=== PATIENT | male | born 1945 | race Caucasian/White ===

== ENCOUNTER 2018-09-09 19:45 | Inpatient (IN) | payer MEDICARE, OTHER ==
[~2018-09-09] VITALS: Ht 172.7 cm; Wt 59.6 kg
[2018-09-09] MEDS ORDERED: RT-ALBUTEROL SULF 2.5 MG/3 ML PRE-MIX VIAL INH STA (19:54)
[2018-09-09] MEDS ORDERED: RT-ALBUTEROL/IPRATROPIUM 3 ML (DUONEB) VIAL INH ONE (20:00)
[2018-09-09 20:20] LABS: BASOPHILS % (AUTO) 0 % (0-10); EOSINOPHILS % (AUTO) 0 % (0-10); HEMATOCRIT 42 % (40-54); HEMOGLOBIN 13.8 G/DL (13.3-17.7); LYMPHOCYTES # (AUTO) 2.3 X 10^3 (1.0-4.0); LYMPHOCYTES % (AUTO) 14 % (12-44); MEAN CORPUSCULAR HEMOGLOBIN 29 PG (25-34); MEAN CORPUSCULAR HGB CONC 33 G/DL (32-36); MEAN CORPUSCULAR VOLUME 89 FL (80-99); MEAN PLATELET VOLUME 10.1 FL (7.4-10.4); MONOCYTES # (AUTO) 1.4 X 10^3 (0.0-1.0); MONOCYTES % (AUTO) 9 % (0-12); NEUTROPHILS # (AUTO) 12.6 X 10^3 (1.8-7.8); NEUTROPHILS % (AUTO) 77 % (42-75); PLATELET COUNT 277 10^3/uL (130-400); RED CELL DISTRIBUTION WIDTH 15.5 % (10.0-14.5); WHITE BLOOD COUNT 16.3 10^3/uL (4.3-11.0)
--- NOTE | 2018-09-09 20:29 | Diagnostic Imaging Report ---
Indication: Shortness of breath. Time of exam: 8:07 PM No prior studies available for comparison. Right hemidiaphragm is mildly elevated. There is some scarring in the right base. Lungs are hyperinflated consistent with COPD. No infiltrates are seen. No pneumothorax Impression: Chronic changes. No acute cardiopulmonary process is detected. Dictated by: Dictated on workstation # [id number]
[2018-09-09 20:32] LABS: INR 1.1 (0.8-1.4); PROTHROMBIN TIME PATIENT 14.5 SEC (12.2-14.7)
[2018-09-09 20:37] VITALS: BP 123/92
--- NOTE | 2018-09-09 20:43 | ED General ---
General Chief Complaint: Respiratory Problems Stated Complaint: SOB Nursing Triage Note: PT PRESENTED TO THE [facility] COMPLAINING OF SOB, STAFF ONSITE FOUND THE PT TO BE 60% ON ROOM AIR. 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 UPON PRESENTATION THE PT STATES HE HAS HAD A PRODUCTIVE COUGH FOR ALOST ONE WEEK. DENIES USING BREATHING TREATMENTS OR HOME OXYGEN. Nursing Sepsis Screen: Possible Sepsis Risk Source of Information: Patient Exam Limitations: No Limitations History of Present Illness Date Seen by Provider: Sep 10, 2018 Time Seen by Provider: 19:46 Initial Comments This 73-year-old man presents to the emergency room via EMS directly from the [facility] clinic where he was found to have oxygen saturations in the 60s. He is placed on 4 L nasal cannula and started on a DuoNeb treatment by EMS. Oxygen saturations recovered into the 90s with these measures. He was also given Solu- Medrol 125 mg by IV route. Lung sounds were rather course for EMS. Patient has had some cough but denies fever. He denies any history of COPD or ever needing any breathing treatments. He states he does not typically see a doctor but was sent here from [facility]. He does not claim a particular primary care provider. Allergies and Home Medications Allergies Coded Allergies: Penicillins (Verified Allergy, Unknown, 09/09/18) Patient Home Medication List Home Medication List Reviewed: Yes Review of Systems Review of Systems Constitutional: no symptoms reported EENTM: no symptoms reported Respiratory: see HPI Cardiovascular: no symptoms reported Gastrointestinal: no symptoms reported Genitourinary: no symptoms reported Musculoskeletal: no symptoms reported Skin: no symptoms reported Psychiatric/Neurological: No Symptoms Reported Hematologic/Lymphatic: No Symptoms Reported Immunological/Allergic: no symptoms reported Past Hkzuodd-Viunii-Gbluid Hx Patient Social History Recent Foreign Travel: No Contact w/Someone Who Travel: No Recent Infectious Disease Expo: No Past Medical History Surgeries: Yes Bowel Surgery Respiratory: No Cardiac: No Neurological: No Reproductive Disorders: No Genitourinary: Yes Prostate Problems Gastrointestinal: No Musculoskeletal: No Endocrine: No HEENT: No Cancer: Yes (stomach or prostate, patient is unsure) Physical Exam-Suspected Sepsis Physical Exam Vital Signs Vital Signs - First Documented 09/09/18 19:47 Temp 98.3 Pulse 94 Resp 22 B/P (MAP) 143/76 (98) Pulse Ox 96 O2 Delivery Non Rebreather O2 Flow Rate 10.00 Capillary Refill : Less Than 3 Seconds Blood Pressure Mean: 98 Height, Weight, BMI Height: 0'65.00" Weight: 125lbs. oz. 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 Skin: normal color, warm/dry Focused Exam Sepsis Stage: Severe Sepsis Possible Source: Pulmonary Lactate Level 09/09/18 17:52: Lactic Acid Level 1.89 Time of Focused Exam: 22:02 Respiratory: Lungs Clear (on BiPAP) Cardiovascular: Regular Rate, Rhythm, No Edema, No Murmur Capillary Refill: Less Than 3 Seconds Peripheral Pulses: 2+ Radial Pulses (L) Skin: normal color, warm/dry Lactic Acid Level Within 3hrs of presentation: Admin fluids, Admin 30ml/kg IBW due to BMI>30, Admin ABX, Blood cultures prior to ABX's, Focus exam, Lactate level Progress/Results/Core Measures Suspected Sepsis Recent Fever Within 48 Hours: No Infection Criteria Present: Suspected New Infection New/Unexplained Altered Menta: No Sepsis Screen: Possible Sepsis Risk SIRS Temperature:98.3 Pulse: 94 Respiratory Rate: 22 Laboratory Tests 09/09/18 17:52: White Blood Count 16.3H 09/10/18 02:00: White Blood Count 9.3 Blood Pressure 143 /76 Mean: 98 09/09/18 17:52: Lactic Acid Level 1.89 Laboratory Tests 09/09/18 17:52: Creatinine 1.17, INR Comment 1.1, Platelet Count 277, Total Bilirubin 0.5 09/10/18 02:00: Creatinine 1.05, Platelet Count 269, Total Bilirubin 0.4 Results/Orders Lab Results Laboratory Tests Test 09/09/18 17:52 09/10/18 02:00 09/10/18 06:25 09/10/18 06:31 Range/Units White Blood Count 16.3 H 9.3 4.3-11.0 10^3/uL Red Blood Count 4.69 4.28 L 4.35-5.85 10^6/uL Hemoglobin 13.8 12.8 L 13.3-17.7 G/DL Hematocrit 42 38 L 40-54 % Mean Corpuscular Volume 89 89 80-99 FL Mean Corpuscular Hemoglobin 29 30 25-34 PG Mean Corpuscular Hemoglobin Concent 33 34 32-36 G/DL Red Cell Distribution Width 15.5 H 15.3 H 10.0-14.5 % Platelet Count 277 269 130-400 10^3/uL Mean Platelet Volume 10.1 9.3 7.4-10.4 FL Neutrophils (%) (Auto) 77 H 90 H 42-75 % Lymphocytes (%) (Auto) 14 9 L 12-44 % Monocytes (%) (Auto) 9 1 0-12 % Eosinophils (%) (Auto) 0 0 0-10 % Basophils (%) (Auto) 0 0 0-10 % Neutrophils # (Auto) 12.6 H 8.3 H 1.8-7.8 X 10^3 Lymphocytes # (Auto) 2.3 0.9 L 1.0-4.0 X 10^3 Monocytes # (Auto) 1.4 H 0.1 0.0-1.0 X 10^3 Eosinophils # (Auto) 0.0 0.0 0.0-0.3 10^3/uL Basophils # (Auto) 0.0 0.0 0.0-0.1 10^3/uL Neutrophils % (Manual) 75 % Lymphocytes % (Manual) 17 % Monocytes % (Manual) 8 % Blood Morphology Comment NORMAL Prothrombin Time 14.5 12.2-14.7 SEC INR Comment 1.1 0.8-1.4 Activated Partial Thromboplast Time 33 24-35 SEC Sodium Level 142 142 135-145 MMOL/L Potassium Level 4.0 4.3 3.6-5.0 MMOL/L Chloride Level 108 H 110 H 98-107 MMOL/L Carbon Dioxide Level 18 L 18 L 21-32 MMOL/L Anion Gap 16 H 14 5-14 MMOL/L Blood Urea Nitrogen 16 17 7-18 MG/DL Creatinine 1.17 1.05 0.60-1.30 MG/DL Estimat Glomerular Filtration Rate > 60 > 60 BUN/Creatinine Ratio 14 16 Glucose Level 133 H 132 H 70-105 MG/DL Lactic Acid Level 1.89 0.50-2.00 MMOL/L Calcium Level 9.7 9.1 8.5-10.1 MG/DL Corrected Calcium 9.9 9.6 8.5-10.1 MG/DL Total Bilirubin 0.5 0.4 0.1-1.0 MG/DL Aspartate Amino Transf (AST/SGOT) 26 21 5-34 U/L Alanine Aminotransferase (ALT/SGPT) 20 17 0-55 U/L Alkaline Phosphatase 59 51 40-136 U/L Troponin I 0.040 H 0.150 H 0.125 H <0.028 NG/ML C-Reactive Protein High Sensitivity 19.59 H 0.00-0.50 MG/DL B-Type Natriuretic Peptide 75.7 <100.0 PG/ML Total Protein 7.6 6.8 6.4-8.2 GM/DL Albumin 3.7 3.4 3.2-4.5 GM/DL Phosphorus Level 2.1 L 2.3-4.7 MG/DL Magnesium Level 1.9 1.8-2.4 MG/DL Blood Gas Puncture Site R RAD Blood Gas Patient Temperature 96.3 Arterial Blood pH 7.35 L 7.37-7.43 Arterial Blood Partial Pressure CO2 33 L 35-45 MMHG Arterial Blood Partial Pressure O2 63 L 79-93 MMHG Arterial Blood HCO3 18 L 23-27 MMOL/L Arterial Blood Total CO2 19.3 L 21.0-31.0 MMOL/L Arterial Blood Oxygen Saturation 94 94-100 % Arterial Blood Base Excess -6.6 L -2.5-2.5 MMOL/L Julian Test YES-POS Blood Gas Ventilator Setting NO Blood Gas Inspired Oxygen 4L HIGH FLOW Micro Results Microbiology 09/09/18 Influenza Types A,B Antigen (LILY) - Final, Complete My Orders Orders - IVAN DELUCA MD Albuterol Pre-Mix Nebs (Rt) (Proventil (09/09/18 19:54) Albuterol/Ipra Inhalation Soln (Duoneb I (09/09/18 20:00) Svn Small Volume Nebulizer (09/09/18 19:54) Svn Small Volume Nebulizer (09/09/18 19:54) Cbc With Automated Diff (09/09/18 19:56) Comprehensive Metabolic Panel (09/09/18 19:56) Blood Culture (09/09/18 19:56) Sputum Culture (09/09/18 19:56) Urinalysis (09/09/18 19:56) Urine Culture (09/09/18 19:56) Protime With Inr (09/09/18 19:56) Partial Thromboplastin Time (09/09/18 19:56) Chest 1 View, Ap/Pa Only (09/09/18 19:56) Ed Iv/Invasive Line Start (09/09/18 19:56) Vital Signs Adult Sepsis Patie Q15M (09/09/18 19:56) O2 (09/09/18 19:56) Remove Rings In Anticipation O (09/09/18 19:56) Lactic Acid Analyzer (09/09/18 19:56) Influenza A And B Antigens (09/09/18 19:56) BNP (09/09/18 19:56) Hs C Reactive Protein (09/09/18 19:56) Troponin I (09/09/18 19:56) Ekg Tracing (09/09/18 19:56) Monitor-Rhythm Ecg Trace Only (09/09/18 19:56) Manual Differential (09/09/18 17:52) Levofloxacin 750 Mg/150 Ml Iv (Levaquin (09/09/18 21:45) Ns Iv 1000 Ml (Sodium Chloride 0.9%) (09/09/18 21:54) Aspirin Chewable Tablet (Baby Aspirin Ch (09/09/18 22:15) Medications Given in ED Current Medications Medications Dose Ordered Sig/Mauricio Route Start Time Stop Time Status Last Admin Dose Admin Levofloxacin/ Dextrose 150 ml @ 100 mls/hr ONCE ONCE IV 09/09/18 21:45 09/09/18 23:14 DC 09/09/18 21:53 100 MLS/HR Vital Signs/I&O 09/09/18 09/09/18 09/09/18 09/09/18 22:14 23:36 23:40 23:41 Temp 97.5 Pulse 91 109 95 Resp 24 B/P (MAP) 139/76 (97) Pulse Ox 96 94 O2 Delivery High Flow N/C O2 Flow Rate 50.00 7.00 50.00 409/09/18 09/10/18 09/10/18 23:42 23:46 00:00 01:00 Pulse 75 Pulse Ox 97 97 O2 Delivery High Flow N/C High Flow N/C High Flow N/C O2 Flow Rate 7.00 10.00 7.00 09/10/18 09/10/18 09/10/18 09/10/18 01:00 01:15 01:30 01:32 Pulse 75 74 69 Resp 24 21 20 B/P (MAP) 102/60 (74) 100/54 (69) 99/54 (69) Pulse Ox 97 97 O2 Delivery High Flow N/C High Flow N/C High Flow N/C High Flow N/C O2 Flow Rate 7.00 7.00 4.00 8.00 09/10/18 09/10/18 09/10/18 09/10/18 01:45 02:00 03:00 04:00 Pulse 75 78 67 75 Resp 23 22 16 32 B/P (MAP) 113/62 (79) 115/68 (84) 103/55 (71) 122/67 (85) Pulse Ox 95 94 95 93 O2 Delivery High Flow N/C High Flow N/C High Flow N/C High Flow N/C O2 Flow Rate 4.00 4.00 4.00 4.00 09/10/18 09/10/18 09/10/18 09/10/18 04:00 04:00 05:00 06:00 Temp 98.8 Pulse 58 51 Resp 19 23 B/P (MAP) 100/51 (67) 98/50 (66) Pulse Ox 95 94 95 O2 Delivery High Flow N/C High Flow N/C High Flow N/C O2 Flow Rate 4.00 4.00 4.00 09/10/18 09/10/18 09/10/18 09/10/18 06:30 07:00 07:00 08:00 Pulse 85 82 Resp 18 B/P (MAP) 111/68 (82) Pulse Ox 94 95 O2 Delivery High Flow N/C High Flow N/C High Flow N/C O2 Flow Rate 4.00 4.00 4.00 09/10/18 09/10/18 08:00 09:00 Pulse 75 50 Resp 27 20 B/P (MAP) 110/67 (81) 105/54 (71) O2 Delivery High Flow N/C High Flow N/C O2 Flow Rate 4.00 4.00 09/10/18 00:00 Intake Total 200 ml Balance 200 ml Capillary Refill : Less Than 3 Seconds Blood Pressure Mean: 98 Progress Note #1: Time: 20:41 Progress Note Patient was seen and examined immediately upon arrival. Due to his respiratory failure, pneumonia was considered a possibility and septic workup was pursued. He received Solu-Medrol 124 mg IV at [facility]. A DuoNeb treatment was being administered in route. A one hour nebulizer treatment is now being given and patient was placed on BiPAP. Chest x-ray showed no acute abnormalities. White count was 16,000 which may relate to the recent Solu-Medrol dose. CRP is pending and should help assess for infectious causes. Influenza screen was negative. Progress Note #2: Time: 22:03 Progress Note CRP was markedly elevated. The markings in the lung bases previously thought to be chronic lung markings could represent bibasilar pneumonia. Severe sepsis is suspected. Levaquin is now being administered. Patient received a partial liter of IV normal saline in route. We will complete a 2 L IV normal saline bolus which would be greater than the 30 ML per kilogram recommended in severe sepsis. Patient is stable on CPAP at this time. Blood cultures and lactic acid were drawn prior to administering Levaquin. Case was discussed with Dr. Gross, Dr. Odonnell, and Dr. Pagan. They're agreeable to admission. I discussed the case with a [facility] Lowery at the [facility] [place] per patient's request. He and I both agree it would not be in the patient's best interest to transfer him to a [facility] given his respiratory failure. We both agree he should be admitted to the ICU here. Patient is willing, although he did threaten to leave [place] due to reluctance to stay overnight in the hospital. I discussed CODE STATUS with him and he elects to be full code at this time. Severe sepsis order set was used along with bridging orders and admitting this patient. Dr. Pagan was consulted due to elevated troponin which was likely secondary to hypoxia. Patient denies any chest pain today and denies any history of heart disease. Patient will be given aspirin 324 mg prior to admission. ECG Initial ECG Impression Date: Sep 09, 2018 Initial ECG Impression Time: 20:09 Initial ECG Rate: 93 Initial ECG Rhythm: Normal Sinus Initial ECG Intervals: Normal Initial ECG Impression: Normal Comment Normal sinus rhythm with no ST elevation or depression. No abnormal intervals or axis deviation. Diagnostic Imaging Diagonstic Imaging: Xray Plain Films/CT/US/NM/MRI: chest Comments Chest x-ray viewed by me and report reviewed. See report below: NAME: SELENA JARAMILLO REC#: [id number] PT STATUS: REG ER : 1945 PHYSICIAN: IVAN DELUCA MD ADMIT DATE: 09/09/18/ER Draft Date of Exam:09/09/18 CHEST 1 VIEW, AP/PA ONLY Indication: Shortness of breath. Time of exam: 8:07 PM No prior studies available for comparison. Right hemidiaphragm is mildly elevated. There is some scarring in the right base. Lungs are hyperinflated consistent with COPD. No infiltrates are seen. No pneumothorax Impression: Chronic changes. No acute cardiopulmonary process is detected. Dictated on workstation # [id number] Dict: 09/09/182017 Trans: 09/09/182027 CV [id number] Interpreted by: MATTHEW PEÑA MD Departure Communication (Admissions) Time/Spoke to Admitting Phy: 21:45 Dr. Gross 21:48 Dr. Odonnell 21:52 Dr. Pagan Impression Primary Impression: Severe sepsis Additional Impressions: Respiratory failure Qualified Codes: J96.01 - Acute respiratory failure with hypoxia COPD exacerbation Elevated troponin Pneumonia Qualified Codes: J18.1 - Lobar pneumonia, unspecified organism Disposition: ADMITTED INPATIENT Condition: Improved Admissions Decision to Admit Reason: Admit from ER (General) Decision to Admit/Date: Sep 10, 2018 Time/Decision to Admit Time: 19:46 Departure-Patient Inst. Referrals: [facility] (PCP/Family) Primary Care Physician IVAN DELUCA MD Sep 09, 2018 20:43
--- OUTSIDE RECORDS SUMMARY | 2018-09-09 20:44 | XMS REPORT | Continuity of Care Document ---
Author Organization Unknown Address Unknown Allergies Active Description Code Type Severity Reaction Onset Reported/Identified Relationship to Patient Clinical Status Yes Penicillins Drug Allergy 04/03/2012 Medications There is no data. Problems Date Dx Coded Attending Type Code Diagnosis Diagnosed By 04/03/2012 MIGUEL ANGEL RUIZ APRN 272.4 HYPERLIPIDEMIA 04/03/2012 MIGUEL ANGEL RUIZ APRN 305.1 TOBACCO ABUSE 04/03/2012 272.4 HYPERLIPIDEMIA 04/03/2012 305.1 TOBACCO ABUSE 04/03/2012 MIGUEL ANGEL RUIZ APRN 272.4 HYPERLIPIDEMIA 04/03/2012 MIGUEL ANGEL RUIZ APRN 305.1 TOBACCO ABUSE 04/03/2012 MIGUEL ANGEL RUIZ APRN 272.4 HYPERLIPIDEMIA 04/03/2012 MIGUEL ANGEL RUIZ APRN 305.1 TOBACCO ABUSE 04/03/2012 272.4 HYPERLIPIDEMIA 04/03/2012 305.1 TOBACCO ABUSE 05/08/2012 V76.44 PROSTATE CANCER SCREENING 05/08/2012 MIGUEL ANGEL RUIZ APRN V76.44 PROSTATE CANCER SCREENING 05/08/2012 MIGUEL ANGEL RUIZ APRN V76.44 PROSTATE CANCER SCREENING 05/08/2012 V76.44 PROSTATE CANCER SCREENING 05/17/2012 MIGUEL ANGEL RUIZ APRN 593.9 RENAL INSUFFICIENCY 05/17/2012 MIGUEL ANGEL RUIZ APRN 593.9 RENAL INSUFFICIENCY 05/17/2012 593.9 RENAL INSUFFICIENCY Procedures Code [place] [address] ROUTINE VENIPUNCTURE 04/05/2012 10589 XRAY CHEST 2 VIEW 04/05/2012 32238 CMP 04/05/2012 90756 LIPID PANEL 04/05/2012 88069 PSA FREE AND TOTAL 04/05/2012 96638 TSH 04/05/2012 82167 CBC 04/05/2012 40424 EKG, TRACING (IN-HOUSE) 04/05/2012 00101 SPIROMETRY 05/17/2012 36056 BRONCHODILATION PRE/POST 05/17/2012 16078 RESPIRATORY FLOW VOLUME LOOP 05/17/2012 18851 ROUTINE VENIPUNCTURE 06/18/20121587728 GFR CALC (RESULT ONLY) 06/18/2012 97050 BMP 06/18/2012 Results There is no data. Encounters ACCT No. Visit Date/Time Discharge Status Pt. Type Provider Facility Loc./Unit Complaint [id number] 06/18/2012 14:04:00 06/18/2012 23:59:59 [facility] Outpatient MIGUEL ANGEL RUIZ APRN [id number] 05/17/2012 10:39:00 05/17/2012 23:59:59 [facility] Outpatient MIGUEL ANGEL RUIZ APRN [id number] 04/05/2012 09:09:00 04/05/2012 23:59:59 [facility] MIGUEL ANGEL RUIZ APRN [id number] 04/03/2012 14:59:00 04/03/2012 23:59:59 [facility] Outpatient [id number] 09/06/2012 10:57:00 Document Registration
[2018-09-09 20:51] LABS: ALANINE AMINOTRANSFERASE 20 U/L (0-55); ALBUMIN 3.7 GM/DL (3.2-4.5); ALKALINE PHOSPHATASE 59 U/L (40-136); BILIRUBIN,TOTAL 0.5 MG/DL (0.1-1.0); BUN/CREATININE RATIO 14; CALCIUM 9.7 MG/DL (8.5-10.1); CARBON DIOXIDE 18 MMOL/L (21-32); CHLORIDE 108 MMOL/L (98-107); CREATININE SERUM 1.17 MG/DL (0.60-1.30); GFR ESTIMATED > 60; GLUCOSE 133 MG/DL (70-105); SODIUM 142 MMOL/L (135-145); TOTAL PROTEIN 7.6 GM/DL (6.4-8.2)
[2018-09-09 20:54] LABS: LYMPHOCYTES % (MANUAL) 17 %; MONOCYTES % (MANUAL) 8 %; NEUTROPHILS % (MANUAL) 75 %; RBC MORPH NORMAL
[2018-09-09] MEDS ORDERED: LEVOFLOXACIN 750 MG/150 ML IV 150 ML IV ONE (21:45)
[2018-09-09] MEDS ORDERED: NS IV 1000 ML 1,000 ML IV ONE (21:54)
[2018-09-09 22:14] VITALS: BP 118/76
[2018-09-09] MEDS ORDERED: ASPIRIN 81 MG CHEW (CHILDREN'S ASA) PO ONE (22:15)
--- OUTSIDE RECORDS SUMMARY | 2018-09-09 22:25 | XMS REPORT | Continuity of Care Document ---
[...] Procedures Code Description [place] [address] ROUTINE VENIPUNCTURE 04/05/2012 82172 XRAY CHEST 2 VIEW 04/05/2012 70429 CMP 04/05/2012 07030 LIPID PANEL 04/05/2012 39648 PSA FREE AND TOTAL 04/05/2012 70863 TSH 04/05/2012 79072 CBC 04/05/2012 25637 EKG, TRACING (IN-HOUSE) 04/05/2012 16279 SPIROMETRY 05/17/2012 90034 BRONCHODILATION PRE/POST 05/17/2012 61871 RESPIRATORY FLOW VOLUME LOOP 05/17/2012 37457 ROUTINE VENIPUNCTURE 06/18/20129871818 GFR CALC (RESULT ONLY) 06/18/2012 23466 BMP 06/18/2012 Results There is no data. Encounters ACCT No. Visit Date/Time Discharge Status Pt. Type Provider Facility Loc./Unit Complaint [id number] 06/18/2012 14:04:00 06/18/2012 23:59:59 [facility] Outpatient MIGUEL ANGEL RUIZ APRN [id number] 05/17/2012 10:39:00 05/17/2012 23:59:59 [facility] Outpatient MIGUEL ANGEL RUIZ APRN [id number] 04/05/2012 09:09:00 04/05/2012 23:59:59 [facility] MIGUEL ANGEL RUIZ APRN [id number] 04/03/2012 14:59:00 04/03/2012 23:59:59 [facility] Outpatient [id number] 09/06/2012 10:57:00 Document Registration
[2018-09-09 23:36] VITALS: BP 139/76
[2018-09-10] VITALS (26 sets, daily range): BP systolic 98–122; BP diastolic 50–68
[2018-09-10] MEDS ORDERED: NS IV 1000 ML 1,000 ML ONE (01:17)
[2018-09-10] MEDS ORDERED: RT-ALBUTEROL/IPRATROPIUM 3 ML (DUONEB) VIAL ONE (01:20)
[2018-09-10] MEDS ORDERED: NOREPINEPHRINE 4 MG in NS (IVPB) 250 ML IV SCH (01:40)
[2018-09-10] MEDS ORDERED: VASOPRESSIN INJECTION 20 UNIT in NS (IVPB) 100 ML IV SCH (01:40)
[2018-09-10] MEDS: NS IV 1000 ML 1,000 ML IV SCH ×6 (01:44→22:14)
[2018-09-10] MEDS ORDERED: EPINEPHrine 1 MG INJECTION 2 MG in NS (IVPB) 250 ML IV SCH (01:45)
[2018-09-10] MEDS ORDERED: RT-ALBUTEROL SULF 2.5 MG/3 ML PRE-MIX VIAL IH PRN (01:45)
[2018-09-10] MEDS ORDERED: LEVOFLOXACIN 750 MG/D5W 150 ML PRE-MIX IV SCH (01:45)
[2018-09-10 02:09] LABS: BASOPHILS % (AUTO) 0 % (0-10); EOSINOPHILS % (AUTO) 0 % (0-10); HEMATOCRIT 38 % (40-54); HEMOGLOBIN 12.8 G/DL (13.3-17.7); LYMPHOCYTES # (AUTO) 0.9 X 10^3 (1.0-4.0); LYMPHOCYTES % (AUTO) 9 % (12-44); MEAN CORPUSCULAR HEMOGLOBIN 30 PG (25-34); MEAN CORPUSCULAR HGB CONC 34 G/DL (32-36); MEAN CORPUSCULAR VOLUME 89 FL (80-99); MEAN PLATELET VOLUME 9.3 FL (7.4-10.4); MONOCYTES # (AUTO) 0.1 X 10^3 (0.0-1.0); MONOCYTES % (AUTO) 1 % (0-12); NEUTROPHILS # (AUTO) 8.3 X 10^3 (1.8-7.8); NEUTROPHILS % (AUTO) 90 % (42-75); PLATELET COUNT 269 10^3/uL (130-400); RED CELL DISTRIBUTION WIDTH 15.3 % (10.0-14.5); WHITE BLOOD COUNT 9.3 10^3/uL (4.3-11.0)
[2018-09-10 02:26] LABS: ALANINE AMINOTRANSFERASE 17 U/L (0-55); ALBUMIN 3.4 GM/DL (3.2-4.5); ALKALINE PHOSPHATASE 51 U/L (40-136); BILIRUBIN,TOTAL 0.4 MG/DL (0.1-1.0); BUN/CREATININE RATIO 16; CALCIUM 9.1 MG/DL (8.5-10.1); CARBON DIOXIDE 18 MMOL/L (21-32); CHLORIDE 110 MMOL/L (98-107); CREATININE SERUM 1.05 MG/DL (0.60-1.30); GFR ESTIMATED > 60; GLUCOSE 132 MG/DL (70-105); MAGNESIUM 1.9 MG/DL (1.8-2.4); PHOSPHORUS 2.1 MG/DL (2.3-4.7); POTASSIUM 4.3 MMOL/L (3.6-5.0); SODIUM 142 MMOL/L (135-145); TOTAL PROTEIN 6.8 GM/DL (6.4-8.2)
[2018-09-10] MEDS: methylPREDNISolone 40 MG/ML (Solu-MEDROL) VIAL IV SCH ×4 (03:27→17:58)
--- NOTE | 2018-09-10 05:53 | Pulmonary Consultation ---
History of Present Illness History of Present Illness Date of Consultation 09/10/18 05:47 Time Seen by Provider: 05:48 Date of Admission History of Present Illness 73yo with hx of extensive tobacco hx presented to ED secondary to persistent worsening cough. Pt was found to be hypoxic at 60% on RA. He does not use oxygen at home and he has not been dx with COPD in the past. Pt received duoneb and solumedrol IV in the ED. He states he has had similar episodes in the past. right now he is feeling slightly improved. He does not have any home inhalers. I am consulted for pulmonary/CC management. Allergies and Home Medications Allergies Coded Allergies: Penicillins (Verified Allergy, Unknown, 09/09/18) Past Bsbauzk-Wgkqed-Zkcyfe Hx Patient Social History Alcohol Use: Denies Use Recreational Drug Use: No Smoking Status: Current Everyday Smoker Type Used: Cigarettes Recent Foreign Travel: No Contact w/Someone Who Travel: No Recent Infectious Disease Expo: No Recent Hopitalizations: No Immunizations Up To Date Tetanus Booster (TDap): More than 5yrs PED Vaccines UTD: Yes Seasonal Allergies Seasonal Allergies: No Past Medical History Surgeries: Yes Bowel Surgery Respiratory: No Cardiac: No Neurological: No Genitourinary: Yes (MALIGNANT NEOPLASM) Prostate Problems, Renal Failure Gastrointestinal: Yes (CA OF THE STOMACH) Endocrine: No HEENT: No Cancer: No Psychosocial: No Integumentary: No Review of Systems Time Seen by Provider: 08:23 Constitutional: Sweats, Weakness, Malaise; No: Fever, Chills, Other Eyes: No: Pain, Vision change, Conjunctivae inflammation, Eyelid inflammation, Other, Redness ENT: Nose congestion; No: Ear pain, Ear discharge, Nose pain, Nose discharge, Mouth pain, Mouth swelling, Throat pain, Throat swelling, Other Respiratory: Cough, Dry, Shortness of breath, SOB with excertion, Wheezing; No : Hemoptysis, Pleuritic Pain Cardiovascular: Palpitations, Paroxysmal Noc. Dyspnea; No: Chest Pain, Orthopnea, Edema, Lt Headedness, Other Gastrointestinal: No: Nausea, Vomiting, Abdominal Pain, Diarrhea, Constipation , Melena, Hematochezia, Other Sepsis Event Evaluation Height, Weight, BMI Height: 5'8.00" Weight: 128lbs. 3.0oz. 58.130288rj; 19.5 BMI Method:Stated Exam Exam Vital Signs Date Time Temp Pulse Resp B/P (MAP) Pulse Ox O2 Delivery O2 Flow Rate FiO2 09/10/18 05:00 58 19 100/51 (67) 94 High Flow N/C 7.00 09/10/18 04:00 95 High Flow N/C 4.00 09/10/18 04:00 98.8 09/10/18 04:00 75 32 122/67 (85) 93 High Flow N/C 7.00 09/10/18 03:00 67 16 103/55 (71) 95 High Flow N/C 7.00 09/10/18 02:00 78 22 115/68 (84) 94 High Flow N/C 7.00 09/10/18 01:45 75 23 113/62 (79) 95 High Flow N/C 7.00 09/10/18 01:32 97 High Flow N/C 8.00 09/10/18 01:30 69 20 99/54 (69) 97 High Flow N/C 7.00 09/10/18 01:15 74 21 100/54 (69) High Flow N/C 7.00 09/10/18 01:00 75 24 102/60 (74) High Flow N/C 7.00 09/10/18 01:00 75 09/10/18 00:00 97 High Flow N/C 7.00 09/09/18 23:46 High Flow N/C 10.00 09/09/18 23:42 97 High Flow N/C 7.00 09/09/18 23:41 95 09/09/18 23:40 50.00 09/09/18 23:36 97.5 109 24 139/76 (97) 94 High Flow N/C 7.00 09/09/18 22:14 91 96 50.00 09/09/18 20:52 98.3 94 22 123/92 94 50.00 09/09/18 20:37 94 94 50.00 09/09/18 19:47 98.3 94 22 143/76 (98) 96 Non Rebreather 10.00 09/09/18 19:47 Non Rebreather 10.00 I & O 09/10/18 07:00 Intake Total 200 ml Output Total 100 ml Balance 100 ml Height & Weight Height: 5'8.00" Weight: 128lbs. 3.0oz. 58.784945sr; 19.5 BMI Method:Stated General Appearance: No Apparent Distress, WD/WN HEENT: PERRL/EOMI, Normal ENT Inspection, Pharynx Normal Neck: Full Range of Motion, Non Tender, Supple Cardiovascular: Regular Rate, Rhythm, No Edema, No Murmur Capillary Refill: Less Than 3 Seconds Peripheral Pulses: 2+ Radial Pulses (L) Gastrointestinal: normal bowel sounds, non tender, soft, no organomegaly, no pulsatile mass Extremity: Normal Capillary Refill Neurologic/Psychiatric: Alert, Oriented x3 Skin: Normal Color, Warm/Dry Lymphatic: No Adenopathy Results Lab Laboratory Tests 09/09/18 17:52 09/10/18 02:00 Assessment/Plan Assessment/Plan Acute on chronic respiratory failure -Vent to mask COPDAE with hypoxia -Check ABG -Check CTA r/o PE -Solumedrol 40 IV Q 6 -SVNS with duonebQ4 -Start Advair Pneumonia with severe sepsis -Change Levaquin to Cefepime Hypotension - mild -Give liter bolus over 2 hours Decreased UO -Give liter bolus -Bladder scan NSTEMI - probably secondary to hypoxia -repeat troponin -Cardiology consulted -Pt ELINA Ram CP, DO Sep 10, 2018 05:53
[2018-09-10] MEDS ORDERED: SODIUM PHOSPHATE INJ 30 MM in NS (IVPB) 250 ML IV ONE (06:15)
[2018-09-10] MEDS ORDERED: NS IV 1000 ML 1,000 ML IV SCH (06:15)
[2018-09-10] MEDS: RT-ALBUTEROL/IPRATROPIUM 3 ML (DUONEB) VIAL IH SCH ×5 (06:27→22:41)
[2018-09-10 06:31] LABS: ABG BASE EXCESS -6.6 MMOL/L (-2.5-2.5); ABG OXYGEN SATURATION 94 % (94-100); ABG PCO2 33 MMHG (35-45); ABG PH 7.35 (7.37-7.43); ABG PO2 63 MMHG (79-93); ABG TCO2 19.3 MMOL/L (21.0-31.0); ALLENS TEST YES-POS; INSPIRED O2 4L HIGH FLOW; PATIENT TEMP 96.3; VENTILATOR NO
[2018-09-10] MEDS ORDERED: WATER (STERILE) FOR INJECTION 10 ML ONE (06:37)
[2018-09-10] MEDS ORDERED: CEFEPIME 1 GM (MAXIPIME) VIAL ONE (06:37)
[2018-09-10] MEDS: CEFEPIME INJECTION 1,000 MG in WATER (STERILE) FOR INJECTION 10 ML IV SCH ×3 (06:44→17:59)
--- NOTE | 2018-09-10 08:14 | Diagnostic Imaging Report ---
INDICATION: Sepsis, pneumonia, COPD. TECHNIQUE: Frontal view of the chest. COMPARISON: 09/09/2018 FINDINGS: Lung volumes are large. There are airspace and interstitial opacities in the lung bases. The cardiac silhouette is normal in size. No pneumothorax or pleural effusion is seen. IMPRESSION: 1. Stable bibasilar pulmonary opacities, which are age-indeterminate. These may represent chronic scarring versus acute infiltrate. Dictated by: Dictated on workstation # [id number]
[2018-09-10] MEDS ORDERED: HOLD METFORMIN - RECEIVED CONTRAST 20 ML VIAL IV SCH (09:00)
[2018-09-10] MEDS ORDERED: IOHEXOL 350 MG/ML 100 ML (OMNIPAQUE 350) VIAL IV ONE (09:00)
[2018-09-10] MEDS ORDERED: SIMV10TA3 PO (09:47)
[2018-09-10] MEDS ORDERED: VIT1CAPS44 PO (09:47)
[2018-09-10] MEDS ORDERED: ASPI-983 PO (09:47)
[2018-09-10] MEDS ORDERED: RT-ALBUINH IH (09:47)
--- NOTE | 2018-09-10 09:50 | NUR ---
SPOKE WITH THE PATIENT ABOUT HIS MEDICATIONS. HE HAD HIS BOTTLES WITH HIM. HE RECEIVES HIS MEDS FROM THE [facility] IN [place], HE HAS A PROAIR INHALER WELL HIS CHOLESTEROL MEDICATION. HE ALSO TAKES PRESERVISION OTC DAILY WELL ASPIRIN 81MG. HE STATES HE TAKES A HANDFUL OF ASPIRIN EVERY MORNING FOR HIS HEADACHES, HE CAN NOT TELL ME EXACTLY HOW MANY TABS BUT STATES IT IS ALWAYS MORE THAN 3. HE STATES HE DOES NOT REPEAT THIS DOES LATER IN THE DAY.
[2018-09-10] MEDS ORDERED: RT-ALBUTEROL/IPRATROPIUM 3 ML (DUONEB) VIAL INH SCH (10:00)
--- NOTE | 2018-09-10 11:10 | Consultation-Cardiology ---
HPI-Cardiology Cardiology Consultation: Date of Consultation 09/10/18 Time Seen by a Provider: 10:50 Date of Admission 09-09-18 Attending Physician Ilia Perry MD Admitting Physician [facility] Consulting Physician Gloria Pagan MD HPI: Chief Complaint: Chest discomfort Mr. Li is a 73 year old male admitted to ICU 5 from the ED. He reports for the last week he has been having increasing SOB and chest tightness. He reports the tightness in his chest is not r/t activity or emotional stress. He states he has it several times a day, lasting for approx an hour and relieves on its own gradually. He denies any assoc symptoms. He denies any fever or chills. No c/o n/v/d. He reports he smokes cigs, approx 10 per day. He is currently not reporting any chest discomfort. He feels his SOB is better. No c /o LE swelling. [facility]. He is a poor historian. He has family x 1 at the bedside. Review of Systems-Cardiology Review of Systems Constitutional: No chills, No fever Eyes: No vision change Ears/Nose/Throat: No epistaxis, No recent hearing loss Respiratory: As described under HPI Cardiovascular: As described under HPI Gastrointestinal: No constipation, No diarrhea, No nausea, No vomiting Genitourinary: No dysuria, No hematuria Musculoskeletal: no symptoms reported Skin: No rash, No ulcerations Psychiatric/Neurological: No anxiety, No depression, No seizure, No focal weakness, No syncope Hematologic: No bleeding abnormalities COW-Anhkjc-Fmaqve Hx Patient Social History Alcohol Use: Denies Use Recreational Drug Use: No Smoking Status: Current Everyday Smoker Type Used: Cigarettes Recent Foreign Travel: No Recent Infectious Disease Expo: No Hospitalization with Isolation: Denies Immunizations Up To Date Tetanus Booster (TDap): More than 5yrs Past Medical History PMH As described under Assessment. Family Medical History Family Medical History: He reports no known family h/o CAD or premature SCD. Allergies and Home Medications Allergies Coded Allergies: Penicillins (Verified Allergy, Unknown, 09/09/18) Home Medications Albuterol Sulfate 1 Puff Puff, 2 PUFF IH Q4H PRN for SHORTNESS OF BREATH, ( Reported) Aspirin 81 Mg Tablet.dr, 4-5 TAB PO DAILY, (Reported) Simvastatin 10 Mg Tablet, 5 MG PO HS, (Reported) TAKES 1/2 (10MG) TABLET Vit C/E/Zn/Coppr/Lutein/Zeaxan 1 Each Capsule, 1 CAP PO DAILY, (Reported) Patient Home Medication List Home Medication List Reviewed: Yes Physical Exam-Cardiology Physical Exam Vital Signs/I&O 09/10/18 09/10/18 09/10/18 09/10/18 22:00 22:40 22:41 23:00 Pulse 84 61 81 Resp 23 26 29 B/P (MAP) 102/51 (68) 101/51 (68) Pulse Ox 96 96 96 88 O2 Delivery High Flow N/C High Flow N/C Nasal Cannula High Flow N/C O2 Flow Rate 4.00 2.00 4.00 2.00 09/10/18 09/11/18 09/11/18 09/11/18 23:07 00:00 00:00 00:00 Temp 98.8 Pulse 81 62 Resp 23 16 B/P (MAP) 101/54 (70) Pulse Ox 90 96 O2 Delivery High Flow N/C High Flow N/C High Flow N/C O2 Flow Rate 4.00 4.00 4.00 09/11/18 09/11/18 09/11/18 09/11/18 01:00 01:00 02:00 03:00 Pulse 80 80 59 48 Resp 26 20 16 B/P (MAP) 91/53 (66) 104/50 (68) 106/52 (70) Pulse Ox 96 O2 Delivery High Flow N/C High Flow N/C High Flow N/C O2 Flow Rate 4.00 4.00 4.00 09/11/18 09/11/18 09/11/18 09/11/18 03:44 04:00 04:00 04:00 Temp 97.7 Pulse 59 Resp 20 B/P (MAP) 108/69 (82) Pulse Ox 94 97 94 O2 Delivery Nasal Cannula High Flow N/C High Flow N/C O2 Flow Rate 4.00 4.00 4.00 09/11/18 09/11/18 09/11/18 09/11/18 07:00 07:10 08:00 08:00 Pulse 75 84 79 Resp 24 23 B/P (MAP) 109/68 (82) 126/65 (85) Pulse Ox 91 90 O2 Delivery High Flow N/C High Flow N/C High Flow N/C O2 Flow Rate 4.00 5.00 4.00 09/11/18 00:00 Intake Total 2760 ml Output Total 500 ml Balance 2260 ml Capillary Refill : Less Than 3 Seconds Constitutional: AAO x 3, other (thin) HEENT: PERRL, hearing is well preserved, oral hygience is good Neck: No carotid bruit; carotid pulses are 2 + bilaterally Respiratory: No accessory muscle use, No respiratory distress; chest expansion is symmetric, chest is bilaterally symmetric, other (prolonged exp phase; diminished based bilat) Cardiovascular: regular rate-rhythm; No JVD; S1 and S2 Gastrointestinal: No tender; soft, round, audible bowel sounds Rectal: deferred Extremities: no lower extremity edema bilateral Neurologic/Psychiatric: grossly intact, power is 5/5 both on sides Skin: No rash, No ulcerations Data Review Labs Laboratory Tests 09/10/18 13:40: Urine Color YELLOW, Urine Clarity SLIGHTLY CLOUDY, Urine pH 5, Urine Specific Mitchell 1.025H, Urine Protein 2+H, Urine Glucose (UA) NEGATIVE, Urine Ketones 3+ H, Urine Nitrite NEGATIVE, Urine Bilirubin NEGATIVE, Urine Urobilinogen NORMAL, Urine Leukocyte Esterase NEGATIVE, Urine RBC (Auto) 5+H, Urine RBC 50-100H, Urine WBC 2-5, Urine Squamous Epithelial Cells 0-2, Urine Renal Epithelial Cells NONE, Urine Crystals NONE, Urine Bacteria FEWH, Urine Casts PRESENT, Urine Hyaline Casts 2-5H, Urine Mucus NEGATIVE, Urine Yeast FEWH, Urine Culture Indicated NO 09/11/18 03:35: White Blood Count 17.4H, Red Blood Count 4.05L, Hemoglobin 12.0L, Hematocrit 37L , Mean Corpuscular Volume 90, Mean Corpuscular Hemoglobin 30, Mean Corpuscular Hemoglobin Concent 33, Red Cell Distribution Width 15.4H, Platelet Count 307, Mean Platelet Volume 9.6, Neutrophils (%) (Auto) 86H, Lymphocytes (%) (Auto) 8L , Monocytes (%) (Auto) 6, Eosinophils (%) (Auto) 0, Basophils (%) (Auto) 0, Neutrophils # (Auto) 15.0H, Lymphocytes # (Auto) 1.4, Monocytes # (Auto) 1.0, Eosinophils # (Auto) 0.0, Basophils # (Auto) 0.0, Sodium Level 143, Potassium Level 3.6, Chloride Level 115H, Carbon Dioxide Level 14L, Anion Gap 14, Blood Urea Nitrogen 20H, Creatinine 1.00, Estimat Glomerular Filtration Rate > 60, BUN /Creatinine Ratio 20, Glucose Level 138H, Calcium Level 8.4L, Corrected Calcium 9.1, Phosphorus Level 3.4, Magnesium Level 1.8, Total Bilirubin 0.3, Aspartate Amino Transf (AST/SGOT) 31, Alanine Aminotransferase (ALT/SGPT) 18, Alkaline Phosphatase 48, Total Protein 6.1L, Albumin 3.1L Microbiology 09/09/18 Blood Culture - Preliminary, Resulted No growth 09/09/18 Influenza Types A,B Antigen (LILY) - Final, Complete Radiology NAME: SELENA LI [facility] REC#: [id number] PT STATUS: ADM IN : 1945 PHYSICIAN: ILIA PERRY MD ADMIT DATE: 09/09/18/ICU Signed Date of Exam: 09/10/18 CHEST 1 VIEW, AP/PA ONLY INDICATION: Sepsis, pneumonia, COPD. TECHNIQUE: Frontal view of the chest. COMPARISON: 09/09/2018 FINDINGS: Lung volumes are large. There are airspace and interstitial opacities in the lung bases. The cardiac silhouette is normal in size. No pneumothorax or pleural effusion is seen. IMPRESSION: 1. Stable bibasilar pulmonary opacities, which are age-indeterminate. These may represent chronic scarring versus acute infiltrate. Dictated by: Dictated on workstation # [id number] Dict: 09/10/18 0803 Trans: 09/10/18 1041 Interpreted by: JEAN MARIE WASHINGTON MD Electronically signed by: JEAN MARIE WASHINGTON MD 09/10/18 1041 ECG Impression ECG Initial ECG Rhythm: Normal Sinus A/P-Cardiology Assessment/Admission Diagnosis Elevated troponin poss secondary to resp failure/sepsis Pneumonia with sepsis - management per pulmonary services Acute exacerbation of COPD - management per pulmonary services Reported h/o CVA in 2006 - details unknown HLD - statin tx H/O "stomach cancer" approx 20 years ago - treated in [place] - details unknown Tobaccoism - cessation advised Clinical Quality Measures DVT/VTE Risk/Contraindication: Risk Factor Score Per Nursin RFS Level Per Nursing on Admit: 4+=Very High RAISA MONTERO Sep 10, 2018 11:10
--- NOTE | 2018-09-10 12:00 | History & Physicial (CHS) ---
HPI History of Present Illness: 73 yo male sent to ER from walk-in care due to oxygen saturation in the 60s on arrival. He states he is feeling much better this am. He denies any history of medical problems, but on further questioning, he has been on two inhalers for a year or so, and states he takes them regularly. He denies fever, chest pain, cough. He started feeling more short of breath in the last few weeks and had initially had some URI type symptoms. He [facility] from [facility] [place]. Source: patient Date seen by provider: Sep 10, 2018 Time Seen by Provider: 09:00 Attending Physician Ilia Perry MD PCP [facility] [place] Consult Date of Admission Sep 09, 2018 at 21:45 Home Medications Home Medications Reviewed patient Home Medication Reconciliation performed by pharmacy medication reconciliations explosive ordnance disposal technician and/or nursing. Patients Allergies have been reviewed. Allergies Coded Allergies: Penicillins (Verified Allergy, Unknown, 09/09/18) YUD-Guapiq-Rjgkjn Hx Patient Social History Alcohol Use: Denies Use Recreational Drug Use: No Smoking Status: Current Everyday Smoker Type Used: Cigarettes Recent Foreign Travel: No Contact w/other who traveled: No Recent Hopitalizations: No Recent Infectious Disease Expo: No Immunizations Up To Date Tetanus Booster (TDap): More than 5yrs Past Medical History PMHx: COPD suspected Prostate cancer s/p surgical treatment PSurgHx: Prostate Family Medical History Significant Family History: No Pertinent Family Hx Review of Systems (CHC) Constitutional: No fever EENTM: nose congestion Respiratory: see HPI Cardiovascular: No chest pain Gastrointestinal: No abdominal pain, No constipation, No diarrhea, No nausea Genitourinary: No dysuria Musculoskeletal: No joint pain Skin: No rash Psychiatric/Neurological: No Symptoms Reported Reviewed Test Results Reviewed Test Results Lab Laboratory Tests Test 09/09/18 17:52 09/10/18 02:00 09/10/18 06:25 09/10/18 06:31 Range/Units White Blood Count 16.3 H 9.3 4.3-11.0 10^3/uL Red Blood Count 4.69 4.28 L 4.35-5.85 10^6/uL Hemoglobin 13.8 12.8 L 13.3-17.7 G/DL Hematocrit 42 38 L 40-54 % Mean Corpuscular Volume 89 89 80-99 FL Mean Corpuscular Hemoglobin 29 30 25-34 PG Mean Corpuscular Hemoglobin Concent 33 34 32-36 G/DL Red Cell Distribution Width 15.5 H 15.3 H 10.0-14.5 % Platelet Count 277 269 130-400 10^3/uL Mean Platelet Volume 10.1 9.3 7.4-10.4 FL Neutrophils (%) (Auto) 77 H 90 H 42-75 % Lymphocytes (%) (Auto) 14 9 L 12-44 % Monocytes (%) (Auto) 9 1 0-12 % Eosinophils (%) (Auto) 0 0 0-10 % Basophils (%) (Auto) 0 0 0-10 % Neutrophils # (Auto) 12.6 H 8.3 H 1.8-7.8 X 10^3 Lymphocytes # (Auto) 2.3 0.9 L 1.0-4.0 X 10^3 Monocytes # (Auto) 1.4 H 0.1 0.0-1.0 X 10^3 Eosinophils # (Auto) 0.0 0.0 0.0-0.3 10^3/uL Basophils # (Auto) 0.0 0.0 0.0-0.1 10^3/uL Neutrophils % (Manual) 75 % Lymphocytes % (Manual) 17 % Monocytes % (Manual) 8 % Blood Morphology Comment NORMAL Prothrombin Time 14.5 12.2-14.7 SEC INR Comment 1.1 0.8-1.4 Activated Partial Thromboplast Time 33 24-35 SEC Sodium Level 142 142 135-145 MMOL/L Potassium Level 4.0 4.3 3.6-5.0 MMOL/L Chloride Level 108 H 110 H 98-107 MMOL/L Carbon Dioxide Level 18 L 18 L 21-32 MMOL/L Anion Gap 16 H 14 5-14 MMOL/L Blood Urea Nitrogen 16 17 7-18 MG/DL Creatinine 1.17 1.05 0.60-1.30 MG/DL Estimat Glomerular Filtration Rate > 60 > 60 BUN/Creatinine Ratio 14 16 Glucose Level 133 H 132 H 70-105 MG/DL Lactic Acid Level 1.89 0.50-2.00 MMOL/L Calcium Level 9.7 9.1 8.5-10.1 MG/DL Corrected Calcium 9.9 9.6 8.5-10.1 MG/DL Total Bilirubin 0.5 0.4 0.1-1.0 MG/DL Aspartate Amino Transf (AST/SGOT) 26 21 5-34 U/L Alanine Aminotransferase (ALT/SGPT) 20 17 0-55 U/L Alkaline Phosphatase 59 51 40-136 U/L Troponin I 0.040 H 0.150 H 0.125 H <0.028 NG/ML C-Reactive Protein High Sensitivity 19.59 H 0.00-0.50 MG/DL B-Type Natriuretic Peptide 75.7 <100.0 PG/ML Total Protein 7.6 6.8 6.4-8.2 GM/DL Albumin 3.7 3.4 3.2-4.5 GM/DL Phosphorus Level 2.1 L 2.3-4.7 MG/DL Magnesium Level 1.9 1.8-2.4 MG/DL Blood Gas Puncture Site R RAD Blood Gas Patient Temperature 96.3 Arterial Blood pH 7.35 L 7.37-7.43 Arterial Blood Partial Pressure CO2 33 L 35-45 MMHG Arterial Blood Partial Pressure O2 63 L 79-93 MMHG Arterial Blood HCO3 18 L 23-27 MMOL/L Arterial Blood Total CO2 19.3 L 21.0-31.0 MMOL/L Arterial Blood Oxygen Saturation 94 94-100 % Arterial Blood Base Excess -6.6 L -2.5-2.5 MMOL/L Julian Test YES-POS Blood Gas Ventilator Setting NO Blood Gas Inspired Oxygen 4L HIGH FLOW Radiology NAME: SELENA JARAMILLO [facility] REC#: [id number] PT STATUS: ADM IN : 1945 PHYSICIAN: ILIA PERRY MD ADMIT DATE: 09/09/18/ICU Signed Date of Exam: 09/10/18 CHEST 1 VIEW, AP/PA ONLY INDICATION: Sepsis, pneumonia, COPD. TECHNIQUE: Frontal view of the chest. COMPARISON: 09/09/2018 FINDINGS: Lung volumes are large. There are airspace and interstitial opacities in the lung bases. The cardiac silhouette is normal in size. No pneumothorax or pleural effusion is seen. IMPRESSION: 1. Stable bibasilar pulmonary opacities, which are age-indeterminate. These may represent chronic scarring versus acute infiltrate. Dictated by: Dictated on workstation # [id number] Dict: 09/10/18 0803 Trans: 09/10/18 1041 Interpreted by: JEAN MARIE WASHINGTON MD Electronically signed by: JEAN MARIE WASHINGTON MD 09/10/18 1041 Physical Exam-(CHC) Physical Exam Vital Signs VS - Last 72 Hours, by Label 09/09/18 09/09/18 09/09/18 09/09/18 19:47 19:47 20:37 20:52 Temp 98.3 98.3 Pulse 94 94 94 Resp 22 22 B/P (MAP) 143/76 (98) 123/92 Pulse Ox 96 94 94 O2 Delivery Non Rebreather Non Rebreather O2 Flow Rate 10.00 10.00 50.00 50.00 09/09/18 09/09/18 09/09/18 09/09/18 22:14 23:36 23:40 23:41 Temp 97.5 Pulse 91 109 95 Resp 24 B/P (MAP) 139/76 (97) Pulse Ox 96 94 O2 Delivery High Flow N/C O2 Flow Rate 50.00 7.00 50.00 09/09/18 09/09/18 09/10/18 09/10/18 23:42 23:46 00:00 01:00 Pulse 75 Pulse Ox 97 97 O2 Delivery High Flow N/C High Flow N/C High Flow N/C O2 Flow Rate 7.00 10.00 7.00 09/10/18 09/10/18 09/10/18 09/10/18 01:00 01:15 01:30 01:32 Pulse 75 74 69 Resp 24 21 20 B/P (MAP) 102/60 (74) 100/54 (69) 99/54 (69) Pulse Ox 97 97 O2 Delivery High Flow N/C High Flow N/C High Flow N/C High Flow N/C O2 Flow Rate 7.00 7.00 4.00 8.00 09/10/18 09/10/18 09/10/18 09/10/18 01:45 02:00 03:00 04:00 Pulse 75 78 67 75 Resp 23 22 16 32 B/P (MAP) 113/62 (79) 115/68 (84) 103/55 (71) 122/67 (85) Pulse Ox 95 94 95 93 O2 Delivery High Flow N/C High Flow N/C High Flow N/C High Flow N/C O2 Flow Rate 4.00 4.00 4.00 4.00 09/10/18 09/10/18 09/10/18 09/10/18 04:00 04:00 05:00 06:00 Temp 98.8 Pulse 58 51 Resp 19 23 B/P (MAP) 100/51 (67) 98/50 (66) Pulse Ox 95 94 95 O2 Delivery High Flow N/C High Flow N/C High Flow N/C O2 Flow Rate 4.00 4.00 4.00 09/10/18 09/10/18 09/10/18 09/10/18 06:30 07:00 07:00 08:00 Pulse 85 82 Resp 18 B/P (MAP) 111/68 (82) Pulse Ox 94 95 O2 Delivery High Flow N/C High Flow N/C High Flow N/C O2 Flow Rate 4.00 4.00 4.00 09/10/18 09/10/18 09/10/18 09/10/18 08:00 09:00 10:00 11:00 Pulse 75 50 75 63 Resp 27 20 21 27 B/P (MAP) 110/67 (81) 105/54 (71) 118/59 (78) 111/59 (76) Pulse Ox 96 O2 Delivery High Flow N/C High Flow N/C High Flow N/C High Flow N/C O2 Flow Rate 4.00 4.00 4.00 4.00 09/10/18 09/10/18 11:25 11:29 Temp 97.5 Pulse Ox 96 O2 Delivery High Flow N/C O2 Flow Rate 4.00 Capillary Refill : Less Than 3 Seconds General Appearance: WD/WN, no apparent distress Respiratory: wheezing Cardiovascular: regular rate, rhythm, no murmur Gastrointestinal: normal bowel sounds, non tender, soft, no organomegaly Neurologic/Psychiatric: alert, normal mood/affect, other (oriented to self and location but not date) Skin: normal color, warm/dry Assessment/Plan Assessment/Plan Admission Status: Inpatient Order (span 2 midnights) Reason for Inpatient Admission: Severe COPD exacerbation with marked increased work of breathing and hypoxia. (1) Respiratory failure Status: Acute Assessment & Plan: Requiring vapotherm on admission. Improved this am and on 4 lpm nasal cannula. Suspect secondary to COPD exacerbation, possible pneumonia. Dr. Odonnell consulted, appreciate recommendations. CTA chest pending. Qualifiers: Qualified Codes: J96.01 - Acute respiratory failure with hypoxia (2) Severe sepsis Status: Acute Assessment & Plan: Suspected secondary to pneumonia with respiratory failure and WBC elevated on admit. No elevation in lactic acid and no hypotension. CXR without clear evidence of pneumonia, started on cefepime from ER, will continue while blood cultures pending. (3) Pneumonia Status: Acute Assessment & Plan: Possible given leukocytosis and respiratory failure, however CXR not convincing. Continue cefepime for now, leukocytosis resolved. CT chest pending, blood cultures pending. Qualifiers: Qualified Codes: J18.1 - Lobar pneumonia, unspecified organism (4) Elevated troponin Status: Acute Assessment & Plan: Suspect related to hypoxia, Cardiology consulted, appreciate recommendations. (5) COPD exacerbation Status: Acute Assessment & Plan: IV solumedrol, duonebs. Dr. Odonnell consulted, appreciate recommendations. (6) DVT prophylaxis Status: Acute Assessment & Plan: Enoxaparin Clinical Quality Measures DVT/VTE Risk/Contraindication: Risk Factor Score Per Nursin RFS Level Per Nursing on Admit: 4+=Very High ILIA PERRY MD Sep 10, 2018 12:00
[2018-09-10] MEDS ORDERED: ENOXAPARIN 40 MG/0.4 ML (LOVENOX) SYR SC SCH (12:15)
[2018-09-10 13:48] LABS: BILIRUBIN,URINE NEGATIVE (NEGATIVE); CLARITY,URINE SLIGHTLY CLOUDY; COLOR,URINE YELLOW; GLUCOSE, URINE (UA) NEGATIVE (NEGATIVE); KETONES,URINE 3+ (NEGATIVE); LEUKOCYTE ESTERASE ,URINE NEGATIVE (NEGATIVE); NITRITE,URINE NEGATIVE (NEGATIVE); PH,URINE 5 (5-9); PROTEIN,URINE 2+ (NEGATIVE); UROBILINOGEN,URINE NORMAL (NORMAL)
[2018-09-10 14:17] LABS: RBC,URINE 50-100 /HPF
[2018-09-10 14:18] LABS: BACTERIA,URINE FEW /HPF; SQUAMOUS EPITHELIAL CELL,UR 0-2 /HPF; YEAST,URINE FEW /HPF
--- NOTE | 2018-09-10 14:29 | Diagnostic Imaging Report ---
PROCEDURE: CT angiography of the chest with contrast. TECHNIQUE: Multiple contiguous axial images were obtained through the chest after uneventful bolus administration of intravenous contrast. 2D reconstructed CTA MIP acquisitions were also performed. Auto Exposure Controls were utilized during the CT exam to meet ALARA standards for radiation dose reduction. INDICATION: Shortness of breath and history of prostate cancer. FINDINGS: There is a very small intraluminal filling defect in a subsegmental branch of the right lower lobe, compatible with pulmonary embolism. No other central or proximal filling defects are appreciated. There is diffuse emphysematous disease. There is interstitial scarring of the lung bases, right middle lobe, lingula, and upper lobes bilaterally, right greater than left. There is no pleural or pericardial fluid. There is no pneumothorax. Thoracic aorta is normal in caliber without evidence of dissection. There is no pathologically enlarged adenopathy in the chest. The visualized intra-abdominal structures are unremarkable. There are degenerative changes in the spine. IMPRESSION: 1. Small filling defect within the right lower lobe subsegmental branch, compatible with pulmonary embolism. No central or large proximal filling defects are appreciated. 2. Diffuse emphysematous disease and interstitial scarring, right greater than left. 3. Degenerative changes in the spine. Findings are conveyed directly to Dr. Odonnell at 2:15 p.m. Dictated by: Dictated on workstation # [id number]
--- NOTE | 2018-09-10 19:14 | Consultation-Cardiology ---
HPI-Cardiology Cardiology Consultation: Date of Consultation 09/10/18 Time Seen by a Provider: 18:15 Date of Admission Attending Physician Gayatri Gross MD Admitting Physician [place] Consulting Physician KAISER LEDESMA MD, MA, FACP, FACC, [facility], CCDS HPI: Chief Complaint: CC: Chest discomfort Mr. Li is a 73 year old male admitted to ICU 5 from the ED. He reports for the last week he has been having increasing SOB and chest tightness. He reports the tightness in his chest is not r/t activity or emotional stress. He states he has it several times a day, lasting for approx an hour and relieves on its own gradually. He denies any assoc symptoms. He denies any fever or chills. No c/o n/v/d. He reports he smokes cigs, approx 10 per day. He is currently not reporting any chest discomfort. He feels his SOB is better. No c /o LE swelling. [facility]. He is a poor historian. He has family x 1 at the bedside. Review of Systems-Cardiology Review of Systems Constitutional: No chills, No fever Eyes: No vision change Ears/Nose/Throat: No epistaxis, No recent hearing loss Respiratory: As described under HPI Cardiovascular: As described under HPI Gastrointestinal: No constipation, No diarrhea, No nausea, No vomiting Genitourinary: No dysuria, No hematuria Musculoskeletal: no symptoms reported Skin: No rash, No ulcerations Psychiatric/Neurological: No anxiety, No depression, No seizure, No focal weakness, No syncope Hematologic: No bleeding abnormalities MCG-Qzhnyj-Qkqjzl Hx Patient Social History Alcohol Use: Denies Use Recreational Drug Use: No Smoking Status: Current Everyday Smoker Type Used: Cigarettes Recent Foreign Travel: No Recent Infectious Disease Expo: No Hospitalization with Isolation: Denies Immunizations Up To Date Tetanus Booster (TDap): More than 5yrs Past Medical History PMH As described under Assessment. Family Medical History Family Medical History: He reports no known family h/o CAD or premature SCD. Allergies and Home Medications Allergies Coded Allergies: Penicillins (Verified Allergy, Unknown, 09/09/18) Home Medications Albuterol Sulfate 1 Puff Puff, 2 PUFF IH Q4H PRN for SHORTNESS OF BREATH, ( Reported) Aspirin 81 Mg Tablet.dr, 4-5 TAB PO DAILY, (Reported) Simvastatin 10 Mg Tablet, 5 MG PO HS, (Reported) TAKES 1/2 (10MG) TABLET Vit C/E/Zn/Coppr/Lutein/Zeaxan 1 Each Capsule, 1 CAP PO DAILY, (Reported) Patient Home Medication List Home Medication List Reviewed: Yes Physical Exam-Cardiology Physical Exam Vital Signs/I&O 09/10/18 09/10/18 09/10/18 09/10/18 08:00 08:00 09:00 10:00 Pulse 75 50 75 Resp 27 20 21 B/P (MAP) 110/67 (81) 105/54 (71) 118/59 (78) Pulse Ox 95 O2 Delivery High Flow N/C High Flow N/C High Flow N/C High Flow N/C O2 Flow Rate 4.00 4.00 4.00 4.00 09/10/18 09/10/18 09/10/18 09/10/18 11:00 11:25 11:29 12:00 Temp 97.5 Pulse 63 Resp 27 B/P (MAP) 111/59 (76) Pulse Ox 96 96 95 O2 Delivery High Flow N/C High Flow N/C High Flow N/C O2 Flow Rate 4.00 4.00 4.00 09/10/18 09/10/18 09/10/18 09/10/18 12:00 12:42 13:00 14:00 Pulse 78 81 70 78 Resp 29 21 23 B/P (MAP) 115/60 (78) 115/60 (78) 112/54 (73) Pulse Ox 94 95 O2 Delivery High Flow N/C High Flow N/C High Flow N/C O2 Flow Rate 4.00 4.00 4.00 09/10/18 09/10/18 09/10/18 09/10/18 15:00 15:11 15:35 15:50 Temp 98.2 Pulse 63 Resp 19 B/P (MAP) 110/54 (72) Pulse Ox 97 98 96 O2 Delivery High Flow N/C High Flow N/C High Flow N/C O2 Flow Rate 4.00 4.00 4.00 09/10/18 09/10/18 09/10/18 09/10/18 16:00 17:00 18:00 18:51 Pulse 93 71 67 Resp 28 22 25 B/P (MAP) 109/61 (77) 108/54 (72) 108/58 (75) Pulse Ox 93 O2 Delivery High Flow N/C High Flow N/C High Flow N/C Nasal Cannula O2 Flow Rate 4.00 4.00 4.00 4.00 09/10/18 00:00 Intake Total 1350 ml Balance 1350 ml Capillary Refill : Less Than 3 Seconds Constitutional: AAO x 3, other (thin) HEENT: PERRL, hearing is well preserved, oral hygience is good Neck: No carotid bruit; carotid pulses are 2 + bilaterally Respiratory: No accessory muscle use, No respiratory distress; chest expansion is symmetric, chest is bilaterally symmetric, other (prolonged exp phase; diminished based bilat) Cardiovascular: regular rate-rhythm; No JVD; S1 and S2 Gastrointestinal: No tender; soft, round, audible bowel sounds Rectal: deferred Extremities: no lower extremity edema bilateral Neurologic/Psychiatric: grossly intact, power is 5/5 both on sides Skin: No rash, No ulcerations Data Review Labs Laboratory Tests 09/10/18 02:00: White Blood Count 9.3, Red Blood Count 4.28L, Hemoglobin 12.8L, Hematocrit 38L, Mean Corpuscular Volume 89, Mean Corpuscular Hemoglobin 30, Mean Corpuscular Hemoglobin Concent 34, Red Cell Distribution Width 15.3H, Platelet Count 269, Mean Platelet Volume 9.3, Neutrophils (%) (Auto) 90H, Lymphocytes (%) (Auto) 9L , Monocytes (%) (Auto) 1, Eosinophils (%) (Auto) 0, Basophils (%) (Auto) 0, Neutrophils # (Auto) 8.3H, Lymphocytes # (Auto) 0.9L, Monocytes # (Auto) 0.1, Eosinophils # (Auto) 0.0, Basophils # (Auto) 0.0, Sodium Level 142, Potassium Level 4.3, Chloride Level 110H, Carbon Dioxide Level 18L, Anion Gap 14, Blood Urea Nitrogen 17, Creatinine 1.05, Estimat Glomerular Filtration Rate > 60, BUN/ Creatinine Ratio 16, Glucose Level 132H, Calcium Level 9.1, Corrected Calcium 9.6, Phosphorus Level 2.1L, Magnesium Level 1.9, Total Bilirubin 0.4, Aspartate Amino Transf (AST/SGOT) 21, Alanine Aminotransferase (ALT/SGPT) 17, Alkaline Phosphatase 51, Troponin I 0.150H, Total Protein 6.8, Albumin 3.4 09/10/18 06:25: Blood Gas Puncture Site R RAD, Blood Gas Patient Temperature 96.3, Arterial Blood pH 7.35L, Arterial Blood Partial Pressure CO2 33L, Arterial Blood Partial Pressure O2 63L, Arterial Blood HCO3 18L, Arterial Blood Total CO2 19.3L, Arterial Blood Oxygen Saturation 94, Arterial Blood Base Excess -6.6L, Julian Test YES-POS, Blood Gas Ventilator Setting NO, Blood Gas Inspired Oxygen 4L HIGH FLOW 09/10/18 06:31: Troponin I 0.125H 09/10/18 13:40: Urine Color YELLOW, Urine Clarity SLIGHTLY CLOUDY, Urine pH 5, Urine Specific [place] 1.025H, Urine Protein 2+H, Urine Glucose (UA) NEGATIVE, Urine Ketones 3+ H, Urine Nitrite NEGATIVE, Urine Bilirubin NEGATIVE, Urine Urobilinogen NORMAL, Urine Leukocyte Esterase NEGATIVE, Urine RBC (Auto) 5+H, Urine RBC 50-100H, Urine WBC 2-5, Urine Squamous Epithelial Cells 0-2, Urine Renal Epithelial Cells NONE, Urine Crystals NONE, Urine Bacteria FEWH, Urine Casts PRESENT, Urine Hyaline Casts 2-5H, Urine Mucus NEGATIVE, Urine Yeast FEWH, Urine Culture Indicated NO Microbiology 09/09/18 Blood Culture - Preliminary, Resulted No growth 09/09/18 Influenza Types A,B Antigen (LILY) - Final, Complete Laboratory Tests 09/09/18 17:52 09/10/18 02:00 A/P-Cardiology Assessment/Admission Diagnosis Elevated troponin, likely type 2 VT due to resp failure/sepsis Echo of : LVEF 60-65%, no regional wall motion abnormality, PASP within normal limits Pneumonia with sepsis - management per pulmonary services Acute exacerbation of COPD - management per pulmonary services Reported h/o CVA in 2005 - details unknown HLD - statin tx H/O "stomach cancer" approx 20 years ago - treated in [place] - details unknown Tobaccoism - cessation advised Discussion and Recomendations * Risk factor modification reviewed * Continue current regimen of aspirin and statin and anticoag * Monitor labs * I spoke with him and his son and answered CV-related questions Clinical Quality Measures DVT/VTE Risk/Contraindication: Risk Factor Score Per Nursin RFS Level Per Nursing on Admit: 4+=Very High KAISER LEDESMA MD FACP FACC CCDS Sep 10, 2018 19:14
[2018-09-10] MEDS: ENOXAPARIN 60 MG/0.6 ML (LOVENOX) SYR SC SCH (22:18)
[2018-09-10] MEDS: SIMvastatin 10 MG (ZOCOR) TAB PO SCH (22:18)
[2018-09-11] VITALS (13 sets, daily range): BP systolic 91–150; BP diastolic 50–74
[2018-09-11] MEDS: methylPREDNISolone 40 MG/ML (Solu-MEDROL) VIAL IV SCH ×4 (01:28→17:44)
[2018-09-11] MEDS: CEFEPIME INJECTION 1,000 MG in WATER (STERILE) FOR INJECTION 10 ML IV SCH ×4 (01:28→17:47)
[2018-09-11] MEDS: NS IV 1000 ML 1,000 ML IV SCH ×2 (02:06→06:04)
[2018-09-11] MEDS: RT-ALBUTEROL/IPRATROPIUM 3 ML (DUONEB) VIAL IH SCH ×6 (03:41→22:38)
[2018-09-11 04:04] LABS: BASOPHILS % (AUTO) 0 % (0-10); EOSINOPHILS % (AUTO) 0 % (0-10); HEMATOCRIT 37 % (40-54); LYMPHOCYTES # (AUTO) 1.4 X 10^3 (1.0-4.0); LYMPHOCYTES % (AUTO) 8 % (12-44); MEAN CORPUSCULAR HEMOGLOBIN 30 PG (25-34); MEAN CORPUSCULAR HGB CONC 33 G/DL (32-36); MEAN CORPUSCULAR VOLUME 90 FL (80-99); MEAN PLATELET VOLUME 9.6 FL (7.4-10.4); MONOCYTES % (AUTO) 6 % (0-12); NEUTROPHILS % (AUTO) 86 % (42-75); PLATELET COUNT 307 10^3/uL (130-400); RED CELL DISTRIBUTION WIDTH 15.4 % (10.0-14.5); WHITE BLOOD COUNT 17.4 10^3/uL (4.3-11.0)
[2018-09-11 04:20] LABS: ALANINE AMINOTRANSFERASE 18 U/L (0-55); ALBUMIN 3.1 GM/DL (3.2-4.5); ALKALINE PHOSPHATASE 48 U/L (40-136); BILIRUBIN,TOTAL 0.3 MG/DL (0.1-1.0); BUN/CREATININE RATIO 20; CALCIUM 8.4 MG/DL (8.5-10.1); CARBON DIOXIDE 14 MMOL/L (21-32); CHLORIDE 115 MMOL/L (98-107); GFR ESTIMATED > 60; GLUCOSE 138 MG/DL (70-105); MAGNESIUM 1.8 MG/DL (1.8-2.4); PHOSPHORUS 3.4 MG/DL (2.3-4.7); POTASSIUM 3.6 MMOL/L (3.6-5.0); SODIUM 143 MMOL/L (135-145); TOTAL PROTEIN 6.1 GM/DL (6.4-8.2)
--- NOTE | 2018-09-11 07:10 | Pulmonary Progress Note ---
Subjective Time Seen by a Provider: 07:24 Subjective/Events-last exam Pt doing better. Family at bedside. Sepsis Event Evaluation Height, Weight, BMI Height: 5'8.00" Weight: 131lbs. 5.0oz. 59.421489ud; 19.5 BMI Method:Stated Focused Exam Lactate Level 09/09/18 17:52: Lactic Acid Level 1.89 Time of Focused Exam: 22:02 Exam Exam Vital Signs Date Time Temp Pulse Resp B/P (MAP) Pulse Ox O2 Delivery O2 Flow Rate FiO2 09/11/18 04:00 59 20 108/69 (82) 94 High Flow N/C 4.00 09/11/18 04:00 97.7 09/11/18 04:00 97 High Flow N/C 4.00 09/11/18 03:44 94 Nasal Cannula 4.00 09/11/18 03:00 48 16 106/52 (70) 96 High Flow N/C 4.00 09/11/18 02:00 59 20 104/50 (68) High Flow N/C 4.00 09/11/18 01:00 80 09/11/18 01:00 80 26 91/53 (66) High Flow N/C 4.00 09/11/18 00:00 96 High Flow N/C 4.00 09/11/18 00:00 62 16 101/54 (70) High Flow N/C 4.00 09/11/18 00:00 98.8 09/10/18 23:07 81 23 90 High Flow N/C 4.00 09/10/18 23:00 81 29 101/51 (68) 88 High Flow N/C 2.00 09/10/18 22:41 96 Nasal Cannula 4.00 09/10/18 22:40 61 26 96 High Flow N/C 2.00 09/10/18 22:00 84 23 102/51 (68) 96 High Flow N/C 4.00 09/10/18 21:00 89 26 110/51 (70) 96 High Flow N/C 4.00 09/10/18 20:06 97.5 High Flow N/C 4.00 09/10/18 20:00 69 35 108/56 (73) 94 High Flow N/C 4.00 09/10/18 20:00 94 High Flow N/C 4.00 09/10/18 19:50 98.0 09/10/18 19:00 67 25 108/58 (75) High Flow N/C 4.00 09/10/18 19:00 61 09/10/18 18:51 93 Nasal Cannula 4.00 09/10/18 18:00 67 25 108/58 (75) High Flow N/C 4.00 09/10/18 17:00 71 22 108/54 (72) High Flow N/C 4.00 09/10/18 16:00 93 28 109/61 (77) High Flow N/C 4.00 09/10/18 15:50 98.2 09/10/18 15:35 96 High Flow N/C 4.00 09/10/18 15:11 98 High Flow N/C 4.00 09/10/18 15:00 63 19 110/54 (72) 97 High Flow N/C 4.00 09/10/18 14:00 78 23 112/54 (73) High Flow N/C 4.00 09/10/18 13:00 70 21 115/60 (78) 95 High Flow N/C 4.00 09/10/18 12:42 81 09/10/18 12:00 78 29 115/60 (78) 94 High Flow N/C 4.00 09/10/18 12:00 95 High Flow N/C 4.00 09/10/18 11:29 97.5 09/10/18 11:25 96 High Flow N/C 4.00 09/10/18 11:00 63 27 111/59 (76) 96 High Flow N/C 4.00 09/10/18 10:00 75 21 118/59 (78) High Flow N/C 4.00 09/10/18 09:00 50 20 105/54 (71) High Flow N/C 4.00 09/10/18 08:00 75 27 110/67 (81) High Flow N/C 4.00 09/10/18 08:00 95 High Flow N/C 4.00 I & O 09/11/18 07:00 Intake Total 3910 ml Output Total 700 ml Balance 3210 ml Height & Weight Height: 5'8.00" Weight: 131lbs. 5.0oz. 59.842879od; 19.5 BMI Method:Stated General Appearance: WD/WN, Chronically ill, Thin HEENT: PERRL/EOMI, Normal ENT Inspection Neck: Normal Inspection Respiratory: Rhonci, Wheezing Cardiovascular: Regular Rate, Rhythm, No Edema, No Murmur Capillary Refill: Less Than 3 Seconds Peripheral Pulses: 2+ Radial Pulses (L) Gastrointestinal: normal bowel sounds, non tender, soft, no organomegaly Extremity: Normal Inspection, Non Tender, No Pedal Edema Neurologic/Psychiatric: Alert, Oriented x3, No Motor/Sensory Deficits, Normal Mood/Affect, metal melter II-XII Norm as Tested Skin: Normal Color, Warm/Dry Lymphatic: No Adenopathy Results Lab Laboratory Tests 09/09/18 17:52 09/10/18 02:00 09/11/18 03:35 Assessment/Plan Assessment/Plan Acute on chronic respiratory failure -Vent to mask COPDAE with hypoxia -Check ABG -Check CTA r/o PE -Solumedrol 40 IV Q 6 -SVNS with duonebQ4 -Start Advair Pneumonia with severe sepsis - Cefepime Metabolic acidosis secondary to dehydration (ketones) --decrease IVF to 50cc/hr NSTEMI - probably secondary to hypoxia -repeat troponin -Cardiology consulted -Pt denies CP After discussion with patient (family at bedside) he is a DNR no intubation, no chest compressions, no shocking. ELINA ALVAREZ DO September 11, 2018 07:10
[2018-09-11] MEDS ORDERED: LACTATED RINGERS 1,000 ML IV SCH (07:30)
--- NOTE | 2018-09-11 07:59 | Diagnostic Imaging Report ---
INDICATION: Sepsis and pneumonia. Comparison made with prior examination 09/10/2018. FINDINGS: Heart size is normal. Bibasilar atelectasis and pneumonitis. There is some venous congestion. There is no pneumothorax. Mediastinum is unremarkable. IMPRESSION: Bibasilar atelectasis and pneumonitis. There is some mild central pulmonary venous congestion. Dictated by: Dictated on workstation # [id number]
[2018-09-11] MEDS: ENOXAPARIN 60 MG/0.6 ML (LOVENOX) SYR SC SCH ×2 (08:03→19:58)
[2018-09-11] MEDS: ASPIRIN 81 MG CHEW (CHILDREN'S ASA) PO SCH (08:03)
--- NOTE | 2018-09-11 09:17 | Progress Note-Cardiology ---
Cardiology SOAP Progress Note Subjective: Sitting up in bed. States he feels his breathing is better today. No c/o CP or palpitations. Occ cough. Objective: I&O/Vital Signs 09/10/18 09/10/18 09/10/18 09/10/18 22:00 22:40 22:41 23:00 Pulse 84 61 81 Resp 23 26 29 B/P (MAP) 102/51 (68) 101/51 (68) Pulse Ox 96 96 96 88 O2 Delivery High Flow N/C High Flow N/C Nasal Cannula High Flow N/C O2 Flow Rate 4.00 2.00 4.00 2.00 09/10/18 09/11/18 09/11/18 09/11/18 23:07 00:00 00:00 00:00 Temp 98.8 Pulse 81 62 Resp 23 16 B/P (MAP) 101/54 (70) Pulse Ox 90 96 O2 Delivery High Flow N/C High Flow N/C High Flow N/C O2 Flow Rate 4.00 4.00 4.00 09/11/18 09/11/18 09/11/18 09/11/18 01:00 01:00 02:00 03:00 Pulse 80 80 59 48 Resp 26 20 16 B/P (MAP) 91/53 (66) 104/50 (68) 106/52 (70) Pulse Ox 96 O2 Delivery High Flow N/C High Flow N/C High Flow N/C O2 Flow Rate 4.00 4.00 4.00 09/11/18 09/11/18 09/11/18 09/11/18 03:44 04:00 04:00 04:00 Temp 97.7 Pulse 59 Resp 20 B/P (MAP) 108/69 (82) Pulse Ox 94 97 94 O2 Delivery Nasal Cannula High Flow N/C High Flow N/C O2 Flow Rate 4.00 4.00 4.00 09/11/18 09/11/18 09/11/18 09/11/18 07:00 07:10 08:00 08:00 Pulse 75 84 79 Resp 24 23 B/P (MAP) 109/68 (82) 126/65 (85) Pulse Ox 91 90 O2 Delivery High Flow N/C High Flow N/C High Flow N/C O2 Flow Rate 4.00 5.00 4.00 09/11/18 09/11/18 08:37 09:00 Pulse 77 Resp 25 B/P (MAP) 109/68 (82) O2 Delivery High Flow N/C High Flow N/C O2 Flow Rate 5.00 5.00 09/11/18 00:00 Intake Total 2760 ml Output Total 500 ml Balance 2260 ml Weight (Pounds): 131 Weight (Ounces): 5.0 Weight (Calculated Kilograms): 59.714072 Constitutional: AAO x 3, other (thin) Respiratory: No accessory muscle use, No respiratory distress; chest expansion is symmetric, chest is bilaterally symmetric, rhonchi (scattered) Cardiovascular: regular rate-rhythm; No JVD; S1 and S2 Gastrointestional: No tender; soft, round, audible bowel sounds Extremities: no lower extremity edema bilateral Neurologic/Psychiatric: grossly intact, power is 5/5 both on sides Skin: No rash, No ulcerations Results/Procedures: Labs Laboratory Tests 09/10/18 13:40: Urine Color YELLOW, Urine Clarity SLIGHTLY CLOUDY, Urine pH 5, Urine Specific [place] 1.025H, Urine Protein 2+H, Urine Glucose (UA) NEGATIVE, Urine Ketones 3+ H, Urine Nitrite NEGATIVE, Urine Bilirubin NEGATIVE, Urine Urobilinogen NORMAL, Urine Leukocyte Esterase NEGATIVE, Urine RBC (Auto) 5+H, Urine RBC 50-100H, Urine WBC 2-5, Urine Squamous Epithelial Cells 0-2, Urine Renal Epithelial Cells NONE, Urine Crystals NONE, Urine Bacteria FEWH, Urine Casts PRESENT, Urine Hyaline Casts 2-5H, Urine Mucus NEGATIVE, Urine Yeast FEWH, Urine Culture Indicated NO 09/11/18 03:35: White Blood Count 17.4H, Red Blood Count 4.05L, Hemoglobin 12.0L, Hematocrit 37L , Mean Corpuscular Volume 90, Mean Corpuscular Hemoglobin 30, Mean Corpuscular Hemoglobin Concent 33, Red Cell Distribution Width 15.4H, Platelet Count 307, Mean Platelet Volume 9.6, Neutrophils (%) (Auto) 86H, Lymphocytes (%) (Auto) 8L , Monocytes (%) (Auto) 6, Eosinophils (%) (Auto) 0, Basophils (%) (Auto) 0, Neutrophils # (Auto) 15.0H, Lymphocytes # (Auto) 1.4, Monocytes # (Auto) 1.0, Eosinophils # (Auto) 0.0, Basophils # (Auto) 0.0, Sodium Level 143, Potassium Level 3.6, Chloride Level 115H, Carbon Dioxide Level 14L, Anion Gap 14, Blood Urea Nitrogen 20H, Creatinine 1.00, Estimat Glomerular Filtration Rate > 60, BUN /Creatinine Ratio 20, Glucose Level 138H, Calcium Level 8.4L, Corrected Calcium 9.1, Phosphorus Level 3.4, Magnesium Level 1.8, Total Bilirubin 0.3, Aspartate Amino Transf (AST/SGOT) 31, Alanine Aminotransferase (ALT/SGPT) 18, Alkaline Phosphatase 48, Total Protein 6.1L, Albumin 3.1L Microbiology 09/09/18 Blood Culture - Preliminary, Resulted No growth 09/09/18 Influenza Types A,B Antigen (LILY) - Final, Complete Procedures NAME: SELENA JARAMILLO [facility] REC#: [id number] PT STATUS: ADM IN : 1945 PHYSICIAN: ELINA ALVAREZ DO ADMIT DATE: 09/09/18/ICU Signed Date of Exam: 09/11/18 CHEST 1 VIEW, AP/PA ONLY INDICATION: Sepsis and pneumonia. Comparison made with prior examination 09/10/2018. FINDINGS: Heart size is normal. Bibasilar atelectasis and pneumonitis. There is some venous congestion. There is no pneumothorax. Mediastinum is unremarkable. IMPRESSION: Bibasilar atelectasis and pneumonitis. There is some mild central pulmonary venous congestion. Dictated by: Dictated on workstation # [id number] Dict: 09/11/18 0754 Trans: 09/11/18 0849 Interpreted by: AYALA JOE MD Electronically signed by: AYALA JOE MD 09/11/18 0849 A/P: Assessment: Elevated troponin, likely type 2 MS due to resp failure/sepsis Echo of : LVEF 60-65%, no regional wall motion abnormality, PASP within normal limits Pneumonia with sepsis - management per pulmonary services Acute exacerbation of COPD - management per pulmonary services Reported h/o CVA in 2006 - details unknown HLD - statin tx H/O "stomach cancer" approx 20 years ago - treated in [place] - details unknown Tobaccoism - cessation advised Plan: * Risk factor modification reviewed * Continue current regimen of aspirin and statin and anticoag * DC IVF * Monitor labs * Plan is to transfer to [address] [place] [address] Physician Assessment Physician Assessment No new symptoms. Gen malaise. Some shortness of breath. No palp or cp or syncope Cor: reg Lung: dec bs at bases Ext: no c/c/e A&R * As documented in our note above that I updated (italics) and as noted below * Reduce iv fluids * I spoke with him and his son and answered CV-related questions RAISA MONTERO [employer]AG LO[employer]ER September 11, 2018 09:17 KAISER LEDESMA MD FACP FACC CCDS September 11, 2018 09:48
--- NOTE | 2018-09-11 10:00 | NUR ---
Report given to VALERIE Mae on 4h floor
[2018-09-11] MEDS ORDERED: CEFEPIME 1 GM (MAXIPIME) VIAL ONE ×3 (12:01→23:54)
[2018-09-11] MEDS ORDERED: WATER (STERILE) FOR INJECTION 10 ML ONE ×3 (12:01→23:54)
--- NOTE | 2018-09-11 16:19 | Progress Note (SOAP) ---
Subjective Subjective/Events-last exam Afebrile, no acute events. Feeling better today. Review of Systems Date Seen by Provider: September 11, 2018 Time Seen by Provider: 10:05 Focused Exam Lactate Level 09/09/18 19:52: Lactic Acid Level 1.89 Time of Focused Exam: 22:02 Objective Exam Last Set of Vital Signs Vital Signs Date Time Temp Pulse Resp B/P (MAP) Pulse Ox O2 Delivery O2 Flow Rate FiO2 09/11/18 14:30 90 Nasal Cannula 4.00 09/11/18 12:00 98.5 87 24 117/67 (84) Capillary Refill : Less Than 3 Seconds I&O Intake and Output 09/11/18 00:00 Intake Total 4920 ml Output Total 750 ml Balance 4170 ml Intake Oral 650 ml IV Total 4270 ml Output Urine Total 750 ml Daily Weight Change No General: Alert, No Acute Distress Lungs: Other (wheezing) Heart: Regular Rate, No Murmurs Abdomen: Normal Bowel Sounds, Soft, No Tenderness Neuro: Normal Speech Psych/Mental Status: Mood NL Results/Procedures Lab Laboratory Tests 09/11/18 03:35: White Blood Count 17.4H, Red Blood Count 4.05L, Hemoglobin 12.0L, Hematocrit 37L , Mean Corpuscular Volume 90, Mean Corpuscular Hemoglobin 30, Mean Corpuscular Hemoglobin Concent 33, Red Cell Distribution Width 15.4H, Platelet Count 307, Mean Platelet Volume 9.6, Neutrophils (%) (Auto) 86H, Lymphocytes (%) (Auto) 8L , Monocytes (%) (Auto) 6, Eosinophils (%) (Auto) 0, Basophils (%) (Auto) 0, Neutrophils # (Auto) 15.0H, Lymphocytes # (Auto) 1.4, Monocytes # (Auto) 1.0, Eosinophils # (Auto) 0.0, Basophils # (Auto) 0.0, Sodium Level 143, Potassium Level 3.6, Chloride Level 115H, Carbon Dioxide Level 14L, Anion Gap 14, Blood Urea Nitrogen 20H, Creatinine 1.00, Estimat Glomerular Filtration Rate > 60, BUN /Creatinine Ratio 20, Glucose Level 138H, Calcium Level 8.4L, Corrected Calcium 9.1, Phosphorus Level 3.4, Magnesium Level 1.8, Total Bilirubin 0.3, Aspartate Amino Transf (AST/SGOT) 31, Alanine Aminotransferase (ALT/SGPT) 18, Alkaline Phosphatase 48, Total Protein 6.1L, Albumin 3.1L Microbiology 09/09/18 Blood Culture - Preliminary, Resulted No growth 09/09/18 MRSA Screen - Final, Complete MRSA not isolated Radiology NAME: SELENA JARAMILLO [facility] REC#: [id number] PT STATUS: ADM IN : 1945 PHYSICIAN: ILIA PERRY MD ADMIT DATE: 09/09/18/ICU Signed Date of Exam: 09/10/18 CHEST 1 VIEW, AP/PA ONLY INDICATION: Sepsis, pneumonia, COPD. TECHNIQUE: Frontal view of the chest. COMPARISON: 09/09/2018 FINDINGS: Lung volumes are large. There are airspace and interstitial opacities in the lung bases. The cardiac silhouette is normal in size. No pneumothorax or pleural effusion is seen. IMPRESSION: 1. Stable bibasilar pulmonary opacities, which are age-indeterminate. These may represent chronic scarring versus acute infiltrate. Dictated by: Dictated on workstation # [id number] Dict: 09/10/18 0803 Trans: 09/10/18 1041 Interpreted by: JEAN MARIE WASHINGTON MD Electronically signed by: JEAN MARIE WASHINGTON MD 09/10/18 1041 Assessment/Plan Assessment/Plan (1) Respiratory failure Status: Acute Assessment & Plan: Requiring vapotherm on admission. Improved this am and on 4 lpm nasal cannula. Suspect secondary to COPD exacerbation, possible pneumonia. Dr. Odonnell consulted, appreciate recommendations. CTA chest pending. 09/11 CTA chest with PE, see below. Qualifiers: Qualified Codes: J96.01 - Acute respiratory failure with hypoxia (2) Severe sepsis Status: Resolved Assessment & Plan: Suspected secondary to pneumonia with respiratory failure and WBC elevated on admit. No elevation in lactic acid and no hypotension. CXR without clear evidence of pneumonia, started on cefepime from ER, will continue while blood cultures pending. (3) Pneumonia Status: Acute Assessment & Plan: Possible given leukocytosis and respiratory failure, however CXR not convincing. Continue cefepime for now, leukocytosis resolved. CT chest pending, blood cultures pending. 09/11 blood cx no significant growth to date, may consider d/c abx tomorrow Qualifiers: Qualified Codes: J18.1 - Lobar pneumonia, unspecified organism (4) Elevated troponin Status: Acute Assessment & Plan: Suspect related to hypoxia, Cardiology consulted, appreciate recommendations. (5) COPD exacerbation Status: Acute Assessment & Plan: IV solumedrol, duonebs. Dr. Odonnell consulted, appreciate recommendations. (6) Pulmonary embolism Status: Acute Assessment & Plan: Started on enoxaparin therapeutic dosing per Dr. Odonnell. Qualifiers: (7) DVT prophylaxis Status: Acute Assessment & Plan: Enoxaparin Clinical Quality Measures DVT/VTE Risk/Contraindication: Risk Factor Score Per Nursin RFS Level Per Nursing on Admit: 4+=Very High ILIA PERRY MD September 11, 2018 16:19
[2018-09-11] MEDS: SIMvastatin 10 MG (ZOCOR) TAB PO SCH (19:58)
--- NOTE | 2018-09-11 20:25 | NUR ---
THIS RN WALKED INTO PT ROOM TO ASSESS PATIENT. PT APPEARED SLIGHTLY SHORT OF BREATH WITH AUDIBLE COARSE BREATH SOUNDS, PT OXYGEN SATURATION AT 93% ON 4L HIGH FLOW NC. PT REPORTS FEELING SLIGHTLY SHORT OF BREATH. THIS RN CALLED RT TO ASSESS PT. THIS RN CALLED DR. PERRY. ORDERS RECEIVED TO PLACE PATIENT ON VAPOTHERM.
[2018-09-11] MEDS ORDERED: FUROSEMIDE 40 MG/4 ML INJ (LASIX) IVP ONE (20:45)
[2018-09-12] MEDS: methylPREDNISolone 40 MG/ML (Solu-MEDROL) VIAL IV SCH ×4 (00:04→17:05)
[2018-09-12] MEDS: CEFEPIME INJECTION 1,000 MG in WATER (STERILE) FOR INJECTION 10 ML IV SCH ×4 (00:04→17:05)
[2018-09-12 00:22] VITALS: BP 111/67
[2018-09-12] MEDS: RT-ALBUTEROL/IPRATROPIUM 3 ML (DUONEB) VIAL IH SCH ×4 (02:42→18:54)
[2018-09-12 04:30] LABS: BASOPHILS % (AUTO) 0 % (0-10); EOSINOPHILS % (AUTO) 0 % (0-10); HEMATOCRIT 37 % (40-54); HEMOGLOBIN 12.3 G/DL (13.3-17.7); LYMPHOCYTES # (AUTO) 0.9 X 10^3 (1.0-4.0); LYMPHOCYTES % (AUTO) 5 % (12-44); MEAN CORPUSCULAR HEMOGLOBIN 29 PG (25-34); MEAN CORPUSCULAR HGB CONC 33 G/DL (32-36); MEAN CORPUSCULAR VOLUME 88 FL (80-99); MEAN PLATELET VOLUME 9.3 FL (7.4-10.4); MONOCYTES # (AUTO) 0.6 X 10^3 (0.0-1.0); MONOCYTES % (AUTO) 4 % (0-12); NEUTROPHILS # (AUTO) 15.4 X 10^3 (1.8-7.8); NEUTROPHILS % (AUTO) 91 % (42-75); PLATELET COUNT 402 10^3/uL (130-400); RED CELL DISTRIBUTION WIDTH 15.3 % (10.0-14.5); WHITE BLOOD COUNT 16.9 10^3/uL (4.3-11.0)
[2018-09-12 04:48] LABS: ALANINE AMINOTRANSFERASE 29 U/L (0-55); ALBUMIN 3.1 GM/DL (3.2-4.5); ALKALINE PHOSPHATASE 55 U/L (40-136); BILIRUBIN,TOTAL 0.4 MG/DL (0.1-1.0); BUN/CREATININE RATIO 24; CALCIUM 8.8 MG/DL (8.5-10.1); CARBON DIOXIDE 17 MMOL/L (21-32); CHLORIDE 113 MMOL/L (98-107); CREATININE SERUM 1.05 MG/DL (0.60-1.30); GFR ESTIMATED > 60; GLUCOSE 149 MG/DL (70-105); POTASSIUM 3.4 MMOL/L (3.6-5.0); SODIUM 143 MMOL/L (135-145)
[2018-09-12 05:07] VITALS: BP 129/73
[2018-09-12] MEDS ORDERED: WATER (STERILE) FOR INJECTION 10 ML ONE ×2 (05:58→10:18)
[2018-09-12] MEDS ORDERED: CEFEPIME 1 GM (MAXIPIME) VIAL ONE ×2 (05:58→10:18)
[2018-09-12 08:00] VITALS: BP 127/62
[2018-09-12] MEDS: ASPIRIN 81 MG CHEW (CHILDREN'S ASA) PO SCH (08:33)
[2018-09-12] MEDS: ENOXAPARIN 60 MG/0.6 ML (LOVENOX) SYR SC SCH ×2 (08:33→20:28)
--- NOTE | 2018-09-12 09:44 | Progress Note-Cardiology ---
Cardiology SOAP Progress Note Subjective: Reports became more SOB last night, but feels better this morning. No c/o CP or palpitations. Objective: I&O/Vital Signs 09/12/18 09/12/18 09/12/18 09/12/18 08:00 08:00 10:20 12:00 Temp 97.7 97.8 Pulse 78 88 Resp 20 18 B/P (MAP) 127/62 (83) 131/75 (93) Pulse Ox 95 95 91 94 O2 Delivery Vapotherm Vapotherm Vapotherm Vapotherm O2 Flow Rate 20.00 50.00 20.00 40.00 40.00 15.00 FiO2 40 40 09/12/18 16:00 Temp 98.2 Pulse 87 Resp 18 B/P (MAP) 140/63 (88) Pulse Ox 92 O2 Delivery Vapotherm O2 Flow Rate 40.00 15.00 09/12/18 00:00 Intake Total 1677 ml Output Total 550 ml Balance 1127 ml Weight (Pounds): 131 Weight (Ounces): 5.0 Weight (Calculated Kilograms): 59.067734 Constitutional: AAO x 3, other (thin) Respiratory: No accessory muscle use, No respiratory distress; chest expansion is symmetric, chest is bilaterally symmetric, crackles (lower lobes), rhonchi ( scattered) Cardiovascular: regular rate-rhythm; No JVD; S1 and S2 Gastrointestional: No tender; soft, round, audible bowel sounds Extremities: no lower extremity edema bilateral Neurologic/Psychiatric: grossly intact, power is 5/5 both on sides Skin: No rash, No ulcerations Results/Procedures: Labs Laboratory Tests 09/12/18 03:45: White Blood Count 16.9H, Red Blood Count 4.20L, Hemoglobin 12.3L, Hematocrit 37L , Mean Corpuscular Volume 88, Mean Corpuscular Hemoglobin 29, Mean Corpuscular Hemoglobin Concent 33, Red Cell Distribution Width 15.3H, Platelet Count 402H, Mean Platelet Volume 9.3, Neutrophils (%) (Auto) 91H, Lymphocytes (%) (Auto) 5L , Monocytes (%) (Auto) 4, Eosinophils (%) (Auto) 0, Basophils (%) (Auto) 0, Neutrophils # (Auto) 15.4H, Lymphocytes # (Auto) 0.9L, Monocytes # (Auto) 0.6, Eosinophils # (Auto) 0.0, Basophils # (Auto) 0.0, Sodium Level 143, Potassium Level 3.4L, Chloride Level 113H, Carbon Dioxide Level 17L, Anion Gap 13, Blood Urea Nitrogen 25H, Creatinine 1.05, Estimat Glomerular Filtration Rate > 60, BUN /Creatinine Ratio 24, Glucose Level 149H, Calcium Level 8.8, Corrected Calcium 9.5, Total Bilirubin 0.4, Aspartate Amino Transf (AST/SGOT) 36H, Alanine Aminotransferase (ALT/SGPT) 29, Alkaline Phosphatase 55, Total Protein 6.0L, Albumin 3.1L Microbiology 09/09/18 Blood Culture - Preliminary, Resulted No growth 09/09/18 MRSA Screen - Final, Complete MRSA not isolated A/P: Assessment: Elevated troponin, likely type 2 [place] due to resp failure/sepsis Echo of : LVEF 60-65%, no regional wall motion abnormality, PASP within normal limits Pneumonia with sepsis - management per pulmonary services Acute exacerbation of COPD - management per pulmonary services Reported h/o CVA in 2005 - details unknown HLD - statin tx H/O "stomach cancer" approx 20 years ago - treated in [place] - details unknown Tobaccoism - cessation advised Plan: * Risk factor modification reviewed * Continue current regimen of aspirin and statin * Monitor labs * Increasing dyspnea over night - IV Lasix given and placed on Vapo-therm - improved * Replace potassium Physician Assessment Physician Assessment Some gen weakness and malaise, but no cp or palp or syncope. Shortness of breath better this evening Lungs: dec bs at bases Cor: reg Ext: no c/c/e A&R * As documented in our note above that I updated (italics) and as noted below * Continue current regimen * Monitor labs RAISA MONTERO [facility] September 12, 2018 09:44 KAISER LEDESMA MD [facility] CCDS September 12, 2018 18:32
[2018-09-12] MEDS ORDERED: KCL 20 MEQ TAB (K-DUR) PO NR (10:00)
[2018-09-12 12:00] VITALS: BP 131/75
--- NOTE | 2018-09-12 13:29 | Pulmonary Progress Note ---
Subjective Time Seen by a Provider: 14:13 Subjective/Events-last exam Pt still complains of SOB. Sepsis Event Evaluation Height, Weight, BMI Height: 5'8.00" Weight: 131lbs. 5.0oz. 59.151369bs; 19.5 BMI Method:Stated Focused Exam Lactate Level 09/09/18 19:52: Lactic Acid Level 1.89 Time of Focused Exam: 22:02 Exam Exam Vital Signs Date Time Temp Pulse Resp B/P (MAP) Pulse Ox O2 Delivery O2 Flow Rate FiO2 09/12/18 12:00 97.8 88 18 131/75 (93) 94 Vapotherm 40.00 15.00 09/12/18 10:20 91 Vapotherm 20.00 40 09/12/18 08:00 97.7 78 20 127/62 (83) 95 Vapotherm 50.00 40.00 09/12/18 08:00 95 Vapotherm 20.00 40 09/12/18 06:30 96 Vapotherm 30.00 50 09/12/18 05:07 98.6 83 25 129/73 (91) 94 Vapotherm 50.00 40.00 09/12/18 02:42 96 Vapotherm 30.00 50 09/12/18 00:22 97.9 78 23 111/67 (82) 96 High Flow N/C 5.00 09/11/18 22:38 93 Vapotherm 35.00 55 09/11/18 20:45 96 Vapotherm 50.00 40.00 09/11/18 20:45 96 Vapotherm 40.00 50 09/11/18 20:10 98.4 105 26 150/71 (97) 90 High Flow N/C 6.00 09/11/18 20:00 93 High Flow N/C 4.00 09/11/18 18:51 90 Nasal Cannula 4.00 09/11/18 16:00 98.1 94 22 117/69 (85) 96 High Flow N/C 5.00 09/11/18 14:30 90 Nasal Cannula 4.00 I & O 09/12/18 07:00 Intake Total 2377 ml Output Total 1750 ml Balance 627 ml Height & Weight Height: 5'8.00" Weight: 131lbs. 5.0oz. 59.856691tr; 19.5 BMI Method:Stated General Appearance: WD/WN, Chronically ill, Thin HEENT: PERRL/EOMI, Normal ENT Inspection Neck: Normal Inspection Respiratory: Rhonci, Wheezing Cardiovascular: Regular Rate, Rhythm, No Edema, No Murmur Capillary Refill: Less Than 3 Seconds Peripheral Pulses: 2+ Radial Pulses (L) Gastrointestinal: normal bowel sounds, non tender, soft, no organomegaly Extremity: Normal Inspection, Non Tender, No Pedal Edema Neurologic/Psychiatric: Alert, Oriented x3, No Motor/Sensory Deficits, Normal Mood/Affect, chief physical therapist II-XII Norm as Tested Skin: Normal Color, Warm/Dry Lymphatic: No Adenopathy Results Lab Laboratory Tests 09/11/18 03:35 09/12/18 03:45 Assessment/Plan Assessment/Plan Acute on chronic respiratory failure -Vent to mask COPDAE with hypoxia -Check ABG -Check CTA r/o PE -Solumedrol 40 IV Q 6 -SVNS with duonebQ4 -Start Advair Pneumonia with severe sepsis - Cefepime Metabolic acidosis secondary to dehydration (ketones) --decrease IVF to 50cc/hr NSTEMI - probably secondary to hypoxia -repeat troponin -Cardiology consulted -Pt ELINA Jones CP, DO September 12, 2018 13:29
--- NOTE | 2018-09-12 14:02 | Progress Note (SOAP) ---
Subjective Subjective/Events-last exam Afebrile, but yesterday evening had observed increased work of breathing and was placed back on vapotherm. He denies feeling more short of breath and is anxious to go home. Review of Systems Date Seen by Provider: September 12, 2018 Time Seen by Provider: 10:40 Focused Exam Lactate Level 09/09/18 19:52: Lactic Acid Level 1.89 Time of Focused Exam: 22:02 Objective Exam Last Set of Vital Signs Vital Signs Date Time Temp Pulse Resp B/P (MAP) Pulse Ox O2 Delivery O2 Flow Rate FiO2 09/12/18 12:00 97.8 88 18 131/75 (93) 94 Vapotherm 40.00 15.00 09/12/18 10:20 40 Capillary Refill : Less Than 3 Seconds I&O Intake and Output 09/12/18 00:00 Intake Total 2877 ml Output Total 750 ml Balance 2127 ml Intake Oral 1077 ml IV Total 1800 ml Output Urine Total 750 ml General: Alert, No Acute Distress Lungs: Other (wheezes and ronchi throughout) Heart: Regular Rate, No Murmurs Neuro: Normal Speech Psych/Mental Status: Mental Status NL Results/Procedures Lab Laboratory Tests 09/12/18 03:45: White Blood Count 16.9H, Red Blood Count 4.20L, Hemoglobin 12.3L, Hematocrit 37L , Mean Corpuscular Volume 88, Mean Corpuscular Hemoglobin 29, Mean Corpuscular Hemoglobin Concent 33, Red Cell Distribution Width 15.3H, Platelet Count 402H, Mean Platelet Volume 9.3, Neutrophils (%) (Auto) 91H, Lymphocytes (%) (Auto) 5L , Monocytes (%) (Auto) 4, Eosinophils (%) (Auto) 0, Basophils (%) (Auto) 0, Neutrophils # (Auto) 15.4H, Lymphocytes # (Auto) 0.9L, Monocytes # (Auto) 0.6, Eosinophils # (Auto) 0.0, Basophils # (Auto) 0.0, Sodium Level 143, Potassium Level 3.4L, Chloride Level 113H, Carbon Dioxide Level 17L, Anion Gap 13, Blood Urea Nitrogen 25H, Creatinine 1.05, Estimat Glomerular Filtration Rate > 60, BUN /Creatinine Ratio 24, Glucose Level 149H, Calcium Level 8.8, Corrected Calcium 9.5, Total Bilirubin 0.4, Aspartate Amino Transf (AST/SGOT) 36H, Alanine Aminotransferase (ALT/SGPT) 29, Alkaline Phosphatase 55, Total Protein 6.0L, Albumin 3.1L Microbiology 09/09/18 Blood Culture - Preliminary, Resulted No growth 09/09/18 MRSA Screen - Final, Complete MRSA not isolated Radiology NAME: SELENA JARAMILLO [facility] REC#: [id number] PT STATUS: ADM IN : 1945 PHYSICIAN: ILIA PERRY MD ADMIT DATE: 09/09/18/ICU Signed Date of Exam: 09/10/18 CHEST 1 VIEW, AP/PA ONLY INDICATION: Sepsis, pneumonia, COPD. TECHNIQUE: Frontal view of the chest. COMPARISON: 09/09/2018 FINDINGS: Lung volumes are large. There are airspace and interstitial opacities in the lung bases. The cardiac silhouette is normal in size. No pneumothorax or pleural effusion is seen. IMPRESSION: 1. Stable bibasilar pulmonary opacities, which are age-indeterminate. These may represent chronic scarring versus acute infiltrate. Dictated by: Dictated on workstation # [id number] Dict: 09/10/18 0803 Trans: 09/10/18 1041 Interpreted by: JEAN MARIE WASHINGTON MD Electronically signed by: JEAN MARIE WASHINGTON MD 09/10/18 1041 Assessment/Plan Assessment/Plan (1) Respiratory failure Status: Acute Assessment & Plan: Requiring vapotherm on admission. Improved this am and on 4 lpm nasal cannula. Suspect secondary to COPD exacerbation, possible pneumonia. Dr. Odonnell consulted, appreciate recommendations. CTA chest pending. 09/11 CTA chest with PE, see below. Qualifiers: Qualified Codes: J96.01 - Acute respiratory failure with hypoxia (2) Severe sepsis Status: Resolved Assessment & Plan: Suspected secondary to pneumonia with respiratory failure and WBC elevated on admit. No elevation in lactic acid and no hypotension. CXR without clear evidence of pneumonia, started on cefepime from ER, will continue while blood cultures pending. (3) Pneumonia Status: Acute Assessment & Plan: Possible given leukocytosis and respiratory failure, however CXR not convincing. Continue cefepime for now, leukocytosis resolved. CT chest pending, blood cultures pending. 09/11 blood cx no significant growth to date, may consider d/c abx tomorrow 09/12 Blood cx still negative for pathogen, however given worsening respiratory status last night will continue abx. Qualifiers: Qualified Codes: J18.1 - Lobar pneumonia, unspecified organism (4) Elevated troponin Status: Acute Assessment & Plan: Suspect related to hypoxia, Cardiology consulted, appreciate recommendations. (5) COPD exacerbation Status: Acute Assessment & Plan: IV solumedrol, duonebs. Dr. Odonnell consulted, appreciate recommendations. (6) Pulmonary embolism Status: Acute Assessment & Plan: Started on enoxaparin therapeutic dosing per Dr. Odonnell. Qualifiers: (7) DVT prophylaxis Status: Acute Assessment & Plan: Enoxaparin (8) Discharge planning issues Status: Acute Assessment & Plan: Patient wanting to go home, discussed that his status is not currently safe for discharge, discussed with him and his family, if he does not improve, may want to consider palliative care consult. Clinical Quality Measures DVT/VTE Risk/Contraindication: Risk Factor Score Per Nursin RFS Level Per Nursing on Admit: 4+=Very High ILIA PERRY MD September 12, 2018 14:02
[2018-09-12 16:00] VITALS: BP 140/63
[2018-09-12] MEDS: SIMvastatin 10 MG (ZOCOR) TAB PO SCH (20:28)
[2018-09-12 20:40] VITALS: BP 132/62
[2018-09-13] MEDS: methylPREDNISolone 40 MG/ML (Solu-MEDROL) VIAL IV SCH ×4 (00:12→16:57)
[2018-09-13] MEDS: CEFEPIME INJECTION 1,000 MG in WATER (STERILE) FOR INJECTION 10 ML IV SCH ×4 (00:13→16:57)
[2018-09-13 00:54] VITALS: BP 140/67
[2018-09-13 04:00] VITALS: BP 135/60
[2018-09-13 04:52] LABS: BASOPHILS % (AUTO) 0 % (0-10); EOSINOPHILS % (AUTO) 0 % (0-10); HEMATOCRIT 38 % (40-54); HEMOGLOBIN 12.9 G/DL (13.3-17.7); LYMPHOCYTES # (AUTO) 1.4 X 10^3 (1.0-4.0); LYMPHOCYTES % (AUTO) 7 % (12-44); MEAN CORPUSCULAR HEMOGLOBIN 30 PG (25-34); MEAN CORPUSCULAR HGB CONC 34 G/DL (32-36); MEAN CORPUSCULAR VOLUME 87 FL (80-99); MEAN PLATELET VOLUME 9.6 FL (7.4-10.4); MONOCYTES # (AUTO) 1.2 X 10^3 (0.0-1.0); MONOCYTES % (AUTO) 6 % (0-12); NEUTROPHILS # (AUTO) 18.1 X 10^3 (1.8-7.8); NEUTROPHILS % (AUTO) 87 % (42-75); PLATELET COUNT 438 10^3/uL (130-400); RED CELL DISTRIBUTION WIDTH 15.1 % (10.0-14.5); WHITE BLOOD COUNT 20.7 10^3/uL (4.3-11.0)
[2018-09-13 05:12] LABS: ALANINE AMINOTRANSFERASE 53 U/L (0-55); ALKALINE PHOSPHATASE 58 U/L (40-136); BILIRUBIN,TOTAL 0.4 MG/DL (0.1-1.0); BUN/CREATININE RATIO 29; CARBON DIOXIDE 19 MMOL/L (21-32); CHLORIDE 111 MMOL/L (98-107); CREATININE SERUM 1.03 MG/DL (0.60-1.30); GFR ESTIMATED > 60; GLUCOSE 145 MG/DL (70-105); POTASSIUM 3.9 MMOL/L (3.6-5.0); SODIUM 141 MMOL/L (135-145); TOTAL PROTEIN 5.9 GM/DL (6.4-8.2)
[2018-09-13 05:24] LABS: LYMPHOCYTES % (MANUAL) 10 %; MONOCYTES % (MANUAL) 5 %; NEUTROPHILS % (MANUAL) 85 %; RBC MORPH NORMAL
[2018-09-13] MEDS: RT-ALBUTEROL/IPRATROPIUM 3 ML (DUONEB) VIAL IH SCH ×5 (06:48→22:31)
[2018-09-13 08:00] VITALS: BP 102/72
--- NOTE | 2018-09-13 08:13 | Progress Note (SOAP) ---
Subjective Subjective/Events-last exam Afebrile, remains on vapotherm, states he is feeling well. Review of Systems Date Seen by Provider: September 13, 2018 Time Seen by Provider: 06:20 Focused Exam Time of Focused Exam: 22:02 Objective Exam Last Set of Vital Signs Vital Signs Date Time Temp Pulse Resp B/P (MAP) Pulse Ox O2 Delivery O2 Flow Rate FiO2 09/13/18 06:48 91 Vapotherm 15.00 40 09/13/18 04:00 98.7 100 20 135/60 (85) Capillary Refill : Less Than 3 Seconds I&O Intake and Output 09/13/18 00:00 Intake Total 2535 ml Output Total 1900 ml Balance 635 ml Intake Oral 1525 ml IV Total 1010 ml Output Urine Total 1900 ml General: Alert, No Acute Distress Lungs: Other (ronchi) Heart: Regular Rate, No Murmurs Extremities: No Edema Neuro: Normal Speech Results/Procedures Lab Laboratory Tests 09/13/18 04:10: White Blood Count 20.7H, Red Blood Count 4.32L, Hemoglobin 12.9L, Hematocrit 38L , Mean Corpuscular Volume 87, Mean Corpuscular Hemoglobin 30, Mean Corpuscular Hemoglobin Concent 34, Red Cell Distribution Width 15.1H, Platelet Count 438H, Mean Platelet Volume 9.6, Neutrophils (%) (Auto) 87H, Lymphocytes (%) (Auto) 7L , Monocytes (%) (Auto) 6, Eosinophils (%) (Auto) 0, Basophils (%) (Auto) 0, Neutrophils # (Auto) 18.1H, Lymphocytes # (Auto) 1.4, Monocytes # (Auto) 1.2H, Eosinophils # (Auto) 0.0, Basophils # (Auto) 0.0, Neutrophils % (Manual) 85, Lymphocytes % (Manual) 10, Monocytes % (Manual) 5, Blood Morphology Comment NORMAL, Sodium Level 141, Potassium Level 3.9, Chloride Level 111H, Carbon Dioxide Level 19L, Anion Gap 11, Blood Urea Nitrogen 30H, Creatinine 1.03, Estimat Glomerular Filtration Rate > 60, BUN/Creatinine Ratio 29, Glucose Level 145H, Calcium Level 9.0, Corrected Calcium 9.8, Total Bilirubin 0.4, Aspartate Amino Transf (AST/SGOT) 44H, Alanine Aminotransferase (ALT/SGPT) 53, Alkaline Phosphatase 58, Total Protein 5.9L, Albumin 3.0L Microbiology 09/09/18 Blood Culture - Preliminary, Resulted No growth 09/09/18 MRSA Screen - Final, Complete MRSA not isolated Radiology NAME: SELENA JARAMILLO [facility] REC#: [id number] PT STATUS: ADM IN : 1945 PHYSICIAN: ILIA PERRY MD ADMIT DATE: 09/09/18/ICU Signed Date of Exam: 09/10/18 CHEST 1 VIEW, AP/PA ONLY INDICATION: Sepsis, pneumonia, COPD. TECHNIQUE: Frontal view of the chest. COMPARISON: 09/09/2018 FINDINGS: Lung volumes are large. There are airspace and interstitial opacities in the lung bases. The cardiac silhouette is normal in size. No pneumothorax or pleural effusion is seen. IMPRESSION: 1. Stable bibasilar pulmonary opacities, which are age-indeterminate. These may represent chronic scarring versus acute infiltrate. Dictated by: Dictated on workstation # [id number] Dict: 09/10/18 0803 Trans: 09/10/18 1041 Interpreted by: JEAN MARIE WASHINGTON MD Electronically signed by: JEAN MARIE WASHINGTON MD 09/10/18 1041 Assessment/Plan Assessment/Plan (1) Respiratory failure Status: Acute Assessment & Plan: Requiring vapotherm on admission. Improved this am and on 4 lpm nasal cannula. Suspect secondary to COPD exacerbation, possible pneumonia. Dr. Odonnell consulted, appreciate recommendations. CTA chest pending. 09/11 CTA chest with PE, see below. Qualifiers: Qualified Codes: J96.01 - Acute respiratory failure with hypoxia (2) Severe sepsis Status: Resolved Assessment & Plan: Suspected secondary to pneumonia with respiratory failure and WBC elevated on admit. No elevation in lactic acid and no hypotension. CXR without clear evidence of pneumonia, started on cefepime from ER, will continue while blood cultures pending. (3) Pneumonia Status: Acute Assessment & Plan: Possible given leukocytosis and respiratory failure, however CXR not convincing. Continue cefepime for now, leukocytosis resolved. CT chest pending, blood cultures pending. 09/11 blood cx no significant growth to date, may consider d/c abx tomorrow 5/2 Blood cx still negative for pathogen, however given worsening respiratory status last night will continue abx. Qualifiers: Qualified Codes: J18.1 - Lobar pneumonia, unspecified organism (4) Elevated troponin Status: Acute Assessment & Plan: Suspect related to hypoxia, Cardiology consulted, appreciate recommendations. (5) COPD exacerbation Status: Acute Assessment & Plan: IV solumedrol, duonebs. Dr. Odonnell consulted, appreciate recommendations. (6) Pulmonary embolism Status: Acute Assessment & Plan: Started on enoxaparin therapeutic dosing per Dr. Odonnell. Qualifiers: (7) DVT prophylaxis Status: Acute Assessment & Plan: Enoxaparin (8) Discharge planning issues Status: Acute Assessment & Plan: Patient wanting to go home, discussed that his status is not currently safe for discharge, discussed with him and his family, if he does not improve, may want to consider palliative care consult. Clinical Quality Measures DVT/VTE Risk/Contraindication: Risk Factor Score Per Nursin RFS Level Per Nursing on Admit: 4+=Very High ILIA PERRY MD September 13, 2018 08:13
[2018-09-13] MEDS: ASPIRIN 81 MG CHEW (CHILDREN'S ASA) PO SCH (09:00)
[2018-09-13] MEDS: ENOXAPARIN 60 MG/0.6 ML (LOVENOX) SYR SC SCH ×2 (09:00→20:00)
--- NOTE | 2018-09-13 09:14 | Progress Note-Cardiology ---
Cardiology SOAP Progress Note Subjective: Sitting up in bed. Family member x1 at the bedside. States he feels better this morning. Feels breathing is better. No c/o CP or palpitations. C/O gen weakness. Objective: I&O/Vital Signs 09/13/18 09/13/18 09/13/18 09/13/18 04:00 06:48 08:00 08:00 Temp 98.7 97.3 Pulse 100 82 Resp 20 20 B/P (MAP) 135/60 (85) 102/72 (82) Pulse Ox 92 91 92 O2 Delivery Vapotherm Vapotherm Vapotherm Vapotherm O2 Flow Rate 40.00 15.00 40.00 15.00 15.00 15.00 FiO2 40 40 09/13/18 09/13/18 10:49 12:00 Temp 96.1 Pulse 84 Resp 20 B/P (MAP) 156/72 (100) Pulse Ox 92 93 O2 Delivery Vapotherm Vapotherm O2 Flow Rate 15.00 40.00 15.00 FiO2 40 09/12/18 23:59 Intake Total 1825 ml Output Total 700 ml Balance 1125 ml Weight (Pounds): 131 Weight (Ounces): 5.0 Weight (Calculated Kilograms): 59.846753 Constitutional: AAO x 3, other (thin) Respiratory: No accessory muscle use, No respiratory distress; chest expansion is symmetric, chest is bilaterally symmetric, crackles (lower lobes), rhonchi ( scattered) Cardiovascular: regular rate-rhythm; No JVD; S1 and S2 Gastrointestional: No tender; soft, round, audible bowel sounds Extremities: no lower extremity edema bilateral Neurologic/Psychiatric: grossly intact, power is 5/5 both on sides Skin: No rash, No ulcerations Results/Procedures: Labs Laboratory Tests 09/13/18 04:10: White Blood Count 20.7H, Red Blood Count 4.32L, Hemoglobin 12.9L, Hematocrit 38L , Mean Corpuscular Volume 87, Mean Corpuscular Hemoglobin 30, Mean Corpuscular Hemoglobin Concent 34, Red Cell Distribution Width 15.1H, Platelet Count 438H, Mean Platelet Volume 9.6, Neutrophils (%) (Auto) 87H, Lymphocytes (%) (Auto) 7L , Monocytes (%) (Auto) 6, Eosinophils (%) (Auto) 0, Basophils (%) (Auto) 0, Neutrophils # (Auto) 18.1H, Lymphocytes # (Auto) 1.4, Monocytes # (Auto) 1.2H, Eosinophils # (Auto) 0.0, Basophils # (Auto) 0.0, Neutrophils % (Manual) 85, Lymphocytes % (Manual) 10, Monocytes % (Manual) 5, Blood Morphology Comment NORMAL, Sodium Level 141, Potassium Level 3.9, Chloride Level 111H, Carbon Dioxide Level 19L, Anion Gap 11, Blood Urea Nitrogen 30H, Creatinine 1.03, Estimat Glomerular Filtration Rate > 60, BUN/Creatinine Ratio 29, Glucose Level 145H, Calcium Level 9.0, Corrected Calcium 9.8, Total Bilirubin 0.4, Aspartate Amino Transf (AST/SGOT) 44H, Alanine Aminotransferase (ALT/SGPT) 53, Alkaline Phosphatase 58, B-Type Natriuretic Peptide 189.6H, Total Protein 5.9L, Albumin 3.0L Microbiology 09/09/18 Blood Culture - Preliminary, Resulted No growth 09/09/18 MRSA Screen - Final, Complete MRSA not isolated A/P: Assessment: Elevated troponin, likely type 2 [place] due to resp failure/sepsis Echo of : LVEF 60-65%, no regional wall motion abnormality, PASP within normal limits Pneumonia with sepsis - management per pulmonary services Acute exacerbation of COPD - management per pulmonary services Reported h/o CVA in 2005 - details unknown HLD - statin tx H/O "stomach cancer" approx 20 years ago - treated in [place] - details unknown Tobaccoism - cessation advised Plan: * Risk factor modification reviewed * Continue current regimen of aspirin and statin * Monitor labs * PT consult for strengthening Physician Assessment Physician Assessment No cp or palp or syncope. Notes some improvement of shortness of breath No acute distress Lungs: good air entry, diminished at the bases Cor: reg Ext: no c/c/e A&R * As documented in our note above that I updated (italics) and as noted below * Monitor labs * Dr Shaw covering our service over the weekend RAISA MONTERO [facility] September 13, 2018 09:14 KAISER LEDESMA MD [facility] September 13, 2018 14:16
--- NOTE | 2018-09-13 11:04 | Pulmonary Progress Note ---
Subjective Time Seen by a Provider: 11:03 Subjective/Events-last exam PT is still on requiring Vapotherm Sepsis Event Evaluation Height, Weight, BMI Height: 5'8.00" Weight: 131lbs. 5.0oz. 59.689816wt; 19.5 BMI Method:Stated Focused Exam Time of Focused Exam: 22:02 Exam Exam Vital Signs Date Time Temp Pulse Resp B/P (MAP) Pulse Ox O2 Delivery O2 Flow Rate FiO2 09/13/18 10:49 92 Vapotherm 15.00 40 09/13/18 08:00 Vapotherm 15.00 40 09/13/18 08:00 97.3 82 20 102/72 (82) 92 Vapotherm 40.00 15.00 09/13/18 06:48 91 Vapotherm 15.00 40 09/13/18 04:00 98.7 100 20 135/60 (85) 92 Vapotherm 40.00 15.00 09/13/18 00:54 98.7 101 20 140/67 (91) 92 Vapotherm 40.00 15.00 09/12/18 20:40 98.4 103 26 132/62 (85) 92 Vapotherm 40.00 15.00 09/12/18 20:00 Vapotherm 09/12/18 18:54 90 Vapotherm 15.00 40 09/12/18 16:00 98.2 87 18 140/63 (88) 92 Vapotherm 40.00 15.00 09/12/18 12:00 97.8 88 18 131/75 (93) 94 Vapotherm 40.00 15.00 I & O 09/13/18 07:00 Intake Total 2235 ml Output Total 1050 ml Balance 1185 ml Height & Weight Height: 5'8.00" Weight: 131lbs. 5.0oz. 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
[2018-09-13 12:00] VITALS: BP 156/72
--- NOTE | 2018-09-13 12:02 | Physical Therapy Evaluation ---
PT Evaluation-General Medical Diagnosis Admission Date Sep 09, 2018 at 21:45 Medical Diagnosis: sepsis Onset Date: October 09, 2018 Therapy Diagnosis Therapy Diagnosis: weakness Height/Weight Height (Feet): 5 Height (Inches): 8.00 Weight (Pounds): 131 Weight (Ounces): 5.0 Precautions Precautions/Isolations: Fall Prevention, Standard Precautions Weight Bear Status Right Lower Extremity: Right Full Weight Bearing Left Lower Extremity: Left Full Weight Bearing Referral Physician: Sophia Reason for Referral: Evaluation/Treatment Medical History Pertinent Medical History: COPD, Smoking Current History Pt admitted due to decreased oxygen saturations with findings of sepsis with pneumonia. Reviewed History: Yes Social History Home: Single Level Current Living Status: Children (lives with his son) Entry Into Home: Stairs With Railing PT Steps Inside Home: 12 (baseement, but he does not use) Prior/Core FIM Prior Level of Function Therapy Code Descriptions/Definitions Functional [place] Measure: 0=Not Assessed/NA 4=Minimal Assistance 1=Total Assistance 5=Supervision or Setup 2=Maximal Assistance 6=Modified [place] 3=Moderate Assistance 7=Complete [place] Therapy Quality Codes: 6 Independent with activity with or without an assistive device 5 Patient requires set up or clean up by helper. Patient completes activity by themselves 4 Supervision or touching assist (CGA). Friend provide cues , steadying assist 3 The helper provides less than half the effort to complete the activity 2 The helper provides more than half the effort to complete the activity 1 Dependent. The helper does all the effort to complete an activity 7 Patient refused to complete or attempt activity 9 The patient did not perform the activity before the current illness or injury 88 Not attempted due to Medical conditions or safety concerns Functional Abilities and Goals: Independent: Patient completed the activities by him/herself, with or without an assistive device, with no assistance from a helper. Needed Some Help: Patient needed partial assistance from another person to complete activities. Dependent: A helper completed the activities for the patient. Unknown: Not Applicable: Bed Mobility: 7 Transfers (B,C,W/C) (FIM): 7 Gait: 7 Indoor Mobility (Ambulation): Independent Stairs: Independent PT Evaluation-Current Subjective Agrees to PT. Agrees to sit up in the chair. Pain Numeric Pain Scale: 0-No Pain Location: No Pain Reported Objective Patient Orientation: Person, Place, Time, Situation Problem Solving: Good Attachments: Oxygen (vapo therm) ROM/Strength ROM Lower Extremities WNL Strength Lower Extremities grossly 4-/5 Integumentary/Posture Integumentary refer to nursing notes. Bowel Incontinence: Yes Bladder Incontinence: Warren Cath Posture symmetrical Neuromuscular (Tone, Coordination, Reflexes) intact Sensory Vision: Functional Hearing: Functional Hand Dominance: Right Sensation Right Lower Extremit: Intact Sensation Left Lower Extremity: Intact Transfers Therapy Code Descriptions/Definitions Functional [place] Measure: 0=Not Assessed/NA 4=Minimal Assistance 1=Total Assistance 5=Supervision or Setup 2=Maximal Assistance 6=Modified [place] 3=Moderate Assistance 7=Complete [place] Transfers (B, C, W/C) (FIM): 4 (CGA for safety) Supine to/from Sit: 5 Sit to/from Stand: 4 Pt stood at EOB and took 2-3 steps to transfer to the chair with FWW with CGA. Steady. controlled descent to sit in chair. Balance Sitting Static: Good Sitting Dynamic: Good Standing Static: Fair Standing Dynamic: Fair Treatment Pt transferred to the chair. Assessment/Needs Pt prresents with dx of sepsis with decreased OOB activity the last few days. He has slight functional weakness and decreased activity. He will benefit from skilled PT to promote and progress functional transfers and gait to allow him to increase activity and return home as before. Rehab Potential: Good PT Train Gateman Goals Train Gateman Goals PT Train Gateman Goals Time Frame: September 20, 2018 Transfers (B,C,W/C) (FIM): 7 Gait (FIM): 6 PT Plan Problem List Problem List: Activity Tolerance, Functional Strength, Safety, Balance, Gait, Transfer, Bed Mobility Treatment/Plan Treatment Plan: Continue Plan of Care Treatment Plan: Bed Mobility, Education, Functional Activity [place], Functional Strength, Gait, Safety, Therapeutic Exercise, Transfers Treatment Duration: September 20, 2018 Frequency: 6 times per week Estimated Hrs Per Day: .25 hour per day Patient and/or Family Agrees t: Yes Safety Risks/Education Patient Education: Safety Issues Teaching Recipient: Patient Teaching Methods: Discussion Response to Teaching: Reinforcement Needed Time/GCodes Time In: 1040 Time Out: 1100 Total Billed Treatment Time: 20 Total Billed Treatment visit EVL 20 TE DAN PT September 13, 2018 12:02
--- NOTE | 2018-09-13 15:45 | NUR ---
CM/SS, initial interview with patient now that he has improved. Patient and his son Isac Li reside together. He intends to return home when medically released and stated he wished he could go now. DME: Dr. Odonnell noted vent to mask at discharge, discussed with patient and notified [facility]. Patient is insured Medicare and Veterans, will attempt to get DME through Medicare. Otherwise, DME delivery will likely take 1-2 days or more from [facility] by the time order goes to them and they approve through patient's [facility] physician(s). Patient states he does not have FWW and no home O2. HHC: PT notes reflect recommendation for skilled services/therapies. Explored HHC with patient, he states he does not want HHC and no one coming to the home. Consider SWB if appropriate, doubtful patient would agree to short term SNF and he has already declined HHC. He is feeling better per his report, hopeful he can become more ambulatory and begin to regain strength.
[2018-09-13 16:23] VITALS: BP 132/63
[2018-09-13 19:24] VITALS: BP 145/65
[2018-09-13] MEDS: SIMvastatin 10 MG (ZOCOR) TAB PO SCH (19:59)
[2018-09-14] VITALS: BP 126/62
[2018-09-14] MEDS ORDERED: CEFEPIME 2 GM (MAXIPIME) VIAL ONE (00:20)
[2018-09-14] MEDS ORDERED: WATER (STERILE) FOR INJECTION 0 ML ONE (00:20)
[2018-09-14] MEDS: methylPREDNISolone 40 MG/ML (Solu-MEDROL) VIAL IV SCH ×5 (00:30→23:19)
[2018-09-14] MEDS: CEFEPIME INJECTION 1,000 MG in WATER (STERILE) FOR INJECTION 10 ML IV SCH ×5 (00:30→23:20)
[2018-09-14] MEDS: RT-ALBUTEROL/IPRATROPIUM 3 ML (DUONEB) VIAL IH SCH ×6 (03:08→23:01)
[2018-09-14 04:00] VITALS: BP 122/56
[2018-09-14 06:28] LABS: BASOPHILS % (AUTO) 0 % (0-10); EOSINOPHILS % (AUTO) 0 % (0-10); HEMATOCRIT 36 % (40-54); HEMOGLOBIN 11.8 G/DL (13.3-17.7); LYMPHOCYTES % (AUTO) 10 % (12-44); MEAN CORPUSCULAR HEMOGLOBIN 29 PG (25-34); MEAN CORPUSCULAR HGB CONC 33 G/DL (32-36); MEAN CORPUSCULAR VOLUME 88 FL (80-99); MEAN PLATELET VOLUME 9.3 FL (7.4-10.4); MONOCYTES # (AUTO) 1.5 X 10^3 (0.0-1.0); MONOCYTES % (AUTO) 7 % (0-12); NEUTROPHILS # (AUTO) 16.8 X 10^3 (1.8-7.8); NEUTROPHILS % (AUTO) 83 % (42-75); PLATELET COUNT 371 10^3/uL (130-400); WHITE BLOOD COUNT 20.3 10^3/uL (4.3-11.0)
[2018-09-14 06:47] LABS: ALANINE AMINOTRANSFERASE 78 U/L (0-55); ALBUMIN 2.8 GM/DL (3.2-4.5); ALKALINE PHOSPHATASE 45 U/L (40-136); BILIRUBIN,TOTAL 0.4 MG/DL (0.1-1.0); BUN/CREATININE RATIO 33; CALCIUM 8.9 MG/DL (8.5-10.1); CARBON DIOXIDE 22 MMOL/L (21-32); CHLORIDE 110 MMOL/L (98-107); CREATININE SERUM 0.87 MG/DL (0.60-1.30); GFR ESTIMATED > 60; GLUCOSE 131 MG/DL (70-105); POTASSIUM 4.4 MMOL/L (3.6-5.0); SODIUM 139 MMOL/L (135-145); TOTAL PROTEIN 5.2 GM/DL (6.4-8.2)
[2018-09-14 08:00] VITALS: BP 128/61
[2018-09-14] MEDS: ENOXAPARIN 60 MG/0.6 ML (LOVENOX) SYR SC SCH ×2 (08:04→20:46)
[2018-09-14] MEDS: ASPIRIN 81 MG CHEW (CHILDREN'S ASA) PO SCH (08:04)
--- NOTE | 2018-09-14 08:55 | Progress Note (SOAP) ---
Subjective Subjective/Events-last exam Patient resting comfortably lying in bed. He states he is ready to go home but he understands that he still has oxygen on and is receiving active IV therapy for pneumonia. His son was also present in the room and states he appears to be doing better. He is now off Vapotherm and has 4 L by nasal cannula oxygen. He is without any dyspnea. Review of Systems Date Seen by Provider: September 14, 2018 Time Seen by Provider: 08:00 Focused Exam Time of Focused Exam: 22:02 Objective Exam Last Set of Vital Signs Vital Signs Date Time Temp Pulse Resp B/P (MAP) Pulse Ox O2 Delivery O2 Flow Rate FiO2 09/14/18 06:22 High Flow N/C 4.00 09/14/18 04:00 98.1 61 20 122/56 (78) 90 09/13/18 10:49 40 Capillary Refill : Less Than 3 Seconds I&O Intake and Output 09/14/18 00:00 Intake Total 2000 ml Output Total 1250 ml Balance 750 ml Intake Oral 1400 ml IV Total 600 ml Output Urine Total 1250 ml # Bowel Movements 1 General: No Acute Distress Neck: Supple Lungs: Other (Few rales bibasilar) Heart: Regular Rate Abdomen: Soft Extremities: No Edema Skin: No Rashes Psych/Mental Status: Mental Status NL Results/Procedures Lab Laboratory Tests 09/14/18 05:57: White Blood Count 20.3H, Red Blood Count 4.04L, Hemoglobin 11.8L, Hematocrit 36L , Mean Corpuscular Volume 88, Mean Corpuscular Hemoglobin 29, Mean Corpuscular Hemoglobin Concent 33, Red Cell Distribution Width 15.0H, Platelet Count 371, Mean Platelet Volume 9.3, Neutrophils (%) (Auto) 83H, Lymphocytes (%) (Auto) 10L , Monocytes (%) (Auto) 7, Eosinophils (%) (Auto) 0, Basophils (%) (Auto) 0, Neutrophils # (Auto) 16.8H, Lymphocytes # (Auto) 2.0, Monocytes # (Auto) 1.5H, Eosinophils # (Auto) 0.0, Basophils # (Auto) 0.0, Sodium Level 139, Potassium Level 4.4, Chloride Level 110H, Carbon Dioxide Level 22, Anion Gap 7, Blood Urea Nitrogen 29H, Creatinine 0.87, Estimat Glomerular Filtration Rate > 60, BUN /Creatinine Ratio 33, Glucose Level 131H, Calcium Level 8.9, Corrected Calcium 9.9, Total Bilirubin 0.4, Aspartate Amino Transf (AST/SGOT) 44H, Alanine Aminotransferase (ALT/SGPT) 78H, Alkaline Phosphatase 45, Total Protein 5.2L, Albumin 2.8L Microbiology 09/09/18 Blood Culture - Preliminary, Resulted No growth 09/09/18 MRSA Screen - Final, Complete MRSA not isolated Radiology NAME: SELENA JARAMILLO [facility] REC#: [id number] PT STATUS: ADM IN : 1945 PHYSICIAN: ILIA PERRY MD ADMIT DATE: 09/09/18/ICU Signed Date of Exam: 09/10/18 CHEST 1 VIEW, AP/PA ONLY INDICATION: Sepsis, pneumonia, COPD. TECHNIQUE: Frontal view of the chest. COMPARISON: 09/09/2018 FINDINGS: Lung volumes are large. There are airspace and interstitial opacities in the lung bases. The cardiac silhouette is normal in size. No pneumothorax or pleural effusion is seen. IMPRESSION: 1. Stable bibasilar pulmonary opacities, which are age-indeterminate. These may represent chronic scarring versus acute infiltrate. Dictated by: Dictated on workstation # [id number] Dict: 09/10/18 0803 Trans: 09/10/18 1041 Interpreted by: JEAN MARIE WASHINGTON MD Electronically signed by: JEAN MARIE WASHINGTON MD 09/10/18 1041 Assessment/Plan Assessment/Plan (1) Respiratory failure Status: Acute Assessment & Plan: Requiring vapotherm on admission. Improved this am and on 4 lpm nasal cannula. Suspect secondary to COPD exacerbation, possible pneumonia. Dr. Odonnell consulted, appreciate recommendations. CTA chest pending. 09/11 CTA chest with PE, see below. 09/14 -Patient overall is improving. He is now off Vapotherm. Qualifiers: Qualified Codes: J96.01 - Acute respiratory failure with hypoxia (2) Severe sepsis Status: Resolved Assessment & Plan: Suspected secondary to pneumonia with respiratory failure and WBC elevated on admit. No elevation in lactic acid and no hypotension. CXR without clear evidence of pneumonia, started on cefepime from ER, will continue while blood cultures pending. 09/14 -Cefepime continues at 1 g every 6 hours. (3) Pneumonia Status: Acute Assessment & Plan: Possible given leukocytosis and respiratory failure, however CXR not convincing. Continue cefepime for now, leukocytosis resolved. CT chest pending, blood cultures pending. 09/11 blood cx no significant growth to date, may consider d/c abx tomorrow 09/12 Blood cx still negative for pathogen, however given worsening respiratory status last night will continue abx. Qualifiers: Qualified Codes: J18.1 - Lobar pneumonia, unspecified organism (4) Elevated troponin Status: Acute Assessment & Plan: Suspect related to hypoxia, Cardiology consulted, appreciate recommendations. (5) COPD exacerbation Status: Acute Assessment & Plan: IV solumedrol, duonebs. Dr. Odonnell consulted, appreciate recommendations. 09/14 -His white blood cell count is 20.3 and I suspect this is steroid effects due to the treatment of his COPD. (6) Pulmonary embolism Status: Acute Assessment & Plan: Started on enoxaparin therapeutic dosing per Dr. Odonnell. 09/14 -Patient continues with Lovenox 60 mg twice daily. Qualifiers: (7) DVT prophylaxis Status: Acute Assessment & Plan: Enoxaparin (8) Discharge planning issues Status: Acute Assessment & Plan: Patient wanting to go home, discussed that his status is not currently safe for discharge, discussed with him and his family, if he does not improve, may want to consider palliative care consult. Clinical Quality Measures DVT/VTE Risk/Contraindication: Risk Factor Score Per Nursin RFS Level Per Nursing on Admit: 4+=Very High MIRI LOPEZ MD September 14, 2018 08:55
--- NOTE | 2018-09-14 09:53 | Cardiology Progress Note ---
Subjective Date Seen by Provider: September 14, 2018 Time Seen by Provider: 09:51 Subjective/Events-last exam patient is laying down in bed, difficulty hearing. No chest pain, no shortness of breath. Review of Systems General: No Chills, No Night Sweats, No Fatigue, No Malaise, No Appetite, No Other HEENT: No Head Aches, No Visual Changes, No Eye Pain, No Ear Pain, No Dysphasia , No Sinus Congestion, No Post Nasal Drip, No Sore Throat, No Other Pulmonary: No Dyspnea, No Cough, No Pleuritic Chest Pain, No Other Cardiovascular: No: Chest Pain, Palpitations, Orthopnea, Paroxysmal Noc. Dyspnea, Edema, Lt Headedness, Other Focused Exam Time of Focused Exam: 22:02 Objective-Cardiology Exam Last Set of Vital Signs Vital Signs 09/13/18 09/14/18 10:49 09:31 Pulse Ox 90 O2 Delivery High Flow N/C O2 Flow Rate 4.00 FiO2 40 Capillary Refill : Less Than 3 Seconds I&O Intake and Output 09/14/18 00:00 Intake Total 2000 ml Output Total 1250 ml Balance 750 ml Intake Oral 1400 ml IV Total 600 ml Output Urine Total 1250 ml # Bowel Movements 1 General: No Acute Distress HEENT: Atraumatic, PERRLA Neck: Supple Lungs: Other (Few rales bibasilar) Heart: Regular Rate Abdomen: Soft Extremities: No Edema Skin: No Rashes Neuro: Normal Speech Psych/Mental Status: Mental Status NL Results Lab Laboratory Tests 09/14/18 05:57 A/P-Cardiology Admission Diagnosis Sepsis Pneumonia Type II myocardial infarction Hyperlipidemia Assessment/Plan Pneumonia with sepsis, status post respiratory failure. Improving. Continue to monitor Elevated troponin, most probably type II myocardial infarction secondary to respiratory failure and hypoxemia. Continue to monitor COPD status post exacerbation. Managed by primary care team Hyperlipidemia, maintained on statin History of CVA in 2005. Next History of gastric cancer. Treated in [place] Next Tobaccoism, educated on smoking cessation. Continue to monitor blood pressure. No changes are recommended at this time. Clinical Quality Measures DVT/VTE Risk/Contraindication: Risk Factor Score Per Nursin RFS Level Per Nursing on Admit: 4+=Very High CAMERON GAMING MD September 14, 2018 09:53
[2018-09-14 12:00] VITALS: BP 130/65
--- NOTE | 2018-09-14 12:31 | Physical Therapy Daily Note ---
PT Daily Note-Current Subjective Pt eating breakfast and requesting later treatment upon 1st attempt. Came back later, pt agreeable to PT and states he wants to get up and walk Pain Numeric Pain Scale: 0-No Pain Appearance upon arrival, pt in bed with HOB elevated, son present during treatment, pt awake and alert At end of session, pt sitting up at EOB, call light, phone and bedside table within reach, pt's son at bedside Mental Status Patient Orientation: Person, Place, Eyes Open Attachments: Oxygen Transfers Therapy Code Descriptions/Definitions Functional [place] Measure: 0=Not Assessed/NA 4=Minimal Assistance 1=Total Assistance 5=Supervision or Setup 2=Maximal Assistance 6=Modified [place] 3=Moderate Assistance 7=Complete [place] Therapy Quality Codes: 6 Independent with activity with or without an assistive device 5 Patient requires set up or clean up by helper. Patient completes activity by themselves 4 Supervision or touching assist (CGA). [place] provide cues , steadying assist 3 The helper provides less than half the effort to complete the activity 2 The helper provides more than half the effort to complete the activity 1 Dependent. The helper does all the effort to complete an activity 7 Patient refused to complete or attempt activity 9 The patient did not perform the activity before the current illness or injury 88 Not attempted due to Medical conditions or safety concerns Transfers (B, C, W/C) (FIM): 4 Scootin Rollin Supine to/from Sit: 4 (HOB elevated, use of bedrails) Sit to/from Stand: 4 (CGA provided due to unsteadiness upon standing) Weight Bearing Right Lower Extremity: Right Full Weight Bearing Left Lower Extremity: Left Full Weight Bearing Gait Training Gait (FIM): 5 Distance (FIM): 3=150 ft Distance: 200 Gait Level of Assist: 5 Gait Persons Needed: 1 Gait Assistive Device: FWW Pt does not normally use walker, agreeable to use FWW this morning due to slight unsteadiness upon standing and initiating gait. Steady with use of walker but requiring mod verb instruction for positioning. BLE ER, toes out. Treatments bed mobility, transfers, safety, gait, proper use of equipment, functional mobility, balance, activity tolerance Assessment Current Status: Good Progress fatigues, but able to increase gait distance, unsteady initially and agreed to use FWW, but requiring instruction on positioning PT American Studies Professor Goals American Studies Professor Goals PT American Studies Professor Goals Time Frame: September 20, 2018 Transfers (B,C,W/C) (FIM): 7 Gait (FIM): 6 PT Plan Treatment/Plan Treatment Plan: Continue Plan of Care Treatment Plan: Bed Mobility, Education, Functional Activity [place], Functional Strength, Gait, Safety, Therapeutic Exercise, Transfers Treatment Duration: September 20, 2018 Frequency: 6 times per week Estimated Hrs Per Day: .25 hour per day Patient and/or Family Agrees t: Yes Safety Risks/Education Patient Education: Gait Training, Transfer Techniques, Safety Issues Teaching Recipient: Patient Teaching Methods: Demonstration, Discussion Response to Teaching: Verbalize Understanding, Return Demonstration, Reinforcement Needed Time/GCodes Time In: 1041 Time Out: 1055 Total Billed Treatment Time: 14 Total Billed Treatment 1 visit, GT x 1 unit SEJAL RIVAS PTA September 14, 2018 12:31
[2018-09-14 16:30] VITALS: BP 114/57
[2018-09-14 19:55] VITALS: BP 140/63
[2018-09-14] MEDS: SIMvastatin 10 MG (ZOCOR) TAB PO SCH (20:46)
[2018-09-15 00:45] VITALS: BP 107/56
[2018-09-15] MEDS: RT-ALBUTEROL/IPRATROPIUM 3 ML (DUONEB) VIAL IH SCH ×6 (01:25→22:33)
[2018-09-15 04:00] VITALS: BP 108/55
[2018-09-15 05:24] LABS: BASOPHILS % (AUTO) 0 % (0-10); EOSINOPHILS % (AUTO) 0 % (0-10); HEMATOCRIT 35 % (40-54); HEMOGLOBIN 11.9 G/DL (13.3-17.7); LYMPHOCYTES # (AUTO) 1.5 X 10^3 (1.0-4.0); LYMPHOCYTES % (AUTO) 7 % (12-44); MEAN CORPUSCULAR HEMOGLOBIN 30 PG (25-34); MEAN CORPUSCULAR HGB CONC 34 G/DL (32-36); MEAN CORPUSCULAR VOLUME 88 FL (80-99); MONOCYTES # (AUTO) 1.6 X 10^3 (0.0-1.0); MONOCYTES % (AUTO) 7 % (0-12); NEUTROPHILS # (AUTO) 19.1 X 10^3 (1.8-7.8); NEUTROPHILS % (AUTO) 86 % (42-75); PLATELET COUNT 399 10^3/uL (130-400); RED CELL DISTRIBUTION WIDTH 14.9 % (10.0-14.5); WHITE BLOOD COUNT 22.2 10^3/uL (4.3-11.0)
[2018-09-15] MEDS: CEFEPIME INJECTION 1,000 MG in WATER (STERILE) FOR INJECTION 10 ML IV SCH ×4 (05:43→23:28)
[2018-09-15] MEDS: methylPREDNISolone 40 MG/ML (Solu-MEDROL) VIAL IV SCH ×4 (05:43→23:28)
[2018-09-15 05:47] LABS: ALANINE AMINOTRANSFERASE 99 U/L (0-55); ALBUMIN 2.7 GM/DL (3.2-4.5); ALKALINE PHOSPHATASE 40 U/L (40-136); BILIRUBIN,TOTAL 0.4 MG/DL (0.1-1.0); BUN/CREATININE RATIO 34; CALCIUM 8.4 MG/DL (8.5-10.1); CARBON DIOXIDE 22 MMOL/L (21-32); CHLORIDE 108 MMOL/L (98-107); CREATININE SERUM 0.92 MG/DL (0.60-1.30); GFR ESTIMATED > 60; GLUCOSE 144 MG/DL (70-105); POTASSIUM 4.1 MMOL/L (3.6-5.0); SODIUM 137 MMOL/L (135-145)
[2018-09-15 08:00] VITALS: BP 113/56
[2018-09-15] MEDS: ASPIRIN 81 MG CHEW (CHILDREN'S ASA) PO SCH (08:33)
[2018-09-15] MEDS: ENOXAPARIN 60 MG/0.6 ML (LOVENOX) SYR SC SCH ×2 (08:33→20:41)
--- NOTE | 2018-09-15 08:39 | Cardiology Progress Note ---
Subjective Date Seen by Provider: September 15, 2018 Time Seen by Provider: 08:37 Subjective/Events-last exam Patient is in bed, feeling better, no new complaint Review of Systems General: No Chills, No Night Sweats, No Fatigue, No Malaise, No Appetite, No Other HEENT: No Head Aches, No Visual Changes, No Eye Pain, No Ear Pain, No Dysphasia , No Sinus Congestion, No Post Nasal Drip, No Sore Throat, No Other Pulmonary: Dyspnea; No Cough, No Pleuritic Chest Pain, No Other Cardiovascular: No: Chest Pain, Palpitations, Orthopnea, Paroxysmal Noc. Dyspnea, Edema, Lt Headedness, Other Focused Exam Time of Focused Exam: 22:02 Objective-Cardiology Exam Last Set of Vital Signs Vital Signs 09/13/18 09/15/18 09/15/18 10:49 04:00 06:49 Temp 98.6 Pulse 69 Resp 20 B/P (MAP) 108/55 (72) Pulse Ox 94 O2 Delivery High Flow N/C O2 Flow Rate 4.00 FiO2 40 Capillary Refill : Less Than 3 Seconds I&O Intake and Output 09/15/18 00:00 Intake Total 1030 ml Output Total 978 ml Balance 52 ml Intake Oral 810 ml IV Total 220 ml Output Urine Total 978 ml Bladder Scan Volume Amount 78 ml General: Alert, Cooperative, No Acute Distress HEENT: Atraumatic, PERRLA Neck: Supple, No JVD Lungs: Other (Few rales bibasilar) Heart: Regular Rate, Normal S1, Normal S2 Abdomen: Soft Extremities: No Clubbing, No Edema Skin: No Rashes Neuro: Normal Speech Psych/Mental Status: Mental Status NL Results Lab Laboratory Tests 09/15/18 05:12 09/15/18 05:17 A/P-Cardiology Admission Diagnosis Sepsis Pneumonia Type II myocardial infarction Hyperlipidemia Assessment/Plan Pneumonia with sepsis, status post respiratory failure. feeling better today, still having leukocytosis, managed by primary care team. Elevated troponin, most probably type II myocardial infarction secondary to respiratory failure and hypoxemia. Continue to monitor COPD status post exacerbation. Managed by primary care team Hyperlipidemia, maintained on statin History of CVA in 2005. History of gastric cancer. Treated in [place] Tobaccoism, educated on smoking cessation. Continue to monitor blood pressure. No changes are recommended at this time. Clinical Quality Measures DVT/VTE Risk/Contraindication: Risk Factor Score Per Nursin RFS Level Per Nursing on Admit: 4+=Very High CAMERON GAMING MD September 15, 2018 08:39
--- NOTE | 2018-09-15 09:23 | Progress Note (SOAP) ---
Subjective Subjective/Events-last exam Patient was awake and lying in bed this morning without distress. He is wearing nasal cannula oxygen and appears to be breathing comfortably. His son is also present with him in the room today. I spoke with his son today about the possibility of home oxygen. Apparently patient does smoke about 10 cigarettes per day and I informed this is not good with potential for having the need for oxygen at home. He does still have an occasional cough but he does not complain of any pain. He is eating fairly well. Review of Systems Date Seen by Provider: September 15, 2018 Time Seen by Provider: 07:50 Focused Exam Time of Focused Exam: 22:02 Objective Exam Last Set of Vital Signs Vital Signs Date Time Temp Pulse Resp B/P (MAP) Pulse Ox O2 Delivery O2 Flow Rate FiO2 09/15/18 08:35 High Flow N/C 4.00 09/15/18 08:00 98.2 66 20 113/56 (75) 97 09/13/18 10:49 40 Capillary Refill : Less Than 3 Seconds I&O Intake and Output 09/15/18 00:00 Intake Total 1030 ml Output Total 978 ml Balance 52 ml Intake Oral 810 ml IV Total 220 ml Output Urine Total 978 ml Bladder Scan Volume Amount 78 ml General: No Acute Distress Lungs: Other (Clear and apical areas but Rales noted in the bases) Heart: Regular Rate Abdomen: Soft Skin: No Rashes Psych/Mental Status: Mental Status NL Results/Procedures Lab Laboratory Tests 09/15/18 05:12: Sodium Level 137, Potassium Level 4.1, Chloride Level 108H, Carbon Dioxide Level 22, Anion Gap 7, Blood Urea Nitrogen 31H, Creatinine 0.92, Estimat Glomerular Filtration Rate > 60, BUN/Creatinine Ratio 34, Glucose Level 144H, Calcium Level 8.4L, Corrected Calcium 9.4, Total Bilirubin 0.4, Aspartate Amino Transf (AST/SGOT) 47H, Alanine Aminotransferase (ALT/SGPT) 99H, Alkaline Phosphatase 40, Total Protein 5.0L, Albumin 2.7L 09/15/18 05:17: White Blood Count 22.2H, Red Blood Count 4.02L, Hemoglobin 11.9L, Hematocrit 35L , Mean Corpuscular Volume 88, Mean Corpuscular Hemoglobin 30, Mean Corpuscular Hemoglobin Concent 34, Red Cell Distribution Width 14.9H, Platelet Count 399, Mean Platelet Volume 9.0, Neutrophils (%) (Auto) 86H, Lymphocytes (%) (Auto) 7L , Monocytes (%) (Auto) 7, Eosinophils (%) (Auto) 0, Basophils (%) (Auto) 0, Neutrophils # (Auto) 19.1H, Lymphocytes # (Auto) 1.5, Monocytes # (Auto) 1.6H, Eosinophils # (Auto) 0.0, Basophils # (Auto) 0.0 Microbiology 09/09/18 Blood Culture - Preliminary, Resulted No growth 09/09/18 MRSA Screen - Final, Complete MRSA not isolated Radiology NAME: SELENA JARAMILLO [facility] REC#: [id number] PT STATUS: ADM IN : 1945 PHYSICIAN: ILIA PERRY MD ADMIT DATE: 09/09/18/ICU Signed Date of Exam: 09/10/18 CHEST 1 VIEW, AP/PA ONLY INDICATION: Sepsis, pneumonia, COPD. TECHNIQUE: Frontal view of the chest. COMPARISON: 09/09/2018 FINDINGS: Lung volumes are large. There are airspace and interstitial opacities in the lung bases. The cardiac silhouette is normal in size. No pneumothorax or pleural effusion is seen. IMPRESSION: 1. Stable bibasilar pulmonary opacities, which are age-indeterminate. These may represent chronic scarring versus acute infiltrate. Dictated by: Dictated on workstation # [id number] Dict: 09/10/18 0803 Trans: 09/10/18 1041 Interpreted by: JEAN MARIE WASHINGTON MD Electronically signed by: JEAN MARIE WASHINGTON MD 09/10/18 1041 Assessment/Plan Assessment/Plan (1) Respiratory failure Status: Acute Assessment & Plan: Requiring vapotherm on admission. Improved this am and on 4 lpm nasal cannula. Suspect secondary to COPD exacerbation, possible pneumonia. Dr. Odonnell consulted, appreciate recommendations. CTA chest pending. 09/11 CTA chest with PE, see below. 09/14 -Patient overall is improving. He is now off Vapotherm. 09/15 -Overall patient continues to improve he is on 4 L nasal cannula oxygen. RT has attempted to decrease this to 3 L of nasal cannula oxygen but he is not quite ready. -We'll maintain him on Solu-Medrol 40 mg every 6 hours for now. -I spoke with patient as well as his son about the potential for needing oxygen at home. He was made aware that he needs to quit cigarettes but he has no desire to quit. Qualifiers: Qualified Codes: J96.01 - Acute respiratory failure with hypoxia (2) Severe sepsis Status: Resolved Assessment & Plan: Suspected secondary to pneumonia with respiratory failure and WBC elevated on admit. No elevation in lactic acid and no hypotension. CXR without clear evidence of pneumonia, started on cefepime from ER, will continue while blood cultures pending. 09/14 -Cefepime continues at 1 g every 6 hours. 09/15 -We'll check chest x-ray today (3) Pneumonia Status: Acute Assessment & Plan: Possible given leukocytosis and respiratory failure, however CXR not convincing. Continue cefepime for now, leukocytosis resolved. CT chest pending, blood cultures pending. 09/11 blood cx no significant growth to date, may consider d/c abx tomorrow 09/12 Blood cx still negative for pathogen, however given worsening respiratory status last night will continue abx. 09/15 -As mentioned chest x-ray will be performed today. Qualifiers: Qualified Codes: J18.1 - Lobar pneumonia, unspecified organism (4) Elevated troponin Status: Acute Assessment & Plan: Suspect related to hypoxia, Cardiology consulted, appreciate recommendations. (5) COPD exacerbation Status: Acute Assessment & Plan: IV solumedrol, duonebs. Dr. Odonnell consulted, appreciate recommendations. 09/14 -His white blood cell count is 20.3 and I suspect this is steroid effects due to the treatment of his COPD. 09/15 -Solu-Medrol continues at 40 mg every 6 hours. He will ultimately need to prednisone tapering upon dismissal (6) Pulmonary embolism Status: Acute Assessment & Plan: Started on enoxaparin therapeutic dosing per Dr. Odonnell. 09/14 -Patient continues with Lovenox 60 mg twice daily. 09/15 -I informed patient as well as his son that most likely he will need to be switched over to Xarelto within the next few days in preparation for home treatment of the PE. Qualifiers: (7) DVT prophylaxis Status: Acute Assessment & Plan: Enoxaparin (8) Discharge planning issues Status: Acute Assessment & Plan: Patient wanting to go home, discussed that his status is not currently safe for discharge, discussed with him and his family, if he does not improve, may want to consider palliative care consult. Clinical Quality Measures DVT/VTE Risk/Contraindication: Risk Factor Score Per Nursin RFS Level Per Nursing on Admit: 4+=Very High MIRI LOPEZ MD September 15, 2018 09:23
--- NOTE | 2018-09-15 10:22 | Diagnostic Imaging Report ---
PATIENT HISTORY: Bilateral atelectasis and pneumonitis. Shortness of air. Cough. TECHNIQUE: Two views of the chest. COMPARISON: 09/11/2018 FINDINGS: There are minimal bilateral pleural effusions with atelectasis. Aeration appears stable since the prior exam. The cardiac silhouette is normal in size. There is aortic atherosclerosis. There is no pneumothorax. There is exaggerated kyphosis of the thoracic spine with chronic compression deformities. IMPRESSION: 1. Minimal bilateral pleural effusions with atelectasis. No new consolidation is seen. Dictated by: Dictated on workstation # [id number]
[2018-09-15 12:00] VITALS: BP 114/56
[2018-09-15 16:00] VITALS: BP 109/58
[2018-09-15 20:00] VITALS: BP 105/66
[2018-09-15] MEDS: SIMvastatin 10 MG (ZOCOR) TAB PO SCH (20:41)
[2018-09-16] VITALS: BP 106/59
[2018-09-16] MEDS: RT-ALBUTEROL/IPRATROPIUM 3 ML (DUONEB) VIAL IH SCH ×6 (02:17→22:50)
[2018-09-16 04:00] VITALS: BP 126/61
[2018-09-16 05:05] LABS: BASOPHILS % (AUTO) 0 % (0-10); EOSINOPHILS % (AUTO) 0 % (0-10); HEMATOCRIT 34 % (40-54); HEMOGLOBIN 11.2 G/DL (13.3-17.7); LYMPHOCYTES # (AUTO) 1.3 X 10^3 (1.0-4.0); LYMPHOCYTES % (AUTO) 5 % (12-44); MEAN CORPUSCULAR HEMOGLOBIN 30 PG (25-34); MEAN CORPUSCULAR HGB CONC 33 G/DL (32-36); MEAN CORPUSCULAR VOLUME 88 FL (80-99); MEAN PLATELET VOLUME 9.2 FL (7.4-10.4); MONOCYTES # (AUTO) 1.6 X 10^3 (0.0-1.0); MONOCYTES % (AUTO) 7 % (0-12); NEUTROPHILS # (AUTO) 22.1 X 10^3 (1.8-7.8); NEUTROPHILS % (AUTO) 88 % (42-75); PLATELET COUNT 353 10^3/uL (130-400); RED CELL DISTRIBUTION WIDTH 14.8 % (10.0-14.5); WHITE BLOOD COUNT 25.1 10^3/uL (4.3-11.0)
[2018-09-16 05:24] LABS: ALANINE AMINOTRANSFERASE 132 U/L (0-55); ALBUMIN 2.6 GM/DL (3.2-4.5); ALKALINE PHOSPHATASE 37 U/L (40-136); BILIRUBIN,TOTAL 0.3 MG/DL (0.1-1.0); BUN/CREATININE RATIO 31; CALCIUM 8.6 MG/DL (8.5-10.1); CARBON DIOXIDE 23 MMOL/L (21-32); CHLORIDE 109 MMOL/L (98-107); CREATININE SERUM 0.94 MG/DL (0.60-1.30); GFR ESTIMATED > 60; GLUCOSE 146 MG/DL (70-105); POTASSIUM 4.3 MMOL/L (3.6-5.0); SODIUM 140 MMOL/L (135-145); TOTAL PROTEIN 4.7 GM/DL (6.4-8.2)
[2018-09-16] MEDS: methylPREDNISolone 40 MG/ML (Solu-MEDROL) VIAL IV SCH ×3 (05:26→17:09)
[2018-09-16] MEDS: CEFEPIME INJECTION 1,000 MG in WATER (STERILE) FOR INJECTION 10 ML IV SCH ×3 (05:26→17:09)
[2018-09-16 07:45] VITALS: BP 115/56
--- NOTE | 2018-09-16 08:46 | Progress Note-Cardiology ---
Cardiology SOAP Progress Note Subjective: Lying in bed. Family x1 at the bedside. States he feels good today. No c/o. Objective: I&O/Vital Signs 09/15/18 09/16/18 09/16/18 09/16/18 22:33 00:00 02:17 04:00 Temp 98.1 98.4 Pulse 64 68 Resp 20 20 B/P (MAP) 106/59 (75) 126/61 (82) Pulse Ox 96 97 96 95 O2 Delivery Nasal Cannula Nasal Cannula Nasal Cannula Nasal Cannula O2 Flow Rate 4.00 3.00 4.00 3.00 09/16/18 09/16/18 07:12 07:45 Temp 96.7 Pulse 69 Resp 20 B/P (MAP) 115/56 (75) Pulse Ox 93 95 O2 Delivery Nasal Cannula Nasal Cannula O2 Flow Rate 2.00 3.00 09/16/18 00:00 Intake Total 1270 ml Output Total 1295 ml Balance -25 ml Weight (Pounds): 131 Weight (Ounces): 5.0 Weight (Calculated Kilograms): 59.282941 Constitutional: AAO x 3, other (thin) Respiratory: No accessory muscle use, No respiratory distress; chest expansion is symmetric, chest is bilaterally symmetric, crackles (lower lobes), rhonchi ( scattered) Cardiovascular: regular rate-rhythm; No JVD; S1 and S2 Gastrointestional: No tender; soft, round, audible bowel sounds Extremities: no lower extremity edema bilateral Neurologic/Psychiatric: grossly intact, power is 5/5 both on sides Skin: No rash, No ulcerations Results/Procedures: Labs Laboratory Tests 09/16/18 05:00: White Blood Count 25.1H, Red Blood Count 3.79L, Hemoglobin 11.2L, Hematocrit 34L , Mean Corpuscular Volume 88, Mean Corpuscular Hemoglobin 30, Mean Corpuscular Hemoglobin Concent 33, Red Cell Distribution Width 14.8H, Platelet Count 353, Mean Platelet Volume 9.2, Neutrophils (%) (Auto) 88H, Lymphocytes (%) (Auto) 5L , Monocytes (%) (Auto) 7, Eosinophils (%) (Auto) 0, Basophils (%) (Auto) 0, Neutrophils # (Auto) 22.1H, Lymphocytes # (Auto) 1.3, Monocytes # (Auto) 1.6H, Eosinophils # (Auto) 0.0, Basophils # (Auto) 0.0, Sodium Level 140, Potassium Level 4.3, Chloride Level 109H, Carbon Dioxide Level 23, Anion Gap 8, Blood Urea Nitrogen 29H, Creatinine 0.94, Estimat Glomerular Filtration Rate > 60, BUN /Creatinine Ratio 31, Glucose Level 146H, Calcium Level 8.6, Corrected Calcium 9.7, Total Bilirubin 0.3, Aspartate Amino Transf (AST/SGOT) 57H, Alanine Aminotransferase (ALT/SGPT) 132H, Alkaline Phosphatase 37L, Total Protein 4.7L, Albumin 2.6L Microbiology 09/09/18 Blood Culture - Final, Complete No growth 09/09/18 MRSA Screen - Final, Complete MRSA not isolated A/P: Assessment: Elevated troponin, likely type 2 MS due to resp failure/sepsis Echo of : LVEF 60-65%, no regional wall motion abnormality, PASP within normal limits Pneumonia with sepsis - management per pulmonary services Mild acute diastolic CHF Liver enzyme elevation of undetermined etiology Acute exacerbation of COPD - management per pulmonary services Reported h/o CVA in 2005 - details unknown HLD - statin tx H/O "stomach cancer" approx 20 years ago - treated in [place] - details unknown Tobaccoism - cessation advised Plan: * Risk factor modification reviewed * Elevated liver enzymes of undetermined etiology, advise further work up * Hold statin for now * Mild acute diastolic CHF - tx with diuretics * Replace potassium * Monitor labs * Continue PT consult for strengthening Physician Assessment Physician Assessment Notes some weakness and tiredness, mod exertional shortness of breath, no cp Lungs: basal coarse and fine crackles, air entry diminished at the bases Cor: reg Ext: no c/c/e A&R * As documented in our note above that I updated (italics) and as noted below * Initiating low-dose diuretic therapy for mild, decom, ac, diastolic CHF * Monitor labs RAISA MONTERO BEE BREEDER September 16, 2018 08:46 KAISER LEDESMA [facility] September 16, 2018 09:31
[2018-09-16] MEDS ORDERED: FUROSEMIDE 20 MG (LASIX) TAB PO NR (09:30)
[2018-09-16] MEDS ORDERED: KCL 20 MEQ TAB (K-DUR) PO NR (09:30)
[2018-09-16] MEDS: ENOXAPARIN 60 MG/0.6 ML (LOVENOX) SYR SC SCH ×2 (10:06→20:42)
[2018-09-16] MEDS: ASPIRIN 81 MG CHEW (CHILDREN'S ASA) PO SCH (10:06)
--- NOTE | 2018-09-16 10:44 | Progress Note-Hospitalist ---
Subjective HPI/CC On Admission Date Seen by Provider: September 16, 2018 Time Seen by Provider: 10:00 Subjective/Events-last exam Pt doing well today Very hard of hearing making communication very difficult Does not use home oxygen at home Evaluated the pt for swing bed since this is his 7th midnight stay at the hospital Tolerating antibiotics well Nebulizer treatments ordered Eating and drinking well and bowels are moving Review of Systems Pulmonary: Dyspnea Focused Exam Time of Focused Exam: 22:02 Objective Exam Vital Signs Vital Signs Date Time Temp Pulse Resp B/P (MAP) Pulse Ox O2 Delivery O2 Flow Rate FiO2 09/16/18 19:23 97.7 85 16 111/70 (84) 97 Nasal Cannula 2.00 09/13/18 10:49 40 Capillary Refill : Less Than 3 Seconds General Appearance: No Apparent Distress, WD/WN, Chronically ill, Thin HEENT: PERRL/EOMI, Normal ENT Inspection Neck: Normal Inspection Respiratory: No Accessory Muscle Use, No Respiratory Distress, Crackles, Decreased Breath Sounds, Rhonci, Wheezing Cardiovascular: Regular Rate, Rhythm, No Edema, No Murmur Gastrointestinal: Normal Bowel Sounds, Non Tender, Soft Extremity: Normal Inspection, Non Tender, No Pedal Edema Neurologic/Psychiatric: Alert, Oriented x3, No Motor/Sensory Deficits, Normal 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 Assessment/Plan Assessment and Plan Assess & Plan/Chief Complaint Assessment: Pneumonia Sepsis AECOPD Presbycusis Plan: Monitor BP Swing bed? Poor prognosis Maintain O2 Diagnosis/Problems Diagnosis/Problems (1) Severe sepsis Status: Resolved Resolution Date/Time: 09/11/18 @ 16:16 (2) Pulmonary embolism Status: Acute Qualifiers: Chronicity: acute Acute cor pulmonale presence: without acute cor pulmonale (3) COPD exacerbation Status: Acute (4) Elevated troponin Status: Acute (5) Pneumonia Status: Acute Qualifiers: Pneumonia type: due to unspecified organism Laterality: bilateral Lung location: lower lobe of lung Qualified Codes: J18.1 - Lobar pneumonia, unspecified organism (6) Respiratory failure Status: Resolved Qualifiers: Chronicity: acute Respiratory failure complication: hypoxia Qualified Codes: J96.01 - Acute respiratory failure with hypoxia Resolution Date/Time: 09/16/18 @ 21:01 (7) Discharge planning issues Status: Acute (8) DVT prophylaxis Status: Acute Clinical Quality Measures DVT/VTE Risk/Contraindication: Risk Factor Score Per Nursin RFS Level Per Nursing on Admit: 4+=Very High NILAM MORSE DO September 16, 2018 10:44
[2018-09-16 11:51] VITALS: BP 120/64
--- NOTE | 2018-09-16 15:13 | Physical Therapy Progress Note ---
Therapy Progress Note PT treatment attempted in the morning and the afternoon. Patient refused therapy both times. Patient states that his left side hurts and he is too tired and "I just don't want to do it". Patient was educated on the benefits of therapy but he continued to refuse. Not even encouragement by his family member in the room would convince him to participate. Will try back in the morning. LUCAS MEAD PT September 16, 2018 15:13
--- NOTE | 2018-09-16 15:18 | Diagnostic Imaging Report ---
PROCEDURE: US abdomen complete. TECHNIQUE: Multiple real-time grayscale images were obtained over the abdomen in various projections. INDICATION: Elevated liver enzymes and sepsis. FINDINGS: The liver is normal in size at 14.7 cm. No discrete liver mass is identified. Gallbladder is patent and shows normal direction of flow. Gallbladder is severely contracted, limiting evaluation. Patient reports he had a recent meal. No definite biliary ductal dilatation is seen. Pancreas is poorly visualized due to bowel gas. Spleen is normal in size at 9.3 cm. Aorta and IVC are poorly visualized due to bowel gas. The right kidney appears to be small measuring 7.5 cm in length. Left kidney is 9.9 cm in length. No hydronephrosis is identified. There is no ascites. IMPRESSION: 1. Overall study is somewhat limited due to bowel gas. The gallbladder cannot be evaluated due to severe contraction from a recent meal. No other significant abnormality is seen. Dictated by: Dictated on workstation # [id number]
[2018-09-16 15:36] VITALS: BP 101/66
[2018-09-16 19:23] VITALS: BP 111/70
[2018-09-17 00:05] VITALS: BP 100/58
[2018-09-17] MEDS: CEFEPIME INJECTION 1,000 MG in WATER (STERILE) FOR INJECTION 10 ML IV SCH (00:09)
[2018-09-17] MEDS: methylPREDNISolone 40 MG/ML (Solu-MEDROL) VIAL IV SCH ×3 (00:09→11:49)
[2018-09-17] MEDS: RT-ALBUTEROL/IPRATROPIUM 3 ML (DUONEB) VIAL IH SCH ×6 (02:53→21:51)
[2018-09-17 05:00] VITALS: BP 109/64
[2018-09-17 05:10] LABS: BASOPHILS % (AUTO) 0 % (0-10); EOSINOPHILS % (AUTO) 0 % (0-10); HEMATOCRIT 29 % (40-54); HEMOGLOBIN 9.9 G/DL (13.3-17.7); LYMPHOCYTES # (AUTO) 1.2 X 10^3 (1.0-4.0); LYMPHOCYTES % (AUTO) 4 % (12-44); MEAN CORPUSCULAR HEMOGLOBIN 30 PG (25-34); MEAN CORPUSCULAR HGB CONC 34 G/DL (32-36); MEAN CORPUSCULAR VOLUME 89 FL (80-99); MEAN PLATELET VOLUME 9.1 FL (7.4-10.4); MONOCYTES # (AUTO) 2.2 X 10^3 (0.0-1.0); MONOCYTES % (AUTO) 7 % (0-12); NEUTROPHILS # (AUTO) 27.6 X 10^3 (1.8-7.8); NEUTROPHILS % (AUTO) 89 % (42-75); PLATELET COUNT 375 10^3/uL (130-400); RED CELL DISTRIBUTION WIDTH 14.8 % (10.0-14.5)
[2018-09-17 05:32] LABS: ALANINE AMINOTRANSFERASE 122 U/L (0-55); ALBUMIN 2.7 GM/DL (3.2-4.5); ALKALINE PHOSPHATASE 44 U/L (40-136); BILIRUBIN,TOTAL 0.4 MG/DL (0.1-1.0); BUN/CREATININE RATIO 33; CALCIUM 8.4 MG/DL (8.5-10.1); CARBON DIOXIDE 23 MMOL/L (21-32); CHLORIDE 105 MMOL/L (98-107); CREATININE SERUM 1.01 MG/DL (0.60-1.30); GFR ESTIMATED > 60; GLUCOSE 144 MG/DL (70-105); MAGNESIUM 2.2 MG/DL (1.8-2.4); POTASSIUM 4.2 MMOL/L (3.6-5.0); SODIUM 137 MMOL/L (135-145); TOTAL PROTEIN 4.9 GM/DL (6.4-8.2)
[2018-09-17 05:36] LABS: BAND NEUTROPHILS 4 %; LYMPHOCYTES % (MANUAL) 8 %; MONOCYTES % (MANUAL) 2 %; NEUTROPHILS % (MANUAL) 86 %; RBC MORPH NORMAL
[2018-09-17] MEDS: KCL 10 MEQ TAB (MICRO K) PO SCH (06:56)
[2018-09-17] MEDS: FUROSEMIDE 20 MG (LASIX) TAB PO SCH (06:56)
[2018-09-17 08:26] VITALS: BP 122/60
[2018-09-17] MEDS: ENOXAPARIN 60 MG/0.6 ML (LOVENOX) SYR SC SCH (08:38)
[2018-09-17] MEDS: ASPIRIN 81 MG CHEW (CHILDREN'S ASA) PO SCH (08:38)
--- NOTE | 2018-09-17 08:48 | Progress Note-Cardiology ---
Cardiology SOAP Progress Note Subjective: Lying in bed. States he wants to go home. No c/o CP, palpitations, dyspnea. C /O bruising to the abdomen d/t Lovenox injections. Son at the bedside. Objective: I&O/Vital Signs 09/17/18 09/17/18 09/17/18 09/17/18 02:53 05:00 07:32 08:00 Temp 97.6 Pulse 71 Resp 16 B/P (MAP) 109/64 (79) Pulse Ox 96 97 97 O2 Delivery High Flow N/C Nasal Cannula High Flow N/C Nasal Cannula O2 Flow Rate 2.00 2.00 2.00 2.00 09/17/18 09/17/18 08:26 10:55 Temp 97.4 Pulse 61 Resp 18 B/P (MAP) 122/60 (80) Pulse Ox 99 92 O2 Delivery Nasal Cannula High Flow N/C O2 Flow Rate 2.00 2.00 09/17/18 00:00 Intake Total 1310 ml Output Total 1300 ml Balance 10 ml Weight (Pounds): 131 Weight (Ounces): 5.0 Weight (Calculated Kilograms): 59.793085 Constitutional: AAO x 3, other (thin) Respiratory: No accessory muscle use, No respiratory distress; chest expansion is symmetric, chest is bilaterally symmetric, lungs clear to auscultation Cardiovascular: regular rate-rhythm; No JVD; S1 and S2 Gastrointestional: No tender; soft, round, audible bowel sounds Extremities: no lower extremity edema bilateral Neurologic/Psychiatric: grossly intact, power is 5/5 both on sides Skin: No rash, No ulcerations; other (Diffuse abdominal bruising) Results/Procedures: Labs Laboratory Tests 09/17/18 04:55: White Blood Count 31.0*H, Red Blood Count 3.29L, Hemoglobin 9.9L, Hematocrit 29L , Mean Corpuscular Volume 89, Mean Corpuscular Hemoglobin 30, Mean Corpuscular Hemoglobin Concent 34, Red Cell Distribution Width 14.8H, Platelet Count 375, Mean Platelet Volume 9.1, Neutrophils (%) (Auto) 89H, Lymphocytes (%) (Auto) 4L , Monocytes (%) (Auto) 7, Eosinophils (%) (Auto) 0, Basophils (%) (Auto) 0, Neutrophils # (Auto) 27.6H, Lymphocytes # (Auto) 1.2, Monocytes # (Auto) 2.2H, Eosinophils # (Auto) 0.0, Basophils # (Auto) 0.0, Neutrophils % (Manual) 86, Lymphocytes % (Manual) 8, Monocytes % (Manual) 2, Band Neutrophils 4, Blood Morphology Comment NORMAL, Sodium Level 137, Potassium Level 4.2, Chloride Level 105, Carbon Dioxide Level 23, Anion Gap 9, Blood Urea Nitrogen 33H, Creatinine 1.01, Estimat Glomerular Filtration Rate > 60, BUN/Creatinine Ratio 33, Glucose Level 144H, Calcium Level 8.4L, Corrected Calcium 9.4, Magnesium Level 2.2, Total Bilirubin 0.4, Aspartate Amino Transf (AST/SGOT) 40H, Alanine Aminotransferase (ALT/SGPT) 122H, Alkaline Phosphatase 44, B-Type Natriuretic Peptide 37.1, Total Protein 4.9L, Albumin 2.7L Microbiology 09/09/18 Blood Culture - Final, Complete No growth 09/09/18 MRSA Screen - Final, Complete MRSA not isolated Procedures NAME: SELENA JARAMILLO [facility] REC#: [id number] PT STATUS: ADM IN : 1945 PHYSICIAN: RAISA MONTERO ADMIT DATE: 09/09/18 Signed Date of Exam: 09/16/18 US ABDOMEN COMPLETE [id number] PROCEDURE: US abdomen complete. TECHNIQUE: Multiple real-time grayscale images were obtained over the abdomen in various projections. INDICATION: Elevated liver enzymes and sepsis. FINDINGS: The liver is normal in size at 14.7 cm. No discrete liver mass is identified. Gallbladder is patent and shows normal direction of flow. Gallbladder is severely contracted, limiting evaluation. Patient reports he had a recent meal. No definite biliary ductal dilatation is seen. Pancreas is poorly visualized due to bowel gas. Spleen is normal in size at 9.3 cm. Aorta and IVC are poorly visualized due to bowel gas. The right kidney appears to be small measuring 7.5 cm in length. Left kidney is 9.9 cm in length. No hydronephrosis is identified. There is no ascites. IMPRESSION: 1. Overall study is somewhat limited due to bowel gas. The gallbladder cannot be evaluated due to severe contraction from a recent meal. No other significant abnormality is seen. Dictated by: Dictated on workstation # [id number] Dict: 09/16/18 1447 Trans: 09/16/18 1540 Interpreted by: MATTHEW PEÑA MD Electronically signed by: MATTHEW PEÑA MD 09/16/18 1542 A/P: Assessment: Mild, acute diastolic CHF Elevated troponin, likely type 2 MO due to resp failure/sepsis Echo of : LVEF 60-65%, no regional wall motion abnormality, PASP within normal limits Pneumonia with sepsis - management per pulmonary services Liver enzyme elevation of undetermined etiology Acute exacerbation of COPD - management per pulmonary services Reported h/o CVA in 2005 - details unknown HLD - statin tx H/O "stomach cancer" approx 20 years ago - treated in [place] - details unknown Tobaccoism - cessation advised Plan: * Risk factor modification reviewed * Elevated liver enzymes of undetermined etiology, advise further work up - slightly better today * Hold statin for now * Mild acute diastolic CHF - tx with diuretics * Worsening leukocytosis - management per medical/pulmonary services * Monitor labs * Continue PT consult for strengthening Physician Assessment Physician Assessment Gen weakness and malaise No cp or palp or syncope or shortness of breath at rest Lungs: dec bs at bases Cor: reg Ext: no c/c/e A&R * As documented in our note above that I updated (italics) and as noted below * We added diuretics to control decomp CHF on 09/16/18 * Monitor labs RAISA MONTERO CONTINUITY PERSON September 17, 2018 08:48 KAISER LEDESMA MD FACP [facility] September 17, 2018 12:49
--- NOTE | 2018-09-17 09:58 | Progress Note-Hospitalist ---
Subjective HPI/CC On Admission Date Seen by Provider: September 17, 2018 Time Seen by Provider: 09:00 Subjective/Events-last exam Pt doing much better. Discharge planning with Dr. Odonnell will ensue because it appears he needs a vent to mask set-up. Coughing less. Denies any pain. Eating and drinking well. Needs home O2 evaluation Review of Systems General: Fatigue Focused Exam Time of Focused Exam: 22:02 Objective Exam Vital Signs Vital Signs Date Time Temp Pulse Resp B/P (MAP) Pulse Ox O2 Delivery O2 Flow Rate FiO2 09/17/18 20:00 Nasal Cannula 2.00 09/17/18 19:19 97 09/17/18 17:01 97.5 92 16 94/62 (73) 09/13/18 10:49 40 Capillary Refill : Less Than 3 Seconds General Appearance: No Apparent Distress, WD/WN, Chronically ill, Thin HEENT: PERRL/EOMI, Normal ENT Inspection Neck: Normal Inspection Respiratory: Chest Non Tender, No Accessory Muscle Use, No Respiratory Distress , Crackles, Decreased Breath Sounds Cardiovascular: Regular Rate, Rhythm, No Edema, No Murmur Gastrointestinal: Normal Bowel Sounds, Non Tender, Soft Extremity: Normal Inspection, Non Tender, No Pedal Edema Neurologic/Psychiatric: Alert, Oriented x3, No Motor/Sensory Deficits, Normal 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 Assessment/Plan Assessment and Plan Assess & Plan/Chief Complaint Assessment: Pneumonia Sepsis AECOPD Presbycusis Plan: Monitor BP HH at DC Poor [facility] Maintain O2 Diagnosis/Problems Diagnosis/Problems (1) Severe sepsis Status: Resolved Resolution Date/Time: 09/11/18 @ 16:16 (2) Pulmonary embolism Status: Acute Qualifiers: Chronicity: acute Acute cor pulmonale presence: without acute cor pulmonale (3) COPD exacerbation Status: Acute (4) Elevated troponin Status: Acute (5) Pneumonia Status: Acute Qualifiers: Pneumonia type: due to unspecified organism Laterality: bilateral Lung location: lower lobe of lung Qualified Codes: J18.1 - Lobar pneumonia, unspecified organism (6) Respiratory failure Status: Resolved Qualifiers: Chronicity: acute Respiratory failure complication: hypoxia Qualified Codes: J96.01 - Acute respiratory failure with hypoxia Resolution Date/Time: 09/16/18 @ 21:01 (7) Discharge planning issues Status: Acute (8) DVT prophylaxis Status: Acute Clinical Quality Measures DVT/VTE Risk/Contraindication: Risk Factor Score Per Nursin RFS Level Per Nursing on Admit: 4+=Very High NILAM MORSE DO September 17, 2018 09:58
--- NOTE | 2018-09-17 10:12 | Physical Therapy Progress Note ---
Therapy Progress Note Patient continues to refuse PT treatments. He says he just doesn't want to do it. Will check back in the afternoon. LUCAS MEAD PT September 17, 2018 10:12
--- NOTE | 2018-09-17 10:34 | Physical Therapy Daily Note ---
PT Daily Note-Current Subjective Nurse notified that patient has been refusing, she goes in and convinces him to participate. Patient is very CHIGNIK LAGOON and cant say if he has pain, his son who is in the room states that he has been having abdominal pain. Appearance Patient in recliner post tx with nurse call, phone, tray, son in room. Mental Status Patient Orientation: Person Attachments: Oxygen Transfers Therapy Code Descriptions/Definitions Functional Bradford Measure: 0=Not Assessed/NA 4=Minimal Assistance 1=Total Assistance 5=Supervision or Setup 2=Maximal Assistance 6=Modified Bradford 3=Moderate Assistance 7=Complete Bradford Therapy Quality Codes: 6 Independent with activity with or without an assistive device 5 Patient requires set up or clean up by helper. Patient completes activity by themselves 4 Supervision or touching assist (CGA). Belle provide cues , steadying assist 3 The helper provides less than half the effort to complete the activity 2 The helper provides more than half the effort to complete the activity 1 Dependent. The helper does all the effort to complete an activity 7 Patient refused to complete or attempt activity 9 The patient did not perform the activity before the current illness or injury 88 Not attempted due to Medical conditions or safety concerns Transfers (B, C, W/C) (FIM): 5 Scootin Rollin Supine to/from Sit: 5 Sit to/from Stand: 5 Bed to/from Chair: 5 Weight Bearing Right Lower Extremity: Right Full Weight Bearing Left Lower Extremity: Left Full Weight Bearing Gait Training Gait (FIM): 5 Distance: 200' Gait Level of Assist: 5 Gait Persons Needed: 1 Gait Assistive Device: FWW Slow but steady ambulation. Patient's legs seem very stiff and ambulates with knees fully extended at first but eventually he loosens up. Patient ambulates with increased hip external rotation. Exercises Seated Therapy Exercises: Long arc quads Seated Reps: 10 Patient only does a few exercises and says "that's it" and waves therapist away. Treatments bed mobility and transfers, ambulation, LE exercise Assessment Current Status: Poor Progress Patient has profoundly poor motivation. 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 Goals Time Frame: September 20, 2018 Transfers (B,C,W/C) (FIM): 7 Gait (FIM): 6 PT Plan Problem List Problem List: Activity Tolerance, Functional Strength, Safety, Balance, Gait, Transfer, Bed Mobility, ROM Treatment/Plan Treatment Plan: Continue Plan of Care Treatment Plan: Bed Mobility, Education, Functional Activity [place], Functional Strength, Gait, Safety, Therapeutic Exercise, Transfers Treatment Duration: September 20, 2018 Frequency: 6 times per week Estimated Hrs Per Day: .25 hour per day Patient and/or Family Agrees t: Yes Safety Risks/Education Patient Education: Gait Training, Transfer Techniques, Correct Positioning, Safety Issues Teaching Recipient: Patient Teaching Methods: Demonstration, Discussion Response to Teaching: Reinforcement Needed Time/GCodes Time In: 1012 Time Out: 1024 Total Billed Treatment Time: 12 Total Billed Treatment 1 visit GT 12' LUCAS MEAD PT September 17, 2018 10:34
--- NOTE | 2018-09-17 12:53 | Pulmonary Progress Note ---
Subjective Time Seen by a Provider: 13:12 Subjective/Events-last exam Pt appears improved. Sepsis Event Evaluation Height, Weight, BMI Height: 5'8.00" Weight: 131lbs. 5.0oz. 59.826562gj; 19.5 BMI Method:Stated Focused Exam Time of Focused Exam: 22:02 Exam Exam Vital Signs Date Time Temp Pulse Resp B/P (MAP) Pulse Ox O2 Delivery O2 Flow Rate FiO2 09/17/18 10:55 92 High Flow N/C 2.00 09/17/18 08:26 97.4 61 18 122/60 (80) 99 Nasal Cannula 2.00 09/17/18 08:00 Nasal Cannula 2.00 09/17/18 07:32 97 High Flow N/C 2.00 09/17/18 05:00 97.6 71 16 109/64 (79) 97 Nasal Cannula 2.00 09/17/18 02:53 96 High Flow N/C 2.00 09/17/18 00:05 97.3 69 18 100/58 (72) 97 Nasal Cannula 2.00 09/16/18 22:50 96 High Flow N/C 2.00 09/16/18 20:40 High Flow N/C 2.00 09/16/18 19:23 97.7 85 16 111/70 (84) 97 Nasal Cannula 2.00 09/16/18 19:00 96 High Flow N/C 2.00 09/16/18 15:36 96.6 75 14 101/66 (78) 99 Nasal Cannula 2.00 09/16/18 15:27 96 Nasal Cannula 2.00 I & O 09/17/18 07:00 Intake Total 1570 ml Output Total 1500 ml Balance 70 ml Height & Weight Height: 5'8.00" Weight: 131lbs. 5.0oz. 59.544234uj; 19.5 BMI Method:Stated General Appearance: No Apparent Distress, WD/WN, Chronically ill, Thin HEENT: PERRL/EOMI, Normal ENT Inspection Neck: Normal Inspection Respiratory: No Accessory Muscle Use, No Respiratory Distress, Crackles, Decreased Breath Sounds, Rhonci, Wheezing Cardiovascular: Regular Rate, Rhythm, No Edema, No Murmur Capillary Refill: Less Than 3 Seconds Peripheral Pulses: 2+ Radial Pulses (L) Gastrointestinal: normal bowel sounds, non tender, soft, no organomegaly Extremity: Normal Inspection, Non Tender, No Pedal Edema Neurologic/Psychiatric: Alert, Oriented x3, No Motor/Sensory Deficits, Normal Mood/Affect, 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 -SVNS with duonebQ4 -Advair Small RLL PE -Lovenox therapeutic dose -Will change to Xarelto 15mg PO BID x 21 days then 20mg daily x at least 6 mo. Pneumonia with severe sepsis - Cefepime - has stopped. NSTEMI - probably secondary to hypoxia -Cardiology consulted ELINA ALVAREZ DO September 17, 2018 12:53
--- NOTE | 2018-09-17 12:58 | NUR ---
SPOKE WITH DR. ALVAREZ NEW ORDERS FOR CHEST X-RAY FOR 09/18/2018 AT 0500, HE STATES HE WILL PUT ORDERS IN FOR PREDNISONE TAPER DOSE. THIS RN WILL CONT TO MONITOR THIS PATIENT.
--- NOTE | 2018-09-17 13:35 | NUR ---
REPORT TAKEN FROM VALERIE WOLFE AT THIS TIME, THIS RN WILL ASSUME CARE OF THIS PATIENT WHEN HE ARRIVES TO THIS FLOOR.
--- NOTE | 2018-09-17 14:20 | NUR ---
Pastoral care visit.
--- NOTE | 2018-09-17 14:41 | Diagnostic Imaging Report ---
INDICATION: Shortness of air. COMPARISON: 09/15/2018. FINDINGS: Single frontal radiographic view of the chest was obtained and again demonstrates probable small bibasilar effusions and associated bibasilar airspace disease. There is no pneumothorax. Remainder of the lungs are clear. Cardiac silhouette and pulmonary vasculature are within normal limits. Bony structures show no gross acute abnormalities. IMPRESSION: 1. Small bibasilar effusions. Dictated by: Dictated on workstation # [id number]
[2018-09-17 17:01] VITALS: BP 94/62
[2018-09-17] MEDS: RIVAROXABAN 15 MG TABLET (XARELTO) PO SCH (17:41)
[2018-09-17] MEDS: RT-ADVAIR HFA 115/21 MCG PER PUFF IH SCH (18:34)
--- NOTE | 2018-09-17 20:38 | NUR ---
Pt on 2lpm NC Spo2 97%. Pt placed on room air for 30 minutes and Spo2 83%, pt placed on 2lpm NC and Spo2 increases to 94% after 2 minutes. Addendum: 09/17/18 at 2038 by NICO AMAYA Amended: Links added.
[2018-09-17 23:33] VITALS: BP 106/69
[2018-09-18] MEDS: RT-ALBUTEROL/IPRATROPIUM 3 ML (DUONEB) VIAL IH SCH ×5 (02:15→21:36)
[2018-09-18 04:57] LABS: BASOPHILS % (AUTO) 0 % (0-10); EOSINOPHILS % (AUTO) 0 % (0-10); HEMATOCRIT 21 % (40-54); HEMOGLOBIN 7.2 G/DL (13.3-17.7); LYMPHOCYTES # (AUTO) 4.9 X 10^3 (1.0-4.0); LYMPHOCYTES % (AUTO) 12 % (12-44); MEAN CORPUSCULAR HEMOGLOBIN 30 PG (25-34); MEAN CORPUSCULAR HGB CONC 34 G/DL (32-36); MEAN CORPUSCULAR VOLUME 90 FL (80-99); MEAN PLATELET VOLUME 9.8 FL (7.4-10.4); MONOCYTES # (AUTO) 5.1 X 10^3 (0.0-1.0); MONOCYTES % (AUTO) 13 % (0-12); NEUTROPHILS # (AUTO) 29.4 X 10^3 (1.8-7.8); NEUTROPHILS % (AUTO) 75 % (42-75); PLATELET COUNT 350 10^3/uL (130-400); RED CELL DISTRIBUTION WIDTH 14.8 % (10.0-14.5)
[2018-09-18 04:58] LABS: WHITE BLOOD COUNT 39.4 10^3/uL (4.3-11.0)
--- NOTE | 2018-09-18 05:10 | NUR ---
contacted Dr Shaw regarding critical lab WBC 39.4. no further orders at this time
[2018-09-18 05:14] LABS: ALBUMIN 2.5 GM/DL (3.2-4.5); BILIRUBIN,TOTAL 0.3 MG/DL (0.1-1.0); CALCIUM 8.4 MG/DL (8.5-10.1); CREATININE SERUM 1.25 MG/DL (0.60-1.30); POTASSIUM 4.2 MMOL/L (3.6-5.0); TOTAL PROTEIN 4.2 GM/DL (6.4-8.2)
--- NOTE | 2018-09-18 06:22 | Pulmonary Progress Note ---
Subjective Time Seen by a Provider: 06:21 Subjective/Events-last exam PT started having nausea this AM. Last BM was 09/16. Dr. Shell was consulted this AM. Sepsis Event Evaluation Height, Weight, BMI Height: 8.00" Weight: 131lbs. 5.0oz. 59.540506ys; 19.5 BMI Method:Stated Focused Exam Time of Focused Exam: 22:02 Exam Exam Vital Signs Date Time Temp Pulse Resp B/P (MAP) Pulse Ox O2 Delivery O2 Flow Rate FiO2 09/18/18 02:16 93 High Flow N/C 2.00 09/17/18 23:33 97.4 115 14 106/69 (81) 98 High Flow N/C 2.00 09/17/18 21:51 97 High Flow N/C 2.00 09/17/18 20:00 Nasal Cannula 2.00 09/17/18 19:19 97 2.00 09/17/18 18:38 99 High Flow N/C 2.00 09/17/18 18:34 94 High Flow N/C 2.00 09/17/18 17:01 97.5 92 16 94/62 (73) 97 Nasal Cannula 2.00 09/17/18 15:34 98 High Flow N/C 2.00 09/17/18 10:55 92 High Flow N/C 2.00 09/17/18 08:26 97.4 61 18 122/60 (80) 99 Nasal Cannula 2.00 09/17/18 08:00 Nasal Cannula 2.00 09/17/18 07:32 97 High Flow N/C 2.00 I & O 09/18/18 07:00 Intake Total 2080 ml Output Total 1050 ml Balance 1030 ml Height & Weight Height: '8.00" Weight: 131lbs. 5.0oz. 59.717077uy; 19.5 BMI Method:Stated General Appearance: WD/WN, Anxious, Chronically ill, Mild Distress, Thin HEENT: PERRL/EOMI, Normal ENT Inspection Neck: Normal Inspection Respiratory: Chest Non Tender, No Accessory Muscle Use, No Respiratory Distress , Crackles, Decreased Breath Sounds Cardiovascular: Regular Rate, Rhythm, No Edema, No Murmur Capillary Refill: Less Than 3 Seconds Peripheral Pulses: 2+ Radial Pulses (L) Gastrointestinal: normal bowel sounds, non tender, soft, no organomegaly Extremity: Normal Inspection, Non Tender, No Pedal Edema Neurologic/Psychiatric: Alert, Oriented x3, No Motor/Sensory Deficits, Normal 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 Will probably need a low dose quick taper upon discharge. -SVNS with duonebQ4 -Advair Abdomen is distended r/o SBO -Check CT abd/pelvis with PO/IV contrast -Start IVF with D5NS at 100cc/hr -Surgery is consulted -NPO -Pt will probably need NG tube jemal if vomiting continues Anemia r/o retroperitoneal bleed -Hold Xeralto secondary to bleeding -Type cross and transfuse 1 unit of PRBC -PT was already barr Leukocytosis- probably secondary to steroids (No fever) -Start Rocephin and Flagyl for now -repeat UA -CXR reviewed -Hold prednisone Small segmental RLL PE -HOld anticoagulation secondary to active bleeding. Pneumonia with severe sepsis - Cefepime - has stopped. NSTEMI - probably secondary to hypoxia -Cardiology consulted ELINA ALVAREZ DO September 18, 2018 06:22
[2018-09-18] MEDS: RIVAROXABAN 15 MG TABLET (XARELTO) PO SCH (06:43)
[2018-09-18] MEDS: KCL 10 MEQ TAB (MICRO K) PO SCH (06:43)
[2018-09-18] MEDS: FUROSEMIDE 20 MG (LASIX) TAB PO SCH (06:43)
[2018-09-18 07:10] VITALS: BP 100/67
--- NOTE | 2018-09-18 07:10 | NUR ---
PT SITTING AT BEDSIDE VOMITED DARK EMESIS. DR MORSE NOTIFIED. ORDER RECEIVED TO CONSULT DR. SORIANO. DR ALVAREZ AT BEDSIDE. PT MADE NPO.
[2018-09-18] MEDS ORDERED: ONDANSETRON 4 MG/2 ML (SDV) Z0FRAN IVP PRN (07:45)
[2018-09-18 08:00] VITALS: BP 100/53
--- NOTE | 2018-09-18 08:28 | NUR ---
DR SORIANO NOTIFIED VIA PHONE OF CONSULT.
[2018-09-18] MEDS: RT-ADVAIR HFA 115/21 MCG PER PUFF IH SCH ×2 (08:29→21:36)
[2018-09-18] MEDS: metroNIDAZOLE 500MG/100ML IVPB 100 ML IV SCH ×3 (08:48→22:05)
[2018-09-18] MEDS: cefTRIAXone FOR IV USE 1,000 MG in WATER (STERILE) FOR INJECTION 10 ML IV SCH (08:48)
[2018-09-18] MEDS: D5 NS 1000 ML IV SOLUTION 1,000 ML IV SCH ×2 (08:49→18:58)
[2018-09-18] MEDS: ASPIRIN 81 MG CHEW (CHILDREN'S ASA) PO SCH (09:00)
[2018-09-18] MEDS ORDERED: predniSONE 10 MG TAB PO SCH (09:00)
--- NOTE | 2018-09-18 09:49 | Progress Note-Hospitalist ---
Subjective HPI/CC On Admission Date Seen by Provider: September 18, 2018 Time Seen by Provider: 09:30 Subjective/Events-last exam Had a large amount of emesis of 600cc prompting general surgery consult with Dr. Shell and Dr. Odonnell White count remains elevated at 35,000 Dr. Odonnell did start Rocephin and Flagyl IV fluids will be initiated and he has ordered one unit of blood to be given Will transition off anticoagulation due to the severe decline in his hgb Denies any pain Very hard of hearing only hears on the right side and that is very poor Overall prognosis very poor considering this is his 10th hospital day unsure how much longer will be required before he can go home but gastrointestinal issues must be resolved prior to DC Review of Systems Gastrointestinal: Nausea, Vomiting, Abdominal Pain Focused Exam Time of Focused Exam: 22:02 Objective Exam Vital Signs Vital Signs Date Time Temp Pulse Resp B/P (MAP) Pulse Ox O2 Delivery O2 Flow Rate FiO2 09/18/18 16:55 98.0 90 22 93/59 (70) 97 Nasal Cannula 2.00 09/13/18 10:49 40 Capillary Refill : Less Than 3 Seconds General Appearance: WD/WN, Anxious, Chronically ill, Mild Distress, Thin HEENT: PERRL/EOMI, Normal ENT Inspection Neck: Normal Inspection Respiratory: Chest Non Tender, No Accessory Muscle Use, No Respiratory Distress , Crackles, Decreased Breath Sounds Cardiovascular: Regular Rate, Rhythm, No Edema, No Murmur Gastrointestinal: Normal Bowel Sounds, Non Tender, Soft Extremity: Normal Inspection, Non Tender, No Pedal Edema Neurologic/Psychiatric: Alert, Oriented x3, No Motor/Sensory Deficits, Normal Mood/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 Assessment/Plan Assessment and Plan Assess & Plan/Chief Complaint Assessment: Vomiting Anemia acute blood loss type Pneumonia Sepsis AECOPD Presbycusis Plan: Monitor BP HH at DC Poor prognosis manager terminal Maintain O2 Consult Dr Odonnell and general surgery may need a NGT Check CT scan 1 unit of blood Diagnosis/Problems Diagnosis/Problems (1) Severe sepsis Status: Resolved Resolution Date/Time: 09/11/18 @ 16:16 (2) Pulmonary embolism Status: Acute Qualifiers: Chronicity: acute Acute cor pulmonale presence: without acute cor pulmonale (3) COPD exacerbation Status: Acute (4) Elevated troponin Status: Acute (5) Pneumonia Status: Acute Qualifiers: Pneumonia type: due to unspecified organism Laterality: bilateral Lung location: lower lobe of lung Qualified Codes: J18.1 - Lobar pneumonia, unspecified organism (6) Respiratory failure Status: Resolved Qualifiers: Chronicity: acute Respiratory failure complication: hypoxia Qualified Codes: J96.01 - Acute respiratory failure with hypoxia Resolution Date/Time: 09/16/18 @ 21:01 (7) Discharge planning issues Status: Acute (8) DVT prophylaxis Status: Acute Clinical Quality Measures DVT/VTE Risk/Contraindication: Risk Factor Score Per Nursin RFS Level Per Nursing on Admit: 4+=Very High NILAM MORSE DO September 18, 2018 09:49
--- NOTE | 2018-09-18 09:58 | NUR ---
CM/SS. Patient has had a change in status and remains acute. RT home O2 testing is positive for continuous O2 need, will coordinate when patient is medically stable and ready for discharge. HHC: [employer] has recommended HHC and this has been discussed with patient who has refused that service thus far. Will continue to follow and also discuss with patient's son whom he resides with. DME: New home O2 anticipated.
--- NOTE | 2018-09-18 10:55 | Physical Therapy Progress Note ---
Therapy Progress Note Patient on hold today due to medical issues. Currently getting CT done. LUCAS MEAD PT September 18, 2018 10:55
[2018-09-18] MEDS ORDERED: NS IV 500 ML 500 ML ONE ×2 (11:13→12:33)
--- NOTE | 2018-09-18 11:32 | Diagnostic Imaging Report ---
INDICATION: Previous PE. TIME OF EXAMINATION: 11:09 AM. COMPARISON: Correlation is made with the prior study of one day earlier. FINDINGS: The heart size is stable. The basilar densities are unchanged. The mid and upper lung h[place]josa are clear. The pulmonary vascularity is unremarkable. There is no effusion or pneumothorax. IMPRESSION: Stable chest since one day earlier. Dictated by: Dictated on workstation # [id number]
--- NOTE | 2018-09-18 11:35 | Diagnostic Imaging Report ---
PROCEDURE: CT abdomen and pelvis with contrast. TECHNIQUE: Multiple contiguous axial images were obtained through the abdomen and pelvis after administration of intravenous contrast. Auto Exposure Controls were utilized during the CT exam to meet ALARA standards for radiation dose reduction. INDICATION: Vomiting. No prior studies are available for comparison. FINDINGS: Chronic appearing infiltrate bilateral lower lobes are noted. No discrete liver mass is seen. No biliary ductal dilatation is identified. The pancreas and spleen are unremarkable. No adrenal mass is seen. Right kidney is atrophic. Left kidney is unremarkable. There is no hydronephrosis. Aorta is non-aneurysmal. The bowel loops are normal caliber. No obstruction is seen. There is no evidence of intraperitoneal or retroperitoneal hemorrhage. There is significant thickening to the abdominal wall on the left side. The left rectus muscle as well as left flank musculature is markedly thickened consistent with intramuscular hematomas. This is new since the CT chest study from 09/10/2018. No active extravasation is seen. Bladder contains a small amount of gas perhaps from recent instrumentation. Bony structures are nonacute. IMPRESSION: 1. Development of abdominal wall hematoma on the left. No active extravasation is seen at this time. No intraperitoneal or retroperitoneal hemorrhage is detected. No bowel obstruction is identified. Results were discussed with Dr. Odonnell prior to this dictation. Dictated by: Dictated on workstation # [id number]
[2018-09-18 11:38] VITALS: BP 106/46
[2018-09-18 11:58] VITALS: BP 94/55
--- NOTE | 2018-09-18 12:11 | Conscious Sedation/ASA ---
Conscious Sedation Pre-Proced Time 12:00 ASA Score 2 For ASA 3 and 4: Consider anesthesia and medical clearance. Also, for patients with a history of failed moderate sedation consider anesthesia. Airway Lungs Heart ASA score ASA 1: a normal healthy patient ASA 2: a patient with a mild systemic disease (mid diabetes, controlled hypertension, obesity ASA 3: a patient with a severe systemic disease that limits activity (angina , COPD, prior Myocardial infarction) ASA 4: a patient with an incapacitating disease that is a constant threat to life (CHF, renal failure) ASA 5: a moribund patient not expected to survive 24 hrs. (ruptured aneurysm) ASA 6: a declared brain- patient whose organs are being harvested. For emergent operations, add the letter E after the classification Mallampati Classification Grade 2 Sedation Plan Analgesia, Amnesia, Plan communicated to team members, Discussed options with patient/fam, Discussed risks with patient/fam The patient is an appropriate candidate to undergo the planned procedure, sedation, and anesthesia. The patient immediately re-assessed prior to indication. TESSA SORIANO MD September 18, 2018 12:11
--- NOTE | 2018-09-18 12:12 | Progress Note-Pre Operative ---
Pre-Operative Progress Note H&P Reviewed The H&P was reviewed, patient examined and no changes noted. Date Seen by Provider: September 18, 2018 Time Seen by Provider: 12:00 Date H&P Reviewed: September 18, 2018 Time H&P Reviewed: 12:00 Pre-Operative Diagnosis: coffee ground emesis TESSA SORIANO MD September 18, 2018 12:12
[2018-09-18] MEDS: fentaNYL INJECTION 100 MCG/2 ML AMP IVP PRN ×2 (12:45→12:55)
[2018-09-18] MEDS ORDERED: fentaNYL INJECTION 100 MCG/2 ML AMP ONE (12:46)
[2018-09-18] MEDS ORDERED: LIDOCAINE JELLY 2% 6 ML SYRINGE ONE (12:46)
[2018-09-18] MEDS ORDERED: MIDAZOLAM 2 MG/2 ML (VERSED) VIAL ONE ×2 (12:47)
[2018-09-18] MEDS ORDERED: HURRICAINE EXT TUBE (BENZOCAINE) ONE (12:47)
--- NOTE | 2018-09-18 13:24 | Progress Note-Cardiology ---
Cardiology SOAP Progress Note Subjective: Marked weakness N/V this am, including coffee-ground emesis Objective: I&O/Vital Signs 09/18/18 09/18/18 09/18/18 09/18/18 02:16 07:10 08:00 08:30 Temp 97.9 98.9 Pulse 106 114 Resp 20 16 B/P (MAP) 100/67 (78) 100/53 (69) Pulse Ox 93 95 98 94 O2 Delivery High Flow N/C Room Air High Flow N/C High Flow N/C O2 Flow Rate 2.00 2.00 2.00 09/18/18 09/18/18 09/18/18 09/18/18 08:30 08:32 11:35 11:38 Temp 97.5 Pulse 110 Resp 16 B/P (MAP) 106/46 Pulse Ox 94 93 96 O2 Delivery High Flow N/C High Flow N/C High Flow N/C High Flow N/C O2 Flow Rate 2.00 2.00 2.00 2.00 09/18/18 11:58 Temp 97.0 Pulse 113 Resp 16 B/P (MAP) 94/55 Pulse Ox 93 O2 Delivery High Flow N/C O2 Flow Rate 2.00 09/18/18 00:00 Intake Total 1680 ml Output Total 1050 ml Balance 630 ml Weight (Pounds): 131 Weight (Ounces): 5.0 Weight (Calculated Kilograms): 59.010504 Constitutional: AAO x 3, other (thin) Respiratory: No accessory muscle use, No respiratory distress; chest expansion is symmetric, chest is bilaterally symmetric, lungs clear to auscultation Cardiovascular: regular rate-rhythm; No JVD; S1 and S2 Gastrointestional: No tender; soft, round, audible bowel sounds Extremities: no lower extremity edema bilateral Neurologic/Psychiatric: grossly intact, power is 5/5 both on sides Skin: No rash, No ulcerations; other (Diffuse abdominal bruising) Results/Procedures: Labs Laboratory Tests 09/18/18 04:50: White Blood Count 39.4*H, Red Blood Count 2.37L, Hemoglobin 7.2#L, Hematocrit 21L, Mean Corpuscular Volume 90, Mean Corpuscular Hemoglobin 30, Mean Corpuscular Hemoglobin Concent 34, Red Cell Distribution Width 14.8H, Platelet Count 350, Mean Platelet Volume 9.8, Neutrophils (%) (Auto) 75, Lymphocytes (%) (Auto) 12, Monocytes (%) (Auto) 13H, Eosinophils (%) (Auto) 0, Basophils (%) ( Auto) 0, Neutrophils # (Auto) 29.4H, Lymphocytes # (Auto) 4.9H, Monocytes # ( Auto) 5.1H, Eosinophils # (Auto) 0.0, Basophils # (Auto) 0.0, Sodium Level 139, Potassium Level 4.2, Chloride Level 105, Carbon Dioxide Level 25, Anion Gap 9, Blood Urea Nitrogen 51H, Creatinine 1.25, Estimat Glomerular Filtration Rate 56 , BUN/Creatinine Ratio 41, Glucose Level 150H, Calcium Level 8.4L, Corrected Calcium 9.6, Total Bilirubin 0.3, Aspartate Amino Transf (AST/SGOT) 31, Alanine Aminotransferase (ALT/SGPT) 111H, Alkaline Phosphatase 31L, Total Protein 4.2L, Albumin 2.5L Microbiology 09/09/18 Blood Culture - Final, Complete No growth 09/09/18 MRSA Screen - Final, Complete MRSA not isolated Laboratory Tests 09/17/18 04:55 09/18/18 04:50 A/P: Assessment: GI bleed (coffee-ground emesis) and blood loss anemia, being managed by Med and Surg Svces Mild, acute diastolic CHF Elevated troponin, likely type 2 GA due to resp failure/sepsis Echo of : LVEF 60-65%, no regional wall motion abnormality, PASP within normal limits Pneumonia with sepsis - management per pulmonary services Liver enzyme elevation of undetermined etiology Acute exacerbation of COPD - management per pulmonary services Reported h/o CVA in 2005 - details unknown HLD - statin tx H/O "stomach cancer" approx 20 years ago - treated in [place] - details unknown Tobaccoism - cessation advised Plan: * Worsening of clinical status * Hold OAC until source of bleeding found and treated * Treat anemia * Monitor labs * I spoke with him and his son and answered CV-related questions KAISER LEDESMA MD FACP FAC CCDS September 18, 2018 13:24
[2018-09-18] MEDS ORDERED: MIDAZOLAM 2 MG/2 ML (VERSED) VIAL IVP PRN (13:30)
[2018-09-18] MEDS ORDERED: HURRICAINE EXT TUBE (BENZOCAINE) XX ONE (13:45)
[2018-09-18] MEDS ORDERED: LIDOCAINE JELLY 2% 6 ML SYRINGE TOP ONE (13:45)
--- NOTE | 2018-09-18 13:47 | Progress Note-Post Operative ---
Post-Operative Progess Note Surgeon (s)/Physical Therapy Attendant (s) Surgeon TESSA SORIANO MD Physical Therapy Attendant: none Pre-Operative Diagnosis coffee ground emesis Post-Operative Diagnosis severe esophagitis/candidiasis, small HH(1cm), moderate gastritis, old blood stomach, no active bleed. Procedure & Operative Findings Date of Procedure 09/18/18 Procedure Performed/Findings EGD with bx and brushings Anesthesia Type cs Estimated Blood Loss Estimated blood loss (mL): minimal Specimens/Packing Specimens Removed ge jxn, antrum, mid-esophageal brushings. TESSA SORIANO MD September 18, 2018 13:47
[2018-09-18 13:50] VITALS: BP 114/55
[2018-09-18] MEDS ORDERED: NS IV 500 ML 500 ML IV ONE (14:00)
[2018-09-18] MEDS ORDERED: FLUCONAZOLE 200 MG/100 ML 100 ML IV NR (14:00)
--- NOTE | 2018-09-18 14:00 | NUR ---
PT BACK TO ROOM FROM RECOVERY. TRANSFUSION COMPLETED DURING EGD. PT DENIES ANY PAIN. VS OBTAINED. OXYGEN ON AT 2L. SON AT BEDSIDE. CALL LIGHT WITHIN REACH.
--- NOTE | 2018-09-18 14:02 | CONSULTATION REPORT ---
DATE OF SERVICE: 09/18/2018 ATTENDING PRIMARY CARE PHYSICIAN: Gayatri Gross MD HISTORY OF PRESENT ILLNESS: The patient is a 73-year-old male who was brought to the Emergency Department due to shortness of breath and decreased oxygen saturations in the 60% range. He does have a significant past medical history including COPD and has had issues with exacerbation of COPD in the past. Before admission, he had been having some cough and symptoms are related to an upper respiratory infection. He received the majority of his medical care at the [facility]. Upon admission, the patient was also found to have elevated white count consistent with some form of sepsis. He was medically treated and improved slightly; however, did have an increase in leukocytosis today as well as an episode of coffee ground emesis. Upon further questioning, he reports that he has had some issues with heartburn, reflux as well as acid indigestion and does have risk factors including smoking as well as taking in significant amounts of caffeinated beverages daily. PAST MEDICAL HISTORY: COPD, history of prostate cancer, hypercholesterolemia. PAST SURGICAL HISTORY: Prostate surgery. ALLERGIES: PENICILLIN. MEDICATIONS: Lisinopril 10 mg daily, albuterol metered dose inhaler 1 puff every 4 hours p.r.n., aspirin 81 mg daily. SOCIAL HISTORY: Positive smoke 60 pack years. Negative alcohol. FAMILY HISTORY: Noncontributory. VITAL SIGNS: Temperature 97.0, blood pressure 94/55, pulse 113, respirations 16, pulse ox 93% on 2 liters nasal cannula. REVIEW OF SYSTEMS: A slightly thin-appearing male who is awake, alert and is hard of hearing; however, is coherent. He is not experiencing any shortness of breath or difficulty breathing. He does have occasional cough as well as sputum production. This morning he did have an episode of coffee ground emesis. No hematemesis. No red blood per rectum, no dark tarry stools; however, he has not had a bowel movement for approximately one week. No recent fever, chills, no recent inadvertent weight loss. All other review of systems negative. PHYSICAL EXAMINATION: CHEST: Scattered expiratory wheezes bilaterally. HEART: Regular, no murmurs. EXTREMITIES: No lower extremity edema, negative Homans sign. HEENT: No scleral icterus. NECK: No cervical lymphadenopathy. ABDOMEN: Soft, nontender, nondistended. SKIN: Warm, dry. LABORATORY DATA: WBC 39.4, hemoglobin 7.2, hematocrit 21, platelets 350, BUN 51, creatinine 1.25. ASSESSMENT AND PLAN: A 73-year-old male with a coffee ground emesis and anemia as well as a history of COPD exacerbation and a significant leukocytosis. We will proceed with an EGD as well as any pertinent intervention as well as biopsies as appropriate. Job ID: [id number] DocumentID: [id number] Dictated Date: 09/18/2018 13:42:04 Railroad Car Inspector Date: 09/18/2018 14:01:28 Dictated By: TESSA SORIANO MD
[2018-09-18] MEDS: SUCRALFATE 1 GM (CARAFATE) TAB PO SCH ×2 (15:25→22:04)
[2018-09-18 15:55] LABS: BILIRUBIN,URINE NEGATIVE (NEGATIVE); CLARITY,URINE SLIGHTLY CLOUDY; COLOR,URINE YELLOW; GLUCOSE, URINE (UA) NEGATIVE (NEGATIVE); KETONES,URINE NEGATIVE (NEGATIVE); LEUKOCYTE ESTERASE ,URINE NEGATIVE (NEGATIVE); NITRITE,URINE NEGATIVE (NEGATIVE); PH,URINE 5 (5-9); PROTEIN,URINE 2+ (NEGATIVE); UROBILINOGEN,URINE NORMAL (NORMAL)
[2018-09-18 16:08] LABS: BACTERIA,URINE NEGATIVE /HPF; RBC,URINE RARE /HPF; WBC,URINE 0-2 /HPF
[2018-09-18 16:55] VITALS: BP 93/59
--- NOTE | 2018-09-18 20:44 | OPERATIVE REPORT ---
DATE OF SERVICE: 09/18/2018 DATE OF ADMISSION: 09/09/2018. ATTENDING PRIMARY CARE PHYSICIAN: Dr. Gayatri Gross. PREOPERATIVE DIAGNOSES: Coffee ground emesis and anemia. POSTOPERATIVE DIAGNOSES: Severe esophagitis with whitish plaques consistent with either an esophageal candidiasis versus an acid induced esophagitis. Brushings were taken for acid fast bacillus as well as fungal cultures. There was a small hiatal hernia and a moderate gastritis. No distal obstructions and no active bleeding at this time. PROCEDURE: EGD with biopsy. SURGEON: Tessa Soriano MD ANESTHESIA: Conscious sedation. ESTIMATED BLOOD LOSS: Minimal. FINDINGS: Severe esophagitis with whitish plaques consistent with either an esophageal candidiasis versus an acid induced esophagitis. Brushings were taken for acid fast bacillus as well as fungal cultures. There was a small hiatal hernia and a moderate gastritis. No distal obstructions and no active bleeding at this time. DISPOSITION: The patient tolerated the procedure well. INDICATIONS: The patient is a 73-year-old male, who was admitted for exacerbation of COPD as well as sepsis. He was resuscitated with IV fluids as well as antibiotics; however, no exact source of the sepsis could be identified. He was doing well; however, he did have elevation of white count today as well as found to be anemic with a hemoglobin of 7.2 and early this morning, he did have an episode of coffee ground emesis. Upon further questioning, he does report some level of gastroesophageal reflux disease as well as peptic ulcer disease in the past. DESCRIPTION OF PROCEDURE: The patient was brought to the endoscopy suite, laid in the left lateral decubitus position. After adequate IV pain and sedating medications and conscious sedation anesthesia, the mouthpiece was applied. The endoscope was placed into the mouth, visualizing the pharynx and hypopharyngeal region. Vocal cords, epiglottis and vallecula were identified and appeared to be normal. The endoscope was then gently intubated in the esophageal opening and esophagus was insufflated. Endoscope was then advanced through the esophagus where a significant esophagitis was identified throughout the first, second and third portions of the esophagus with whitish plaques identified as well. There was some old coffee ground emesis within this region as well. This most likely represents an esophageal candidiasis; however, we cannot rule out an acid reflux esophagitis as well. Brushings were taken of the esophagus and sent for AFB and culture and sensitivity. The endoscope was then advanced to the GE junction where reflux esophagitis between stage II and III identified. A biopsy was taken with forceps with visualization of good hemostasis. The endoscope was then advanced in the stomach and the endoscope retroflexed visualizing a small hiatal hernia, approximately 1 cm in size. There was a moderate severity gastritis. There were no formal ulcers, polyps or any neoplasms identified throughout the stomach. A biopsy was taken of the antrum to rule out H. pylori with visualization of good hemostasis. The endoscope was then advanced to the pylorus and the first and second portion of duodenum, which appeared normal with no ulcerations or any distal obstructions. The endoscope was then slowly withdrawn while taking a second look and suctioning of residual air with no additional findings. The patient tolerated the procedure well. We will recommend the necessary lifestyle and diet accommodation including small and more frequent meals, avoidance of eating at night as well as head elevation while lying supine. We will also treat as if he does have candidiasis and await the culture results and start him on Diflucan. If he is already not on a proton pump inhibitor, we will start this and then also add Carafate 1 gram q.i.d. Job ID: [id number] DocumentID: [id number] Dictated Date: 09/18/2018 13:23:37 Bowling Ball Grader Date: 09/18/2018 20:43:21 Dictated By: TESSA SORIANO MD
[2018-09-18] MEDS ORDERED: MAGNESIUM CITRATE 300 ML BTL PO ONE (21:00)
[2018-09-18] MEDS: PANTOPRAZOLE 40 MG (PROTONIX) VIAL IV SCH (22:05)
[2018-09-19] VITALS (9 sets, daily range): BP systolic 96–120; BP diastolic 51–65
[2018-09-19] MEDS: RT-ALBUTEROL/IPRATROPIUM 3 ML (DUONEB) VIAL IH SCH ×5 (01:10→22:39)
[2018-09-19] MEDS: D5 NS 1000 ML IV SOLUTION 1,000 ML IV SCH ×3 (02:27→17:09)
[2018-09-19] MEDS: metroNIDAZOLE 500MG/100ML IVPB 100 ML IV SCH ×3 (06:37→21:51)
[2018-09-19] MEDS: FUROSEMIDE 20 MG (LASIX) TAB PO SCH (06:38)
[2018-09-19] MEDS: SUCRALFATE 1 GM (CARAFATE) TAB PO SCH ×4 (06:38→20:23)
[2018-09-19] MEDS: KCL 10 MEQ TAB (MICRO K) PO SCH (06:38)
[2018-09-19 07:23] LABS: BASOPHILS % (AUTO) 0 % (0-10); EOSINOPHILS % (AUTO) 0 % (0-10); LYMPHOCYTES # (AUTO) 2.4 X 10^3 (1.0-4.0); LYMPHOCYTES % (AUTO) 8 % (12-44); MEAN CORPUSCULAR HEMOGLOBIN 29 PG (25-34); MEAN CORPUSCULAR HGB CONC 33 G/DL (32-36); MEAN CORPUSCULAR VOLUME 89 FL (80-99); MEAN PLATELET VOLUME 10.1 FL (7.4-10.4); MONOCYTES # (AUTO) 2.6 X 10^3 (0.0-1.0); MONOCYTES % (AUTO) 9 % (0-12); NEUTROPHILS % (AUTO) 83 % (42-75); PLATELET COUNT 239 10^3/uL (130-400); RED CELL DISTRIBUTION WIDTH 15.5 % (10.0-14.5)
[2018-09-19 07:30] LABS: HEMATOCRIT 20 % (40-54); HEMOGLOBIN 6.4 G/DL (13.3-17.7); WHITE BLOOD COUNT 30.1 10^3/uL (4.3-11.0)
--- NOTE | 2018-09-19 07:41 | NUR ---
0729: CALL FROM LAB CRITICAL RESULTS: WBC 30.1; HGB 6.4; HCT 19.5. CONTACTED DR MORSE WITH RESULTS. DEFERRED TO DR ALVAREZ LEFT MESSAGE FOR DR ALVAREZ.
[2018-09-19 07:50] LABS: ALBUMIN 2.2 GM/DL (3.2-4.5); BILIRUBIN,TOTAL 0.3 MG/DL (0.1-1.0); CALCIUM 7.9 MG/DL (8.5-10.1); CREATININE SERUM 1.18 MG/DL (0.60-1.30); POTASSIUM 3.8 MMOL/L (3.6-5.0); TOTAL PROTEIN 3.7 GM/DL (6.4-8.2)
--- NOTE | 2018-09-19 08:49 | Physical Therapy Progress Note ---
Therapy Progress Note Patient has a low hemoglobin level of 6.4 and is going to be getting blood this morning. Will check back in the afternoon. LUCAS MEAD PT September 19, 2018 08:49
[2018-09-19] MEDS: FLUCONAZOLE 200 MG/100 ML 50 ML, EMPTY IV BAG (PVC) 1 EA IV SCH ×2 (09:50)
[2018-09-19] MEDS: PANTOPRAZOLE 40 MG (PROTONIX) VIAL IV SCH ×2 (09:50→20:23)
[2018-09-19] MEDS: cefTRIAXone FOR IV USE 1,000 MG in WATER (STERILE) FOR INJECTION 10 ML IV SCH (09:50)
[2018-09-19] MEDS: ASPIRIN 81 MG CHEW (CHILDREN'S ASA) PO SCH (09:50)
--- NOTE | 2018-09-19 10:16 | Progress Note-Hospitalist ---
Subjective HPI/CC On Admission Date Seen by Provider: September 19, 2018 Time Seen by Provider: 09:00 Subjective/Events-last exam Hgb is decreasing again to 6.4 Will order [address] Pagan evaluated him at the same time as I did and is aware of the need to hold anti coagulation Lungs sound really good Maintain on oxygen Family at the bedside Very difficult to communicate due to severe hard of hearing Denies any pain Lovenox injection hematomas reassessed Dr. Shell consulted and made aware of declining hgb per my request via nursing staff Meghann Review of Systems General: Fatigue Gastrointestinal: Abdominal Pain Focused Exam Time of Focused Exam: 22:02 Objective Exam Vital Signs Vital Signs Date Time Temp Pulse Resp B/P (MAP) Pulse Ox O2 Delivery O2 Flow Rate FiO2 09/19/18 19:54 Nasal Cannula 2.00 09/19/18 19:16 95 09/19/18 16:59 97.8 76 22 100/55 (70) 09/13/18 10:49 40 Capillary Refill : Less Than 3 Seconds General Appearance: No Apparent Distress, WD/WN, Anxious, Chronically ill, Thin HEENT: PERRL/EOMI, Normal ENT Inspection Neck: Full Range of Motion, Normal Inspection, Non Tender, Supple Respiratory: Chest Non Tender, Lungs Clear, Normal Breath Sounds, No Accessory Muscle Use, No Respiratory Distress Cardiovascular: Regular Rate, Rhythm, No Edema, No Murmur Gastrointestinal: Normal Bowel Sounds, Non Tender, Soft Extremity: Normal Inspection, Non Tender, No Pedal Edema Neurologic/Psychiatric: Alert, Oriented x3, No Motor/Sensory Deficits, Normal Mood/Affect, area safety manager II-XII Norm as Tested Skin: Normal Color, Warm/Dry Lymphatic: No Adenopathy Results/Procedures Lab Laboratory Tests 09/19/18 06:45 Patient resulted labs reviewed. Assessment/Plan Assessment and Plan Assess & Plan/Chief Complaint Assessment: Vomiting now resolved Anemia acute blood loss type from abdominal wall hematoma Pneumonia Sepsis AECOPD Presbycusis Leukocytosis Plan: Monitor BP Poor prognosis detention Maintain O2 Consult Dr Odonnell and general surgery and they are appreciated Checked CT scan Give blood transfusions Diagnosis/Problems Diagnosis/Problems (1) Severe sepsis Status: Resolved Resolution Date/Time: 09/11/18 @ 16:16 (2) Pulmonary embolism Status: Acute Qualifiers: Chronicity: acute Acute cor pulmonale presence: without acute cor pulmonale (3) COPD exacerbation Status: Acute (4) Elevated troponin Status: Acute (5) Pneumonia Status: Acute Qualifiers: Pneumonia type: due to unspecified organism Laterality: bilateral Lung location: lower lobe of lung Qualified Codes: J18.1 - Lobar pneumonia, unspecified organism (6) Respiratory failure Status: Resolved Qualifiers: Chronicity: acute Respiratory failure complication: hypoxia Qualified Codes: J96.01 - Acute respiratory failure with hypoxia Resolution Date/Time: 09/16/18 @ 21:01 (7) Discharge planning issues Status: Acute (8) DVT prophylaxis Status: Acute (9) Transfusion of blood during current hospitalization Status: Acute (10) Presbycusis of both ears Status: Chronic Clinical Quality Measures DVT/VTE Risk/Contraindication: Risk Factor Score Per Nursin RFS Level Per Nursing on Admit: 4+=Very High NILAM MORSE DO September 19, 2018 10:16
[2018-09-19] MEDS ORDERED: NS IV 500 ML 500 ML ONE (10:41)
--- NOTE | 2018-09-19 12:50 | Progress Note-Cardiology ---
Cardiology SOAP Progress Note Subjective: Weakness, malaise No cp or palp or syncope Mod exertional shortness of breath Objective: I&O/Vital Signs 09/19/18 09/19/18 09/19/18 09/19/18 01:10 08:00 08:00 10:50 Temp 98.7 97.2 Pulse 68 69 Resp 16 20 B/P (MAP) 96/53 (67) 102/53 Pulse Ox 94 99 98 O2 Delivery High Flow N/C High Flow N/C Nasal Cannula Nasal Cannula O2 Flow Rate 2.00 2.00 2.00 2.00 09/19/18 11:10 Temp 98.4 Pulse 66 Resp 18 B/P (MAP) 105/52 Pulse Ox 98 O2 Delivery Nasal Cannula O2 Flow Rate 2.00 09/19/18 00:00 Intake Total 850 ml Output Total 450 ml Balance 400 ml Weight (Pounds): 131 Weight (Ounces): 5.0 Weight (Calculated Kilograms): 59.477260 Constitutional: AAO x 3, other (thin) Respiratory: No accessory muscle use, No respiratory distress; chest expansion is symmetric, chest is bilaterally symmetric, lungs clear to auscultation Cardiovascular: regular rate-rhythm; No JVD; S1 and S2 Gastrointestional: No tender; soft, round, audible bowel sounds Extremities: no lower extremity edema bilateral Neurologic/Psychiatric: grossly intact, power is 5/5 both on sides Skin: No rash, No ulcerations; other (Diffuse abdominal bruising) Results/Procedures: Labs Laboratory Tests 09/18/18 15:25: Urine Color YELLOW, Urine Clarity SLIGHTLY CLOUDY, Urine pH 5, Urine Specific [place] 1.010L, Urine Protein 2+H, Urine Glucose (UA) NEGATIVE, Urine Ketones NEGATIVE, Urine Nitrite NEGATIVE, Urine Bilirubin NEGATIVE, Urine Urobilinogen NORMAL, Urine Leukocyte Esterase NEGATIVE, Urine RBC (Auto) 1+H, Urine RBC RARE , Urine WBC 0-2, Urine Crystals NONE, Urine Bacteria NEGATIVE, Urine Casts PRESENT, Urine Hyaline Casts 2-5H, Urine Mucus NEGATIVE, Urine Culture Indicated NO 09/19/18 06:45: White Blood Count 30.1*H, Red Blood Count 2.20L, Hemoglobin 6.4*L, Hematocrit 20 *L, Mean Corpuscular Volume 89, Mean Corpuscular Hemoglobin 29, Mean Corpuscular Hemoglobin Concent 33, Red Cell Distribution Width 15.5H, Platelet Count 239, Mean Platelet Volume 10.1, Neutrophils (%) (Auto) 83H, Lymphocytes (% ) (Auto) 8L, Monocytes (%) (Auto) 9, Eosinophils (%) (Auto) 0, Basophils (%) ( Auto) 0, Neutrophils # (Auto) 25.0H, Lymphocytes # (Auto) 2.4, Monocytes # (Auto ) 2.6H, Eosinophils # (Auto) 0.0, Basophils # (Auto) 0.0, Sodium Level 140, Potassium Level 3.8, Chloride Level 110H, Carbon Dioxide Level 24, Anion Gap 6, Blood Urea Nitrogen 46H, Creatinine 1.18, Estimat Glomerular Filtration Rate 60 , BUN/Creatinine Ratio 39, Glucose Level 129H, Calcium Level 7.9L, Corrected Calcium 9.3, Total Bilirubin 0.3, Aspartate Amino Transf (AST/SGOT) 18, Alanine Aminotransferase (ALT/SGPT) 65H, Alkaline Phosphatase 28L, Total Protein 3.7L, Albumin 2.2L 09/19/18 11:54: Lab Scanned Report Transfusion Reaction Form Microbiology 09/09/18 Blood Culture - Final, Complete No growth 09/09/18 MRSA Screen - Final, Complete MRSA not isolated Laboratory Tests 09/18/18 04:50 09/19/18 06:45 A/P: Assessment: GI bleed (coffee-ground emesis) and blood loss anemia, esophageal candidiasis and esophagitis diagnosed on upper endoscopy of 09/18/[address] Shell Abdominal wall hematoma Mild, acute diastolic CHF Elevated troponin, likely type 2 OH due to resp failure/sepsis Echo of : LVEF 60-65%, no regional wall motion abnormality, PASP within normal limits Pneumonia with sepsis - management per pulmonary services Liver enzyme elevation of undetermined etiology Acute exacerbation of COPD - management per pulmonary services Reported h/o CVA in 2005 - details unknown HLD - statin tx H/O "stomach cancer" approx 20 years ago - treated in [place] - details unknown Tobaccoism - cessation advised Plan: * Worsening of clinical status * Hold anticoagulants * Treat anemia * Monitor labs * I discussed his case with KAISER Enriquez MD [facility] September 19, 2018 12:50
[2018-09-19] MEDS: MAGNESIUM CITRATE 300 ML BTL PO SCH ×2 (13:11→20:23)
--- NOTE | 2018-09-19 13:26 | Physical Therapy Progress Note ---
Therapy Progress Note Checked with nurse before trying to see patient this afternoon and she states he is doing much better and has gotten some blood. Patient refused treatment again today. The benefits of therapy and consequences of inactivity were explained to patient and he still refuses. He acts agitated and appears to be bothered and just waves therapist off and states "no". LUCAS MEAD PT September 19, 2018 13:26
--- NOTE | 2018-09-19 14:55 | Pulmonary Progress Note ---
Subjective Time Seen by a Provider: 14:56 Subjective/Events-last exam PT was transfused again today secondary to anemia. Sepsis Event Evaluation Height, Weight, BMI Height: 5'8.00" Weight: 131lbs. 5.0oz. 59.676390xr; 19.5 BMI Method:Stated Focused Exam Time of Focused Exam: 22:02 Exam Exam Vital Signs Date Time Temp Pulse Resp B/P (MAP) Pulse Ox O2 Delivery O2 Flow Rate FiO2 09/19/18 14:05 97.7 57 16 104/51 100 Nasal Cannula 2.00 09/19/18 13:35 97.7 57 16 104/51 100 Nasal Cannula 2.00 09/19/18 11:10 98.4 66 18 105/52 98 Nasal Cannula 2.00 09/19/18 10:50 97.2 69 20 102/53 98 Nasal Cannula 2.00 09/19/18 08:00 Nasal Cannula 2.00 09/19/18 08:00 98.7 68 16 96/53 (67) 99 High Flow N/C 2.00 09/19/18 01:10 94 High Flow N/C 2.00 09/19/18 00:00 98.8 88 24 109/65 (80) 93 Nasal Cannula 2.00 09/18/18 21:43 94 High Flow N/C 2.00 09/18/18 21:36 95 High Flow N/C 2.00 09/18/18 20:00 Nasal Cannula 2.00 09/18/18 16:55 98.0 90 22 93/59 (70) 97 Nasal Cannula 2.00 09/18/18 15:07 95 High Flow N/C 2.00 I & O 09/19/18 07:00 Intake Total 960 ml Output Total 650 ml Balance 310 ml Height & Weight Height: 5'8.00" Weight: 131lbs. 5.0oz. 59.728105wu; 19.5 BMI Method:Stated General Appearance: WD/WN, Anxious, Chronically ill, Mild Distress, Thin HEENT: PERRL/EOMI, Normal ENT Inspection Neck: Normal Inspection Respiratory: Chest Non Tender, No Accessory Muscle Use, No Respiratory Distress , Crackles, Decreased Breath Sounds Cardiovascular: Regular Rate, Rhythm, No Edema, No Murmur Capillary Refill: Less Than 3 Seconds Peripheral Pulses: 2+ Radial Pulses (L) Gastrointestinal: normal bowel sounds, non tender, soft, no organomegaly Extremity: Normal Inspection, Non Tender, No Pedal Edema Neurologic/Psychiatric: Alert, Oriented x3, No Motor/Sensory Deficits, Normal Mood/Affect, sample worker II-XII Norm as Tested Skin: Normal Color, Warm/Dry Lymphatic: No Adenopathy Results Lab Laboratory Tests 09/18/18 04:50 09/19/18 06:45 Assessment/Plan Assessment/Plan COPDAE with hypoxia -Hold prednisone for now to see if leukocytosis improves. Will probably need a low dose quick taper upon discharge. -SVNS with duonebQ4 -Advair abdominal wall hematoma -Lovenox on hold GIB with Anemia --Surgery is consulted -Hold Xeralto secondary to bleeding -PT was already barr Leukocytosis- -Rocephin and Flagyl -Hold prednisone Small segmental RLL PE -HOld anticoagulation secondary to active bleeding. Pneumonia with severe sepsis - Cefepime - has stopped. NSTEMI - probably secondary to hypoxia -Cardiology consulted ELINA ALVAREZ DO September 19, 2018 14:55
[2018-09-19] MEDS: RT-ADVAIR HFA 115/21 MCG PER PUFF IH SCH ×2 (19:15→19:17)
[2018-09-20 00:10] VITALS: BP 103/71
[2018-09-20] MEDS: RT-ALBUTEROL/IPRATROPIUM 3 ML (DUONEB) VIAL IH SCH ×6 (02:31→22:20)
[2018-09-20] MEDS: metroNIDAZOLE 500MG/100ML IVPB 100 ML IV SCH ×3 (05:23→21:19)
[2018-09-20] MEDS: KCL 10 MEQ TAB (MICRO K) PO SCH (06:40)
[2018-09-20] MEDS: FUROSEMIDE 20 MG (LASIX) TAB PO SCH (06:40)
[2018-09-20] MEDS: SUCRALFATE 1 GM (CARAFATE) TAB PO SCH ×4 (06:40→21:18)
[2018-09-20 06:48] LABS: BASOPHILS % (AUTO) 0 % (0-10); EOSINOPHILS # (AUTO) 0.1 10^3/uL (0.0-0.3); EOSINOPHILS % (AUTO) 1 % (0-10); HEMATOCRIT 26 % (40-54); HEMOGLOBIN 8.9 G/DL (13.3-17.7); LYMPHOCYTES % (AUTO) 11 % (12-44); MEAN CORPUSCULAR HGB CONC 35 G/DL (32-36); MEAN CORPUSCULAR VOLUME 87 FL (80-99); MEAN PLATELET VOLUME 9.7 FL (7.4-10.4); MONOCYTES # (AUTO) 2.1 X 10^3 (0.0-1.0); MONOCYTES % (AUTO) 11 % (0-12); NEUTROPHILS # (AUTO) 14.5 X 10^3 (1.8-7.8); NEUTROPHILS % (AUTO) 77 % (42-75); PLATELET COUNT 181 10^3/uL (130-400); WHITE BLOOD COUNT 18.7 10^3/uL (4.3-11.0)
[2018-09-20 06:50] LABS: MEAN CORPUSCULAR HEMOGLOBIN 30 PG (25-34)
[2018-09-20 07:11] LABS: ALANINE AMINOTRANSFERASE 47 U/L (0-55); ALBUMIN 2.2 GM/DL (3.2-4.5); ALKALINE PHOSPHATASE 30 U/L (40-136); BILIRUBIN,TOTAL 0.5 MG/DL (0.1-1.0); BUN/CREATININE RATIO 30; CALCIUM 7.9 MG/DL (8.5-10.1); CARBON DIOXIDE 25 MMOL/L (21-32); CHLORIDE 111 MMOL/L (98-107); CREATININE SERUM 1.04 MG/DL (0.60-1.30); GFR ESTIMATED > 60; GLUCOSE 103 MG/DL (70-105); SODIUM 143 MMOL/L (135-145); TOTAL PROTEIN 3.9 GM/DL (6.4-8.2)
[2018-09-20] MEDS: RT-ADVAIR HFA 115/21 MCG PER PUFF IH SCH ×2 (07:31→18:47)
[2018-09-20 08:00] VITALS: BP 99/54
[2018-09-20] MEDS: PANTOPRAZOLE 40 MG (PROTONIX) VIAL IV SCH ×2 (08:15→21:19)
[2018-09-20] MEDS: FLUCONAZOLE 200 MG/100 ML 50 ML, EMPTY IV BAG (PVC) 1 EA IV SCH ×2 (08:15)
[2018-09-20] MEDS: cefTRIAXone FOR IV USE 1,000 MG in WATER (STERILE) FOR INJECTION 10 ML IV SCH (08:15)
[2018-09-20] MEDS: ASPIRIN 81 MG CHEW (CHILDREN'S ASA) PO SCH (08:16)
[2018-09-20] MEDS: MAGNESIUM CITRATE 300 ML BTL PO SCH ×2 (08:16→21:25)
--- NOTE | 2018-09-20 09:58 | Progress Note-Cardiology ---
Cardiology SOAP Progress Note Subjective: Gen malaise and weakness No cp or palp or syncope Objective: I&O/Vital Signs 09/19/18 09/20/18 09/20/18 09/20/18 22:39 00:10 02:31 07:32 Temp 98.7 Pulse 71 Resp 21 B/P (MAP) 103/71 (82) Pulse Ox 95 96 96 94 O2 Delivery Nasal Cannula Nasal Cannula Nasal Cannula Nasal Cannula O2 Flow Rate 2.00 2.00 2.00 2.00 09/20/18 08:00 Temp 100.4 Pulse 64 Resp 18 B/P (MAP) 99/54 (69) Pulse Ox 96 O2 Delivery High Flow N/C O2 Flow Rate 2.00 09/20/18 00:00 Intake Total 1575 ml Output Total 1300 ml Balance 275 ml Weight (Pounds): 131 Weight (Ounces): 5.0 Weight (Calculated Kilograms): 59.508708 Constitutional: AAO x 3, other (thin) Respiratory: No accessory muscle use, No respiratory distress; chest expansion is symmetric, chest is bilaterally symmetric, lungs clear to auscultation Cardiovascular: regular rate-rhythm; No JVD; S1 and S2 Gastrointestional: No tender; soft, round, audible bowel sounds Extremities: no lower extremity edema bilateral Neurologic/Psychiatric: grossly intact, power is 5/5 both on sides Skin: No rash, No ulcerations; other (Diffuse abdominal bruising) Results/Procedures: Labs Laboratory Tests 09/19/18 11:54: Lab Scanned Report Transfusion Reaction Form 09/20/18 06:43: White Blood Count 18.7H, Red Blood Count 2.92L, Hemoglobin 8.9#L, Hematocrit 26L , Mean Corpuscular Volume 87, Mean Corpuscular Hemoglobin 30, Mean Corpuscular Hemoglobin Concent 35, Red Cell Distribution Width 15.0H, Platelet Count 181, Mean Platelet Volume 9.7, Neutrophils (%) (Auto) 77H, Lymphocytes (%) (Auto) 11L , Monocytes (%) (Auto) 11, Eosinophils (%) (Auto) 1, Basophils (%) (Auto) 0, Neutrophils # (Auto) 14.5H, Lymphocytes # (Auto) 2.0, Monocytes # (Auto) 2.1H, Eosinophils # (Auto) 0.1, Basophils # (Auto) 0.0, Sodium Level 143, Potassium Level 4.0, Chloride Level 111H, Carbon Dioxide Level 25, Anion Gap 7, Blood Urea Nitrogen 31H, Creatinine 1.04, Estimat Glomerular Filtration Rate > 60, BUN /Creatinine Ratio 30, Glucose Level 103, Calcium Level 7.9L, Corrected Calcium 9.3, Total Bilirubin 0.5, Aspartate Amino Transf (AST/SGOT) 19, Alanine Aminotransferase (ALT/SGPT) 47, Alkaline Phosphatase 30L, Total Protein 3.9L, Albumin 2.2L Microbiology 09/09/18 Blood Culture - Final, Complete No growth 09/18/18 Fungal Culture 1 - Preliminary, Resulted Culture In Progress A/P: Assessment: GI bleed (coffee-ground emesis) and blood loss anemia, esophageal candidiasis and esophagitis diagnosed on upper endoscopy of 09/18/[address] Shell Abdominal wall hematoma Mild, acute diastolic CHF Elevated troponin, likely type 2 [place] due to resp failure/sepsis Echo of : LVEF 60-65%, no regional wall motion abnormality, PASP within normal limits Pneumonia with sepsis - management per pulmonary services Liver enzyme elevation of undetermined etiology Acute exacerbation of COPD - management per pulmonary services Reported h/o CVA in 2005 - details unknown HLD - statin tx H/O "stomach cancer" approx 20 years ago - treated in [place] - details unknown Tobaccoism - cessation advised Plan: * Relatively complex management due to multiple comorbidities. I have discussed his case with Dr Shaw * Monitor labs * Dr Hardy covering Card Svce over the weekend KAISER LEDESMA MD FACP FAC CCDS September 20, 2018 09:58
--- NOTE | 2018-09-20 11:04 | Progress Note-Hospitalist ---
Subjective HPI/CC On Admission Date Seen by Provider: September 20, 2018 Time Seen by Provider: 10:00 Subjective/Events-last exam Patient improved 3 units of blood and hgb 8.9 Hematoma is where source of loss is Updated family Very [place]AR[place] diff to communicate No pain is reported Lungs are very much improved Not on anticoagulation due to life threatening bleed Review of Systems General: Fatigue Focused Exam Time of Focused Exam: 22:02 Objective Exam Vital Signs Vital Signs Date Time Temp Pulse Resp B/P (MAP) Pulse Ox O2 Delivery O2 Flow Rate FiO2 09/20/18 14:49 98 Nasal Cannula 2.00 09/20/18 08:00 100.4 64 18 99/54 (69) Capillary Refill : Less Than 3 Seconds General Appearance: No Apparent Distress, WD/WN, Anxious, Chronically ill, Thin HEENT: PERRL/EOMI, Normal ENT Inspection Neck: Full Range of Motion, Normal Inspection, Non Tender, Supple Respiratory: Chest Non Tender, Lungs Clear, Normal Breath Sounds, No Accessory Muscle Use, No Respiratory Distress Cardiovascular: Regular Rate, Rhythm, No Edema, No Murmur Gastrointestinal: Normal Bowel Sounds, Non Tender, Soft Extremity: Normal Inspection, Non Tender, No Pedal Edema Neurologic/Psychiatric: Alert, Oriented x3, No Motor/Sensory Deficits, Normal Mood/Affect, cigar patcher II-XII Norm as Tested Skin: Normal Color, Warm/Dry Lymphatic: No Adenopathy Results/Procedures Lab Laboratory Tests 09/20/18 06:43 Patient resulted labs reviewed. Assessment/Plan Assessment and Plan Assess & Plan/Chief Complaint Assessment: Vomiting now resolved Anemia acute blood loss type from abdominal wall hematoma s/p 3 units Pneumonia Sepsis AECOPD Presbycusis Leukocytosis-improved Plan: Monitor BP Poor prognosis watermaster Maintain O2 Consult Dr Odonnell and general surgery and they are appreciated Checked CT scan Give blood transfusions Diagnosis/Problems Diagnosis/Problems (1) Severe sepsis Status: Resolved Resolution Date/Time: 09/11/18 @ 16:16 (2) Pulmonary embolism Status: Acute Qualifiers: Chronicity: acute Acute cor pulmonale presence: without acute cor pulmonale (3) COPD exacerbation Status: Acute (4) Elevated troponin Status: Acute (5) Pneumonia Status: Acute Qualifiers: Pneumonia type: due to unspecified organism Laterality: bilateral Lung location: lower lobe of lung Qualified Codes: J18.1 - Lobar pneumonia, unspecified organism (6) Respiratory failure Status: Resolved Qualifiers: Chronicity: acute Respiratory failure complication: hypoxia Qualified Codes: J96.01 - Acute respiratory failure with hypoxia Resolution Date/Time: 09/16/18 @ 21:01 (7) Discharge planning issues Status: Acute (8) DVT prophylaxis Status: Acute (9) Transfusion of blood during current hospitalization Status: Acute (10) Presbycusis of both ears Status: Chronic Clinical Quality Measures DVT/VTE Risk/Contraindication: Risk Factor Score Per Nursin RFS Level Per Nursing on Admit: 4+=Very High NILAM MORSE DO September 20, 2018 11:04
--- NOTE | 2018-09-20 12:46 | Pulmonary Progress Note ---
Subjective Time Seen by a Provider: 12:45 Subjective/Events-last exam Denies SOB. Family at bedside. Sepsis Event Evaluation Height, Weight, BMI Height: 5'8.00" Weight: 131lbs. 5.0oz. 59.858315kl; 19.5 BMI Method:Stated Focused Exam Time of Focused Exam: 22:02 Exam Exam Vital Signs Date Time Temp Pulse Resp B/P (MAP) Pulse Ox O2 Delivery O2 Flow Rate FiO2 09/20/18 10:57 98 Nasal Cannula 2.00 09/20/18 08:00 Nasal Cannula 2.00 09/20/18 08:00 100.4 64 18 99/54 (69) 96 High Flow N/C 2.00 09/20/18 07:32 94 Nasal Cannula 2.00 09/20/18 02:31 96 Nasal Cannula 2.00 09/20/18 00:10 98.7 71 21 103/71 (82) 96 Nasal Cannula 2.00 09/19/18 22:39 95 Nasal Cannula 2.00 09/19/18 19:54 Nasal Cannula 2.00 09/19/18 19:16 95 Nasal Cannula 2.00 09/19/18 16:59 97.8 76 22 100/55 (70) 95 Nasal Cannula 2.00 09/19/18 16:45 97.4 80 18 98/53 95 Room Air 09/19/18 16:16 95 High Flow N/C 2.00 09/19/18 14:20 98.2 61 16 120/58 99 Room Air 09/19/18 14:20 98.2 61 16 120/58 99 Room Air 09/19/18 14:05 97.7 57 16 104/51 100 Nasal Cannula 2.00 09/19/18 13:35 97.7 57 16 104/51 100 Nasal Cannula 2.00 I & O 09/20/18 07:00 Intake Total 2335 ml Output Total 1500 ml Balance 835 ml Height & Weight Height: 5'8.00" Weight: 131lbs. 5.0oz. 59.936504jm; 19.5 BMI Method:Stated General Appearance: No Apparent Distress, WD/WN, Anxious, Chronically ill, Thin HEENT: PERRL/EOMI, Normal ENT Inspection Neck: Full Range of Motion, Normal Inspection, Non Tender, Supple Respiratory: Chest Non Tender, Lungs Clear, Normal Breath Sounds, No Accessory Muscle Use, No Respiratory Distress Cardiovascular: Regular Rate, Rhythm, No Edema, No Murmur Capillary Refill: Less Than 3 Seconds Peripheral Pulses: 2+ Radial Pulses (L) Gastrointestinal: normal bowel sounds, non tender, soft, no organomegaly Extremity: Normal Inspection, Non Tender, No Pedal Edema Neurologic/Psychiatric: Alert, Oriented x3, No Motor/Sensory Deficits, Normal Mood/Affect, inside tester II-XII Norm as Tested Skin: Normal Color, Warm/Dry Lymphatic: No Adenopathy Results Lab Laboratory Tests 09/19/18 06:45 09/20/18 06:43 Assessment/Plan Assessment/Plan COPDAE with hypoxia -SVNS with duonebQ4 -Advair abdominal wall hematoma -Lovenox on hold GIB with Anemia --Surgery is consulted -Hold Xeralto secondary to bleeding -PT was already barr Leukocytosis- -Rocephin and Flagyl Small segmental RLL PE -HOld anticoagulation secondary to active bleeding. Pneumonia with severe sepsis - Cefepime - has stopped. NSTEMI - probably secondary to hypoxia -Cardiology consulted ELINA ALVAREZ DO September 20, 2018 12:46
[2018-09-20] MEDS: D5 NS 1000 ML IV SOLUTION 1,000 ML IV SCH ×2 (13:42→14:56)
--- NOTE | 2018-09-20 13:49 | Physical Therapy Progress Note ---
Therapy Progress Note PT treatment attempted but patient refused. He states "I'm not doing it today". LUCAS MEAD PT September 20, 2018 13:49
[2018-09-20 16:40] VITALS: BP 102/52
--- NOTE | 2018-09-20 20:56 | NUR ---
REPORT RECEIVED FROM VALERIE CLARK. THIS RN WILL ASSUME PT CARE.
[2018-09-21] VITALS: BP 99/51
[2018-09-21] MEDS: RT-ALBUTEROL/IPRATROPIUM 3 ML (DUONEB) VIAL IH SCH ×6 (02:21→23:12)
[2018-09-21] MEDS: metroNIDAZOLE 500MG/100ML IVPB 100 ML IV SCH ×3 (06:02→21:20)
[2018-09-21] MEDS: KCL 10 MEQ TAB (MICRO K) PO SCH (06:03)
[2018-09-21] MEDS: FUROSEMIDE 20 MG (LASIX) TAB PO SCH (06:03)
[2018-09-21] MEDS: SUCRALFATE 1 GM (CARAFATE) TAB PO SCH ×4 (06:03→20:27)
[2018-09-21 06:45] LABS: BASOPHILS % (AUTO) 0 % (0-10); EOSINOPHILS # (AUTO) 0.2 10^3/uL (0.0-0.3); EOSINOPHILS % (AUTO) 1 % (0-10); HEMATOCRIT 26 % (40-54); HEMOGLOBIN 8.5 G/DL (13.3-17.7); LYMPHOCYTES # (AUTO) 1.7 X 10^3 (1.0-4.0); LYMPHOCYTES % (AUTO) 10 % (12-44); MEAN CORPUSCULAR HEMOGLOBIN 30 PG (25-34); MEAN CORPUSCULAR HGB CONC 33 G/DL (32-36); MEAN CORPUSCULAR VOLUME 90 FL (80-99); MEAN PLATELET VOLUME 9.5 FL (7.4-10.4); MONOCYTES % (AUTO) 11 % (0-12); NEUTROPHILS # (AUTO) 13.7 X 10^3 (1.8-7.8); NEUTROPHILS % (AUTO) 78 % (42-75); PLATELET COUNT 241 10^3/uL (130-400); RED CELL DISTRIBUTION WIDTH 15.9 % (10.0-14.5); WHITE BLOOD COUNT 17.6 10^3/uL (4.3-11.0)
[2018-09-21 07:05] LABS: ALANINE AMINOTRANSFERASE 40 U/L (0-55); ALBUMIN 2.3 GM/DL (3.2-4.5); ALKALINE PHOSPHATASE 25 U/L (40-136); BILIRUBIN,TOTAL 0.6 MG/DL (0.1-1.0); BUN/CREATININE RATIO 24; CALCIUM 7.8 MG/DL (8.5-10.1); CARBON DIOXIDE 25 MMOL/L (21-32); CHLORIDE 109 MMOL/L (98-107); CREATININE SERUM 0.92 MG/DL (0.60-1.30); GFR ESTIMATED > 60; GLUCOSE 96 MG/DL (70-105); POTASSIUM 3.8 MMOL/L (3.6-5.0); SODIUM 140 MMOL/L (135-145); TOTAL PROTEIN 4.1 GM/DL (6.4-8.2)
[2018-09-21] MEDS: RT-ADVAIR HFA 115/21 MCG PER PUFF IH SCH ×2 (07:34→18:36)
[2018-09-21 08:00] VITALS: BP 103/50
[2018-09-21] MEDS: MAGNESIUM CITRATE 300 ML BTL PO SCH (08:22)
[2018-09-21] MEDS: FLUCONAZOLE 200 MG/100 ML 50 ML, EMPTY IV BAG (PVC) 1 EA IV SCH ×2 (08:23)
[2018-09-21] MEDS: cefTRIAXone FOR IV USE 1,000 MG in WATER (STERILE) FOR INJECTION 10 ML IV SCH (08:23)
[2018-09-21] MEDS: PANTOPRAZOLE 40 MG (PROTONIX) VIAL IV SCH ×2 (08:23→20:27)
[2018-09-21] MEDS: ASPIRIN 81 MG CHEW (CHILDREN'S ASA) PO SCH (08:23)
--- NOTE | 2018-09-21 08:42 | Pulmonary Progress Note ---
Subjective Time Seen by a Provider: 15:31 Subjective/Events-last exam Pt appears to be doing better Sepsis Event Evaluation Height, Weight, BMI Height: 5'8.00" Weight: 131lbs. 5.0oz. 59.187057sx; 19.5 BMI Method:Stated Focused Exam Time of Focused Exam: 22:02 Exam Exam Vital Signs Date Time Temp Pulse Resp B/P (MAP) Pulse Ox O2 Delivery O2 Flow Rate FiO2 09/21/18 07:36 94 Nasal Cannula 2.00 09/21/18 02:21 97 Nasal Cannula 2.00 09/21/18 00:00 98.2 77 18 99/51 (67) 98 Nasal Cannula 2.00 09/20/18 22:20 97 Nasal Cannula 2.00 09/20/18 20:00 Nasal Cannula 2.00 09/20/18 18:47 96 Nasal Cannula 2.00 09/20/18 16:40 98.0 62 22 102/52 (69) 98 Nasal Cannula 2.00 09/20/18 14:49 98 Nasal Cannula 2.00 09/20/18 10:57 98 Nasal Cannula 2.00 I & O 09/21/18 07:00 Intake Total 2110 ml Output Total 1625 ml Balance 485 ml Height & Weight Height: 5'8.00" Weight: 131lbs. 5.0oz. 59.516620uk; 19.5 BMI Method:Stated General Appearance: No Apparent Distress, WD/WN, Anxious, Chronically ill, Thin HEENT: PERRL/EOMI, Normal ENT Inspection Neck: Normal Inspection Respiratory: Chest Non Tender, No Accessory Muscle Use, No Respiratory Distress , Crackles, Decreased Breath Sounds Cardiovascular: Regular Rate, Rhythm, No Edema, No Murmur Capillary Refill: Less Than 3 Seconds Peripheral Pulses: 2+ Radial Pulses (L) Gastrointestinal: normal bowel sounds, non tender, soft, no organomegaly Extremity: Normal Inspection, Non Tender, No Pedal Edema Neurologic/Psychiatric: Alert, Oriented x3, No Motor/Sensory Deficits, Normal Mood/Affect, 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 Pneumonia with severe sepsis - Cefepime - has stopped. NSTEMI - probably secondary to hypoxia -Cardiology consulted ELINA ALVAREZ DO September 21, 2018 08:42
--- NOTE | 2018-09-21 10:25 | Progress Note-Standard ---
Standard Progress Note Progress Notes/Assess & Plan Date Seen by a Provider: September 21, 2018 Time Seen by a Provider: 10:15 Progress/Assessment & Plan Patient seen and still having problems with constipation. Tolerating diet and liquids. Patient refuses to take mag citrate. No N/V. Hematoma and bruising noted over lower abdomen. Abdomen soft, non-tender. Will proceed with starting Dulcolax BID until significant bowel movement. Focused Exam Time of Focused Exam: 22:02 ALYSSA ASHTON APRN September 21, 2018 10:25
[2018-09-21] MEDS: D5 NS 1000 ML IV SOLUTION 1,000 ML IV SCH (10:42)
[2018-09-21] MEDS: BISACODYL 5 MG (DULCOLAX) TABLET PO SCH ×2 (10:45→20:27)
--- NOTE | 2018-09-21 10:54 | Progress Note-Hospitalist ---
Subjective HPI/CC On Admission Date Seen by Provider: September 21, 2018 Time Seen by Provider: 11:00 Subjective/Events-last exam Patient doing better Refuse mag citrate Willing to take Dulcolax Family the bedside and they stay here at the hospital 04/12 Difficulty communicating due to severe hard of hearing Denies any pain Hemoglobin stable Review of Systems General: Fatigue Focused Exam Time of Focused Exam: 22:02 Objective Exam Vital Signs Vital Signs Date Time Temp Pulse Resp B/P (MAP) Pulse Ox O2 Delivery O2 Flow Rate FiO2 09/21/18 11:52 91 Nasal Cannula 2.00 09/21/18 08:00 97.9 71 18 103/50 (67) Capillary Refill : Less Than 3 Seconds General Appearance: No Apparent Distress, WD/WN, Anxious, Chronically ill, Thin HEENT: PERRL/EOMI, Normal ENT Inspection Neck: Normal Inspection Respiratory: Chest Non Tender, Lungs Clear, Normal Breath Sounds, No Accessory Muscle Use, No Respiratory Distress Cardiovascular: Regular Rate, Rhythm, No Edema, No Murmur Gastrointestinal: Normal Bowel Sounds, Non Tender, Soft Extremity: Normal Inspection, Non Tender, No Pedal Edema Neurologic/Psychiatric: Alert, Oriented x3, No Motor/Sensory Deficits, Normal Mood/Affect, 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 Assessment/Plan Assessment and Plan Assess & Plan/Chief Complaint Assessment: Vomiting now resolved Anemia acute blood loss type from abdominal wall hematoma s/p 3 units Pneumonia Sepsis AECOPD Presbycusis Leukocytosis-improved Plan: Monitor BP Poor prognosis halfway Maintain O2 Consult Dr Odonnell and general surgery and they are appreciated s/p blood transfusions Diagnosis/Problems Diagnosis/Problems (1) Severe sepsis Status: Resolved Resolution Date/Time: 09/11/18 @ 16:16 (2) Pulmonary embolism Status: Acute Qualifiers: Chronicity: acute Acute cor pulmonale presence: without acute cor pulmonale (3) COPD exacerbation Status: Acute (4) Elevated troponin Status: Acute (5) Pneumonia Status: Acute Qualifiers: Pneumonia type: due to unspecified organism Laterality: bilateral Lung location: lower lobe of lung Qualified Codes: J18.1 - Lobar pneumonia, unspecified organism (6) Respiratory failure Status: Resolved Qualifiers: Chronicity: acute Respiratory failure complication: hypoxia Qualified Codes: J96.01 - Acute respiratory failure with hypoxia Resolution Date/Time: 09/16/18 @ 21:01 (7) Discharge planning issues Status: Acute (8) DVT prophylaxis Status: Acute (9) Transfusion of blood during current hospitalization Status: Acute (10) Presbycusis of both ears Status: Chronic Clinical Quality Measures DVT/VTE Risk/Contraindication: Risk Factor Score Per Nursin RFS Level Per Nursing on Admit: 4+=Very High NILAM MORSE DO September 21, 2018 10:54
--- NOTE | 2018-09-21 12:26 | Physical Therapy Daily Note ---
PT Daily Note-Current Subjective Pt initially refused treatment. His family convinced him to get up and work with therapy. Mental Status Patient Orientation: Person, Place, Situation Attachments: Oxygen, IV Transfers Therapy Code Descriptions/Definitions Functional [place] Measure: 0=Not Assessed/NA 4=Minimal Assistance 1=Total Assistance 5=Supervision or Setup 2=Maximal Assistance 6=Modified [place] 3=Moderate Assistance 7=Complete [place] Therapy Quality Codes: 6 Independent with activity with or without an assistive device 5 Patient requires set up or clean up by helper. Patient completes activity by themselves 4 Supervision or touching assist (CGA). [place] provide cues , steadying assist 3 The helper provides less than half the effort to complete the activity 2 The helper provides more than half the effort to complete the activity 1 Dependent. The helper does all the effort to complete an activity 7 Patient refused to complete or attempt activity 9 The patient did not perform the activity before the current illness or injury 88 Not attempted due to Medical conditions or safety concerns Transfers (B, C, W/C) (FIM): 6 Supine to/from Sit: 6 Sit to/from Stand: 6 Weight Bearing Right Lower Extremity: Right Full Weight Bearing Left Lower Extremity: Left Full Weight Bearing Gait Training Gait (FIM): 3 Distance (FIM): 3=150 ft Distance: 150 Gait Level of Assist: 3 Gait Persons Needed: 1 Gait Assistive Device: FWW Exercises Seated Therapy Exercises: LE Protocol Seated Reps: 15 Assessment Pt was safe with transfers and ambulation. He reported fatigue after ambulation. PT Residential Goals Tank Welder Goals PT Tank Welder Goals Time Frame: September 20, 2018 Transfers (B,C,W/C) (FIM): 7 Gait (FIM): 6 PT Plan Treatment/Plan Treatment Plan: Continue Plan of Care Treatment Plan: Bed Mobility, Education, Functional Activity [place], Functional Strength, Gait, Safety, Therapeutic Exercise, Transfers Treatment Duration: September 20, 2018 Frequency: 6 times per week Estimated Hrs Per Day: .25 hour per day Patient and/or Family Agrees t: Yes Time/GCodes Time In: 1205 Time Out: 1220 Total Billed Treatment Time: 15 Total Billed Treatment 1, gt 15 TANIA PARIKH PT September 21, 2018 12:26
--- NOTE | 2018-09-21 14:40 | Cardiology Progress Note ---
Cardiology SOAP Progress Note Subjective: No cardiac symptoms. Objective: I&O/Vital Signs 09/21/18 09/21/18 09/21/18 09/21/18 07:36 08:00 08:20 11:52 Temp 97.9 Pulse 71 Resp 18 B/P (MAP) 103/50 (67) Pulse Ox 94 95 91 O2 Delivery Nasal Cannula Nasal Cannula Nasal Cannula Nasal Cannula O2 Flow Rate 2.00 2.00 2.00 2.00 09/21/18 00:00 Intake Total 1850 ml Output Total 1225 ml Balance 625 ml Weight (Pounds): 131 Weight (Ounces): 5.0 Weight (Calculated Kilograms): 59.317170 Constitutional: AAO x 3, other (thin) Respiratory: No accessory muscle use, No respiratory distress; chest expansion is symmetric, chest is bilaterally symmetric, lungs clear to auscultation Cardiovascular: regular rate-rhythm; No JVD; S1 and S2 Gastrointestional: No tender; soft, round, audible bowel sounds Extremities: No normal range of motion, No non-tender, No normal inspection, No pedal edema, No calf tenderness, No normal capillary refill, No pelvis stable , No calf tenderness, No inflammation, No pedal edema, No slow capillary refill , No swelling, No other, No abrasion, No clubbing, No cyanosis, No ecchymosis, No laceration; no lower extremity edema bilateral; No significant edema, No tenderness, No wound Neurologic/Psychiatric: no motor/sensory deficits, alert, normal mood/affect, oriented x 3, grossly intact, power is 5/5 both on sides Skin: No rash, No ulcerations; other (Diffuse abdominal bruising) Results/Procedures: Labs Laboratory Tests 09/21/18 06:31: White Blood Count 17.6H, Red Blood Count 2.82L, Hemoglobin 8.5L, Hematocrit 26L , Mean Corpuscular Volume 90, Mean Corpuscular Hemoglobin 30, Mean Corpuscular Hemoglobin Concent 33, Red Cell Distribution Width 15.9H, Platelet Count 241, Mean Platelet Volume 9.5, Neutrophils (%) (Auto) 78H, Lymphocytes (%) (Auto) 10L , Monocytes (%) (Auto) 11, Eosinophils (%) (Auto) 1, Basophils (%) (Auto) 0, Neutrophils # (Auto) 13.7H, Lymphocytes # (Auto) 1.7, Monocytes # (Auto) 2.0H, Eosinophils # (Auto) 0.2, Basophils # (Auto) 0.0, Sodium Level 140, Potassium Level 3.8, Chloride Level 109H, Carbon Dioxide Level 25, Anion Gap 6, Blood Urea Nitrogen 22H, Creatinine 0.92, Estimat Glomerular Filtration Rate > 60, BUN /Creatinine Ratio 24, Glucose Level 96, Calcium Level 7.8L, Corrected Calcium 9.2, Total Bilirubin 0.6, Aspartate Amino Transf (AST/SGOT) 17, Alanine Aminotransferase (ALT/SGPT) 40, Alkaline Phosphatase 25L, Total Protein 4.1L, Albumin 2.3L Microbiology 09/09/18 Blood Culture - Final, Complete No growth 09/18/18 Fungal Culture 1 - Preliminary, Resulted Martine krusei A/P: Assessment/Dx: GI bleed (coffee-ground emesis) and blood loss anemia, esophageal candidiasis and esophagitis diagnosed on upper endoscopy of 09/18/[address] Shell Abdominal wall hematoma Mild, acute diastolic CHF Elevated troponin, likely type 2 [place] due to resp failure/sepsis Echo of : LVEF 60-65%, no regional wall motion abnormality, PASP within normal limits Pneumonia with sepsis - management per pulmonary services Liver enzyme elevation of undetermined etiology Acute exacerbation of COPD - management per pulmonary services Reported h/o CVA in 2005 - details unknown HLD - statin tx H/O "stomach cancer" approx 20 years ago - treated in [place] - details unknown Tobaccoism - cessation advised Plan: * Relatively complex management due to multiple comorbidities. I have discussed his case with Dr Shaw * Monitor labs Thank you for your consultation. Please call me if you have any questions. Maddi Hardy MD, FACP, FACC, FSCAI, FHRS, CCDS Interventional Cardiology Cardiac Electrophysiology Vascular Medicine and Endovascular Interventions Focused Exam Time of Focused Exam: 22:02 Reggie HARDY MD September 21, 2018 14:40
[2018-09-21 16:25] VITALS: BP 112/56
[2018-09-22 00:02] VITALS: BP 117/56
[2018-09-22] MEDS: RT-ALBUTEROL/IPRATROPIUM 3 ML (DUONEB) VIAL IH SCH ×6 (02:20→21:22)
[2018-09-22] MEDS: metroNIDAZOLE 500MG/100ML IVPB 100 ML IV SCH ×3 (05:49→21:24)
[2018-09-22] MEDS: FUROSEMIDE 20 MG (LASIX) TAB PO SCH (05:49)
[2018-09-22] MEDS: SUCRALFATE 1 GM (CARAFATE) TAB PO SCH ×4 (05:49→21:24)
[2018-09-22] MEDS: KCL 10 MEQ TAB (MICRO K) PO SCH (05:49)
[2018-09-22] MEDS: D5 NS 1000 ML IV SOLUTION 1,000 ML IV SCH (06:22)
[2018-09-22] MEDS: RT-ADVAIR HFA 115/21 MCG PER PUFF IH SCH ×2 (07:01→21:25)
[2018-09-22 08:00] VITALS: BP 119/60
[2018-09-22] MEDS: PANTOPRAZOLE 40 MG (PROTONIX) VIAL IV SCH ×2 (08:27→21:24)
[2018-09-22] MEDS: cefTRIAXone FOR IV USE 1,000 MG in WATER (STERILE) FOR INJECTION 10 ML IV SCH (08:27)
[2018-09-22] MEDS: ASPIRIN 81 MG CHEW (CHILDREN'S ASA) PO SCH (08:28)
[2018-09-22] MEDS: BISACODYL 5 MG (DULCOLAX) TABLET PO SCH ×2 (08:28→21:24)
[2018-09-22] MEDS: FLUCONAZOLE 200 MG/100 ML 50 ML, EMPTY IV BAG (PVC) 1 EA IV SCH ×2 (08:38)
--- NOTE | 2018-09-22 10:05 | Progress Note-Standard ---
Standard Progress Note Progress Notes/Assess & Plan Date Seen by a Provider: September 22, 2018 Time Seen by a Provider: 09:45 Progress/Assessment & Plan Patient seen and still having problems with constipation. No BM yet. Tolerating diet and liquids. Patient taking Dulcolax without issues. Hematoma and bruising noted over lower abdomen. Abdomen soft, non-tender. Will continue with Dulcolax BID until significant bowel movement. Focused Exam Time of Focused Exam: 22:02 ALYSSA ASHTON APRN September 22, 2018 10:05
--- NOTE | 2018-09-22 11:47 | Progress Note-Hospitalist ---
Subjective HPI/CC On Admission Date Seen by Provider: September 22, 2018 Time Seen by Provider: 10:45 Subjective/Events-last exam Patient asking to go home Checked meds and labs Son at bedside Breathing better Not getting around much No falls No pain Reviewed labs Review of Systems General: Fatigue Focused Exam Time of Focused Exam: 22:02 Objective Exam Vital Signs Vital Signs Date Time Temp Pulse Resp B/P (MAP) Pulse Ox O2 Delivery O2 Flow Rate FiO2 09/22/18 16:00 99.0 76 18 113/67 (82) 99 High Flow N/C 2.00 Capillary Refill : Less Than 3 Seconds General Appearance: No Apparent Distress, WD/WN, Anxious, Chronically ill, Thin HEENT: PERRL/EOMI, Normal ENT Inspection Neck: Normal Inspection Respiratory: Chest Non Tender, Lungs Clear, Normal Breath Sounds, No Accessory Muscle Use, No Respiratory Distress Cardiovascular: Regular Rate, Rhythm, No Edema, No Murmur Gastrointestinal: Normal Bowel Sounds, Non Tender, Soft Extremity: Normal Inspection, Non Tender, No Pedal Edema Neurologic/Psychiatric: Alert, Oriented x3, No Motor/Sensory Deficits, Normal Mood/Affect, cardiac technician II-XII Norm as Tested Skin: Normal Color, Warm/Dry Lymphatic: No Adenopathy Results/Procedures Lab Patient resulted labs reviewed. Assessment/Plan Assessment and Plan Assess & Plan/Chief Complaint Assessment: Vomiting now resolved Anemia acute blood loss type from abdominal wall hematoma s/p 3 units Pneumonia Sepsis AECOPD Presbycusis Leukocytosis-improved Plan: Monitor BP Poor prognosis usp Maintain O2 Consult Dr Odonnell and general surgery and they are appreciated s/p blood transfusions IRF? SB? NHP? Diagnosis/Problems Diagnosis/Problems (1) Severe sepsis Status: Resolved Resolution Date/Time: 09/11/18 @ 16:16 (2) Pulmonary embolism Status: Acute Qualifiers: Chronicity: acute Acute cor pulmonale presence: without acute cor pulmonale (3) COPD exacerbation Status: Acute (4) Elevated troponin Status: Acute (5) Pneumonia Status: Acute Qualifiers: Pneumonia type: due to unspecified organism Laterality: bilateral Lung location: lower lobe of lung Qualified Codes: J18.1 - Lobar pneumonia, unspecified organism (6) Respiratory failure Status: Resolved Qualifiers: Chronicity: acute Respiratory failure complication: hypoxia Qualified Codes: J96.01 - Acute respiratory failure with hypoxia Resolution Date/Time: 09/16/18 @ 21:01 (7) Discharge planning issues Status: Acute (8) DVT prophylaxis Status: Acute (9) Transfusion of blood during current hospitalization Status: Acute (10) Presbycusis of both ears Status: Chronic Clinical Quality Measures DVT/VTE Risk/Contraindication: Risk Factor Score Per Nursin RFS Level Per Nursing on Admit: 4+=Very High NILAM MORSE DO September 22, 2018 11:46
[2018-09-22 16:00] VITALS: BP 113/67
--- NOTE | 2018-09-22 18:20 | Cardiology Progress Note ---
Cardiology SOAP Progress Note Subjective: No significant cardiac complaints. Objective: I&O/Vital Signs 09/22/18 09/22/18 09/22/18 09/22/18 07:02 08:00 08:00 10:49 Temp 99.0 Pulse 82 Resp 18 B/P (MAP) 119/60 (79) Pulse Ox 94 95 96 O2 Delivery Nasal Cannula Nasal Cannula High Flow N/C Nasal Cannula O2 Flow Rate 2.00 2.00 2.00 2.00 09/22/18 09/22/18 14:28 16:00 Temp 99.0 Pulse 76 Resp 18 B/P (MAP) 113/67 (82) Pulse Ox 95 99 O2 Delivery Nasal Cannula High Flow N/C O2 Flow Rate 2.00 2.00 09/22/18 00:00 Intake Total 660 ml Output Total 1950 ml Balance -1290 ml Weight (Pounds): 131 Weight (Ounces): 5.0 Weight (Calculated Kilograms): 59.219747 Constitutional: AAO x 3, other (thin) Respiratory: No accessory muscle use, No respiratory distress; chest expansion is symmetric, chest is bilaterally symmetric, lungs clear to auscultation Cardiovascular: regular rate-rhythm; No JVD; S1 and S2 Gastrointestional: No tender; soft, round, audible bowel sounds Extremities: No normal range of motion, No non-tender, No normal inspection, No pedal edema, No calf tenderness, No normal capillary refill, No pelvis stable , No calf tenderness, No inflammation, No pedal edema, No slow capillary refill , No swelling, No other, No abrasion, No clubbing, No cyanosis, No ecchymosis, No laceration; no lower extremity edema bilateral; No significant edema, No tenderness, No wound Neurologic/Psychiatric: no motor/sensory deficits, alert, normal mood/affect, oriented x 3, grossly intact, power is 5/5 both on sides Skin: No rash, No ulcerations; other (Diffuse abdominal bruising) Results/Procedures: Labs Microbiology 09/09/18 Blood Culture - Final, Complete No growth 09/18/18 Fungal Culture 1 - Preliminary, Resulted Martine krusei A/P: Assessment/Dx: GI bleed (coffee-ground emesis) and blood loss anemia, esophageal candidiasis and esophagitis diagnosed on upper endoscopy of 09/18/[address] Shell Abdominal wall hematoma Mild, acute diastolic CHF Elevated troponin, likely type 2 [place] due to resp failure/sepsis Echo of : LVEF 60-65%, no regional wall motion abnormality, PASP within normal limits Pneumonia with sepsis - management per pulmonary services Liver enzyme elevation of undetermined etiology Acute exacerbation of COPD - management per pulmonary services Reported h/o CVA in 2006 - details unknown HLD - statin tx H/O "stomach cancer" approx 20 years ago - treated in [place] - details unknown Tobaccoism - cessation advised Plan: * Relatively complex management due to multiple comorbidities. * Monitor labs Thank you for your consultation. Please call me if you have any questions. Maddi Hardy MD, FACP, FACC, FSCAI, FHRS, CCDS Interventional Cardiology Cardiac Electrophysiology Vascular Medicine and Endovascular Interventions Focused Exam Time of Focused Exam: 22:02 Reggie HARDY MD September 22, 2018 18:20
[2018-09-23 00:14] VITALS: BP 101/53
[2018-09-23] MEDS: RT-ALBUTEROL/IPRATROPIUM 3 ML (DUONEB) VIAL IH SCH ×4 (03:09→15:00)
[2018-09-23] MEDS: KCL 10 MEQ TAB (MICRO K) PO SCH (06:34)
[2018-09-23] MEDS: metroNIDAZOLE 500MG/100ML IVPB 100 ML IV SCH ×3 (06:34→21:36)
[2018-09-23] MEDS: FUROSEMIDE 20 MG (LASIX) TAB PO SCH (06:34)
[2018-09-23] MEDS: SUCRALFATE 1 GM (CARAFATE) TAB PO SCH ×4 (06:34→20:47)
[2018-09-23] MEDS: RT-ADVAIR HFA 115/21 MCG PER PUFF IH SCH (06:49)
[2018-09-23 08:00] VITALS: BP 121/58
[2018-09-23] MEDS: cefTRIAXone FOR IV USE 1,000 MG in WATER (STERILE) FOR INJECTION 10 ML IV SCH (08:36)
[2018-09-23] MEDS: PANTOPRAZOLE 40 MG (PROTONIX) VIAL IV SCH ×2 (08:38→20:46)
[2018-09-23] MEDS: ASPIRIN 81 MG CHEW (CHILDREN'S ASA) PO SCH (08:38)
[2018-09-23] MEDS: BISACODYL 5 MG (DULCOLAX) TABLET PO SCH ×2 (08:38→20:47)
[2018-09-23] MEDS: FLUCONAZOLE 200 MG/100 ML 50 ML, EMPTY IV BAG (PVC) 1 EA IV SCH ×2 (08:41)
[2018-09-23] MEDS: D5 NS 1000 ML IV SOLUTION 1,000 ML IV SCH (10:53)
--- NOTE | 2018-09-23 11:24 | Physical Therapy Daily Note ---
PT Daily Note-Current Subjective Pt reports he doesn't want to do anything and will not get out of bed. Pt finally agreed with the help and encouragement of family and nursing Pain Comment: "all over" no pain rating given Appearance Pt in bed upon arrival, family present. Pt gown and bedding wet from urine, assisted pt in changing gown and cleansing. Nursing notified of bedding. Difficulty getting pt to agree to participate in therapy session. Max encouragement and compromising by this MEAT BONER, nursing and pt's son for pt to agree to get out of bed and walk At end of session, pt sitting up in recliner with family present, call light, phone and bedside table within reach Mental Status Patient Orientation: Person, Eyes Open Attachments: Oxygen, IV Transfers Therapy Code Descriptions/Definitions Functional [place] Measure: 0=Not Assessed/NA 4=Minimal Assistance 1=Total Assistance 5=Supervision or Setup 2=Maximal Assistance 6=Modified [place] 3=Moderate Assistance 7=Complete [place] Therapy Quality Codes: 6 Independent with activity with or without an assistive device 5 Patient requires set up or clean up by helper. Patient completes activity by themselves 4 Supervision or touching assist (CGA). [place] provide cues , steadying assist 3 The helper provides less than half the effort to complete the activity 2 The helper provides more than half the effort to complete the activity 1 Dependent. The helper does all the effort to complete an activity 7 Patient refused to complete or attempt activity 9 The patient did not perform the activity before the current illness or injury 88 Not attempted due to Medical conditions or safety concerns Transfers (B, C, W/C) (FIM): 5 Scootin Rollin Supine to/from Sit: 5 Sit to/from Stand: 5 Pt requiring verb instruction and re instruction for safety and hand placement during sit to and from stand transitions throughout tx session. Pt is steady upon standing, required min effort to stand Weight Bearing Right Lower Extremity: Right Full Weight Bearing Left Lower Extremity: Left Full Weight Bearing Gait Training Gait (FIM): 2 Distance (FIM): 2=126-44 ft Distance: 100 Gait Level of Assist: 4 (CGA provided) Gait Persons Needed: 1 Gait Assistive Device: FWW occasional standing rest breaks. No LOB, slight unsteadiness self corrected Treatments bed mobility, transfers, safety, gait, functional mobility, activity tolerance, education on importance of activity Assessment Current Status: Poor Progress Max encouragement and compromising required by this MEAT BONER, nsg staff and pt's family to participated minimally. Pt is not motivated. PT Financial Reporting Advisor Goals Mcfp Goals PT Mcfp Goals Time Frame: September 20, 2018 Transfers (B,C,W/C) (FIM): 7 Gait (FIM): 6 PT Plan Treatment/Plan Treatment Plan: Continue Plan of Care Treatment Plan: Bed Mobility, Education, Functional Activity [place], Functional Strength, Gait, Safety, Therapeutic Exercise, Transfers Treatment Duration: September 20, 2018 Frequency: 6 times per week Estimated Hrs Per Day: .25 hour per day Patient and/or Family Agrees t: Yes Safety Risks/Education Patient Education: Gait Training, Transfer Techniques, Safety Issues Teaching Recipient: Patient, Family Teaching Methods: Demonstration, Discussion Response to Teaching: Verbalize Understanding, Return Demonstration, Reinforcement Needed Time/GCodes Time In: 930 Time Out: 947 Total Billed Treatment Time: 17 Total Billed Treatment 1 visit, GT x 1 unit SEJAL RIVAS PTA September 23, 2018 11:24
--- NOTE | 2018-09-23 12:48 | Progress Note-Cardiology ---
Cardiology SOAP Progress Note Objective: I&O/Vital Signs 09/23/18 09/23/18 09/23/18 09/23/18 03:09 06:48 08:00 08:00 Temp 98.4 Pulse 82 Resp 18 B/P (MAP) 121/58 (79) Pulse Ox 95 93 97 97 O2 Delivery Nasal Cannula Nasal Cannula High Flow N/C High Flow N/C O2 Flow Rate 2.00 2.00 2.00 2.00 09/23/18 11:22 Pulse Ox 97 O2 Delivery Nasal Cannula O2 Flow Rate 2.00 09/23/18 00:00 Intake Total 1350 ml Output Total 1025 ml Balance 325 ml Weight (Pounds): 131 Weight (Ounces): 5.0 Weight (Calculated Kilograms): 59.244847 Constitutional: AAO x 3; No apparent distress; well-developed, other (hard of hearing) Respiratory: No accessory muscle use, No respiratory distress; chest is bilaterally symmetric, other (good bilateral air entry) Cardiovascular: regular rate-rhythm; No JVD; S1 and S2, systolic murmur (soft CRISS at card base) Gastrointestional: No tender; soft; No guarding, No rebound; audible bowel sounds Extremities: No swelling, No clubbing, No cyanosis Neurologic/Psychiatric: no motor/sensory deficits, alert, normal mood/affect, oriented x 3, grossly intact, power is 5/5 both on sides Skin: No rash, No ulcerations; other (Diffuse abdominal bruising) Results/Procedures: Labs Microbiology 09/09/18 Blood Culture - Final, Complete No growth 09/18/18 Fungal Culture 1 - Preliminary, Resulted Martine krusei Laboratory Tests 09/21/18 06:31 A/P: Assessment: GI bleed (coffee-ground emesis) and blood loss anemia, esophageal candidiasis and esophagitis diagnosed on upper endoscopy of 09/18/[address] Shell Abdominal wall hematoma Mild, acute diastolic CHF Elevated troponin, likely type 2 ID due to resp failure/sepsis Echo of : LVEF 60-65%, no regional wall motion abnormality, PASP within normal limits Pneumonia with sepsis - management per pulmonary services Liver enzyme elevation of undetermined etiology Acute exacerbation of COPD - management per pulmonary services Reported h/o CVA in 2005 - details unknown HLD - statin tx H/O "stomach cancer" approx 20 years ago - treated in [place] - details unknown Tobaccoism - cessation advised Plan: * Relatively complex management due to multiple comorbidities * Repeat labs KAISER LEDESMA MD FACP FACC CCDS September 23, 2018 12:48
--- NOTE | 2018-09-23 14:07 | NUR ---
CM/SS, final discharge planning. Discussed HHC and DME with patient and his son, Isac Li. Will coordinate services with their preferred agencies as noted: HHC: Will be ordered for RN, PT and OT. Will complete referral with [facility] once physician orders are entered. DME: Will get FWW from [facility] once orders entered. Son inquired about bath bench and stool supervisor inspection room. Discussed these are not covered until Medicare, encouraged son to check with Dash and Carly. Patient is excited about returning home. Followup in a.m. Addendum: 09/23/18 at 1417 by LAURIE MARTIN [facility] reviewed with patient/son today for anticipated discharge tomorrow. Son Isac signed on behalf of his dad, no hesitation about discharge, no intention to appeal.
--- NOTE | 2018-09-23 14:17 | D/C HH Face to Face Order ---
D/C Face to Face Orders Instructions for Patient Via [employer], Patient Instructions/FollowUp: - F.u appt with Dr Gonzalez on 09/30 @ 1140 AM Physician to follow Patient: Carlos Discharge Diet for Home: No Restrictions Patient Problems: Severe Sepsis Pulmonary Embolism Acute GI bleed COPD Exacerbation Increased Troponin Abdominal Wall Hematoma Goals for Patient: - Independent ADLs - Increase ambulatory stability Patient Data-Allergies,Ht & Wt Patient Allergies: Coded Allergies: Penicillins (Verified Allergy, Unknown, 09/09/18) Height (Feet): 5 Height (Inches): 8.00 Weight (Pounds): 131 Weight (Ounces): 5.0 Home Health Need/Face to Face Date of Face to Face: September 23, 2018 Clinical Findings: Generalized weakness and fatigue, Instability, Muscle weakness, Unsteady gait, Other-list in note (Large abdominal hematoma) I have seen Pt [id number]: Yes Discharged To: Home Diagnosis/Conditions: See Above Patient is Homebound due to: Danny fall risk due to instabilty, Muscle weakness , Shortness of breath/distress Homebound Status Due to the above stated illness, injury or surgical procedure (medical condition or diagnosis) and associated clinical findings, the patient is homebound because of his/her inability to leave home except with aid of a supportive device and/or person AND leaving the home requires a considerable and taxing effort or is medically contraindicated. Pt req the following assistanc: Aid of another person, Walker Home Health Nursing Orders Home Health Services Order: Nursing Services, Dynamometer Tester Engine-Evaluate & Treat, Physical Therapy-Evaluate & Treat, Wound Care-Eval/Treat (Abdominal hematoma) Home Health Infusion Therapy Line Start Date: September 18, 2018 Therapy Orders Therapy Orders: OT (must have SN or PT order), PT to assess for OT Therapy Specific Orders: Eval assistive deivces, Teach enviro modifications/ safety, Gait training, Increase strength/endurance Certify Stmt I certify that this patient is under my care and that I, a nurse practitioner or a physician; a gift shop assistant working with me, had a face to face encounter that - meets the physician face to face encounter requirements with this patient as dated. SOFI DUNN MD September 23, 2018 14:15
[2018-09-23] MEDS ORDERED: RT-ALBUTEROL/IPRATROPIUM 3 ML (DUONEB) VIAL IH PRN (15:15)
[2018-09-23 15:52] VITALS: BP 119/60
--- NOTE | 2018-09-23 17:13 | Progress Note (SOAP) ---
Subjective Subjective/Events-last exam Patient states that he feels the same as yesterday. Does not like to participate with PT. Patient is adamant about going home with son. Tolerating PO diet but has poor appetite. Review of Systems Date Seen by Provider: September 23, 2018 Time Seen by Provider: 13:15 Pulmonary: No Dyspnea, No Cough Cardiovascular: No: Chest Pain, Palpitations Gastrointestinal: Nausea (occassional); No: Vomiting Musculoskeletal: other (Left side pain) Neurological: Weakness Focused Exam Time of Focused Exam: 22:02 Objective Exam Last Set of Vital Signs Vital Signs Date Time Temp Pulse Resp B/P (MAP) Pulse Ox O2 Delivery O2 Flow Rate FiO2 09/23/18 15:52 99.2 84 18 119/60 (79) 92 Room Air 09/23/18 11:22 2.00 Capillary Refill : Less Than 3 Seconds I&O Intake and Output 09/23/18 00:00 Intake Total 2650 ml Output Total 1325 ml Balance 1325 ml Intake Oral 1450 ml IV Total 1200 ml Output Urine Total 1325 ml # Voids 1 General: Alert, Oriented X3, Cooperative, No Acute Distress Lungs: Clear to Auscultation, Normal Air Movement Heart: Regular Rate, No Murmurs Abdomen: Normal Bowel Sounds, Soft, No Tenderness Extremities: No Edema, No Tenderness/Swelling Skin: Other (Large left abdominal hematoma, 1+ edema ) Results/Procedures Lab Microbiology 09/09/18 Blood Culture - Final, Complete No growth 09/18/18 Fungal Culture 1 - Preliminary, Resulted Martine krusei Radiology NAME: SELENA JARAMILLO [facility] REC#: [id number] PT STATUS: ADM IN : 1945 PHYSICIAN: ILIA PERRY MD ADMIT DATE: 09/09/18/ICU Signed Date of Exam: 09/10/18 CHEST 1 VIEW, AP/PA ONLY INDICATION: Sepsis, pneumonia, COPD. TECHNIQUE: Frontal view of the chest. COMPARISON: 09/09/2018 FINDINGS: Lung volumes are large. There are airspace and interstitial opacities in the lung bases. The cardiac silhouette is normal in size. No pneumothorax or pleural effusion is seen. IMPRESSION: 1. Stable bibasilar pulmonary opacities, which are age-indeterminate. These may represent chronic scarring versus acute infiltrate. Dictated by: Dictated on workstation # [id number] Dict: 09/10/18 0803 Trans: 09/10/18 1041 Interpreted by: JEAN MARIE WASHINGTON MD Electronically signed by: JEAN MARIE WASHINGTON MD 09/10/18 1041 Assessment/Plan Assessment/Plan (1) Acute blood loss anemia Status: Acute Assessment & Plan: 09/23: Likely 2/2 abdominal hematoma, required transfusions s /p 3 units pRBCs, Will give Venofer today and tomorrow prior to d.c (2) Abdominal hematoma Status: Acute (3) Respiratory failure Status: Resolved Assessment & Plan: Requiring vapotherm on admission. Improved this am and on 4 lpm nasal cannula. Suspect secondary to COPD exacerbation, possible pneumonia. Dr. Odonnell consulted, appreciate recommendations. CTA chest pending. 09/11 CTA chest with PE, see below. 09/14 -Patient overall is improving. He is now off Vapotherm. 09/15 -Overall patient continues to improve he is on 4 L nasal cannula oxygen. RT has attempted to decrease this to 3 L of nasal cannula oxygen but he is not quite ready. -We'll maintain him on Solu-Medrol 40 mg every 6 hours for now. -I spoke with patient as well as his son about the potential for needing oxygen at home. He was made aware that he needs to quit cigarettes but he has no desire to quit. 09/23: Patient is off oxygen, will not require at d/c Qualifiers: Qualified Codes: J96.01 - Acute respiratory failure with hypoxia (4) Severe sepsis Status: Resolved Assessment & Plan: Suspected secondary to pneumonia with respiratory failure and WBC elevated on admit. No elevation in lactic acid and no hypotension. CXR without clear evidence of pneumonia, started on cefepime from ER, will continue while blood cultures pending. 09/14 -Cefepime continues at 1 g every 6 hours. 09/15 -We'll check chest x-ray today (5) Pneumonia Status: Acute Assessment & Plan: Possible given leukocytosis and respiratory failure, however CXR not convincing. Continue cefepime for now, leukocytosis resolved. CT chest pending, blood cultures pending. 09/11 blood cx no significant growth to date, may consider d/c abx tomorrow 09/12 Blood cx still negative for pathogen, however given worsening respiratory status last night will continue abx. 09/15 -As mentioned chest x-ray will be performed today. Qualifiers: Qualified Codes: J18.1 - Lobar pneumonia, unspecified organism (6) Elevated troponin Status: Acute Assessment & Plan: Suspect related to hypoxia, Cardiology consulted, appreciate recommendations. (7) COPD exacerbation Status: Resolved Assessment & Plan: IV solumedrol, duonebs. Dr. Odonnell consulted, appreciate recommendations. 09/14 -His white blood cell count is 20.3 and I suspect this is steroid effects due to the treatment of his COPD. 09/15 -Solu-Medrol continues at 40 mg every 6 hours. He will ultimately need to prednisone tapering upon dismissal (8) Pulmonary embolism Status: Acute Assessment & Plan: Started on enoxaparin therapeutic dosing per Dr. Odonnell. 09/14 -Patient continues with Lovenox 60 mg twice daily. 09/15 -I informed patient as well as his son that most likely he will need to be switched over to Xarelto within the next few days in preparation for home treatment of the PE. Qualifiers: (9) DVT prophylaxis Status: Acute Assessment & Plan: Enoxaparin (10) Discharge planning issues Status: Acute Assessment & Plan: Patient wanting to go home, discussed that his status is not currently safe for discharge, discussed with him and his family, if he does not improve, may want to consider palliative care consult. 09/23: Patient desires d/c home, will send with home health Clinical Quality Measures DVT/VTE Risk/Contraindication: Risk Factor Score Per Nursin RFS Level Per Nursing on Admit: 4+=Very High SOFI DUNN MD September 23, 2018 17:13
[2018-09-23] MEDS ORDERED: IRON SUCROSE 200 MG/10 ML (VENOFER) VIAL IV NR (17:15)
[2018-09-24 00:20] VITALS: BP 113/56
[2018-09-24] MEDS: metroNIDAZOLE 500MG/100ML IVPB 100 ML IV SCH (05:43)
[2018-09-24 06:01] LABS: HEMOGLOBIN 9.6 G/DL (13.3-17.7); MEAN PLATELET VOLUME 8.7 FL (7.4-10.4); RED CELL DISTRIBUTION WIDTH 14.7 % (10.0-14.5)
[2018-09-24 06:22] LABS: BUN/CREATININE RATIO 19; CALCIUM 8.3 MG/DL (8.5-10.1); CARBON DIOXIDE 28 MMOL/L (21-32); CHLORIDE 102 MMOL/L (98-107); CREATININE SERUM 0.97 MG/DL (0.60-1.30); GFR ESTIMATED > 60; GLUCOSE 98 MG/DL (70-105); MAGNESIUM 1.7 MG/DL (1.8-2.4); POTASSIUM 3.8 MMOL/L (3.6-5.0); SODIUM 138 MMOL/L (135-145)
[2018-09-24] MEDS: SUCRALFATE 1 GM (CARAFATE) TAB PO SCH ×2 (06:23→11:21)
[2018-09-24] MEDS: FUROSEMIDE 20 MG (LASIX) TAB PO SCH (06:23)
[2018-09-24] MEDS: KCL 10 MEQ TAB (MICRO K) PO SCH (06:23)
[2018-09-24 08:00] VITALS: BP 120/58
[2018-09-24] MEDS: FLUCONAZOLE 200 MG/100 ML 50 ML, EMPTY IV BAG (PVC) 1 EA IV SCH ×2 (08:33)
[2018-09-24] MEDS: cefTRIAXone FOR IV USE 1,000 MG in WATER (STERILE) FOR INJECTION 10 ML IV SCH (08:33)
[2018-09-24] MEDS: PANTOPRAZOLE 40 MG (PROTONIX) VIAL IV SCH (08:38)
[2018-09-24] MEDS: ASPIRIN 81 MG CHEW (CHILDREN'S ASA) PO SCH (08:39)
[2018-09-24] MEDS: BISACODYL 5 MG (DULCOLAX) TABLET PO SCH (08:39)
--- NOTE | 2018-09-24 09:41 | Progress Note-Cardiology ---
Cardiology SOAP Progress Note Subjective: Sitting up in bed. Denies any c/o CP, dyspnea or palpitations. Wants to go home today. Son at the bedside. Objective: I&O/Vital Signs 09/24/18 09/24/18 09/24/18 09/24/18 00:20 03:41 08:00 08:50 Temp 99.1 98.3 97.4 Pulse 78 67 Resp 22 20 B/P (MAP) 113/56 (75) 120/58 (78) Pulse Ox 90 97 O2 Delivery Room Air High Flow N/C Room Air O2 Flow Rate 2.00 09/24/18 00:00 Intake Total 1590 ml Output Total 1900 ml Balance -310 ml Weight (Pounds): 131 Weight (Ounces): 5.0 Weight (Calculated Kilograms): 59.143791 Constitutional: AAO x 3; No apparent distress; well-developed, other (hard of hearing) Respiratory: No accessory muscle use, No respiratory distress; chest is bilaterally symmetric, other (good bilateral air entry) Cardiovascular: regular rate-rhythm; No JVD; S1 and S2, systolic murmur (soft CRISS at card base) Gastrointestional: No tender; soft; No guarding, No rebound; audible bowel sounds Extremities: No swelling, No clubbing, No cyanosis Neurologic/Psychiatric: no motor/sensory deficits, alert, normal mood/affect, oriented x 3, grossly intact, power is 5/5 both on sides Skin: No rash, No ulcerations; other (Diffuse abdominal bruising) Results/Procedures: Labs Laboratory Tests 09/24/18 05:55: White Blood Count 13.0H, Red Blood Count 3.16L, Hemoglobin 9.6L, Hematocrit 29L , Mean Corpuscular Volume 90, Mean Corpuscular Hemoglobin 30, Mean Corpuscular Hemoglobin Concent 34, Red Cell Distribution Width 14.7H, Platelet Count 346, Mean Platelet Volume 8.7, Sodium Level 138, Potassium Level 3.8, Chloride Level 102, Carbon Dioxide Level 28, Anion Gap 8, Blood Urea Nitrogen 18, Creatinine 0.97, Estimat Glomerular Filtration Rate > 60, BUN/Creatinine Ratio 19, Glucose Level 98, Calcium Level 8.3L, Magnesium Level 1.7L Microbiology 09/09/18 Blood Culture - Final, Complete No growth 09/18/18 Fungal Culture 1 - Preliminary, Resulted Martine krusei A/P: Assessment: GI bleed (coffee-ground emesis) and blood loss anemia, esophageal candidiasis and esophagitis diagnosed on upper endoscopy of 09/18/[address] Shell Abdominal wall hematoma - improved Mild, acute diastolic CHF - clinicaaly compensated Elevated troponin, likely type 2 PA due to resp failure/sepsis Echo of : LVEF 60-65%, no regional wall motion abnormality, PASP within normal limits Pneumonia with sepsis - management per pulmonary services PE per CTA on 09-10-18 - management per pulmonary/medical services Liver enzyme elevation of undetermined etiology Acute exacerbation of COPD - management per pulmonary services Reported h/o CVA in 2005 - details unknown HLD - statin tx H/O "stomach cancer" approx 20 years ago - treated in [place] - details unknown Tobaccoism - cessation advised Plan: * Relatively complex management due to multiple comorbidities * Follow lab * Plan is to d/c home with HH per medical services today * Advise out pt in 2 weeks Physician Assessment Physician Assessment No cp or palp or syncope. Exertional shortness of breath at usual baseline. Gen weakness and malaise, somewhat better Lungs: fair to good air entry Cor: reg Ext: no c/c/e A&R * As documented in our note above that I updated (italics) and as noted below * We reviewed risk factor mod * Outpt f/u advised RAISA MONTERO [facility] September 24, 2018 09:41 KAISER LEDESMA MD FACP [facility] September 24, 2018 11:31
--- NOTE | 2018-09-24 10:43 | Physical Therapy Daily Note ---
PT Daily Note-Current Subjective Pt agreeable to PT session this morning. Pain Numeric Pain Scale: 0-No Pain Appearance Upon arrival, pt in bed awake and alert, OHKAY OWINGEH, family members present At end of session, pt supine in bed, per pt request, with HOB elevated, call light, phone and bedside table within reach. Family members present and states that pt is going home today Mental Status Attachments: Saline Lock, IV Transfers Therapy Code Descriptions/Definitions Functional [place] Measure: 0=Not Assessed/NA 4=Minimal Assistance 1=Total Assistance 5=Supervision or Setup 2=Maximal Assistance 6=Modified [place] 3=Moderate Assistance 7=Complete [place] Therapy Quality Codes: 6 Independent with activity with or without an assistive device 5 Patient requires set up or clean up by helper. Patient completes activity by themselves 4 Supervision or touching assist (CGA). [place] provide cues , steadying assist 3 The helper provides less than half the effort to complete the activity 2 The helper provides more than half the effort to complete the activity 1 Dependent. The helper does all the effort to complete an activity 7 Patient refused to complete or attempt activity 9 The patient did not perform the activity before the current illness or injury 88 Not attempted due to Medical conditions or safety concerns Transfers (B, C, W/C) (FIM): 5 Scootin Rollin Supine to/from Sit: 6 Sit to/from Stand: 5 pt requiring verb instruction for safety, hand placement, technique during sit to stand transfers, following instruction most times. Instruction given to family members that will be at home with patient Weight Bearing Right Lower Extremity: Right Full Weight Bearing Left Lower Extremity: Left Full Weight Bearing Gait Training Distance (FIM): 3=150 ft Distance: 156 Gait Level of Assist: 5 Gait Persons Needed: 1 Gait Assistive Device: FWW no LOB, CGA to SBA, BLE ER with heels touching, slight unsteadiness at times but able to self correct Stair Training Stair Training: Handrails/: 2 handrails #of Steps: 3 Stairs: Pattern: Step to Level of Assist: 5 CGA and instruction provided. CG instruction also provided Treatments bed mobility, transfers, safety, gait, stairs, education, CG training, activity tolerance, functional mobility Assessment Current Status: Good Progress PT Longterm Goals Dramatic Critic Goals PT Dramatic Critic Goals Time Frame: September 20, 2018 Transfers (B,C,W/C) (FIM): 7 Gait (FIM): 6 PT Plan Treatment/Plan Treatment Plan: Continue Plan of Care Treatment Plan: Bed Mobility, Education, Functional Activity [place], Functional Strength, Gait, Safety, Therapeutic Exercise, Transfers Treatment Duration: September 20, 2018 Frequency: 6 times per week Estimated Hrs Per Day: .25 hour per day Patient and/or Family Agrees t: Yes Safety Risks/Education Patient Education: Gait Training, Transfer Techniques, Steps, Instructions to Caregiver, Safety Issues Teaching Recipient: Patient, Family Teaching Methods: Demonstration, Discussion Response to Teaching: Verbalize Understanding, Return Demonstration, Reinforcement Needed Time/GCodes Time In: 920 Time Out: 947 Total Billed Treatment Time: 27 Total Billed Treatment 1 visit, GT x 2 units SEJAL RIVAS PTA September 24, 2018 10:43
--- NOTE | 2018-09-24 11:26 | NUR ---
LEFT UPPER MIDLINE REMOVED WITHOUT DIFFICULTY. 2X2'S IN PLACE. PT DENIES ANY NEEDS AT THIS TIME. FAMILY AT BEDSIDE. CALL LIGHT WITHIN REACH.
--- NOTE | 2018-09-24 11:32 | Discharge Summary ---
Diagnosis/Chief Complaint Date of Admission Sep 09, 2018 at 21:45 Date of Discharge Discharge Diagnosis Problems/Diagnosis: (1) Acute blood loss anemia Assessment & Plan: 09/23: Likely 2/2 abdominal hematoma, required transfusions s /p 3 units pRBCs, Will give Venofer today and tomorrow prior to d.c Status: Acute (2) Abdominal hematoma Status: Acute (3) Respiratory failure Assessment & Plan: Requiring vapotherm on admission. Improved this am and on 4 lpm nasal cannula. Suspect secondary to COPD exacerbation, possible pneumonia. Dr. Odonnell consulted, appreciate recommendations. CTA chest pending. 09/11 CTA chest with PE, see below. 09/14 -Patient overall is improving. He is now off Vapotherm. 09/15 -Overall patient continues to improve he is on 4 L nasal cannula oxygen. RT has attempted to decrease this to 3 L of nasal cannula oxygen but he is not quite ready. -We'll maintain him on Solu-Medrol 40 mg every 6 hours for now. -I spoke with patient as well as his son about the potential for needing oxygen at home. He was made aware that he needs to quit cigarettes but he has no desire to quit. 09/23: Patient is off oxygen, will not require at d/c Qualifiers: Qualified Codes: J96.01 - Acute respiratory failure with hypoxia Status: Resolved Resolution Date/Time: 09/16/18 @ 21:01 (4) Severe sepsis Assessment & Plan: Suspected secondary to pneumonia with respiratory failure and WBC elevated on admit. No elevation in lactic acid and no hypotension. CXR without clear evidence of pneumonia, started on cefepime from ER, will continue while blood cultures pending. 09/14 -Cefepime continues at 1 g every 6 hours. 09/15 -We'll check chest x-ray today Status: Resolved Resolution Date/Time: 09/11/18 @ 16:16 (5) Pneumonia Assessment & Plan: Possible given leukocytosis and respiratory failure, however CXR not convincing. Continue cefepime for now, leukocytosis resolved. CT chest pending, blood cultures pending. 09/11 blood cx no significant growth to date, may consider d/c abx tomorrow 09/12 Blood cx still negative for pathogen, however given worsening respiratory status last night will continue abx. 09/15 -As mentioned chest x-ray will be performed today. Qualifiers: Qualified Codes: J18.1 - Lobar pneumonia, unspecified organism Status: Acute (6) Elevated troponin Assessment & Plan: Suspect related to hypoxia, Cardiology consulted, appreciate recommendations. Status: Acute (7) COPD exacerbation Assessment & Plan: IV solumedrol, duonebs. Dr. Odonnell consulted, appreciate recommendations. 09/14 -His white blood cell count is 20.3 and I suspect this is steroid effects due to the treatment of his COPD. 09/15 -Solu-Medrol continues at 40 mg every 6 hours. He will ultimately need to prednisone tapering upon dismissal Status: Resolved Resolution Date/Time: 09/23/18 @ 17:12 (8) Pulmonary embolism Assessment & Plan: Started on enoxaparin therapeutic dosing per Dr. Odonnell. 09/14 -Patient continues with Lovenox 60 mg twice daily. 09/15 -I informed patient as well as his son that most likely he will need to be switched over to Xarelto within the next few days in preparation for home treatment of the PE. Qualifiers: Status: Acute (9) DVT prophylaxis Assessment & Plan: Enoxaparin Status: Acute (10) Discharge planning issues Assessment & Plan: Patient wanting to go home, discussed that his status is not currently safe for discharge, discussed with him and his family, if he does not improve, may want to consider palliative care consult. 09/23: Patient desires d/c home, will send with home health Status: Acute Chief Complaint/HPI Chief Complaint/HPI 73 yo male sent to ER from walk-in care due to oxygen saturation in the 60s on arrival. He states he is feeling much better this am. He denies any history of medical problems, but on further questioning, he has been on two inhalers for a year or so, and states he takes them regularly. He denies fever, chest pain, cough. He started feeling more short of breath in the last few weeks and had initially had some URI type symptoms. He receives his routine medical care from the [place]. Discharge Summary-Simple/Stand Consultations Discharge Physical Examination Allergies: Coded Allergies: Penicillins (Verified Allergy, Unknown, 09/09/18) Vitals & I&Os Vital Sign - Last 12Hours Date Time Temp Pulse Resp B/P (MAP) Pulse Ox O2 Delivery O2 Flow Rate FiO2 09/24/18 08:50 Room Air 5/14/19 08:00 97.4 67 20 120/58 (78) 97 2.00 Intake and Output 09/24/18 00:00 Intake Total 1590 ml Output Total 1900 ml Balance -310 ml Hospital Course See final discharge diagnosis. Radiology Reviewed NAME: SELENA JARAMILLO [facility] REC#: [id number] PT STATUS: ADM IN : 1945 PHYSICIAN: ILIA PERRY MD ADMIT DATE: 09/09/18/ICU Signed Date of Exam: 09/10/18 CHEST 1 VIEW, AP/PA ONLY INDICATION: Sepsis, pneumonia, COPD. TECHNIQUE: Frontal view of the chest. COMPARISON: 09/09/2018 FINDINGS: Lung volumes are large. There are airspace and interstitial opacities in the lung bases. The cardiac silhouette is normal in size. No pneumothorax or pleural effusion is seen. IMPRESSION: 1. Stable bibasilar pulmonary opacities, which are age-indeterminate. These may represent chronic scarring versus acute infiltrate. Dictated by: Dictated on workstation # [id number] Dict: 09/10/18 0803 Trans: 09/10/18 1041 Interpreted by: JEAN MARIE WASHINGTON MD Electronically signed by: JEAN MARIE WASHINGTON MD 09/10/18 1041 Discharge Instructions to patient/family Please see electronic discharge instructions given to patient. Discharge Medications Reviewed and agree with Discharge Medication list on patient's Discharge Instruction sheet Clinical Quality Measures DVT/VTE Risk/Contraindication: Risk Factor Score Per Nursin RFS Level Per Nursing on Admit: 4+=Very High SOFI DUNN MD September 24, 2018 11:32
[2018-09-24] MEDS ORDERED: PANT40TA2 PO (11:36)
[2018-09-24] MEDS ORDERED: POTA10TA6 PO (11:36)
[2018-09-24] MEDS ORDERED: FLUT12AE4 IH (11:36)
[2018-09-24] MEDS ORDERED: SUCR1TAB PO (11:36)
[2018-09-24] MEDS ORDERED: FURO20TA4 PO (11:36)
[2018-09-24] MEDS ORDERED: ASPI-999 PO (11:36)
[2018-09-24 12:48] VITALS: BP 120/58
--- NOTE | 2018-09-24 13:06 | NUR ---
CM/SS. Patient discharged home with his son as before. HHC: Finalized with [facility]. DME: [facility] coordinated with [facility] and son picked up for home use.
[2018-10-09] MEDS ORDERED: RIVAROXABAN 20 MG TABLET (XARELTO) PO SCH (17:00)
== END 2018-09-24 12:49 | disposition home health service (06) | DRG 871 ==
LOC: EDUNIT# 19:45 → ER 19:46 → ICU 21:45 → 4TH 09-11 10:25
PROVIDERS: ADMIT Family Medicine; ATTEND Family Medicine
PROC: 0DB48ZX Excision of Esophagogastric Junction, Via Natural or Artificial Opening Endoscopic, Diagnostic (ICD-10-PCS; 2018-09-18)
PROC: 0DD58ZX Extraction of Esophagus, Via Natural or Artificial Opening Endoscopic, Diagnostic (ICD-10-PCS; 2018-09-18)
PROC: 0DB78ZX Excision of Stomach, Pylorus, Via Natural or Artificial Opening Endoscopic, Diagnostic (ICD-10-PCS; principal; 2018-09-18 12:30)
DX: A41.9 Sepsis, unspecified organism (principal); R65.20 Severe sepsis without septic shock; J96.21 Acute and chronic respiratory failure with hypoxia; J18.1 Lobar pneumonia, unspecified organism; I21.A1 Myocardial infarction type 2; I50.31 Acute diastolic (congestive) heart failure; I26.99 Other pulmonary embolism without acute cor pulmonale; B37.81 Candidal esophagitis; Z66 Do not resuscitate; D62 Acute posthemorrhagic anemia; E87.2 Acidosis; E86.0 Dehydration; J43.9 Emphysema, unspecified; R23.3 Spontaneous ecchymoses; E78.5 Hyperlipidemia, unspecified; F17.210 Nicotine dependence, cigarettes, uncomplicated; K29.70 Gastritis, unspecified, without bleeding; K44.9 Diaphragmatic hernia without obstruction or gangrene; K21.0 Gastro-esophageal reflux disease with esophagitis; H91.13 Presbycusis, bilateral; Z86.73 Personal history of transient ischemic attack (TIA), and cerebral infarction without residual deficits; Z85.028 Personal history of other malignant neoplasm of stomach; Z85.46 Personal history of malignant neoplasm of prostate
CPT/HCPCS: 36415; 71045; 71046; 71275; 74177; 76700; 76937; 80048; 80053; 81000; 82805; 83605; 83735; 83880; 84100; 84484; 85007; 85025; 85027; 85610; 85730; 86141; 86850; 86900; 86901; 86920; 87040; 87081; 87101; 87106; 87804; 88305; 88342; 93005; 93041; 93306; 94640; 94660; 94760; 94761; 96361; 96365

== ENCOUNTER → 2018-10-29 | Outpatient (CLI) | payer MEDICARE, OTHER ==
[~2018-10-29] MED LIST: ASPI-983 PO; ASPI-999 PO; CATHETER FLUSH 10 ML SYR IV PRN; FLUT12AE4 IH; FURO20TA4 PO; PANT40TA2 PO; POTA10TA6 PO; REGADENOSON 0.4 MG/5 ML SYR (LEXISCAN) IV ONE; RT-ALBUINH IH; SIMV10TA3 PO; SUCR1TAB PO; VIT1CAPS44 PO
[2018-10-29 09:03] VITALS: BP 115/81
--- NOTE | 2018-10-29 21:25 | STRESS TEST ---
DATE OF SERVICE: 10/29/2018 RESTING AND POST REGADENOSON TECHNETIUM-99M TETROFOSMIN SPECT CT IMAGING Baseline images were carried out after injection of 10.36 mCi of technetium-99m Tetrofosmin. Subsequently, the patient received 0.4 mg regadenoson by vein and this was followed by 29.3 mCi of technetium-99m Tetrofosmin for stress imaging. The electrocardiogram showed sinus rhythm at baseline. There was nonspecific T-wave abnormality at baseline that did not change significantly with the regadenoson infusion. The patient tolerated the procedure well. Review of images at rest and following stress indicates an inferoapical perfusion defect which appears transient and appears moderate in size. Gated images show normal global left ventricular systolic function, normal regional wall motion. Left ventricular ejection fraction is calculated to be 64%. Left ventricular end diastolic volume is 50 mL. TID is absent (1.12%). CONCLUSIONS: 1. The study is indicative of inferoapical ischemia. 2. Normal regional wall motion. 3. Normal global left ventricular systolic function with a calculated ejection fraction of 64%. Job ID: [id number] DocumentID: [id number] Dictated Date: 10/29/2018 18:58:48 Real Estate Manager Date: 10/29/2018 21:24:30 Dictated By: KAISER LEDESMA MD, MA, FACP, FACC,
== END ==
LOC: CARD 07:28
PROVIDERS: ATTEND Internal Medicine Cardiovascular Disease
DX: R06.02 Shortness of breath (principal); Z86.79 Personal history of other diseases of the circulatory system; Z72.0 Tobacco use
CPT/HCPCS: 78452; 93017

== ENCOUNTER 2018-11-05 10:32 | Day surgery (SDC) | payer MEDICARE, OTHER ==
[~2018-11-05] VITALS: Ht 170.2 cm; Wt 54.4 kg
[2018-11-05] VITALS (11 sets, daily range): BP systolic 107–129; BP diastolic 50–66
[~2018-11-05 10:32] MED LIST changes: -CATHETER FLUSH 10 ML SYR IV PRN; -REGADENOSON 0.4 MG/5 ML SYR (LEXISCAN) IV ONE
--- OUTSIDE RECORDS SUMMARY | 2018-11-05 10:36 | XMS REPORT ---
Author Author Migration, Doctor Organization [facility] Address Unknown Phone Unavailable Care Team Providers Care Senior Sales Representative Name Role Phone Migration, Doctor Unavailable Unavailable PROBLEMS No Known Problems ALLERGIES No Information ENCOUNTERS Encounter Location Date Diagnosis [facility] [id number] [place] [phone] September, [facility] [id number] [place] [phone] September, [facility] [id number] [place] [phone] Aug, Wheezing R06.2 and Acute respiratory distress R06.03 [facility] [id number] [place] [phone] Aug, [facility] [id number] [place] [phone] Aug, [facility] [id number] [place] [phone] Aug, [facility] [id number] [place] [phone] Jun, [facility] [id number] [place] [phone] Jun, [facility] [id number] [place] [phone] May, [facility] [id number] [place] [phone] May, [facility] [id number] [place] [phone] Apr, [facility] [id number] [place] [phone] Apr, [facility] [id number] [place] [address] Mar, [facility] [address] [place] [address] Mar, [facility] [id number] [place] [address] Mar, [facility] [id number] [place] [address] Mar, [facility] [id number] [place] [id number] Mar, [facility] [id number] [place] [address] Mar, [facility] [id number] [place] [address] Mar, IMMUNIZATIONS No Known Immunizations SOCIAL HISTORY Never Assessed REASON FOR VISIT [facility] [place] PLAN OF CARE VITAL SIGNS MEDICATIONS Unknown Medications RESULTS No Results PROCEDURES No Known procedures INSTRUCTIONS MEDICATIONS ADMINISTERED No Known Medications MEDICAL (GENERAL) HISTORY Type Description Date Medical History Other and unspecified hyperlipidemia Medical History Other and unspecified hyperlipidemia Medical History Nondependent tobacco use disorder Medical History Unspecified disorder of kidney and ureter Medical History Special screening for malignant neoplasm of prostate Surgical History No know Surgical history
[2018-11-05] MEDS ORDERED: HEParin (CATH LAB) 2,000 ML IV ONE (10:37)
[2018-11-05] MEDS ORDERED: LIDOCAINE 1% INJ 20 ML 20 ML VIAL ONE (10:37)
--- OUTSIDE RECORDS SUMMARY | 2018-11-05 10:38 | XMS REPORT | Continuity of Care Document ---
Author Organization Unknown Address Unknown Allergies Active Description Code Type Severity Reaction Onset Reported/Identified Relationship to Patient Clinical Status Yes Penicillins Drug Allergy 04/03/2012 Yes No Known Drug Allergies [id number] Drug Allergy Unknown N/A 09/09/2018 Yes Penicillins [id number] Drug Allergy Unknown N/A 09/09/2018 Medications There is no data. Problems Date [...] 593.9 RENAL INSUFFICIENCY 05/17/2012 593.9 RENAL INSUFFICIENCY 09/11/2018 ILIA PERRY MD, Ot A41.9 SEPSIS, UNSPECIFIED ORGANISM 09/11/2018 ILIA PERRY MD, Ot J18.1 LOBAR PNEUMONIA, UNSPECIFIED ORGANISM 09/11/2018 ILIA PERRY MD, Ot J44.1 CHRONIC OBSTRUCTIVE PULMONARY DISEASE W 09/11/2018 ILIA PERRY MD, Ot J96.01 ACUTE RESPIRATORY FAILURE WITH HYPOXIA 09/11/2018 ILIA PERRY MD Ot N42.9 DISORDER OF PROSTATE, UNSPECIFIED 09/11/2018 ILIA PERRY MD Ot R65.20 SEVERE SEPSIS WITHOUT SEPTIC SHOCK 09/11/2018 ILIA PERRY MD Ot R79.89 OTHER SPECIFIED ABNORMAL FINDINGS OF BLO 09/11/2018 ILIA PERRY MD Ot A41.9 SEPSIS, UNSPECIFIED ORGANISM 09/11/2018 ILIA PERRY MD Ot E78.5 HYPERLIPIDEMIA, UNSPECIFIED 09/11/2018 ILIA PERRY MD Ot F17.210 NICOTINE DEPENDENCE, CIGARETTES, UNCOMPL 09/11/2018 ILIA PERRY MD Ot I21.A1 MYOCARDIAL INFARCTION TYPE 2 09/11/2018 ILIA PERRY MD, Ot J18.1 LOBAR PNEUMONIA, UNSPECIFIED ORGANISM 09/11/2018 ILIA PERRY MD, Ot J44.1 CHRONIC OBSTRUCTIVE PULMONARY DISEASE W 09/11/2018 ILIA PERRY MD Ot J96.21 ACUTE AND CHRONIC RESPIRATORY FAILURE [place] 09/11/2018 ILIA PERRY MD Ot R65.20 SEVERE SEPSIS WITHOUT SEPTIC SHOCK 09/11/2018 ILIA PERRY MD Ot Z66 DO NOT RESUSCITATE 09/11/2018 ILIA PERRY MD Ot Z85.028 PERSONAL HISTORY OF OTHER MALIGNANT NEOP 09/11/2018 ILIA PERRY MD Ot Z85.46 PERSONAL HISTORY OF MALIGNANT NEOPLASM O 09/11/2018 ILIA PERRY MD Ot Z86.73 PRSNL HX OF TIA (TIA), AND CEREB INFRC W 09/17/2018 ILAI PERRY MD, Ot A41.9 SEPSIS, UNSPECIFIED ORGANISM 09/17/2018 ILIA PERRY MD, Ot E78.5 HYPERLIPIDEMIA, UNSPECIFIED 09/17/2018 ILIA PERRY MD Ot F17.210 NICOTINE DEPENDENCE, CIGARETTES, UNCOMPL 09/17/2018 ILIA PERRY MD Ot I21.A1 MYOCARDIAL INFARCTION TYPE 2 09/17/2018 ILIA PERRY MD Ot J18.1 LOBAR PNEUMONIA, UNSPECIFIED ORGANISM 09/17/2018 ILIA PERRY MD Ot J44.1 CHRONIC OBSTRUCTIVE PULMONARY DISEASE W 09/17/2018 ILIA PERRY MD Ot J96.21 ACUTE AND CHRONIC RESPIRATORY FAILURE [place] 09/17/2018 ILIA PERRY MD Ot R65.20 SEVERE SEPSIS WITHOUT SEPTIC SHOCK 09/17/2018 ILIA PERRY MD Ot Z66 DO NOT RESUSCITATE 09/17/2018 ILIA PERRY MD Ot Z85.028 PERSONAL HISTORY OF OTHER MALIGNANT NEOP 09/17/2018 ILIA PERRY MD Ot Z85.46 PERSONAL HISTORY OF MALIGNANT NEOPLASM O 09/17/2018 ILIA PERRY MD Ot Z86.73 PRSNL HX OF TIA (TIA), AND CEREB INFRC W 09/17/2018 ILIA PERRY MD Ot A41.9 SEPSIS, UNSPECIFIED ORGANISM 09/17/2018 ILIA PERRY MD Ot E78.5 HYPERLIPIDEMIA, UNSPECIFIED 09/17/2018 ILIA PERRY MD Ot F17.210 NICOTINE DEPENDENCE, CIGARETTES, UNCOMPL 09/17/2018 ILIA PERRY MD Ot I21.A1 MYOCARDIAL INFARCTION TYPE 2 09/17/2018 ILIA PERRY MD Ot J18.1 LOBAR PNEUMONIA, UNSPECIFIED ORGANISM 09/17/2018 ILIA PERRY MD Ot J44.1 CHRONIC OBSTRUCTIVE PULMONARY DISEASE W 09/17/2018 ILIA PERRY MD Ot J96.21 ACUTE AND CHRONIC RESPIRATORY FAILURE [place] 09/17/2018 ILIA PERRY MD Ot R65.20 SEVERE SEPSIS WITHOUT SEPTIC SHOCK 09/17/2018 ILIA PERRY MD Ot Z66 DO NOT RESUSCITATE 09/17/2018 ILIA PERRY MD Ot Z85.028 PERSONAL HISTORY OF OTHER MALIGNANT NEOP 09/17/2018 ILIA PERRY MD Ot Z85.46 PERSONAL HISTORY OF MALIGNANT NEOPLASM O 09/17/2018 ILIA PERRY MD Ot Z86.73 PRSNL HX OF TIA (TIA), AND CEREB INFRC W 09/18/2018 ILIA PERRY MD Ot A41.9 SEPSIS, UNSPECIFIED ORGANISM 09/18/2018 ILIA PERRY MD Ot E78.5 HYPERLIPIDEMIA, UNSPECIFIED 09/18/2018 ILIA PERRY MD Ot F17.210 NICOTINE DEPENDENCE, CIGARETTES, UNCOMPL 09/18/2018 ILIA PERRY MD Ot I21.A1 MYOCARDIAL INFARCTION TYPE 2 09/18/2018 ILIA PERRY MD Ot J18.1 LOBAR PNEUMONIA, UNSPECIFIED ORGANISM 09/18/2018 ILIA PERRY MD Ot J44.1 CHRONIC OBSTRUCTIVE PULMONARY DISEASE W 09/18/2018 ILIA PERRY MD Ot J96.21 ACUTE AND CHRONIC RESPIRATORY FAILURE [place] 09/18/2018 ILIA PERRY MD Ot R65.20 SEVERE SEPSIS WITHOUT SEPTIC SHOCK 09/18/2018 ILIA PERRY MD Ot Z66 DO NOT RESUSCITATE 09/18/2018 ILIA PERRY MD Ot Z85.028 PERSONAL HISTORY OF OTHER MALIGNANT NEOP 09/18/2018 ILIA PERRY MD Ot Z85.46 PERSONAL HISTORY OF MALIGNANT NEOPLASM O 09/18/2018 ILIA PERRY MD Ot Z86.73 PRSNL HX OF TIA (TIA), AND CEREB INFRC W 09/18/2018 ILIA PERRY MD Ot A41.9 SEPSIS, UNSPECIFIED ORGANISM 09/18/2018 ILIA PERRY MD Ot E78.5 HYPERLIPIDEMIA, UNSPECIFIED 09/18/2018 ILIA PERRY MD Ot F17.210 NICOTINE DEPENDENCE, CIGARETTES, UNCOMPL 09/18/2018 ILIA PERRY MD Ot I21.A1 MYOCARDIAL INFARCTION TYPE 2 09/18/2018 ILIA PERRY MD Ot J18.1 LOBAR PNEUMONIA, UNSPECIFIED ORGANISM 09/18/2018 ILIA PERRY MD Ot J44.1 CHRONIC OBSTRUCTIVE PULMONARY DISEASE W 09/18/2018 ILIA PERRY MD Ot J96.21 ACUTE AND CHRONIC RESPIRATORY FAILURE [place] 09/18/2018 ILIA PERRY MD Ot R65.20 SEVERE SEPSIS WITHOUT SEPTIC SHOCK 09/18/2018 ILIA PERRY MD Ot Z66 DO NOT RESUSCITATE 09/18/2018 ILIA PERRY MD Ot Z85.028 PERSONAL HISTORY OF OTHER MALIGNANT NEOP 09/18/2018 ILIA PERRY MD Ot Z85.46 PERSONAL HISTORY OF MALIGNANT NEOPLASM O 09/18/2018 ILIA PERRY MD Ot Z86.73 PRSNL HX OF TIA (TIA), AND CEREB INFRC W 09/24/2018 ILIA PERRY MD Ot A41.9 SEPSIS, UNSPECIFIED ORGANISM 09/24/2018 ILIA PERRY MD Ot B37.81 CANDIDAL ESOPHAGITIS 09/24/2018 ILIA PERRY MD Ot D62 ACUTE POSTHEMORRHAGIC ANEMIA 09/24/2018 ILIA PERRY MD Ot E78.5 HYPERLIPIDEMIA, UNSPECIFIED 09/24/2018 ILIA PERRY MD Ot E86.0 DEHYDRATION 09/24/2018 ILIA PERRY MD Ot E87.2 ACIDOSIS 09/24/2018 ILIA PERRY MD Ot F17.210 NICOTINE DEPENDENCE, CIGARETTES, UNCOMPL 09/24/2018 ILIA PERRY MD Ot H91.13 PRESBYCUSIS, BILATERAL 09/24/2018 ILIA PERRY MD Ot I21.A1 MYOCARDIAL INFARCTION TYPE 2 09/24/2018 ILIA PERRY MD Ot I26.99 OTHER PULMONARY EMBOLISM WITHOUT ACUTE C 09/24/2018 ILIA PERRY MD Ot I50.31 ACUTE DIASTOLIC (CONGESTIVE) HEART FAILU 09/24/2018 ILIA PERRY MD, Ot J18.1 LOBAR PNEUMONIA, UNSPECIFIED ORGANISM 09/24/2018 ILIA PERRY MD, Ot J43.9 EMPHYSEMA, UNSPECIFIED 09/24/2018 ILIA PERRY MD, Ot J44.1 CHRONIC OBSTRUCTIVE PULMONARY DISEASE W 09/24/2018 ILIA PERRY MD Ot J96.21 ACUTE AND CHRONIC RESPIRATORY FAILURE [place] 09/24/2018 ILIA PERRY MD Ot K21.0 GASTRO-ESOPHAGEAL REFLUX DISEASE WITH ES 09/24/2018 ILIA PERRY MD Ot K29.70 GASTRITIS, UNSPECIFIED, WITHOUT BLEEDING 09/24/2018 ILIA PERRY MD Ot K44.9 DIAPHRAGMATIC HERNIA WITHOUT OBSTRUCTION 09/24/2018 ILIA PERRY MD Ot R23.3 SPONTANEOUS ECCHYMOSES 09/24/2018 ILIA PERRY MD Ot R65.20 SEVERE SEPSIS WITHOUT SEPTIC SHOCK 09/24/2018 ILIA PERRY MD Ot Z66 DO NOT RESUSCITATE 09/24/2018 ILIA PERRY MD Ot Z85.028 PERSONAL HISTORY OF OTHER MALIGNANT NEOP 09/24/2018 ILIA PERRY MD Ot Z85.46 PERSONAL HISTORY OF MALIGNANT NEOPLASM O 09/24/2018 ILIA PERRY MD Ot Z86.73 PRSNL HX OF TIA (TIA), AND CEREB INFRC W 10/31/2018 CALLIE ARMENDARIZ FAC, ALI FACP CCDS Ot R06.02 SHORTNESS OF BREATH 10/31/2018 CALLIE ARMENDARIZ FAC, ALI FACP CCDS Ot Z72.0 TOBACCO USE 10/31/2018 CALLIE ARMENDARIZ FAC, ALI FACP CCDS Ot Z86.79 PERSONAL HISTORY OF OTHER DISEASES OF TH Procedures Code Description [place] [address] ROUTINE VENIPUNCTURE 04/05/2012 10592 XRAY CHEST 2 VIEW 04/05/2012 38096 CMP 04/05/2012 59221 LIPID PANEL 04/05/2012 59976 PSA FREE AND TOTAL 04/05/2012 01125 TSH 04/05/2012 79784 CBC 04/05/2012 90806 EKG, TRACING (IN-HOUSE) 04/05/2012 78885 SPIROMETRY 05/17/2012 69432 BRONCHODILATION PRE/POST 05/17/2012 90408 RESPIRATORY FLOW VOLUME LOOP 05/17/2012 12144 ROUTINE VENIPUNCTURE 06/18/2012 [id number] GFR CALC (RESULT ONLY) 06/18/2012 02676 BMP 06/18/2012 [id number] EXCISION OF ESOPHAGOGASTRIC JUNCTION, EN 09/18/2018 [id number] EXCISION OF STOMACH, PYLORUS, ENDO, DIAG 09/18/2018 [id number] EXTRACTION OF ESOPHAGUS, ENDO, DIAGN 09/18/2018 Results Test Result Range Complete blood count (CBC) with automated white blood cell (WBC) differential - 09/09/18 19:52 Blood leukocytes automated count (number/volume) 16.3 10*3/uL 4.3-11.0 Blood erythrocytes automated count (number/volume) 4.69 10*6/uL 4.35-5.85 Venous blood hemoglobin measurement (mass/volume) 13.8 g/dL 13.3-17.7 Blood hematocrit (volume fraction) 42 % 40-54 Automated erythrocyte mean corpuscular volume 89 [foz_us] 80-99 Automated erythrocyte mean corpuscular hemoglobin (mass per erythrocyte) 29 pg 25-34 Automated erythrocyte mean corpuscular hemoglobin concentration measurement (mass/volume) 33 g/dL 32-36 Automated erythrocyte distribution width ratio 15.5 % 10.0- 14.5 Automated blood platelet count (count/volume) 277 10*3/uL 130-400 Automated blood platelet mean volume measurement 10.1 [foz_us] 7.4-10.4 Automated blood neutrophils/100 leukocytes 77 % 42-75 Automated blood lymphocytes/100 leukocytes 14 % 12-44 Blood monocytes/100 leukocytes 9 % 0-12 Automated blood eosinophils/100 leukocytes 0 % 0-10 Automated blood basophils/100 leukocytes 0 % 0-10 Blood neutrophils automated count (number/volume) 12.6 10*3 1.8-7.8 Blood lymphocytes automated count (number/volume) 2.3 10*3 1.0-4.0 Blood monocytes automated count (number/volume) 1.4 10*3 0.0- 1.0 Automated eosinophil count 0.0 10*3/uL 0.0-0.3 Automated blood basophil count (count/volume) 0.0 10*3/uL 0.0-0.1 PT panel in platelet poor plasma by coagulation assay - 09/09/18 19:52 Prothrombin time (PT) in platelet poor plasma by coagulation assay 14.5 s 12.2-14.7 INR in platelet poor plasma or blood by coagulation assay 1.1 0.8-1.4 Activated partial thromboplastin time (aPTT) in platelet poor plasma bycoagulation assay - 09/09/18 19:52 Activated partial thromboplastin time (aPTT) in platelet poor plasma bycoagulation assay 33 s 24-35 Blood lactic acid measurement (moles/volume) - 09/09/18 19:52 Blood lactic acid measurement (moles/volume) 1.89 mmol/L 0.50- 2.00 Comprehensive metabolic panel - 09/09/18 19:52 Serum or plasma sodium measurement (moles/volume) 142 mmol/L 135-145 Serum or plasma potassium measurement (moles/volume) 4.0 mmol/L 3.6-5.0 Serum or plasma chloride measurement (moles/volume) 108 mmol/L 98-107 Carbon dioxide 18 mmol/L 21-32 Serum or plasma anion gap determination (moles/volume) 16 mmol/L 5-14 Serum or plasma urea nitrogen measurement (mass/volume) 16 mg/dL 7-18 Serum or plasma creatinine measurement (mass/volume) 1.17 mg/dL 0.60-1.30 Serum or plasma urea nitrogen/creatinine mass ratio 14 NRG Serum or plasma creatinine measurement with calculation of estimated glomerular filtration rate > NRG Serum or plasma glucose measurement (mass/volume) 133 mg/dL 70-105 Serum or plasma calcium measurement (mass/volume) 9.7 mg/dL 8.5-10.1 Serum or plasma total bilirubin measurement (mass/volume) 0.5 mg/dL 0.1-1.0 Serum or plasma alkaline phosphatase measurement (enzymatic activity/volume) 59 U/L 40-136 Serum or plasma aspartate aminotransferase measurement (enzymatic activity/volume) 26 U/L 5-34 Serum or plasma alanine aminotransferase measurement (enzymatic activity/volume) 20 U/L 0-55 Serum or plasma protein measurement (mass/volume) 7.6 g/dL 6.4-8.2 Serum or plasma albumin measurement (mass/volume) 3.7 g/dL 3.2-4.5 CALCIUM CORRECTED 9.9 mg/dL 8.5-10.1 Serum or plasma lithium measurement (moles/volume) - 09/09/18 19:52 BNP level 75.7 pg/mL <100.0 Serum or plasma troponin i.cardiac measurement (mass/volume) - 09/09/18 19:52 Serum or plasma troponin i.cardiac measurement (mass/volume) 0.040 ng/mL <0.028 Blood manual differential performed detection - 09/09/18 19:52 Blood monocytes/100 leukocytes 8 % [facility] Manual blood segmented neutrophils/100 leukocytes 75 % NR Manual blood lymphocytes/100 leukocytes 17 % [facility] Blood erythrocyte morphology finding identification NORMAL NR Serum or plasma C reactive protein measurement (mass/volume) - 09/09/18 19:52 Serum or plasma C reactive protein measurement (mass/volume) 19.59 mg/dL 0.00-0.50 Bacterial blood culture - 09/09/18 19:52 QUANTITY OF GROWTH . [facility] Bacterial blood culture SEE COMMEN [facility] Influenza virus A and B antigen detection - 09/09/18 20:02 FLU RESULT NEGATIVE FOR INFLUENZA A AND B ANTIGENS BY IA [facility] Bacterial blood culture - 09/09/18 20:05 Bacterial blood culture NG [facility] Methicillin resistant Staphylococcus aureus (MRSA) screening culture - 09/09/18 23:43 Methicillin resistant Staphylococcus aureus (MRSA) screening culture NEG NRG Complete blood count (CBC) with automated white blood cell (WBC) differential - 09/10/18 02:00 Blood leukocytes automated count (number/volume) 9.3 10*3/uL 4.3-11.0 Blood erythrocytes automated count (number/volume) 4.28 10*6/uL 4.35-5.85 Venous blood hemoglobin measurement (mass/volume) 12.8 g/dL 13.3-17.7 Blood hematocrit (volume fraction) 38 % 40-54 Automated erythrocyte mean corpuscular volume 89 [foz_us] 80-99 Automated erythrocyte mean corpuscular hemoglobin (mass per erythrocyte) 30 pg 25-34 Automated erythrocyte mean corpuscular hemoglobin concentration measurement (mass/volume) 34 g/dL 32-36 Automated erythrocyte distribution width ratio 15.3 % 10.0- 14.5 Automated blood platelet count (count/volume) 269 10*3/uL 130-400 Automated blood platelet mean volume measurement 9.3 [foz_us] 7.4-10.4 Automated blood neutrophils/100 leukocytes 90 % 42-75 Automated blood lymphocytes/100 leukocytes 9 % 12-44 Blood monocytes/100 leukocytes 1 % 0-12 Automated blood eosinophils/100 leukocytes 0 % 0-10 Automated blood basophils/100 leukocytes 0 % 0-10 Blood neutrophils automated count (number/volume) 8.3 10*3 1.8-7.8 Blood lymphocytes automated count (number/volume) 0.9 10*3 1.0-4.0 Blood monocytes automated count (number/volume) 0.1 10*3 0.0- 1.0 Automated eosinophil count 0.0 10*3/uL 0.0-0.3 Automated blood basophil count (count/volume) 0.0 10*3/uL 0.0-0.1 Comprehensive metabolic panel - 09/10/18 02:00 Serum or plasma sodium measurement (moles/volume) 142 mmol/L 135-145 Serum or plasma potassium measurement (moles/volume) 4.3 mmol/L 3.6-5.0 Serum or plasma chloride measurement (moles/volume) 110 mmol/L 98-107 Carbon dioxide 18 mmol/L 21-32 Serum or plasma anion gap determination (moles/volume) 14 mmol/L 5-14 Serum or plasma urea nitrogen measurement (mass/volume) 17 mg/dL 7-18 Serum or plasma creatinine measurement (mass/volume) 1.05 mg/dL 0.60-1.30 Serum or plasma urea nitrogen/creatinine mass ratio 16 NRG Serum or plasma creatinine measurement with calculation of estimated glomerular filtration rate > NRG Serum or plasma glucose measurement (mass/volume) 132 mg/dL 70-105 Serum or plasma calcium measurement (mass/volume) 9.1 mg/dL 8.5-10.1 Serum or plasma total bilirubin measurement (mass/volume) 0.4 mg/dL 0.1-1.0 Serum or plasma alkaline phosphatase measurement (enzymatic activity/volume) 51 U/L 40-136 Serum or plasma aspartate aminotransferase measurement (enzymatic activity/volume) 21 U/L 5-34 Serum or plasma alanine aminotransferase measurement (enzymatic activity/volume) 17 U/L 0-55 Serum or plasma protein measurement (mass/volume) 6.8 g/dL 6.4-8.2 Serum or plasma albumin measurement (mass/volume) 3.4 g/dL 3.2-4.5 CALCIUM CORRECTED 9.6 mg/dL 8.5-10.1 Serum or plasma phosphate measurement (mass/volume) - 09/10/18 02:00 Serum or plasma phosphate measurement (mass/volume) 2.1 mg/dL 2.3-4.7 Magnesium - 09/10/18 02:00 Magnesium 1.9 mg/dL 1.8-2.4 Serum or plasma troponin i.cardiac measurement (mass/volume) - 09/10/18 02:00 Serum or plasma troponin i.cardiac measurement (mass/volume) 0.150 ng/mL <0.028 Arterial blood gas measurement - 09/10/18 06:25 Blood pCO2 33 mm[Hg] 35-45 Blood pO2 63 mm[Hg] 79-93 Arterial blood bicarbonate measurement (moles/volume) 18 mmol/L 23-27 Arterial blood base excess by calculation -6.6 mmol/L -2.5-2.5 Arterial blood oxygen saturation measurement 94 % 94-100 * Inhaled oxygen flow rate 4L HIGH FLOW NRG Arterial blood pH measurement with patient temperature correction 7.35 7.37-7.43 Arterial blood carbon dioxide, total measurement (moles/volume) 19.3 mmol/L 21.0-31.0 Body site R RAD NRG Assessment of wrist artery patency prior to arterial puncture YES-POS NRG Setting of ventilation mode NO NRG Measurement of body temperature 96.3 NRG Serum or plasma troponin i.cardiac measurement (mass/volume) - 09/10/18 06:31 Serum or plasma troponin i.cardiac measurement (mass/volume) 0.125 ng/mL <0.028 Complete urinalysis with reflex to culture - 09/10/18 13:40 Urine color determination YELLOW NRG Urine clarity determination SLIGHTLY CLOUDY NRG Urine pH measurement by test strip 5 5-9 Specific gravity of urine by test strip 1.025 1.016-1.022 Urine protein assay by test strip, semi-quantitative 2+ NEGATIVE Urine glucose detection by automated test strip NEGATIVE NEGATIVE Erythrocytes detection in urine sediment by light microscopy 5+ NEGATIVE Urine ketones detection by automated test strip 3+ NEGATIVE Urine nitrite detection by test strip NEGATIVE NEGATIVE Urine total bilirubin detection by test strip NEGATIVE NEGATIVE Urine urobilinogen measurement by automated test strip (mass/volume) NORMAL NORMAL Urine leukocyte esterase detection by dipstick NEGATIVE NEGATIVE Automated urine sediment erythrocyte count by microscopy (number/high power field) [HPF] NRG Automated urine sediment leukocyte count by microscopy (number/high power field) [HPF] NRG Bacteria detection in urine sediment by light microscopy FEW NRG Squamous epithelial cells detection in urine sediment by light microscopy 0-2 NRG Crystals detection in urine sediment by light microscopy NONE NRG Casts detection in urine sediment by light microscopy PRESENT NRG Mucus detection in urine sediment by light microscopy NEGATIVE NRG Complete urinalysis with reflex to culture NO NRG Yeast detection in urine sediment by light microscopy FEW NRG Hyaline casts detection in urine sediment by light microscopy 2-5 NRG Renal epithelial cells detection in urine sediment by light microscopy NONE NRG Complete blood count (CBC) with automated white blood cell (WBC) differential - 09/11/18 03:35 Blood leukocytes automated count (number/volume) 17.4 10*3/uL 4.3-11.0 Blood erythrocytes automated count (number/volume) 4.05 10*6/uL 4.35-5.85 Venous blood hemoglobin measurement (mass/volume) 12.0 g/dL 13.3-17.7 Blood hematocrit (volume fraction) 37 % 40-54 Automated erythrocyte mean corpuscular volume 90 [foz_us] 80-99 Automated erythrocyte mean corpuscular hemoglobin (mass per erythrocyte) 30 pg 25-34 Automated erythrocyte mean corpuscular hemoglobin concentration measurement (mass/volume) 33 g/dL 32-36 Automated erythrocyte distribution width ratio 15.4 % 10.0- 14.5 Automated blood platelet count (count/volume) 307 10*3/uL 130-400 Automated blood platelet mean volume measurement 9.6 [foz_us] 7.4-10.4 Automated blood neutrophils/100 leukocytes 86 % 42-75 Automated blood lymphocytes/100 leukocytes 8 % 12-44 Blood monocytes/100 leukocytes 6 % 0-12 Automated blood eosinophils/100 leukocytes 0 % 0-10 Automated blood basophils/100 leukocytes 0 % 0-10 Blood neutrophils automated count (number/volume) 15.0 10*3 1.8-7.8 Blood lymphocytes automated count (number/volume) 1.4 10*3 1.0-4.0 Blood monocytes automated count (number/volume) 1.0 10*3 0.0- 1.0 Automated eosinophil count 0.0 10*3/uL 0.0-0.3 Automated blood basophil count (count/volume) 0.0 10*3/uL 0.0-0.1 Comprehensive metabolic panel - 09/11/18 03:35 Serum or plasma sodium measurement (moles/volume) 143 mmol/L 135-145 Serum or plasma potassium measurement (moles/volume) 3.6 mmol/L 3.6-5.0 Serum or plasma chloride measurement (moles/volume) 115 mmol/L 98-107 Carbon dioxide 14 mmol/L 21-32 Serum or plasma anion gap determination (moles/volume) 14 mmol/L 5-14 Serum or plasma urea nitrogen measurement (mass/volume) 20 mg/dL 7-18 Serum or plasma creatinine measurement (mass/volume) 1.00 mg/dL 0.60-1.30 Serum or plasma urea nitrogen/creatinine mass ratio 20 NRG Serum or plasma creatinine measurement with calculation of estimated glomerular filtration rate > NRG Serum or plasma glucose measurement (mass/volume) 138 mg/dL 70-105 Serum or plasma calcium measurement (mass/volume) 8.4 mg/dL 8.5-10.1 Serum or plasma total bilirubin measurement (mass/volume) 0.3 mg/dL 0.1-1.0 Serum or plasma alkaline phosphatase measurement (enzymatic activity/volume) 48 U/L 40-136 Serum or plasma aspartate aminotransferase measurement (enzymatic activity/volume) 31 U/L 5-34 Serum or plasma alanine aminotransferase measurement (enzymatic activity/volume) 18 U/L 0-55 Serum or plasma protein measurement (mass/volume) 6.1 g/dL 6.4-8.2 Serum or plasma albumin measurement (mass/volume) 3.1 g/dL 3.2-4.5 CALCIUM CORRECTED 9.1 mg/dL 8.5-10.1 Serum or plasma phosphate measurement (mass/volume) - 09/11/18 03:35 Serum or plasma phosphate measurement (mass/volume) 3.4 mg/dL 2.3-4.7 Magnesium - 09/11/18 03:35 Magnesium 1.8 mg/dL 1.8-2.4 Complete blood count (CBC) with automated white blood cell (WBC) differential - 09/12/18 03:45 Blood leukocytes automated count (number/volume) 16.9 10*3/uL 4.3-11.0 Blood erythrocytes automated count (number/volume) 4.20 10*6/uL 4.35-5.85 Venous blood hemoglobin measurement (mass/volume) 12.3 g/dL 13.3-17.7 Blood hematocrit (volume fraction) 37 % 40-54 Automated erythrocyte mean corpuscular volume 88 [foz_us] 80-99 Automated erythrocyte mean corpuscular hemoglobin (mass per erythrocyte) 29 pg 25-34 Automated erythrocyte mean corpuscular hemoglobin concentration measurement (mass/volume) 33 g/dL 32-36 Automated erythrocyte distribution width ratio 15.3 % 10.0- 14.5 Automated blood platelet count (count/volume) 402 10*3/uL 130-400 Automated blood platelet mean volume measurement 9.3 [foz_us] 7.4-10.4 Automated blood neutrophils/100 leukocytes 91 % 42-75 Automated blood lymphocytes/100 leukocytes 5 % 12-44 Blood monocytes/100 leukocytes 4 % 0-12 Automated blood eosinophils/100 leukocytes 0 % 0-10 Automated blood basophils/100 leukocytes 0 % 0-10 Blood neutrophils automated count (number/volume) 15.4 10*3 1.8-7.8 Blood lymphocytes automated count (number/volume) 0.9 10*3 1.0-4.0 Blood monocytes automated count (number/volume) 0.6 10*3 0.0- 1.0 Automated eosinophil count 0.0 10*3/uL 0.0-0.3 Automated blood basophil count (count/volume) 0.0 10*3/uL 0.0-0.1 Comprehensive metabolic panel - 09/12/18 03:45 Serum or plasma sodium measurement (moles/volume) 143 mmol/L 135-145 Serum or plasma potassium measurement (moles/volume) 3.4 mmol/L 3.6-5.0 Serum or plasma chloride measurement (moles/volume) 113 mmol/L 98-107 Carbon dioxide 17 mmol/L 21-32 Serum or plasma anion gap determination (moles/volume) 13 mmol/L 5-14 Serum or plasma urea nitrogen measurement (mass/volume) 25 mg/dL 7-18 Serum or plasma creatinine measurement (mass/volume) 1.05 mg/dL 0.60-1.30 Serum or plasma urea nitrogen/creatinine mass ratio 24 NRG Serum or plasma creatinine measurement with calculation of estimated glomerular filtration rate > NRG Serum or plasma glucose measurement (mass/volume) 149 mg/dL 70-105 Serum or plasma calcium measurement (mass/volume) 8.8 mg/dL 8.5-10.1 Serum or plasma total bilirubin measurement (mass/volume) 0.4 mg/dL 0.1-1.0 Serum or plasma alkaline phosphatase measurement (enzymatic activity/volume) 55 U/L 40-136 Serum or plasma aspartate aminotransferase measurement (enzymatic activity/volume) 36 U/L 5-34 Serum or plasma alanine aminotransferase measurement (enzymatic activity/volume) 29 U/L 0-55 Serum or plasma protein measurement (mass/volume) 6.0 g/dL 6.4-8.2 Serum or plasma albumin measurement (mass/volume) 3.1 g/dL 3.2-4.5 CALCIUM CORRECTED 9.5 mg/dL 8.5-10.1 Complete blood count (CBC) with automated white blood cell (WBC) differential - 09/13/18 04:10 Blood leukocytes automated count (number/volume) 20.7 10*3/uL 4.3-11.0 Blood erythrocytes automated count (number/volume) 4.32 10*6/uL 4.35-5.85 Venous blood hemoglobin measurement (mass/volume) 12.9 g/dL 13.3-17.7 Blood hematocrit (volume fraction) 38 % 40-54 Automated erythrocyte mean corpuscular volume 87 [foz_us] 80-99 Automated erythrocyte mean corpuscular hemoglobin (mass per erythrocyte) 30 pg 25-34 Automated erythrocyte mean corpuscular hemoglobin concentration measurement (mass/volume) 34 g/dL 32-36 Automated erythrocyte distribution width ratio 15.1 % 10.0- 14.5 Automated blood platelet count (count/volume) 438 10*3/uL 130-400 Automated blood platelet mean volume measurement 9.6 [foz_us] 7.4-10.4 Automated blood neutrophils/100 leukocytes 87 % 42-75 Automated blood lymphocytes/100 leukocytes 7 % 12-44 Blood monocytes/100 leukocytes 6 % 0-12 Automated blood eosinophils/100 leukocytes 0 % 0-10 Automated blood basophils/100 leukocytes 0 % 0-10 Blood neutrophils automated count (number/volume) 18.1 10*3 1.8-7.8 Blood lymphocytes automated count (number/volume) 1.4 10*3 1.0-4.0 Blood monocytes automated count (number/volume) 1.2 10*3 0.0- 1.0 Automated eosinophil count 0.0 10*3/uL 0.0-0.3 Automated blood basophil count (count/volume) 0.0 10*3/uL 0.0-0.1 Comprehensive metabolic panel - 09/13/18 04:10 Serum or plasma sodium measurement (moles/volume) 141 mmol/L 135-145 Serum or plasma potassium measurement (moles/volume) 3.9 mmol/L 3.6-5.0 Serum or plasma chloride measurement (moles/volume) 111 mmol/L 98-107 Carbon dioxide 19 mmol/L 21-32 Serum or plasma anion gap determination (moles/volume) 11 mmol/L 5-14 Serum or plasma urea nitrogen measurement (mass/volume) 30 mg/dL 7-18 Serum or plasma creatinine measurement (mass/volume) 1.03 mg/dL 0.60-1.30 Serum or plasma urea nitrogen/creatinine mass ratio 29 NRG Serum or plasma creatinine measurement with calculation of estimated glomerular filtration rate > NRG Serum or plasma glucose measurement (mass/volume) 145 mg/dL 70-105 Serum or plasma calcium measurement (mass/volume) 9.0 mg/dL 8.5-10.1 Serum or plasma total bilirubin measurement (mass/volume) 0.4 mg/dL 0.1-1.0 Serum or plasma alkaline phosphatase measurement (enzymatic activity/volume) 58 U/L 40-136 Serum or plasma aspartate aminotransferase measurement (enzymatic activity/volume) 44 U/L 5-34 Serum or plasma alanine aminotransferase measurement (enzymatic activity/volume) 53 U/L 0-55 Serum or plasma protein measurement (mass/volume) 5.9 g/dL 6.4-8.2 Serum or plasma albumin measurement (mass/volume) 3.0 g/dL 3.2-4.5 CALCIUM CORRECTED 9.8 mg/dL 8.5-10.1 Blood manual differential performed detection - 09/13/18 04:10 Blood monocytes/100 leukocytes 5 % NRG Manual blood segmented neutrophils/100 leukocytes 85 % NRG Manual blood lymphocytes/100 leukocytes 10 % NRG Blood erythrocyte morphology finding identification NORMAL NRG Serum or plasma lithium measurement (moles/volume) - 09/13/18 04:10 BNP level 189.6 pg/mL <100.0 Complete blood count (CBC) with automated white blood cell (WBC) differential - 09/14/18 05:57 Blood leukocytes automated count (number/volume) 20.3 10*3/uL 4.3-11.0 Blood erythrocytes automated count (number/volume) 4.04 10*6/uL 4.35-5.85 Venous blood hemoglobin measurement (mass/volume) 11.8 g/dL 13.3-17.7 Blood hematocrit (volume fraction) 36 % 40-54 Automated erythrocyte mean corpuscular volume 88 [foz_us] 80-99 Automated erythrocyte mean corpuscular hemoglobin (mass per erythrocyte) 29 pg 25-34 Automated erythrocyte mean corpuscular hemoglobin concentration measurement (mass/volume) 33 g/dL 32-36 Automated erythrocyte distribution width ratio 15.0 % 10.0- 14.5 Automated blood platelet count (count/volume) 371 10*3/uL 130-400 Automated blood platelet mean volume measurement 9.3 [foz_us] 7.4-10.4 Automated blood neutrophils/100 leukocytes 83 % 42-75 Automated blood lymphocytes/100 leukocytes 10 % 12-44 Blood monocytes/100 leukocytes 7 % 0-12 Automated blood eosinophils/100 leukocytes 0 % 0-10 Automated blood basophils/100 leukocytes 0 % 0-10 Blood neutrophils automated count (number/volume) 16.8 10*3 1.8-7.8 Blood lymphocytes automated count (number/volume) 2.0 10*3 1.0-4.0 Blood monocytes automated count (number/volume) 1.5 10*3 0.0- 1.0 Automated eosinophil count 0.0 10*3/uL 0.0-0.3 Automated blood basophil count (count/volume) 0.0 10*3/uL 0.0-0.1 Comprehensive metabolic panel - 09/14/18 05:57 Serum or plasma sodium measurement (moles/volume) 139 mmol/L 135-145 Serum or plasma potassium measurement (moles/volume) 4.4 mmol/L 3.6-5.0 Serum or plasma chloride measurement (moles/volume) 110 mmol/L 98-107 Carbon dioxide 22 mmol/L 21-32 Serum or plasma anion gap determination (moles/volume) 7 mmol/L 5-14 Serum or plasma urea nitrogen measurement (mass/volume) 29 mg/dL 7-18 Serum or plasma creatinine measurement (mass/volume) 0.87 mg/dL 0.60-1.30 Serum or plasma urea nitrogen/creatinine mass ratio 33 NRG Serum or plasma creatinine measurement with calculation of estimated glomerular filtration rate > NRG Serum or plasma glucose measurement (mass/volume) 131 mg/dL 70-105 Serum or plasma calcium measurement (mass/volume) 8.9 mg/dL 8.5-10.1 Serum or plasma total bilirubin measurement (mass/volume) 0.4 mg/dL 0.1-1.0 Serum or plasma alkaline phosphatase measurement (enzymatic activity/volume) 45 U/L 40-136 Serum or plasma aspartate aminotransferase measurement (enzymatic activity/volume) 44 U/L 5-34 Serum or plasma alanine aminotransferase measurement (enzymatic activity/volume) 78 U/L 0-55 Serum or plasma protein measurement (mass/volume) 5.2 g/dL 6.4-8.2 Serum or plasma albumin measurement (mass/volume) 2.8 g/dL 3.2-4.5 CALCIUM CORRECTED 9.9 mg/dL 8.5-10.1 Comprehensive metabolic panel - 09/15/18 05:12 Serum or plasma sodium measurement (moles/volume) 137 mmol/L 135-145 Serum or plasma potassium measurement (moles/volume) 4.1 mmol/L 3.6-5.0 Serum or plasma chloride measurement (moles/volume) 108 mmol/L 98-107 Carbon dioxide 22 mmol/L 21-32 Serum or plasma anion gap determination (moles/volume) 7 mmol/L 5-14 Serum or plasma urea nitrogen measurement (mass/volume) 31 mg/dL 7-18 Serum or plasma creatinine measurement (mass/volume) 0.92 mg/dL 0.60-1.30 Serum or plasma urea nitrogen/creatinine mass ratio 34 NRG Serum or plasma creatinine measurement with calculation of estimated glomerular filtration rate > NRG Serum or plasma glucose measurement (mass/volume) 144 mg/dL 70-105 Serum or plasma calcium measurement (mass/volume) 8.4 mg/dL 8.5-10.1 Serum or plasma total bilirubin measurement (mass/volume) 0.4 mg/dL 0.1-1.0 Serum or plasma alkaline phosphatase measurement (enzymatic activity/volume) 40 U/L 40-136 Serum or plasma aspartate aminotransferase measurement (enzymatic activity/volume) 47 U/L 5-34 Serum or plasma alanine aminotransferase measurement (enzymatic activity/volume) 99 U/L 0-55 Serum or plasma protein measurement (mass/volume) 5.0 g/dL 6.4-8.2 Serum or plasma albumin measurement (mass/volume) 2.7 g/dL 3.2-4.5 CALCIUM CORRECTED 9.4 mg/dL 8.5-10.1 Complete blood count (CBC) with automated white blood cell (WBC) differential - 09/15/18 05:17 Blood leukocytes automated count (number/volume) 22.2 10*3/uL 4.3-11.0 Blood erythrocytes automated count (number/volume) 4.02 10*6/uL 4.35-5.85 Venous blood hemoglobin measurement (mass/volume) 11.9 g/dL 13.3-17.7 Blood hematocrit (volume fraction) 35 % 40-54 Automated erythrocyte mean corpuscular volume 88 [foz_us] 80-99 Automated erythrocyte mean corpuscular hemoglobin (mass per erythrocyte) 30 pg 25-34 Automated erythrocyte mean corpuscular hemoglobin concentration measurement (mass/volume) 34 g/dL 32-36 Automated erythrocyte distribution width ratio 14.9 % 10.0- 14.5 Automated blood platelet count (count/volume) 399 10*3/uL 130-400 Automated blood platelet mean volume measurement 9.0 [foz_us] 7.4-10.4 Automated blood neutrophils/100 leukocytes 86 % 42-75 Automated blood lymphocytes/100 leukocytes 7 % 12-44 Blood monocytes/100 leukocytes 7 % 0-12 Automated blood eosinophils/100 leukocytes 0 % 0-10 Automated blood basophils/100 leukocytes 0 % 0-10 Blood neutrophils automated count (number/volume) 19.1 10*3 1.8-7.8 Blood lymphocytes automated count (number/volume) 1.5 10*3 1.0-4.0 Blood monocytes automated count (number/volume) 1.6 10*3 0.0- 1.0 Automated eosinophil count 0.0 10*3/uL 0.0-0.3 Automated blood basophil count (count/volume) 0.0 10*3/uL 0.0-0.1 Complete blood count (CBC) with automated white blood cell (WBC) differential - 09/16/18 05:00 Blood leukocytes automated count (number/volume) 25.1 10*3/uL 4.3-11.0 Blood erythrocytes automated count (number/volume) 3.79 10*6/uL 4.35-5.85 Venous blood hemoglobin measurement (mass/volume) 11.2 g/dL 13.3-17.7 Blood hematocrit (volume fraction) 34 % 40-54 Automated erythrocyte mean corpuscular volume 88 [foz_us] 80-99 Automated erythrocyte mean corpuscular hemoglobin (mass per erythrocyte) 30 pg 25-34 Automated erythrocyte mean corpuscular hemoglobin concentration measurement (mass/volume) 33 g/dL 32-36 Automated erythrocyte distribution width ratio 14.8 % 10.0- 14.5 Automated blood platelet count (count/volume) 353 10*3/uL 130-400 Automated blood platelet mean volume measurement 9.2 [foz_us] 7.4-10.4 Automated blood neutrophils/100 leukocytes 88 % 42-75 Automated blood lymphocytes/100 leukocytes 5 % 12-44 Blood monocytes/100 leukocytes 7 % 0-12 Automated blood eosinophils/100 leukocytes 0 % 0-10 Automated blood basophils/100 leukocytes 0 % 0-10 Blood neutrophils automated count (number/volume) 22.1 10*3 1.8-7.8 Blood lymphocytes automated count (number/volume) 1.3 10*3 1.0-4.0 Blood monocytes automated count (number/volume) 1.6 10*3 0.0- 1.0 Automated eosinophil count 0.0 10*3/uL 0.0-0.3 Automated blood basophil count (count/volume) 0.0 10*3/uL 0.0-0.1 Comprehensive metabolic panel - 09/16/18 05:00 Serum or plasma sodium measurement (moles/volume) 140 mmol/L 135-145 Serum or plasma potassium measurement (moles/volume) 4.3 mmol/L 3.6-5.0 Serum or plasma chloride measurement (moles/volume) 109 mmol/L 98-107 Carbon dioxide 23 mmol/L 21-32 Serum or plasma anion gap determination (moles/volume) 8 mmol/L 5-14 Serum or plasma urea nitrogen measurement (mass/volume) 29 mg/dL 7-18 Serum or plasma creatinine measurement (mass/volume) 0.94 mg/dL 0.60-1.30 Serum or plasma urea nitrogen/creatinine mass ratio 31 NRG Serum or plasma creatinine measurement with calculation of estimated glomerular filtration rate > NRG Serum or plasma glucose measurement (mass/volume) 146 mg/dL 70-105 Serum or plasma calcium measurement (mass/volume) 8.6 mg/dL 8.5-10.1 Serum or plasma total bilirubin measurement (mass/volume) 0.3 mg/dL 0.1-1.0 Serum or plasma alkaline phosphatase measurement (enzymatic activity/volume) 37 U/L 40-136 Serum or plasma aspartate aminotransferase measurement (enzymatic activity/volume) 57 U/L 5-34 Serum or plasma alanine aminotransferase measurement (enzymatic activity/volume) 132 U/L 0-55 Serum or plasma protein measurement (mass/volume) 4.7 g/dL 6.4-8.2 Serum or plasma albumin measurement (mass/volume) 2.6 g/dL 3.2-4.5 CALCIUM CORRECTED 9.7 mg/dL 8.5-10.1 Complete blood count (CBC) with automated white blood cell (WBC) differential - 09/17/18 04:55 Blood leukocytes automated count (number/volume) 31.0 10*3/uL 4.3-11.0 Blood erythrocytes automated count (number/volume) 3.29 10*6/uL 4.35-5.85 Venous blood hemoglobin measurement (mass/volume) 9.9 g/dL 13.3-17.7 Blood hematocrit (volume fraction) 29 % 40-54 Automated erythrocyte mean corpuscular volume 89 [foz_us] 80-99 Automated erythrocyte mean corpuscular hemoglobin (mass per erythrocyte) 30 pg 25-34 Automated erythrocyte mean corpuscular hemoglobin concentration measurement (mass/volume) 34 g/dL 32-36 Automated erythrocyte distribution width ratio 14.8 % 10.0- 14.5 Automated blood platelet count (count/volume) 375 10*3/uL 130-400 Automated blood platelet mean volume measurement 9.1 [foz_us] 7.4-10.4 Automated blood neutrophils/100 leukocytes 89 % 42-75 Automated blood lymphocytes/100 leukocytes 4 % 12-44 Blood monocytes/100 leukocytes 7 % 0-12 Automated blood eosinophils/100 leukocytes 0 % 0-10 Automated blood basophils/100 leukocytes 0 % 0-10 Blood neutrophils automated count (number/volume) 27.6 10*3 1.8-7.8 Blood lymphocytes automated count (number/volume) 1.2 10*3 1.0-4.0 Blood monocytes automated count (number/volume) 2.2 10*3 0.0- 1.0 Automated eosinophil count 0.0 10*3/uL 0.0-0.3 Automated blood basophil count (count/volume) 0.0 10*3/uL 0.0-0.1 Comprehensive metabolic panel - 09/17/18 04:55 Serum or plasma sodium measurement (moles/volume) 137 mmol/L 135-145 Serum or plasma potassium measurement (moles/volume) 4.2 mmol/L 3.6-5.0 Serum or plasma chloride measurement (moles/volume) 105 mmol/L 98-107 Carbon dioxide 23 mmol/L 21-32 Serum or plasma anion gap determination (moles/volume) 9 mmol/L 5-14 Serum or plasma urea nitrogen measurement (mass/volume) 33 mg/dL 7-18 Serum or plasma creatinine measurement (mass/volume) 1.01 mg/dL 0.60-1.30 Serum or plasma urea nitrogen/creatinine mass ratio 33 NRG Serum or plasma creatinine measurement with calculation of estimated glomerular filtration rate > NRG Serum or plasma glucose measurement (mass/volume) 144 mg/dL 70-105 Serum or plasma calcium measurement (mass/volume) 8.4 mg/dL 8.5-10.1 Serum or plasma total bilirubin measurement (mass/volume) 0.4 mg/dL 0.1-1.0 Serum or plasma alkaline phosphatase measurement (enzymatic activity/volume) 44 U/L 40-136 Serum or plasma aspartate aminotransferase measurement (enzymatic activity/volume) 40 U/L 5-34 Serum or plasma alanine aminotransferase measurement (enzymatic activity/volume) 122 U/L 0-55 Serum or plasma protein measurement (mass/volume) 4.9 g/dL 6.4-8.2 Serum or plasma albumin measurement (mass/volume) 2.7 g/dL 3.2-4.5 CALCIUM CORRECTED 9.4 mg/dL 8.5-10.1 Magnesium - 09/17/18 04:55 Magnesium 2.2 mg/dL 1.8-2.4 Blood manual differential performed detection - 09/17/18 04:55 Blood monocytes/100 leukocytes 2 % NRG Manual blood segmented neutrophils/100 leukocytes 86 % NRG Blood band neutrophils/100 leukocytes 4 % NRG Manual blood lymphocytes/100 leukocytes 8 % NRG Blood erythrocyte morphology finding identification NORMAL NRG Serum or plasma lithium measurement (moles/volume) - 09/17/18 04:55 BNP level 37.1 pg/mL <100.0 Complete blood count (CBC) with automated white blood cell (WBC) differential - 09/18/18 04:50 Blood leukocytes automated count (number/volume) 39.4 10*3/uL 4.3-11.0 Blood erythrocytes automated count (number/volume) 2.37 10*6/uL 4.35-5.85 Venous blood hemoglobin measurement (mass/volume) 7.2 g/dL 13.3-17.7 Blood hematocrit (volume fraction) 21 % 40-54 Automated erythrocyte mean corpuscular volume 90 [foz_us] 80-99 Automated erythrocyte mean corpuscular hemoglobin (mass per erythrocyte) 30 pg 25-34 Automated erythrocyte mean corpuscular hemoglobin concentration measurement (mass/volume) 34 g/dL 32-36 Automated erythrocyte distribution width ratio 14.8 % 10.0- 14.5 Automated blood platelet count (count/volume) 350 10*3/uL 130-400 Automated blood platelet mean volume measurement 9.8 [foz_us] 7.4-10.4 Automated blood neutrophils/100 leukocytes 75 % 42-75 Automated blood lymphocytes/100 leukocytes 12 % 12-44 Blood monocytes/100 leukocytes 13 % 0-12 Automated blood eosinophils/100 leukocytes 0 % 0-10 Automated blood basophils/100 leukocytes 0 % 0-10 Blood neutrophils automated count (number/volume) 29.4 10*3 1.8-7.8 Blood lymphocytes automated count (number/volume) 4.9 10*3 1.0-4.0 Blood monocytes automated count (number/volume) 5.1 10*3 0.0- 1.0 Automated eosinophil count 0.0 10*3/uL 0.0-0.3 Automated blood basophil count (count/volume) 0.0 10*3/uL 0.0-0.1 Comprehensive metabolic panel - 09/18/18 04:50 Serum or plasma sodium measurement (moles/volume) 139 mmol/L 135-145 Serum or plasma potassium measurement (moles/volume) 4.2 mmol/L 3.6-5.0 Serum or plasma chloride measurement (moles/volume) 105 mmol/L 98-107 Carbon dioxide 25 mmol/L 21-32 Serum or plasma anion gap determination (moles/volume) 9 mmol/L 5-14 Serum or plasma urea nitrogen measurement (mass/volume) 51 mg/dL 7-18 Serum or plasma creatinine measurement (mass/volume) 1.25 mg/dL 0.60-1.30 Serum or plasma urea nitrogen/creatinine mass ratio 41 NRG Serum or plasma creatinine measurement with calculation of estimated glomerular filtration rate 56 NRG Serum or plasma glucose measurement (mass/volume) 150 mg/dL 70-105 Serum or plasma calcium measurement (mass/volume) 8.4 mg/dL 8.5-10.1 Serum or plasma total bilirubin measurement (mass/volume) 0.3 mg/dL 0.1-1.0 Serum or plasma alkaline phosphatase measurement (enzymatic activity/volume) 31 U/L 40-136 Serum or plasma aspartate aminotransferase measurement (enzymatic activity/volume) 31 U/L 5-34 Serum or plasma alanine aminotransferase measurement (enzymatic activity/volume) 111 U/L 0-55 Serum or plasma protein measurement (mass/volume) 4.2 g/dL 6.4-8.2 Serum or plasma albumin measurement (mass/volume) 2.5 g/dL 3.2-4.5 CALCIUM CORRECTED 9.6 mg/dL 8.5-10.1 RED CELLS LEUKO REDUCED AS1 - 09/18/18 09:00 RED CELLS LEUKO REDUCED AS1 TRANSFUSED 09/18/18 1129 NRG Blood type T Indirect antibody screen panel - 09/18/18 09:00 ABO+Rh group AP NRG Transfusion band number [id number] NRG Blood group antibody screen NEGATIVE NRG Fungus culture - 09/18/18 13:10 QUANTITY OF GROWTH Many NRG FTX;REPORTABLE ID REPORTED BY L 09/20/18 16:05 NRG Fungus culture [id number] NRG Note: Martine krusei is innately resistant to fluconazole NRG CAP REFERENCE (Reference: CAP Final Critique 2007 F1-B p.10) NRG Complete urinalysis with reflex to culture - 09/18/18 15:25 Urine color determination YELLOW NRG Urine clarity determination SLIGHTLY CLOUDY NRG Urine pH measurement by test strip 5 5-9 Specific gravity of urine by test strip 1.010 1.016-1.022 Urine protein assay by test strip, semi-quantitative 2+ NEGATIVE Urine glucose detection by automated test strip NEGATIVE NEGATIVE Erythrocytes detection in urine sediment by light microscopy 1+ NEGATIVE Urine ketones detection by automated test strip NEGATIVE NEGATIVE Urine nitrite detection by test strip NEGATIVE NEGATIVE Urine total bilirubin detection by test strip NEGATIVE NEGATIVE Urine urobilinogen measurement by automated test strip (mass/volume) NORMAL NORMAL Urine leukocyte esterase detection by dipstick NEGATIVE NEGATIVE Automated urine sediment erythrocyte count by microscopy (number/high power field) RARE NRG Automated urine sediment leukocyte count by microscopy (number/high power field) [HPF] NRG Bacteria detection in urine sediment by light microscopy NEGATIVE NRG Crystals detection in urine sediment by light microscopy NONE NRG Casts detection in urine sediment by light microscopy PRESENT NRG Mucus detection in urine sediment by light microscopy NEGATIVE NRG Complete urinalysis with reflex to culture NO NRG Hyaline casts detection in urine sediment by light microscopy 2-5 NRG Complete blood count (CBC) with automated white blood cell (WBC) differential - 09/19/18 06:45 Blood leukocytes automated count (number/volume) 30.1 10*3/uL 4.3-11.0 Blood erythrocytes automated count (number/volume) 2.20 10*6/uL 4.35-5.85 Venous blood hemoglobin measurement (mass/volume) 6.4 g/dL 13.3-17.7 Blood hematocrit (volume fraction) 20 % 40-54 Automated erythrocyte mean corpuscular volume 89 [foz_us] 80-99 Automated erythrocyte mean corpuscular hemoglobin (mass per erythrocyte) 29 pg 25-34 Automated erythrocyte mean corpuscular hemoglobin concentration measurement (mass/volume) 33 g/dL 32-36 Automated erythrocyte distribution width ratio 15.5 % 10.0- 14.5 Automated blood platelet count (count/volume) 239 10*3/uL 130-400 Automated blood platelet mean volume measurement 10.1 [foz_us] 7.4-10.4 Automated blood neutrophils/100 leukocytes 83 % 42-75 Automated blood lymphocytes/100 leukocytes 8 % 12-44 Blood monocytes/100 leukocytes 9 % 0-12 Automated blood eosinophils/100 leukocytes 0 % 0-10 Automated blood basophils/100 leukocytes 0 % 0-10 Blood neutrophils automated count (number/volume) 25.0 10*3 1.8-7.8 Blood lymphocytes automated count (number/volume) 2.4 10*3 1.0-4.0 Blood monocytes automated count (number/volume) 2.6 10*3 0.0- 1.0 Automated eosinophil count 0.0 10*3/uL 0.0-0.3 Automated blood basophil count (count/volume) 0.0 10*3/uL 0.0-0.1 Comprehensive metabolic panel - 09/19/18 06:45 Serum or plasma sodium measurement (moles/volume) 140 mmol/L 135-145 Serum or plasma potassium measurement (moles/volume) 3.8 mmol/L 3.6-5.0 Serum or plasma chloride measurement (moles/volume) 110 mmol/L 98-107 Carbon dioxide 24 mmol/L 21-32 Serum or plasma anion gap determination (moles/volume) 6 mmol/L 5-14 Serum or plasma urea nitrogen measurement (mass/volume) 46 mg/dL 7-18 Serum or plasma creatinine measurement (mass/volume) 1.18 mg/dL 0.60-1.30 Serum or plasma urea nitrogen/creatinine mass ratio 39 NRG Serum or plasma creatinine measurement with calculation of estimated glomerular filtration rate 60 NRG Serum or plasma glucose measurement (mass/volume) 129 mg/dL 70-105 Serum or plasma calcium measurement (mass/volume) 7.9 mg/dL 8.5-10.1 Serum or plasma total bilirubin measurement (mass/volume) 0.3 mg/dL 0.1-1.0 Serum or plasma alkaline phosphatase measurement (enzymatic activity/volume) 28 U/L 40-136 Serum or plasma aspartate aminotransferase measurement (enzymatic activity/volume) 18 U/L 5-34 Serum or plasma alanine aminotransferase measurement (enzymatic activity/volume) 65 U/L 0-55 Serum or plasma protein measurement (mass/volume) 3.7 g/dL 6.4-8.2 Serum or plasma albumin measurement (mass/volume) 2.2 g/dL 3.2-4.5 CALCIUM CORRECTED 9.3 mg/dL 8.5-10.1 Complete blood count (CBC) with automated white blood cell (WBC) differential - 09/20/18 06:43 Blood leukocytes automated count (number/volume) 18.7 10*3/uL 4.3-11.0 Blood erythrocytes automated count (number/volume) 2.92 10*6/uL 4.35-5.85 Venous blood hemoglobin measurement (mass/volume) 8.9 g/dL 13.3-17.7 Blood hematocrit (volume fraction) 26 % 40-54 Automated erythrocyte mean corpuscular volume 87 [foz_us] 80-99 Automated erythrocyte mean corpuscular hemoglobin (mass per erythrocyte) 30 pg 25-34 Automated erythrocyte mean corpuscular hemoglobin concentration measurement (mass/volume) 35 g/dL 32-36 Automated erythrocyte distribution width ratio 15.0 % 10.0- 14.5 Automated blood platelet count (count/volume) 181 10*3/uL 130-400 Automated blood platelet mean volume measurement 9.7 [foz_us] 7.4-10.4 Automated blood neutrophils/100 leukocytes 77 % 42-75 Automated blood lymphocytes/100 leukocytes 11 % 12-44 Blood monocytes/100 leukocytes 11 % 0-12 Automated blood eosinophils/100 leukocytes 1 % 0-10 Automated blood basophils/100 leukocytes 0 % 0-10 Blood neutrophils automated count (number/volume) 14.5 10*3 1.8-7.8 Blood lymphocytes automated count (number/volume) 2.0 10*3 1.0-4.0 Blood monocytes automated count (number/volume) 2.1 10*3 0.0- 1.0 Automated eosinophil count 0.1 10*3/uL 0.0-0.3 Automated blood basophil count (count/volume) 0.0 10*3/uL 0.0-0.1 Comprehensive metabolic panel - 09/20/18 06:43 Serum or plasma sodium measurement (moles/volume) 143 mmol/L 135-145 Serum or plasma potassium measurement (moles/volume) 4.0 mmol/L 3.6-5.0 Serum or plasma chloride measurement (moles/volume) 111 mmol/L 98-107 Carbon dioxide 25 mmol/L 21-32 Serum or plasma anion gap determination (moles/volume) 7 mmol/L 5-14 Serum or plasma urea nitrogen measurement (mass/volume) 31 mg/dL 7-18 Serum or plasma creatinine measurement (mass/volume) 1.04 mg/dL 0.60-1.30 Serum or plasma urea nitrogen/creatinine mass ratio 30 NRG Serum or plasma creatinine measurement with calculation of estimated glomerular filtration rate > NRG Serum or plasma glucose measurement (mass/volume) 103 mg/dL 70-105 Serum or plasma calcium measurement (mass/volume) 7.9 mg/dL 8.5-10.1 Serum or plasma total bilirubin measurement (mass/volume) 0.5 mg/dL 0.1-1.0 Serum or plasma alkaline phosphatase measurement (enzymatic activity/volume) 30 U/L 40-136 Serum or plasma aspartate aminotransferase measurement (enzymatic activity/volume) 19 U/L 5-34 Serum or plasma alanine aminotransferase measurement (enzymatic activity/volume) 47 U/L 0-55 Serum or plasma protein measurement (mass/volume) 3.9 g/dL 6.4-8.2 Serum or plasma albumin measurement (mass/volume) 2.2 g/dL 3.2-4.5 CALCIUM CORRECTED 9.3 mg/dL 8.5-10.1 Complete blood count (CBC) with automated white blood cell (WBC) differential - 09/21/18 06:31 Blood leukocytes automated count (number/volume) 17.6 10*3/uL 4.3-11.0 Blood erythrocytes automated count (number/volume) 2.82 10*6/uL 4.35-5.85 Venous blood hemoglobin measurement (mass/volume) 8.5 g/dL 13.3-17.7 Blood hematocrit (volume fraction) 26 % 40-54 Automated erythrocyte mean corpuscular volume 90 [foz_us] 80-99 Automated erythrocyte mean corpuscular hemoglobin (mass per erythrocyte) 30 pg 25-34 Automated erythrocyte mean corpuscular hemoglobin concentration measurement (mass/volume) 33 g/dL 32-36 Automated erythrocyte distribution width ratio 15.9 % 10.0- 14.5 Automated blood platelet count (count/volume) 241 10*3/uL 130-400 Automated blood platelet mean volume measurement 9.5 [foz_us] 7.4-10.4 Automated blood neutrophils/100 leukocytes 78 % 42-75 Automated blood lymphocytes/100 leukocytes 10 % 12-44 Blood monocytes/100 leukocytes 11 % 0-12 Automated blood eosinophils/100 leukocytes 1 % 0-10 Automated blood basophils/100 leukocytes 0 % 0-10 Blood neutrophils automated count (number/volume) 13.7 10*3 1.8-7.8 Blood lymphocytes automated count (number/volume) 1.7 10*3 1.0-4.0 Blood monocytes automated count (number/volume) 2.0 10*3 0.0- 1.0 Automated eosinophil count 0.2 10*3/uL 0.0-0.3 Automated blood basophil count (count/volume) 0.0 10*3/uL 0.0-0.1 Comprehensive metabolic panel - 09/21/18 06:31 Serum or plasma sodium measurement (moles/volume) 140 mmol/L 135-145 Serum or plasma potassium measurement (moles/volume) 3.8 mmol/L 3.6-5.0 Serum or plasma chloride measurement (moles/volume) 109 mmol/L 98-107 Carbon dioxide 25 mmol/L 21-32 Serum or plasma anion gap determination (moles/volume) 6 mmol/L 5-14 Serum or plasma urea nitrogen measurement (mass/volume) 22 mg/dL 7-18 Serum or plasma creatinine measurement (mass/volume) 0.92 mg/dL 0.60-1.30 Serum or plasma urea nitrogen/creatinine mass ratio 24 NRG Serum or plasma creatinine measurement with calculation of estimated glomerular filtration rate > NRG Serum or plasma glucose measurement (mass/volume) 96 mg/dL 70-105 Serum or plasma calcium measurement (mass/volume) 7.8 mg/dL 8.5-10.1 Serum or plasma total bilirubin measurement (mass/volume) 0.6 mg/dL 0.1-1.0 Serum or plasma alkaline phosphatase measurement (enzymatic activity/volume) 25 U/L 40-136 Serum or plasma aspartate aminotransferase measurement (enzymatic activity/volume) 17 U/L 5-34 Serum or plasma alanine aminotransferase measurement (enzymatic activity/volume) 40 U/L 0-55 Serum or plasma protein measurement (mass/volume) 4.1 g/dL 6.4-8.2 Serum or plasma albumin measurement (mass/volume) 2.3 g/dL 3.2-4.5 CALCIUM CORRECTED 9.2 mg/dL 8.5-10.1 Automated blood complete blood count (hemogram) panel - 09/24/18 05:55 Blood leukocytes automated count (number/volume) 13.0 10*3/uL 4.3-11.0 Blood erythrocytes automated count (number/volume) 3.16 10*6/uL 4.35-5.85 Venous blood hemoglobin measurement (mass/volume) 9.6 g/dL 13.3-17.7 Blood hematocrit (volume fraction) 29 % 40-54 Automated erythrocyte mean corpuscular volume 90 [foz_us] 80-99 Automated erythrocyte mean corpuscular hemoglobin (mass per erythrocyte) 30 pg 25-34 Automated erythrocyte mean corpuscular hemoglobin concentration measurement (mass/volume) 34 g/dL 32-36 Automated erythrocyte distribution width ratio 14.7 % 10.0- 14.5 Automated blood platelet count (count/volume) 346 10*3/uL 130-400 Automated blood platelet mean volume measurement 8.7 [foz_us] 7.4-10.4 Whole blood basic metabolic panel - 09/24/18 05:55 Serum or plasma sodium measurement (moles/volume) 138 mmol/L 135-145 Serum or plasma potassium measurement (moles/volume) 3.8 mmol/L 3.6-5.0 Serum or plasma chloride measurement (moles/volume) 102 mmol/L 98-107 Carbon dioxide 28 mmol/L 21-32 Serum or plasma anion gap determination (moles/volume) 8 mmol/L 5-14 Serum or plasma urea nitrogen measurement (mass/volume) 18 mg/dL 7-18 Serum or plasma creatinine measurement (mass/volume) 0.97 mg/dL 0.60-1.30 Serum or plasma urea nitrogen/creatinine mass ratio 19 NRG Serum or plasma creatinine measurement with calculation of estimated glomerular filtration rate > NRG Serum or plasma glucose measurement (mass/volume) 98 mg/dL 70-105 Serum or plasma calcium measurement (mass/volume) 8.3 mg/dL 8.5-10.1 Magnesium - 09/24/18 05:55 Magnesium 1.7 mg/dL 1.8-2.4 Encounters ACCT No. Visit Date/Time Discharge Status Pt. Type Provider Facility Loc./Unit Complaint [id number] 06/18/2012 14:04:00 06/18/2012 23:59:59 CLS Outpatient MIGUEL ANGEL RUIZ APRN [id number] 05/17/2012 10:39:00 05/17/2012 23:59:59 CLS Outpatient JOSEPH ARIASMaci MIGUEL ANGEL Baires [id number] 04/05/2012 09:09:00 04/05/2012 23:59:59 CLS Outpatient MIGUEL ANGEL RUIZ APRN [id number] 04/03/2012 14:59:00 04/03/2012 23:59:59 CLS Outpatient [id number] 09/06/2012 10:57:00 Document Registration [id number] 09/30/2018 11:40:00 09/30/2018 23:59:59 CLS Outpatient STACIE ARMENDARIZ, [facility] [id number] 10/29/2018 07:28:00 10/29/2018 23:59:59 CLS Outpatient CALLIE ARMENDARIZ FACC, KAISER GALVAN CCDS [facility] CARD SOB [id number] 10/17/2018 12:26:00 10/17/2018 23:59:59 CLS Preadmit BENJAMIN CASON APRN [facility] RAD DYSPNEA,COPD,TOBACCO USE [id number] 10/17/2018 12:23:00 10/17/2018 23:59:59 CLS Preadmit BENJAMIN CASON APRN [facility] RT DYSPNEA,COPD,TOBACCO USE [id number] 09/09/2018 21:45:00 09/24/2018 12:49:00 DIS Inpatient ORLANDO ARMENDARIZ, ILIA Lux [facility] 4TH SEPSIS (SEVERE),PNA,COPD EXAC W/ HYPOXIA [id number] 11/05/2018 13:00:00 PEN Preadmit CALLIE ARMENDARIZ FACC, [facility] GALVAN CCDS [facility] CATH ABN STRESS TEST,SOB
[2018-11-05] MEDS ORDERED: NS IV 1000 ML 1,000 ML IV SCH ×2 (10:45→14:15)
[2018-11-05 11:05] LABS: HEMOGLOBIN 14.5 G/DL (13.3-17.7); MEAN PLATELET VOLUME 8.9 FL (7.4-10.4); RED CELL DISTRIBUTION WIDTH 14.7 % (10.0-14.5); WHITE BLOOD COUNT 9.4 10^3/uL (4.3-11.0)
[2018-11-05] MEDS ORDERED: FLUT12AE4 IH (11:09)
[2018-11-05] MEDS ORDERED: POTA10TA10 PO (11:09)
[2018-11-05] MEDS ORDERED: ASPI-586 PO (11:09)
[2018-11-05] MEDS ORDERED: FURO20TA4 PO (11:09)
[2018-11-05] MEDS ORDERED: SUCR1TAB PO (11:09)
[2018-11-05] MEDS ORDERED: PANT40TA2 PO (11:09)
[2018-11-05 11:18] LABS: INR 0.9 (0.8-1.4); PROTHROMBIN TIME PATIENT 12.9 SEC (12.2-14.7)
[2018-11-05 11:24] LABS: BILIRUBIN,TOTAL 0.5 MG/DL (0.1-1.0); CALCIUM 10.4 MG/DL (8.5-10.1); CREATININE SERUM 1.52 MG/DL (0.60-1.30); POTASSIUM 4.4 MMOL/L (3.6-5.0); TOTAL PROTEIN 7.4 GM/DL (6.4-8.2)
[2018-11-05] MEDS ORDERED: MIDAZOLAM 5 MG/5 ML (VERSED) VIAL ONE (13:05)
[2018-11-05] MEDS ORDERED: fentaNYL INJECTION 100 MCG/2 ML AMP ONE (13:06)
--- NOTE | 2018-11-05 14:14 | Cardiac Procedure Note-CS/ASA ---
Pre-Procedure Note Pre-Op Procedure Note H&P Reviewed The H&P was reviewed, patient examined and no changes noted. Date H&P Reviewed: Nov 05, 2018 Time H&P Reviewed: 13:40 Conscious Sedation Pre-Proced Time 13:40 ASA Score 3 For ASA 3 and 4: Consider anesthesia and medical clearance. Also, for patients with a history of failed moderate sedation consider anesthesia. Airway Lungs Heart ASA score ASA 1: a normal healthy patient ASA 2: a patient with a mild systemic disease (mid diabetes, controlled hypertension, obesity ASA 3: a patient with a severe systemic disease that limits activity (angina, COPD, prior Myocardial infarction) ASA 4: a patient with an incapacitating disease that is a constant threat to life (CHF, renal failure) ASA 5: a moribund patient not expected to survive 24 hrs. (ruptured aneurysm) ASA 6: a declared brain- patient whose organs are being harvested. For emergent operations, add the letter E after the classification Mallampati Classification Grade 2 Sedation Plan Analgesia, Amnesia, Plan communicated to team members, Discussed options with patient/fam, Discussed risks with patient/fam The patient is an appropriate candidate to undergo the planned procedure, sedation, and anesthesia. The patient immediately re-assessed prior to indication. KAISER LEDESMA MD FACP FAC CCDS Nov 05, 2018 14:14
[2018-11-05] MEDS ORDERED: PATIENT MAY USE OWN MEDS, ALL PO SCH (14:15)
[2018-11-05] MEDS ORDERED: ATOR40TA70 PO (14:18)
--- NOTE | 2018-11-05 14:20 | Discharge Inst-Cardiology ---
Discharge Inst-Cardiac Discharge Medications New Medications: Atorvastatin Calcium (Atorvastatin Calcium) 40 Mg Tablet 40 MG PO DAILY, #30 TAB 5 Refills Continued Medications: Albuterol Sulfate (Proair Hfa) 1 Puff Puff 2 PUFF IH Q4H PRN for SHORTNESS OF BREATH, INHALER Aspirin (Aspir 81) 81 Mg Tablet.dr 81 MG PO DAILY, TAB Fluticasone/Salmeterol (Advair Hfa 115-21 Mcg Inhaler) 12 Gm Hfa.aer.ad 2 PUFF IH BID, GM Furosemide (Furosemide) 20 Mg Tablet 20 MG PO DAILY, TAB Pantoprazole Sodium (Protonix) 40 Mg Tablet.dr 40 MG PO DAILY, TAB Potassium Chloride (Potassium Chloride) 10 Meq Tablet.er 10 MEQ PO BID, TAB Sucralfate (Sucralfate) 1 Gm Tablet 1 GM PO TERESA BONDS ALI MD FACP FAC CCDS Nov 05, 2018 14:20
--- NOTE | 2018-11-05 14:21 | Discharge Inst-Post CATH ---
Discharge Inst-CATH/EP Post Cardiac Cath/EP D/C Inst Follow Up/Plan F/u with Dr Pagan in 1-2 weeks No tobacco use ACTIVITY * Go Home directly and rest. * Limit activity of the leg (or wrist if it was used) for 7 days including aerobics, swimming, jogging, bicycling, etc. * Restrict stair-climbing for 7 days if possible, if not, climb up with your non-cath leg, then bring together on the same step. * Avoid lifting, pushing, pulling or excessive movement of the affected extremity for 7 days. * Customary sexual activity may be resumed after 2 days-use caution not to use a position that strains or causes pain to the affected extremity. * No driving for 24 hours. * NO SMOKING. * Avoid straining for bowel movements for 7 days. * Gentle walking on level ground is allowed. * Returning to work will depend on the type of procedure and the results. Your doctor will discuss this with you. CALL YOUR DOCTOR FOR ANY OF THE FOLLOWING: *If bleeding from the puncture site occurs- Apply gentle pressure to site with clean cloth and call your doctor or EMS. * If a knot or lump forms under the skin, increases in size, or causes pain. * If bruising appears to be worsening or moving further down your leg instead of disappearing. * Temperature above 101 F. CARE OF YOUR GROIN INCISION; * Bruising or purple discoloration of the skin near the puncture site is common. * You may shower only, no bathtub bathing for 5 days. Be careful to avoid slipping as your leg may feel stiff. * If a closure device was used on your femoral artery, please see the attached guide regarding care of the device and your leg. * Leave dressing on FOR 24 hours. CARE OF YOUR WRIST INCISION; * Bruising or purple discoloration of the skin near the puncture site is common. * You may shower. * DO NOT submerge wrist. * Leave dressing on FOR 24 hours. KAISER PAGAN MD FACP FAC CCDS Nov 05, 2018 14:21
--- NOTE | 2018-11-05 16:29 | CARDIAC CATHETERIZATION ---
DATE OF SERVICE: 11/05/2018 CARDIAC CATHETERIZATION REPORT The patient is a 73-year-old man who was hospitalized with gastrointestinal bleeding in early 09/2018. At that time, he also had mild acute diastolic congestive heart failure and minimal troponin elevation, which was felt to be due to type 2 myocardial infarction. He underwent myocardial perfusion imaging study on 10/29/2018. It showed evidence of inferoapical ischemia. Accordingly, cardiac catheterization was recommended and informed consent was obtained. PROCEDURE: He was brought to the cardiac catheterization laboratory today. Vigorous perioperative hydration was carried out starting before the procedure, continued during the procedure and afterwards. This was because he has baseline renal insufficiency and our effort was to reduce risk of contrast nephropathy. The right groin was prepared and draped in the usual sterile fashion. Lidocaine 1% was used for local anesthesia. Modified Seldinger technique was used to advance a 5-Pakistani sheath in the right femoral artery. A 5-Pakistani JL4 catheter for left angiography, 5-Pakistani JR4 catheter for right coronary angiography, 5-Pakistani pigtail catheter for left heart catheterization and left ventricular angiography. Catheter exchanges were carried out over a [employer] wire. Angiography of the right femoral artery was carried out through the sheath at the end of the procedure and Mynx was used to achieve hemostasis. He tolerated the procedure well. HEMODYNAMICS: Left ventricular end-diastolic pressure following coronary angiography was 9 mmHg. There is no significant pressure gradient on pullback across the aortic valve. Ascending aortic pressure was 110/59 with a mean of 83 mmHg. CORONARY ANGIOGRAPHY: Diffuse coronary calcification is seen. There is heavy coronary calcification involving the proximal and mid left coronary arterial system, including the left main. The left main coronary artery has approximately 20% proximal and ostial stenosis. Left anterior descending artery has diffuse plaque, relatively mild. The left circumflex artery exhibits some mild diffuse plaque. The right coronary artery is occluded in its proximal portion. This is a chronic total occlusion of a long segment right coronary artery and the posterior descending branch of the right coronary artery is collateralized by the apical left anterior descending artery. LEFT VENTRICULAR ANGIOGRAPHY: Left ventricular angiography was carried out in the right anterior oblique projection. Global left ventricular systolic function is well preserved. Left ventricular ejection fraction is approximately 65%. There does not appear to be distinct regional wall motion abnormality on this view. CONCLUSIONS: 1. Coronary artery disease primarily consisting of chronic total occlusion of the proximal right coronary artery with heavy collateralization from the left coronary system. The left coronary system has diffuse moderate disease and calcification. 2. Normal global left ventricular systolic function with ejection fraction approximately 65% without significant regional wall motion noted. 3. Normal left ventricular end-diastolic pressure. DISCUSSION AND RECOMMENDATIONS: Based on results of the study, it appears appropriate to continue a conservative approach. Risk factor modification has been reviewed. Outpatient followup is advised. Job ID: [id number] DocumentID: [id number] Dictated Date: 11/05/2018 14:09:46 [employer] Date: 11/05/2018 16:29:10 Dictated By: KAISER LEDESMA MD, MA, FACP, FACC, MTDD
== END 2018-11-05 18:30 | disposition home or self-care (01) ==
LOC: CATH 10:32 → SDC 14:29 → CATH 18:30
PROVIDERS: ATTEND Internal Medicine Cardiovascular Disease
DX: I25.10 Atherosclerotic heart disease of native coronary artery without angina pectoris (principal); I25.82 Chronic total occlusion of coronary artery; I50.9 Heart failure, unspecified; E78.5 Hyperlipidemia, unspecified; J44.9 Chronic obstructive pulmonary disease, unspecified; Z86.73 Personal history of transient ischemic attack (TIA), and cerebral infarction without residual deficits; Z85.028 Personal history of other malignant neoplasm of stomach; Z79.82 Long term (current) use of aspirin; Z79.899 Other long term (current) drug therapy; Z87.891 Personal history of nicotine dependence
CPT/HCPCS: 36415; 80053; 80061; 85027; 85610; 85730; 87081; 93458

== ENCOUNTER → 2018-11-11 | Outpatient (CLI) | payer MEDICARE, OTHER ==
[~2018-11-11] MED LIST changes: +ASPI-586 PO; +ATOR40TA70 PO; +POTA10TA10 PO
[2018-11-11 07:49] LABS: CREATININE SERUM 1.72 MG/DL (0.60-1.30)
--- NOTE | 2018-11-11 09:42 | Diagnostic Imaging Report ---
PROCEDURE: CT chest without contrast. TECHNIQUE: Multiple contiguous axial images were obtained through the chest without the use of intravenous contrast. Auto Exposure Controls were utilized during the CT exam to meet ALARA standards for radiation dose reduction. INDICATION: COPD, dyspnea and tobacco use FINDINGS: There is emphysematous disease with some air-trapping compatible with COPD. There is interstitial scarring in the lung bases right greater than left. There is no pleural or pericardial fluid. There is no pneumothorax. The heart size is normal. There are extensive coronary artery calcifications. There is no pneumothorax. There is no pathologically enlarged adenopathy in the chest. There is atrophy of the right kidney. The visualized left knee is grossly unremarkable. Intraabdominal structures are otherwise unremarkable. There is moderate thoracic spondylosis. IMPRESSION: 1. COPD with some chronic interstitial scarring in the lung bases right greater than left. 2. Extensive coronary artery calcification. 3. Atrophy of the right kidney. Dictated by: Dictated on workstation # [id number]
== END ==
LOC: RAD 07:18
PROVIDERS: ATTEND Nurse Practitioner Family
DX: J44.9 Chronic obstructive pulmonary disease, unspecified (principal); I25.10 Atherosclerotic heart disease of native coronary artery without angina pectoris; N26.1 Atrophy of kidney (terminal); J30.9 Allergic rhinitis, unspecified; Z72.0 Tobacco use
CPT/HCPCS: 36415; 71250; 82565; 84520

== ENCOUNTER → 2019-02-12 | Outpatient (CLI) | payer MEDICARE, OTHER ==
[~2019-02-12] MED LIST changes: +RT-ALBUTEROL SULF 2.5 MG/3 ML PRE-MIX VIAL INH ONE
== END ==
LOC: RT 09:07
PROVIDERS: ATTEND Nurse Practitioner Family
DX: J30.9 Allergic rhinitis, unspecified (principal); J44.9 Chronic obstructive pulmonary disease, unspecified; Z72.0 Tobacco use
CPT/HCPCS: 94060; 94640; 94726; 94729

== ENCOUNTER 2019-06-15 09:06 | Inpatient (IN) | payer MEDICARE, OTHER ==
[~2019-06-15] VITALS: Ht 175.3 cm; Wt 58.8 kg
[2019-06-15] VITALS (10 sets, daily range): BP systolic 90–108; BP diastolic 58–76
[~2019-06-15 09:06] MED LIST changes: -RT-ALBUTEROL SULF 2.5 MG/3 ML PRE-MIX VIAL INH ONE; +SIMV10TA26 PO; -SIMV10TA3 PO
[2019-06-15] MEDS ORDERED: NS IV 1000 ML 1,000 ML IV SCH ×3 (09:14→12:13)
[2019-06-15] MEDS ORDERED: NS IV 500 ML 500 ML IV ONE (09:14)
[2019-06-15] MEDS ORDERED: methylPREDNISolone 125 MG (Solu-MEDROL) VIAL IV STA (09:14)
[2019-06-15] MEDS ORDERED: RT-ALBUTEROL/IPRATROPIUM 3 ML (DUONEB) VIAL INH ONE (09:15)
[2019-06-15] MEDS ORDERED: CEFEPIME INJECTION 1,000 MG in WATER (STERILE) FOR INJECTION 10 ML IV ONE (09:15)
[2019-06-15] MEDS ORDERED: VANCOMYCIN INJECTION 1,000 MG in NS (IVPB) 250 ML IV ONE (09:15)
[2019-06-15 09:27] LABS: BASOPHILS # (AUTO) 0.1 10^3/uL (0.0-0.1); BASOPHILS % (AUTO) 0 % (0-10); EOSINOPHILS % (AUTO) 0 % (0-10); HEMATOCRIT 43 % (40-54); HEMOGLOBIN 14.3 G/DL (13.3-17.7); LYMPHOCYTES # (AUTO) 3.1 X 10^3 (1.0-4.0); LYMPHOCYTES % (AUTO) 23 % (12-44); MEAN CORPUSCULAR HEMOGLOBIN 29 PG (25-34); MEAN CORPUSCULAR HGB CONC 33 G/DL (32-36); MEAN CORPUSCULAR VOLUME 88 FL (80-99); MEAN PLATELET VOLUME 9.6 FL (7.4-10.4); MONOCYTES # (AUTO) 1.2 X 10^3 (0.0-1.0); MONOCYTES % (AUTO) 8 % (0-12); NEUTROPHILS # (AUTO) 9.6 X 10^3 (1.8-7.8); NEUTROPHILS % (AUTO) 69 % (42-75); PLATELET COUNT 266 10^3/uL (130-400); RED CELL DISTRIBUTION WIDTH 15.7 % (10.0-14.5); WHITE BLOOD COUNT 13.9 10^3/uL (4.3-11.0)
--- NOTE | 2019-06-15 09:28 | ED Respiratory ---
General Chief Complaint: Respiratory Problems Stated Complaint: FALL / SOA Source: patient Exam Limitations: no limitations History of Present Illness Date Seen by Provider: Jun 15, 2019 Time Seen by Provider: 09:05 Initial Comments Patient presents to ER by EMS from home where he lives with his son and chief complaint that he's been for the past 2 days feeling short of breath, wheezy, tired and slumped to the floor in the bathroom with his son standby. Denies striking his head or loss of consciousness. Said he just was too short of breath after getting up toilet. He has a history of COPD smokes a quarter pack cigarettes per day and is not oxygen dependent. Fire and rescue stated his oxygen sats were 68% when they arrived. EMS brought him in on a nonrebreather at 12 L/m 98%. The did not give a breathing treatment as they did not hear any wheezing. He denies any cardiac trouble, blood thinners, recent steroids or antibiotics. EMS reports sinus rhythm on the 12-lead. Respirations of 30-40/m. Allergies and Home Medications Allergies Coded Allergies: Penicillins (Verified Allergy, Unknown, 09/09/18) Home Medications Albuterol Sulfate 1 Puff Puff, 2 PUFF IH Q4H PRN for SHORTNESS OF BREATH, (Reported) Aspirin 81 Mg Tablet.dr, 81 MG PO DAILY, (Reported) Atorvastatin Calcium 40 Mg Tablet, 40 MG PO DAILY Prescribed by: KAISER LEDESMA on 11/05/18 1418 Fluticasone/Salmeterol 12 Gm Hfa.aer.ad, 2 PUFF IH BID, (Reported) Furosemide 20 Mg Tablet, 20 MG PO DAILY, (Reported) Pantoprazole Sodium 40 Mg Tablet.dr, 40 MG PO DAILY, (Reported) Potassium Chloride 10 Meq Tablet.er, 10 MEQ PO BID, (Reported) Sucralfate 1 Gm Tablet, 1 GM PO ACHS, (Reported) Patient Home Medication List Home Medication List Reviewed: Yes Review of Systems Review of Systems Constitutional: chills, fever, malaise EENTM: No hearing loss, No ear pain Respiratory: cough, dyspnea on exertion, phlegm, short of breath, wheezing Cardiovascular: No chest pain, No edema, No Hx of Intervention, No palpitations Gastrointestinal: No abdominal pain, No constipation, No nausea, No vomiting Genitourinary: No discharge, No dysuria Musculoskeletal: No back pain, No joint pain Skin: No pruritus, No rash Psychiatric/Neurological: Denies Headache, Denies Numbness All Other Systems Reviewed Negative Unless Noted: Yes Past Owqaits-Caoxwb-Kydhbr Hx Patient Social History Alcohol Use: Denies Use Recreational Drug Use: No Smoking Status: Never a Smoker Type Used: Cigarettes 2nd Hand Smoke Exposure: No Recent Foreign Travel: No Contact w/Someone Who Travel: No Recent Hopitalizations: No Immunizations Up To Date Tetanus Booster (TDap): More than 5yrs PED Vaccines UTD: Yes Date of Pneumonia Vaccine: Nov 06, 2015 Seasonal Allergies Seasonal Allergies: No Past Medical History Surgeries: Yes Bowel Surgery Respiratory: No Cardiac: No Neurological: No Reproductive Disorders: No Genitourinary: Yes Prostate Problems Gastrointestinal: No Musculoskeletal: No Endocrine: No HEENT: No Cancer: Yes (stomach or prostate, patient is unsure) Psychosocial: No Integumentary: No Family Medical History No Pertinent Family Hx Physical Exam Vital Signs - First Documented 06/15/19 10:59 FiO2 30 Capillary Refill : Height: 5'7.00" Weight: 120lbs. 0.0oz. [id number]; 18.8 BMI Method:Stated General Appearance: moderate distress, thin Eyes: Bilateral Eye Normal Inspection, Bilateral Eye PERRL, Bilateral Eye EOMI HEENT: PERRL/EOMI, normal ENT inspection; No pharynx normal (oropharynx is dry) Neck: full range of motion, normal inspection Respiratory: respiratory distress (moderate with worker breathing increased and respiratory rate of 35), decreased breath sounds, accessory muscle use (moderate), wheezing (all 4 lung hinojosa) Cardiovascular: normal peripheral pulses, regular rate, rhythm Gastrointestinal: normal bowel sounds, non tender, soft Extremities: non-tender, normal inspection, normal capillary refill Neurologic/Psychiatric: alert, normal mood/affect, oriented x 3 Focused Exam Sepsis Stage: Severe Sepsis Possible Source: Pulmonary Lactate Level 06/15/19 09:10: Lactic Acid Level 5.99*H 06/15/19 11:08: Lactic Acid Level 1.96 Time of Focused Exam: 11:44 Respiratory: Chest Non Tender, Accessory Muscle Use (mild), Respiratory Distress (mild), Wheezing Cardiovascular: Regular Rate, Rhythm (99), Normal Peripheral Pulses Capillary Refill: Less Than 3 Seconds Peripheral Pulses: 2+ Radial Pulses (R), 2+ Radial Pulses (L) Skin: normal color, warm/dry Lactic Acid Level Laboratory Tests Test 06/15/19 09:10 06/15/19 11:08 Lactic Acid Level 5.99 MMOL/L (0.50-2.00) *H 1.96 MMOL/L (0.50-2.00) Within 3hrs of presentation: Admin fluids, Admin ABX, Blood cultures prior to ABX's, Focus exam, Lactate level Procedures/Interventions Lumen: triple Central Line Procedure: betadine prep (as well as chlorhexidine prep), sterile drapes applied, sterile dressing applied Position: internal jugular (R) Anesthesia: Lidocaine Volume Anesthetic (ccs): 3 Complications: none Post Position: sutured, good blood return, position confirmed w/ CXR Risks, benefits and alternatives were explained the patient and his son and the patient consented. Consent was signed. Patient was then placed in Trendelenburg and draped out in the usual sterile fashion. We thoroughly shaved and then clean the site with Betadine followed by chlorhexidine. Site was accessed with a introducer needle using a 7 Hungarian 16 cm triple lumen catheter that we made a small incision in the skin using introducer needle. Guidewire did not cause any ectopy. The dilator was placed and removed easily. The catheter was then threaded over the guidewire stitched in place using the provided stitch and a sterile dressing was provided was placed over the catheter. Patient tolerated procedure well. X-ray demonstrated good position at the superior vena cava the level of the right atria not crossing the midline and no pneumothorax. Progress/Results/Core Measures Suspected Sepsis SIRS Temperature: Pulse: Respiratory Rate: Laboratory Tests 06/15/19 09:10: White Blood Count 13.9H Blood Pressure / Mean: 06/15/19 09:10: Lactic Acid Level 5.99*H 06/15/19 11:08: Lactic Acid Level 1.96 Laboratory Tests 06/15/19 09:10: Creatinine 2.52H, INR Comment 1.2, Platelet Count 266, Total Bilirubin 0.4 Results/Orders Lab Results Laboratory Tests Test 06/15/19 09:10 06/15/19 09:55 06/15/19 10:54 06/15/19 11:08 Range/Units White Blood Count 13.9 H 4.3-11.0 10^3/uL Red Blood Count 4.91 4.35-5.85 10^6/uL Hemoglobin 14.3 13.3-17.7 G/DL Hematocrit 43 40-54 % Mean Corpuscular Volume 88 80-99 FL Mean Corpuscular Hemoglobin 29 25-34 PG Mean Corpuscular Hemoglobin Concent 33 32-36 G/DL Red Cell Distribution Width 15.7 H 10.0-14.5 % Platelet Count 266 130-400 10^3/uL Mean Platelet Volume 9.6 7.4-10.4 FL Neutrophils (%) (Auto) 69 42-75 % Lymphocytes (%) (Auto) 23 12-44 % Monocytes (%) (Auto) 8 0-12 % Eosinophils (%) (Auto) 0 0-10 % Basophils (%) (Auto) 0 0-10 % Neutrophils # (Auto) 9.6 H 1.8-7.8 X 10^3 Lymphocytes # (Auto) 3.1 1.0-4.0 X 10^3 Monocytes # (Auto) 1.2 H 0.0-1.0 X 10^3 Eosinophils # (Auto) 0.0 0.0-0.3 10^3/uL Basophils # (Auto) 0.1 0.0-0.1 10^3/uL Prothrombin Time 15.5 H 12.2-14.7 SEC INR Comment 1.2 0.8-1.4 Activated Partial Thromboplast Time 37 H 24-35 SEC Sodium Level 137 135-145 MMOL/L Potassium Level 5.0 3.6-5.0 MMOL/L Chloride Level 107 98-107 MMOL/L Carbon Dioxide Level 11 L 21-32 MMOL/L Anion Gap 19 H 5-14 MMOL/L Blood Urea Nitrogen 27 H 7-18 MG/DL Creatinine 2.52 H 0.60-1.30 MG/DL Estimat Glomerular Filtration Rate 25 BUN/Creatinine Ratio 11 Glucose Level 130 H 70-105 MG/DL Lactic Acid Level 5.99 *H 1.96 0.50-2.00 MMOL/L Calcium Level 9.5 8.5-10.1 MG/DL Corrected Calcium 9.7 8.5-10.1 MG/DL Total Bilirubin 0.4 0.1-1.0 MG/DL Aspartate Amino Transf (AST/SGOT) 32 5-34 U/L Alanine Aminotransferase (ALT/SGPT) 15 0-55 U/L Alkaline Phosphatase 67 40-136 U/L Troponin I 0.093 H <0.028 NG/ML Total Protein 7.0 6.4-8.2 GM/DL Albumin 3.7 3.2-4.5 GM/DL Blood Gas Puncture Site LT RAD RT RAD Blood Gas Patient Temperature 39.1 37.4 Arterial Blood pH 7.32 *L 7.32 *L 7.37-7.43 Arterial Blood Partial Pressure CO2 29 L 33 L 35-45 MMHG Arterial Blood Partial Pressure O2 38 *L 98 H 79-93 MMHG Arterial Blood HCO3 14 *L 16 *L 23-27 MMOL/L Arterial Blood Total CO2 14.7 L 17.4 L 21.0-31.0 MMOL/L Arterial Blood Oxygen Saturation 51 L 97 94-100 % Arterial Blood Base Excess -10.6 L -8.5 L -2.5-2.5 MMOL/L Julian Test YES-POS YES-POS Blood Gas Ventilator Setting NO NO Blood Gas Inspired Oxygen 4 L 4 L Micro Results Microbiology 06/15/19 Influenza Types A,B Antigen (LILY) - Final, Complete My Orders Orders - DEBRA THOMAS Cbc With Automated Diff (06/15/19 09:14) Comprehensive Metabolic Panel (06/15/19 09:14) Blood Culture (06/15/19 09:14) Sputum Culture (06/15/19 09:14) Urinalysis (06/15/19 09:14) Urine Culture (06/15/19 09:14) Protime With Inr (06/15/19 09:14) Partial Thromboplastin Time (06/15/19 09:14) Chest 1 View, Ap/Pa Only (06/15/19 09:14) Ed Iv/Invasive Line Start (06/15/19 09:14) Ed Iv/Invasive Line Start (06/15/19 09:14) Ekg Tracing (06/15/19 09:14) Vital Signs Adult Sepsis Patie Q15M (06/15/19 09:14) O2 (06/15/19 09:14) Remove Rings In Anticipation O (06/15/19 09:14) Lactic Acid Analyzer (06/15/19 09:14) Influenza A And B Antigens (2/2/20 09:14) Ns Iv 1000 Ml (Sodium Chloride 0.9%) (06/15/19 09:14) Vancomycin Injection (Vancomycin Injecti (06/15/19 09:15) Cefepime Injection (Maxipime Injection) (06/15/19 09:15) Ed Iv/Invasive Line Start (06/15/19 09:14) Ns Iv 500 Ml (Sodium Chloride 0.9%) (06/15/19 09:14) Albuterol/Ipra Inhalation Soln (Duoneb I (06/15/19 09:15) Methylprednisolone Sod Succ (Solu-Medrol (06/15/19 09:14) Svn Small Volume Nebulizer (06/15/19 09:14) Troponin I (06/15/19 09:29) Aspirin Chewable Tablet (Baby Aspirin Ch (06/15/19 09:30) Acetaminophen Tablet (Tylenol Tablet) (06/15/19 09:45) Ed Iv/Invasive Line Start (06/15/19 09:45) Ns Iv 1000 Ml (Sodium Chloride 0.9%) (06/15/19 09:45) Arterial Blood Gas (06/15/19 09:56) Vapotherm - Admin Rt Rfs (06/15/19 10:49) Arterial Blood Gas (06/15/19 10:54) Medications Given in ED Current Medications Medications Dose Ordered Sig/Mauricio Route Start Time Stop Time Status Last Admin Dose Admin Acetaminophen 1,000 mg ONCE ONCE PO 06/15/19 09:45 06/15/19 09:46 DC 06/15/19 09:47 1,000 MG Albuterol/ Ipratropium 3 ml ONCE ONCE INH 06/15/19 09:15 06/15/19 09:23 DC 06/15/19 09:36 3 ML Aspirin 324 mg ONCE ONCE PO 06/15/19 09:30 06/15/19 09:32 DC 06/15/19 09:43 324 MG Cefepime HCl 1000 mg/Sterile Water 10 ml @ 200 mls/hr ONCE ONCE IV 06/15/19 09:15 06/15/19 09:23 DC 06/15/19 09:42 200 MLS/HR Vancomycin HCl 1000 mg/Sodium Chloride 250 ml @ 250 mls/hr ONCE ONCE IV 06/15/19 09:15 2/2/20 10:14 DC 06/15/19 10:05 250 MLS/HR Vital Signs/I&O 06/15/19 06/15/19 06/15/19 06/15/19 09:07 09:07 09:25 09:37 Temp 39.1 Pulse 125 Resp 25 B/P (MAP) 101/71 (81) Pulse Ox 98 98 94 92 O2 Delivery High Flow N/C Non Rebreather Nasal Cannula Nasal Cannula O2 Flow Rate 12.00 12.00 4.00 4.00 06/15/19 06/15/19 09:47 10:59 Temp 39.1 Pulse Ox 97 O2 Delivery Vapotherm O2 Flow Rate 40.00 FiO2 30 Capillary Refill : Progress Note : Time: 09:25 Progress Note COPD exacerbation versus influenza versus pneumonia/bronchitis versus other? Septic workup, ABG and a DuoNeb and then we'll reassess his respiratory status. He is still breathing about 30 breaths per minute on the nonrebreather at 8 L/m 98% oxygen sat. We'll give a dose of Solu-Medrol and we have chosen cefepime and vancomycin for antibiotic broad-spectrum coverage. ECG Initial ECG Impression Date: Jun 15, 2019 Initial ECG Impression Time: 09:10 Initial ECG Rate: 129 Initial ECG Rhythm: S.Tach Initial ECG Intervals: Normal Initial ECG Impression: Normal, Nonspecific Changes Comment Sinus tachycardia with lateral leads V3 through V6 with some [address] depression. Diagnostic Imaging Diagonstic Imaging: Xray Plain Films/CT/US/NM/MRI: chest (1v) Reviewed: Reviewed by Me Departure Communication (Admissions) Time/Spoke to Admitting Phy: 11:46 Discussed case lab imaging findings with Dr. Heard and he agrees with the patient the ICU on Vapotherm. MaT protocol, Solu-Medrol. He would not continue to trend The troponin because we feel that if this were to continue to trend up it would represent a type II cardiac strain related to the COPD distress and pneumonia. He would continue the antibiotics. Impression Primary Impression: Severe sepsis Additional Impressions: Pneumonia Qualified Codes: J18.9 - Pneumonia, unspecified organism COPD with acute lower respiratory infection Elevated troponin I level Acute kidney injury (nontraumatic) Disposition: ADMITTED INPATIENT Condition: Critical Admissions Decision to Admit Reason: Admit from ER (General) Decision to Admit/Date: Jun 15, 2019 Time/Decision to Admit Time: 11:00 Departure-Patient Inst. Referrals: [facility] (PCP/Family) Primary Care Physician DEBRA THOMAS Jun 15, 2019 09:28
[2019-06-15] MEDS ORDERED: ASPIRIN 81 MG CHEW (CHILDREN'S ASA) PO ONE (09:30)
[2019-06-15 09:34] LABS: INR 1.2 (0.8-1.4); PROTHROMBIN TIME PATIENT 15.5 SEC (12.2-14.7)
--- NOTE | 2019-06-15 09:38 | Diagnostic Imaging Report ---
EXAMINATION: Chest radiograph, portable AP view. DATE: 06/15/2019 9:33 AM hours. INDICATION: 74-year-old male, shortness of breath. COMPARISON: September 18, 2018. FINDINGS: Stable overall appearance of the cardiomediastinal silhouette. There is no identified pneumothorax. There is slight blunting of the right lateral costophrenic angle. There are predominantly linear opacities in the lung bases. Overall appearance of the lungs is essentially unchanged. IMPRESSION: 1. Predominantly linear opacities in the lung bases with unchanged appearance since September 2018 most likely reflecting chronic lung changes. 2. No interval acute cardiopulmonary abnormality. Dictated by: Dictated on workstation # [id number]
[2019-06-15 09:41] LABS: ALBUMIN 3.7 GM/DL (3.2-4.5); BILIRUBIN,TOTAL 0.4 MG/DL (0.1-1.0); CALCIUM 9.5 MG/DL (8.5-10.1); CREATININE SERUM 2.52 MG/DL (0.60-1.30)
[2019-06-15] MEDS ORDERED: ACETAMINOPHEN 500 MG TAB (TYLENOL) PO ONE (09:45)
[2019-06-15 10:02] LABS: ABG BASE EXCESS -10.6 MMOL/L (-2.5-2.5); ABG OXYGEN SATURATION 51 % (94-100); ABG PCO2 29 MMHG (35-45); ABG TCO2 14.7 MMOL/L (21.0-31.0)
[2019-06-15 10:07] LABS: ABG PH 7.32 (7.37-7.43); ABG PO2 38 MMHG (79-93)
[2019-06-15 10:08] LABS: ALLENS TEST YES-POS; INSPIRED O2 4 L; PATIENT TEMP 39.1; VENTILATOR NO
[2019-06-15 11:00] LABS: ABG BASE EXCESS -8.5 MMOL/L (-2.5-2.5); ABG OXYGEN SATURATION 97 % (94-100); ABG PCO2 33 MMHG (35-45); ABG PO2 98 MMHG (79-93); ABG TCO2 17.4 MMOL/L (21.0-31.0)
[2019-06-15 11:02] LABS: ABG PH 7.32 (7.37-7.43); ALLENS TEST YES-POS; INSPIRED O2 4 L; PATIENT TEMP 37.4; VENTILATOR NO
[2019-06-15] MEDS ORDERED: methylPREDNISolone 125 MG (Solu-MEDROL) VIAL IVP ONE (12:00)
--- NOTE | 2019-06-15 13:48 | Diagnostic Imaging Report ---
CLINICAL INDICATION: Patient with central line placement. Exam: Portable chest x-ray upright view. Comparisons: Portable chest x-ray dated 06/15/2019. Findings: Stable appearance of the lungs with increased lung markings throughout both lungs with the lung bases affected the most. There is no pneumothorax or pleural effusion. Pulmonary vasculature and cardiac silhouette is within normal limits. Interval placement of right central line with tip in the distal superior vena cava. The remainder of this exam shows no significant interval change compared to the prior study of comparison. IMPRESSION: 1: Interval placement of right central line with tip in the distal superior vena cava. There is no pneumothorax. 2: Stable chronic lung changes. Dictated by: Dictated on workstation # [id number]
[2019-06-15] MEDS ORDERED: ACETAMINOPHEN 500 MG TAB (TYLENOL) PO PRN (15:00)
[2019-06-15] MEDS ORDERED: ANTACID SUSP 30 ML UDC (MYLANTA) PO PRN (15:00)
[2019-06-15] MEDS ORDERED: ONDANSETRON 4 MG/2 ML (SDV) Z0FRAN IV PRN (15:00)
[2019-06-15] MEDS: NS IV 1000 ML 1,000 ML IV SCH ×3 (15:11→23:28)
[2019-06-15] MEDS ORDERED: PANTOPRAZOLE 40 MG (PROTONIX) TAB PO ONE ×2 (15:30→17:46)
[2019-06-15 15:58] LABS: BILIRUBIN,URINE NEGATIVE (NEGATIVE); CLARITY,URINE CLEAR; COLOR,URINE YELLOW; GLUCOSE, URINE (UA) NEGATIVE (NEGATIVE); KETONES,URINE NEGATIVE (NEGATIVE); LEUKOCYTE ESTERASE ,URINE NEGATIVE (NEGATIVE); NITRITE,URINE NEGATIVE (NEGATIVE); PROTEIN,URINE TRACE (NEGATIVE)
[2019-06-15] MEDS ORDERED: POTA20TA15 PO (16:07)
[2019-06-15] MEDS ORDERED: BUDE10.2 IH (16:07)
[2019-06-15 16:09] LABS: BACTERIA,URINE NEGATIVE /HPF
[2019-06-15 16:43] LABS: ABG BASE EXCESS -11.7 MMOL/L (-2.5-2.5); ABG OXYGEN SATURATION 95 % (94-100); ABG PCO2 30 MMHG (35-45); ABG PO2 80 MMHG (79-93); ABG TCO2 14.7 MMOL/L (21.0-31.0)
[2019-06-15 16:46] LABS: ABG PH 7.28 (7.37-7.43); ALLENS TEST YES-POS; INSPIRED O2 40L 25%; PATIENT TEMP 36.6; VENTILATOR NO
[2019-06-15] MEDS: methylPREDNISolone 40 MG/ML (Solu-MEDROL) VIAL IV SCH (17:53)
[2019-06-15] MEDS: RT-ALBUTEROL SULF 2.5 MG/3 ML PRE-MIX VIAL INH SCH ×3 (18:39→22:22)
[2019-06-15] MEDS: CEFEPIME 1,000 MG/SWFI 10 ML IV PUSH IV SCH ×2 (22:26)
[2019-06-16] VITALS (29 sets, daily range): BP systolic 95–151; BP diastolic 53–99
[2019-06-16] MEDS: RT-ALBUTEROL SULF 2.5 MG/3 ML PRE-MIX VIAL INH SCH ×4 (00:12→06:39)
[2019-06-16] MEDS: methylPREDNISolone 40 MG/ML (Solu-MEDROL) VIAL IV SCH ×4 (00:17→23:18)
[2019-06-16 03:22] LABS: BASOPHILS % (AUTO) 0 % (0-10); EOSINOPHILS % (AUTO) 0 % (0-10); HEMATOCRIT 34 % (40-54); LYMPHOCYTES # (AUTO) 0.9 X 10^3 (1.0-4.0); LYMPHOCYTES % (AUTO) 9 % (12-44); MEAN CORPUSCULAR HEMOGLOBIN 29 PG (25-34); MEAN CORPUSCULAR HGB CONC 32 G/DL (32-36); MEAN CORPUSCULAR VOLUME 90 FL (80-99); MEAN PLATELET VOLUME 9.3 FL (7.4-10.4); MONOCYTES # (AUTO) 0.5 X 10^3 (0.0-1.0); MONOCYTES % (AUTO) 5 % (0-12); NEUTROPHILS % (AUTO) 86 % (42-75); PLATELET COUNT 176 10^3/uL (130-400); RED CELL DISTRIBUTION WIDTH 15.3 % (10.0-14.5); WHITE BLOOD COUNT 9.4 10^3/uL (4.3-11.0)
[2019-06-16 03:43] LABS: CALCIUM 7.7 MG/DL (8.5-10.1); CREATININE SERUM 1.71 MG/DL (0.60-1.30); PHOSPHORUS 2.6 MG/DL (2.3-4.7); POTASSIUM 3.4 MMOL/L (3.6-5.0)
--- NOTE | 2019-06-16 06:33 | Pulmonary Consultation ---
History of Present Illness History of Present Illness Date Seen by Provider: Jun 16, 2019 Time Seen by Provider: 06:28 Date of Admission History of Present Illness 74yo with hx of COPD, with persistent tobacco use presented to ED via EMS secondary to worsening SOB, wheezing, weakness, and productive cough over the last 2 days. Pt was found to be hypoxic with Sp02 68% while in ED. No prior episodes like this. Pt was admitted to ICU for close observation. PT is currently requiring high flow oxygen. I am consulted for ICU/pulmonary management. Allergies and Home Medications Allergies Coded Allergies: Penicillins (Verified Allergy, Unknown, 09/09/18) Home Medications Albuterol Sulfate 1 Puff Puff, 2 PUFF IH Q4H PRN for SHORTNESS OF BREATH, (Reported) Aspirin 81 Mg Tablet.dr, 81 MG PO DAILY, (Reported) Atorvastatin Calcium 40 Mg Tablet, 40 MG PO DAILY Prescribed by: KAISER LEDESMA on 11/05/18 1418 Budesonide/Formoterol Fumarate 10.2 Gm Hfa.aer.ad, 2 PUFF IH HS, (Reported) Furosemide 20 Mg Tablet, 20 MG PO DAILY, (Reported) Pantoprazole Sodium 40 Mg Tablet.dr, 40 MG PO DAILY, (Reported) Potassium Chloride 20 Meq Tab.er.prt, 20 MEQ PO DAILY, (Reported) Sucralfate 1 Gm Tablet, 1 GM PO ACHS, (Reported) Past Jlqjyfe-Yillih-Icwtxv Hx Patient Social History Alcohol Use: Denies Use Recreational Drug Use: No Smoking Status: Never a Smoker Type Used: Cigarettes 2nd Hand Smoke Exposure: No Recent Foreign Travel: No Contact w/Someone Who Travel: No Recent Infectious Disease Expo: No Recent Hopitalizations: No Immunizations Up To Date Tetanus Booster (TDap): More than 5yrs PED Vaccines UTD: Yes Date of Pneumonia Vaccine: Nov 06, 2015 Date of Influenza Vaccine: Feb 06, 2019 Seasonal Allergies Seasonal Allergies: No Past Medical History Surgeries: Yes Bowel Surgery Respiratory: No Cardiac: No Neurological: No Reproductive Disorders: No Genitourinary: Yes Prostate Problems Gastrointestinal: No Musculoskeletal: No Endocrine: No HEENT: No Cancer: Yes (stomach or prostate, patient is unsure) Psychosocial: No Integumentary: No Family Medical History No Pertinent Family Hx Review of Systems Time Seen by Provider: 07:43 Constitutional: Fever, Chills, Sweats, Weakness, Malaise Eyes: No: Pain, Vision change, Conjunctivae inflammation, Eyelid inflammation, Other, Redness ENT: Nose congestion; No: Ear pain, Ear discharge, Nose pain, Nose discharge, Mouth pain, Mouth swelling, Throat pain, Throat swelling, Other Respiratory: Cough, Shortness of breath, SOB with excertion, Wheezing, Sputum; No: Hemoptysis Cardiovascular: Paroxysmal Noc. Dyspnea; No: Chest Pain, Palpitations, Orthopnea, Edema, Lt Headedness, Other Gastrointestinal: No: Nausea, Vomiting, Abdominal Pain, Diarrhea, Constipation, Melena, Hematochezia, Other Sepsis Event Evaluation Height, Weight, BMI Height: 5'7.00" Weight: 120lbs. 0.0oz. [id number]; 18.00 BMI Method:Stated Exam Exam Vital Signs Date Time Temp Pulse Resp B/P (MAP) Pulse Ox O2 Delivery O2 Flow Rate FiO2 06/16/19 05:00 93 32 108/62 (77) 92 Vapotherm 40.00 25.00 06/16/19 04:09 92 Vapotherm 40.00 25 06/16/19 04:00 Vapotherm 40.00 25 06/16/19 04:00 83 32 102/61 (75) 92 Vapotherm 40.00 25.00 06/16/19 03:00 76 28 109/73 (85) 93 Vapotherm 40.00 25.00 06/16/19 02:41 92 Vapotherm 40.00 25 06/16/19 02:00 82 24 101/60 (74) 94 Vapotherm 40.00 25.00 06/16/19 01:00 82 28 95/58 (70) 92 Vapotherm 40.00 25.00 06/16/19 01:00 82 06/16/19 00:17 36.4 06/16/19 00:12 92 Vapotherm 25 06/16/19 00:00 Vapotherm 40.00 25 06/16/19 00:00 89 20 110/54 (72) 91 Vapotherm 40.00 25.00 06/15/19 23:00 85 32 90/59 (69) 94 Vapotherm 40.00 25.00 06/15/19 22:22 95 Vapotherm 25 06/15/19 22:00 74 30 102/58 (73) 95 Vapotherm 40.00 25.00 06/15/19 21:00 71 30 102/63 (76) 95 Vapotherm 40.00 25.00 06/15/19 20:00 Vapotherm 40.00 25 06/15/19 20:00 36.6 06/15/19 20:00 63 23 108/73 (85) 96 Vapotherm 40.00 25.00 06/15/19 19:00 65 06/15/19 19:00 65 28 102/60 (74) 95 Vapotherm 40.00 25.00 06/15/19 18:39 96 Vapotherm 25 06/15/19 18:00 71 31 98/61 (73) 96 Vapotherm 40.00 25.00 06/15/19 17:00 75 28 104/76 (85) 97 Vapotherm 40.00 25.00 06/15/19 16:00 96 Vapotherm 40.00 06/15/19 16:00 36.6 06/15/19 16:00 67 27 95/64 (74) 96 Vapotherm 40.00 25.00 06/15/19 15:00 59 29 99/60 (73) 96 Vapotherm 40.00 25.00 06/15/19 14:50 Vapotherm 40.00 25 06/15/19 14:30 66 22 101/61 (74) 98 Vapotherm 40.00 25.00 06/15/19 14:27 72 06/15/19 14:15 36.9 66 18 96/60 (81) 98 Vapotherm 40.00 06/15/19 13:00 39.1 122 97 30 06/15/19 10:59 97 Vapotherm 40.00 30 06/15/19 09:47 39.1 06/15/19 09:37 92 Nasal Cannula 4.00 06/15/19 09:25 94 Nasal Cannula 4.00 06/15/19 09:07 98 Non Rebreather 12.00 06/15/19 09:07 39.1 125 25 101/71 (81) 98 High Flow N/C 12.00 I & O 06/16/19 07:00 Intake Total 5692 ml Output Total 500 ml Balance 5192 ml Height & Weight Height: 5'7.00" Weight: 120lbs. 0.0oz. 54.969107oi; 18.00 BMI Method:Stated General Appearance: Anxious, Chronically ill, Mild Distress, Thin HEENT: PERRL/EOMI, Pharynx Normal Neck: Full Range of Motion, Non Tender, Supple Respiratory: Chest Non Tender, Accessory Muscle Use (mild), Decreased Breath Sounds, Respiratory Distress (mild), Wheezing Cardiovascular: Regular Rate, Rhythm (99), Normal Peripheral Pulses Capillary Refill: Less Than 3 Seconds Peripheral Pulses: 2+ Radial Pulses (R), 2+ Radial Pulses (L) Gastrointestinal: normal bowel sounds, non tender, soft Extremity: Normal Capillary Refill, Non Tender, No Pedal Edema Neurologic/Psychiatric: Alert, Oriented x3 Skin: Normal Color, Warm/Dry Lymphatic: No Adenopathy Results Lab Laboratory Tests 06/15/19 09:10 06/16/19 03:17 Assessment/Plan Assessment/Plan Acute respiratory distress -Currently requiring high flow oxygen -Repeat ABG at 11 Severe sepsis with pneumonia -Continue Vanco and cefepime -Wasserman cultures pending Metabolic lactic acidosis -Give 2 amps of bicarb and repeat ABG at 11. -IVF -Monitor Pneumonia COPD -Duonebs -Oxygen -Solumedrol Anemia -Monitor Hypokalemia -replace AKF -IVF -Monitor ELINA ALVAREZ DO Jun 16, 2019 06:33
[2019-06-16] MEDS ORDERED: ENOXAPARIN 40 MG/0.4 ML (LOVENOX) SYR SC SCH ×2 (06:45→15:15)
[2019-06-16] MEDS ORDERED: SODIUM BICARB 8.4% 50 MEQ/50 ML VIAL IV ONE (06:45)
[2019-06-16] MEDS ORDERED: RT-ALBUTEROL SULF 2.5 MG/3 ML PRE-MIX VIAL INH PRN (07:00)
[2019-06-16] MEDS ORDERED: SODIUM BICARB 8.4% 50 MEQ/50 ML VIAL ONE (07:14)
--- NOTE | 2019-06-16 07:17 | Diagnostic Imaging Report ---
INDICATION: Shortness of breath, sepsis. COMPARISON: 06/15/2019 FINDINGS: Single view of the chest demonstrates cardiac enlargement with chronic-appearing interstitial changes bilaterally. No acute infiltrate is seen. There is no pneumothorax or large effusion. A right IJ catheter is stable. IMPRESSION: Unchanged aeration lungs. Dictated by: Dictated on workstation # [id number]
[2019-06-16] MEDS: NS IV 1000 ML 1,000 ML IV SCH ×3 (07:21→23:16)
[2019-06-16] MEDS ORDERED: ENOXAPARIN 30 MG/0.3 ML (LOVENOX) SYR SC SCH (07:30)
[2019-06-16] MEDS ORDERED: KCL 20 MEQ TAB (K-DUR) PO NR (08:00)
[2019-06-16] MEDS ORDERED: POTASSIUM PHOSPHATE INJ 15 MM in NS (IVPB) 250 ML IV NR (08:00)
[2019-06-16] MEDS: PANTOPRAZOLE 40 MG (PROTONIX) TAB PO SCH (08:05)
--- NOTE | 2019-06-16 09:35 | History & Physical ---
HPI History of Present Illness: Dizzy, tired for a week or two per son, 2 days per patient, felt feverish. Son also states he was very shaky. They went to [place] to visit for nephew's birthday and by the time they got back he was much worse. His son states yesterday morning he heard him fall in the bathroom, and patient states he did hit his head and then son called ambulance. Source: patient, family Exam Limitations: clinical condition Date seen by provider: Jun 16, 2019 Time Seen by Provider: 09:32 Attending Physician Ilia Gross MD PCP Center/[facility] Consult Date of Admission Jun 15, 2019 at 11:45 Home Medications Home Medications Reviewed patient Home Medication Reconciliation performed by pharmacy medication reconciliations global position system technician and/or nursing. Patients Allergies have been reviewed. Allergies Coded Allergies: Penicillins (Verified Allergy, Unknown, 09/09/18) VHK-Ekafji-Pgqqhh Hx Patient Social History Alcohol Use: Denies Use Recreational Drug Use: No Smoking Status: Current Everyday Smoker Type Used: Cigarettes 2nd Hand Smoke Exposure: No Recent Foreign Travel: No Contact w/other who traveled: No Recent Hopitalizations: No Recent Infectious Disease Expo: No Immunizations Up To Date Tetanus Booster (TDap): More than 5yrs Date of Pneumonia Vaccine: Nov 06, 2015 Date of Influenza Vaccine: Feb 06, 2019 Past Medical History PMHx: COPD Prostate cancer s/p surgical treatment HLD PSurgHx: Prostate Family Medical History Significant Family History: No Pertinent Family Hx Review of Systems ([facility]) Constitutional: fever, malaise, weakness EENTM: No vision loss Respiratory: cough, short of breath Cardiovascular: No chest pain Gastrointestinal: No abdominal pain; constipation; No diarrhea, No nausea, No vomiting Genitourinary: No dysuria Skin: No rash Reviewed Test Results Reviewed Test Results Lab Laboratory Tests Test 06/15/19 09:10 06/15/19 09:55 06/15/19 10:54 06/15/19 11:08 Range/Units White Blood Count 13.9 H 4.3-11.0 10^3/uL Red Blood Count 4.91 4.35-5.85 10^6/uL Hemoglobin 14.3 13.3-17.7 G/DL Hematocrit 43 40-54 % Mean Corpuscular Volume 88 80-99 FL Mean Corpuscular Hemoglobin 29 25-34 PG Mean Corpuscular Hemoglobin Concent 33 32-36 G/DL Red Cell Distribution Width 15.7 H 10.0-14.5 % Platelet Count 266 130-400 10^3/uL Mean Platelet Volume 9.6 7.4-10.4 FL Neutrophils (%) (Auto) 69 42-75 % Lymphocytes (%) (Auto) 23 12-44 % Monocytes (%) (Auto) 8 0-12 % Eosinophils (%) (Auto) 0 0-10 % Basophils (%) (Auto) 0 0-10 % Neutrophils # (Auto) 9.6 H 1.8-7.8 X 10^3 Lymphocytes # (Auto) 3.1 1.0-4.0 X 10^3 Monocytes # (Auto) 1.2 H 0.0-1.0 X 10^3 Eosinophils # (Auto) 0.0 0.0-0.3 10^3/uL Basophils # (Auto) 0.1 0.0-0.1 10^3/uL Prothrombin Time 15.5 H 12.2-14.7 SEC INR Comment 1.2 0.8-1.4 Activated Partial Thromboplast Time 37 H 24-35 SEC Sodium Level 137 135-145 MMOL/L Potassium Level 5.0 3.6-5.0 MMOL/L Chloride Level 107 98-107 MMOL/L Carbon Dioxide Level 11 L 21-32 MMOL/L Anion Gap 19 H 5-14 MMOL/L Blood Urea Nitrogen 27 H 7-18 MG/DL Creatinine 2.52 H 0.60-1.30 MG/DL Estimat Glomerular Filtration Rate 25 BUN/Creatinine Ratio 11 Glucose Level 130 H 70-105 MG/DL Lactic Acid Level 5.99 *H 1.96 0.50-2.00 MMOL/L Calcium Level 9.5 8.5-10.1 MG/DL Corrected Calcium 9.7 8.5-10.1 MG/DL Total Bilirubin 0.4 0.1-1.0 MG/DL Aspartate Amino Transf (AST/SGOT) 32 5-34 U/L Alanine Aminotransferase (ALT/SGPT) 15 0-55 U/L Alkaline Phosphatase 67 40-136 U/L Troponin I 0.093 H <0.028 NG/ML Total Protein 7.0 6.4-8.2 GM/DL Albumin 3.7 3.2-4.5 GM/DL Blood Gas Puncture Site LT RAD RT RAD Blood Gas Patient Temperature 39.1 37.4 Arterial Blood pH 7.32 *L 7.32 *L 7.37-7.43 Arterial Blood Partial Pressure CO2 29 L 33 L 35-45 MMHG Arterial Blood Partial Pressure O2 38 *L 98 H 79-93 MMHG Arterial Blood HCO3 14 *L 16 *L 23-27 MMOL/L Arterial Blood Total CO2 14.7 L 17.4 L 21.0-31.0 MMOL/L Arterial Blood Oxygen Saturation 51 L 97 94-100 % Arterial Blood Base Excess -10.6 L -8.5 L -2.5-2.5 MMOL/L Julian Test YES-POS YES-POS Blood Gas Ventilator Setting NO NO Blood Gas Inspired Oxygen 4 L 4 L Test 06/15/19 15:30 06/15/19 16:35 06/16/19 03:17 06/16/19 11:15 Range/Units Urine Color YELLOW Urine Clarity CLEAR Urine pH 5.0 5-9 Urine Specific Chester 1.020 1.016-1.022 Urine Protein TRACE H NEGATIVE Urine Glucose (UA) NEGATIVE NEGATIVE Urine Ketones NEGATIVE NEGATIVE Urine Nitrite NEGATIVE NEGATIVE Urine Bilirubin NEGATIVE NEGATIVE Urine Urobilinogen 0.2 < = 1.0 MG/DL Urine Leukocyte Esterase NEGATIVE NEGATIVE Urine RBC (Auto) 2+ H NEGATIVE Urine RBC 10-25 H /HPF Urine WBC NONE /HPF Urine Squamous Epithelial Cells 2-5 /HPF Urine Crystals NONE /LPF Urine Bacteria NEGATIVE /HPF Urine Casts NONE /LPF Urine Mucus NEGATIVE /LPF Urine Culture Indicated CULTURE PENDING Blood Gas Puncture Site LT RAD LR Blood Gas Patient Temperature 36.6 37.1 Arterial Blood pH 7.28 *L 7.32 *L 7.37-7.43 Arterial Blood Partial Pressure CO2 30 L 32 L 35-45 MMHG Arterial Blood Partial Pressure O2 80 70 L 79-93 MMHG Arterial Blood HCO3 14 *L 16 *L 23-27 MMOL/L Arterial Blood Total CO2 14.7 L 17.0 L 21.0-31.0 MMOL/L Arterial Blood Oxygen Saturation 95 93 L 94-100 % Arterial Blood Base Excess -11.7 L -9.0 L -2.5-2.5 MMOL/L Julian Test YES-POS YES-POS Blood Gas Ventilator Setting NO NO Blood Gas Inspired Oxygen 40L 25% 25% White Blood Count 9.4 4.3-11.0 10^3/uL Red Blood Count 3.80 L 4.35-5.85 10^6/uL Hemoglobin 11.0 #L 13.3-17.7 G/DL Hematocrit 34 L 40-54 % Mean Corpuscular Volume 90 80-99 FL Mean Corpuscular Hemoglobin 29 25-34 PG Mean Corpuscular Hemoglobin Concent 32 32-36 G/DL Red Cell Distribution Width 15.3 H 10.0-14.5 % Platelet Count 176 130-400 10^3/uL Mean Platelet Volume 9.3 7.4-10.4 FL Neutrophils (%) (Auto) 86 H 42-75 % Lymphocytes (%) (Auto) 9 L 12-44 % Monocytes (%) (Auto) 5 0-12 % Eosinophils (%) (Auto) 0 0-10 % Basophils (%) (Auto) 0 0-10 % Neutrophils # (Auto) 8.0 H 1.8-7.8 X 10^3 Lymphocytes # (Auto) 0.9 L 1.0-4.0 X 10^3 Monocytes # (Auto) 0.5 0.0-1.0 X 10^3 Eosinophils # (Auto) 0.0 0.0-0.3 10^3/uL Basophils # (Auto) 0.0 0.0-0.1 10^3/uL Sodium Level 140 135-145 MMOL/L Potassium Level 3.4 L 3.6-5.0 MMOL/L Chloride Level 118 #H 98-107 MMOL/L Carbon Dioxide Level 13 L 21-32 MMOL/L Anion Gap 9 5-14 MMOL/L Blood Urea Nitrogen 29 H 7-18 MG/DL Creatinine 1.71 H 0.60-1.30 MG/DL Estimat Glomerular Filtration Rate 39 BUN/Creatinine Ratio 17 Glucose Level 167 H 70-105 MG/DL Calcium Level 7.7 L 8.5-10.1 MG/DL Phosphorus Level 2.6 2.3-4.7 MG/DL Magnesium Level 2.0 1.6-2.4 MG/DL Physical Exam-(CHC) Physical Exam Vital Signs VS - Last 72 Hours, by Label 06/15/19 06/15/19 06/15/19 06/15/19 09:07 09:07 09:25 09:37 Temp 39.1 Pulse 125 Resp 25 B/P (MAP) 101/71 (81) Pulse Ox 98 98 94 92 O2 Delivery High Flow N/C Non Rebreather Nasal Cannula Nasal Cannula O2 Flow Rate 12.00 12.00 4.00 4.00 06/15/19 06/15/19 06/15/19 06/15/19 09:47 10:59 13:00 14:15 Temp 39.1 39.1 36.9 Pulse 122 66 Resp 18 B/P (MAP) 96/60 (81) Pulse Ox 97 97 98 O2 Delivery Vapotherm Vapotherm O2 Flow Rate 40.00 40.00 FiO2 30 30 06/15/19 06/15/19 06/15/19 06/15/19 14:27 14:30 14:50 15:00 Pulse 72 66 59 Resp 22 29 B/P (MAP) 101/61 (74) 99/60 (73) Pulse Ox 98 96 O2 Delivery Vapotherm Vapotherm Vapotherm O2 Flow Rate 40.00 40.00 40.00 25.00 25.00 FiO2 25 06/15/19 06/15/19 06/15/19 06/15/19 16:00 16:00 16:00 17:00 Temp 36.6 Pulse 67 75 Resp 27 28 B/P (MAP) 95/64 (74) 104/76 (85) Pulse Ox 96 96 97 O2 Delivery Vapotherm Vapotherm Vapotherm O2 Flow Rate 40.00 40.00 40.00 25.00 25.00 06/15/19 06/15/19 06/15/19 06/15/19 18:00 18:39 19:00 19:00 Pulse 71 65 65 Resp 31 28 B/P (MAP) 98/61 (73) 102/60 (74) Pulse Ox 96 96 95 O2 Delivery Vapotherm Vapotherm Vapotherm O2 Flow Rate 40.00 40.00 25.00 25.00 FiO2 25 06/15/19 06/15/19 06/15/19 06/15/19 20:00 20:00 20:00 21:00 Temp 36.6 Pulse 63 71 Resp 23 30 B/P (MAP) 108/73 (85) 102/63 (76) Pulse Ox 96 95 O2 Delivery Vapotherm Vapotherm Vapotherm O2 Flow Rate 40.00 40.00 40.00 25.00 25.00 FiO2 25 06/15/19 06/15/19 06/15/19 06/16/19 22:00 22:22 23:00 00:00 Pulse 74 85 89 Resp 30 32 20 B/P (MAP) 102/58 (73) 90/59 (69) 110/54 (72) Pulse Ox 95 95 94 91 O2 Delivery Vapotherm Vapotherm Vapotherm Vapotherm O2 Flow Rate 40.00 40.00 40.00 25.00 25.00 25.00 FiO2 25 06/16/19 06/16/19 06/16/19 06/16/19 00:00 00:12 00:17 01:00 Temp 36.4 Pulse 82 Pulse Ox 92 O2 Delivery Vapotherm Vapotherm O2 Flow Rate 40.00 FiO2 25 25 06/16/19 06/16/19 06/16/19 06/16/19 01:00 02:00 02:41 03:00 Pulse 82 82 76 Resp 28 24 28 B/P (MAP) 95/58 (70) 101/60 (74) 109/73 (85) Pulse Ox 92 94 92 93 O2 Delivery Vapotherm Vapotherm Vapotherm Vapotherm O2 Flow Rate 40.00 40.00 40.00 40.00 25.00 25.00 25.00 FiO2 25 06/16/19 06/16/19 06/16/19 06/16/19 04:00 04:00 04:09 05:00 Pulse 83 93 Resp 32 32 B/P (MAP) 102/61 (75) 108/62 (77) Pulse Ox 92 92 92 O2 Delivery Vapotherm Vapotherm Vapotherm Vapotherm O2 Flow Rate 40.00 40.00 40.00 40.00 25.00 25.00 FiO2 25 25 06/16/19 06/16/19 06/16/19 06/16/19 06:00 06:42 06:54 07:00 Temp 36.4 Pulse 85 93 86 Resp 30 29 B/P (MAP) 102/57 (72) 102/53 (69) Pulse Ox 91 92 92 91 O2 Delivery Vapotherm Vapotherm Vapotherm O2 Flow Rate 40.00 40.00 40.00 25.00 25.00 FiO2 25 2/07/3106/16/19 06/16/19 06/16/19 07:00 07:53 08:00 08:44 Temp 36.6 Pulse 96 101 Resp 28 B/P (MAP) 113/69 (84) Pulse Ox 91 O2 Delivery Vapotherm Vapotherm O2 Flow Rate 40.00 40.00 25.00 FiO2 25 06/16/19 06/16/19 06/16/19 06/16/19 09:00 10:00 11:00 11:06 Temp 37.1 Pulse 100 140 100 Resp 35 27 B/P (MAP) 126/64 (84) 151/89 (109) 110/72 (85) Pulse Ox 93 91 92 O2 Delivery Vapotherm Vapotherm Vapotherm O2 Flow Rate 35.00 35.00 35.00 25.00 25.00 25.00 06/16/19 06/16/19 06/16/19 06/16/19 11:23 11:40 12:00 12:30 Temp 37.0 Pulse 101 Resp 31 B/P (MAP) 116/77 (90) Pulse Ox 93 93 O2 Delivery Vapotherm Vapotherm Vapotherm O2 Flow Rate 40.00 40.00 35.00 25.00 FiO2 25 25 06/16/19 06/16/19 06/16/19 06/16/19 12:57 13:00 13:23 14:00 Pulse 111 110 128 Resp 35 38 B/P (MAP) 134/78 (96) 137/83 (101) Pulse Ox 93 93 92 O2 Delivery Vapotherm Vapotherm Vapotherm O2 Flow Rate 35.00 40.00 35.00 25.00 25.00 FiO2 25 06/16/19 14:10 Temp 37.0 Pulse 128 Pulse Ox 92 FiO2 25 Capillary Refill : Less Than 3 Seconds General Appearance: mild distress, thin Respiratory: rhonchi Cardiovascular: regular rate, rhythm, no murmur Gastrointestinal: normal bowel sounds, non tender Extremities: no pedal edema Neurologic/Psychiatric: normal mood/affect Assessment/Plan Assessment/Plan Admission Status: Inpatient Order (span 2 midnights) Reason for Inpatient Admission: Severe sepsis with underlying COPD (1) Severe sepsis Status: Acute Assessment & Plan: Secondary to pneumonia, initially with leukocytosis which is resolved today as well as lactic acidosis which is resolved. (2) Pneumonia Status: Acute Assessment & Plan: With severe sepsis, started on cefepime and vancomycin Qualifiers: Qualified Codes: J18.9 - Pneumonia, unspecified organism (3) Acute kidney injury (nontraumatic) Status: Acute Assessment & Plan: Improved this am, creatinine remains elevated, continue NS at 150 mls/hr (4) COPD with acute lower respiratory infection Status: Acute Assessment & Plan: Solumedrol, Dr. Odonnell consulted, appreciate recommendations. (5) Elevated troponin I level Status: Acute Assessment & Plan: Suspect related to pneumonia and COPD exacerbation. (6) Metabolic acidosis Status: Acute Assessment & Plan: Secondary to renal insufficiency, improving. Bicarb given per Dr. Odonnell (7) DVT prophylaxis Status: Acute Assessment & Plan: Enoxaparin Clinical Quality Measures DVT/VTE Risk/Contraindication: Risk Factor Score Per Nursin RFS Level Per Nursing on Admit: 4+=Very High ILIA GROSS MD Jun 16, 2019 09:35
[2019-06-16] MEDS: CEFEPIME 1,000 MG/SWFI 10 ML IV PUSH IV SCH ×4 (09:43→17:25)
--- NOTE | 2019-06-16 09:45 | NUR ---
PT ASSISTED UP TO TOILET TO HAVE BM, SATS DECREASE TO 78-80%, HR INCREASED TO 130'S-140'S, ALL WHILE STILL ON VAPOTHERM AT 40L 25%. DR ALVAREZ INFORMED. NO NEW ORDERS RECEIVED.
[2019-06-16] MEDS ORDERED: VANCOMYCIN 1 GM/NS 250 ML IVPB IV SCH ×2 (10:00)
--- NOTE | 2019-06-16 11:05 | NUR ---
Pastoral Care Visit.
[2019-06-16 11:20] LABS: ABG OXYGEN SATURATION 93 % (94-100); ABG PCO2 32 MMHG (35-45); ABG PO2 70 MMHG (79-93)
[2019-06-16 11:23] LABS: ABG PH 7.32 (7.37-7.43); ALLENS TEST YES-POS; INSPIRED O2 25%; PATIENT TEMP 37.1; VENTILATOR NO
[2019-06-16] MEDS: RT-ALBUTEROL/IPRATROPIUM 3 ML (DUONEB) VIAL INH SCH ×3 (11:38→20:28)
--- NOTE | 2019-06-16 14:13 | NUR ---
RD ASSESSMENT PMHx: COPD; CA(prostate) PT INTERACTION: Pt was awake and pleasant during consult for MST score. Pt states current appetite is poor, and has been for some time. Note PO intake of 100% for dinner /2; and "bites" of breakfast on 06/16, per chart review. Pt states following a regular diet at home, and has no issues with chewing/swallowing food. Pt states no recent issues with n/v/c/d at this time, and that his last BM was 06/16. Note pt not currently on bowel regimen, per chart review. Pt states no recent wt changes. Note recent 14# wt gain x7mon, per chart review. Given wt hx and PO intake, pt does not meet criteria for malnutrition, per ASPEN guidelines. ABNORMAL NUTRITION-RELATED LAB VALUES LOW: K 3.4; Ca 7.7 HIGH: Cl 118; BUN 29; cr 1.71; glu 167 Est. kcal needs: 4680-4789 kcal | 25-30 kcal/kg Est. Pro needs: 61-73 g Pro | 1.0-1.2 g Pro/kg PES STATEMENT: Inadequate oral intake (NI-2.1) related to loss of appetite as evidenced by pt interview | avg PO intake 50% x2meal INTERVENTION: Continue with current diet order of Regular diet. Continue with current supplementation order of Ensure Enlive (vary) with meals TID, for increased kcal intake. Provides 350 kcal and 13 g Pro per serving. Will continue to follow and reassess as pt needs and status change. MONITOR/EVALUATE: PO Intake; Plan of Care; Hydration Status; Weight Status; Lab Values Alvaro Parham, MS, RD, LD
--- NOTE | 2019-06-16 15:28 | NUR ---
PT HAVING SOB, LABORED BREATHING, HR IN 120'S-130'S. DR ALVAREZ INFORMED, NEW ORDERS RECEIVED TO INCREASE VAPOTHERM TO 40% 45% AND BIPAP 15/5 PRN.
[2019-06-16] MEDS: SUCRALFATE 1 GM (CARAFATE) TAB PO SCH ×2 (15:49→20:21)
[2019-06-17] VITALS (15 sets, daily range): BP systolic 99–172; BP diastolic 52–107
[2019-06-17] MEDS: RT-ALBUTEROL/IPRATROPIUM 3 ML (DUONEB) VIAL INH SCH ×6 (02:04→21:37)
[2019-06-17] MEDS: CEFEPIME 1,000 MG/SWFI 10 ML IV PUSH IV SCH ×6 (02:05→17:14)
[2019-06-17 03:23] LABS: BASOPHILS % (AUTO) 0 % (0-10); EOSINOPHILS % (AUTO) 0 % (0-10); HEMATOCRIT 33 % (40-54); HEMOGLOBIN 10.8 G/DL (13.3-17.7); LYMPHOCYTES # (AUTO) 0.8 X 10^3 (1.0-4.0); LYMPHOCYTES % (AUTO) 7 % (12-44); MEAN CORPUSCULAR HEMOGLOBIN 29 PG (25-34); MEAN CORPUSCULAR HGB CONC 32 G/DL (32-36); MEAN CORPUSCULAR VOLUME 89 FL (80-99); MEAN PLATELET VOLUME 9.4 FL (7.4-10.4); MONOCYTES # (AUTO) 0.5 X 10^3 (0.0-1.0); MONOCYTES % (AUTO) 5 % (0-12); NEUTROPHILS # (AUTO) 9.3 X 10^3 (1.8-7.8); NEUTROPHILS % (AUTO) 88 % (42-75); PLATELET COUNT 185 10^3/uL (130-400); RED CELL DISTRIBUTION WIDTH 16.1 % (10.0-14.5); WHITE BLOOD COUNT 10.6 10^3/uL (4.3-11.0)
[2019-06-17 03:42] LABS: CALCIUM 7.9 MG/DL (8.5-10.1); CREATININE SERUM 1.29 MG/DL (0.60-1.30); MAGNESIUM 1.7 MG/DL (1.6-2.4); PHOSPHORUS 1.9 MG/DL (2.3-4.7); POTASSIUM 4.1 MMOL/L (3.6-5.0)
[2019-06-17] MEDS ORDERED: MAGNESIUM 1 GM/100 ML IVPB 200 ML IV ONE (04:13)
[2019-06-17] MEDS ORDERED: LACTATED RINGERS 1,000 ML IV ONE (04:13)
[2019-06-17] MEDS ORDERED: SODIUM BICARB 8.4% 50 MEQ/50 ML VIAL IV ONE (04:15)
--- NOTE | 2019-06-17 04:17 | Pulmonary Progress Note ---
Subjective Time Seen by a Provider: 04:17 Subjective/Events-last exam Complains of SOB. Sepsis Event Evaluation Height, Weight, BMI Height: 5'7.00" Weight: 120lbs. 0.0oz. 54.811970nu; 18.00 BMI Method:Stated Focused Exam Lactate Level 06/15/19 09:10: Lactic Acid Level 5.99*H 06/15/19 11:08: Lactic Acid Level 1.96 Time of Focused Exam: 11:44 Exam Exam Vital Signs Date Time Temp Pulse Resp B/P (MAP) Pulse Ox O2 Delivery O2 Flow Rate FiO2 06/17/19 03:50 37.0 Vapotherm 40.00 30.00 06/17/19 03:50 97 Vapotherm 40.00 30 06/17/19 02:08 Vapotherm 40.00 30.00 06/17/19 02:04 98 Vapotherm 40.00 35 06/17/19 01:00 106 06/17/19 00:36 100 Vapotherm 35.00 35.00 06/17/19 00:00 94 NIV Bilevel 30 06/17/19 00:00 68 23 119/66 (83) 98 NIV Bilevel 30.00 06/16/19 23:10 37.1 NIV Bilevel 30.00 06/16/19 23:00 69 13 113/65 (81) 97 NIV Bilevel 30.00 06/16/19 22:00 91 20 118/80 (93) 94 NIV Bilevel 30.00 06/16/19 21:00 82 31 111/66 (81) 98 NIV Bilevel 30.00 06/16/19 20:50 86 28 95 NIV Bilevel 30.00 06/16/19 20:29 86 33 100 35.00 06/16/19 20:00 93 32 111/67 (82) 99 NIV Bilevel 35.00 06/16/19 20:00 95 NIV Bilevel 35 06/16/19 19:34 36.6 NIV Bilevel 40.00 35.00 06/16/19 19:01 118 30 98 35.00 06/16/19 19:00 98 34 120/78 (92) 98 NIV Bilevel 35.00 06/16/19 19:00 101 06/16/19 19:00 NIV Bilevel 35.00 06/16/19 18:00 110 40 125/75 (92) 99 Vapotherm 40.00 45.00 06/16/19 17:00 106 18 121/67 (85) 97 Vapotherm 40.00 45.00 06/16/19 16:15 112 34 97 35.00 06/16/19 16:00 109 26 121/82 (95) 98 Vapotherm 40.00 45.00 06/16/19 15:55 Vapotherm 40.00 45 06/16/19 15:50 37.2 06/16/19 15:26 Vapotherm 40.00 45.00 06/16/19 15:00 122 35 141/99 (113) 93 Vapotherm 40.00 25.00 06/16/19 14:10 37.0 128 92 25 06/16/19 14:00 128 38 137/83 (101) 92 Vapotherm 40.00 25.00 06/16/19 13:23 93 Vapotherm 40.00 25 06/16/19 13:00 110 35 134/78 (96) 93 Vapotherm 40.00 25.00 06/16/19 12:57 111 06/16/19 12:30 37.0 06/16/19 12:00 101 31 116/77 (90) 93 Vapotherm 35.00 25.00 06/16/19 11:40 93 Vapotherm 40.00 25 06/16/19 11:23 Vapotherm 40.00 25 06/16/19 11:06 37.1 06/16/19 11:00 100 110/72 (85) 92 Vapotherm 35.00 25.00 06/16/19 10:00 140 27 151/89 (109) 91 Vapotherm 35.00 25.00 06/16/19 09:00 100 35 126/64 (84) 93 Vapotherm 35.00 25.00 06/16/19 08:44 Vapotherm 40.00 25 06/16/19 08:00 101 28 113/69 (84) 91 Vapotherm 40.00 25.00 06/16/19 07:53 36.6 06/16/19 07:00 96 06/16/19 07:00 86 29 102/53 (69) 91 Vapotherm 40.00 25.00 06/16/19 06:54 36.4 93 92 06/16/19 06:42 92 Vapotherm 40.00 25 06/16/19 06:00 85 30 102/57 (72) 91 Vapotherm 40.00 25.00 06/16/19 05:00 93 32 108/62 (77) 92 Vapotherm 40.00 25.00 I & O 06/17/19 07:00 Intake Total 4155 ml Output Total 825 ml Balance 3330 ml Height & Weight Height: 5'7.00" Weight: 120lbs. 0.0oz. 54.468257dl; 18.00 BMI Method:Stated General Appearance: Anxious, Chronically ill, Mild Distress, Thin HEENT: PERRL/EOMI, Pharynx Normal Neck: Full Range of Motion, Non Tender, Supple Respiratory: Chest Non Tender, Accessory Muscle Use (mild), Decreased Breath Sounds, Respiratory Distress (mild), Wheezing Cardiovascular: Regular Rate, Rhythm (99), Normal Peripheral Pulses Capillary Refill: Less Than 3 Seconds Peripheral Pulses: 2+ Radial Pulses (R), 2+ Radial Pulses (L) Gastrointestinal: normal bowel sounds, non tender Extremity: Normal Capillary Refill, Non Tender, No Pedal Edema Neurologic/Psychiatric: Alert, Oriented x3 Skin: Normal Color, Warm/Dry Lymphatic: No Adenopathy Results Lab Laboratory Tests 06/15/19 09:10 06/16/19 03:17 06/17/19 03:18 Assessment/Plan Assessment/Plan Acute respiratory distress -Currently requiring high flow oxygen -Repeat ABG at 11 Severe sepsis with pneumonia -D/C Vanco and Continue cefepime -Wasserman cultures pending Metabolic lactic acidosis -Give 2 amps of bicarb and repeat ABG at 11. -IVF -Monitor Pneumonia COPD -Duonebs -Oxygen -Solumedrol Anemia -Monitor Hypokalemia -replace AKF -IVF -Monitor ELINA ALVAREZ DO Jun 17, 2019 04:17
[2019-06-17] MEDS ORDERED: SODIUM BICARB 8.4% 50 MEQ/50 ML VIAL ONE (04:20)
[2019-06-17] MEDS: LACTATED RINGERS 1,000 ML IV SCH ×2 (04:20→17:14)
[2019-06-17] MEDS: MAGNESIUM 1 GM/100 ML IVPB 100 ML IV SCH ×2 (04:21→05:29)
[2019-06-17 04:26] LABS: LYMPHOCYTES % (MANUAL) 5 %; MONOCYTES % (MANUAL) 1 %; NEUTROPHILS % (MANUAL) 93 %; REACTIVE LYMPHOCYTES 1 %
[2019-06-17] MEDS: methylPREDNISolone 40 MG/ML (Solu-MEDROL) VIAL IV SCH ×3 (05:29→17:13)
[2019-06-17] MEDS: SUCRALFATE 1 GM (CARAFATE) TAB PO SCH ×4 (05:29→20:45)
[2019-06-17] MEDS ORDERED: KCL 20 MEQ TAB (K-DUR) PO SCH (06:00)
[2019-06-17] MEDS ORDERED: POTASSIUM CL 10MEQ/50ML IVPB 50 ML IV SCH (06:00)
[2019-06-17] MEDS ORDERED: MAGNESIUM 1 GM/100 ML IVPB 100 ML IV SCH (06:00)
--- NOTE | 2019-06-17 07:11 | Diagnostic Imaging Report ---
INDICATION: Dyspnea. TECHNIQUE: Single view chest 3:55 AM. CORRELATION STUDY: 06/16/2019 FINDINGS: Right IJ line unchanged tip over the SVC. Heart size and mediastinum are generally stable. Prominent interstitial markings throughout both lung hinojosa likely chronic. Very questionable slight nodularity at the right lung apex. Small effusions. No definitive focal consolidating infiltrate. IMPRESSION: 1. Likely largely chronic changes of the lung parenchyma. No definitive superimposed infiltrate. 2. There is, however questionable nodule about the right lung apex. Short-term follow-up two-view chest imaging is recommended. Dictated by: Dictated on workstation # [id number]
[2019-06-17] MEDS ORDERED: ENOXAPARIN 30 MG/0.3 ML (LOVENOX) SYR SC SCH (07:30)
[2019-06-17] MEDS: ASPIRIN E.C. 81 MG (ECOTRIN) TAB PO SCH (07:51)
[2019-06-17] MEDS: PANTOPRAZOLE 40 MG (PROTONIX) TAB PO SCH (07:51)
[2019-06-17] MEDS ORDERED: RT-ALBUTEROL SULF 2.5 MG/3 ML PRE-MIX VIAL IH PRN (08:15)
[2019-06-17] MEDS: FUROSEMIDE 20 MG (LASIX) TAB PO SCH (08:44)
[2019-06-17] MEDS: KCL 20 MEQ TAB (K-DUR) PO SCH (08:44)
[2019-06-17] MEDS ORDERED: PANTOPRAZOLE 40 MG (PROTONIX) TAB PO SCH (09:00)
[2019-06-17] MEDS ORDERED: SODIUM PHOSPHATE INJ 15 MM in D5W 100 ML IVPB 100 ML IV ONE (09:00)
--- NOTE | 2019-06-17 09:35 | NUR ---
0820 PT TRANSFERRED TO ROOM 405 ON BIPAP WITH SETTINGS PER RT. RT AND THIS RN TRANSFERRED PT IN BED. ALL PERSONAL BELONGINGS SENT DOWN WITH PT. REPORT GIVEN TO JESUS PADILLA.
[2019-06-17] MEDS ORDERED: CEFEPIME 1 GM (MAXIPIME) VIAL ONE ×2 (11:00→17:06)
[2019-06-17] MEDS ORDERED: WATER (STERILE) FOR INJECTION 10 ML ONE ×2 (11:00→17:06)
--- NOTE | 2019-06-17 15:31 | NUR ---
CALLED ЕКАТЕРИНА TO REENTER THE SYMBICORT ORDER SHE ENTERED UNDER CPOE
--- NOTE | 2019-06-17 16:46 | NUR ---
MED REC WAS ENTERED AND CONTINUED BY STAFF PRIOR TO MED REC TECH AVAILABILITY. YESTERDAY, 06-16-19 I REQUESTED A MEDICATION LIST FROM THE [facility], TODAY 06-17-19 I STILL HAVE NOT RECEIVED IT. EARLIER TODAY I CALLED AND LEFT A VOICEMAIL AT THE [facility] REQUESTING THIS INFORMATION SOON POSSIBLE. I STILL HAVE NOT RECEIVED A CALL BACK OR A FAX. THERE WAS A LIST FROM THE PATIENT ON THE CHART WHICH IS WHAT HAS BEEN ENTERED INTO THE MED REC. AT THIS TIME I AM UNABLE TO VERIFY FILL DATES AND DOSES BUT WILL CONTINUE TO TRY TO OBTAIN THE INFORMATION FROM THE [facility]. Addendum: 06/18/19 at 1620 by ENMA MONTES [facility] RECEIVED LIST FROM THE [facility] THIS AFTERNOON, THE RELEASE OF INFORMATION REP HAD BEEN OFF SUNDAY AND SUNDAY. [facility] FILLED: 03-24-19 ALBUTEROL HFA INHALER 2 PUFFS QID PRN #2 03-24-19 SYMBICORT 160 2 PUFFS BID #3 03-24-19 SUCRALFATE 1GM ACHS #360 03-21-19 POTASSIUM 20MEQ 1/2 BID #90 03-20-19 ATORVASTATIN 40MG 1/2 TAB HS #45 03-19-19 FUROSEMIDE 20MG DAILY #90 03-19-19 PROTONIX 40MG DAILY #90 03-19-19 ASPIRIN 81MG EC DAILY #120 HE ALSO VERIFIED HE TAKES TYLENOL NEEDED OTC BUT NOT OFTEN. THE LIST HE HAD BROUGHT IN HAD ALL THESE MEDICATIONS AND STRENGTHS HOWEVER THERE WERE NO FREQUENCIES THEREFORE WE DID NOT KNOW HE WAS TAKING 1/2 TAB OF LIPITOR. I UPDATED THE DIRECTIONS ON THE MED REC. HE VERIFIED HE DOES USE HIS SYMBICORT BID AND HE CUTS HIS POTASSIUM IN HALF. WE HAVE HIS POTASSIUM 1 TAB DAILY OPPOSED TO 1/2 TAB BID.
--- NOTE | 2019-06-17 16:47 | Progress Note ---
Subjective Subjective/Events-last exam Afebrile, but currently on vapotherm. Focused Exam Lactate Level 06/15/19 09:10: Lactic Acid Level 5.99*H 06/15/19 11:08: Lactic Acid Level 1.96 Time of Focused Exam: 11:44 Objective Exam Last Set of Vital Signs Vital Signs Date Time Temp Pulse Resp B/P (MAP) Pulse Ox O2 Delivery O2 Flow Rate FiO2 06/17/19 16:06 36.2 90 28 104/62 (76) 97 NIV Bilevel 06/17/19 15:27 30.00 06/17/19 07:55 30 Capillary Refill : Less Than 3 SecondsLess Than 3 Seconds I&O Intake and Output 06/17/19 00:00 Intake Total 3905 ml Output Total 975 ml Balance 2930 ml Intake Oral 1370 ml IV Total 2535 ml Output Urine Total 975 ml # Bowel Movements 2 General: Alert, Mild Distress Lungs: Other (ronchi) Heart: Regular Rate Neuro: Normal Speech Psych/Mental Status: Mental Status NL Results/Procedures Lab Laboratory Tests 06/17/19 03:18: White Blood Count 10.6, Red Blood Count 3.75L, Hemoglobin 10.8L, Hematocrit 33L, Mean Corpuscular Volume 89, Mean Corpuscular Hemoglobin 29, Mean Corpuscular Hemoglobin Concent 32, Red Cell Distribution Width 16.1H, Platelet Count 185, Mean Platelet Volume 9.4, Neutrophils (%) (Auto) 88H, Lymphocytes (%) (Auto) 7L, Monocytes (%) (Auto) 5, Eosinophils (%) (Auto) 0, Basophils (%) (Auto) 0, Neutrophils # (Auto) 9.3H, Lymphocytes # (Auto) 0.8L, Monocytes # (Auto) 0.5, Eosinophils # (Auto) 0.0, Basophils # (Auto) 0.0, Neutrophils % (Manual) 93, Lymphocytes % (Manual) 5, Monocytes % (Manual) 1, Reactive Lymphocytes 1, Sodium Level 140, Potassium Level 4.1, Chloride Level 115H, Carbon Dioxide Level 16L, Anion Gap 9, Blood Urea Nitrogen 24H, Creatinine 1.29, Estimat Glomerular Filtration Rate 54, BUN/Creatinine Ratio 19, Glucose Level 135H, Calcium Level 7.9L, Phosphorus Level 1.9L, Magnesium Level 1.7 Microbiology 06/15/19 Urine Culture - Final, Complete NO GROWTH 06/15/19 MRSA Screen - Final, Complete MRSA not isolated 06/15/19 Blood Culture - Preliminary, Resulted No growth Assessment/Plan Assessment/Plan (1) Severe sepsis Status: Resolved Assessment & Plan: Secondary to pneumonia, initially with leukocytosis which is resolved today as well as lactic acidosis which is resolved. 2/ improving (2) Pneumonia Status: Acute Assessment & Plan: With severe sepsis, started on cefepime and vancomycin 2/ persistent respiratory distress, appreciate Pulm recommendations. Qualifiers: Qualified Codes: J18.9 - Pneumonia, unspecified organism (3) Acute kidney injury (nontraumatic) Status: Resolved Assessment & Plan: Improved this am, creatinine remains elevated, continue NS at 150 mls/hr (4) COPD with acute lower respiratory infection Status: Acute Assessment & Plan: Solumeol, Dr. Odonnell consulted, appreciate recomme ndations. (5) Elevated troponin I level Status: Acute Assessment & Plan: Suspect related to pneumonia and COPD exacerbation. (6) Metabolic acidosis Status: Acute Assessment & Plan: Secondary to renal insufficiency, improving. Bicarb given per Dr. Odonnell (7) DVT prophylaxis Status: Acute Assessment & Plan: Enoxaparin Clinical Quality Measures DVT/VTE Risk/Contraindication: Risk Factor Score Per Nursin RFS Level Per Nursing on Admit: 4+=Very High ILIA PERRY MD Jun 17, 2019 16:46
--- NOTE | 2019-06-17 20:18 | NUR ---
Notified Dr. Gross that pt's BP was 99/52, down from what the pt was running the entire day. Gave all other Vital Signs - HR=91; Temp= 36.2C; RR:26; 99% on BiPap. Pt is asymptomatic and is relaxed. Received orders to increase LR IV fluid rate from 75ml/hr to 150ml/hr and monitor blood pressure. Will follow orders.
[2019-06-18] VITALS (7 sets, daily range): BP systolic 105–146; BP diastolic 60–80
[2019-06-18] MEDS: methylPREDNISolone 40 MG/ML (Solu-MEDROL) VIAL IV SCH ×4 (00:15→17:41)
[2019-06-18] MEDS ORDERED: CEFEPIME 1 GM (MAXIPIME) VIAL ONE (02:19)
[2019-06-18] MEDS ORDERED: WATER (STERILE) FOR INJECTION 10 ML ONE (02:19)
[2019-06-18] MEDS: RT-ALBUTEROL/IPRATROPIUM 3 ML (DUONEB) VIAL INH SCH ×7 (02:29→22:22)
[2019-06-18] MEDS: CEFEPIME 1,000 MG/SWFI 10 ML IV PUSH IV SCH ×6 (02:33→17:41)
[2019-06-18] MEDS: LACTATED RINGERS 1,000 ML IV SCH ×2 (03:49→08:17)
[2019-06-18 05:16] LABS: BASOPHILS % (AUTO) 0 % (0-10); EOSINOPHILS % (AUTO) 0 % (0-10); HEMATOCRIT 34 % (40-54); HEMOGLOBIN 11.3 G/DL (13.3-17.7); LYMPHOCYTES # (AUTO) 1.5 X 10^3 (1.0-4.0); LYMPHOCYTES % (AUTO) 13 % (12-44); MEAN CORPUSCULAR HEMOGLOBIN 29 PG (25-34); MEAN CORPUSCULAR HGB CONC 33 G/DL (32-36); MEAN CORPUSCULAR VOLUME 88 FL (80-99); MEAN PLATELET VOLUME 9.6 FL (7.4-10.4); MONOCYTES # (AUTO) 0.8 X 10^3 (0.0-1.0); MONOCYTES % (AUTO) 7 % (0-12); NEUTROPHILS # (AUTO) 9.1 X 10^3 (1.8-7.8); NEUTROPHILS % (AUTO) 80 % (42-75); PLATELET COUNT 210 10^3/uL (130-400); RED CELL DISTRIBUTION WIDTH 15.8 % (10.0-14.5); WHITE BLOOD COUNT 11.4 10^3/uL (4.3-11.0)
[2019-06-18] MEDS: SUCRALFATE 1 GM (CARAFATE) TAB PO SCH ×4 (05:16→20:13)
[2019-06-18 05:46] LABS: CALCIUM 8.5 MG/DL (8.5-10.1); CREATININE SERUM 1.21 MG/DL (0.60-1.30); MAGNESIUM 2.3 MG/DL (1.6-2.4); PHOSPHORUS 2.8 MG/DL (2.3-4.7); POTASSIUM 4.1 MMOL/L (3.6-5.0)
[2019-06-18] MEDS: ENOXAPARIN 40 MG/0.4 ML (LOVENOX) SYR SC SCH (06:41)
[2019-06-18] MEDS: KCL 20 MEQ TAB (K-DUR) PO SCH (08:14)
[2019-06-18] MEDS: PANTOPRAZOLE 40 MG (PROTONIX) TAB PO SCH (08:15)
[2019-06-18] MEDS: ASPIRIN E.C. 81 MG (ECOTRIN) TAB PO SCH (08:15)
[2019-06-18] MEDS: FUROSEMIDE 20 MG (LASIX) TAB PO SCH (08:15)
--- NOTE | 2019-06-18 08:21 | Progress Note ---
Subjective Subjective/Events-last exam Afebrile, continues to have significant respiratory difficulty and is on and off of bipap, but states he feels well. Focused Exam Lactate Level 06/15/19 09:10: Lactic Acid Level 5.99*H 06/15/19 11:08: Lactic Acid Level 1.96 Time of Focused Exam: 11:44 Objective Exam Last Set of Vital Signs Vital Signs Date Time Temp Pulse Resp B/P (MAP) Pulse Ox O2 Delivery O2 Flow Rate FiO2 06/18/19 08:00 112 33 92 35.00 06/18/19 07:07 Vapotherm 50 06/18/19 04:00 36.1 106/60 (75) Capillary Refill : Less Than 3 SecondsLess Than 3 Seconds I&O Intake and Output 06/18/19 00:00 Intake Total 4200 ml Output Total 1825 ml Balance 2375 ml Intake Oral 2115 ml IV Total 2085 ml Output Urine Total 1825 ml # Bowel Movements 1 General: Alert, Mild Distress Lungs: Other (rales, wheezing) Heart: Regular Rate, No Murmurs Neuro: Normal Speech Psych/Mental Status: Mood NL Results/Procedures Lab Laboratory Tests 06/18/19 05:05: White Blood Count 11.4H, Red Blood Count 3.89L, Hemoglobin 11.3L, Hematocrit 34L , Mean Corpuscular Volume 88, Mean Corpuscular Hemoglobin 29, Mean Corpuscular Hemoglobin Concent 33, Red Cell Distribution Width 15.8H, Platelet Count 210, Mean Platelet Volume 9.6, Neutrophils (%) (Auto) 80H, Lymphocytes (%) (Auto) 13, Monocytes (%) (Auto) 7, Eosinophils (%) (Auto) 0, Basophils (%) (Auto) 0, Neutrophils # (Auto) 9.1H, Lymphocytes # (Auto) 1.5, Monocytes # (Auto) 0.8, E osinophils # (Auto) 0.0, Basophils # (Auto) 0.0, Sodium Level 141, Potassium Level 4.1, Chloride Level 108H, Carbon Dioxide Level 23, Anion Gap 10, Blood Urea Nitrogen 24H, Creatinine 1.21, Estimat Glomerular Filtration Rate 58, BUN/Creatinine Ratio 20, Glucose Level 139H, Calcium Level 8.5, Phosphorus Level 2.8, Magnesium Level 2.3 Microbiology 06/15/19 Urine Culture - Final, Complete NO GROWTH 06/15/19 MRSA Screen - Final, Complete MRSA not isolated 06/15/19 Blood Culture - Preliminary, Resulted No growth Assessment/Plan Assessment/Plan (1) Severe sepsis Status: Resolved Assessment & Plan: Secondary to pneumonia, initially with leukocytosis which is resolved today as well as lactic acidosis which is resolved. 06/17 improving (2) Pneumonia Status: Acute Assessment & Plan: With severe sepsis, started on cefepime and vancomycin 2 persistent respiratory distress, appreciate Pulm recommendations. 06/18 vancomycin has been d/c, no MRSA growth, continue cefepime Qualifiers: Qualified Codes: J18.9 - Pneumonia, unspecified organism (3) Acute kidney injury (nontraumatic) Status: Resolved Assessment & Plan: Improved this am, creatinine remains elevated, continue NS at 150 mls/hr (4) COPD with acute lower respiratory infection Status: Acute Assessment & Plan: Solumedrol, Dr. Odonnell consulted, appreciate recommendations. 06/18 still requiring vapotherm with 50% FiO2 and at times bipap. He confirms he wants to be DNR and does agree he may be interested in palliative care/hospice discussion if he continues to have difficulties. (5) Elevated troponin I level Status: Acute Assessment & Plan: Suspect related to pneumonia and COPD exacerbation. (6) Metabolic acidosis Status: Acute Assessment & Plan: Secondary to renal insufficiency, improving. Bicarb given per Dr. Odonnell (7) DVT prophylaxis Status: Acute Assessment & Plan: Enoxaparin Clinical Quality Measures DVT/VTE Risk/Contraindication: Risk Factor Score Per Nursin RFS Level Per Nursing on Admit: 4+=Very High ILIA PERRY MD Jun 18, 2019 08:21
[2019-06-18] MEDS: RT-ADVAIR HFA 115/21 MCG PER PUFF IH SCH ×2 (10:21→18:05)
--- NOTE | 2019-06-18 10:27 | Pulmonary Progress Note ---
Subjective Time Seen by a Provider: 10:22 Subjective/Events-last exam Pt is very coarse and has increased WOB. Sepsis Event Evaluation Height, Weight, BMI Height: 5'7.00" Weight: 120lbs. 0.0oz. 54.834352cx; 18.00 BMI Method:Stated Focused Exam Lactate Level 06/15/19 11:08: Lactic Acid Level 1.96 Time of Focused Exam: 11:44 Exam Exam Vital Signs Date Time Temp Pulse Resp B/P (MAP) Pulse Ox O2 Delivery O2 Flow Rate FiO2 06/18/19 08:49 36.2 104 18 138/80 (99) 98 Vapotherm 40.00 50.00 06/18/19 08:30 96 NIV Bilevel 40.00 30 06/18/19 08:00 112 33 92 35.00 06/18/19 07:07 91 Vapotherm 40.00 50 06/18/19 04:00 36.1 72 20 106/60 (75) 94 NIV Bilevel 06/18/19 02:29 78 20 98 25.00 06/17/19 23:59 36.8 83 27 106/61 (76) 98 NIV Bilevel 06/17/19 21:37 80 25 99 30.00 06/17/19 21:00 96 NIV Bilevel 40.00 30 06/17/19 20:16 36.2 91 26 99/52 (68) 99 NIV Bilevel 06/17/19 17:58 96 Vapotherm 40.00 30 06/17/19 16:06 36.2 90 28 104/62 (76) 97 NIV Bilevel 06/17/19 16:00 NIV Bilevel 40.00 06/17/19 15:27 86 20 95 30.00 06/17/19 12:00 100 NIV Bilevel 40.00 06/17/19 11:43 36.7 100 37 134/77 (96) 100 NIV Bilevel 06/17/19 11:08 94 29 94 30.00 I & O 06/18/19 07:00 Intake Total 4175 ml Output Total 1575 ml Balance 2600 ml Height & Weight Height: 5'7.00" Weight: 120lbs. 0.0oz. 54.103301vu; 18.00 BMI Method:Stated General Appearance: Anxious, Chronically ill, Mild Distress, Thin HEENT: PERRL/EOMI, Pharynx Normal Neck: Full Range of Motion, Non Tender, Supple Respiratory: Chest Non Tender, Accessory Muscle Use (mild), Decreased Breath Sounds, Respiratory Distress (mild), Wheezing Cardiovascular: Regular Rate, Rhythm (99), Normal Peripheral Pulses Capillary Refill: Less Than 3 Seconds Peripheral Pulses: 2+ Radial Pulses (R), 2+ Radial Pulses (L) Gastrointestinal: normal bowel sounds, non tender Extremity: Normal Capillary Refill, Non Tender, No Pedal Edema Neurologic/Psychiatric: Alert, Oriented x3 Skin: Normal Color, Warm/Dry Lymphatic: No Adenopathy Results Lab Laboratory Tests 06/17/19 03:18 06/18/19 05:05 Assessment/Plan Assessment/Plan Acute respiratory distress-- -Will give 80mg of Lasix IV X 1 -Call for extra SVN tx and check CXR -Currently requiring high flow oxygen -- Titrate down -Check CT of chest secondary to possible lung mass per CXR. Severe sepsis with pneumonia -Continue cefepime -Wasserman cultures pending Metabolic lactic acidosis -Give 2 amps of bicarb and repeat ABG at 11. -IVF -Monitor Pneumonia COPD -Duonebs -Oxygen -Solumedrol Anemia -Monitor AKF -IVF -Monitor ELINA ALVAREZ DO Jun 18, 2019 10:27
--- NOTE | 2019-06-18 11:05 | NUR ---
Dr. Odonnell came in to assess the pt. Dr. Odonnell assessed that pt was short of breath. This RN stated that pt had recently been changed from the BiPap to the Vapotherm. This RN received verbal orders from Dr. Odonnell to DC IV fluids, give 80 mg of lasix, 40 meq of potassium, and a chest x-ray. 1115: This RN gave the pt the 80 mg of IV lasix. This RN took vital signs after administration BP146/72, 99% O2, 114 pulse, and 30 respirations. This RN called respiratory to move pt back to the BiPap. 1205: Pt's vitals taking again at this time BP 105/70, 125 pulse, 97% O2, and 27 respirations. 1210: This RN spoke with Dr. Gross about the updates on the pt.
[2019-06-18] MEDS ORDERED: FUROSEMIDE 40 MG/4 ML INJ (LASIX) IVP NR (11:15)
--- NOTE | 2019-06-18 11:18 | NUR ---
Spoke with Dr Odonnell and updated that pt received breathing tx at 1021, telephone orders received for duoneb svn to be given x 1 at this time,
[2019-06-18] MEDS ORDERED: KCL 20 MEQ TAB (K-DUR) PO NR (11:30)
--- NOTE | 2019-06-18 11:37 | Diagnostic Imaging Report ---
INDICATION: Severe sepsis. COMPARISON: 06/17/2019 FINDINGS: Single frontal radiographic view of the chest was obtained and demonstrates diffuse coarse prominence of the interstitium. This may be slightly more prominent when compared to prior exam. There is also minimal patchy opacity within the right lung base partially obscuring the right hemidiaphragm. Small effusion is suspected. There is no large effusion on the left. No pneumothorax is seen on either side. Cardiac silhouette and pulmonary vasculature are within normal limits. Right internal jugular central venous catheter is seen with tip in the SVC. Osseous structures show no acute abnormalities. IMPRESSION: 1. Diffuse coarse prominence of the interstitium, which may be slightly more prominent when compared to one day prior. Findings could be on the basis of mild interstitial edema. 2. Probable right basilar atelectasis and small effusion. Dictated by: Dictated on workstation # [id number]
[2019-06-18] MEDS ORDERED: NS 100 ML (IVPB) BAG IV ONE (12:15)
[2019-06-18] MEDS ORDERED: IOHEXOL 350 MG/ML 100 ML (OMNIPAQUE 350) VIAL IV ONE (12:15)
[2019-06-18] MEDS ORDERED: HOLD METFORMIN - RECEIVED CONTRAST 20 ML VIAL IV SCH (12:15)
--- NOTE | 2019-06-18 13:06 | NUR ---
Eda from radiology came and got pt for CT scan at this time. Respiratory therapy called to follow pt with the BiPap.
--- NOTE | 2019-06-18 13:25 | NUR ---
THIS RT ASSIST WITH TRANSPORT TO CT AND BACK ON BIPAP W/O INCIDENT SPO2 REMAINS ABOVE 90% DURING TRANSPORT. PT W/O COMPLAINTS AT THIS TIME. NO S/S OF DISTRESS NOTED
--- NOTE | 2019-06-18 13:45 | Diagnostic Imaging Report ---
EXAMINATION: CT Chest with intravenous contrast. TECHNIQUE: Multiple contiguous axial images were obtained through the chest after the uneventful administration of intravenous contrast. All CT scans use one or more of the following dose optimizing techniques: automated exposure control, MA and/or KvP adjustment based on a patient size and exam type, or iterative reconstruction. HISTORY: Possible lung nodule. COMPARISON: 11/11/2018 FINDINGS: There is mild septal line thickening consistent with edema. No pneumonia. There is a small left pleural effusion. No pneumothorax. There is tracheomalacia. Lungs are severely emphysematous. Patchy areas of atelectasis and scarring are seen within the lungs. The most discrete nodular area is in the right upper lobe and is 9 mm in average diameter. Heart size is normal. No pericardial effusion. Aorta is normal in caliber. There is no axillary or supraclavicular lymphadenopathy. There is no mediastinal lymphadenopathy. There are severe coronary artery calcifications. Right internal jugular central venous catheter tip terminates in the superior vena cava. Limited views of the upper abdomen are unremarkable. There are no suspicious osseus lesions. There is a stable mild compression fracture in the upper thoracic spine and a new mild compression fracture of L2 that was not included in the [id number] on prior exam. IMPRESSION: 1. Indeterminate right upper lobe nodule measuring 9 mm that may represent scarring or atelectasis. According to the Fleischner Society guidelines: Recommend CT at 3 months. 2. Tracheomalacia and mild pulmonary edema. Dictated by: Dictated on workstation # [id number]
--- NOTE | 2019-06-18 16:00 | NUR ---
This RN took over care from VALERIE Rai and received report at this time. Addendum: 06/18/19 at 1624 by MARVIN GENTILE RN This note made and error, wrong patient.
[2019-06-18] MEDS ORDERED: ATOR40TA70 PO (16:14)
[2019-06-18] MEDS ORDERED: ACET-2267 PO (16:15)
--- NOTE | 2019-06-18 19:30 | NUR ---
Received call from Pharmacy that there is discrepancy between pt's home meds and what was ordered for the patient. Atorvastatin 40mg was ordered, pt takes 20mg at home. Potassium chloride 20 mEq was ordered, pt takes 10mEq BID at home. Notified Dr. Gross and received order to change to home doses. Will follow order.
[2019-06-19] VITALS (8 sets, daily range): BP systolic 104–129; BP diastolic 59–78
[2019-06-19] MEDS: methylPREDNISolone 40 MG/ML (Solu-MEDROL) VIAL IV SCH ×4 (00:22→18:32)
[2019-06-19] MEDS ORDERED: CEFEPIME 1 GM (MAXIPIME) VIAL ONE (02:13)
[2019-06-19] MEDS ORDERED: WATER (STERILE) FOR INJECTION 10 ML ONE (02:13)
[2019-06-19] MEDS: RT-ALBUTEROL/IPRATROPIUM 3 ML (DUONEB) VIAL INH SCH ×6 (02:24→22:16)
[2019-06-19] MEDS: CEFEPIME 1,000 MG/SWFI 10 ML IV PUSH IV SCH ×6 (02:33→18:32)
[2019-06-19] MEDS: SUCRALFATE 1 GM (CARAFATE) TAB PO SCH ×4 (05:30→20:07)
[2019-06-19 05:47] LABS: BASOPHILS % (AUTO) 0 % (0-10); EOSINOPHILS % (AUTO) 0 % (0-10); HEMATOCRIT 30 % (40-54); LYMPHOCYTES # (AUTO) 1.3 X 10^3 (1.0-4.0); LYMPHOCYTES % (AUTO) 15 % (12-44); MEAN CORPUSCULAR HEMOGLOBIN 29 PG (25-34); MEAN CORPUSCULAR HGB CONC 33 G/DL (32-36); MEAN CORPUSCULAR VOLUME 88 FL (80-99); MEAN PLATELET VOLUME 9.2 FL (7.4-10.4); MONOCYTES # (AUTO) 0.7 X 10^3 (0.0-1.0); MONOCYTES % (AUTO) 8 % (0-12); NEUTROPHILS # (AUTO) 6.8 X 10^3 (1.8-7.8); NEUTROPHILS % (AUTO) 77 % (42-75); PLATELET COUNT 204 10^3/uL (130-400); RED CELL DISTRIBUTION WIDTH 15.6 % (10.0-14.5); WHITE BLOOD COUNT 8.9 10^3/uL (4.3-11.0)
[2019-06-19 06:27] LABS: CALCIUM 8.5 MG/DL (8.5-10.1); CREATININE SERUM 1.23 MG/DL (0.60-1.30); MAGNESIUM 2.2 MG/DL (1.6-2.4)
[2019-06-19] MEDS: ENOXAPARIN 40 MG/0.4 ML (LOVENOX) SYR SC SCH (06:51)
--- NOTE | 2019-06-19 07:24 | Progress Note ---
Subjective Subjective/Events-last exam Afebrile, currently using bipap at 25% FiO2, 25/09. Feels okay, denies concerns. Objective Exam Last Set of Vital Signs Vital Signs Date Time Temp Pulse Resp B/P (MAP) Pulse Ox O2 Delivery O2 Flow Rate FiO2 06/19/19 04:00 36.8 87 26 120/62 (81) 95 NIV Bilevel 06/19/19 02:24 25.00 06/18/19 21:00 30 Capillary Refill : Less Than 3 SecondsLess Than 3 Seconds I&O Intake and Output 06/18/19 23:59 Intake Total 2380 ml Output Total 2175 ml Balance 205 ml Intake Oral 1370 ml IV Total 1010 ml Output Urine Total 2175 ml General: Alert, No Acute Distress Lungs: Normal Air Movement, Other (ronchi) Heart: Regular Rate Extremities: No Edema Neuro: Normal Speech Psych/Mental Status: Mood NL Results/Procedures Lab Laboratory Tests 06/19/19 05:35: White Blood Count 8.9, Red Blood Count 3.45L, Hemoglobin 10.0L, Hematocrit 30L, Mean Corpuscular Volume 88, Mean Corpuscular Hemoglobin 29, Mean Corpuscular Hemoglobin Concent 33, Red Cell Distribution Width 15.6H, Platelet Count 204, Mean Platelet Volume 9.2, Neutrophils (%) (Auto) 77H, Lymphocytes (%) (Auto) 15, Monocytes (%) (Auto) 8, Eosinophils (%) (Auto) 0, Basophils (%) (Auto) 0, Neutrophils # (Auto) 6.8, Lymphocytes # (Auto) 1.3, Monocytes # (Auto) 0.7, Eosinophils # (Auto) 0.0, Basophils # (Auto) 0.0, Sodium Level 141, Potassium Level 4.0, Chloride Level 105, Carbon Dioxide Level 29, Anion Gap 7, Blood Urea Nitrogen 28H, Creatinine 1.23, Estimat Glomerular Filtration Rate 57, BUN/Creatinine Ratio 23, Glucose Level 155H, Calcium Level 8.5, Phosphorus Level 2.0L, Magnesium Level 2.2 Microbiology 06/15/19 Urine Culture - Final, Complete NO GROWTH 06/15/19 MRSA Screen - Final, Complete MRSA not isolated 06/15/19 Blood Culture - Preliminary, Resulted No growth Assessment/Plan Assessment/Plan (1) Severe sepsis Status: Resolved Assessment & Plan: Secondary to pneumonia, initially with leukocytosis which is resolved today as well as lactic acidosis which is resolved. / improving (2) Pneumonia Status: Acute Assessment & Plan: With severe sepsis, started on cefepime and vancomycin 2/ persistent respiratory distress, appreciate Pulm recommendations. 06/18 vancomycin has been d/c, no MRSA growth, continue cefepime 06/19 continued on cefepime Qualifiers: Qualified Codes: J18.9 - Pneumonia, unspecified organism (3) Acute kidney injury (nontraumatic) Status: Resolved Assessment & Plan: Improved this am, creatinine remains elevated, continue NS at 150 mls/hr (4) COPD with acute lower respiratory infection Status: Acute Assessment & Plan: Loriumedrcoleen, Dr. Odonnell consulted, appreciate r ecommendations. 06/18 still requiring vapotherm with 50% FiO2 and at times bipap. He confirms he wants to be DNR and does agree he may be interested in palliative care/hospice discussion if he continues to have difficulties. 06/19 CT done yesterday and showed 9 mm indeterminate mass, f/u in 3 months recommended. Continuing on bipap and vapotherm (5) Elevated troponin I level Status: Acute Assessment & Plan: Suspect related to pneumonia and COPD exacerbation. (6) Metabolic acidosis Status: Resolved Assessment & Plan: Secondary to renal insufficiency, improving. Bicarb given per Dr. Odonnell (7) DVT prophylaxis Status: Acute Assessment & Plan: Enoxaparin Clinical Quality Measures DVT/VTE Risk/Contraindication: Risk Factor Score Per Nursin RFS Level Per Nursing on Admit: 4+=Very High ILIA PERRY MD Jun 19, 2019 07:24
[2019-06-19] MEDS: RT-ADVAIR HFA 115/21 MCG PER PUFF IH SCH ×2 (08:22→22:16)
[2019-06-19] MEDS: KCL 20 MEQ TAB (K-DUR) PO SCH ×2 (08:35→20:08)
[2019-06-19] MEDS: FUROSEMIDE 20 MG (LASIX) TAB PO SCH (08:35)
[2019-06-19] MEDS: PANTOPRAZOLE 40 MG (PROTONIX) TAB PO SCH (08:35)
[2019-06-19] MEDS: ASPIRIN E.C. 81 MG (ECOTRIN) TAB PO SCH (08:35)
--- NOTE | 2019-06-19 12:10 | Pulmonary Progress Note ---
Subjective Time Seen by a Provider: 12:08 Subjective/Events-last exam Pt appears to be improving Sepsis Event Evaluation Height, Weight, BMI Height: 5'7.00" Weight: 120lbs. 0.0oz. 54.423576va; 18.00 BMI Method:Stated Focused Exam Time of Focused Exam: 11:44 Exam Exam Vital Signs Date Time Temp Pulse Resp B/P (MAP) Pulse Ox O2 Delivery O2 Flow Rate FiO2 06/19/19 11:36 90 18 116/71 (86) 96 NIV Bilevel 06/19/19 10:43 79 19 93 25.00 06/19/19 09:00 96 NIV Bilevel 25.00 30 06/19/19 08:23 91 Vapotherm 40.00 25 06/19/19 07:50 36.5 78 18 112/68 (83) 96 NIV Bilevel 06/19/19 07:31 76 18 91 25.00 06/19/19 04:00 36.8 87 26 120/62 (81) 95 NIV Bilevel 06/19/19 02:24 78 21 98 25.00 06/19/19 00:00 36.6 88 22 104/59 (74) 94 Vapotherm 40.00 50.00 06/18/19 22:22 76 32 98 25.00 06/18/19 21:00 96 NIV Bilevel 40.00 30 06/18/19 20:00 36.4 107 30 112/66 (81) 93 NIV Bilevel 06/18/19 18:05 95 Vapotherm 40.00 50 06/18/19 15:36 36.3 99 26 108/65 (79) 94 NIV Bilevel 06/18/19 14:57 36.4 107 32 119/73 (88) 92 NIV Bilevel 06/18/19 14:09 83 32 98 25.00 I & O 06/19/19 07:00 Intake Total 1170 ml Output Total 3000 ml Balance -1830 ml Height & Weight Height: 5'7.00" Weight: 120lbs. 0.0oz. 54.159245mu; 18.00 BMI Method:Stated General Appearance: Anxious, Chronically ill, Mild Distress, Thin HEENT: PERRL/EOMI, Pharynx Normal Neck: Full Range of Motion, Non Tender, Supple Respiratory: Chest Non Tender, Accessory Muscle Use (mild), Decreased Breath Sounds, Respiratory Distress (mild), Wheezing Cardiovascular: Regular Rate, Rhythm (99), Normal Peripheral Pulses Capillary Refill: Less Than 3 Seconds Peripheral Pulses: 2+ Radial Pulses (R), 2+ Radial Pulses (L) Gastrointestinal: normal bowel sounds, non tender Extremity: Normal Capillary Refill, Non Tender, No Pedal Edema Neurologic/Psychiatric: Alert, Oriented x3 Skin: Normal Color, Warm/Dry Lymphatic: No Adenopathy Results Lab Laboratory Tests 06/18/19 05:05 06/19/19 05:35 Assessment/Plan Assessment/Plan Acute respiratory distress-- -Call for extra SVN tx and check CXR -Currently requiring high flow oxygen -- Titrate down -Check CT of chest secondary to possible lung mass per CXR. Severe sepsis with pneumonia -Continue cefepime -Wasserman cultures pending COPD -Duonebs -Oxygen -Solumedrol Anemia -Monitor AKF -IVF -Monitor ELINA ALVAREZ DO Jun 19, 2019 12:10
[2019-06-20] MEDS: CEFEPIME 1,000 MG/SWFI 10 ML IV PUSH IV SCH ×6 (01:06→17:34)
[2019-06-20] MEDS: methylPREDNISolone 40 MG/ML (Solu-MEDROL) VIAL IV SCH ×2 (01:06→05:41)
[2019-06-20] MEDS: RT-ALBUTEROL/IPRATROPIUM 3 ML (DUONEB) VIAL INH SCH ×5 (02:22→23:00)
[2019-06-20 03:51] VITALS: BP 113/70
[2019-06-20] MEDS: SUCRALFATE 1 GM (CARAFATE) TAB PO SCH ×4 (05:41→21:18)
[2019-06-20 06:00] LABS: BASOPHILS % (AUTO) 0 % (0-10); EOSINOPHILS % (AUTO) 0 % (0-10); HEMATOCRIT 31 % (40-54); HEMOGLOBIN 10.4 G/DL (13.3-17.7); LYMPHOCYTES % (AUTO) 8 % (12-44); MEAN CORPUSCULAR HEMOGLOBIN 29 PG (25-34); MEAN CORPUSCULAR HGB CONC 34 G/DL (32-36); MEAN CORPUSCULAR VOLUME 87 FL (80-99); MEAN PLATELET VOLUME 9.5 FL (7.4-10.4); MONOCYTES # (AUTO) 1.1 X 10^3 (0.0-1.0); MONOCYTES % (AUTO) 9 % (0-12); NEUTROPHILS # (AUTO) 9.8 X 10^3 (1.8-7.8); NEUTROPHILS % (AUTO) 83 % (42-75); PLATELET COUNT 218 10^3/uL (130-400); RED CELL DISTRIBUTION WIDTH 15.4 % (10.0-14.5); WHITE BLOOD COUNT 11.9 10^3/uL (4.3-11.0)
[2019-06-20 06:32] LABS: CALCIUM 8.5 MG/DL (8.5-10.1); CREATININE SERUM 1.19 MG/DL (0.60-1.30); MAGNESIUM 2.2 MG/DL (1.6-2.4); POTASSIUM 3.7 MMOL/L (3.6-5.0)
[2019-06-20] MEDS: RT-ADVAIR HFA 115/21 MCG PER PUFF IH SCH (06:50)
--- NOTE | 2019-06-20 07:21 | Pulmonary Progress Note ---
Subjective Time Seen by a Provider: 07:15 Subjective/Events-last exam Pt appears to be doing better. Sepsis Event Evaluation Height, Weight, BMI Height: 5'7.00" Weight: 120lbs. 0.0oz. 54.318702sl; 18.00 BMI Method:Stated Exam Exam Vital Signs Date Time Temp Pulse Resp B/P (MAP) Pulse Ox O2 Delivery O2 Flow Rate FiO2 06/20/19 06:57 Vapotherm 40.00 25 06/20/19 06:51 92 Vapotherm 40.00 25 06/20/19 03:51 36.4 80 27 113/70 (84) 91 Vapotherm 40.00 25.00 06/20/19 02:22 94 Vapotherm 40.00 25 06/19/19 23:56 36.4 83 19 111/64 (80) 94 NIV Bilevel 40.00 30.00 06/19/19 22:16 94 28 91 25.00 06/19/19 20:00 96 NIV Bilevel 25.00 30 06/19/19 20:00 36.8 55 35 129/78 (95) 83 NIV Bilevel 40.00 30.00 06/19/19 18:37 93 Vapotherm 40.00 25 06/19/19 17:49 36.0 100 17 123/77 (92) 95 Vapotherm 40.00 30.00 06/19/19 16:02 90 18 116/71 (86) 96 NIV Bilevel 06/19/19 15:15 91 Vapotherm 40.00 25 06/19/19 11:36 90 18 116/71 (86) 96 NIV Bilevel 06/19/19 10:43 79 19 93 25.00 06/19/19 09:00 96 NIV Bilevel 25.00 30 06/19/19 08:23 91 Vapotherm 40.00 25 06/19/19 07:50 36.5 78 18 112/68 (83) 96 NIV Bilevel 06/19/19 07:31 76 18 91 25.00 I & O 06/20/19 07:00 Intake Total 1590 ml Output Total 1825 ml Balance -235 ml Height & Weight Height: 5'7.00" Weight: 120lbs. 0.0oz. 54.769515nb; 18.00 BMI Method:Stated General Appearance: Anxious, Chronically ill, Mild Distress, Thin HEENT: PERRL/EOMI, Pharynx Normal Neck: Full Range of Motion, Non Tender, Supple Respiratory: Chest Non Tender, Accessory Muscle Use (mild), Decreased Breath Sounds, Respiratory Distress (mild), Wheezing Cardiovascular: Regular Rate, Rhythm (99), Normal Peripheral Pulses Capillary Refill: Less Than 3 Seconds Peripheral Pulses: 2+ Radial Pulses (R), 2+ Radial Pulses (L) Gastrointestinal: normal bowel sounds, non tender Extremity: Normal Capillary Refill, Non Tender, No Pedal Edema Neurologic/Psychiatric: Alert, Oriented x3 Skin: Normal Color, Warm/Dry Lymphatic: No Adenopathy Results Lab Laboratory Tests 06/19/19 05:35 06/20/19 05:40 Assessment/Plan Assessment/Plan Acute respiratory distress-- -Repeat check CXR -Currently requiring high flow oxygen -- Titrate down -- trial vapotherm to NC -Repeat BNP Severe sepsis with pneumonia -Continue cefepime -Wasserman cultures pending Lung nodule -Will repeat CT scan in 3mo. COPD -Duonebs -Oxygen -Solumedrol -- change to Prednisone taper Anemia -Monitor AKF -Monitor ELINA ALVAREZ DO Jun 20, 2019 07:21
[2019-06-20] MEDS ORDERED: POTASSIUM PHOSPHATE INJ 30 MM in NS (IVPB) 250 ML IV ONE (07:45)
[2019-06-20] MEDS ORDERED: POTASSIUM PHOSPHATE INJ 30 MM in NS IV 500 ML 500 ML IV ONE (07:45)
[2019-06-20 08:00] VITALS: BP 115/67
[2019-06-20] MEDS: ENOXAPARIN 40 MG/0.4 ML (LOVENOX) SYR SC SCH (08:45)
[2019-06-20] MEDS: KCL 20 MEQ TAB (K-DUR) PO SCH ×2 (08:46→21:21)
[2019-06-20] MEDS: ASPIRIN E.C. 81 MG (ECOTRIN) TAB PO SCH (08:46)
[2019-06-20] MEDS: PANTOPRAZOLE 40 MG (PROTONIX) TAB PO SCH (08:46)
[2019-06-20] MEDS: FUROSEMIDE 20 MG (LASIX) TAB PO SCH (08:47)
[2019-06-20] MEDS: predniSONE 10 MG TAB PO SCH (08:47)
--- NOTE | 2019-06-20 10:44 | Diagnostic Imaging Report ---
INDICATION: Shortness of breath. TIME OF EXAM: 10:08 a.m. COMPARISON: Correlation is made with prior study from 06/18/2019. FINDINGS: The heart size is stable. There are linear densities throughout both lungs likely owing to interstitial fibrosis. A right IJ line has a tip in good position overlying the SVC. No pneumothorax is identified. No significant effusion or pneumothorax is identified. IMPRESSION: Overall stable appearance of the chest when compared with the examination two days earlier. Dictated by: Dictated on workstation # [id number]
--- NOTE | 2019-06-20 11:05 | NUR ---
Pastoral care visit.
[2019-06-20 12:00] VITALS: BP 111/69
--- NOTE | 2019-06-20 13:55 | Progress Note ---
Subjective Subjective/Events-last exam Afebrile, states he is feeling okay, denies concerns. Objective Exam Last Set of Vital Signs Vital Signs Date Time Temp Pulse Resp B/P (MAP) Pulse Ox O2 Delivery O2 Flow Rate FiO2 06/20/19 12:00 36.4 80 18 111/69 (83) 95 Vapotherm 40.00 25.00 06/20/19 10:20 25 Capillary Refill : Less Than 3 SecondsLess Than 3 Seconds I&O Intake and Output 06/20/19 00:00 Intake Total 1530 ml Output Total 2600 ml Balance -1070 ml Intake Oral 1500 ml IV Total 30 ml Output Urine Total 2600 ml # Bowel Movements 1 General: Alert, Mild Distress Lungs: Other (decreased air movement throughout) Heart: Regular Rate Extremities: No Edema Neuro: Normal Speech Psych/Mental Status: Mood NL Results/Procedures Lab Laboratory Tests 06/20/19 05:40: White Blood Count 11.9H, Red Blood Count 3.55L, Hemoglobin 10.4L, Hematocrit 31L , Mean Corpuscular Volume 87, Mean Corpuscular Hemoglobin 29, Mean Corpuscular Hemoglobin Concent 34, Red Cell Distribution Width 15.4H, Platelet Count 218, Mean Platelet Volume 9.5, Neutrophils (%) (Auto) 83H, Lymphocytes (%) (Auto) 8L, Monocytes (%) (Auto) 9, Eosinophils (%) (Auto) 0, Basophils (%) (Auto) 0, Neutrophils # (Auto) 9.8H, Lymphocytes # (Auto) 1.0, Monocytes # (Auto) 1.1H, Eosinophils # (Auto) 0.0, Basophils # (Auto) 0.0, Sodium Level 138, Potassium Level 3.7, Chloride Level 102, Carbon Dioxide Level 28, Anion Gap 8, Blood Urea Nitrogen 30H, Creatinine 1.19, Estimat Glomerular Filtration Rate 59, BUN/Creatinine Ratio 25, Glucose Level 154H, Calcium Level 8.5, Phosphorus Level 2.0L, Magnesium Level 2.2, B-Type Natriuretic Peptide 1029.7H Microbiology 06/15/19 Urine Culture - Final, Complete NO GROWTH 06/15/19 MRSA Screen - Final, Complete MRSA not isolated 06/15/19 Blood Culture - Preliminary, Resulted No growth Assessment/Plan Assessment/Plan (1) Severe sepsis Status: Resolved Assessment & Plan: Secondary to pneumonia, initially with leukocytosis which is resolved today as well as lactic acidosis which is resolved. (2) Pneumonia Status: Acute Assessment & Plan: With severe sepsis, started on cefepime and vancomycin 06/17 persistent respiratory distress, appreciate Pulm recommendations. 06/18 vancomycin has been d/c, no MRSA growth, continue cefepime 06/19 continued on cefepime 06/20 improving slowly, continued on cefepime Qualifiers: Qualified Codes: J18.9 - Pneumonia, unspecified organism (3) Acute kidney injury (nontraumatic) Status: Resolved Assessment & Plan: Improved this am, creatinine remains elevated, continue NS at 150 mls/hr (4) COPD with acute lower respiratory infection Status: Acute Assessment & Plan: Solumedrol, Dr. Odonnell consulted, appreciate recommendations. 06/18 still requiring vapotherm with 50% FiO2 and at times bipap. He confirms he wants to be DNR and does agree he may be interested in palliative care/hospice discussion if he continues to have difficulties. 06/19 CT done yesterday and showed 9 mm indeterminate mass, f/u in 3 months recommended. Continuing on bipap and vapotherm 06/20 down to 25% FiO2 on vapotherm this am, attempting to switch to nasal cannula today (5) Elevated troponin I level Status: Acute Assessment & Plan: Suspect related to pneumonia and COPD exacerbation. (6) Metabolic acidosis Status: Resolved Assessment & Plan: Secondary to renal insufficiency, improving. Bicarb given per Dr. Odonnell (7) DVT prophylaxis Status: Acute Assessment & Plan: Enoxaparin Clinical Quality Measures DVT/VTE Risk/Contraindication: Risk Factor Score Per Nursin RFS Level Per Nursing on Admit: 4+=Very High ILIA PERRY MD Jun 20, 2019 13:55
--- NOTE | 2019-06-20 14:24 | NUR ---
RESUMED CARE -- REPORT FROM VALERIE ELLIS
[2019-06-20 15:52] VITALS: BP 118/70
[2019-06-20 20:07] VITALS: BP 123/73
--- OUTSIDE RECORDS SUMMARY | 2019-06-20 23:34 | XMS REPORT ---
Author Author Edi Linda Doctor Organization [facility] Address Unknown Phone Unavailable Care Team Providers Care Web Search Evaluator Name Role Phone Migration, Doctor Unavailable Unavailable PROBLEMS Type Condition ICD9-CM Code [id number] Code Onset Dates Condition S tatus SNOMED Code Problem Chronic obstructive pulmonary disease, unspecified COPD ty pe J44.9 Active [id number] ALLERGIES Substance Reaction Event Type Date Status Penicillins Unknown Non Drug Allergy Aug, Active ENCOUNTERS Encounter Location Date Diagnosis [facility] [address] [facility] [id number] [address] [place] [phone] Oct, [facility] [address] [facility] [id number] [address] [place] [phone] Oct, [facility] [address] [facility] [id number] [address] [place] [phone] Oct, [address] [phone] Oct, [facility] [address] [facility] [id number] [address] [place] [phone] Oct, [facility] [address] [facility] [id number] [address] [place] [phone] Oct, [facility] [address] [facility] [id number] [address] [place] [phone] September, [facility] [address] [facility] [id number] [address] [place] [phone] September, Chronic obstructive pulmonar y disease, unspecified COPD type J44.9 [facility] [address] [facility] [id number] [address] [place] [phone] September, [facility] [address] [id number] [address] [place] [phone] Aug, Wheezing R06.2 and Acute res piratory distress R06.03 [facility] [address] [id number] [address] [place] [address], [place] [phone] 14 Aug, 2014 [facility] [address] [id number] [address] [place] [phone] Aug, [facility] [address] [id number] [address] [place] [address], [place] [phone] Aug, [facility] [address] [id number] [address] [place] [phone] Jun, [facility] [address] [id number] [address] [place] [address], [place] [phone] Jun, [facility] [address] [id number] [address] [place] [phone] May, [facility] [address] [id number] [address] [place] [phone] May, [facility] [address] [id number] [address] [place] [phone] Apr, [facility] [address] [id number] [address] [place] [phone] Apr, [facility] [address] [id number] [address] [place] [address], [place] [phone] Mar, [facility] [address] [id number] [address] [place] [phone] Mar, [facility] [address] [id number] [address] [place] [phone] Mar, [facility] [address] [id number] [address] [place] [phone] Mar, [facility] [address] [id number] [address] [place] [phone] Mar, [facility] [address] [id number] [address] [place] [phone] Mar, [facility] [address] [facility] [id number] [address] [place] [address] Mar, IMMUNIZATIONS No Known Immunizations SOCIAL HISTORY Never Assessed REASON FOR VISIT [facility] [place] VITAL SIGNS MEDICATIONS Unknown Medications RESULTS No Results PROCEDURES No Known procedures INSTRUCTIONS MEDICATIONS ADMINISTERED No Known Medications MEDICAL (GENERAL) HISTORY Type Description Date Medical History Other and unspecified hyperlipidemia Medical History Other and unspecified hyperlipidemia Medical History Nondependent tobacco use disorder Medical History 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
--- OUTSIDE RECORDS SUMMARY | 2019-06-20 23:35 | XMS REPORT | Continuity of Care Document ---
Author Organization Unknown Address Unknown Phone Unavailable Allergies Active Description Code Type Severity Reaction Onset Reported/Identified Relationship to Patient Clinical Status Yes Penicillins Drug Allergy 04/03/2012 Yes No Known Drug Allergies [id number] Drug Allergy Unknown N/A 09/09/2018 Yes Penicillins [id number] Drug Aller gy Unknown N/A 09/09/2018 Medications There is no data. Problems Date Dx Coded Attending Type Code Diagnosis Diagnosed By 04/03/2012 MIGUEL ANGEL RUIZ APRN 27 2.4 HYPERLIPIDEMIA 04/03/2012 MIGUEL ANGEL RUIZ APRN 30 5.1 TOBACCO ABUSE 04/03/2012 272.4 HYPE RLIPIDEMIA 04/03/2012 305.1 TOBA BDR ABUSE 04/03/2012 MIGUEL ANGEL RUIZ APRN 27 2.4 HYPERLIPIDEMIA 04/03/2012 MIGUEL ANGEL RUIZ APRN 30 5.1 TOBACCO ABUSE 04/03/2012 MIGUEL ANGEL RUIZ APRN 27 2.4 HYPERLIPIDEMIA 04/03/2012 MIGUEL ANGEL RUIZ APRN 30 5.1 TOBACCO ABUSE 04/03/2012 272.4 HYPE RLIPIDEMIA 04/03/2012 305.1 TOBA BDR ABUSE 05/08/2012 V76.44 PRO STATE CANCER SCREENING 05/08/2012 MIGUEL ANGEL RUIZ APRN V76.44 PROSTATE CANCER SCREENING 05/08/2012 MIGUEL ANGEL RUIZ APRN V76.44 PROSTATE CANCER SCREENING 05/08/2012 V76.44 PRO STATE CANCER SCREENING 05/17/2012 MIGUEL ANGEL RUIZ APRN 59 3.9 RENAL INSUFFICIENCY 05/17/2012 MIGUEL ANGEL RUIZ APRN 59 3.9 RENAL INSUFFICIENCY 05/17/2012 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 09/11/2018 ILIA PERRY MD, Ot A41 .9 SEPSIS, UNSPECIFIED ORGANISM 09/11/2018 ILIA PERRY MD, Ot J18 .1 LOBAR PNEUMONIA, UNSPECIFIED ORGANISM 09/11/2018 ILIA PERRY MD, Ot J44 .1 CHRONIC OBSTRUCTIVE PULMONARY DISEASE W 09/11/2018 ILIA PERRY MD, Ot J96.01 ACUTE RESPIRATORY FAILURE WITH HYPOXIA 09/11/2018 ILIA PERRY MD Ot N42 .9 DISORDER OF PROSTATE, UNSPECIFIED 09/11/2018 ILIA PERRY MD Ot R65.20 SEVERE SEPSIS WITHOUT SEPTIC SHOCK 09/11/2018 ILIA PERRY MD Ot R79.89 OTHER SPECIFIED ABNORMAL FINDINGS OF BLO 09/11/2018 ILIA PERRY MD Ot A41 .9 SEPSIS, UNSPECIFIED ORGANISM 09/11/2018 ILIA PERRY MD Ot E78 .5 HYPERLIPIDEMIA, UNSPECIFIED 09/11/2018 ILIA PERRY MD Ot F17.210 NICOTINE DEPENDENCE, CIGARETTES, UNCOMPL 09/11/2018 ILIA PERRY MD Ot I21.A1 MYOCARDIAL INFARCTION TYPE 2 09/11/2018 ILIA PERRY MD Ot J18 .1 LOBAR PNEUMONIA, UNSPECIFIED ORGANISM 09/11/2018 ILIA PERRY MD, Ot J44 .1 CHRONIC OBSTRUCTIVE PULMONARY DISEASE W 09/11/2018 ILIA PERRY MD, Ot J96.21 ACUTE AND CHRONIC RESPIRATORY FAILURE [place] 09/11/2018 ILIA PERRY MD Ot R65.20 SEVERE SEPSIS WITHOUT SEPTIC SHOCK 09/11/2018 ILIA PERRY MD Ot Z66 DO NOT RESUSCITATE 09/11/2018 ILIA PERRY MD Ot Z85.028 PERSONAL HISTORY OF OTHER MALIGNANT NEOP 09/11/2018 ILIA PERRY MD, Ot Z85.46 PERSONAL HISTORY OF MALIGNANT NEOPLASM O 09/11/2018 ILIA PERRY MD Ot Z86.73 PRSNL HX OF TIA (TIA), AND CEREB INFRC W 09/17/2018 ILIA PERRY MD Ot A41 .9 SEPSIS, UNSPECIFIED ORGANISM 09/17/2018 ILIA PERRY MD Ot E78 .5 HYPERLIPIDEMIA, UNSPECIFIED 09/17/2018 ILIA PERRY MD Ot F17.210 NICOTINE DEPENDENCE, CIGARETTES, UNCOMPL 09/17/2018 ILIA PERRY MD Ot I21.A1 MYOCARDIAL INFARCTION TYPE 2 09/17/2018 ILIA PERRY MD Ot J18 .1 LOBAR PNEUMONIA, UNSPECIFIED ORGANISM 09/17/2018 ORLANDOILIA MCKENZIE MD, Ot J44 .1 CHRONIC OBSTRUCTIVE PULMONARY DISEASE W 09/17/2018 ILIA [...] INFRC W 09/17/2018 ILIA PERRY MD Ot A41 .9 SEPSIS, UNSPECIFIED ORGANISM 09/17/2018 ILIA PERRY MD Ot E78 .5 HYPERLIPIDEMIA, UNSPECIFIED 09/17/2018 ILIA PERRY MD Ot F17.210 NICOTINE DEPENDENCE, CIGARETTES, UNCOMPL 09/17/2018 ILIA PERRY MD Ot I21.A1 MYOCARDIAL INFARCTION TYPE 2 09/17/2018 ILIA PERRY MD Ot J18 .1 LOBAR PNEUMONIA, UNSPECIFIED ORGANISM 09/17/2018 ILIA PERRY MD Ot J44 .1 CHRONIC OBSTRUCTIVE PULMONARY DISEASE W 09/17/2018 ILIA [...] INFRC W 09/18/2018 ILIA PERRY MD Ot A41 .9 SEPSIS, UNSPECIFIED ORGANISM 09/18/2018 ILIA PERRY MD Ot E78 .5 HYPERLIPIDEMIA, UNSPECIFIED 09/18/2018 ILIA PERRY MD Ot F17.210 NICOTINE DEPENDENCE, CIGARETTES, UNCOMPL 09/18/2018 ILIA PERRY MD Ot I21.A1 MYOCARDIAL INFARCTION TYPE 2 09/18/2018 ILIA PERRY MD Ot J18 .1 LOBAR PNEUMONIA, UNSPECIFIED ORGANISM 09/18/2018 ILIA PERRY MD Ot J44 .1 CHRONIC OBSTRUCTIVE PULMONARY DISEASE W 09/18/2018 ILIA [...] INFRC W 09/18/2018 ILIA PERRY MD Ot A41 .9 SEPSIS, UNSPECIFIED ORGANISM 09/18/2018 ILIA PERRY MD Ot E78 .5 HYPERLIPIDEMIA, UNSPECIFIED 09/18/2018 ILIA PERRY MD Ot F17.210 NICOTINE DEPENDENCE, CIGARETTES, UNCOMPL 09/18/2018 ILIA PERRY MD Ot I21.A1 MYOCARDIAL INFARCTION TYPE 2 09/18/2018 ILIA PERRY MD Ot J18 .1 LOBAR PNEUMONIA, UNSPECIFIED ORGANISM 09/18/2018 ILIA PERRY MD Ot J44 .1 CHRONIC OBSTRUCTIVE PULMONARY DISEASE W 09/18/2018 ILIA [...] OF MALIGNANT NEOPLASM O 09/18/2018 ILIA PERRY MD, Ot Z86.73 PRSNL HX OF TIA (TIA), AND CEREB INFRC W 09/24/2018 ILIA PERRY MD Ot A41 .9 SEPSIS, UNSPECIFIED ORGANISM 09/24/2018 ILIA PERRY MD Ot B37.81 CANDIDAL ESOPHAGITIS 09/24/2018 ILIA PERRY MD Ot D62 ACUTE POSTHEMORRHAGIC ANEMIA 09/24/2018 ILIA PERRY MD Ot E78 .5 HYPERLIPIDEMIA, UNSPECIFIED 09/24/2018 ILIA PERRY MD Ot E86 .0 DEHYDRATION 09/24/2018 ILIA EPRRY MD Ot E87 .2 ACIDOSIS 09/24/2018 ILIA PERRY MD Ot F17.210 NICOTINE DEPENDENCE, CIGARETTES, UNCOMPL 09/24/2018 ILIA PERRY MD Ot H91.13 PRESBYCUSIS, BILATERAL 09/24/2018 ILIA PERRY MD Ot I21.A1 MYOCARDIAL INFARCTION TYPE 2 09/24/2018 ILIA PERRY MD Ot I26.99 OTHER PULMONARY EMBOLISM WITHOUT ACUTE C 09/24/2018 ILIA PERRY MD Ot I50.31 ACUTE DIASTOLIC (CONGESTIVE) HEART FAILU 09/24/2018 ILIA PERRY MD, Ot J18 .1 LOBAR PNEUMONIA, UNSPECIFIED ORGANISM 09/24/2018 ILIA PERRY MD Ot J43 .9 EMPHYSEMA, UNSPECIFIED 09/24/2018 ILIA PERRY MD Ot J44 .1 CHRONIC OBSTRUCTIVE PULMONARY DISEASE W 09/24/2018 ILIA PERRY MD Ot J96.21 ACUTE AND CHRONIC RESPIRATORY FAILURE [place] 09/24/2018 ILIA PERRY MD Ot K21 .0 GASTRO-ESOPHAGEAL REFLUX DISEASE WITH ES 09/24/2018 ILIA PERRY MD Ot K29.70 GASTRITIS, UNSPECIFIED, WITHOUT BLEEDING 09/24/2018 ILIA PERRY MD Ot K44 .9 DIAPHRAGMATIC HERNIA WITHOUT OBSTRUCTION 09/24/2018 ILIA PERRY MD Ot R23 .3 SPONTANEOUS ECCHYMOSES 09/24/2018 ILIA PERRY MD Ot [...] AND CEREB INFRC W 10/31/2018 CALLIE ARMENDARIZ FACC, [facility] FACP CCDS Ot R06.02 SHORTNESS OF BREATH 10/31/2018 CALLIE ARMENDARIZ FACC, ALI FACP CCDS Ot Z72.0 TOBACCO USE 10/31/2018 CALLIE ARMENDARIZ FACC, ALI FACP CCDS Ot Z86.79 PERSONAL HISTORY OF OTHER DISEASES OF TH 11/05/2018 CALLIE ARMENDARIZ FACC, [facility] FACP CCDS Ot E78.5 HYPERLIPIDEMIA, UNSPECIFIED 11/05/2018 CALLIE ARMENDARIZ FACC, ALI FACP CCDS Ot I25.10 ATHSCL HEART DISEASE OF [place] CORONARY 11/05/2018 CALLIE ARMENDARIZ FACC, ALI FACP CCDS Ot 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 11/05/2018 CALLIE ARMENDARIZ FACC, ALI FACP CCDS Ot I50.9 HEART FAILURE, UNSPECIFIED 11/05/2018 CALLIE ARMENDARIZ FACC, ALI FACP CCDS Ot J44.9 CHRONIC OBSTRUCTIVE PULMONARY DISEASE, U 11/05/2018 CALLIE ARMENDARIZ FACC, ALI FACP CCDS Ot Z79.82 [facility] (CURRENT) USE OF ASPIRIN 11/05/2018 CALLIE ARMENDARIZ FACC, ALI FACP CCDS Ot Z79.899 OTHER CHIEF [employer] [facility] OR DEPARTMENT (CURRENT) DRUG THERAPY 11/05/2018 CALLIE ARMENDARIZ FACC, ALI FACP CCDS Ot Z85.028 PERSONAL HISTORY OF OTHER MALIGNANT NEOP 11/05/2018 CALLIE ARMENDARIZ FACC, ALI FACP CCDS Ot Z86.73 PRSNL HX OF TIA (TIA), AND CEREB INFRC W 11/05/2018 CALLIE ARMENDARIZ FACC, ALI FACP CCDS Ot Z87.891 PERSONAL HISTORY OF NICOTINE DEPENDENCE 11/07/2018 CALLIE ARMENDARIZ FACC, ALI FACP CCDS Ot R06.02 SHORTNESS OF BREATH 11/07/2018 CALLIE ARMENDARIZ FACC, ALI FACP CCDS Ot Z72.0 TOBACCO USE 11/07/2018 CALLIE ARMENDARIZ FACC, ALI FACP CCDS Ot Z86.79 PERSONAL HISTORY OF OTHER DISEASES OF TH 11/08/2018 CALLIE ARMENDARIZ FACC, [facility] FACP CCDS Ot E78.5 HYPERLIPIDEMIA, UNSPECIFIED 11/08/2018 CALLIE ARMENDARIZ FACC, ALI FACP CCDS Ot I25.10 ATHSCL HEART DISEASE OF [place] CORONARY 11/08/2018 CALLIE ARMENDARIZ FACC, ALI FACP CCDS Ot 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 11/08/2018 CALLIE ARMENDARIZ FACC, [facility] FACP CCDS Ot I50.9 HEART FAILURE, UNSPECIFIED 11/08/2018 CALLIE ARMENDARIZ FACC, ALI FACP CCDS Ot J44.9 CHRONIC OBSTRUCTIVE PULMONARY DISEASE, U 11/08/2018 CALLIE ARMENDARIZ FACC, ALI FACP CCDS Ot Z79.82 [facility] (CURRENT) USE OF ASPIRIN 11/08/2018 CALLIE ARMENDARIZ FACC, [facility] FACP CCDS Ot Z79.899 OTHER [facility] (CURRENT) DRUG THERAPY 11/08/2018 CALLIE ARMENDARIZ FACC, [facility] FACP CCDS Ot Z85.028 PERSONAL HISTORY OF OTHER MALIGNANT NEOP 11/08/2018 CALLIE ARMENDARIZ FACC, [facility] FACP CCDS Ot Z86.73 PRSNL HX OF TIA (TIA), AND CEREB INFRC W 11/08/2018 CALLIE ARMENDARIZ FACC, ALI FACP CCDS Ot Z87.891 PERSONAL HISTORY OF NICOTINE DEPENDENCE 11/12/2018 BENJAMIN CASON APRN Ot I25.10 ATHSCL HEART DISEASE OF [place] CORONARY 11/12/2018 BENJAMIN CASON APRN Ot J30.9 ALLERGIC RHINITIS, UNSPECIFIED 11/12/2018 BENJAMIN CASON PLANNING CONSULTANT Ot J44.9 CHRONIC OBSTRUCTIVE PULMONARY DISEASE, U 11/12/2018 BENJAMIN CASON PLANNING CONSULTANT Ot 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) 11/12/2018 BENJAMIN CASON APRN Ot Z72.0 TOBACCO USE 11/25/2018 CALLIE ARMENDARIZ FACC, [facility] FACP CCDS Ot R06.02 SHORTNESS OF BREATH 11/25/2018 CALLIE ARMENDARIZ FACC, [facility] FACP CCDS Ot Z72.0 TOBACCO USE 11/25/2018 CALLIE ARMENDARIZ FACC, [facility] FACP CCDS Ot Z86.79 PERSONAL HISTORY OF OTHER DISEASES OF 12/05/2018 BENJAMIN CASON PLANNING CONSULTANT Ot I25.10 ATHSCL HEART DISEASE OF [place] CORONARY 12/05/2018 BENJAMIN CASON PLANNING CONSULTANT Ot J30.9 ALLERGIC RHINITIS, UNSPECIFIED 12/05/2018 GELY CASONINE E PLANNING CONSULTANT Ot J44.9 CHRONIC OBSTRUCTIVE PULMONARY DISEASE, U 12/05/2018 GELY CASONINE [place] PLANNING CONSULTANT Ot 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) 12/05/2018 GELY CASONINE [place] PLANNING CONSULTANT Ot Z72.0 TOBACCO USE 02/27/2019 CALLIE ARMENDARIZ FACC, ALI FACP CCDS Ot R06.02 SHORTNESS OF BREATH 02/27/2019 CALLIE ARMENDARIZ FACC, ALI FACP CCDS Ot Z72.0 TOBACCO USE 02/27/2019 CALLIE ARMENDARIZ FACC, ALI FACP CCDS Ot Z86.79 PERSONAL HISTORY OF OTHER DISEASES OF 02/27/2019 BENJAMIN CASON PLANNING CONSULTANT Ot J30.9 ALLERGIC RHINITIS, UNSPECIFIED 02/27/2019 BENJAMIN CASON PLANNING CONSULTANT Ot J44.9 CHRONIC OBSTRUCTIVE PULMONARY DISEASE, U 02/27/2019 BENJAMIN CASON PLANNING CONSULTANT Ot Z72.0 TOBACCO USE 02/27/2019 GELY CASONINE E PLANNING CONSULTANT Ot I25.10 ATHSCL HEART DISEASE OF [place] CORONARY 02/27/2019 BENJAMIN CASON PLANNING CONSULTANT Ot J30.9 ALLERGIC RHINITIS, UNSPECIFIED 02/27/2019 BENJAMIN CASON PLANNING CONSULTANT Ot J44.9 CHRONIC OBSTRUCTIVE PULMONARY DISEASE, U 02/27/2019 BENJAMIN CASON PLANNING CONSULTANT Ot 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) 02/27/2019 BENJAMIN CASON PLANNING CONSULTANT Ot Z72.0 TOBACCO USE 02/27/2019 CALLIE ARMENDARIZ FACKwame, ALI FACP CCDS Ot R06.02 SHORTNESS OF BREATH 02/27/2019 CALLIE ARMENDARIZ FACKwame, ALI FACP CCDS Ot Z72.0 TOBACCO USE 02/27/2019 CALLIE ARMENDARIZ FACKwame, ALI FACP CCDS Ot Z86.79 PERSONAL HISTORY OF OTHER DISEASES OF 03/13/2019 BENJAMIN CASON PLANNING CONSULTANT Ot J30.9 ALLERGIC RHINITIS, UNSPECIFIED 03/13/2019 GELY CASONINE E PLANNING CONSULTANT Ot J44.9 CHRONIC OBSTRUCTIVE PULMONARY DISEASE, U 03/13/2019 GELY CASONINE [place] PLANNING CONSULTANT Ot Z72.0 TOBACCO USE 03/18/2019 CALLIE ARMENDARIZ [facility] CCDS Ot R06.02 SHORTNESS OF BREATH 03/18/2019 CALLIE ARMENDARIZ [facility] CCDS Ot Z72.0 TOBACCO USE 03/18/2019 CALLIE ARMENDARIZ [facility] FACP CCDS Ot Z86.79 PERSONAL HISTORY OF OTHER DISEASES OF TH 03/18/2019 GELY CASONINE [place] PLANNING CONSULTANT Ot J30.9 ALLERGIC RHINITIS, UNSPECIFIED 03/18/2019 YOAV BENJAMIN E PLANNING CONSULTANT Ot J44.9 CHRONIC OBSTRUCTIVE PULMONARY DISEASE, U 03/18/2019 YOAV BENJAMIN E PLANNING CONSULTANT Ot Z72.0 TOBACCO USE 03/18/2019 GELY CASONINE E PLANNING CONSULTANT Ot I25.10 ATHSCL HEART DISEASE OF [place] CORONARY 03/18/2019 GELY CASONINE E PLANNING CONSULTANT Ot J30.9 ALLERGIC RHINITIS, UNSPECIFIED 03/18/2019 GELY CASONINE E PLANNING CONSULTANT Ot J44.9 CHRONIC OBSTRUCTIVE PULMONARY DISEASE, U 03/18/2019 GELY CASONINE E PLANNING CONSULTANT Ot 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) 03/18/2019 GELY CASONINE E PLANNING CONSULTANT Ot Z72.0 TOBACCO USE 06/15/2019 CALLIE ARMENDARIZ [facility] CCDS Ot R06.02 SHORTNESS OF BREATH 06/15/2019 CALLIE ARMENDARIZ [facility] CCDS Ot Z72.0 TOBACCO USE 06/15/2019 CALLIE ARMENDARIZ [facility] CCDS Ot Z86.79 PERSONAL HISTORY OF OTHER DISEASES OF TH 06/15/2019 GELY CASONINE [place] PLANNING CONSULTANT Ot J30.9 ALLERGIC RHINITIS, UNSPECIFIED 06/15/2019 GELY CASONINE E PLANNING CONSULTANT Ot J44.9 CHRONIC OBSTRUCTIVE PULMONARY DISEASE, U 06/15/2019 GELY CASONINE E PLANNING CONSULTANT Ot Z72.0 TOBACCO USE 06/15/2019 GELY CASONINE E PLANNING CONSULTANT Ot I25.10 ATHSCL HEART DISEASE OF [place] CORONARY 06/15/2019 GELY CASONINE E PLANNING CONSULTANT Ot J30.9 ALLERGIC RHINITIS, UNSPECIFIED 06/15/2019 GELY CASONINE E PLANNING CONSULTANT Ot J44.9 CHRONIC OBSTRUCTIVE PULMONARY DISEASE, U 06/15/2019 BENJAMIN CASON APRN Ot 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) 06/15/2019 BENJAMIN CASON APRN Ot Z72.0 TOBACCO USE 06/19/2019 ILIA PERRY MD Ot A41 .9 SEPSIS, UNSPECIFIED ORGANISM 06/19/2019 ILIA PERRY MD Ot E78 .5 HYPERLIPIDEMIA, UNSPECIFIED 06/19/2019 ILIA PERRY MD Ot E87 .2 ACIDOSIS 06/19/2019 ILIA PERRY MD Ot F17.210 NICOTINE DEPENDENCE, CIGARETTES, UNCOMPL 06/19/2019 ILIA PERRY MD N Ot J18 .9 PNEUMONIA, UNSPECIFIED ORGANISM 06/19/2019 ILIA PERRY MD Ot J44 .0 CHR OBSTRUCTIVE PULMON DISEASE WITH (ACU 06/19/2019 ILIA PERRY MD N Ot N17 .9 ACUTE KIDNEY FAILURE, UNSPECIFIED 06/19/2019 ILIA PERRY MD Ot R65.20 SEVERE SEPSIS WITHOUT SEPTIC SHOCK 06/19/2019 ILIA PERRY MD N Ot R79.89 OTHER SPECIFIED ABNORMAL FINDINGS OF BLO 06/19/2019 ILIA PERRY MD N Ot Z85.46 PERSONAL HISTORY OF MALIGNANT NEOPLASM O 06/19/2019 ILIA PERRY MD Ot A41 .9 SEPSIS, UNSPECIFIED ORGANISM 06/19/2019 ILIA PERRY MD Ot E78 .5 HYPERLIPIDEMIA, UNSPECIFIED 06/19/2019 ILIA PERRY MD Ot E87 .2 ACIDOSIS 06/19/2019 ILIA PERRY MD Ot F17.210 NICOTINE DEPENDENCE, CIGARETTES, UNCOMPL 06/19/2019 ILIA PERRY MD N Ot J18 .9 PNEUMONIA, UNSPECIFIED ORGANISM 06/19/2019 ILIA PERRY MD N Ot J44 .0 CHR OBSTRUCTIVE PULMON DISEASE WITH (ACU 06/19/2019 ILIA PERRY MD Ot N17 .9 ACUTE KIDNEY FAILURE, UNSPECIFIED 06/19/2019 ILIA PERRY MD N Ot R65.20 SEVERE SEPSIS WITHOUT SEPTIC SHOCK 06/19/2019 ILIA PERRY MD N Ot R79.89 OTHER SPECIFIED ABNORMAL FINDINGS OF BLO 06/19/2019 ILIA PERRY MD N Ot Z85.46 PERSONAL HISTORY OF MALIGNANT NEOPLASM O 06/20/2019 ILIA PERRY MD Ot A41 .9 SEPSIS, UNSPECIFIED ORGANISM 06/20/2019 ILIA PERRY MD Ot E78 .5 HYPERLIPIDEMIA, UNSPECIFIED 06/20/2019 ILIA PERRY MD N Ot E87 .2 ACIDOSIS 06/20/2019 ILIA PERRY MD Ot F17.210 NICOTINE DEPENDENCE, CIGARETTES, UNCOMPL 06/20/2019 ILIA PERRY MD Ot J18 .9 PNEUMONIA, UNSPECIFIED ORGANISM 06/20/2019 ILIA PERRY MD N Ot J44 .0 CHR OBSTRUCTIVE PULMON DISEASE WITH (ACU 06/20/2019 ILIA PERRY MD Ot N17 .9 ACUTE KIDNEY FAILURE, UNSPECIFIED 06/20/2019 ILIA PERRY MD Ot R65.20 SEVERE SEPSIS WITHOUT SEPTIC SHOCK 06/20/2019 ILIA PERRY MD Ot R79.89 OTHER SPECIFIED ABNORMAL FINDINGS OF BLO 06/20/2019 ILIA PERRY MD Ot Z85.46 PERSONAL HISTORY OF MALIGNANT NEOPLASM O 06/20/2019 ILIA PERRY MD Ot A41 .9 SEPSIS, UNSPECIFIED ORGANISM 06/20/2019 ILIA PERRY MD Ot E78 .5 HYPERLIPIDEMIA, UNSPECIFIED 06/20/2019 ILIA PERRY MD Ot E87 .2 ACIDOSIS 06/20/2019 ILIA PERRY MD Ot F17.210 NICOTINE DEPENDENCE, CIGARETTES, UNCOMPL 06/20/2019 ILIA PERRY MD Ot J18 .9 PNEUMONIA, UNSPECIFIED ORGANISM 06/20/2019 ILIA PERRY MD Ot J44 .0 CHR OBSTRUCTIVE PULMON DISEASE WITH (ACU 06/20/2019 ILIA PERRY MD Ot N17 .9 ACUTE KIDNEY FAILURE, UNSPECIFIED 06/20/2019 ILIA PERRY MD Ot R65.20 SEVERE SEPSIS WITHOUT SEPTIC SHOCK 06/20/2019 ILIA PERRY MD Ot R79.89 OTHER SPECIFIED ABNORMAL FINDINGS OF BLO 06/20/2019 ILIA PERRY MD Ot Z85.46 PERSONAL HISTORY OF MALIGNANT NEOPLASM O Procedures Code Description [place] [address] ROUT INE VENIPUNCTURE 04/05/2012 63658 XRAY CHEST 2 VIEW 04/05/2012 77517 CMP 04/05/2012 59216 LIPI D PANEL 04/05/2012 72357 PSA FREE AND TOTAL 04/05/2012 50964 TSH 04/05/2012 87640 CBC 04/05/2012 88228 EKG, TRACING (IN-HOUSE) 04/05/2012 40227 SPIR OMETRY 05/17/2012 80889 BRON CHODILATION PRE/POST 05/17/2012 35451 RESP IRATORY FLOW VOLUME LOOP 05/17/2012 78215 ROUT INE VENIPUNCTURE 06/18/2012 [id number] GF R CALC (RESULT ONLY) 06/18/2012 96300 BMP 06/18/2012 [id number] EX CISION OF ESOPHAGOGASTRIC JUNCTION, EN 09/18/2018 [id number] EX CISION OF STOMACH, PYLORUS, ENDO, DIAG 09/18/2018 [id number] EX TRACTION OF ESOPHAGUS, ENDO, DIAGN 09/18/2018 [id number] IN SERTION OF INFUSION DEV INTO SUP VENA 06/15/2019 Results Test Result Range Complete blood count (CBC) with automate d white blood cell (WBC) differential - 09/09/18 19:52 Blood leukocytes automated count (number/volume) 16.3 10*3/uL 4.3-11.0 Blood erythrocytes automated count (number/volume) 4.69 10*6/uL 4.35-5.85 Venous blood hemoglobin measurement (mass/volume) 13.8 g/dL 13.3-17.7 Blood hematocrit (volume fraction) 42 % 40-54 Automated erythrocyte mean corpuscular volume 89 [ foz_us] 80-99 Automated erythrocyte mean corpuscular h emoglobin (mass per erythrocyte) 29 pg 25-34 Automated erythrocyte mean corpuscular h emoglobin concentration measurement (mass/volume) 33 g/dL 32-36 Automated erythrocyte distribution width ratio 15. 5 % 10.0- 14.5 Automated blood platelet count [...] 10*3 1.0-4.0 Blood monocytes automated count (number/volume) 1. 4 10*3 0.0-1.0 Automated eosinophil count 0.0 10*3/uL 0 .0-0.3 Automated blood basophil count (count/volume) 0.0 10*3/uL 0.0-0.1 PT panel in platelet poor plasma by coag ulation assay - 09/09/18 19:52 Prothrombin time (PT) in platelet poor plasma by coagu lation assay 14.5 s 12.2-14.7 INR in platelet poor plasma or blood by coagulation as say 1.1 0.8-1.4 Activated partial thromboplastin time (a PTT) in platelet poor plasma bycoagulation assay - 09/09/18 19:52 Activated partial thromboplastin time (a PTT) in platelet poor plasma bycoagulation assay 33 s 24-35 Blood lactic acid measurement (moles/vol ume) - 09/09/18 19:52 Blood lactic acid measurement (moles/volume) 1.89 mmol/L 0.50-2.00 Comprehensive metabolic panel - 09/09/18 19:52 Serum or plasma sodium measurement (moles/volume) 142 mmol/L 135-145 Serum or plasma potassium measurement (moles/volume) 4.0 mmol/L 3.6-5.0 Serum or plasma chloride measurement (moles/volume) 108 mmol/L 98-107 Carbon dioxide 18 mmol/L 21-32 Serum or plasma anion gap determination (moles/volume) 16 mmol/L 5-14 Serum or plasma urea nitrogen measurement (mass/volume ) 16 mg/dL 7-18 Serum or plasma creatinine measurement (mass/volume) 1.17 mg/dL 0.60-1.30 Serum or plasma urea nitrogen/creatinine mass ratio 14 NRG Serum or plasma creatinine measurement w ith calculation of estimated glomerular filtration rate > NRG Serum or plasma glucose measurement (mass/volume) 133 mg/dL 70-105 Serum or plasma calcium measurement (mass/volume) 9.7 mg/dL 8.5-10.1 Serum or plasma total bilirubin measurement (mass/volu me) 0.5 mg/dL 0.1-1.0 Serum or plasma alkaline phosphatase richar surement (enzymatic activity/volume) 59 U/L 40-136 Serum or plasma aspartate aminotransfera se measurement (enzymatic activity/volume) 26 U/L 5-34 Serum or plasma alanine aminotransferase measurement (enzymatic activity/volume) 20 U/L 0-55 Serum or plasma protein measurement (mass/volume) 7.6 g/dL 6.4-8.2 Serum or plasma albumin measurement (mass/volume) 3.7 g/dL 3.2-4.5 CALCIUM CORRECTED 9.9 mg/dL 8.5-10.1 Serum or plasma lithium measurement (mol es/volume) - 09/09/18 19:52 BNP level 75.7 pg/mL <100.0 Serum or plasma troponin i.cardiac measu rement (mass/volume) - 09/09/18 19:52 Serum or plasma troponin i.cardiac measurement (mass/v olume) 0.040 ng/mL <0.028 Blood manual differential performed dete ction - 09/09/18 19:52 Blood monocytes/100 leukocytes 8 % NRG Manual blood segmented neutrophils/100 leukocytes 75 % NRG Manual blood lymphocytes/100 leukocytes 17 % NR Blood erythrocyte morphology finding identification NORMAL [facility] Serum or plasma C reactive protein measu rement (mass/volume) - 09/09/18 19:52 Serum or plasma C reactive protein measurement (mass/v olume) 19.59 mg/dL 0.00-0.50 Bacterial blood culture - 09/09/18 19:52 QUANTITY OF GROWTH . [facility] Bacterial blood culture SEE COMMEN [facility] Influenza virus A and B antigen detectio n - 09/09/18 20:02 FLU RESULT NEGATIVE FOR INFLUENZA A AND B ANTIGENS BY IA [facility] Bacterial blood culture - 09/09/18 20:05 Bacterial blood culture NG [facility] Methicillin resistant Staphylococcus aur eus (MRSA) screening culture - 09/09/18 23:43 Methicillin resistant Staphylococcus aureus (MRSA) scr eening culture NEG [facility] Complete blood count (CBC) with automate d white blood cell (WBC) differential - 09/10/18 02:00 Blood leukocytes automated count (number/volume) 9.3 10*3/uL 4.3-11.0 Blood erythrocytes automated count (number/volume) 4.28 10*6/uL 4.35-5.85 Venous blood hemoglobin measurement (mass/volume) 12.8 g/dL 13.3-17.7 Blood hematocrit (volume fraction) 38 % 40-54 Automated erythrocyte mean corpuscular volume 89 [ foz_us] 80-99 Automated erythrocyte mean corpuscular h emoglobin (mass per erythrocyte) 30 pg 25-34 Automated erythrocyte mean corpuscular h emoglobin concentration measurement (mass/volume) 34 g/dL 32-36 Automated erythrocyte distribution width ratio 15. 3 % 10.0- 14.5 Automated blood platelet count [...] 10*3 1.0-4.0 Blood monocytes automated count (number/volume) 0. 1 10*3 0.0-1.0 Automated eosinophil count 0.0 10*3/uL 0 .0-0.3 Automated blood basophil count (count/volume) 0.0 10*3/uL 0.0-0.1 Comprehensive metabolic panel - 09/10/18 02:00 Serum or plasma sodium measurement (moles/volume) 142 mmol/L 135-145 Serum or plasma potassium measurement (moles/volume) 4.3 mmol/L 3.6-5.0 Serum or plasma chloride measurement (moles/volume) 110 mmol/L 98-107 Carbon dioxide 18 mmol/L 21-32 Serum or plasma anion gap determination (moles/volume) 14 mmol/L 5-14 Serum or plasma urea nitrogen measurement (mass/volume ) 17 mg/dL 7-18 Serum or plasma creatinine measurement (mass/volume) 1.05 mg/dL 0.60-1.30 Serum or plasma urea nitrogen/creatinine mass ratio 16 NRG Serum or plasma creatinine measurement w ith calculation of estimated glomerular filtration rate > NRG Serum or plasma glucose measurement (mass/volume) 132 mg/dL 70-105 Serum or plasma calcium measurement (mass/volume) 9.1 mg/dL 8.5-10.1 Serum or plasma total bilirubin measurement (mass/volu me) 0.4 mg/dL 0.1-1.0 Serum or plasma alkaline phosphatase richar surement (enzymatic activity/volume) 51 U/L 40-136 Serum or plasma aspartate aminotransfera se measurement (enzymatic activity/volume) 21 U/L 5-34 Serum or plasma alanine aminotransferase measurement (enzymatic activity/volume) 17 U/L 0-55 Serum or plasma protein measurement (mass/volume) 6.8 g/dL 6.4-8.2 Serum or plasma albumin measurement (mass/volume) 3.4 g/dL 3.2-4.5 CALCIUM CORRECTED 9.6 mg/dL 8.5-10.1 Serum or plasma phosphate measurement (m ass/volume) - 09/10/18 02:00 Serum or plasma phosphate measurement (mass/volume) 2.1 mg/dL 2.3-4.7 Magnesium - 09/10/18 02:00 Magnesium 1.9 mg/dL 1.8-2.4 Serum or plasma troponin i.cardiac measu rement (mass/volume) - 09/10/18 02:00 Serum or plasma troponin i.cardiac measurement (mass/v olume) 0.150 ng/mL <0.028 Arterial blood gas measurement - 9 06:25 Blood pCO2 33 mm[Hg] 35-45 Blood pO2 63 mm[Hg] 79-93 Arterial blood bicarbonate measurement (moles/volume) 18 mmol/L 23-27 Arterial blood base excess by calculation -6.6 mmo l/L -2.5-2.5 Arterial blood oxygen saturation measurement 94 % 94-100 * Inhaled oxygen flow rate 4L HIGH FLOW NRG Arterial blood pH measurement with patient temperature correction 7.35 7.37-7.43 Arterial blood carbon dioxide, total measurement (mole s/volume) 19.3 mmol/L 21.0-31.0 Body site R RAD NRG Assessment of wrist artery patency prior to arterial p uncture YES-POS NRG Setting of ventilation mode NO NR G Measurement of body temperature 96.3 NRG Serum or plasma troponin i.cardiac measu rement (mass/volume) - 09/10/18 06:31 Serum or plasma troponin i.cardiac measurement (mass/v olume) 0.125 ng/mL <0.028 Complete urinalysis with reflex to cultu re - 09/10/18 13:40 Urine color determination YELLOW NRG Urine clarity determination SLIGHTLY CLOUDY NRG Urine pH measurement by test strip 5 5-9 Specific gravity of urine by test strip 1.025 1.016-1.022 Urine protein assay by test strip, semi-quantitative 2+ NEGATIVE Urine glucose detection by automated test strip NE GATIVE NEGATIVE Erythrocytes detection in urine sediment by light micr oscopy 5+ NEGATIVE Urine ketones detection by automated test strip 3+ NEGATIVE Urine nitrite detection by test strip NEGATIVE NEGATIVE Urine total bilirubin detection by test strip NEGA TIVE NEGATIVE Urine urobilinogen measurement by automated test strip (mass/volume) NORMAL NORMAL Urine leukocyte esterase detection by dipstick NEG ATIVE NEGATIVE Automated urine sediment erythrocyte cou nt by microscopy (number/high power field) [HPF] NRG Automated urine sediment leukocyte count by microscopy (number/high power field) [HPF] NRG Bacteria detection in urine sediment by light microsco py FEW NRG Squamous epithelial cells detection in u rine sediment by light microscopy 0-2 NRG Crystals detection in urine sediment by light microsco py NONE NRG Casts detection in urine sediment by light microscopy PRESENT NRG Mucus detection in urine sediment by light microscopy NEGATIVE NRG Complete urinalysis with reflex to culture NO NRG Yeast detection in urine sediment by light microscopy FEW NRG Hyaline casts detection in urine sediment by light rm roscopy 2-5 NRG Renal epithelial cells detection in urin e sediment by light microscopy NONE NRG Complete blood count (CBC) with automate d white blood cell (WBC) differential - 09/11/18 03:35 Blood leukocytes automated count (number/volume) 17.4 10*3/uL 4.3-11.0 Blood erythrocytes automated count (number/volume) 4.05 10*6/uL 4.35-5.85 Venous blood hemoglobin measurement (mass/volume) 12.0 g/dL 13.3-17.7 Blood hematocrit (volume fraction) 37 % 40-54 Automated erythrocyte mean corpuscular volume 90 [ foz_us] 80-99 Automated erythrocyte mean corpuscular h emoglobin (mass per erythrocyte) 30 pg 25-34 Automated erythrocyte mean corpuscular h emoglobin concentration measurement (mass/volume) 33 g/dL 32-36 Automated erythrocyte distribution width ratio 15. 4 % 10.0- 14.5 Automated blood platelet count [...] 10*3 1.0-4.0 Blood monocytes automated count (number/volume) 1. 0 10*3 0.0-1.0 Automated eosinophil count 0.0 10*3/uL 0 .0-0.3 Automated blood basophil count (count/volume) 0.0 10*3/uL 0.0-0.1 Comprehensive metabolic panel - 09/11/18 03:35 Serum or plasma sodium measurement (moles/volume) 143 mmol/L 135-145 Serum or plasma potassium measurement (moles/volume) 3.6 mmol/L 3.6-5.0 Serum or plasma chloride measurement (moles/volume) 115 mmol/L 98-107 Carbon dioxide 14 mmol/L 21-32 Serum or plasma anion gap determination (moles/volume) 14 mmol/L 5-14 Serum or plasma urea nitrogen measurement (mass/volume ) 20 mg/dL 7-18 Serum or plasma creatinine measurement (mass/volume) 1.00 mg/dL 0.60-1.30 Serum or plasma urea nitrogen/creatinine mass ratio 20 NRG Serum or plasma creatinine measurement w ith calculation of estimated glomerular filtration rate > NRG Serum or plasma glucose measurement (mass/volume) 138 mg/dL 70-105 Serum or plasma calcium measurement (mass/volume) 8.4 mg/dL 8.5-10.1 Serum or plasma total bilirubin measurement (mass/volu me) 0.3 mg/dL 0.1-1.0 Serum or plasma alkaline phosphatase richar surement (enzymatic activity/volume) 48 U/L 40-136 Serum or plasma aspartate aminotransfera se measurement (enzymatic activity/volume) 31 U/L 5-34 Serum or plasma alanine aminotransferase measurement (enzymatic activity/volume) 18 U/L 0-55 Serum or plasma protein measurement (mass/volume) 6.1 g/dL 6.4-8.2 Serum or plasma albumin measurement (mass/volume) 3.1 g/dL 3.2-4.5 CALCIUM CORRECTED 9.1 mg/dL 8.5-10.1 Serum or plasma phosphate measurement (m ass/volume) - 09/11/18 03:35 Serum or plasma phosphate measurement (mass/volume) 3.4 mg/dL 2.3-4.7 Magnesium - 09/11/18 03:35 Magnesium 1.8 mg/dL 1.8-2.4 Complete blood count (CBC) with automate d white blood cell (WBC) differential - 09/12/18 03:45 Blood leukocytes automated count (number/volume) 16.9 10*3/uL 4.3-11.0 Blood erythrocytes automated count (number/volume) 4.20 10*6/uL 4.35-5.85 Venous blood hemoglobin measurement (mass/volume) 12.3 g/dL 13.3-17.7 Blood hematocrit (volume fraction) 37 % 40-54 Automated erythrocyte mean corpuscular volume 88 [ foz_us] 80-99 Automated erythrocyte mean corpuscular h emoglobin (mass per erythrocyte) 29 pg 25-34 Automated erythrocyte mean corpuscular h emoglobin concentration measurement (mass/volume) 33 g/dL 32-36 Automated erythrocyte distribution width ratio 15. 3 % 10.0- 14.5 Automated blood platelet count [...] 10*3 1.0-4.0 Blood monocytes automated count (number/volume) 0. 6 10*3 0.0-1.0 Automated eosinophil count 0.0 10*3/uL 0 .0-0.3 Automated blood basophil count (count/volume) 0.0 10*3/uL 0.0-0.1 Comprehensive metabolic panel - 09/12/18 03:45 Serum or plasma sodium measurement (moles/volume) 143 mmol/L 135-145 Serum or plasma potassium measurement (moles/volume) 3.4 mmol/L 3.6-5.0 Serum or plasma chloride measurement (moles/volume) 113 mmol/L 98-107 Carbon dioxide 17 mmol/L 21-32 Serum or plasma anion gap determination (moles/volume) 13 mmol/L 5-14 Serum or plasma urea nitrogen measurement (mass/volume ) 25 mg/dL 7-18 Serum or plasma creatinine measurement (mass/volume) 1.05 mg/dL 0.60-1.30 Serum or plasma urea nitrogen/creatinine mass ratio 24 NRG Serum or plasma creatinine measurement w ith calculation of estimated glomerular filtration rate > NRG Serum or plasma glucose measurement (mass/volume) 149 mg/dL 70-105 Serum or plasma calcium measurement (mass/volume) 8.8 mg/dL 8.5-10.1 Serum or plasma total bilirubin measurement (mass/volu me) 0.4 mg/dL 0.1-1.0 Serum or plasma alkaline phosphatase richar surement (enzymatic activity/volume) 55 U/L 40-136 Serum or plasma aspartate aminotransfera se measurement (enzymatic activity/volume) 36 U/L 5-34 Serum or plasma alanine aminotransferase measurement (enzymatic activity/volume) 29 U/L 0-55 Serum or plasma protein measurement (mass/volume) 6.0 g/dL 6.4-8.2 Serum or plasma albumin measurement (mass/volume) 3.1 g/dL 3.2-4.5 CALCIUM CORRECTED 9.5 mg/dL 8.5-10.1 Complete blood count (CBC) with automate d white blood cell (WBC) differential - 09/13/18 04:10 Blood leukocytes automated count (number/volume) 20.7 10*3/uL 4.3-11.0 Blood erythrocytes automated count (number/volume) 4.32 10*6/uL 4.35-5.85 Venous blood hemoglobin measurement (mass/volume) 12.9 g/dL 13.3-17.7 Blood hematocrit (volume fraction) 38 % 40-54 Automated erythrocyte mean corpuscular volume 87 [ foz_us] 80-99 Automated erythrocyte mean corpuscular h emoglobin (mass per erythrocyte) 30 pg 25-34 Automated erythrocyte mean corpuscular h emoglobin concentration measurement (mass/volume) 34 g/dL 32-36 Automated erythrocyte distribution width ratio 15. 1 % 10.0- 14.5 Automated blood platelet count [...] 10*3 1.0-4.0 Blood monocytes automated count (number/volume) 1. 2 10*3 0.0-1.0 Automated eosinophil count 0.0 10*3/uL 0 .0-0.3 Automated blood basophil count (count/volume) 0.0 10*3/uL 0.0-0.1 Comprehensive metabolic panel - 09/13/18 04:10 Serum or plasma sodium measurement (moles/volume) 141 mmol/L 135-145 Serum or plasma potassium measurement (moles/volume) 3.9 mmol/L 3.6-5.0 Serum or plasma chloride measurement (moles/volume) 111 mmol/L 98-107 Carbon dioxide 19 mmol/L 21-32 Serum or plasma anion gap determination (moles/volume) 11 mmol/L 5-14 Serum or plasma urea nitrogen measurement (mass/volume ) 30 mg/dL 7-18 Serum or plasma creatinine measurement (mass/volume) 1.03 mg/dL 0.60-1.30 Serum or plasma urea nitrogen/creatinine mass ratio 29 NRG Serum or plasma creatinine measurement w ith calculation of estimated glomerular filtration rate > NRG Serum or plasma glucose measurement (mass/volume) 145 mg/dL 70-105 Serum or plasma calcium measurement (mass/volume) 9.0 mg/dL 8.5-10.1 Serum or plasma total bilirubin measurement (mass/volu me) 0.4 mg/dL 0.1-1.0 Serum or plasma alkaline phosphatase richar surement (enzymatic activity/volume) 58 U/L 40-136 Serum or plasma aspartate aminotransfera se measurement (enzymatic activity/volume) 44 U/L 5-34 Serum or plasma alanine aminotransferase measurement (enzymatic activity/volume) 53 U/L 0-55 Serum or plasma protein measurement (mass/volume) 5.9 g/dL 6.4-8.2 Serum or plasma albumin measurement (mass/volume) 3.0 g/dL 3.2-4.5 CALCIUM CORRECTED 9.8 mg/dL 8.5-10.1 Blood manual differential performed dete ction - 09/13/18 04:10 Blood monocytes/100 leukocytes 5 % NRG Manual blood segmented neutrophils/100 leukocytes 85 % NRG Manual blood lymphocytes/100 leukocytes 10 % NRG Blood erythrocyte morphology finding identification NORMAL NRG Serum or plasma lithium measurement (mol es/volume) - 09/13/18 04:10 BNP level 189.6 pg/mL <100.0 Complete blood count (CBC) with automate d white blood cell (WBC) differential - 09/14/18 05:57 Blood leukocytes automated count (number/volume) 20.3 10*3/uL 4.3-11.0 Blood erythrocytes automated count (number/volume) 4.04 10*6/uL 4.35-5.85 Venous blood hemoglobin measurement (mass/volume) 11.8 g/dL 13.3-17.7 Blood hematocrit (volume fraction) 36 % 40-54 Automated erythrocyte mean corpuscular volume 88 [ foz_us] 80-99 Automated erythrocyte mean corpuscular h emoglobin (mass per erythrocyte) 29 pg 25-34 Automated erythrocyte mean corpuscular h emoglobin concentration measurement (mass/volume) 33 g/dL 32-36 Automated erythrocyte distribution width ratio 15. 0 % 10.0- 14.5 Automated blood platelet count [...] 10*3 1.0-4.0 Blood monocytes automated count (number/volume) 1. 5 10*3 0.0-1.0 Automated eosinophil count 0.0 10*3/uL 0 .0-0.3 Automated blood basophil count (count/volume) 0.0 10*3/uL 0.0-0.1 Comprehensive metabolic panel - 09/14/18 05:57 Serum or plasma sodium measurement (moles/volume) 139 mmol/L 135-145 Serum or plasma potassium measurement (moles/volume) 4.4 mmol/L 3.6-5.0 Serum or plasma chloride measurement (moles/volume) 110 mmol/L 98-107 Carbon dioxide 22 mmol/L 21-32 Serum or plasma anion gap determination (moles/volume) 7 mmol/L 5-14 Serum or plasma urea nitrogen measurement (mass/volume ) 29 mg/dL 7-18 Serum or plasma creatinine measurement (mass/volume) 0.87 mg/dL 0.60-1.30 Serum or plasma urea nitrogen/creatinine mass ratio 33 NRG Serum or plasma creatinine measurement w ith calculation of estimated glomerular filtration rate > NRG Serum or plasma glucose measurement (mass/volume) 131 mg/dL 70-105 Serum or plasma calcium measurement (mass/volume) 8.9 mg/dL 8.5-10.1 Serum or plasma total bilirubin measurement (mass/volu me) 0.4 mg/dL 0.1-1.0 Serum or plasma alkaline phosphatase richar surement (enzymatic activity/volume) 45 U/L 40-136 Serum or plasma aspartate aminotransfera se measurement (enzymatic activity/volume) 44 U/L 5-34 Serum [...] 5-14 Serum or plasma urea nitrogen measurement (mass/volume ) 31 mg/dL 7-18 Serum or plasma creatinine measurement (mass/volume) 0.92 mg/dL 0.60-1.30 Serum or plasma urea nitrogen/creatinine mass ratio 34 NRG Serum or plasma creatinine measurement w ith calculation of estimated glomerular filtration rate > NRG Serum or plasma glucose measurement (mass/volume) 144 mg/dL 70-105 Serum or plasma calcium measurement (mass/volume) 8.4 mg/dL 8.5-10.1 Serum or plasma total bilirubin measurement (mass/volu me) 0.4 mg/dL 0.1-1.0 Serum or plasma alkaline phosphatase richar surement (enzymatic activity/volume) 40 U/L 40-136 Serum or plasma aspartate aminotransfera se measurement (enzymatic activity/volume) 47 U/L 5-34 Serum or plasma alanine aminotransferase measurement (enzymatic activity/volume) 99 U/L 0-55 Serum or plasma protein measurement (mass/volume) 5.0 g/dL 6.4-8.2 Serum or plasma albumin measurement (mass/volume) 2.7 g/dL 3.2-4.5 CALCIUM CORRECTED 9.4 mg/dL 8.5-10.1 Complete blood count (CBC) with automate d white blood cell (WBC) differential - 09/15/18 05:17 Blood leukocytes automated count (number/volume) 22.2 10*3/uL 4.3-11.0 Blood erythrocytes automated count (number/volume) 4.02 10*6/uL 4.35-5.85 Venous blood hemoglobin measurement (mass/volume) 11.9 g/dL 13.3-17.7 Blood hematocrit (volume fraction) 35 % 40-54 Automated erythrocyte mean corpuscular volume 88 [ foz_us] 80-99 Automated erythrocyte mean corpuscular h emoglobin (mass per erythrocyte) 30 pg 25-34 Automated erythrocyte mean corpuscular h emoglobin concentration measurement (mass/volume) 34 g/dL 32-36 Automated erythrocyte distribution width ratio 14. 9 % 10.0- 14.5 Automated blood platelet count [...] 10*3 1.0-4.0 Blood monocytes automated count (number/volume) 1. 6 10*3 0.0-1.0 Automated eosinophil count 0.0 10*3/uL 0 .0-0.3 Automated blood basophil count (count/volume) 0.0 10*3/uL 0.0-0.1 Complete blood count (CBC) with automate d white blood cell (WBC) differential - 09/16/18 05:00 Blood leukocytes automated count (number/volume) 25.1 10*3/uL 4.3-11.0 Blood erythrocytes automated count (number/volume) 3.79 10*6/uL 4.35-5.85 Venous blood hemoglobin measurement (mass/volume) 11.2 g/dL 13.3-17.7 Blood hematocrit (volume fraction) 34 % 40-54 Automated erythrocyte mean corpuscular volume 88 [ foz_us] 80-99 Automated erythrocyte mean corpuscular h emoglobin (mass per erythrocyte) 30 pg 25-34 Automated erythrocyte mean corpuscular h emoglobin concentration measurement (mass/volume) 33 g/dL 32-36 Automated erythrocyte distribution width ratio 14. 8 % 10.0- 14.5 Automated blood platelet count [...] 10*3 1.0-4.0 Blood monocytes automated count (number/volume) 1. 6 10*3 0.0-1.0 Automated eosinophil count 0.0 10*3/uL 0 .0-0.3 Automated blood basophil count (count/volume) 0.0 10*3/uL 0.0-0.1 Comprehensive metabolic panel - 09/16/18 05:00 Serum or plasma sodium measurement (moles/volume) 140 mmol/L 135-145 Serum or plasma potassium measurement (moles/volume) 4.3 mmol/L 3.6-5.0 Serum or plasma chloride measurement (moles/volume) 109 mmol/L 98-107 Carbon dioxide 23 mmol/L 21-32 Serum or plasma anion gap determination (moles/volume) 8 mmol/L 5-14 Serum or plasma urea nitrogen measurement (mass/volume ) 29 mg/dL 7-18 Serum or plasma creatinine measurement (mass/volume) 0.94 mg/dL 0.60-1.30 Serum or plasma urea nitrogen/creatinine mass ratio 31 NRG Serum or plasma creatinine measurement w ith calculation of estimated glomerular filtration rate > NRG Serum or plasma glucose measurement (mass/volume) 146 mg/dL 70-105 Serum or plasma calcium measurement (mass/volume) 8.6 mg/dL 8.5-10.1 Serum or plasma total bilirubin measurement (mass/volu me) 0.3 mg/dL 0.1-1.0 Serum or plasma alkaline phosphatase richar surement (enzymatic activity/volume) 37 U/L 40-136 Serum or plasma aspartate aminotransfera se measurement (enzymatic activity/volume) 57 U/L 5-34 Serum or plasma alanine aminotransferase measurement (enzymatic activity/volume) 132 U/L 0-55 Serum or plasma protein measurement (mass/volume) 4.7 g/dL 6.4-8.2 Serum or plasma albumin measurement (mass/volume) 2.6 g/dL 3.2-4.5 CALCIUM CORRECTED 9.7 mg/dL 8.5-10.1 Complete blood count (CBC) with automate d white blood cell (WBC) differential - 09/17/18 04:55 Blood leukocytes automated count (number/volume) 31.0 10*3/uL 4.3-11.0 Blood erythrocytes automated count (number/volume) 3.29 10*6/uL 4.35-5.85 Venous blood hemoglobin measurement (mass/volume) 9.9 g/dL 13.3-17.7 Blood hematocrit (volume fraction) 29 % 40-54 Automated erythrocyte mean corpuscular volume 89 [ foz_us] 80-99 Automated erythrocyte mean corpuscular h emoglobin (mass per erythrocyte) 30 pg 25-34 Automated erythrocyte mean corpuscular h emoglobin concentration measurement (mass/volume) 34 g/dL 32-36 Automated erythrocyte distribution width ratio 14. 8 % 10.0- 14.5 Automated blood platelet count [...] 10*3 1.0-4.0 Blood monocytes automated count (number/volume) 2. 2 10*3 0.0-1.0 Automated eosinophil count 0.0 10*3/uL 0 .0-0.3 Automated blood basophil count (count/volume) 0.0 10*3/uL 0.0-0.1 Comprehensive metabolic panel - 09/17/18 04:55 Serum or plasma sodium measurement (moles/volume) 137 mmol/L 135-145 Serum or plasma potassium measurement (moles/volume) 4.2 mmol/L 3.6-5.0 Serum or plasma chloride measurement (moles/volume) 105 mmol/L 98-107 Carbon dioxide 23 mmol/L 21-32 Serum or plasma anion gap determination (moles/volume) 9 mmol/L 5-14 Serum or plasma urea nitrogen measurement (mass/volume ) 33 mg/dL 7-18 Serum or plasma creatinine measurement (mass/volume) 1.01 mg/dL 0.60-1.30 Serum or plasma urea nitrogen/creatinine mass ratio 33 NRG Serum or plasma creatinine measurement w ith calculation of estimated glomerular filtration rate > NRG Serum or plasma glucose measurement (mass/volume) 144 mg/dL 70-105 Serum or plasma calcium measurement (mass/volume) 8.4 mg/dL 8.5-10.1 Serum or plasma total bilirubin measurement (mass/volu me) 0.4 mg/dL 0.1-1.0 Serum or plasma alkaline phosphatase richar surement (enzymatic activity/volume) 44 U/L 40-136 Serum or plasma aspartate aminotransfera se measurement (enzymatic activity/volume) 40 U/L 5-34 Serum or plasma alanine aminotransferase measurement (enzymatic activity/volume) 122 U/L 0-55 Serum or plasma protein measurement (mass/volume) 4.9 g/dL 6.4-8.2 Serum or plasma albumin measurement (mass/volume) 2.7 g/dL 3.2-4.5 CALCIUM CORRECTED 9.4 mg/dL 8.5-10.1 Magnesium - 09/17/18 04:55 Magnesium 2.2 mg/dL 1.8-2.4 Blood manual differential performed dete ction - 09/17/18 04:55 Blood monocytes/100 leukocytes 2 % NRG Manual blood segmented neutrophils/100 leukocytes 86 % NRG Blood band neutrophils/100 leukocytes 4 % NRG Manual blood lymphocytes/100 leukocytes 8 % NRG Blood erythrocyte morphology finding identification NORMAL NRG Serum or plasma lithium measurement (mol es/volume) - 09/17/18 04:55 BNP level 37.1 pg/mL <100.0 Complete blood count (CBC) with automate d white blood cell (WBC) differential - 09/18/18 04:50 Blood leukocytes automated count (number/volume) 39.4 10*3/uL 4.3-11.0 Blood erythrocytes automated count (number/volume) 2.37 10*6/uL 4.35-5.85 Venous blood hemoglobin measurement (mass/volume) 7.2 g/dL 13.3-17.7 Blood hematocrit (volume fraction) 21 % 40-54 Automated erythrocyte mean corpuscular volume 90 [ foz_us] 80-99 Automated erythrocyte mean corpuscular h emoglobin (mass per erythrocyte) 30 pg 25-34 Automated erythrocyte mean corpuscular h emoglobin concentration measurement (mass/volume) 34 g/dL 32-36 Automated erythrocyte distribution width ratio 14. 8 % 10.0- 14.5 Automated blood platelet count [...] 10*3 1.0-4.0 Blood monocytes automated count (number/volume) 5. 1 10*3 0.0-1.0 Automated eosinophil count 0.0 10*3/uL 0 .0-0.3 Automated blood basophil count (count/volume) 0.0 10*3/uL 0.0-0.1 Comprehensive metabolic panel - 09/18/18 04:50 Serum or plasma sodium measurement (moles/volume) 139 mmol/L 135-145 Serum or plasma potassium measurement (moles/volume) 4.2 mmol/L 3.6-5.0 Serum or plasma chloride measurement (moles/volume) 105 mmol/L 98-107 Carbon dioxide 25 mmol/L 21-32 Serum or plasma anion gap determination (moles/volume) 9 mmol/L 5-14 Serum or plasma urea nitrogen measurement (mass/volume ) 51 mg/dL 7-18 Serum or plasma creatinine measurement (mass/volume) 1.25 mg/dL 0.60-1.30 Serum or plasma urea nitrogen/creatinine mass ratio 41 NRG Serum or plasma creatinine measurement w ith calculation of estimated glomerular filtration rate 56 NRG Serum or plasma glucose measurement (mass/volume) 150 mg/dL 70-105 Serum or plasma calcium measurement (mass/volume) 8.4 mg/dL 8.5-10.1 Serum or plasma total bilirubin measurement (mass/volu me) 0.3 mg/dL 0.1-1.0 Serum or plasma alkaline phosphatase richar surement (enzymatic activity/volume) 31 U/L 40-136 Serum or plasma aspartate aminotransfera se measurement (enzymatic activity/volume) 31 U/L 5-34 Serum or plasma alanine aminotransferase measurement (enzymatic activity/volume) 111 U/L 0-55 Serum or plasma protein measurement (mass/volume) 4.2 g/dL 6.4-8.2 Serum or plasma albumin measurement (mass/volume) 2.5 g/dL 3.2-4.5 CALCIUM CORRECTED 9.6 mg/dL 8.5-10.1 RED CELLS LEUKO REDUCED AS1 - 09/18/18 0 9:00 RED CELLS LEUKO REDUCED AS1 T RANSFUSED 09/18/18 [id number] NRG Blood type T Indirect antibody screen pa richard - 09/18/18 09:00 ABO+Rh group AP NRG Transfusion band number [id number] NRG Blood group antibody screen NEGATIVE NR G Fungus culture - 09/18/18 13:10 QUANTITY OF GROWTH Many NRG FTX;REPORTABLE ID REPORTED BY L 09/20/18 16:05 NRG Fungus culture [id number] NRG Note: Martine krusei is innately resistant to fluconazole NRG CAP REFERENCE (Reference: CAP Final Criti que 2007 F1-B p.10) NRG Complete urinalysis with reflex to cultu re - 09/18/18 15:25 Urine color determination YELLOW NRG Urine clarity determination SLIGHTLY CLOUDY NRG Urine pH measurement by test strip 5 5-9 Specific gravity of urine by test strip 1.010 1.016-1.022 Urine protein assay by test strip, semi-quantitative 2+ NEGATIVE Urine glucose detection by automated test strip NE GATIVE NEGATIVE Erythrocytes detection in urine sediment by light micr oscopy 1+ NEGATIVE Urine ketones detection by automated test strip NE GATIVE NEGATIVE Urine nitrite detection by test strip NEGATIVE NEGATIVE Urine total bilirubin detection by test strip NEGA TIVE NEGATIVE Urine urobilinogen measurement by automated test strip (mass/volume) NORMAL NORMAL Urine leukocyte esterase detection by dipstick NEG ATIVE NEGATIVE Automated urine sediment erythrocyte cou nt by microscopy (number/high power field) RARE NRG Automated urine sediment leukocyte count by microscopy (number/high power field) [HPF] NRG Bacteria detection in urine sediment by light microsco py NEGATIVE NRG Crystals detection in urine sediment by light microsco py NONE NRG Casts detection in urine sediment by light microscopy PRESENT NRG Mucus detection in urine sediment by light microscopy NEGATIVE NRG Complete urinalysis with reflex to culture NO NRG Hyaline casts detection in urine sediment by light rm roscopy 2-5 NRG Complete blood count (CBC) with automate d white blood cell (WBC) differential - 09/19/18 06:45 Blood leukocytes automated count (number/volume) 30.1 10*3/uL 4.3-11.0 Blood erythrocytes automated count (number/volume) 2.20 10*6/uL 4.35-5.85 Venous blood hemoglobin measurement (mass/volume) 6.4 g/dL 13.3-17.7 Blood hematocrit (volume fraction) 20 % 40-54 Automated erythrocyte mean corpuscular volume 89 [ foz_us] 80-99 Automated erythrocyte mean corpuscular h emoglobin (mass per erythrocyte) 29 pg 25-34 Automated erythrocyte mean corpuscular h emoglobin concentration measurement (mass/volume) 33 g/dL 32-36 Automated erythrocyte distribution width ratio 15. 5 % 10.0- 14.5 Automated blood platelet count [...] 10*3 1.0-4.0 Blood monocytes automated count (number/volume) 2. 6 10*3 0.0-1.0 Automated eosinophil count 0.0 10*3/uL 0 .0-0.3 Automated blood basophil count (count/volume) 0.0 10*3/uL 0.0-0.1 Comprehensive metabolic panel - 09/19/18 06:45 Serum or plasma sodium measurement (moles/volume) 140 mmol/L 135-145 Serum or plasma potassium measurement (moles/volume) 3.8 mmol/L 3.6-5.0 Serum or plasma chloride measurement (moles/volume) 110 mmol/L 98-107 Carbon dioxide 24 mmol/L 21-32 Serum or plasma anion gap determination (moles/volume) 6 mmol/L 5-14 Serum or plasma urea nitrogen measurement (mass/volume ) 46 mg/dL 7-18 Serum or plasma creatinine measurement (mass/volume) 1.18 mg/dL 0.60-1.30 Serum or plasma urea nitrogen/creatinine mass ratio 39 NRG Serum or plasma creatinine measurement w ith calculation of estimated glomerular filtration rate 60 NRG Serum or plasma glucose measurement (mass/volume) 129 mg/dL 70-105 Serum or plasma calcium measurement (mass/volume) 7.9 mg/dL 8.5-10.1 Serum or plasma total bilirubin measurement (mass/volu me) 0.3 mg/dL 0.1-1.0 Serum or plasma alkaline phosphatase richar surement (enzymatic activity/volume) 28 U/L 40-136 Serum or plasma aspartate aminotransfera se measurement (enzymatic activity/volume) 18 U/L 5-34 Serum or plasma alanine aminotransferase measurement (enzymatic activity/volume) 65 U/L 0-55 Serum or plasma protein measurement (mass/volume) 3.7 g/dL 6.4-8.2 Serum or plasma albumin measurement (mass/volume) 2.2 g/dL 3.2-4.5 CALCIUM CORRECTED 9.3 mg/dL 8.5-10.1 Complete blood count (CBC) with automate d white blood cell (WBC) differential - 09/20/18 06:43 Blood leukocytes automated count (number/volume) 18.7 10*3/uL 4.3-11.0 Blood erythrocytes automated count (number/volume) 2.92 10*6/uL 4.35-5.85 Venous blood hemoglobin measurement (mass/volume) 8.9 g/dL 13.3-17.7 Blood hematocrit (volume fraction) 26 % 40-54 Automated erythrocyte mean corpuscular volume 87 [ foz_us] 80-99 Automated erythrocyte mean corpuscular h emoglobin (mass per erythrocyte) 30 pg 25-34 Automated erythrocyte mean corpuscular h emoglobin concentration measurement (mass/volume) 35 g/dL 32-36 Automated erythrocyte distribution width ratio 15. 0 % 10.0- 14.5 Automated blood platelet count [...] 10*3 1.0-4.0 Blood monocytes automated count (number/volume) 2. 1 10*3 0.0-1.0 Automated eosinophil count 0.1 10*3/uL 0 .0-0.3 Automated blood basophil count (count/volume) 0.0 10*3/uL 0.0-0.1 Comprehensive metabolic panel - 09/20/18 06:43 Serum or plasma sodium measurement (moles/volume) 143 mmol/L 135-145 Serum or plasma potassium measurement (moles/volume) 4.0 mmol/L 3.6-5.0 Serum or plasma chloride measurement (moles/volume) 111 mmol/L 98-107 Carbon dioxide 25 mmol/L 21-32 Serum or plasma anion gap determination (moles/volume) 7 mmol/L 5-14 Serum or plasma urea nitrogen measurement (mass/volume ) 31 mg/dL 7-18 Serum or plasma creatinine measurement (mass/volume) 1.04 mg/dL 0.60-1.30 Serum or plasma urea nitrogen/creatinine mass ratio 30 NRG Serum or plasma creatinine measurement w ith calculation of estimated glomerular filtration rate > NRG Serum or plasma glucose measurement (mass/volume) 103 mg/dL 70-105 Serum or plasma calcium measurement (mass/volume) 7.9 mg/dL 8.5-10.1 Serum or plasma total bilirubin measurement (mass/volu me) 0.5 mg/dL 0.1-1.0 Serum or plasma alkaline phosphatase richar surement (enzymatic activity/volume) 30 U/L 40-136 Serum or plasma aspartate aminotransfera se measurement (enzymatic activity/volume) 19 U/L 5-34 Serum or plasma alanine aminotransferase measurement (enzymatic activity/volume) 47 U/L 0-55 Serum or plasma protein measurement (mass/volume) 3.9 g/dL 6.4-8.2 Serum or plasma albumin measurement (mass/volume) 2.2 g/dL 3.2-4.5 CALCIUM CORRECTED 9.3 mg/dL 8.5-10.1 Complete blood count (CBC) with automate d white blood cell (WBC) differential - 09/21/18 06:31 Blood leukocytes automated count (number/volume) 17.6 10*3/uL 4.3-11.0 Blood erythrocytes automated count (number/volume) 2.82 10*6/uL 4.35-5.85 Venous blood hemoglobin measurement (mass/volume) 8.5 g/dL 13.3-17.7 Blood hematocrit (volume fraction) 26 % 40-54 Automated erythrocyte mean corpuscular volume 90 [ foz_us] 80-99 Automated erythrocyte mean corpuscular h emoglobin (mass per erythrocyte) 30 pg 25-34 Automated erythrocyte mean corpuscular h emoglobin concentration measurement (mass/volume) 33 g/dL 32-36 Automated erythrocyte distribution width ratio 15. 9 % 10.0- 14.5 Automated blood platelet count [...] 10*3 1.0-4.0 Blood monocytes automated count (number/volume) 2. 0 10*3 0.0-1.0 Automated eosinophil count 0.2 10*3/uL 0 .0-0.3 Automated blood basophil count (count/volume) 0.0 10*3/uL 0.0-0.1 Comprehensive metabolic panel - 09/21/18 06:31 Serum or plasma sodium measurement (moles/volume) 140 mmol/L 135-145 Serum or plasma potassium measurement (moles/volume) 3.8 mmol/L 3.6-5.0 Serum or plasma chloride measurement (moles/volume) 109 mmol/L 98-107 Carbon dioxide 25 mmol/L 21-32 Serum or plasma anion gap determination (moles/volume) 6 mmol/L 5-14 Serum or plasma urea nitrogen measurement (mass/volume ) 22 mg/dL 7-18 Serum or plasma creatinine measurement (mass/volume) 0.92 mg/dL 0.60-1.30 Serum or plasma urea nitrogen/creatinine mass ratio 24 NRG Serum or plasma creatinine measurement w ith calculation of estimated glomerular filtration rate > NRG Serum or plasma glucose measurement (mass/volume) 96 mg/dL 70-105 Serum or plasma calcium measurement (mass/volume) 7.8 mg/dL 8.5-10.1 Serum or plasma total bilirubin measurement (mass/volu me) 0.6 mg/dL 0.1-1.0 Serum or plasma alkaline phosphatase richar surement (enzymatic activity/volume) 25 U/L 40-136 Serum or plasma aspartate aminotransfera se measurement (enzymatic activity/volume) 17 U/L 5-34 Serum or plasma alanine aminotransferase measurement (enzymatic activity/volume) 40 U/L 0-55 Serum or plasma protein measurement (mass/volume) 4.1 g/dL 6.4-8.2 Serum or plasma albumin measurement (mass/volume) 2.3 g/dL 3.2-4.5 CALCIUM CORRECTED 9.2 mg/dL 8.5-10.1 Automated blood complete blood count ( mogram) panel - 09/24/18 05:55 Blood leukocytes automated count (number/volume) 13.0 10*3/uL 4.3-11.0 Blood erythrocytes automated count (number/volume) 3.16 10*6/uL 4.35-5.85 Venous blood hemoglobin measurement (mass/volume) 9.6 g/dL 13.3-17.7 Blood hematocrit (volume fraction) 29 % 40-54 Automated erythrocyte mean corpuscular volume 90 [ foz_us] 80-99 Automated erythrocyte mean corpuscular h emoglobin (mass per erythrocyte) 30 pg 25-34 Automated erythrocyte mean corpuscular h emoglobin concentration measurement (mass/volume) 34 g/dL 32-36 Automated erythrocyte distribution width ratio 14. 7 % 10.0- 14.5 Automated blood platelet count (count/volume) 346 10*3/uL 130-400 Automated blood platelet mean volume measurement 8.7 [foz_us] 7.4-10.4 Whole blood basic metabolic panel - 09/11 08/30 05:55 Serum or plasma sodium measurement (moles/volume) 138 mmol/L 135-145 Serum or plasma potassium measurement (moles/volume) 3.8 mmol/L 3.6-5.0 Serum or plasma chloride measurement (moles/volume) 102 mmol/L 98-107 Carbon dioxide 28 mmol/L 21-32 Serum or plasma anion gap determination (moles/volume) 8 mmol/L 5-14 Serum or plasma urea nitrogen measurement (mass/volume ) 18 mg/dL 7-18 Serum or plasma creatinine measurement (mass/volume) 0.97 mg/dL 0.60-1.30 Serum or plasma urea nitrogen/creatinine mass ratio 19 NRG Serum or plasma creatinine measurement w ith calculation of estimated glomerular filtration rate > NRG Serum or plasma glucose measurement (mass/volume) 98 mg/dL 70-105 Serum or plasma calcium measurement (mass/volume) 8.3 mg/dL 8.5-10.1 Magnesium - 09/24/18 05:55 Magnesium 1.7 mg/dL 1.8-2.4 Automated blood complete blood count (he mogram) panel - 11/05/18 10:58 Blood leukocytes automated count (number/volume) 9.4 10*3/uL 4.3-11.0 Blood erythrocytes automated count (number/volume) 4.84 10*6/uL 4.35-5.85 Venous blood hemoglobin measurement (mass/volume) 14.5 g/dL 13.3-17.7 Blood hematocrit (volume fraction) 44 % 40-54 Automated erythrocyte mean corpuscular volume 92 [ foz_us] 80-99 Automated erythrocyte mean corpuscular h emoglobin (mass per erythrocyte) 30 pg 25-34 Automated erythrocyte mean corpuscular h emoglobin concentration measurement (mass/volume) 33 g/dL 32-36 Automated erythrocyte distribution width ratio 14. 7 % 10.0- 14.5 Automated blood platelet count (count/volume) 294 10*3/uL 130-400 Automated blood platelet mean volume measurement 8.9 [foz_us] 7.4-10.4 PT panel in platelet poor plasma by coag ulation assay - 11/05/18 10:58 Prothrombin time (PT) in platelet poor plasma by coagu lation assay 12.9 s 12.2-14.7 INR in platelet poor plasma or blood by coagulation as say 0.9 0.8-1.4 Activated partial thromboplastin time (a PTT) in platelet poor plasma bycoagulation assay - 11/05/18 10:58 Activated partial thromboplastin time (a PTT) in platelet poor plasma bycoagulation assay 36 s 24-35 Comprehensive metabolic panel - 11/05/18 10:58 Serum or plasma sodium measurement (moles/volume) 141 mmol/L 135-145 Serum or plasma potassium measurement (moles/volume) 4.4 mmol/L 3.6-5.0 Serum or plasma chloride measurement (moles/volume) 103 mmol/L 98-107 Carbon dioxide 25 mmol/L 21-32 Serum or plasma anion gap determination (moles/volume) 13 mmol/L 5-14 Serum or plasma urea nitrogen measurement (mass/volume ) 23 mg/dL 7-18 Serum or plasma creatinine measurement (mass/volume) 1.52 mg/dL 0.60-1.30 Serum or plasma urea nitrogen/creatinine mass ratio 15 NRG Serum or plasma creatinine measurement w ith calculation of estimated glomerular filtration rate 45 NRG Serum or plasma glucose measurement (mass/volume) 91 mg/dL 70-105 Serum or plasma calcium measurement (mass/volume) 10.4 mg/dL 8.5-10.1 Serum or plasma total bilirubin measurement (mass/volu me) 0.5 mg/dL 0.1-1.0 Serum or plasma alkaline phosphatase richar surement (enzymatic activity/volume) 42 U/L 40-136 Serum or plasma aspartate aminotransfera se measurement (enzymatic activity/volume) 17 U/L 5-34 Serum or plasma alanine aminotransferase measurement (enzymatic activity/volume) 18 U/L 0-55 Serum or plasma protein measurement (mass/volume) 7.4 g/dL 6.4-8.2 Serum or plasma albumin measurement (mass/volume) 4.0 g/dL 3.2-4.5 CALCIUM CORRECTED 10.4 mg/dL 8.5-10.1 Lipid 1996 panel - 11/05/18 10:58 Serum or plasma triglyceride measurement (mass/volume) 138 mg/dL <150 Serum or plasma cholesterol measurement (mass/volume) 227 mg/dL < 200 Serum or plasma cholesterol in HDL measurement (mass/v olume) 48 mg/dL 40-60 Cholesterol in LDL [mass/volume] in serum or plasma by direct assay 152 mg/dL 1-129 Serum or plasma cholesterol in VLDL measurement (mass/ volume) 28 mg/dL 5-40 Methicillin resistant Staphylococcus aur eus (MRSA) screening culture - 11/05/18 10:58 Methicillin resistant Staphylococcus aureus (MRSA) scr eening culture NEG NRG Complete blood count (CBC) with automate d white blood cell (WBC) differential - 06/15/19 09:10 Blood leukocytes automated count (number/volume) 13.9 10*3/uL 4.3-11.0 Blood erythrocytes automated count (number/volume) 4.91 10*6/uL 4.35-5.85 Venous blood hemoglobin measurement (mass/volume) 14.3 g/dL 13.3-17.7 Blood hematocrit (volume fraction) 43 % 40-54 Automated erythrocyte mean corpuscular volume 88 [ foz_us] 80-99 Automated erythrocyte mean corpuscular h emoglobin (mass per erythrocyte) 29 pg 25-34 Automated erythrocyte mean corpuscular h emoglobin concentration measurement (mass/volume) 33 g/dL 32-36 Automated erythrocyte distribution width ratio 15. 7 % 10.0- 14.5 Automated blood platelet count (count/volume) 266 10*3/uL 130-400 Automated blood platelet mean volume measurement 9.6 [foz_us] 7.4-10.4 Automated blood neutrophils/100 leukocytes 69 % 42-75 Automated blood lymphocytes/100 leukocytes 23 % 12-44 Blood monocytes/100 leukocytes 8 % 0-12 Automated blood eosinophils/100 leukocytes 0 % 0-10 Automated blood basophils/100 leukocytes 0 % 0-10 Blood neutrophils automated count (number/volume) 9.6 10*3 1.8-7.8 Blood lymphocytes automated count (number/volume) 3.1 10*3 1.0-4.0 Blood monocytes automated count (number/volume) 1. 2 10*3 0.0-1.0 Automated eosinophil count 0.0 10*3/uL 0 .0-0.3 Automated blood basophil count (count/volume) 0.1 10*3/uL 0.0-0.1 Comprehensive metabolic panel - 06/15/19 09:10 Serum or plasma sodium measurement (moles/volume) 137 mmol/L 135-145 Serum or plasma potassium measurement (moles/volume) 5.0 mmol/L 3.6-5.0 Serum or plasma chloride measurement (moles/volume) 107 mmol/L 98-107 Carbon dioxide 11 mmol/L 21-32 Serum or plasma anion gap determination (moles/volume) 19 mmol/L 5-14 Serum or plasma urea nitrogen measurement (mass/volume ) 27 mg/dL 7-18 Serum or plasma creatinine measurement (mass/volume) 2.52 mg/dL 0.60-1.30 Serum or plasma urea nitrogen/creatinine mass ratio 11 NRG Serum or plasma creatinine measurement w ith calculation of estimated glomerular filtration rate 25 NRG Serum or plasma glucose measurement (mass/volume) 130 mg/dL 70-105 Serum or plasma calcium measurement (mass/volume) 9.5 mg/dL 8.5-10.1 Serum or plasma total bilirubin measurement (mass/volu me) 0.4 mg/dL 0.1-1.0 Serum or plasma alkaline phosphatase richar surement (enzymatic activity/volume) 67 U/L 40-136 Serum or plasma aspartate aminotransfera se measurement (enzymatic activity/volume) 32 U/L 5-34 Serum or plasma alanine aminotransferase measurement (enzymatic activity/volume) 15 U/L 0-55 Serum or plasma protein measurement (mass/volume) 7.0 g/dL 6.4-8.2 Serum or plasma albumin measurement (mass/volume) 3.7 g/dL 3.2-4.5 CALCIUM CORRECTED 9.7 mg/dL 8.5-10.1 Blood lactic acid measurement (moles/vol ume) - 06/15/19 09:10 Blood lactic acid measurement (moles/volume) 5.99 mmol/L 0.50-2.00 PT panel in platelet poor plasma by coag ulation assay - 06/15/19 09:10 Prothrombin time (PT) in platelet poor plasma by coagu lation assay 15.5 s 12.2-14.7 INR in platelet poor plasma or blood by coagulation as say 1.2 0.8-1.4 Activated partial thromboplastin time (a PTT) in platelet poor plasma bycoagulation assay - 06/15/19 09:10 Activated partial thromboplastin time (a PTT) in platelet poor plasma bycoagulation assay 37 s 24-35 Influenza virus A and B antigen detectio n - 06/15/19 09:10 FLU RESULT NEGATIVE FOR INFLUENZA A AND B ANTIGENS BY IA NRG Serum or plasma troponin i.cardiac measu rement (mass/volume) - 06/15/19 09:10 Serum or plasma troponin i.cardiac measurement (mass/v olume) 0.093 ng/mL <0.028 Bacterial blood culture - 06/15/19 09:10 Bacterial blood culture NG NRG Bacterial blood culture - 06/15/19 09:27 Bacterial blood culture NG NRG Arterial blood gas measurement - 0 09:55 Blood pCO2 29 mm[Hg] 35-45 Blood pO2 38 mm[Hg] 79-93 Arterial blood bicarbonate measurement (moles/volume) 14 mmol/L 23-27 Arterial blood base excess by calculation -10.6 mm ol/L -2.5-2.5 Arterial blood oxygen saturation measurement 51 % 94-100 * Inhaled oxygen flow rate 4 L NRG Arterial blood pH measurement with patient temperature correction 7.32 7.37-7.43 Arterial blood carbon dioxide, total measurement (mole s/volume) 14.7 mmol/L 21.0-31.0 Body site LT RAD NRG Assessment of wrist artery patency prior to arterial p uncture YES-POS NRG Setting of ventilation mode NO NR G Measurement of body temperature 39.1 NRG Arterial blood gas measurement - 0 10:54 Blood pCO2 33 mm[Hg] 35-45 Blood pO2 98 mm[Hg] 79-93 Arterial blood bicarbonate measurement (moles/volume) 16 mmol/L 23-27 Arterial blood base excess by calculation -8.5 mmo l/L -2.5-2.5 Arterial blood oxygen saturation measurement 97 % 94-100 * Inhaled oxygen flow rate 4 L NRG Arterial blood pH measurement with patient temperature correction 7.32 7.37-7.43 Arterial blood carbon dioxide, total measurement (mole s/volume) 17.4 mmol/L 21.0-31.0 Body site RT RAD NRG Assessment of wrist artery patency prior to arterial p uncture YES-POS NRG Setting of ventilation mode NO NR G Measurement of body temperature 37.4 NRG Serum or plasma lactate measurement (mol es/volume) - 06/15/19 11:08 Serum or plasma lactate measurement (moles/volume) 1.96 mmol/L 0.50-2.00 Methicillin resistant Staphylococcus aur eus (MRSA) screening culture - 06/15/19 14:25 Methicillin resistant Staphylococcus aureus (MRSA) scr eening culture NEG NRG Complete urinalysis with reflex to cultu re - 06/15/19 15:30 Urine color determination YELLOW NRG Urine clarity determination CLEAR NR G Urine pH measurement by test strip 5.0 5-9 Specific gravity of urine by test strip 1.020 1.016-1.022 Urine protein assay by test strip, semi-quantitative TRACE NEGATIVE Urine glucose detection by automated test strip NE GATIVE NEGATIVE Erythrocytes detection in urine sediment by light micr oscopy 2+ NEGATIVE Urine ketones detection by automated test strip NE GATIVE NEGATIVE Urine nitrite detection by test strip NEGATIVE NEGATIVE Urine total bilirubin detection by test strip NEGA TIVE NEGATIVE Urine urobilinogen measurement by automated test strip (mass/volume) 0.2 mg/dL < = 1.0 Urine leukocyte esterase detection by dipstick NEG ATIVE NEGATIVE Automated urine sediment erythrocyte cou nt by microscopy (number/high power field) [HPF] NRG Automated urine sediment leukocyte count by microscopy (number/high power field) NONE NRG Bacteria detection in urine sediment by light microsco py NEGATIVE NRG Squamous epithelial cells detection in u rine sediment by light microscopy 2-5 NRG Crystals detection in urine sediment by light microsco py NONE NRG Casts detection in urine sediment by light microscopy NONE NRG Mucus detection in urine sediment by light microscopy NEGATIVE NRG Complete urinalysis with reflex to culture CULTURE PENDING NRG Bacterial urine culture - 06/15/19 15:30 Bacterial urine culture NG NRG Arterial blood gas measurement - 0 16:35 Blood pCO2 30 mm[Hg] 35-45 Blood pO2 80 mm[Hg] 79-93 Arterial blood bicarbonate measurement (moles/volume) 14 mmol/L 23-27 Arterial blood base excess by calculation -11.7 mm ol/L -2.5-2.5 Arterial blood oxygen saturation measurement 95 % 94-100 * Inhaled oxygen flow rate 40L 25% NRG Arterial blood pH measurement with patient temperature correction 7.28 7.37-7.43 Arterial blood carbon dioxide, total measurement (mole s/volume) 14.7 mmol/L 21.0-31.0 Body site LT RAD NRG Assessment of wrist artery patency prior to arterial p uncture YES-POS NRG Setting of ventilation mode NO NR G Measurement of body temperature 36.6 NRG Complete blood count (CBC) with automate d white blood cell (WBC) differential - 06/16/19 03:17 Blood leukocytes automated count (number/volume) 9.4 10*3/uL 4.3-11.0 Blood erythrocytes automated count (number/volume) 3.80 10*6/uL 4.35-5.85 Venous blood hemoglobin measurement (mass/volume) 11.0 g/dL 13.3-17.7 Blood hematocrit (volume fraction) 34 % 40-54 Automated erythrocyte mean corpuscular volume 90 [ foz_us] 80-99 Automated erythrocyte mean corpuscular h emoglobin (mass per erythrocyte) 29 pg 25-34 Automated erythrocyte mean corpuscular h emoglobin concentration measurement (mass/volume) 32 g/dL 32-36 Automated erythrocyte distribution width ratio 15. 3 % 10.0- 14.5 Automated blood platelet count (count/volume) 176 10*3/uL 130-400 Automated blood platelet mean volume measurement 9.3 [foz_us] 7.4-10.4 Automated blood neutrophils/100 leukocytes 86 % 42-75 Automated blood lymphocytes/100 leukocytes 9 % 12-44 Blood monocytes/100 leukocytes 5 % 0-12 Automated blood eosinophils/100 leukocytes 0 % 0-10 Automated blood basophils/100 leukocytes 0 % 0-10 Blood neutrophils automated count (number/volume) 8.0 10*3 1.8-7.8 Blood lymphocytes automated count (number/volume) 0.9 10*3 1.0-4.0 Blood monocytes automated count (number/volume) 0. 5 10*3 0.0-1.0 Automated eosinophil count 0.0 10*3/uL 0 .0-0.3 Automated blood basophil count (count/volume) 0.0 10*3/uL 0.0-0.1 Whole blood basic metabolic panel - 07/31 03:17 Serum or plasma sodium measurement (moles/volume) 140 mmol/L 135-145 Serum or plasma potassium measurement (moles/volume) 3.4 mmol/L 3.6-5.0 Serum or plasma chloride measurement (moles/volume) 118 mmol/L 98-107 Carbon dioxide 13 mmol/L 21-32 Serum or plasma anion gap determination (moles/volume) 9 mmol/L 5-14 Serum or plasma urea nitrogen measurement (mass/volume ) 29 mg/dL 7-18 Serum or plasma creatinine measurement (mass/volume) 1.71 mg/dL 0.60-1.30 Serum or plasma urea nitrogen/creatinine mass ratio 17 NRG Serum or plasma creatinine measurement w ith calculation of estimated glomerular filtration rate 39 NRG Serum or plasma glucose measurement (mass/volume) 167 mg/dL 70-105 Serum or plasma calcium measurement (mass/volume) 7.7 mg/dL 8.5-10.1 Serum or plasma phosphate measurement (m ass/volume) - 06/16/19 03:17 Serum or plasma phosphate measurement (mass/volume) 2.6 mg/dL 2.3-4.7 Magnesium - 06/16/19 03:17 Magnesium 2.0 mg/dL 1.6-2.4 Arterial blood gas measurement - 0 11:15 Blood pCO2 32 mm[Hg] 35-45 Blood pO2 70 mm[Hg] 79-93 Arterial blood bicarbonate measurement (moles/volume) 16 mmol/L 23-27 Arterial blood base excess by calculation -9.0 mmo l/L -2.5-2.5 Arterial blood oxygen saturation measurement 93 % 94-100 * Inhaled oxygen flow rate 25% NRG Arterial blood pH measurement with patient temperature correction 7.32 7.37-7.43 Arterial blood carbon dioxide, total measurement (mole s/volume) 17.0 mmol/L 21.0-31.0 Body site LR NRG Assessment of wrist artery patency prior to arterial p uncture YES-POS NRG Setting of ventilation mode NO NR G Measurement of body temperature 37.1 NRG Serum or plasma troponin i.cardiac measu rement (mass/volume) - 06/16/19 15:50 Serum or plasma troponin i.cardiac measurement (mass/v olume) 0.054 ng/mL <0.028 Complete blood count (CBC) with automate d white blood cell (WBC) differential - 06/17/19 03:18 Blood leukocytes automated count (number/volume) 10.6 10*3/uL 4.3-11.0 Blood erythrocytes automated count (number/volume) 3.75 10*6/uL 4.35-5.85 Venous blood hemoglobin measurement (mass/volume) 10.8 g/dL 13.3-17.7 Blood hematocrit (volume fraction) 33 % 40-54 Automated erythrocyte mean corpuscular volume 89 [ foz_us] 80-99 Automated erythrocyte mean corpuscular h emoglobin (mass per erythrocyte) 29 pg 25-34 Automated erythrocyte mean corpuscular h emoglobin concentration measurement (mass/volume) 32 g/dL 32-36 Automated erythrocyte distribution width ratio 16. 1 % 10.0- 14.5 Automated blood platelet count (count/volume) 185 10*3/uL 130-400 Automated blood platelet mean volume measurement 9.4 [foz_us] 7.4-10.4 Automated blood neutrophils/100 leukocytes 88 % 42-75 Automated blood lymphocytes/100 leukocytes 7 % 12-44 Blood monocytes/100 leukocytes 5 % 0-12 Automated blood eosinophils/100 leukocytes 0 % 0-10 Automated blood basophils/100 leukocytes 0 % 0-10 Blood neutrophils automated count (number/volume) 9.3 10*3 1.8-7.8 Blood lymphocytes automated count (number/volume) 0.8 10*3 1.0-4.0 Blood monocytes automated count (number/volume) 0. 5 10*3 0.0-1.0 Automated eosinophil count 0.0 10*3/uL 0 .0-0.3 Automated blood basophil count (count/volume) 0.0 10*3/uL 0.0-0.1 Whole blood basic metabolic panel - 08/31 03:18 Serum or plasma sodium measurement (moles/volume) 140 mmol/L 135-145 Serum or plasma potassium measurement (moles/volume) 4.1 mmol/L 3.6-5.0 Serum or plasma chloride measurement (moles/volume) 115 mmol/L 98-107 Carbon dioxide 16 mmol/L 21-32 Serum or plasma anion gap determination (moles/volume) 9 mmol/L 5-14 Serum or plasma urea nitrogen measurement (mass/volume ) 24 mg/dL 7-18 Serum or plasma creatinine measurement (mass/volume) 1.29 mg/dL 0.60-1.30 Serum or plasma urea nitrogen/creatinine mass ratio 19 NRG Serum or plasma creatinine measurement w ith calculation of estimated glomerular filtration rate 54 NRG Serum or plasma glucose measurement (mass/volume) 135 mg/dL 70-105 Serum or plasma calcium measurement (mass/volume) 7.9 mg/dL 8.5-10.1 Serum or plasma phosphate measurement (m ass/volume) - 06/17/19 03:18 Serum or plasma phosphate measurement (mass/volume) 1.9 mg/dL 2.3-4.7 Magnesium - 06/17/19 03:18 Magnesium 1.7 mg/dL 1.6-2.4 Manual absolute plasma cell count - 08/31 03:18 Blood monocytes/100 leukocytes 1 % NRG Manual blood segmented neutrophils/100 leukocytes 93 % NRG Manual blood lymphocytes/100 leukocytes 5 % NRG Blood lymphocytes variant/100 leukocytes 1 % NRG Complete blood count (CBC) with automate d white blood cell (WBC) differential - 06/18/19 05:05 Blood leukocytes automated count (number/volume) 11.4 10*3/uL 4.3-11.0 Blood erythrocytes automated count (number/volume) 3.89 10*6/uL 4.35-5.85 Venous blood hemoglobin measurement (mass/volume) 11.3 g/dL 13.3-17.7 Blood hematocrit (volume fraction) 34 % 40-54 Automated erythrocyte mean corpuscular volume 88 [ foz_us] 80-99 Automated erythrocyte mean corpuscular h emoglobin (mass per erythrocyte) 29 pg 25-34 Automated erythrocyte mean corpuscular h emoglobin concentration measurement (mass/volume) 33 g/dL 32-36 Automated erythrocyte distribution width ratio 15. 8 % 10.0- 14.5 Automated blood platelet count (count/volume) 210 10*3/uL 130-400 Automated blood platelet mean volume measurement 9.6 [foz_us] 7.4-10.4 Automated blood neutrophils/100 leukocytes 80 % 42-75 Automated blood lymphocytes/100 leukocytes 13 % 12-44 Blood monocytes/100 leukocytes 7 % 0-12 Automated blood eosinophils/100 leukocytes 0 % 0-10 Automated blood basophils/100 leukocytes 0 % 0-10 Blood neutrophils automated count (number/volume) 9.1 10*3 1.8-7.8 Blood lymphocytes automated count (number/volume) 1.5 10*3 1.0-4.0 Blood monocytes automated count (number/volume) 0. 8 10*3 0.0-1.0 Automated eosinophil count 0.0 10*3/uL 0 .0-0.3 Automated blood basophil count (count/volume) 0.0 10*3/uL 0.0-0.1 Whole blood basic metabolic panel - 09/30 05:05 Serum or plasma sodium measurement (moles/volume) 141 mmol/L 135-145 Serum or plasma potassium measurement (moles/volume) 4.1 mmol/L 3.6-5.0 Serum or plasma chloride measurement (moles/volume) 108 mmol/L 98-107 Carbon dioxide 23 mmol/L 21-32 Serum or plasma anion gap determination (moles/volume) 10 mmol/L 5-14 Serum or plasma urea nitrogen measurement (mass/volume ) 24 mg/dL 7-18 Serum or plasma creatinine measurement (mass/volume) 1.21 mg/dL 0.60-1.30 Serum or plasma urea nitrogen/creatinine mass ratio 20 NRG Serum or plasma creatinine measurement w ith calculation of estimated glomerular filtration rate 58 NRG Serum or plasma glucose measurement (mass/volume) 139 mg/dL 70-105 Serum or plasma calcium measurement (mass/volume) 8.5 mg/dL 8.5-10.1 Serum or plasma phosphate measurement (m ass/volume) - 06/18/19 05:05 Serum or plasma phosphate measurement (mass/volume) 2.8 mg/dL 2.3-4.7 Magnesium - 06/18/19 05:05 Magnesium 2.3 mg/dL 1.6-2.4 Serum or plasma lithium measurement (mol es/volume) - 06/18/19 05:05 BNP PT 1000.4 pg/mL <100.0 Complete blood count (CBC) with automate d white blood cell (WBC) differential - 06/19/19 05:35 Blood leukocytes automated count (number/volume) 8.9 10*3/uL 4.3-11.0 Blood erythrocytes automated count (number/volume) 3.45 10*6/uL 4.35-5.85 Venous blood hemoglobin measurement (mass/volume) 10.0 g/dL 13.3-17.7 Blood hematocrit (volume fraction) 30 % 40-54 Automated erythrocyte mean corpuscular volume 88 [ foz_us] 80-99 Automated erythrocyte mean corpuscular h emoglobin (mass per erythrocyte) 29 pg 25-34 Automated erythrocyte mean corpuscular h emoglobin concentration measurement (mass/volume) 33 g/dL 32-36 Automated erythrocyte distribution width ratio 15. 6 % 10.0- 14.5 Automated blood platelet count (count/volume) 204 10*3/uL 130-400 Automated blood platelet mean volume measurement 9.2 [foz_us] 7.4-10.4 Automated blood neutrophils/100 leukocytes 77 % 42-75 Automated blood lymphocytes/100 leukocytes 15 % 12-44 Blood monocytes/100 leukocytes 8 % 0-12 Automated blood eosinophils/100 leukocytes 0 % 0-10 Automated blood basophils/100 leukocytes 0 % 0-10 Blood neutrophils automated count (number/volume) 6.8 10*3 1.8-7.8 Blood lymphocytes automated count (number/volume) 1.3 10*3 1.0-4.0 Blood monocytes automated count (number/volume) 0. 7 10*3 0.0-1.0 Automated eosinophil count 0.0 10*3/uL 0 .0-0.3 Automated blood basophil count (count/volume) 0.0 10*3/uL 0.0-0.1 Whole blood basic metabolic panel - 10/31 05:35 Serum or plasma sodium measurement (moles/volume) 141 mmol/L 135-145 Serum or plasma potassium measurement (moles/volume) 4.0 mmol/L 3.6-5.0 Serum or plasma chloride measurement (moles/volume) 105 mmol/L 98-107 Carbon dioxide 29 mmol/L 21-32 Serum or plasma anion gap determination (moles/volume) 7 mmol/L 5-14 Serum or plasma urea nitrogen measurement (mass/volume ) 28 mg/dL 7-18 Serum or plasma creatinine measurement (mass/volume) 1.23 mg/dL 0.60-1.30 Serum or plasma urea nitrogen/creatinine mass ratio 23 NRG Serum or plasma creatinine measurement w ith calculation of estimated glomerular filtration rate 57 NRG Serum or plasma glucose measurement (mass/volume) 155 mg/dL 70-105 Serum or plasma calcium measurement (mass/volume) 8.5 mg/dL 8.5-10.1 Serum or plasma phosphate measurement (m ass/volume) - 06/19/19 05:35 Serum or plasma phosphate measurement (mass/volume) 2.0 mg/dL 2.3-4.7 Magnesium - 06/19/19 05:35 Magnesium 2.2 mg/dL 1.6-2.4 Complete blood count (CBC) with automate d white blood cell (WBC) differential - 06/20/19 05:40 Blood leukocytes automated count (number/volume) 11.9 10*3/uL 4.3-11.0 Blood erythrocytes automated count (number/volume) 3.55 10*6/uL 4.35-5.85 Venous blood hemoglobin measurement (mass/volume) 10.4 g/dL 13.3-17.7 Blood hematocrit (volume fraction) 31 % 40-54 Automated erythrocyte mean corpuscular volume 87 [ foz_us] 80-99 Automated erythrocyte mean corpuscular h emoglobin (mass per erythrocyte) 29 pg 25-34 Automated erythrocyte mean corpuscular h emoglobin concentration measurement (mass/volume) 34 g/dL 32-36 Automated erythrocyte distribution width ratio 15. 4 % 10.0- 14.5 Automated blood platelet count (count/volume) 218 10*3/uL 130-400 Automated blood platelet mean volume measurement 9.5 [foz_us] 7.4-10.4 Automated blood neutrophils/100 leukocytes 83 % 42-75 Automated blood lymphocytes/100 leukocytes 8 % 12-44 Blood monocytes/100 leukocytes 9 % 0-12 Automated blood eosinophils/100 leukocytes 0 % 0-10 Automated blood basophils/100 leukocytes 0 % 0-10 Blood neutrophils automated count (number/volume) 9.8 10*3 1.8-7.8 Blood lymphocytes automated count (number/volume) 1.0 10*3 1.0-4.0 Blood monocytes automated count (number/volume) 1. 1 10*3 0.0-1.0 Automated eosinophil count 0.0 10*3/uL 0 .0-0.3 Automated blood basophil count (count/volume) 0.0 10*3/uL 0.0-0.1 Whole blood basic metabolic panel - 11/30 05:40 Serum or plasma sodium measurement (moles/volume) 138 mmol/L 135-145 Serum or plasma potassium measurement (moles/volume) 3.7 mmol/L 3.6-5.0 Serum or plasma chloride measurement (moles/volume) 102 mmol/L 98-107 Carbon dioxide 28 mmol/L 21-32 Serum or plasma anion gap determination (moles/volume) 8 mmol/L 5-14 Serum or plasma urea nitrogen measurement (mass/volume ) 30 mg/dL 7-18 Serum or plasma creatinine measurement (mass/volume) 1.19 mg/dL 0.60-1.30 Serum or plasma urea nitrogen/creatinine mass ratio 25 NRG Serum or plasma creatinine measurement w ith calculation of estimated glomerular filtration rate 59 NRG Serum or plasma glucose measurement (mass/volume) 154 mg/dL 70-105 Serum or plasma calcium measurement (mass/volume) 8.5 mg/dL 8.5-10.1 Serum or plasma phosphate measurement (m ass/volume) - 06/20/19 05:40 Serum or plasma phosphate measurement (mass/volume) 2.0 mg/dL 2.3-4.7 Magnesium - 06/20/19 05:40 Magnesium 2.2 mg/dL 1.6-2.4 Serum or plasma lithium measurement (mol es/volume) - 06/20/19 05:40 BNP PT 1029.7 pg/mL <100.0 Encounters ACCT No. Visit Date/Time Discharge Status Pt. Type Provider Facility Loc./Unit Complaint [id number] 06/18/2012 14:04:00 06/18/2012 23:59: 59 CLS Outpatient MIGUEL ANGEL RUIZ APRN [id number] 05/17/2012 10:39:00 05/17/2012 23:59: 59 CLS Outpatient MIGUEL ANGEL RUIZ APRN [id number] 04/05/2012 09:09:00 04/05/2012 23:59: 59 CLS Outpatient MIGUEL ANGEL RUIZ APRN [id number] 04/03/2012 14:59:00 04/03/2012 23:59: 59 CLS Outpatient [id number] 09/06/2012 10:57:00 Document Registration [id number] 12/03/2018 09:00:00 12/03/2018 23:59:5 9 CLS Outpatient STACIE ARMENDARIZ, [facility] [id number] 02/12/2019 09:07:00 23:59:59 CLS Outpatient BENJAMIN CASON APRN [facility] RT DYSPNEA,COPD,TO BACCO USE [id number] 11/11/2018 11:04:00 23:59:59 CLS Preadmit BENJAMIN CASON APRN [facility] RAD COPD,PNEUMONIA, TOBACCO USE,DYSPNEA [id number] 11/11/2018 07:18:00 23:59:59 CLS Outpatient BENJAMIN CASON APRN [facility] RAD DYSPNEA,COPD,TO BACCO USE [id number] 11/05/2018 10:32:00 18:30:00 DIS Outpatient CALLIE ARMENDARIZ FACKwame, [facility] CC DS [facility] CATH ABN STRESS TEST,SOB [id number] 10/29/2018 07:28:00 23:59:59 CLS Outpatient CALLIE ARMENDARIZ FACC, [facility] CC DS [facility] CARD SOB [id number] 09/09/2018 21:45:00 12:49:00 DIS Inpatient ILIA PERRY MD [facility] 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
[2019-06-20 23:50] VITALS: BP 126/74
--- OUTSIDE RECORDS SUMMARY | 2019-06-21 00:37 | XMS REPORT | Continuity of Care Document ---
Author Organization Unknown Address Unknown Phone Unavailable Allergies Active Description Code Type Severity Reaction Onset Reported/Identified Relationship to Patient Clinical Status Yes Penicillins Drug Allergy 04/03/2012 Yes No Known Drug Allergies [id number] Drug Allergy Unknown N/A 09/09/2018 Yes Penicillins [id number] Drug Aller gy Unknown N/A 09/09/2018 Medications There is no data. 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 05/08/2012 V76.44 PRO STATE CANCER SCREENING [...] MD Ot E86 .0 DEHYDRATION 09/24/2018 ILIA PERRY MD Ot E87 .2 ACIDOSIS 09/24/2018 ILIA [...] CCDS Ot 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 11/05/2018 CALLIE ARMENDARIZ FACC, ALI FACP CCDS Ot 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 11/05/2018 CALLIE ARMENDARIZ FACC, ALI FACP CCDS Ot I50.9 HEART FAILURE, UNSPECIFIED 11/05/2018 CALLIE ARMENDARIZ FACC, ALI FACP CCDS Ot J44.9 CHRONIC OBSTRUCTIVE PULMONARY DISEASE, U 11/05/2018 CALLIE ARMENDARIZ FACC, ALI FACP CCDS Ot Z79.82 [facility]FP (CURRENT) USE OF ASPIRIN 11/05/2018 CALLIE ARMENDARIZ FACC, ALI FACP CCDS Ot 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 11/05/2018 CALLIE ARMENDARIZ FACC, ALI FACP CCDS Ot Z85.028 PERSONAL HISTORY OF OTHER MALIGNANT NEOP 11/05/2018 CALLIE ARMENADRIZ FACC, ALI FACP CCDS Ot Z86.73 PRSNL [...] CCDS Ot 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 11/08/2018 CALLIE ARMENDARIZ FACC, ALI FACP CCDS Ot 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 11/08/2018 CALLIE ARMENDARIZ FACC, [facility] FACP CCDS Ot I50.9 HEART FAILURE, UNSPECIFIED 11/08/2018 CALLIE ARMENDARIZ FACC, ALI FACP CCDS Ot J44.9 CHRONIC OBSTRUCTIVE PULMONARY DISEASE, U 11/08/2018 CALLIE ARMENDARIZ FACC, ALI FACP CCDS Ot Z79.82 MCFP (CURRENT) USE OF ASPIRIN 11/08/2018 CALLIE ARMENDARIZ FACC, [facility] FACP CCDS Ot Z79.899 OTHER MCFP (CURRENT) DRUG THERAPY 11/08/2018 CALLIE ARMENDARIZ FACC, [facility] FACP CCDS Ot Z85.028 PERSONAL HISTORY OF OTHER MALIGNANT NEOP 11/08/2018 CALLIE ARMENDARIZ FACC, [facility] FACP CCDS Ot Z86.73 PRSNL HX OF TIA (TIA), AND CEREB INFRC W 11/08/2018 CALLIE ARMENDARIZ FACC, ALI FACP CCDS Ot Z87.891 PERSONAL HISTORY OF NICOTINE DEPENDENCE 11/12/2018 BENJAMIN CASON APRN Ot 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 11/12/2018 BENJAMIN CASON APRN Ot J30.9 ALLERGIC RHINITIS, UNSPECIFIED 11/12/2018 BENJAMIN CASON CAKE TESTER Ot J44.9 CHRONIC OBSTRUCTIVE PULMONARY DISEASE, U 11/12/2018 BENJAMIN CASON CAKE TESTER Ot 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) 11/12/2018 BENJAMIN CASON APRN Ot Z72.0 TOBACCO USE 11/25/2018 CALLIE ARMENDARIZ FACC, [facility] FACP CCDS Ot R06.02 SHORTNESS OF BREATH 11/25/2018 CALLIE ARMENDARIZ FACC, [facility] FACP CCDS Ot Z72.0 TOBACCO USE 11/25/2018 CALLIE ARMENDARIZ FACC, [facility] FACP CCDS Ot Z86.79 PERSONAL HISTORY OF OTHER DISEASES OF 12/05/2018 BENJAMIN CASON CAKE TESTER Ot 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 12/05/2018 BENJAMIN CASON CAKE TESTER Ot J30.9 ALLERGIC RHINITIS, UNSPECIFIED 12/05/2018 GELY CASONINE E CAKE TESTER Ot J44.9 CHRONIC OBSTRUCTIVE PULMONARY DISEASE, U 12/05/2018 GELY CASONINE [place] CAKE TESTER Ot 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) 12/05/2018 GELY CASONINE [place] CAKE TESTER Ot Z72.0 TOBACCO USE 02/27/2019 CALLIE ARMENDARIZ FACC, ALI FACP CCDS Ot R06.02 SHORTNESS OF BREATH 02/27/2019 CALLIE ARMENDARIZ FACC, ALI FACP CCDS Ot Z72.0 TOBACCO USE 02/27/2019 CALLIE ARMENDARIZ FACC, ALI FACP CCDS Ot Z86.79 PERSONAL HISTORY OF OTHER DISEASES OF 02/27/2019 BENJAMIN CASON CAKE TESTER Ot J30.9 ALLERGIC RHINITIS, UNSPECIFIED 02/27/2019 BENJAMIN CASON CAKE TESTER Ot J44.9 CHRONIC OBSTRUCTIVE PULMONARY DISEASE, U 02/27/2019 BENJAMIN CASON CAKE TESTER Ot Z72.0 TOBACCO USE 02/27/2019 GELY CASONINE E CAKE TESTER Ot 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 02/27/2019 BENJAMIN CASON CAKE TESTER Ot J30.9 ALLERGIC RHINITIS, UNSPECIFIED 02/27/2019 BENJAMIN CASON CAKE TESTER Ot J44.9 CHRONIC OBSTRUCTIVE PULMONARY DISEASE, U 02/27/2019 BENJAMIN CASON CAKE TESTER Ot 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) 02/27/2019 BENJAMIN CASON CAKE TESTER Ot Z72.0 TOBACCO USE 02/27/2019 CALLIE ARMENDARIZ FACKwame, ALI FACP CCDS Ot R06.02 SHORTNESS OF BREATH 02/27/2019 CALLIE ARMENDARIZ FACKwame, ALI FACP CCDS Ot Z72.0 TOBACCO USE 02/27/2019 CALLIE ARMENDARIZ FACKwame, ALI FACP CCDS Ot Z86.79 PERSONAL HISTORY OF OTHER DISEASES OF 03/13/2019 BENJAMIN CASON CAKE TESTER Ot J30.9 ALLERGIC RHINITIS, UNSPECIFIED 03/13/2019 GELY CASONINE E CAKE TESTER Ot J44.9 CHRONIC OBSTRUCTIVE PULMONARY DISEASE, U 03/13/2019 GELY CASONINE [place] CAKE TESTER Ot Z72.0 TOBACCO USE 03/18/2019 CALLIE ARMENDARIZ [facility] CCDS Ot R06.02 SHORTNESS OF BREATH 03/18/2019 CALLIE ARMENDARIZ [facility] CCDS Ot Z72.0 TOBACCO USE 03/18/2019 CALLIE ARMENDARIZ [facility] FACP CCDS Ot Z86.79 PERSONAL HISTORY OF OTHER DISEASES OF TH 03/18/2019 GELY CASONINE [place] CAKE TESTER Ot J30.9 ALLERGIC RHINITIS, UNSPECIFIED 03/18/2019 YOAV BENJAMIN E CAKE TESTER Ot J44.9 CHRONIC OBSTRUCTIVE PULMONARY DISEASE, U 03/18/2019 YOAV BENJAMIN E CAKE TESTER Ot Z72.0 TOBACCO USE 03/18/2019 GELY CASONINE E CAKE TESTER Ot 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 03/18/2019 GELY CASONINE E CAKE TESTER Ot J30.9 ALLERGIC RHINITIS, UNSPECIFIED 03/18/2019 GELY CASONINE E CAKE TESTER Ot J44.9 CHRONIC OBSTRUCTIVE PULMONARY DISEASE, U 03/18/2019 GELY CASONINE E CAKE TESTER Ot 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) 03/18/2019 GELY CASONINE E CAKE TESTER Ot Z72.0 TOBACCO USE 06/15/2019 CALLIE ARMENDARIZ [facility] CCDS Ot R06.02 SHORTNESS OF BREATH 06/15/2019 CALLIE ARMENDARIZ [facility] CCDS Ot Z72.0 TOBACCO USE 06/15/2019 CALLIE ARMENDARIZ [facility] CCDS Ot Z86.79 PERSONAL HISTORY OF OTHER DISEASES OF TH 06/15/2019 GELY CASONINE [place] CAKE TESTER Ot J30.9 ALLERGIC RHINITIS, UNSPECIFIED 06/15/2019 GELY CASONINE E CAKE TESTER Ot J44.9 CHRONIC OBSTRUCTIVE PULMONARY DISEASE, U 06/15/2019 GELY CASONINE E CAKE TESTER Ot Z72.0 TOBACCO USE 06/15/2019 GELY CASONINE E CAKE TESTER Ot 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 06/15/2019 GELY CASONINE E CAKE TESTER Ot J30.9 ALLERGIC RHINITIS, UNSPECIFIED 06/15/2019 GELY CASONINE E CAKE TESTER Ot J44.9 CHRONIC OBSTRUCTIVE PULMONARY DISEASE, U [...] Code Description [place] [address] ROUT INE VENIPUNCTURE 04/05/2012 66959 XRAY CHEST 2 VIEW 04/05/2012 69134 CMP 04/05/2012 17007 LIPI D PANEL 04/05/2012 46985 PSA FREE AND TOTAL 04/05/2012 00810 TSH 04/05/2012 80095 CBC 04/05/2012 52148 EKG, TRACING (IN-HOUSE) 04/05/2012 28502 SPIR OMETRY 05/17/2012 89409 BRON CHODILATION PRE/POST 05/17/2012 06056 RESP IRATORY FLOW VOLUME LOOP 05/17/2012 62933 ROUT INE VENIPUNCTURE 06/18/2012 [id number] GF R CALC (RESULT ONLY) 06/18/2012 16770 BMP 06/18/2012 [id number] EX CISION OF ESOPHAGOGASTRIC JUNCTION, EN 09/18/2018 [id number] EX CISION OF STOMACH, PYLORUS, ENDO, DIAG 09/18/2018 [id number] EX TRACTION OF ESOPHAGUS, ENDO, DIAGN 09/18/2018 [id number] IN SERTION OF INFUSION DEV INTO SUP [...] NR Blood erythrocyte morphology finding identification NORMAL [facility] Serum or plasma C reactive protein measu rement (mass/volume) - 09/09/18 19:52 Serum or plasma C reactive protein measurement (mass/v olume) 19.59 mg/dL 0.00-0.50 Bacterial blood culture - 09/09/18 19:52 QUANTITY OF GROWTH . [facility] Bacterial blood culture SEE COMMEN [facility] Influenza virus A and B antigen detectio n - 09/09/18 20:02 FLU RESULT NEGATIVE FOR INFLUENZA A AND B ANTIGENS BY IA [facility] Bacterial blood culture - 09/09/18 20:05 Bacterial blood culture NG [facility] Methicillin resistant Staphylococcus aur eus (MRSA) screening culture - 09/09/18 23:43 Methicillin resistant Staphylococcus aureus (MRSA) scr eening culture NEG [facility] Complete blood count (CBC) with [...] ABO+Rh group AP NRG Transfusion band number [id number] NRG Blood group antibody screen NEGATIVE NR G Fungus culture - 09/18/18 13:10 QUANTITY OF GROWTH Many NRG FTX;REPORTABLE ID REPORTED BY L 09/20/18 16:05 NRG Fungus culture [id number] NRG Note: Martine krusei is innately resistant [...] Status Pt. Type Provider Facility Loc./Unit Complaint [id number] 06/18/2012 14:04:00 06/18/2012 23:59: 59 CLS Outpatient MIGUEL ANGEL RUIZ APRN [id number] 05/17/2012 10:39:00 05/17/2012 23:59: 59 CLS Outpatient MIGUEL ANGEL RUIZ APRN [id number] 04/05/2012 09:09:00 04/05/2012 23:59: 59 CLS Outpatient MIGUEL ANGEL RUIZ APRN [id number] 04/03/2012 14:59:00 04/03/2012 23:59: 59 CLS Outpatient [id number] 09/06/2012 10:57:00 Document Registration [id number] 12/03/2018 09:00:00 12/03/2018 23:59:5 9 CLS Outpatient STACIE ARMENDARIZ, [facility] [id number] 02/12/2019 09:07:00 23:59:59 CLS Outpatient BENJAMIN CASON APRN [facility] RT DYSPNEA,COPD,TO BACCO USE [id number] 11/11/2018 11:04:00 23:59:59 CLS Preadmit BENJAMIN CASON APRN [facility] RAD COPD,PNEUMONIA, TOBACCO USE,DYSPNEA [id number] 11/11/2018 07:18:00 23:59:59 CLS Outpatient BENJAMIN CASON APRN [facility] RAD DYSPNEA,COPD,TO BACCO USE [id number] 11/05/2018 10:32:00 18:30:00 DIS Outpatient CALLIE ARMENDARIZ FACKwame, [facility] CC DS [facility] CATH ABN STRESS TEST,SOB [id number] 10/29/2018 07:28:00 23:59:59 CLS Outpatient CALLIE ARMENDARIZ FACC, [facility] CC DS [facility] CARD SOB [id number] 09/09/2018 21:45:00 12:49:00 DIS Inpatient ILIA PERRY MD [facility] 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
[2019-06-21] MEDS: RT-ALBUTEROL/IPRATROPIUM 3 ML (DUONEB) VIAL INH SCH ×5 (02:10→22:25)
[2019-06-21] MEDS: RT-ADVAIR HFA 115/21 MCG PER PUFF IH SCH ×3 (02:10→18:53)
[2019-06-21 02:28] VITALS: BP 126/74
[2019-06-21 04:00] VITALS: BP 118/68
[2019-06-21] MEDS: SUCRALFATE 1 GM (CARAFATE) TAB PO SCH ×4 (05:44→20:44)
[2019-06-21] MEDS: ENOXAPARIN 40 MG/0.4 ML (LOVENOX) SYR SC SCH (05:44)
[2019-06-21 05:59] LABS: BASOPHILS % (AUTO) 0 % (0-10); EOSINOPHILS % (AUTO) 0 % (0-10); HEMATOCRIT 31 % (40-54); HEMOGLOBIN 10.3 G/DL (13.3-17.7); LYMPHOCYTES # (AUTO) 1.3 X 10^3 (1.0-4.0); LYMPHOCYTES % (AUTO) 9 % (12-44); MEAN CORPUSCULAR HEMOGLOBIN 29 PG (25-34); MEAN CORPUSCULAR HGB CONC 33 G/DL (32-36); MEAN CORPUSCULAR VOLUME 87 FL (80-99); MEAN PLATELET VOLUME 9.2 FL (7.4-10.4); MONOCYTES # (AUTO) 1.8 X 10^3 (0.0-1.0); MONOCYTES % (AUTO) 13 % (0-12); NEUTROPHILS # (AUTO) 10.5 X 10^3 (1.8-7.8); NEUTROPHILS % (AUTO) 77 % (42-75); PLATELET COUNT 220 10^3/uL (130-400); RED CELL DISTRIBUTION WIDTH 15.6 % (10.0-14.5); WHITE BLOOD COUNT 13.6 10^3/uL (4.3-11.0)
[2019-06-21 06:17] LABS: BUN/CREATININE RATIO 27; CALCIUM 8.4 MG/DL (8.5-10.1); CARBON DIOXIDE 30 MMOL/L (21-32); CHLORIDE 104 MMOL/L (98-107); CREATININE SERUM 1.09 MG/DL (0.60-1.30); GFR ESTIMATED > 60; GLUCOSE 133 MG/DL (70-105); MAGNESIUM 2.3 MG/DL (1.6-2.4); PHOSPHORUS 3.2 MG/DL (2.3-4.7); POTASSIUM 3.7 MMOL/L (3.6-5.0); SODIUM 142 MMOL/L (135-145)
[2019-06-21 08:25] VITALS: BP 129/65
[2019-06-21] MEDS: ASPIRIN E.C. 81 MG (ECOTRIN) TAB PO SCH (08:53)
[2019-06-21] MEDS: predniSONE 10 MG TAB PO SCH (08:53)
[2019-06-21] MEDS: FUROSEMIDE 20 MG (LASIX) TAB PO SCH (08:53)
[2019-06-21] MEDS: PANTOPRAZOLE 40 MG (PROTONIX) TAB PO SCH (08:53)
[2019-06-21] MEDS: KCL 20 MEQ TAB (K-DUR) PO SCH ×2 (08:53→20:44)
[2019-06-21] MEDS ORDERED: FUROSEMIDE 40 MG/4 ML INJ (LASIX) IVP ONE (09:30)
--- NOTE | 2019-06-21 09:39 | Pulmonary Progress Note ---
Subjective Time Seen by a Provider: 09:34 Subjective/Events-last exam PT is more SOB. RT placing him on BiPAP. Sepsis Event Evaluation Height, Weight, BMI Height: 5'7.00" Weight: 120lbs. 0.0oz. 54.370159an; 18.00 BMI Method:Stated Exam Exam Vital Signs Date Time Temp Pulse Resp B/P (MAP) Pulse Ox O2 Delivery O2 Flow Rate FiO2 06/21/19 08:25 36.5 96 26 129/65 (86) 92 Vapotherm 30.00 25.00 06/21/19 06:48 Vapotherm 30.00 25 06/21/19 06:46 90 Vapotherm 30.00 25 06/21/19 04:00 36.5 85 22 118/68 (85) 93 Vapotherm 30.00 25.00 06/21/19 02:28 36.6 89 91 25 06/21/19 02:10 91 Vapotherm 40.00 25 06/20/19 23:50 36.6 89 20 126/74 (91) 94 Vapotherm 40.00 25.00 06/20/19 21:00 92 Vapotherm 40.00 25 06/20/19 20:07 36.8 89 22 123/73 (90) 94 Vapotherm 40.00 25.00 06/20/19 15:52 36.5 91 26 118/70 (86) 92 Vapotherm 40.00 25.00 06/20/19 14:36 94 Vapotherm 40.00 25 06/20/19 14:31 92 Vapotherm 40.00 25 06/20/19 12:00 36.4 80 18 111/69 (83) 95 Vapotherm 40.00 25.00 06/20/19 10:20 92 Vapotherm 40.00 25 I & O 06/21/19 07:00 Intake Total 1040 ml Output Total 1400 ml Balance -360 ml Height & Weight Height: 5'7.00" Weight: 120lbs. 0.0oz. 54.903419bh; 18.00 BMI Method:Stated General Appearance: Anxious, Chronically ill, Mild Distress, Thin HEENT: PERRL/EOMI, Pharynx Normal Neck: Full Range of Motion, Non Tender, Supple Respiratory: Chest Non Tender, Accessory Muscle Use (mild), Decreased Breath Sounds, Respiratory Distress (mild), Wheezing Cardiovascular: Regular Rate, Rhythm (99), Normal Peripheral Pulses Capillary Refill: Less Than 3 Seconds Peripheral Pulses: 2+ Radial Pulses (R), 2+ Radial Pulses (L) Gastrointestinal: normal bowel sounds, non tender Extremity: Normal Capillary Refill, Non Tender, No Pedal Edema Neurologic/Psychiatric: Alert, Oriented x3 Skin: Normal Color, Warm/Dry Lymphatic: No Adenopathy Results Lab Laboratory Tests 06/20/19 05:40 06/21/19 05:48 Assessment/Plan Assessment/Plan Acute respiratory distress-- pt is more SOB -Currently on BiPAP -Will change prednisone back to solumedrol and give lasix IV -Check ABG -Repeat BNP Severe sepsis with pneumonia -Continue cefepime --Auto stopped will restart. -Wasserman cultures pending Lung nodule -Will repeat CT scan in 3mo. COPD -Duonebs -Oxygen Anemia -Monitor AKF -Monitor ELINA ALVAREZ DO Jun 21, 2019 09:39
[2019-06-21] MEDS ORDERED: methylPREDNISolone 125 MG (Solu-MEDROL) VIAL IVP ONE (09:45)
[2019-06-21] MEDS ORDERED: KCL 20 MEQ TAB (K-DUR) PO ONE (09:45)
[2019-06-21 09:52] LABS: ABG BASE EXCESS 5.8 MMOL/L (-2.5-2.5); ABG OXYGEN SATURATION 96 % (94-100); ABG PCO2 38 MMHG (35-45); ABG PH 7.49 (7.37-7.43); ABG PO2 82 MMHG (79-93); ABG TCO2 30.5 MMOL/L (21.0-31.0)
[2019-06-21] MEDS: CEFEPIME INJECTION 1,000 MG in WATER (STERILE) FOR INJECTION 10 ML IV SCH ×3 (09:53→20:44)
[2019-06-21 09:56] LABS: ALLENS TEST YES-POS; INSPIRED O2 30%; PATIENT TEMP 36.7; VENTILATOR YES
[2019-06-21] MEDS: methylPREDNISolone 40 MG/ML (Solu-MEDROL) VIAL IV SCH ×2 (11:36→17:01)
[2019-06-21 11:41] VITALS: BP 124/73
--- NOTE | 2019-06-21 13:01 | Progress Note - Hospitalist ---
Subjective HPI/CC On Admission Date Seen by Provider: Jun 21, 2019 Time Seen by Provider: 11:30 Subjective/Events-last exam Patient doing better Still on Vapotherm Lungs are improved Subtle confusion Son at bedside Reviewed notes and labs and meds Review of Systems Pulmonary: Dyspnea, Cough Objective Exam Vital Signs Vital Signs Date Time Temp Pulse Resp B/P (MAP) Pulse Ox O2 Delivery O2 Flow Rate FiO2 06/21/19 11:41 36.6 102 24 124/73 (90) 96 High Flow N/C 3.00 06/21/19 06:48 25 Capillary Refill : Less Than 3 SecondsLess Than 3 Seconds General Appearance: No Apparent Distress, WD/WN, Chronically ill, Thin Respiratory: No Accessory Muscle Use, No Respiratory Distress, Crackles, Decreased Breath Sounds, Wheezing Cardiovascular: Regular Rate, Rhythm Neurologic/Psychiatric: Alert, Oriented x3, No Motor/Sensory Deficits, Normal Mood/Affect, Disoriented Results/Procedures Lab Laboratory Tests 06/21/19 05:48 Patient resulted labs reviewed. Assessment/Plan Assessment and Plan Assess & Plan/Chief Complaint Assessment: (1) Severe sepsis (2) Pneumonia (3) Acute kidney injury (nontraumatic) (4) COPD with acute lower respiratory infection (5) Elevated troponin I level (6) Metabolic acidosis (7) DVT prophylaxis Plan: Wean Vapotherm IV abx Monitor creat Diagnosis/Problems Diagnosis/Problems (1) Severe sepsis Status: Resolved Resolution Date/Time: 06/17/19 @ 16:46 (2) Pneumonia Status: Acute Qualifiers: Pneumonia type: due to unspecified organism Laterality: unspecified laterality Lung location: unspecified part of lung Qualified Codes: J18.9 - Pneumonia, unspecified organism (3) Elevated troponin I level Status: Acute (4) Acute kidney injury (nontraumatic) Status: Resolved Resolution Date/Time: 06/17/19 @ 16:46 (5) SOB (shortness of breath) Clinical Quality Measures DVT/VTE Risk/Contraindication: Risk Factor Score Per Nursin RFS Level Per Nursing on Admit: 4+=Very High NILAM MORSE DO Jun 21, 2019 13:01
[2019-06-21 16:00] VITALS: BP 123/76
[2019-06-21 20:00] VITALS: BP 116/76
--- NOTE | 2019-06-21 21:17 | NUR ---
PATIENT HAVING INCREASED EFFORT TO BREATH WITH AUDIBLE WHEEZES. THIS RN ADMINISTERED PRN ALBUTEROL TX AT THIS TIME.
[2019-06-22] VITALS: BP 119/67
[2019-06-22] MEDS: methylPREDNISolone 40 MG/ML (Solu-MEDROL) VIAL IV SCH ×5 (00:16→23:53)
[2019-06-22] MEDS: RT-ALBUTEROL/IPRATROPIUM 3 ML (DUONEB) VIAL INH SCH ×5 (02:45→18:55)
[2019-06-22] MEDS: CEFEPIME INJECTION 1,000 MG in WATER (STERILE) FOR INJECTION 10 ML IV SCH ×4 (03:35→19:54)
[2019-06-22 04:00] VITALS: BP 112/63
[2019-06-22] MEDS: ENOXAPARIN 40 MG/0.4 ML (LOVENOX) SYR SC SCH (05:18)
[2019-06-22] MEDS: SUCRALFATE 1 GM (CARAFATE) TAB PO SCH ×4 (05:19→19:54)
[2019-06-22 05:53] LABS: BASOPHILS % (AUTO) 0 % (0-10); EOSINOPHILS % (AUTO) 0 % (0-10); HEMATOCRIT 33 % (40-54); HEMOGLOBIN 10.9 G/DL (13.3-17.7); LYMPHOCYTES # (AUTO) 0.7 X 10^3 (1.0-4.0); LYMPHOCYTES % (AUTO) 5 % (12-44); MEAN CORPUSCULAR HEMOGLOBIN 29 PG (25-34); MEAN CORPUSCULAR HGB CONC 33 G/DL (32-36); MEAN CORPUSCULAR VOLUME 88 FL (80-99); MEAN PLATELET VOLUME 9.6 FL (7.4-10.4); MONOCYTES # (AUTO) 1.2 X 10^3 (0.0-1.0); MONOCYTES % (AUTO) 8 % (0-12); NEUTROPHILS # (AUTO) 11.9 X 10^3 (1.8-7.8); NEUTROPHILS % (AUTO) 86 % (42-75); PLATELET COUNT 211 10^3/uL (130-400); RED CELL DISTRIBUTION WIDTH 15.4 % (10.0-14.5); WHITE BLOOD COUNT 13.8 10^3/uL (4.3-11.0)
[2019-06-22 06:18] LABS: CALCIUM 8.5 MG/DL (8.5-10.1); CREATININE SERUM 1.28 MG/DL (0.60-1.30); MAGNESIUM 2.5 MG/DL (1.6-2.4); PHOSPHORUS 3.4 MG/DL (2.3-4.7); POTASSIUM 4.6 MMOL/L (3.6-5.0)
[2019-06-22] MEDS: RT-ADVAIR HFA 115/21 MCG PER PUFF IH SCH ×2 (06:45→18:56)
[2019-06-22 07:36] VITALS: BP 121/65
[2019-06-22] MEDS: KCL 20 MEQ TAB (K-DUR) PO SCH ×2 (08:58→19:54)
[2019-06-22] MEDS: ASPIRIN E.C. 81 MG (ECOTRIN) TAB PO SCH (08:58)
[2019-06-22] MEDS: PANTOPRAZOLE 40 MG (PROTONIX) TAB PO SCH (08:58)
[2019-06-22] MEDS: FUROSEMIDE 20 MG (LASIX) TAB PO SCH (08:58)
[2019-06-22 11:41] VITALS: BP 119/64
--- NOTE | 2019-06-22 13:15 | Progress Note - Hospitalist ---
Subjective HPI/CC On Admission Date Seen by Provider: Jun 22, 2019 Time Seen by Provider: 11:00 Subjective/Events-last exam Patient doing well Off Vapotherm but still wheezing Son at bedside asleep No pain is reported BM+ Confusion noted but no change from baseline Review of Systems General: Fatigue Pulmonary: Dyspnea, Cough Objective Exam Vital Signs Vital Signs Date Time Temp Pulse Resp B/P (MAP) Pulse Ox O2 Delivery O2 Flow Rate FiO2 06/22/19 16:00 36.8 92 22 122/57 (78) 92 Room Air 06/22/19 14:28 2.00 06/21/19 06:48 25 Capillary Refill : Less Than 3 SecondsLess Than 3 Seconds General Appearance: No Apparent Distress, WD/WN, Chronically ill Respiratory: No Accessory Muscle Use, No Respiratory Distress, Crackles, Decreased Breath Sounds, Wheezing Cardiovascular: Regular Rate, Rhythm Neurologic/Psychiatric: Alert, Oriented x3, No Motor/Sensory Deficits, Normal Mood/Affect, Disoriented Results/Procedures Lab Laboratory Tests 06/22/19 05:23 Patient resulted labs reviewed. Assessment/Plan Assessment and Plan Assess & Plan/Chief Complaint Assessment: (1) Severe sepsis (2) Pneumonia (3) Acute kidney injury (nontraumatic) (4) COPD with acute lower respiratory infection (5) Elevated troponin I level (6) Metabolic acidosis (7) DVT prophylaxis Plan: Weaned Vapotherm IV abx Monitor creat Diagnosis/Problems Diagnosis/Problems (1) Severe sepsis Status: Resolved Resolution Date/Time: 06/17/19 @ 16:46 (2) Pneumonia Status: Acute Qualifiers: Pneumonia type: due to unspecified organism Laterality: unspecified laterality Lung location: unspecified part of lung Qualified Codes: J18.9 - Pneumonia, unspecified organism (3) Elevated troponin I level Status: Acute (4) Acute kidney injury (nontraumatic) Status: Resolved Resolution Date/Time: 06/17/19 @ 16:46 (5) SOB (shortness of breath) Clinical Quality Measures DVT/VTE Risk/Contraindication: Risk Factor Score Per Nursin RFS Level Per Nursing on Admit: 4+=Very High NILAM MORSE DO Jun 22, 2019 13:15
[2019-06-22 16:00] VITALS: BP 122/57
[2019-06-22 20:00] VITALS: BP 118/58
[2019-06-23] VITALS: BP 105/53
[2019-06-23] MEDS: RT-ALBUTEROL/IPRATROPIUM 3 ML (DUONEB) VIAL INH SCH ×3 (02:38→14:32)
[2019-06-23] MEDS: CEFEPIME INJECTION 1,000 MG in WATER (STERILE) FOR INJECTION 10 ML IV SCH ×2 (03:23→09:19)
[2019-06-23 03:40] LABS: BASOPHILS % (AUTO) 0 % (0-10); EOSINOPHILS % (AUTO) 0 % (0-10); HEMATOCRIT 34 % (40-54); LYMPHOCYTES # (AUTO) 0.7 X 10^3 (1.0-4.0); LYMPHOCYTES % (AUTO) 4 % (12-44); MEAN CORPUSCULAR HEMOGLOBIN 29 PG (25-34); MEAN CORPUSCULAR HGB CONC 33 G/DL (32-36); MEAN CORPUSCULAR VOLUME 89 FL (80-99); MEAN PLATELET VOLUME 9.4 FL (7.4-10.4); MONOCYTES # (AUTO) 1.6 X 10^3 (0.0-1.0); MONOCYTES % (AUTO) 9 % (0-12); NEUTROPHILS # (AUTO) 15.8 X 10^3 (1.8-7.8); NEUTROPHILS % (AUTO) 87 % (42-75); PLATELET COUNT 220 10^3/uL (130-400); RED CELL DISTRIBUTION WIDTH 15.9 % (10.0-14.5)
[2019-06-23 04:00] VITALS: BP 130/60
[2019-06-23 04:01] LABS: CALCIUM 8.5 MG/DL (8.5-10.1); CREATININE SERUM 1.25 MG/DL (0.60-1.30); MAGNESIUM 2.5 MG/DL (1.6-2.4); PHOSPHORUS 3.1 MG/DL (2.3-4.7); POTASSIUM 4.6 MMOL/L (3.6-5.0)
[2019-06-23 04:02] LABS: LYMPHOCYTES % (MANUAL) 3 %; MONOCYTES % (MANUAL) 8 %; NEUTROPHILS % (MANUAL) 89 %; RBC MORPH NORMAL
[2019-06-23] MEDS: SUCRALFATE 1 GM (CARAFATE) TAB PO SCH ×2 (05:52→12:21)
[2019-06-23] MEDS: ENOXAPARIN 40 MG/0.4 ML (LOVENOX) SYR SC SCH (05:52)
[2019-06-23] MEDS: methylPREDNISolone 40 MG/ML (Solu-MEDROL) VIAL IV SCH ×2 (05:52→12:21)
[2019-06-23 07:38] VITALS: BP 126/72
[2019-06-23] MEDS: PANTOPRAZOLE 40 MG (PROTONIX) TAB PO SCH (09:18)
[2019-06-23] MEDS: ASPIRIN E.C. 81 MG (ECOTRIN) TAB PO SCH (09:18)
[2019-06-23] MEDS: FUROSEMIDE 20 MG (LASIX) TAB PO SCH (09:18)
[2019-06-23] MEDS: KCL 20 MEQ TAB (K-DUR) PO SCH (09:18)
[2019-06-23] MEDS: RT-ADVAIR HFA 115/21 MCG PER PUFF IH SCH (10:02)
--- NOTE | 2019-06-23 11:30 | Physical Therapy Evaluation ---
PT Evaluation-General Medical Diagnosis Admission Date Jun 15, 2019 at 11:45 Medical Diagnosis: severe sepsis/COPD Onset Date: Jun 15, 2019 Therapy Diagnosis Therapy Diagnosis: generalized weakness/debility Height/Weight Height (Feet): 5 Height (Inches): 7.00 Weight (Pounds): 120 Weight (Ounces): 0.0 Precautions Precautions/Isolations: Fall Prevention, Standard Precautions Referral Physician: Colin Reason for Referral: Evaluation/Treatment Medical History Pertinent Medical History: COPD, Smoking Current History ER by EMS secondary to SOA x 2 days with SAO2 68% RA Reviewed History: Yes Social History Home: Single Level Current Living Status: Children Entry Into Home: Stairs With Railing PT Steps Into Home: 3 Prior Prior Level of Function SCALE: Activities may be completed with or without assistive devices. 7-Bzmflkwwzz-vnefjaj completes the activity by him/herself with no assistance from a helper. 5-Set-up or Clean-up Assistance-helper sets up or cleans up; patient completes activity. Madison assists only prior to or following the activity. 4-Supervision or Touching Assistance-helper provides verbal cues and/or touching/steadying and/or contact guard assistance as patient completes activity. Assistance may be provided throughout the activity or intermittently. 3-Partial/Moderate Assistance-helper does LESS THAN HALF the effort. Madison lifts, holds or supports trunk or limbs, but provides less than half the effort. 2-Substantial/Maximal Assistance-helper does MORE THAN HALF the effort. Madison lifts or holds trunk or limbs and provides more than half the effort. 4-Ultgqfxic-wrerrl does ALL the effort. Patient does none of the effort to complete the activity. Or, the assistance of 2 or more helpers is required for the patient to complete the activity. If activity was not attempted, code reason: 7-Patient Refused. 9-Not Applicable-not attempted and the patient did not perform the activity before the current illness, exacerbation or injury. 10-Not Attempted due to Environmental Limitations-(lack of equipment, weather restraints, etc.). 88-Not Attempted due to Medical Conditions or Safety Concerns. Bed Mobility: 6 Transfers (B,C,W/C): 6 Gait: 6 Indoor Mobility (Ambulation): Independent Stairs: Needed Some Help Prior Devices Use: Walker son reports patient is inactive at home PLOF PT Evaluation-Current Subjective Patient requires encouragement to participate with PT. Son present. Pain Numeric Pain Scale: 0-No Pain Location: No Pain Reported Objective Patient Orientation: Person, Time, Situation Attachments: Oxygen (3L O2 NC) ROM/Strength ROM Lower Extremities bilateral LE WFL Strength Lower Extremities 3/5 grossly bilateral LE Integumentary/Posture Integumentary refer to nursing notes Bowel Incontinence: No Bladder Incontinence: No Posture kyphotic Neuromuscular (Tone, Coordination, Reflexes) grossly intact Sensory Vision: Functional Hearing: Hearing Aid/Aides Sensation Right Lower Extremit: Intact Sensation Left Lower Extremity: Intact Transfers Roll Left to Right (QC): 5 Sit to Lying (QC): 5 Lying to Sitting/Side of Bed(Q: 5 Sit to Stand (QC): 3 Chair/Ozx-dt-Zfwxv Xfer(QC): 3 patient is impulsive to sit to chair and is unaware of safety concerns with this Gait Does the Patient Walk?: Yes Mode of Locomotion: Walk Anticipated Mode of Locomotion: Walk Walk 10 feet (QC): 3 Walk 50 ft with 2 Turns(QC): 3 Walk 150 ft (QC): 88 Gait Assistive Device: FWW Comments/Gait Description slow, slightly unsteady with FWW Balance Sitting Static: Normal Sitting Dynamic: Normal Standing Static: Fair Standing Dynamic: Fair Assessment/Needs 74 y.o. male, with noted increase SOA with minimal activity, will benefit from skilled PT to address functional strength and mobility to improve pulmonary function to return to home with family at maximum LOF. Rehab Potential: Fair PT Prison Goals Prison Goals PT Prison Goals Time Frame: Jul 12, 2019 Roll Left & Right (QC): 6 Sit to Lying (QC): 6 Lying-Sitting on Side/Bed(QC): 6 Sit to Stand (QC): 6 Chair/Khn-lx-Tkzrk Xfer(QC): 6 Toilet Transfer (QC): 6 Car Transfer (QC): 6 Does the Patient Walk: Yes Walk 10 feet (QC): 6 Walk 50ft with 2 Turns (QC): 6 Walk 150 ft (QC): 6 Walking 10ft on Uneven Surface: 6 1 Step (curb) (QC): 6 PT Plan Problem List Problem List: Activity Tolerance, Functional Strength, Safety, Balance, Gait, Transfer, Bed Mobility Treatment/Plan Treatment Plan: Continue Plan of Care Treatment Plan: Bed Mobility, Education, Functional Activity Onelia, Functional Strength, Gait, Safety, Therapeutic Exercise, Transfers Treatment Duration: Jul 12, 2019 Frequency: 6 times per week Estimated Hrs Per Day: .25 hour per day Patient and/or Family Agrees t: Yes Time/GCodes Time In: 1041 Time Out: 1052 Total Billed Treatment Time: 11 Total Billed Treatment 1 visit EVModC 11 min PRANAV SAMANO PT Jun 23, 2019 11:30
[2019-06-23 12:00] VITALS: BP 111/66
--- NOTE | 2019-06-23 13:03 | NUR ---
"RD ASSESSMENT PMHx: COPD; CA(prostate) PT INTERACTION: Pt was awake and pleasant during nutrition follow-up. Pt states he has been eating pretty good since last assessment. Pt states tolerating his nutrition supplementation of Ensure Enlive TID pretty well and drinking them. Note avg PO intake of 18% x4d, per chart review. Pt states no issues with n/v/c/d since last assessment. Note last BM was 2/6 and pt not currently on bowel regimen per chart review. ABNORMAL NUTRITION-RELATED LAB VALUES LOW: HIGH: BUN 39; glu 142; Mg 2.5 Est. kcal needs: 9923-3761 kcal | 25-30 kcal/kg Est. Pro needs: 59-71 g Pro | 1.0-1.2 g Pro/kg PES STATEMENT: Inadequate oral intake (NI-2.1) related to loss of appetite | as evidenced by pt interview | avg PO intake 18% x4d INTERVENTION: Continue with current diet order of Regular diet. Continue with current supplementation order of Ensure Enlive with meals TID, for increased kcal intake. Provides 350 kcal and 13 g Pro per serving. Will continue to follow and reassess as pt needs and status change. MONITOR/EVALUATE: PO Intake; Plan of Care; Hydration Status; Weight Status; Lab Values Alvaro Parham, MS, RD, LD"
--- NOTE | 2019-06-23 14:11 | Occupational Therapy Eval ---
OT Evaluation-General/PLF Medical Diagnosis Admission Date Jun 15, 2019 at 11:45 Medical Diagnosis: severe sepsis/COPD Onset Date: Jun 15, 2019 Therapy Diagnosis Therapy Diagnosis: Weakness Height/Weight Height (Feet): 5 Height (Inches): 7.00 Weight (Pounds): 120 Weight (Ounces): 0.0 Precautions Precautions/Isolations: Fall Prevention, Standard Precautions Safety Interventions: Notify Family, Reorient-PRN Weight Bear Status Weight Bearing Restriction: Weight Bearing/Tolerated Referral Physician: Colin Referral Reason: Activity Tolerance, Self Care, Evaluation/Treatment, Strengthening/ROM Medical History Pertinent Medical History: COPD, Smoking Additional Medical History Prostate CA Current History Son in room and reports that pt. began having difficulty breathing. Was up all night coughing. The next morning he fell in bathroom. Son called ambulance. Reviewed History: Yes Social History Home: Single Level Current Living Status: Children Entry Into Home: Stairs With Railing Steps Into Home: 3 ADL-Prior Level of Function SCALE: Activities may be completed with or without assistive devices. 2-Kjboxtzlft-fxzcutv completes the activity by him/herself with no assistance from a helper. 5-Set-up or Clean-up Assistance-helper sets up or cleans up; patient completes activity. Eva assists only prior to or following the activity. 4-Supervision or Touching Assistance-helper provides verbal cues and/or touching/steadying and/or contact guard assistance as patient completes activity. Assistance may be provided throughout the activity or intermittently. 3-Partial/Moderate Assistance-helper does LESS THAN HALF the effort. Eva lifts, holds or supports trunk or limbs, but provides less than half the effort. 2-Substantial/Maximal Assistance-helper does MORE THAN HALF the effort. Eva lifts or holds trunk or limbs and provides more than half the effort. 7-Jrafsjvxi-snunie does ALL the effort. Patient does none of the effort to complete the activity. Or, the assistance of 2 or more helpers is required for the patient to complete the activity. If activity was not attempted, code reason: 7-Patient Refused. 9-Not Applicable-not attempted and the patient did not perform the activity before the current illness, exacerbation or injury. 10-Not Attempted due to Environmental Limitations-(lack of equipment, weather restraints, etc.). 88-Not Attempted due to Medical Conditions or Safety Concerns. ADL PLOF Comments Pt. and son reports that pt. was independent with daily skills. Uses a walker. Does not drive and family assists with shopping/cleaning/cooking. Pt. wears oxygen at home. Self Care: Independent Functional Cognition: Independent DME/Equipment: Tub/Shower DME/Equipment Comments Pt. has walker Drive Self: No OT Current Status Subjective No pain reported. 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 Appearance Pt. up in chair. Is reluctant at first to participate, but is encouraged by nursing and OT. Mental Status/Objective Patient Orientation: Person, Place Current Hand Dominance: Right Upper Extremity ROM WFL Upper Extremity Strength 3/5 bilateral UE Edema: Noted edema in bilateral UE in upper arm region. ADL-Treatment On/Off Footwear (QC): 4 (SBA to bring feet up to him to doff/don slipper socks.) Toileting Hygiene (QC): 4 (SBA) Toilet transfer (4) SBA Other Treatments Pt. up in chair. Doffs/dons slipper socks. Declines other ADLs at this time. OT encourages pt. to ambulate, use bathroom. Pt. states that he does not need to. Nursing comes into room and encourages pt. to attempt toileting, as he had catheter removed recently. Pt. stands with CGA and ambulates into bathroom. Transfers to toilet with CGA. Urinates small amount. Ambulates back to bed with CGA and walker. Pt. able to transfer to bed with SBA. All needs met. Education OT Patient Education: Correct positioning, Modified ADL techniques, Progress toward Goal/Update tx plan, Purpose of tx/functional activities, Reviewed precautions, Rehab process, Transfer techniques Teaching Recipient: Patient Teaching Methods: Demonstration, Discussion Response to Teaching: Verbalize Understanding, Return Demonstration OT Short Term Goals Short Term Goals Time Frame: Jun 30, 2019 Eatin Oral hygiene: 4 Toileting hygiene: 5 Shower/bathe self: 4 Upper body dressin Lower body dressin Putting on/taking off footwear: 4 OT [facility]sp Goals Assistant Professor Of Music Goals Time Frame: Jul 07, 2019 Eating (QC): 6 Oral Hygiene (QC): 6 Toileting Hygiene (QC): 6 Shower/Bathe Self (QC): 5 Upper Body Dressing (QC): 6 Lower Body Dressing (QC): 6 On/Off Footwear (QC): 6 Additional Goals: 1-Demonstrate ADL Tasks, 2-Verbalize Understanding, 3- ImproveStrength/Onelia 1=Demonstrate adherence to instructed precautions during ADL tasks. 2=Patient will verbalize/demonstrate understanding of assistive devices/modifications for ADL. 3=Patient will improve strength/tolerance for activity to enable patient to perform ADL's. OT Education/Plan Problem List/Assessment Assessment: Decreased Activ Tolerance, Dependent Transfers, Impaired I ADL's, Impaired Self-Care Skills Discharge Recommendations Plan/Recommendations: Continue POC Therapy Discharge Recommendati: Home & Family, Post Acute OT Treatment Plan/Plan of Care Treatment,Training & Education: Yes Patient would benefit from OT for education, treatment and training to promote independence in ADL's, mobility, safety and/or upper extremity function for ADL's. Plan of Care: ADL Retraining, Functional Mobility, UE Funct Exercise/Act Treatment Duration: Jul 07, 2019 Frequency: 5 times per week Estimated Hrs Per Day: .25 hour per day Agreement: Yes Rehab Potential: Fair Time/GCodes Start Time: 11:15 Stop Time: 11:30 Total Time Billed (hr/min): 15 Billed Treatment Time 1, EVM x 15minutes CARMEN BRANTLEY OT Jun 23, 2019 14:11
--- NOTE | 2019-06-23 15:02 | Pulmonary Progress Note ---
Subjective Time Seen by a Provider: 15:01 Sepsis Event Evaluation Height, Weight, BMI Height: 5'7.00" Weight: 120lbs. 0.0oz. [id number]; 18.00 BMI Method:Stated Exam Exam Vital Signs Date Time Temp Pulse Resp B/P (MAP) Pulse Ox O2 Delivery O2 Flow Rate FiO2 06/23/19 14:32 94 Nasal Cannula 2.00 06/23/19 12:00 36.6 79 24 111/66 (81) 96 High Flow N/C 2.00 06/23/19 10:02 94 Nasal Cannula 2.00 06/23/19 09:00 High Flow N/C 2.00 06/23/19 07:38 36.7 68 22 126/72 (90) 99 High Flow N/C 2.00 06/23/19 04:00 36.2 72 20 130/60 (83) 98 High Flow N/C 2.00 06/23/19 02:38 94 Nasal Cannula 2.00 06/23/19 00:00 36.6 75 20 105/53 (70) 95 High Flow N/C 2.00 06/22/19 21:00 High Flow N/C 2.00 06/22/19 20:00 36.9 96 22 118/58 (78) 97 High Flow N/C 2.00 06/22/19 19:05 94 Nasal Cannula 2.00 06/22/19 18:56 87 Room Air 06/22/19 16:00 36.8 92 22 122/57 (78) 92 Room Air I & O 06/23/19 07:00 Intake Total 1684 ml Output Total 1425 ml Balance 259 ml Height & Weight Height: 5'7.00" Weight: 120lbs. 0.0oz. [id number]; 18.00 BMI Method:Stated General Appearance: Anxious, Chronically ill, Mild Distress, Thin HEENT: PERRL/EOMI, Pharynx Normal Neck: Full Range of Motion, Non Tender, Supple Respiratory: Chest Non Tender, Accessory Muscle Use (mild), Decreased Breath Sounds, Respiratory Distress (mild), Wheezing Cardiovascular: Regular Rate, Rhythm (99), Normal Peripheral Pulses Capillary Refill: Less Than 3 Seconds Peripheral Pulses: 2+ Radial Pulses (R), 2+ Radial Pulses (L) Gastrointestinal: normal bowel sounds, non tender Extremity: Normal Capillary Refill, Non Tender, No Pedal Edema Neurologic/Psychiatric: Alert, Oriented x3 Skin: Normal Color, Warm/Dry Lymphatic: No Adenopathy Results Lab Laboratory Tests 06/22/19 05:23 06/23/19 03:30 Assessment/Plan Assessment/Plan Acute respiratory distress-- pt is more SOB -Currently on BiPAP - solumedrol Severe sepsis with pneumonia -Continue cefepime --Auto stopped will restart. -Wasserman cultures pending Lung nodule -Will repeat CT scan in 3mo. COPD -Duonebs -Oxygen Anemia -Monitor AKF -Monitor ELINA ALVAREZ DO Jun 23, 2019 15:02
--- NOTE | 2019-06-23 15:20 | NUR ---
IRF Evaluation Order received to evaluate patient for the ARU. Chart review complete and findings discussed with Dr. Shaw - patient accepted for admission; however, ARU unable to accommodate patient as the unit is capped at 8. CM/SS notified. Thank you for this referral.
--- NOTE | 2019-06-23 15:59 | Discharge Summary ---
Discharge Summary Hospital Course Was the Problem List Reviewed?: Yes Problems/Dx: (1) Severe sepsis Status: Resolved (2) Pneumonia Status: Acute Qualifiers: Qualified Codes: J18.9 - Pneumonia, unspecified organism (3) Elevated troponin I level Status: Acute (4) Acute kidney injury (nontraumatic) Status: Resolved (5) SOB (shortness of breath) Hospital Course Date of Admission: Jun 15, 2019 at 11:45 Admission Diagnosis : Family Physician/Provider[place] [place] Date of Discharge: 06/23/19 Discharge Diagnosis: Severe sepsis, PNA, AECOPD, Dementia Hospital Course: Hospital Course: Pt had an uneventful hospital course for eight days. He did present with severe sepsis with COPD exacerbation. Dr. Odonnell was managing him aggressively, maintained on Vapotherm that was ultimately weened off but we were in need of additional recovery for strengthening and was placed on swingbed to complete that treatment. Labs and Pending Lab Test: Laboratory Tests 06/23/19 03:30: White Blood Count 18.0H, Red Blood Count 3.79L, Hemoglobin 11.0L, Hematocrit 34L , Mean Corpuscular Volume 89, Mean Corpuscular Hemoglobin 29, Mean Corpuscular Hemoglobin Concent 33, Red Cell Distribution Width 15.9H, Platelet Count 220, Mean Platelet Volume 9.4, Neutrophils (%) (Auto) 87H, Lymphocytes (%) (Auto) 4L, Monocytes (%) (Auto) 9, Eosinophils (%) (Auto) 0, Basophils (%) (Auto) 0, Neutrophils # (Auto) 15.8H, Lymphocytes # (Auto) 0.7L, Monocytes # (Auto) 1.6H, Eosinophils # (Auto) 0.0, Basophils # (Auto) 0.0, Neutrophils % (Manual) 89, Lymphocytes % (Manual) 3, Monocytes % (Manual) 8, Blood Morphology Comment NORMAL, Sodium Level 140, Potassium Level 4.6, Chloride Level 102, Carbon Dioxide Level 29, Anion Gap 9, Blood Urea Nitrogen 39H, Creatinine 1.25, Estimat Glomerular Filtration Rate 56, BUN/Creatinine Ratio 31, Glucose Level 142H, Calcium Level 8.5, Phosphorus Level 3.1, Magnesium Level 2.5H Microbiology 06/15/19 Urine Culture - Final, Complete NO GROWTH 06/15/19 MRSA Screen - Final, Complete MRSA not isolated 06/15/19 Blood Culture - Final, Complete No growth Home Meds Active Reported Tylenol Extra Strength (Acetaminophen) 500 Mg Tablet 1,000 Mg PO Q6H PRN Atorvastatin Calcium 40 Mg Tablet 20 Mg PO HS TAKES 1/2 (40MG) TABLET Symbicort 160-4.5 Mcg Inhaler (Budesonide/Formoterol Fumarate) 10.2 Gm Hfa.aer.ad 2 Puff IH BID Potassium Chloride 20 Meq Tab.er.prt 10 Meq PO BID TAKES 1/2 (20MEQ) TABLET Aspir 81 (Aspirin) 81 Mg Tablet.dr 81 Mg PO DAILY Furosemide 20 Mg Tablet 20 Mg PO DAILY Protonix (Pantoprazole Sodium) 40 Mg Tablet.dr 40 Mg PO DAILY Sucralfate 1 Gm Tablet 1 Gm PO ACHS Proair Hfa (Albuterol Sulfate) 1 Puff Puff 2 Puff IH QID PRN Assessment/Pt Instructions SWB Discharge Planning: <30 minutes discharge planning Discharge Instructions Discharge Diet: No Restrictions Activity as Tolerated: Yes Discharge Physical Examination Vital Signs Vital Signs Date Time Temp Pulse Resp B/P (MAP) Pulse Ox O2 Delivery O2 Flow Rate FiO2 06/23/19 14:32 94 Nasal Cannula 2.00 06/23/19 12:00 36.6 79 24 111/66 (81) 06/21/19 06:48 25 General Appearance: No Apparent Distress, WD/WN, Chronically ill Respiratory: No Accessory Muscle Use, No Respiratory Distress, Crackles, Decreased Breath Sounds, Wheezing Cardiovascular: Regular Rate, Rhythm, No Edema, No Gallop, No JVD, No Murmur, Normal Peripheral Pulses Neurologic/Psychiatric: Alert, Oriented x3, No Motor/Sensory Deficits, Normal Mood/Affect, Disoriented Allergies: Coded Allergies: Penicillins (Verified Allergy, Unknown, 09/09/18) Discharge Summary Date of Admission Jun 15, 2019 at 11:45 Date of Discharge Discharge Date: Jun 23, 2019 Discharge Diagnosis Assessment: (1) Severe sepsis (2) Pneumonia (3) Acute kidney injury (nontraumatic) (4) COPD with acute lower respiratory infection (5) Elevated troponin I level (6) Metabolic acidosis (7) DVT prophylaxis Plan: Weaned Vapotherm IV abx Monitor creat (1) Severe sepsis Status: Resolved (2) Pneumonia Status: Acute Qualifiers: Qualified Codes: J18.9 - Pneumonia, unspecified organism (3) Elevated troponin I level Status: Acute (4) Acute kidney injury (nontraumatic) Status: Resolved (5) SOB (shortness of breath) Clinical Quality Measures DVT/VTE Risk/Contraindication: Risk Factor Score Per Nursin RFS Level Per Nursing on Admit: 4+=Very High NILAM MORSE DO Jun 23, 2019 15:59
[2019-06-23] MEDS ORDERED: CEFEPIME INJECTION 1,000 MG in WATER (STERILE) FOR INJECTION 10 ML IV SCH (17:00)
--- NOTE | 2019-06-24 11:21 | Physician Query Clarification ---
PQ-Intro New Diagnosis Admission/Discharge Admission Date: Jun 15, 2019 at 11:45 Discharge Date: Jun 23, 2019 at 16:04 The medical record reflects the following clinical scenario: History/Risk Factors: Sepsis, pneumonia, COPD AE, Acute renal failure, Clinical Findings: Troponin 1 - 0.093 suspect related to pneumonia and COPD AE Treatment: IV Vancomycin, IV Cefepime, IV Solu-medrol Question: What condition best reflects the above clinical scenario? Please document a response in the Progress Noter or Discharge Summary. 1. MN type 2 2. Elevated troponin 1 can not be further specified 3. Other, with explanation of the clinical findings. 4. Clinically undetermined, no explanation for the clinical findings. PHYSICIAN RESPONSE What condition reflects above: 1 Please remember a lack of response to the above will prompt a phone page by CDI/Coding staff. In responding to this query, please exercise your independent professional judgment. The purpose of this communication is to more accurately reflect the complexity of your patients condition. The fact that a question is asked does not imply that any particular answer is desired or expected. Thank you for your timely response to this clarification. Requestors name: Effie THIS PHYSICIAN QUERY FORM IS A PERMANENT PART OF THE MEDICAL RECORD EFFIE HANNA Jun 24, 2019 11:21 NILAM MORSE DO Jun 24, 2019 12:19
== END 2019-06-23 16:04 | disposition swing bed (61) | DRG 871 ==
LOC: ER 09:06 → EDUNIT# 09:06 → ICU 11:45 → 4TH 06-17 08:11
PROVIDERS: ADMIT Internal Medicine; ATTEND Internal Medicine
PROC: 02HV33Z Insertion of Infusion Device into Superior Vena Cava, Percutaneous Approach (ICD-10-PCS; principal; 2019-06-15)
DX: A41.9 Sepsis, unspecified organism (principal); R65.20 Severe sepsis without septic shock; J18.9 Pneumonia, unspecified organism; N17.9 Acute kidney failure, unspecified; E87.2 Acidosis; J44.0 Chronic obstructive pulmonary disease with (acute) lower respiratory infection; J44.1 Chronic obstructive pulmonary disease with (acute) exacerbation; I21.A1 Myocardial infarction type 2; F17.210 Nicotine dependence, cigarettes, uncomplicated; R79.89 Other specified abnormal findings of blood chemistry; E78.5 Hyperlipidemia, unspecified; Z85.46 Personal history of malignant neoplasm of prostate; R91.1 Solitary pulmonary nodule
CPT/HCPCS: 36415; 36600; 71045; 71260; 80048; 80053; 81000; 82805; 83605; 83735; 83880; 84100; 84484; 85007; 85025; 85027; 85610; 85730; 87040; 87081; 87088; 87804; 93005; 94640; 94660; 94760; 96361; 96365; 96375; 96376

== ENCOUNTER 2019-06-23 16:00 | Inpatient (IN) | payer MEDICARE ==
[~2019-06-23 16:00] MED LIST changes: +ACET-2267 PO; +BUDE10.2 IH; +POTA20TA15 PO
[2019-06-23] MEDS ORDERED: CEFEPIME INJECTION 1,000 MG in WATER (STERILE) FOR INJECTION 10 ML IV SCH (16:15)
[2019-06-23] MEDS ORDERED: ACETAMINOPHEN 500 MG TAB (TYLENOL) PO PRN ×2 (16:15)
[2019-06-23] MEDS ORDERED: diphenhydrAMINE 25 MG TAB (BENADRYL) PO PRN (16:15)
[2019-06-23] MEDS ORDERED: ONDANSETRON 4 MG/2 ML (SDV) Z0FRAN IV PRN (16:15)
[2019-06-23] MEDS ORDERED: ANTACID SUSP 30 ML UDC (MYLANTA) PO PRN (16:15)
[2019-06-23] MEDS ORDERED: RT-ALBUTEROL SULF 2.5 MG/3 ML PRE-MIX VIAL INH PRN (16:15)
[2019-06-23] MEDS ORDERED: MELATONIN 3 MG TABLET PO PRN (16:15)
--- NOTE | 2019-06-23 16:30 | NUR ---
Swing Bed Note: Qualifies for swing bed for continued need of IV abx (Pneumonia) with continued SOA with monitoring et weaning of oxygen. Also qualifies for short term Physical et Occupational therapies for weakness recent illness. Thank you for this referral!
--- NOTE | 2019-06-23 16:34 | NUR ---
Admission Drug Regimen Review: Date: 06/23/19 Time: 163 Review Completed, No Issues found
[2019-06-23 17:12] VITALS: BP 115/65
[2019-06-23] MEDS: KCL 20 MEQ TAB (K-DUR) PO SCH (17:18)
[2019-06-23] MEDS: methylPREDNISolone 40 MG/ML (Solu-MEDROL) VIAL IV SCH (17:19)
[2019-06-23] MEDS: CEFEPIME INJECTION 1,000 MG in WATER (STERILE) FOR INJECTION 10 ML IV SCH (17:19)
[2019-06-23] MEDS: RT-ADVAIR HFA 115/21 MCG PER PUFF IH SCH (21:20)
[2019-06-23] MEDS: RT-ALBUTEROL/IPRATROPIUM 3 ML (DUONEB) VIAL INH SCH (21:20)
[2019-06-23] MEDS: SUCRALFATE 1 GM (CARAFATE) TAB PO SCH (21:25)
[2019-06-23] MEDS: SENNA W/DOCUSATE (SENOKOT S) TABLET PO SCH (21:25)
[2019-06-24] MEDS: methylPREDNISolone 40 MG/ML (Solu-MEDROL) VIAL IV SCH ×4 (00:53→18:46)
[2019-06-24] MEDS: RT-ALBUTEROL/IPRATROPIUM 3 ML (DUONEB) VIAL INH SCH ×4 (02:09→19:18)
[2019-06-24] MEDS: CEFEPIME INJECTION 1,000 MG in WATER (STERILE) FOR INJECTION 10 ML IV SCH ×3 (02:21→18:46)
[2019-06-24] MEDS: KCL 20 MEQ TAB (K-DUR) PO SCH ×2 (05:45→17:28)
[2019-06-24] MEDS: SUCRALFATE 1 GM (CARAFATE) TAB PO SCH ×4 (05:45→20:15)
[2019-06-24] MEDS: ENOXAPARIN 40 MG/0.4 ML (LOVENOX) SYR SC SCH (05:46)
[2019-06-24 06:07] LABS: BASOPHILS % (AUTO) 0 % (0-10); EOSINOPHILS % (AUTO) 0 % (0-10); HEMATOCRIT 34 % (40-54); HEMOGLOBIN 11.2 G/DL (13.3-17.7); LYMPHOCYTES # (AUTO) 0.6 X 10^3 (1.0-4.0); LYMPHOCYTES % (AUTO) 3 % (12-44); MEAN CORPUSCULAR HEMOGLOBIN 29 PG (25-34); MEAN CORPUSCULAR HGB CONC 33 G/DL (32-36); MEAN CORPUSCULAR VOLUME 90 FL (80-99); MEAN PLATELET VOLUME 9.6 FL (7.4-10.4); MONOCYTES # (AUTO) 1.2 X 10^3 (0.0-1.0); MONOCYTES % (AUTO) 6 % (0-12); NEUTROPHILS # (AUTO) 18.1 X 10^3 (1.8-7.8); NEUTROPHILS % (AUTO) 91 % (42-75); PLATELET COUNT 206 10^3/uL (130-400); RED CELL DISTRIBUTION WIDTH 15.6 % (10.0-14.5); WHITE BLOOD COUNT 19.9 10^3/uL (4.3-11.0)
[2019-06-24 06:10] VITALS: BP 142/66
[2019-06-24 06:25] LABS: ALANINE AMINOTRANSFERASE 41 U/L (0-55); ALBUMIN 2.7 GM/DL (3.2-4.5); ALKALINE PHOSPHATASE 41 U/L (40-136); BILIRUBIN,TOTAL 0.5 MG/DL (0.1-1.0); BUN/CREATININE RATIO 36; CALCIUM 8.3 MG/DL (8.5-10.1); CARBON DIOXIDE 29 MMOL/L (21-32); CHLORIDE 104 MMOL/L (98-107); CREATININE SERUM 1.12 MG/DL (0.60-1.30); GFR ESTIMATED > 60; GLUCOSE 131 MG/DL (70-105); POTASSIUM 4.5 MMOL/L (3.6-5.0); SODIUM 139 MMOL/L (135-145); TOTAL PROTEIN 4.9 GM/DL (6.4-8.2)
[2019-06-24] MEDS: SENNA W/DOCUSATE (SENOKOT S) TABLET PO SCH ×2 (08:58→20:15)
[2019-06-24] MEDS: FUROSEMIDE 20 MG (LASIX) TAB PO SCH (08:58)
[2019-06-24] MEDS: ASPIRIN E.C. 81 MG (ECOTRIN) TAB PO SCH (08:58)
[2019-06-24] MEDS: PANTOPRAZOLE 40 MG (PROTONIX) TAB PO SCH (08:59)
[2019-06-24] MEDS: RT-ADVAIR HFA 115/21 MCG PER PUFF IH SCH ×2 (10:33→19:18)
--- NOTE | 2019-06-24 10:36 | Physical Therapy Evaluation ---
PT Evaluation-General Medical Diagnosis Admission Date Jun 23, 2019 at 16:07 Medical Diagnosis: severe sepsis/COPD Onset Date: Jun 15, 2019 Therapy Diagnosis Therapy Diagnosis: impaired mobility, strength, endurance Height/Weight Height (Feet): 5 Height (Inches): 7.00 Weight (Pounds): 120 Weight (Ounces): 0.0 Precautions Precautions/Isolations: Fall Prevention, Standard Precautions Referral Physician: Roxanne Shaw DO Reason for Referral: Evaluation/Treatment Medical History Pertinent Medical History: COPD, Smoking Reviewed History: Yes Social History Home: Single Level Current Living Status: Children Entry Into Home: Stairs With Railing PT Steps Into Home: 3 Prior Prior Level of Function SCALE: Activities may be completed with or without assistive devices. 7-Xlyzwjiakh-jqqwmeq completes the activity by him/herself with no assistance from a helper. 5-Set-up or Clean-up Assistance-helper sets up or cleans up; patient completes activity. [place] assists only prior to or following the activity. 4-Supervision or Touching Assistance-helper provides verbal cues and/or touching/steadying and/or contact guard assistance as patient completes activity. Assistance may be provided throughout the activity or intermittently. 3-Partial/Moderate Assistance-helper does LESS THAN HALF the effort. [place] lifts, holds or supports trunk or limbs, but provides less than half the effort. 2-Substantial/Maximal Assistance-helper does MORE THAN HALF the effort. [place] lifts or holds trunk or limbs and provides more than half the effort. 0-Rtyzvlznl-llklwt does ALL the effort. Patient does none of the effort to complete the activity. Or, the assistance of 2 or more helpers is required for the patient to complete the activity. If activity was not attempted, code reason: 7-Patient Refused. 9-Not Applicable-not attempted and the patient did not perform the activity before the current illness, exacerbation or injury. 10-Not Attempted due to Environmental Limitations-(lack of equipment, weather restraints, etc.). 88-Not Attempted due to Medical Conditions or Safety Concerns. Bed Mobility: 6 Transfers (B,C,W/C): 6 Gait: 6 Indoor Mobility (Ambulation): Independent Stairs: Needed Some Help PT Evaluation-Current Subjective Patient in bed pre tx, agrees to PT with encouragement from son who is in the room, patient is reluctant to participate with any activity unless his son is there to encourage him. Patient has no complaints of pain. Pt/Family Goals none stated Objective Patient Orientation: Person, Unable to Assess Attachments: Oxygen very [place], son says patient just wants to leave and go home ROM/Strength ROM Lower Extremities WNL Strength Lower Extremities 3+/5 gross BLE Sensory Vision: Functional Hearing: Hearing Aid/Aides Sensation Right Lower Extremit: Intact Sensation Left Lower Extremity: Intact Transfers Roll Left to Right (QC): 6 Lying to Sitting/Side of Bed(Q: 6 Sit to Stand (QC): 4 Chair/Flq-oj-Txwva Xfer(QC): 4 CGA for sit to stand and transfers, slightly impulsive, slightly agitated Gait Does the Patient Walk?: Yes Mode of Locomotion: Walk Anticipated Mode of Locomotion: Walk Walk 10 feet (QC): 4 Walk 50 ft with 2 Turns(QC): 4 Distance: 80 Gait Assistive Device: FWW Comments/Gait Description CGA, slow but steady ambulation, needs occasional cues for direction Balance Sitting Static: Normal Sitting Dynamic: Normal Standing Static: Fair Standing Dynamic: Fair Treatment BLE seated exercises x20 (AP, LAQ) Assessment/Needs Patient has impaired mobility, strength, endurance. He is reluctant to participate in PT. Son says patient just wants to leave the hospital and go home. Patient refuses to participate unless son is there to convince him to participate. Rehab Potential: Guarded PT Interactive Art Director Goals Interactive Art Director Goals PT [facility] Goals Time Frame: Jul 01, 2019 Roll Left & Right (QC): 6 Sit to Lying (QC): 6 Lying-Sitting on Side/Bed(QC): 6 Sit to Stand (QC): 5 Chair/Bgt-on-Xfnph Xfer(QC): 5 Walk 10 feet (QC): 4 Walk 50ft with 2 Turns (QC): 4 Walk 150 ft (QC): 4 1 Step (curb) (QC): 4 4 Steps (QC): 4 PT Plan Problem List Problem List: Activity Tolerance, Functional Strength, Safety, Balance, Gait, Transfer Treatment/Plan Treatment Plan: Continue Plan of Care Treatment Plan: Education, Functional Activity [place], Functional Strength, Gait, Safety, Therapeutic Exercise, Transfers Treatment Duration: Jul 01, 2019 Frequency: 6 times per week Estimated Hrs Per Day: .25 hour per day Patient and/or Family Agrees t: Yes Safety Risks/Education Patient Education: Gait Training, Transfer Techniques, Correct Positioning, Safety Issues Teaching Recipient: Patient Teaching Methods: Demonstration, Discussion Response to Teaching: Reinforcement Needed Discharge Recommendations Plan Patient will perform bed mobility and transfer training, balance and endurance training, functional strengthening, stair training, gait training, and education, to improve functional mobility and independence at home. Therapy Discharge Recommendati: Home & Family Time/GCodes Time In: 1005 Time Out: 1035 Total Billed Treatment Time: 30 Total Billed Treatment 1 visit VERN 15' FA 15' LUCAS MEAD PT Jun 24, 2019 10:36
--- NOTE | 2019-06-24 11:05 | Progress Note - Hospitalist ---
Subjective HPI/CC On Admission Date Seen by Provider: Jun 24, 2019 Time Seen by Provider: 10:00 Subjective/Events-last exam Pt doing pretty good Participating in therapy Son at the bedside Overall pt is slow recovery but he is doing a lot better Eating and drinking a little better Review of Systems General: Fatigue Pulmonary: Dyspnea, Cough Neurological: Confusion Objective Exam Vital Signs Vital Signs Date Time Temp Pulse Resp B/P (MAP) Pulse Ox O2 Delivery O2 Flow Rate FiO2 06/24/19 19:18 97 Nasal Cannula 1.00 06/24/19 17:33 36.8 93 20 114/69 (84) Capillary Refill : Less Than 3 Seconds General Appearance: No Apparent Distress, WD/WN, Chronically ill Respiratory: No Accessory Muscle Use, No Respiratory Distress, Crackles, Decreased Breath Sounds, Wheezing Neurologic/Psychiatric: Alert, Disoriented Results/Procedures Lab Laboratory Tests 06/24/19 05:48 Patient resulted labs reviewed. Assessment/Plan Assessment and Plan Assess & Plan/Chief Complaint Assessment: (1) s/p Severe sepsis (2) Pneumonia (3) Acute kidney injury (nontraumatic) (4) COPD with acute lower respiratory infection (5) Elevated troponin I level (6) Metabolic acidosis (7) DVT prophylaxis Plan: Weaned Vapotherm IV abx Monitor creat SB Diagnosis/Problems Diagnosis/Problems (1) Severe sepsis Status: Resolved Resolution Date/Time: 06/17/19 @ 16:46 (2) Respiratory failure Status: Resolved Resolution Date/Time: 09/16/18 @ 21:01 (3) Elevated troponin I level Status: Acute (4) COPD exacerbation Status: Resolved Resolution Date/Time: 09/23/18 @ 17:12 (5) Acute kidney injury (nontraumatic) Status: Resolved Resolution Date/Time: 06/17/19 @ 16:46 Clinical Quality Measures DVT/VTE Risk/Contraindication: Risk Factor Score Per Nursin NILAM MORSE DO Jun 24, 2019 11:05
--- NOTE | 2019-06-24 12:05 | Occupational Therapy Eval ---
OT Evaluation-General/PLF Medical Diagnosis Admission Date Jun 23, 2019 at 16:07 Medical Diagnosis: severe sepsis/COPD Onset Date: Jun 15, 2019 Therapy Diagnosis Therapy Diagnosis: impaired ADLs and functional mobility Height/Weight Height (Feet): 5 Height (Inches): 7.00 Weight (Pounds): 120 Weight (Ounces): 0.0 Precautions Precautions/Isolations: Standard Precautions Safety Interventions: None Referral Physician: Roxanne Shaw DO Referral Reason: Activity Tolerance, Evaluation/Treatment, Strengthening/ROM Medical History Pertinent Medical History: COPD, Smoking Additional Medical History He felt tired x1-2 weeks prior to being admitted to the hospital and he felt feverish and shaky. He had a fall in his bathroom causing him to hit his head. His son called the ambulance. Pt presented with severe sepsis and COPD exacerbation on 06/15/2019. He was then transferred to [facility] on 06/23/2019. Current History COPD, prostate cancer s/p surgical treatment, HLD Reviewed History: Yes Social History Home: Single Level Current Living Status: Children Entry Into Home: Stairs With Railing Steps Into Home: 3 ADL-Prior Level of Function SCALE: Activities may be completed with or without assistive devices. 1-Cscgxkspqu-vqzvclu completes the activity by him/herself with no assistance from a helper. 5-Set-up or Clean-up Assistance-helper sets up or cleans up; patient completes activity. [place] assists only prior to or following the activity. 4-Supervision or Touching Assistance-helper provides verbal cues and/or touching/steadying and/or contact guard assistance as patient completes activity. Assistance may be provided throughout the activity or intermittently. 3-Partial/Moderate Assistance-helper does LESS THAN HALF the effort. [place] lifts, holds or supports trunk or limbs, but provides less than half the effort. 2-Substantial/Maximal Assistance-helper does MORE THAN HALF the effort. [place] lifts or holds trunk or limbs and provides more than half the effort. 4-Zlsuxhfsz-oqjaex does ALL the effort. Patient does none of the effort to complete the activity. Or, the assistance of 2 or more helpers is required for the patient to complete the activity. If activity was not attempted, code reason: 7-Patient Refused. 9-Not Applicable-not attempted and the patient did not perform the activity before the current illness, exacerbation or injury. 10-Not Attempted due to Environmental Limitations-(lack of equipment, weather restraints, etc.). 88-Not Attempted due to Medical Conditions or Safety Concerns. ADL PLOF Comments Pt reports being able to complete a sponge bath and dress independently. His son states pt has not taken a bath/shower in approx a year but instead completes sponge baths. Pt denies needing assistance at PLOF but his son states he assisted pt with anything he needs although he did not go into further detail with level of assistance provided. Pt has a walker at home that he used x1 week after his last hospitalization but he had not been using it right before being admitted this time. Self Care: Needed Some Help Functional Cognition: Independent OT Current Status Subjective Pt sitting upright in recliner at start of session, agreeable to OT evaluation and tx. He did not report any pain. Mental Status/Objective Patient Orientation: Normal For Age Attachments: Oxygen Current Glasses/Contacts: Yes Hearing Aids: Yes Dentures/Partials: No Hand Dominance: Right Upper Extremity ROM WFL Upper Extremity Coordination WFL Upper Extremity Sensation he did not report any tingling/numbness Upper Extremity Strength 3+/5 ADL-Treatment Eating (QC): 6 (per son report) Oral Hygiene (QC): 7 (pt declined on this date stating he only has 1 tooth) Shower/Bathe Self (QC): 4 (CGA in stance. Pt able to complete all parts of sponge bath) Upper Body Dressing (QC): 3 (Pt required assistance with tying/untying hospital gown. He was able to take gown on/off of arms.) Lower Body Dressing (QC): 7 (pt not wearing briefs/pants, declined donning any on this date.) On/Off Footwear (QC): 6 (Pt able to don/doff BLE socks) Toileting Hygiene (QC): 7 Other Treatments Pt sitting in recliner throughout session, provided information about PLOF and home set up. Pt's son provided information and corrected information pt gave. Pt then completed ADL session, completing sit to/from stand with CGA. Post OT tx, pt seated upright in recliner, call light in reach and all needs met. Education OT Patient Education: Correct positioning, Energy conservation, Modified ADL techniques, Progress toward Goal/Update tx plan, Purpose of tx/functional activities, Transfer techniques Teaching Recipient: Patient, Family Teaching Methods: Demonstration, Discussion Response to Teaching: Verbalize Understanding, Return Demonstration OT Correctional Case Records Supervisor Goals Correctional Case Records Supervisor Goals Time Frame: Jul 04, 2019 Toileting Hygiene (QC): 6 Shower/Bathe Self (QC): 6 (sponge bath) Upper Body Dressing (QC): 6 Lower Body Dressing (QC): 6 Additional Goals: 1-Demonstrate ADL Tasks, 2-Verbalize Understanding, 3- ImproveStrength/[place] 1=Demonstrate adherence to instructed precautions during ADL tasks. 2=Patient will verbalize/demonstrate understanding of assistive devices/modifica tions for ADL. 3=Patient will improve strength/tolerance for activity to enable patient to perform ADL's. OT Education/Plan Problem List/Assessment Assessment: Decreased Activ Tolerance, Decreased UE Strength, Impaired I ADL's, Impaired Self-Care Skills Discharge Recommendations Plan/Recommendations: Continue POC Treatment Plan/Plan of Care Treatment,Training & Education: Yes Patient would benefit from OT for education, treatment and training to promote independence in ADL's, mobility, safety and/or upper extremity function for ADL's. Plan of Care: ADL Retraining, Caregiver Training, Functional Mobility, UE Funct Exercise/Act Treatment Duration: Jul 04, 2019 Frequency: 5 times per week Estimated Hrs Per Day: .25 hour per day Rehab Potential: Guarded Time/GCodes Start Time: 11:34 Stop Time: 11:53 Total Time Billed (hr/min): 19 Billed Treatment Time 1, CAMILLE GARAY OT Jun 24, 2019 12:05
[2019-06-24 17:33] VITALS: BP 114/69
[2019-06-25] MEDS: methylPREDNISolone 40 MG/ML (Solu-MEDROL) VIAL IV SCH ×2 (01:20→05:44)
[2019-06-25] MEDS: RT-ALBUTEROL/IPRATROPIUM 3 ML (DUONEB) VIAL INH SCH ×3 (01:43→18:41)
[2019-06-25] MEDS: CEFEPIME INJECTION 1,000 MG in WATER (STERILE) FOR INJECTION 10 ML IV SCH ×3 (02:04→18:21)
[2019-06-25 05:23] LABS: BASOPHILS % (AUTO) 0 % (0-10); EOSINOPHILS % (AUTO) 0 % (0-10); HEMATOCRIT 34 % (40-54); HEMOGLOBIN 10.8 G/DL (13.3-17.7); LYMPHOCYTES # (AUTO) 0.5 X 10^3 (1.0-4.0); LYMPHOCYTES % (AUTO) 2 % (12-44); MEAN CORPUSCULAR HEMOGLOBIN 28 PG (25-34); MEAN CORPUSCULAR HGB CONC 32 G/DL (32-36); MEAN CORPUSCULAR VOLUME 89 FL (80-99); MEAN PLATELET VOLUME 9.9 FL (7.4-10.4); MONOCYTES # (AUTO) 1.4 X 10^3 (0.0-1.0); MONOCYTES % (AUTO) 7 % (0-12); NEUTROPHILS # (AUTO) 19.7 X 10^3 (1.8-7.8); NEUTROPHILS % (AUTO) 91 % (42-75); PLATELET COUNT 217 10^3/uL (130-400); RED CELL DISTRIBUTION WIDTH 15.9 % (10.0-14.5); WHITE BLOOD COUNT 21.6 10^3/uL (4.3-11.0)
[2019-06-25 05:41] VITALS: BP 118/59
[2019-06-25] MEDS: SUCRALFATE 1 GM (CARAFATE) TAB PO SCH ×4 (05:44→20:10)
[2019-06-25 05:50] LABS: ALANINE AMINOTRANSFERASE 59 U/L (0-55); ALBUMIN 2.7 GM/DL (3.2-4.5); ALKALINE PHOSPHATASE 45 U/L (40-136); BILIRUBIN,TOTAL 0.4 MG/DL (0.1-1.0); BUN/CREATININE RATIO 37; CALCIUM 8.3 MG/DL (8.5-10.1); CARBON DIOXIDE 28 MMOL/L (21-32); CHLORIDE 103 MMOL/L (98-107); CREATININE SERUM 1.15 MG/DL (0.60-1.30); GFR ESTIMATED > 60; GLUCOSE 139 MG/DL (70-105); POTASSIUM 4.7 MMOL/L (3.6-5.0); SODIUM 137 MMOL/L (135-145); TOTAL PROTEIN 4.8 GM/DL (6.4-8.2)
[2019-06-25] MEDS: KCL 20 MEQ TAB (K-DUR) PO SCH ×2 (06:02→18:21)
--- NOTE | 2019-06-25 06:18 | Pulmonary Progress Note ---
Subjective Date Seen by a Provider: Jun 25, 2019 Time Seen by a Provider: 06:16 Subjective/Events-last exam No complications noted. Sepsis Event Evaluation Height, Weight, BMI Height: 5'7.00" Weight: 120lbs. 0.0oz. [id number]; 18.00 BMI Method:Stated Exam Exam Vital Signs Date Time Temp Pulse Resp B/P (MAP) Pulse Ox O2 Delivery O2 Flow Rate FiO2 06/25/19 05:41 36.3 63 18 118/59 (78) 92 Nasal Cannula 1.00 06/25/19 01:43 95 Nasal Cannula 1.00 06/24/19 21:00 Nasal Cannula 2.00 06/24/19 19:18 97 Nasal Cannula 1.00 06/24/19 17:33 36.8 93 20 114/69 (84) 96 High Flow N/C 2.00 06/24/19 13:52 97 Nasal Cannula 3.00 06/24/19 10:28 97 Nasal Cannula 1.50 06/24/19 09:00 Nasal Cannula 2.00 I & O 06/25/19 07:00 Intake Total 1537 ml Output Total 675 ml Balance 862 ml Height & Weight Height: 5'7.00" Weight: 120lbs. 0.0oz. [id number]; 18.00 BMI Method:Stated General Appearance: No Apparent Distress, WD/WN, Chronically ill Respiratory: No Accessory Muscle Use, No Respiratory Distress, Crackles, Decreased Breath Sounds, Wheezing Capillary Refill: Less Than 3 Seconds Neurologic/Psychiatric: Alert, Disoriented Results Lab Laboratory Tests 06/24/19 05:48 06/25/19 05:10 Assessment/Plan Assessment/Plan Severe sepsis with pneumonia -Continue cefepime - Lung nodule -Will repeat CT scan in 3mo. COPD -Duonebs -Solumedrol -Oxygen Anemia -Monitor AKF -Monitor ELINA ALVAREZ DO Jun 25, 2019 06:18
--- NOTE | 2019-06-25 08:23 | Diagnostic Imaging Report ---
INDICATION: Heart disease. Comparison made with prior examination from 06/20/2019. FINDINGS: There is cardiomegaly. There is scarring in both lung bases. There is no pleural effusion or pneumothorax. Mediastinum is unremarkable. A right internal jugular central venous catheter has its tip in superior vena cava. IMPRESSION: Cardiomegaly and some scarring in both lung bases relatively unchanged when compared to prior examination. Dictated by: Dictated on workstation # [id number]
[2019-06-25] MEDS: ENOXAPARIN 40 MG/0.4 ML (LOVENOX) SYR SC SCH (08:32)
[2019-06-25] MEDS: PANTOPRAZOLE 40 MG (PROTONIX) TAB PO SCH (08:34)
[2019-06-25] MEDS: SENNA W/DOCUSATE (SENOKOT S) TABLET PO SCH ×2 (08:34→20:12)
[2019-06-25] MEDS: FUROSEMIDE 20 MG (LASIX) TAB PO SCH (08:34)
[2019-06-25] MEDS: ASPIRIN E.C. 81 MG (ECOTRIN) TAB PO SCH (08:35)
[2019-06-25] MEDS: RT-ADVAIR HFA 115/21 MCG PER PUFF IH SCH ×2 (09:34→18:41)
--- NOTE | 2019-06-25 11:09 | Progress Note - Hospitalist ---
Subjective HPI/CC On Admission Date Seen by Provider: Jun 25, 2019 Time Seen by Provider: 10:00 Subjective/Events-last exam Home O2 evaluation will be completed. Nebulizer treatment will be ordered. [facility] will be restarted that he has had before. We will discontinue Solumedrol and place on Prednisone taper dose. Will go home tomorrow and son lives with him. Review of Systems Pulmonary: Dyspnea Neurological: Confusion Objective Exam Vital Signs Vital Signs Date Time Temp Pulse Resp B/P (MAP) Pulse Ox O2 Delivery O2 Flow Rate FiO2 06/25/19 18:42 96 High Flow N/C 2.00 06/25/19 14:30 36.3 63 06/25/19 05:41 18 118/59 (78) Capillary Refill : Less Than 3 Seconds General Appearance: No Apparent Distress, WD/WN, Chronically ill, Thin Respiratory: Chest Non Tender, Lungs Clear, Normal Breath Sounds, No Accessory Muscle Use, No Respiratory Distress, Crackles (subtle) Cardiovascular: Regular Rate, Rhythm, No Edema, No Gallop, No JVD, No Murmur, Normal Peripheral Pulses Results/Procedures Lab Laboratory Tests 06/25/19 05:10 Patient resulted labs reviewed. Assessment/Plan Assessment and Plan Assess & Plan/Chief Complaint Assessment: (1) s/p Severe sepsis (2) Pneumonia (3) Acute kidney injury (nontraumatic) (4) COPD with acute lower respiratory infection (5) Elevated troponin I level (6) Metabolic acidosis (7) DVT prophylaxis Plan: Home O2 orders placed IV abx until DC then he will have completed treatment Monitor creat SB DC tomorrow Diagnosis/Problems Diagnosis/Problems (1) Severe sepsis Status: Resolved Resolution Date/Time: 06/17/19 @ 16:46 (2) Respiratory failure Status: Resolved Resolution Date/Time: 09/16/18 @ 21:01 (3) Elevated troponin I level Status: Acute (4) COPD exacerbation Status: Resolved Resolution Date/Time: 09/23/18 @ 17:12 (5) Acute kidney injury (nontraumatic) Status: Resolved Resolution Date/Time: 06/17/19 @ 16:46 Clinical Quality Measures DVT/VTE Risk/Contraindication: Risk Factor Score Per Nursin NILAM MORSE DO Jun 25, 2019 11:09
[2019-06-25] MEDS: predniSONE 20 MG TAB PO SCH (12:53)
--- NOTE | 2019-06-25 13:27 | Occupational Ther Daily Note ---
OT Current Status-Daily Note Subjective Pt. very [place]. Does not report pain. Appearance Pt. in bed. Reluctant to work with OT but agrees to do so when it is explained that he needs to get stronger to discharge home. Mental Status/Objective Patient Orientation: Person, Place Attachments: Oxygen ADL-Treatment Therapy Code Descriptions/Definitions Functional Dent Measure: 0=Not Assessed/NA 4=Minimal Assistance 1=Total Assistance 5=Supervision or Setup 2=Maximal Assistance 6=Modified Dent 3=Moderate Assistance 7=Complete IndependenceSCALE: Activities may be completed with or without assistive devices. 3-Muupzdoqcr-zqhnlge completes the activity by him/herself with no assistance from a helper. 5-Set-up or Clean-up Assistance-helper sets up or cleans up; patient completes activity. [place] assists only prior to or following the activity. 4-Supervision or Touching Assistance-helper provides verbal cues and/or touching/steadying and/or contact guard assistance as patient completes activity. Assistance may be provided throughout the activity or intermittently. 3-Partial/Moderate Assistance-helper does LESS THAN HALF the effort. [place] lifts, holds or supports trunk or limbs, but provides less than half the effort. 2-Substantial/Maximal Assistance-helper does MORE THAN HALF the effort. [place] lifts or holds trunk or limbs and provides more than half the effort. 1-Kjwosocfm-rgpjkp does ALL the effort. Patient does none of the effort to complete the activity. Or, the assistance of 2 or more helpers is required for the patient to complete the activity. If activity was not attempted, code reason: 7-Patient Refused. 9-Not Applicable-not attempted and the patient did not perform the activity before the current illness, exacerbation or injury. 10-Not Attempted due to Environmental Limitations-(lack of equipment, weather restraints, etc.). 88-Not Attempted due to Medical Conditions or Safety Concerns. Pt. in bed when OT enters room. OT issued and educated pt. on red theraband and pink hand therapy sponge to increase overall UE strength. Pt. reluctant to participate but does. Pt. completed 20 bilateral hand squeezes with therapy sponge, as well as 10 bilateral UE exercises x 2 exercises with red theraband. Pt. requires cues and encouragement to complete the exercises. States that he is "worn out." Pt. encouraged to get up to chair for lunch. Pt. declines at first, but is encouraged to sit up to gain strength. Pt. agrees, and transfers supine-sit with SBA, and then sit-stand and transfer to chair with SBA with walk er. All needs are met. Son in room and reports that pt. ambulated to bathroom earlier in day. Son with pt. Education OT Patient Education: Correct positioning, Exercise program, Modified ADL techniques, Progress toward Goal/Update tx plan, Purpose of tx/functional activities, Reviewed precautions, Rehab process, Transfer techniques Teaching Recipient: Patient Teaching Methods: Demonstration, Discussion Response to Teaching: Verbalize Understanding, Return Demonstration OT Wood Heel Back Liner Goals Wood Heel Back Liner Goals Time Frame: Jul 04, 2019 Toileting Hygiene (QC): 6 Shower/Bathe Self (QC): 6 (sponge bath) Upper Body Dressing (QC): 6 Lower Body Dressing (QC): 6 Additional Goals: 1-Demonstrate ADL Tasks, 2-Verbalize Understanding, 3- ImproveStrength/[place] 1=Demonstrate adherence to instructed precautions during ADL tasks. 2=Patient will verbalize/demonstrate understanding of assistive devices/mod ifications for ADL. 3=Patient will improve strength/tolerance for activity to enable patient to perform ADL's. OT Education/Plan Problem List/Assessment Assessment: Decreased Activ Tolerance, Decreased UE Strength, Impaired I ADL's, Impaired Self-Care Skills Discharge Recommendations Plan/Recommendations: Continue POC Treatment Plan/Plan of Care Treatment,Training & Education: Yes Patient would benefit from OT for education, treatment and training to promote independence in ADL's, mobility, safety and/or upper extremity function for ADL's. Plan of Care: ADL Retraining, Caregiver Training, Functional Mobility, UE Funct Exercise/Act Treatment Duration: Jul 04, 2019 Frequency: 5 times per week Estimated Hrs Per Day: .25 hour per day Agreement: Yes Rehab Potential: Fair Time/GCodes Start Time: 11:28 Stop Time: 11:43 Total Time Billed (hr/min): 15 Billed Treatment Time 1, CARMEN TOMAS OT Jun 25, 2019 13:27
[2019-06-25 14:30] VITALS: BP 118/59
--- NOTE | 2019-06-25 14:41 | Physical Therapy Daily Note ---
PT Daily Note-Current Subjective Patient in recliner pre tx, agrees to PT with encouragement from patient's son, has no complaints of pain. Appearance Patient in bed post tx with nurse call, phone, tray, all needs met, son in room. Mental Status Patient Orientation: Person, Unable to Assess (patient mumbles and doens't like to answer questions) Transfers SCALE: Activities may be completed with or without assistive devices. 0-Jytkfisgax-zfsqgkf completes the activity by him/herself with no assistance from a helper. 5-Set-up or Clean-up Assistance-helper sets up or cleans up; patient completes activity. [place] assists only prior to or following the activity. 4-Supervision or Touching Assistance-helper provides verbal cues and/or touching/steadying and/or contact guard assistance as patient completes activity. Assistance may be provided throughout the activity or intermittently. 3-Partial/Moderate Assistance-helper does LESS THAN HALF the effort. [place] lifts, holds or supports trunk or limbs, but provides less than half the effort. 2-Substantial/Maximal Assistance-helper does MORE THAN HALF the effort. [place] lifts or holds trunk or limbs and provides more than half the effort. 9-Zkbsobdpj-ypbpoc does ALL the effort. Patient does none of the effort to co mplete the activity. Or, the assistance of 2 or more helpers is required for the patient to complete the activity. If activity was not attempted, code reason: 7-Patient Refused. 9-Not Applicable-not attempted and the patient did not perform the activity before the current illness, exacerbation or injury. 10-Not Attempted due to Environmental Limitations-(lack of equipment, weather restraints, etc.). 88-Not Attempted due to Medical Conditions or Safety Concerns. Roll Left & Right (QC): 6 Sit to Lying (QC): 6 Sit to Stand (QC): 4 Chair/Xqy-kt-Myewr Xfer(QC): 4 CGA for sit to stand and transfers Gait Training Distance: 180' Walk 10 feet (QC): 4 Walk 50 ft with 2 Turns(QC): 4 Walk 150 ft (QC): 4 Gait Persons Needed: 1 Gait Assistive Device: FWW Slow but steady ambulation, slightly SOB recovers with rest, tends to get out from behind walker when turning Treatments bed mobility and transfers, ambulation Assessment Current Status: Fair Progress improved endurance but patient doesn't want to participate and will only do it with encouragement from his son PT [facility] Goals Director Adult Goals PT [facility] Goals Time Frame: Jul 01, 2019 Roll Left & Right (QC): 6 Sit to Lying (QC): 6 Lying-Sitting on Side/Bed(QC): 6 Sit to Stand (QC): 5 Chair/Jeo-il-Jettz Xfer(QC): 5 Walk 10 feet (QC): 4 Walk 50ft with 2 Turns (QC): 4 Walk 150 ft (QC): 4 1 Step (curb) (QC): 4 4 Steps (QC): 4 PT Plan Problem List Problem List: Activity Tolerance, Functional Strength, Safety, Balance, Gait, Transfer Treatment/Plan Treatment Plan: Continue Plan of Care Treatment Plan: Education, Functional Activity [place], Functional Strength, Gait, Safety, Therapeutic Exercise, Transfers Treatment Duration: Jul 01, 2019 Frequency: 6 times per week Estimated Hrs Per Day: .25 hour per day Patient and/or Family Agrees t: Yes Safety Risks/Education Patient Education: Gait Training, Transfer Techniques, Correct Positioning, Sa fety Issues Teaching Recipient: Patient Teaching Methods: Demonstration, Discussion Response to Teaching: Reinforcement Needed Time/GCodes Time In: 1425 Time Out: 1435 Total Billed Treatment Time: 10 Total Billed Treatment 1 visit GT LUCAS ZHENG PT Jun 25, 2019 14:41
--- NOTE | 2019-06-25 17:42 | NUR ---
home O2 qualification. patient does qualify for O2
[2019-06-25 18:00] VITALS: BP 121/59
[2019-06-25] MEDS ORDERED: IPRA3AMP31 INH (19:24)
[2019-06-25] MEDS ORDERED: PRED10TA22 PO (19:24)
--- NOTE | 2019-06-25 19:26 | D/C HH Face to Face Order ---
D/C Face to Face Orders Reconcile Patient Problems Problems Reviewed?: Yes Instructions for Patient [facility], Patient Instructions/FollowUp: [facility] 1 week Physician to follow Patient: [facility] Discharge Diet for Home: No Restrictions Patient Problems: AECOPD s/p pneumonia Dementia [place] Goals for Patient: [place] Patient Data-Allergies,Ht & Wt Patient Allergies: Coded Allergies: Penicillins (Verified Allergy, Unknown, 09/09/18) Height (Feet): 5 Height (Inches): 7.00 Weight (Pounds): 120 Weight (Ounces): 0.0 Home Health Need/Face to Face Date of Face to Face: Jun 25, 2019 Clinical Findings: Generalized weakness and fatigue, Muscle weakness, Shortness of breath I have seen Pt uiwi-cq-dimd: Yes Discharged To: Home Diagnosis/Conditions: AECOPD s/p pneumonia Dementia [place] Home O2 new onset Patient is Homebound due to: CognItive deficits, Shortness of breath/distress Homebound Status Due to the above stated illness, injury or surgical procedure (medical condition or diagnosis) and associated clinical findings, the patient is homebound because of his/her inability to leave home except with aid of a supportive device and/or person AND leaving the home requires a considerable and taxing effort or is medically contraindicated. Pt req the following assistanc: Walker Home Health Nursing Orders Home Health Services Order: Nursing Services, Radio Script Writer-Evaluate & Treat, Physical Therapy-Evaluate & Treat Certify Stmt I certify that this patient is under my care and that I, a nurse practitioner or a physician; a farm assistant working with me, had a face to face encounter that - meets the physician face to face encounter requirements with this patient as dated. NILAM MORSE DO Jun 25, 2019 19:26
[2019-06-26] MEDS: CEFEPIME INJECTION 1,000 MG in WATER (STERILE) FOR INJECTION 10 ML IV SCH ×2 (02:23→09:45)
[2019-06-26 05:09] VITALS: BP 116/56
[2019-06-26] MEDS: KCL 20 MEQ TAB (K-DUR) PO SCH (06:30)
[2019-06-26] MEDS: SUCRALFATE 1 GM (CARAFATE) TAB PO SCH ×2 (06:30→11:48)
[2019-06-26] MEDS: predniSONE 20 MG TAB PO SCH (06:31)
[2019-06-26 06:47] LABS: BASOPHILS % (AUTO) 0 % (0-10); EOSINOPHILS % (AUTO) 0 % (0-10); HEMATOCRIT 34 % (40-54); HEMOGLOBIN 11.2 G/DL (13.3-17.7); LYMPHOCYTES # (AUTO) 1.4 X 10^3 (1.0-4.0); LYMPHOCYTES % (AUTO) 7 % (12-44); MEAN CORPUSCULAR HEMOGLOBIN 30 PG (25-34); MEAN CORPUSCULAR HGB CONC 33 G/DL (32-36); MEAN CORPUSCULAR VOLUME 89 FL (80-99); MEAN PLATELET VOLUME 10.1 FL (7.4-10.4); MONOCYTES # (AUTO) 1.3 X 10^3 (0.0-1.0); MONOCYTES % (AUTO) 6 % (0-12); NEUTROPHILS # (AUTO) 17.6 X 10^3 (1.8-7.8); NEUTROPHILS % (AUTO) 87 % (42-75); PLATELET COUNT 191 10^3/uL (130-400); RED CELL DISTRIBUTION WIDTH 15.8 % (10.0-14.5); WHITE BLOOD COUNT 20.3 10^3/uL (4.3-11.0)
[2019-06-26 07:17] LABS: ALANINE AMINOTRANSFERASE 60 U/L (0-55); ALBUMIN 2.6 GM/DL (3.2-4.5); ALKALINE PHOSPHATASE 49 U/L (40-136); BILIRUBIN,TOTAL 0.5 MG/DL (0.1-1.0); BUN/CREATININE RATIO 39; CALCIUM 8.3 MG/DL (8.5-10.1); CARBON DIOXIDE 27 MMOL/L (21-32); CHLORIDE 104 MMOL/L (98-107); CREATININE SERUM 1.04 MG/DL (0.60-1.30); GFR ESTIMATED > 60; GLUCOSE 134 MG/DL (70-105); POTASSIUM 4.1 MMOL/L (3.6-5.0); SODIUM 137 MMOL/L (135-145); TOTAL PROTEIN 4.9 GM/DL (6.4-8.2)
[2019-06-26 08:00] VITALS: BP 106/55
[2019-06-26] MEDS: ASPIRIN E.C. 81 MG (ECOTRIN) TAB PO SCH (08:15)
[2019-06-26] MEDS: PANTOPRAZOLE 40 MG (PROTONIX) TAB PO SCH (08:15)
[2019-06-26] MEDS: ENOXAPARIN 40 MG/0.4 ML (LOVENOX) SYR SC SCH (08:15)
[2019-06-26] MEDS: FUROSEMIDE 20 MG (LASIX) TAB PO SCH (08:15)
[2019-06-26] MEDS: SENNA W/DOCUSATE (SENOKOT S) TABLET PO SCH (08:15)
[2019-06-26] MEDS: RT-ALBUTEROL/IPRATROPIUM 3 ML (DUONEB) VIAL INH SCH (09:59)
[2019-06-26] MEDS: RT-ADVAIR HFA 115/21 MCG PER PUFF IH SCH (10:00)
--- NOTE | 2019-06-26 11:02 | Discharge Summary ---
Discharge Summary Hospital Course Was the Problem List Reviewed?: Yes Problems/Dx: (1) Severe sepsis Status: Resolved (2) Respiratory failure Status: Resolved (3) Elevated troponin I level Status: Acute (4) COPD exacerbation Status: Resolved (5) Acute kidney injury (nontraumatic) Status: Resolved Hospital Course Date of Admission: Jun 23, 2019 at 16:07 Admission Diagnosis : Family Physician/Provider: [facility] Date of Discharge: 06/26/19 Discharge Diagnosis: PNA, AECOPD, Dementia Hospital Course: Hospital course: Pt had an uneventful swingbed hospital course for four days. He was admitted and completed IV steroids, and IV antibiotics. Nebulizer treatments were maintained and he did meet criteria for home O2 and home health and those orders were placed and pt was in improved status at [place] with his son. Labs and Pending Lab Test: Laboratory Tests 06/26/19 06:40: White Blood Count 20.3H, Red Blood Count 3.80L, Hemoglobin 11.2L, Hematocrit 34L , Mean Corpuscular Volume 89, Mean Corpuscular Hemoglobin 30, Mean Corpuscular Hemoglobin Concent 33, Red Cell Distribution Width 15.8H, Platelet Count 191, Mean Platelet Volume 10.1, Neutrophils (%) (Auto) 87H, Lymphocytes (%) (Auto) 7L , Monocytes (%) (Auto) 6, Eosinophils (%) (Auto) 0, Basophils (%) (Auto) 0, Neutrophils # (Auto) 17.6H, Lymphocytes # (Auto) 1.4, Monocytes # (Auto) 1.3H, Eosinophils # (Auto) 0.0, Basophils # (Auto) 0.0, Sodium Level 137, Potassium Level 4.1, Chloride Level 104, Carbon Dioxide Level 27, Anion Gap 6, Blood Urea Nitrogen 41H, Creatinine 1.04, Estimat Glomerular Filtration Rate > 60, BUN/Creatinine Ratio 39, Glucose Level 134H, Calcium Level 8.3L, Corrected Calcium 9.4, Total Bilirubin 0.5, Aspartate Amino Transf (AST/SGOT) 24, Alanine Aminotransferase (ALT/SGPT) 60H, Alkaline Phosphatase 49, Total Protein 4.9L, Albumin 2.6L Home Meds Active Prednisone 10 Mg Tab.ds.pk 10 Mg PO DAILY Take 6 tabs(60mg)daily,decrease by 1 tab(10MG)daily. Iprat-Albut 0.5-3(2.5) mg/3 ml (Ipratropium/Albuterol Sulfate) 3 Ml Ampul.neb 3 Ml INH RTBID Reported Tylenol Extra Strength (Acetaminophen) 500 Mg Tablet 1,000 Mg PO Q6H PRN Atorvastatin Calcium 40 Mg Tablet 20 Mg PO HS TAKES 1/2 (40MG) TABLET Symbicort 160-4.5 Mcg Inhaler (Budesonide/Formoterol Fumarate) 10.2 Gm Hfa.aer.ad 2 Puff IH BID Potassium Chloride 20 Meq Tab.er.prt 10 Meq PO BID TAKES 1/2 (20MEQ) TABLET Aspir 81 (Aspirin) 81 Mg Tablet.dr 81 Mg PO DAILY Furosemide 20 Mg Tablet 20 Mg PO DAILY Protonix (Pantoprazole Sodium) 40 Mg Tablet.dr 40 Mg PO DAILY Sucralfate 1 Gm Tablet 1 Gm PO ACHS Proair Hfa (Albuterol Sulfate) 1 Puff Puff 2 Puff IH QID PRN Assessment/Pt Instructions [facility] 1 week Discharge Planning: <30 minutes discharge planning Discharge Instructions Discharge Diet: No Restrictions Discharge Physical Examination Vital Signs Vital Signs Date Time Temp Pulse Resp B/P (MAP) Pulse Ox O2 Delivery O2 Flow Rate FiO2 06/26/19 09:59 94 Nasal Cannula 2.00 06/26/19 08:00 36.6 64 20 106/55 (72) General Appearance: No Apparent Distress, WD/WN, Chronically ill Respiratory: Lungs Clear Allergies: Coded Allergies: Penicillins (Verified Allergy, Unknown, 09/09/18) Discharge Summary Date of Admission Jun 23, 2019 at 16:07 Date of Discharge Discharge Date: Jun 26, 2019 Discharge Diagnosis Assessment: (1) s/p Severe sepsis (2) Pneumonia (3) Acute kidney injury (nontraumatic) (4) COPD with acute lower respiratory infection (5) Elevated troponin I level (6) Metabolic acidosis (7) DVT prophylaxis Plan: Home O2 orders placed IV abx until DC then he will have completed treatment Monitor creat SB DC tomorrow (1) Severe sepsis Status: Resolved (2) Respiratory failure Status: Resolved (3) Elevated troponin I level Status: Acute (4) COPD exacerbation Status: Resolved (5) Acute kidney injury (nontraumatic) Status: Resolved Clinical Quality Measures DVT/VTE Risk/Contraindication: Risk Factor Score Per Nursin NILAM MORSE DO Jun 26, 2019 11:02
--- NOTE | 2019-06-26 11:26 | Therapy Team Discharge Summary ---
Therapy Discharge Summary Discharge Recommendations Date of Discharge Physical Therapy Patient declined PT on this date due to patient is going home with family. He is to receive home health per physician's report and would benefit from this to ensure patient is safe and functional in his home environment. Patient continues to require CGA to minimal assist with mobility for safety. Patient ambulates with FWW >150' with steady gait sequence. Patient declined to attempt steps on this date stating he could do this activity without difficulty. Goals address but not attained. Occupational Therapy Decreased Activ Tolerance, Decreased UE Strength, Impaired I ADL's, Impaired Self-Care Skills PT Wet Machine Operator Goals Half-Way Goals PT Half-Way Goals Time Frame: Jul 01, 2019 Roll Left to Right (QC): 6 Sit to Lying (QC): 6 Lying-Sitting on Side/Bed(QC): 6 Sit to Stand (QC): 5 Chair/Equ-vv-Xgijg Xfer(QC): 5 Walk 10 feet (QC): 4 Walk 50ft with 2 Turns (QC): 4 Walk 150 ft (QC): 4 1 Step (curb) (QC): 4 4 Steps (QC): 4 OT Wet Machine Operator Goals Wet Machine Operator Goals Time Frame: Jul 04, 2019 Shower/Bathe Self (QC): 6 (sponge bath) Upper Body Dressing (QC): 6 Lower Body Dressing (QC): 6 Toileting Hygiene (QC): 6 Additional Goals: 1-Demonstrate ADL Tasks, 2-Verbalize Understanding, 3-Improv eStrength/[place] 1=Demonstrate adherence to instructed precautions during ADL tasks. 2=Patient will verbalize/demonstrate understanding of assistive devices/modifications for ADL. 3=Patient will improve strength/tolerance for activity to enable patient to p erform ADL's. PRANAV SAMANO PT Jun 26, 2019 11:26
--- NOTE | 2019-06-26 12:48 | NUR ---
CM/SS to finalize discharge plan. Plan: The patient will return home with home health and medical equipment. Home Health: The patient had used [facility] in the past and asked to use them again. CM/SS called and faxed a referral to the agency. DME: The patient was already set up through [facility] for his walker and wanted to continue to us the agency. CM/SS called and faxed over the medical records with scripts. The agency stated they would be here today with the patients equipment. The patients family member was present in room and stated they would be the transportation for the patient. No other needs.
[2019-06-26 12:50] VITALS: BP 106/55
--- NOTE | 2019-06-26 12:50 | Pulmonary Progress Note ---
Subjective Time Seen by a Provider: 11:00 Subjective/Events-last exam Pt is going home today. Sepsis Event Evaluation Height, Weight, BMI Height: 5'7.00" Weight: 120lbs. 0.0oz. 54.787799ly; 18.00 BMI Method:Stated Exam Exam Vital Signs Date Time Temp Pulse Resp B/P (MAP) Pulse Ox O2 Delivery O2 Flow Rate FiO2 06/26/19 09:59 94 Nasal Cannula 2.00 06/26/19 08:15 High Flow N/C 2.00 06/26/19 08:00 36.6 64 20 106/55 (72) 94 High Flow N/C 2.00 06/26/19 05:09 36.4 65 20 116/56 (76) 95 High Flow N/C 2.00 06/25/19 20:10 High Flow N/C 2.00 06/25/19 18:42 96 High Flow N/C 2.00 06/25/19 18:41 96 High Flow N/C 2.00 06/25/19 18:00 36.3 76 20 121/59 (79) 97 High Flow N/C 2.00 06/25/19 14:30 36.3 63 94 I & O 06/26/19 07:00 Intake Total 1360 ml Output Total 650 ml Balance 710 ml Height & Weight Height: 5'7.00" Weight: 120lbs. 0.0oz. 54.464140sr; 18.00 BMI Method:Stated General Appearance: No Apparent Distress, WD/WN, Chronically ill Respiratory: No Accessory Muscle Use, No Respiratory Distress, Crackles, Decreased Breath Sounds, Wheezing Cardiovascular: Regular Rate, Rhythm, No Edema, No Gallop, No JVD, No Murmur, Normal Peripheral Pulses Capillary Refill: Less Than 3 Seconds Neurologic/Psychiatric: Alert, Disoriented Results Lab Laboratory Tests 06/25/19 05:10 06/26/19 06:40 Assessment/Plan Assessment/Plan pneumonia - resolving Lung nodule -Will repeat CT scan in 3mo. COPD -Duonebs -prednisone taper -Oxygen Anemia -Monitor AKF -Monitor ELINA ALVAREZ DO Jun 26, 2019 12:50
--- NOTE | 2019-06-26 13:35 | Therapy Team Discharge Summary ---
Therapy Discharge Summary Discharge Recommendations Date of Discharge Jun 26, 2019 at 12:50 Therapy D/C Recommendations: Home w/ Family Support, Occupational Therapy Home Care Occupational Therapy Pt. was seen briefly by occupational therapy to increase overall strength and independence. Pt. able to transfer with SBA. Pt. able to don slipper socks, and complete bathing with SBA. Pt. requires rest breaks and encouragement. Pt. to discharge home with son support. Recommend follow up occupational therapy to continue with strengthening. Decreased Activ Tolerance, Impaired I ADL's PT Snf Goals [employer]ations Representative Goals PT Snf Goals Time Frame: Jul 01, 2019 Roll Left to Right (QC): 6 Sit to Lying (QC): 6 Lying-Sitting on Side/Bed(QC): 6 Sit to Stand (QC): 5 Chair/Ubk-li-Wmipl Xfer(QC): 5 Walk 10 feet (QC): 4 Walk 50ft with 2 Turns (QC): 4 Walk 150 ft (QC): 4 1 Step (curb) (QC): 4 4 Steps (QC): 4 OT Financial Foundations Representative Goals Financial Foundations Representative Goals Time Frame: Jul 04, 2019 Shower/Bathe Self (QC): 6 (sponge bath not met) Upper Body Dressing (QC): 6 (met) Lower Body Dressing (QC): 6 (not met- declined practicing with OT.) Toileting Hygiene (QC): 6 (met per son.) Additional Goals: 1-Demonstrate ADL Tasks, 2-Verbalize Understanding, 3- ImproveStrength/[place] 1=Demonstrate adherence to instructed precautions during ADL tasks. 2=Patient will verbalize/demonstrate understanding of assistive devices/modifications for ADL. 3=Patient will improve strength/tolerance for activity to enable patient to perform ADL's. CARMEN BRANTLEY OT Jun 26, 2019 13:35
== END 2019-06-26 12:50 | disposition home health service (06) | DRG 193 ==
LOC: 4TH 16:07
PROVIDERS: ADMIT Internal Medicine; ATTEND Internal Medicine
DX: J18.9 Pneumonia, unspecified organism (principal); J44.0 Chronic obstructive pulmonary disease with (acute) lower respiratory infection; E87.2 Acidosis; J44.1 Chronic obstructive pulmonary disease with (acute) exacerbation; I21.A1 Myocardial infarction type 2; R91.1 Solitary pulmonary nodule; D64.9 Anemia, unspecified; F03.90 Unspecified dementia, unspecified severity, without behavioral disturbance, psychotic disturbance, mood disturbance, and anxiety; Z66 Do not resuscitate
CPT/HCPCS: 36415; 71045; 80053; 85025; 94640; 94760; 94761

== ENCOUNTER 2021-01-31 15:19 | Emergency (ER) | payer MEDICARE ==
[~2021-01-31] VITALS: Ht 165 cm; Wt 54.0 kg
[~2021-01-31 15:19] MED LIST changes: +ASPI-1238 PO; -ASPI-983 PO; +IPRA3AMP31 INH; +PRED10TA22 PO
--- NOTE | 2021-01-31 16:14 | ED Back Pain ---
General Chief Complaint: Back Problems Stated Complaint: BACK PAIN Nursing Triage Note: Patient brought to ED by son for back pain x's one week. Per pt he fell 01/29/21while in his bathroom. Reports he landed on his left side. Denies LOC or any injury to the head. Pt brought to room 03 via . Source of Information: Patient Exam Limitations: No Limitations History of Present Illness Date Seen by Provider: Jan 31, 2021 Time Seen by Provider: 15:51 Initial Comments Patient to the ER with his son and chief complaint for the past month or so has had some progressively worsening low back pain midline. He had a fall on Sunday, 2 days ago while getting off the toilet. He did not strike his head and has not had any loss of consciousness or other concerns. He had prostate cancer with subsequent prostatectomy many years ago. He is taking Tylenol as needed occasionally. He saw his primary care provider, Shelia and was told it was osteoarthritis. He is not on NSAIDs, blood thinners nor does have a history of heart or kidney disease. Allergies and Home Medications Allergies Coded Allergies: Penicillins (Verified Allergy, Unknown, 09/09/18) Patient Home Medication List Home Medication List Reviewed: Yes Acetaminophen (Tylenol Extra Strength) 500 Mg Tablet, 1,000 MG PO Q6H PRN for PAIN-MILD (1-4), (Reported) Entered as Reported by: ENMA MONTES on 06/18/19 1615 Albuterol Sulfate (Proair Hfa) 1 Puff Puff, 2 PUFF IH QID PRN for SHORTNESS OF BREATH, (Reported) Entered as Reported by: ENAM MONTES on 09/10/18 0947 Aspirin (Aspir 81) 81 Mg Tablet.dr, 81 MG PO DAILY, (Reported) Entered as Reported by: ELIZA STACK on 11/05/18 1109 Atorvastatin Calcium (Atorvastatin Calcium) 40 Mg Tablet, 20 MG PO HS, (Reported) Entered as Reported by: ENMA MONTES on 06/18/19 1614 Budesonide/Formoterol Fumarate (Symbicort 160-4.5 Mcg Inhaler) 10.2 Gm Hfa.a er.ad, 2 PUFF IH BID, (Reported) Entered as Reported by: JUDIT SWAN on 06/15/19 1607 Furosemide (Furosemide) 20 Mg Tablet, 20 MG PO DAILY, (Reported) Entered as Reported by: ELIZA STACK on 11/05/18 110 Ipratropium/Albuterol Sulfate (Iprat-Albut 0.5-3(2.5) mg/3 ml) 3 Ml Ampul.neb, 3 ML INH RTBID Prescribed by: NILAM MORSE on 06/25/191923 Pantoprazole Sodium (Protonix) 40 Mg Tablet.dr, 40 MG PO DAILY, (Reported) Entered as Reported by: ELIZA STACK on 11/05/18 110 Potassium Chloride (Potassium Chloride) 20 Meq Tab.er.prt, 10 MEQ PO BID, (Reported) Entered as Reported by: JUDIT SWAN on 06/15/19 160 Prednisone (Prednisone) 10 Mg Tab.ds.pk, 10 MG PO DAILY Prescribed by: NILAM MORSE on 06/25/191923 Sucralfate (Sucralfate) 1 Gm Tablet, 1 GM PO ACHS, (Reported) Entered as Reported by: ELIZA STACK on 11/05/181108 Review of Systems Constitutional: No chills, No diaphoresis EENTM: No ear discharge, No ear pain Cardiovascular: No chest pain, No palpitations Gastrointestinal: No abdominal pain, No nausea Genitourinary: No discharge, No dysuria Musculoskeletal: see HPI, back pain; No joint pain All Other Systems Reviewed Negative Unless Noted: Yes Past Vmeqohw-Jzwutg-Hcxlwr Hx Patient Social History Tobacco Use?: Yes Tobacco type used: Cigarettes Smoking Status: Current Everyday Smoker Substance use?: No Alcohol Use?: No Pt feels they are or have been: No Immunizations Up To Date Tetanus Booster (TDap): More than 5yrs PED Vaccines UTD: Yes Seasonal Allergies Seasonal Allergies: No Past Medical History Surgeries: Yes Bowel Surgery Respiratory: No Cardiac: No Neurological: No Reproductive Disorders: No Genitourinary: Yes Prostate Problems Gastrointestinal: No Musculoskeletal: No Endocrine: No HEENT: No Cancer: Yes (stomach or prostate, patient is unsure) Psychosocial: No Integumentary: No Family Medical History No Pertinent Family Hx Physical Exam Vital Signs Vital Signs - First Documented 01/31/21 15:48 Temp 36.4 Pulse 106 Resp 22 B/P (MAP) 102/66 Pulse Ox 97 O2 Delivery Room Air Capillary Refill : Less Than 3 Seconds Height, Weight, BMI Height: 5'7.00" Weight: 120lbs. 0.0oz. 54.094575uo; 19.00 BMI Method:Stated General Appearance: No Apparent Distress, Chronically ill, Thin HEENT: PERRL/EOMI, Pharynx Normal, Moist Mucous Membranes Neck: Full Range of Motion, Normal Inspection Cardiovascular: Regular Rate, Rhythm, Normal Peripheral Pulses Respiratory: No Accessory Muscle Use, No Respiratory Distress Back: Normal Inspection, No CVA Tenderness, Vertebral Tenderness (Mid thorax and lumbar spine tenderness to palpation without deformity or step-off) Extremity: Normal Capillary Refill Neurologic/Psychiatric: Alert, Oriented x3 Skin: Normal Color, Warm/Dry Progress/Results/Core Measures Results/Orders My Orders Orders - DEBRA THOMAS Thoracic Spine, 2 Views Only (01/31/21 16:03) Lumbar Spine - 2-3 Views (01/31/21 16:03) Ketorolac Injection (Toradol Injection) (01/31/21 16:15) Medications Given in ED Current Medications Medications Dose Ordered Sig/Mauricio Route Start Time Stop Time Status Last Admin Dose Admin Ketorolac Tromethamine 30 mg ONCE ONCE IM 01/31/21 16:15 01/31/21 16:16 DC 01/31/21 16:17 30 MG Vital Signs/I&O 01/31/21 01/31/21 15:48 15:48 Temp 36.4 36.4 Pulse 106 106 Resp 22 B/P (MAP) 102/66 102/66 (78) Pulse Ox 97 O2 Delivery Room Air Room Air Blood Pressure Mean: 78 Progress Progress Note : Time: 17:45 Progress Note The patient has received significant improvement in his pain from the Toradol s hot. He has a history of GERD so we will not continue long-term plan of NSAIDs at this time. You can discuss this with his primary care doctor. He can also do topical creams ice heat etc. We did offer to do a CT of his thoracolumbar spine to assess the chronicity of his vertebral fractures. We discussed that these are likely due to osteoporosis but the possibility of tumors exists and a CT or MRI would be necessary to discover this. At this time he would prefer to go home and set this up through his primary care office on his own time. This is an acceptable answer and we will provide him with discharge instructions and return precautions. Diagnostic Imaging Diagonstic Imaging: Xray Plain Films/CT/US/NM/MRI: other (Thoracolumbar spine) Comments [facility] [place], [place] NAME: SELENA JARAMILLO [facility] REC#: [id number] PT STATUS: REG ER : 1945 PHYSICIAN: DEBRA THOMAS MD ADMIT DATE: 01/31/21/ER Draft Date of Exam:01/31/21 THORACIC SPINE, 2 VIEWS ONLY EXAMINATION: Thoracic spine two views. HISTORY: Back pain. FINDINGS: There is a mild compression fracture of a lower thoracic vertebra which is likely T11. Cervicothoracic junction is not visualized. There is moderate disc height loss throughout the thoracic spine. There is a mild compression fracture of T7, T6, and T8. IMPRESSION: 1. Mild compression fractures of what are likely T6, T7, T8, and T11. These are age indeterminate. Cervicothoracic junction is not visualized. Consider thoracic spine CT and/or MRI to evaluate acuity and for additional fractures. Dictated on workstation # [id number] Dict: 01/31/21 1721 Trans: 01/31/21 1724 [id number] Interpreted by: JOSE GUDINO MD Electronically signed by: [facility] [place] [place] NAME: SELENA JARAMILLO [facility] REC#: [id number] PT STATUS: REG ER : 1945 PHYSICIAN: DEBRA THOMAS MD ADMIT DATE: 01/31/21/ER Draft Date of Exam:01/31/21 LUMBAR SPINE - 2-3 VIEWS INDICATION: 75-year-old male with low back pain COMPARISONS: None FINDINGS: AP and lateral views of lumbosacral spine show degenerative changes throughout the lumbar spine. There are compression fractures involving L5 and L1, age indeterminate. There is endplate sclerosis at multiple levels. Lumbar vertebral bodies otherwise appear reasonably well aligned. There is no definite evidence of spondylolysis or spondylolisthesis. There is extensive vascular calcifications of the aorta and visualized iliac arteries. Multiple pelvic clips are seen. IMPRESSION: 1. There is diffuse osteopenia with degenerative changes seen throughout the lumbar spine. There are compression fractures seen at L5 as well as L1, age indeterminate. Perhaps an MRI of the lumbar spine or a bone scan with CT SPECT may be of further value to assess the chronicity of these fractures. If these are acute or subacute fractures, the patient may benefit from vertebral augmentation such as kyphoplasty. Dictated on workstation # [id number] Dict: 01/31/21 1722 Trans: 01/31/21 1726 [facility] [id number] Interpreted by: JOSE G COURTNEY MD Electronically signed by: Reviewed: Reviewed by Me Departure Impression Primary Impression: Compression fracture of vertebral column Qualified Codes: S22.000A - Wedge compression fracture of unspecified thoracic vertebra, initial encounter for closed fracture Disposition: HOME, SELF-CARE Condition: Stable Departure-Patient Inst. Decision time for Depature: 17:46 Referrals: [facility] (PCP/Family) Primary Care Physician Patient Instructions: Vertebral Compression Fracture (DC) Add. Discharge Instructions: Apply heat to your back as necessary for pain. You may get a back brace to help stabilize your back from any pharmacy. Topical creams such as icy hot or Biofreeze are helpful. Tylenol 1000 mg every 8 hours as necessary for pain. Call your primary care provider and set up an appointment to discuss doing advanced imaging of your back including a CT or MRI with CT SPECT scan. If you are unable to urinate, have a bowel movement, or having weakness and numbness making you unable to stand or other worrisome symptoms then I would encourage you to return to the ER. All discharge instructions reviewed with patient and/or family. Voiced understanding. Copy Copies To 1: SOLE LARA TITUS J Jan 31, 2021 16:14
[2021-01-31] MEDS ORDERED: KETOROLAC 30 MG/ML VIAL IM ONE (16:15)
--- NOTE | 2021-01-31 17:25 | Diagnostic Imaging Report ---
EXAMINATION: Thoracic spine two views. HISTORY: Back pain. FINDINGS: There is a mild compression fracture of a lower thoracic vertebra which is likely T11. Cervicothoracic junction is not visualized. There is moderate disc height loss throughout the thoracic spine. There is a mild compression fracture of T7, T6, and T8. IMPRESSION: 1. Mild compression fractures of what are likely T6, T7, T8, and T11. These are age indeterminate. Cervicothoracic junction is not visualized. Consider thoracic spine CT and/or MRI to evaluate acuity and for additional fractures. Dictated by: Dictated on workstation # [id number]
--- NOTE | 2021-01-31 17:27 | Diagnostic Imaging Report ---
INDICATION: 75-year-old male with low back pain COMPARISONS: None FINDINGS: AP and lateral views of lumbosacral spine show degenerative changes throughout the lumbar spine. There are compression fractures involving L5 and L1, age indeterminate. There is endplate sclerosis at multiple levels. Lumbar vertebral bodies otherwise appear reasonably well aligned. There is no definite evidence of spondylolysis or spondylolisthesis. There is extensive vascular calcifications of the aorta and visualized iliac arteries. Multiple pelvic clips are seen. IMPRESSION: 1. There is diffuse osteopenia with degenerative changes seen throughout the lumbar spine. There are compression fractures seen at L5 as well as L1, age indeterminate. Perhaps an MRI of the lumbar spine or a bone scan with CT SPECT may be of further value to assess the chronicity of these fractures. If these are acute or subacute fractures, the patient may benefit from vertebral augmentation such as kyphoplasty. Dictated by: Dictated on workstation # [id number]
[2021-01-31 17:59] VITALS: BP 99/63
== END 2021-01-31 18:00 | disposition home or self-care (01) ==
LOC: EDUNIT# 15:19 → ER 15:20
DX: S32.010A Wedge compression fracture of first lumbar vertebra, initial encounter for closed fracture (principal); S32.050A Wedge compression fracture of fifth lumbar vertebra, initial encounter for closed fracture; F17.210 Nicotine dependence, cigarettes, uncomplicated; Z79.82 Long term (current) use of aspirin; Z79.52 Long term (current) use of systemic steroids; W18.30XA Fall on same level, unspecified, initial encounter
CPT/HCPCS: 72070; 72100; 96372

== ENCOUNTER 2021-02-16 14:03 | Emergency (ER) | payer MEDICARE ==
[~2021-02-16] VITALS: Ht 172.7 cm; Wt 54.4 kg
[2021-02-16 14:31] LABS: ABG BASE EXCESS -17.9 MMOL/L (-2.5-2.5); ABG OXYGEN SATURATION 97 % (94-100); ABG PO2 103 MMHG (79-93)
[2021-02-16 14:32] LABS: ABG PH 7.25 (7.37-7.43)
[2021-02-16 14:33] LABS: ABG PCO2 19 MMHG (35-45); ABG TCO2 8.7 MMOL/L (21.0-31.0)
[2021-02-16 14:34] LABS: ALLENS TEST POS; INSPIRED O2 1L; PATIENT TEMP 37.1; VENTILATOR NO
--- NOTE | 2021-02-16 15:08 | ED General ---
General Chief Complaint: General Problems/Pain Stated Complaint: LATHARGIC Nursing Triage Note: PT TO ROOM 02 [facility]IA [facility] WITH C/O ALTERED MENTAL STATUS PER FAMILY. PT A/O X2 WHICH IS BASELINE FOR PT. Source of Information: Patient Exam Limitations: No Limitations History of Present Illness Date Seen by Provider: Feb 16, 2021 Time Seen by Provider: 15:05 Initial Comments To ER with altered mental status, not eating or drinking for the past few days. Timing/Duration: 1-2 Days Severity: Moderate Allergies and Home Medications Allergies Coded Allergies: Penicillins (Verified Allergy, Unknown, 09/09/18) Patient Home Medication List Home Medication List Reviewed: Yes Acetaminophen (Tylenol Extra Strength) 500 Mg Tablet, 1,000 MG PO Q6H PRN for PAIN-MILD (1-4), (Reported) Entered as Reported by: ENMA MONTES on 06/18/19 1615 Albuterol Sulfate (Proair Hfa) 1 Puff Puff, 2 PUFF IH QID PRN for SHORTNESS OF BREATH, (Reported) Entered as Reported by: ENMA MONTES on 09/10/18 0947 Aspirin (Aspir 81) 81 Mg Tablet.dr, 81 MG PO DAILY, (Reported) Entered as Reported by: ELIZA STACK on 11/05/18 1109 Atorvastatin Calcium (Atorvastatin Calcium) 40 Mg Tablet, 20 MG PO HS, (Reported) Entered as Reported by: ENMA MONTES on 06/18/19 1614 Budesonide/Formoterol Fumarate (Symbicort 160-4.5 Mcg Inhaler) 10.2 Gm Hfa.aer.ad, 2 PUFF IH BID, (Reported) Entered as Reported by: JUDIT SWAN on 06/15/19 1607 Furosemide (Furosemide) 20 Mg Tablet, 20 MG PO DAILY, (Reported) Entered as Reported by: ELIZA STACK on 11/05/18 1109 Ipratropium/Albuterol Sulfate (Iprat-Albut 0.5-3(2.5) mg/3 ml) 3 Ml Ampul.neb, 3 ML INH RTBID Prescribed by: NILAM MORSE on 06/25/19 192 Pantoprazole Sodium (Protonix) 40 Mg Tablet., 40 MG PO DAILY, (Reported) Entered as Reported by: ELIZA STACK on 11/05/18 1109 Potassium Chloride (Potassium Chloride) 20 Meq Tab.er.prt, 10 MEQ PO BID, (Reported) Entered as Reported by: JUDIT SWAN on 06/15/19 1607 Prednisone (Prednisone) 10 Mg Tab.ds.pk, 10 MG PO DAILY Prescribed by: NILAM MORSE on 06/25/19 1924 Sucralfate (Sucralfate) 1 Gm Tablet, 1 GM PO ACHS, (Reported) Entered as Reported by: ELIZA STACK on 11/05/18 1109 Review of Systems Review of Systems Constitutional: see HPI, other (Patient reports no symptoms) Past Lzueeri-Tzvwps-Lkuyok Hx Patient Social History Tobacco Use?: Yes Tobacco type used: Cigarettes Smoking Status: Current Everyday Smoker Smokeless Tobacco Frequency: Never a User Substance use?: No Alcohol Use?: No Immunizations Up To Date Tetanus Booster (TDap): More than 5yrs PED Vaccines UTD: Yes Seasonal Allergies Seasonal Allergies: No Past Medical History Surgeries: Yes Bowel Surgery Respiratory: No Cardiac: No Neurological: No Reproductive Disorders: No Genitourinary: Yes Prostate Problems Gastrointestinal: No Musculoskeletal: No Endocrine: No HEENT: No Cancer: Yes (stomach or prostate, patient is unsure) Psychosocial: No Integumentary: No Family Medical History No Pertinent Family Hx Physical Exam Vital Signs Vital Signs - First Documented 02/16/21 14:05 Temp 36.3 Pulse 103 Resp 17 B/P (MAP) 107/62 (77) O2 Delivery Room Air Capillary Refill : Less Than 3 Seconds Height, Weight, BMI Height: 5'7.00" Weight: 120lbs. 0.0oz. 54.447797gb; 18.00 BMI Method:Stated General Appearance: No Apparent Distress, WD/WN, Chronically ill, Thin, Other (Cachectic. Despite several attempts by myself, EMS, RN here we were unable to establish peripheral access so we went ahead and started a right internal jugular central line.) Eyes: Bilateral Eye Normal Inspection, Bilateral Eye PERRL, Bilateral Eye EOMI, Bilateral Eye Other (Temporal wasting) Neck: Full Range of Motion, Normal Inspection Respiratory: No Accessory Muscle Use, No Respiratory Distress, Decreased Breath Sounds; No Respiratory Distress, No Wheezing Cardiovascular: Regular Rate, Rhythm, Normal Peripheral Pulses Gastrointestinal: Normal Bowel Sounds, Non Tender, Soft Extremity: No Calf Tenderness, Slow Capillary Refill Neurologic/Psychiatric: Alert, Other (He is oriented to place, he knows he is a t the hospital but is not sure of the year or the month) Skin: Cool, Pallor Focused Exam Lactate Level 02/16/21 15:00: Lactic Acid Level 1.50 Lactic Acid Level Laboratory Tests Test 02/16/21 15:00 Lactic Acid Level 1.50 MMOL/L (0.50-2.00) Procedures/Interventions Lumen: triple Central Line Procedure: betadine prep, sterile drapes applied, sterile dressing applied Position: internal jugular (R) Anesthesia: local Volume Anesthetic (ccs): 3 Complications: none Post Position: sutured, good blood return, position confirmed w/ CXR Progress/Results/Core Measures Suspected Sepsis SIRS Temperature: Pulse: 103 Respiratory Rate: 17 Laboratory Tests 02/16/21 15:00: White Blood Count 11.3H Blood Pressure 107 /62 Mean: 77 02/16/21 15:00: Lactic Acid Level 1.50 Laboratory Tests 02/16/21 15:00: Creatinine 6.75H, INR Comment 1.3, Platelet Count 421H, Total Bilirubin 0.6 02/16/21 19:19: Creatinine 6.12#H Results/Orders Lab Results Laboratory Tests Test 02/16/21 14:02 02/16/21 15:00 02/16/21 15:37 02/16/21 17:13 Range/Units Blood Gas Puncture Site LFT RAD Blood Gas Patient Temperature 37.1 Arterial Blood pH 7.25 *L 7.37-7.43 Arterial Blood Partial Pressure CO2 19 *L 35-45 MMHG Arterial Blood Partial Pressure O2 103 H 79-93 MMHG Arterial Blood HCO3 8 *L 23-27 MMOL/L Arterial Blood Total CO2 8.7 *L 21.0-31.0 MMOL/L Arterial Blood Oxygen Saturation 97 94-100 % Arterial Blood Base Excess -17.9 L -2.5-2.5 MMOL/L Julian Test POS Blood Gas Ventilator Setting NO Blood Gas Inspired Oxygen 1L White Blood Count 11.3 H 4.3-11.0 10^3/uL Red Blood Count 3.08 L 4.30-5.52 10^6/uL Hemoglobin 9.4 L 13.3-17.7 g/dL Hematocrit 29 L 40-54 % Mean Corpuscular Volume 95 80-99 fL Mean Corpuscular Hemoglobin 31 25-34 pg Mean Corpuscular Hemoglobin Concent 32 32-36 g/dL Red Cell Distribution Width 14.0 10.0-14.5 % Platelet Count 421 H 130-400 10^3/uL Mean Platelet Volume 8.9 L 9.0-12.2 fL Immature Granulocyte % (Auto) 1 % Neutrophils (%) (Auto) 78 H 42-75 % Lymphocytes (%) (Auto) 12 12-44 % Monocytes (%) (Auto) 9 0-12 % Eosinophils (%) (Auto) 0 0-10 % Basophils (%) (Auto) 0 0-10 % Neutrophils # (Auto) 8.8 H 1.8-7.8 10^3/uL Lymphocytes # (Auto) 1.3 1.0-4.0 10^3/uL Monocytes # (Auto) 1.0 0.0-1.0 10^3/uL Eosinophils # (Auto) 0.0 0.0-0.3 10^3/uL Basophils # (Auto) 0.1 0.0-0.1 10^3/uL Immature Granulocyte # (Auto) 0.1 0.0-0.1 10^3/uL Prothrombin Time 16.2 H 12.2-14.7 SEC INR Comment 1.3 0.8-1.4 Activated Partial Thromboplast Time 54 H 24-35 SEC Sodium Level 132 L 135-145 MMOL/L Potassium Level 6.6 #*H 3.6-5.0 MMOL/L Chloride Level 105 98-107 MMOL/L Carbon Dioxide Level 11 L 21-32 MMOL/L Anion Gap 16 H 5-14 MMOL/L Blood Urea Nitrogen 90 H 7-18 MG/DL Creatinine 6.75 H 0.60-1.30 MG/DL Estimat Glomerular Filtration Rate 8 BUN/Creatinine Ratio 13 Glucose Level 109 H 70-105 MG/DL Lactic Acid Level 1.50 0.50-2.00 MMOL/L Calcium Level 9.9 8.5-10.1 MG/DL Corrected Calcium 10.2 H 8.5-10.1 MG/DL Total Bilirubin 0.6 0.1-1.0 MG/DL Aspartate Amino Transf (AST/SGOT) 8 5-34 U/L Alanine Aminotransferase (ALT/SGPT) 6 0-55 U/L Alkaline Phosphatase 70 40-136 U/L Total Protein 6.8 6.4-8.2 GM/DL Albumin 3.6 3.2-4.5 GM/DL Urine Color YELLOW Urine Clarity CLEAR Urine pH 5.5 5-9 Urine Specific [place] 1.015 L 1.016-1.022 Urine Protein TRACE H NEGATIVE Urine Glucose (UA) NEGATIVE NEGATIVE Urine Ketones NEGATIVE NEGATIVE Urine Nitrite NEGATIVE NEGATIVE Urine Bilirubin NEGATIVE NEGATIVE Urine Urobilinogen 0.2 < = 1.0 MG/DL Urine Leukocyte Esterase NEGATIVE NEGATIVE Urine RBC (Auto) NEGATIVE NEGATIVE Urine RBC RARE /HPF Urine WBC NONE /HPF Urine Squamous Epithelial Cells RARE /HPF Urine Crystals NONE /LPF Urine Bacteria NEGATIVE /HPF Urine Casts NONE /LPF Urine Mucus NEGATIVE /LPF Urine Culture Indicated CULTURE PENDING SARS-CoV-2 RNA (RT-PCR) Not Detected Not Detecte Test 02/16/21 19:19 Range/Units Blood Gas Puncture Site RGHT RAD Blood Gas Patient Temperature 36.5 Arterial Blood pH 7.42 7.37-7.43 Arterial Blood Partial Pressure CO2 20 L 35-45 MMHG Arterial Blood Partial Pressure O2 104 H 79-93 MMHG Arterial Blood HCO3 13 *L 23-27 MMOL/L Arterial Blood Total CO2 13.5 L 21.0-31.0 MMOL/L Arterial Blood Oxygen Saturation 99 94-100 % Arterial Blood Base Excess -11.0 L -2.5-2.5 MMOL/L Julian Test POS Blood Gas Ventilator Setting NO Blood Gas Inspired Oxygen ROOM AIR Sodium Level 136 135-145 MMOL/L Potassium Level 4.7 3.6-5.0 MMOL/L Chloride Level 104 98-107 MMOL/L Carbon Dioxide Level 15 L 21-32 MMOL/L Anion Gap 17 H 5-14 MMOL/L Blood Urea Nitrogen 83 H 7-18 MG/DL Creatinine 6.12 #H 0.60-1.30 MG/DL Estimat Glomerular Filtration Rate 9 BUN/Creatinine Ratio 14 Glucose Level 88 70-105 MG/DL Calcium Level 9.1 8.5-10.1 MG/DL My Orders Orders - VANDANA ROMERO APRN Cbc With Automated Diff (02/16/21 14:26) Comprehensive Metabolic Panel (02/16/21 14:26) Blood Culture (02/16/21 14:26) Sputum Culture (02/16/21 14:26) Urinalysis (02/16/21 14:26) Urine Culture (02/16/21 14:26) Protime With Inr (02/16/21:) Partial Thromboplastin Time (02/16/21:) Chest 1 View, Ap/Pa Only (02/16/21 14:26) Ed Iv/Invasive Line Start (02/16/21 14:26) Ed Iv/Invasive Line Start (02/16/21 14:26) Vital Signs Adult Sepsis Patie Q15M (02/16/21 14:26) O2 (02/16/21 14:26) Remove Rings In Anticipation O (02/16/21 14:) Lactic Acid Analyzer (02/16/21:) Arterial Blood Gas (02/16/21:) Lactated Ringers (Lr 1000 Ml Iv Solution (02/16/21 15:15) Ekg Tracing (02/16/21 15:43) D50w (Emergency) Syringe (Dextrose 50% 5 (02/16/21 15:45) Insulin (Regular) Human (Novolin R (Per (02/16/21 15:45) Sodium Polystyrene Sulfonate (Kayexalate (02/16/21 15:45) Albuterol Pre-Mix Nebs (Rt) (Proventil (02/16/21 15:45) Svn Small Volume Nebulizer (02/16/21 15:45) Covid 19 Inhouse Test (02/16/21 15:45) Sodium Bicarbonate 8.4% Vial (Sodium Bic (02/16/21 16:15) Pharmacy To Dose (Pharmacy To Dose) (02/16/21 16:15) D5w 1000 Ml Iv Solu... W/Sodium Bicarbon (02/16/21 16:30) Sodium Bicarbonate 8.4% Syr (Sodium Bica (02/16/21 16:27) Basic Metabolic Panel (02/16/21 19:07) Arterial Blood Gas (02/16/21 19:07) Lactated Ringers (Lr 1000 Ml Iv Solution (02/16/21 19:15) Norepinephrine 8 Mg/250 Ml (Norepinephri (02/16/21 21:30) Nicotine Patch (Nicoderm Patch) (02/16/21 21:30) Medications Given in ED Current Medications Medications Dose Ordered Sig/Mauricio Route Start Time Stop Time Status Last Admin Dose Admin Albuterol Sulfate 10 mg ONCE ONCE INH 02/16/21 15:45 02/16/21 15:47 DC 02/16/21 16:01 10 MG Dextrose 50 ml ONCE ONCE IV 02/16/21 15:45 02/16/21 15:47 DC 02/16/21 16:01 50 ML Insulin Human Regular 10 unit ONCE ONCE IV 02/16/21 15:45 02/16/21 15:47 DC 02/16/21 16:02 10 UNIT Sodium Polystyrene Sulfonate 30 gm ONCE ONCE PO 02/16/21 15:45 02/16/21 15:47 DC 02/16/21 16:01 30 GM Sodium Bicarbonate 50 meq STK-MED ONCE .ROUTE 02/16/21 16:27 02/16/21 16:29 DC 02/16/21 16:31 50 MEQ Vital Signs/I&O 02/16/21 02/16/21 14:05 21:37 Temp 36.3 Pulse 103 102 Resp 17 B/P (MAP) 107/62 (77) 100/70 O2 Delivery Room Air Capillary Refill : Less Than 3 Seconds Blood Pressure Mean: 77 Diagnostic Imaging Diagonstic Imaging: Xray Plain Films/CT/US/NM/MRI: chest Comments NAME: SELENA JARAMILLO MED REC#: [id number] PT STATUS: REG ER : 1945 PHYSICIAN: VANDANA ROMERO APRN ADMIT DATE: 02/16/21/ER Draft Date of Exam:02/16/21 CHEST 1 VIEW, AP/PA ONLY Indication: Confusion, altered mental status, central line placement. Comparison: 06/25/2019 Findings: Single view of the chest demonstrates a right IJ catheter within the SVC. There is no pneumothorax. Heart is normal. There are chronic interstitial changes in both bases. No acute infiltrate or pneumothorax is seen. Osseous structures stable. Impression: 1. Well-positioned right IJ catheter without pneumothorax 2. No acute cardiopulmonary findings. Dictated on workstation # [id number] Dict: 02/16/21 1519 Trans: 02/16/21 1521 CVB [id number] Interpreted by: MIRI ZEE Electronically signed by: Departure Communication (Admissions) Family Conversation 2129 blood pressure has been soft consistently with a MAP of about 60-65. Going to go ahead and start Levophed. [facility] updated and change room # to 255 ICU from U 1618-blood pressure is 108/61 heart rate is 104. Giving a 50 mEq sodium bicarb push and then sodium bicarb drip at 125 mils an hour. He also received 25 g of dextrose 10 units of insulin IV, 10 mg of albuterol inhalation and 30 g of Kayexalate p.o. to shift/excrete potassium. Remains alert. He is DO NOT RESUSCITATE status according to his son who is his caregiver. 1740-Dr. Albarran from the hospitalist service at [facility] in [place] has accepted the patient to the transitional care unit. [facility] unable to transport until closer to 8 PM this evening. Impression Primary Impression: Hyperkalemia Additional Impressions: Metabolic acidosis Acute kidney injury Disposition: XFER SHT-TRM HOSP Condition: Stable Transfer Transfer Reason: Exceeds level of care Time Spoke to Accepting Phy: 16:30 Departure-Patient Inst. Referrals: [facility] (PCP/Family) Primary Care Physician VANDANA ROMERO APRN Feb 16, 2021 15:08
[2021-02-16 15:13] LABS: BASOPHILS # (AUTO) 0.1 10^3/uL (0.0-0.1); BASOPHILS % (AUTO) 0 % (0-10); EOSINOPHILS % (AUTO) 0 % (0-10); HEMATOCRIT 29 % (40-54); HEMOGLOBIN 9.4 g/dL (13.3-17.7); LYMPHOCYTES # (AUTO) 1.3 10^3/uL (1.0-4.0); LYMPHOCYTES % (AUTO) 12 % (12-44); MEAN CORPUSCULAR HEMOGLOBIN 31 pg (25-34); MEAN CORPUSCULAR HGB CONC 32 g/dL (32-36); MEAN CORPUSCULAR VOLUME 95 fL (80-99); MEAN PLATELET VOLUME 8.9 fL (9.0-12.2); MONOCYTES % (AUTO) 9 % (0-12); NEUTROPHILS # (AUTO) 8.8 10^3/uL (1.8-7.8); NEUTROPHILS % (AUTO) 78 % (42-75); PLATELET COUNT 421 10^3/uL (130-400); WHITE BLOOD COUNT 11.3 10^3/uL (4.3-11.0)
[2021-02-16] MEDS ORDERED: LACTATED RINGERS 1,000 ML IV SCH ×2 (15:15→19:15)
--- NOTE | 2021-02-16 15:21 | Diagnostic Imaging Report ---
Indication: Confusion, altered mental status, central line placement. Comparison: 06/25/2019 Findings: Single view of the chest demonstrates a right IJ catheter within the SVC. There is no pneumothorax. Heart is normal. There are chronic interstitial changes in both bases. No acute infiltrate or pneumothorax is seen. Osseous structures stable. Impression: 1. Well-positioned right IJ catheter without pneumothorax 2. No acute cardiopulmonary findings. Dictated by: Dictated on workstation # [id number]
[2021-02-16 15:33] LABS: INR 1.3 (0.8-1.4); PROTHROMBIN TIME PATIENT 16.2 SEC (12.2-14.7)
[2021-02-16 15:36] LABS: ALBUMIN 3.6 GM/DL (3.2-4.5)
[2021-02-16 15:38] LABS: CALCIUM 9.9 MG/DL (8.5-10.1)
[2021-02-16 15:39] LABS: POTASSIUM 6.6 MMOL/L (3.6-5.0); TOTAL PROTEIN 6.8 GM/DL (6.4-8.2)
[2021-02-16 15:41] LABS: BILIRUBIN,TOTAL 0.6 MG/DL (0.1-1.0)
[2021-02-16 15:42] LABS: CREATININE SERUM 6.75 MG/DL (0.60-1.30)
[2021-02-16 15:43] LABS: BILIRUBIN,URINE NEGATIVE (NEGATIVE); CLARITY,URINE CLEAR; COLOR,URINE YELLOW; GLUCOSE, URINE (UA) NEGATIVE (NEGATIVE); KETONES,URINE NEGATIVE (NEGATIVE); LEUKOCYTE ESTERASE ,URINE NEGATIVE (NEGATIVE); NITRITE,URINE NEGATIVE (NEGATIVE); PH,URINE 5.5 (5-9); PROTEIN,URINE TRACE (NEGATIVE)
[2021-02-16] MEDS ORDERED: SOD POLYSTERENE 15 GM/60 ML (KAYEXALATE) UNIT DOSE PO ONE (15:45)
[2021-02-16] MEDS ORDERED: DEXTROSE 50% 50 ML (IMS) SYR IV ONE (15:45)
[2021-02-16] MEDS ORDERED: RT-ALBUTEROL SULF 2.5 MG/3 ML PRE-MIX VIAL INH ONE (15:45)
[2021-02-16] MEDS ORDERED: inSUlin (REGULAR) HUMAN 1 UNIT/0.01 ML (CHARGE PER UNIT) IV ONE (15:45)
[2021-02-16 16:08] LABS: BACTERIA,URINE NEGATIVE /HPF; RBC,URINE RARE /HPF; SQUAMOUS EPITHELIAL CELL,UR RARE /HPF
[2021-02-16] MEDS ORDERED: SODIUM BICARB 8.4% 50 MEQ/50 ML VIAL IV ONE (16:15)
[2021-02-16] MEDS ORDERED: PHARMACY TO DOSE IM SCH (16:15)
[2021-02-16] MEDS ORDERED: SODIUM BICARB 8.4% 50 MEQ/50 ML (ABBOTT) SYR ONE (16:27)
[2021-02-16] MEDS ORDERED: SODIUM BICARBONATE 8.4% VIAL 150 MEQ in D5W 1000 ML IV SOLUTION 1,000 ML IV SCH (16:30)
[2021-02-16 19:30] LABS: ABG OXYGEN SATURATION 99 % (94-100); ABG PCO2 20 MMHG (35-45); ABG PH 7.42 (7.37-7.43); ABG PO2 104 MMHG (79-93); ABG TCO2 13.5 MMOL/L (21.0-31.0)
[2021-02-16 19:32] LABS: ALLENS TEST POS; INSPIRED O2 ROOM AIR; PATIENT TEMP 36.5; VENTILATOR NO
[2021-02-16 19:51] LABS: CALCIUM 9.1 MG/DL (8.5-10.1); CREATININE SERUM 6.12 MG/DL (0.60-1.30); POTASSIUM 4.7 MMOL/L (3.6-5.0)
[2021-02-16] MEDS ORDERED: NICOTINE 21 MG (NICODERM) PATCH TD ONE (21:30)
[2021-02-16] MEDS ORDERED: NOREPINEPHRINE 8 MG/250 ML 250 ML IV SCH (21:30)
[2021-02-16 21:55] VITALS: BP 100/70
== END 2021-02-16 21:55 | disposition short-term general hospital (02) ==
LOC: EDUNIT# 14:03 → ER 14:03
DX: E87.5 Hyperkalemia (principal); E87.2 Acidosis; N17.9 Acute kidney failure, unspecified; F17.210 Nicotine dependence, cigarettes, uncomplicated; Z20.822 Contact with and (suspected) exposure to COVID-19; Z79.52 Long term (current) use of systemic steroids; Z79.82 Long term (current) use of aspirin
CPT/HCPCS: 36415; 36556; 71045; 80048; 80053; 81000; 82805; 83605; 85025; 85610; 85730; 87040; 87088; 87636; 93005; 99291

== ENCOUNTER 2021-03-30 17:05 | Inpatient (IN) | payer MEDICARE ==
[~2021-03-30] VITALS: Ht 160 cm; Wt 53.2 kg
[~2021-03-30 17:05] MED LIST changes: +POTA-160 PO; +POTA-179 PO; -POTA10TA6 PO; -POTA20TA15 PO
--- NOTE | 2021-03-30 17:14 | ED Lower Extremity ---
General Chief Complaint: Trauma-Non Activation Stated Complaint: FALL Nursing Triage Note: ARRIVED VIA EMS FROM [facility] AFTER A UNWITTNESSED FALL. PT PRESENTS TO THE ER WITH A EXTERNALLY ROTATED RIGHT LEG. PT IS VERY RUBY. Source: patient Exam Limitations: no limitations History of Present Illness Date Seen by Provider: Mar 30, 2021 Time Seen by Provider: 17:03 Initial Comments This is a 75-year-old male who presented to the ER via [facility] after being found on ground at [facility]. EMS reports that patient was found lying on ground on right side. senior living called and reported that patient had hit his head, right elbow, right hip. His only complaint was his right hip which was noted to be shortened and externally rotated. Called EMS due to concerns for hip fracture. Patient has underlying history of confusion. Son presented to ED and states patient was to be release home in his care soon until his recent fall. Allergies and Home Medications Allergies Coded Allergies: Penicillins (Verified Allergy, Unknown, 09/09/18) Patient Home Medication List Home Medication List Reviewed: Yes Albuterol Sulfate (Proair Hfa) 1 Puff Puff, 2 PUFF IH Q6H PRN for SHORTNESS OF BREATH, (Reported) Entered as Reported by: ENMA MONTES on 09/10/18 0947 Last Action: Reviewed Aspirin (Aspirin EC) 81 Mg Tablet.dr, 81 MG PO DAILY, (Reported) Entered as Reported by: GREGG SCHAFER on 03/31/211052 Last Action: Reviewed Budesonide/Formoterol Fumarate (Symbicort 160-4.5 Mcg Inhaler) 10.2 Gm Hfa.aer .ad, 2 PUFF IH BID, (Reported) Entered as Reported by: GREGG SCHAFER on 03/31/211052 Last Action: Reviewed Hydrocodone/Acetaminophen (Hydrocodone-Acetamin 5-325 mg) 1 Each Tablet, 1 TAB PO TID, (Reported) Entered as Reported by: GREGG SCHAFER on 03/31/211052 Last Action: Reviewed Lidocaine (Lidocaine 5% Patch) 1 Each Adh..patch, 1 EACH TP DAILY PRN for PAIN- BREAKTHROUGH, (Reported) Entered as Reported by: GREGG SCHAFER on 03/31/211052 Last Action: Reviewed Mirtazapine (Mirtazapine) 7.5 Mg Tablet, 7.5 MG PO HS, (Reported) Entered as Reported by: GREGG SCHAFRE on 03/31/211052 Last Action: Reviewed Pantoprazole Sodium (Protonix) 40 Mg Tablet.dr, 40 MG PO DAILY, (Reported) Entered as Reported by: ELIZA STACK on 11/05/181108 Last Action: Reviewed Sertraline HCl (Sertraline HCl) 25 Mg Tablet, 25 MG PO DAILY, (Reported) Entered as Reported by: GREGG SCHAFER on 03/31/211052 Last Action: Reviewed Sucralfate (Sucralfate) 1 Gm Tablet, 1 GM PO ACHS, (Reported) Entered as Reported by: ELIZA STACK on 11/05/181108 Last Action: Reviewed Tiotropium Chancellor (Spiriva) 1 Inh Aerp, 1 INH IH DAILY, (Reported) Entered as Reported by: GREGG SCHAFER on 03/31/211052 Last Action: Reviewed Discontinued Medications Acetaminophen (Tylenol Extra Strength) 500 Mg Tablet, 1,000 MG PO Q6H PRN for PAIN-MILD (1-4), (Reported) Discontinued Reason: No Longer Taking Entered as Reported by: ENMA MONTES on 06/18/19 1615 Last Action: Discontinued Atorvastatin Calcium (Atorvastatin Calcium) 40 Mg Tablet, 20 MG PO HS, (Reported) Discontinued Reason: No Longer Taking Entered as Reported by: ENMA MONTES on 06/18/19 1614 Last Action: Discontinued Budesonide/Formoterol Fumarate (Symbicort 160-4.5 Mcg Inhaler) 10.2 Gm Hfa.aer.ad, 2 PUFF IH BID, (Reported) Discontinued Reason: No Longer Taking Entered as Reported by: JUDIT SWAN on 06/15/19 1607 Last Action: Discontinued Furosemide (Furosemide) 20 Mg Tablet, 20 MG PO DAILY, (Reported) Discontinued Reason: No Longer Taking Entered as Reported by: ELIZA STACK on 11/05/181108 Last Action: Discontinued Ipratropium/Albuterol Sulfate (Iprat-Albut 0.5-3(2.5) mg/3 ml) 3 Ml Ampul.neb, 3 ML INH RTBID Discontinued Reason: No Longer Taking Prescribed by: NILAM MORSE on 06/25/191923 Last Action: Discontinued Potassium Chloride (Potassium Chloride) 20 Meq Tab.er.prt, 10 MEQ PO BID, (Reported) Discontinued Reason: No Longer Taking Entered as Reported by: JUDIT SWAN on 06/15/19 1607 Last Action: Discontinued Prednisone (Prednisone) 10 Mg Tab.ds.pk, 10 MG PO DAILY Discontinued Reason: No Longer Taking Prescribed by: NILAM MORSE on 06/25/191923 Last Action: Discontinued Review of Systems Constitutional: no symptoms reported EENTM: no symptoms reported Respiratory: no symptoms reported Cardiovascular: no symptoms reported Gastrointestinal: no symptoms reported Genitourinary: no symptoms reported Musculoskeletal: see HPI Skin: no symptoms reported Psychiatric/Neurological: No Symptoms Reported Past Zfwwokh-Kgefxb-Mzttpd Hx Patient Social History Smoking Status: Current Everyday Smoker Substance use?: No Alcohol Use?: No Immunizations Up To Date Tetanus Booster (TDap): More than 5yrs PED Vaccines UTD: Yes Seasonal Allergies Seasonal Allergies: No Past Medical History Surgeries: Yes Bowel Surgery Respiratory: No Cardiac: No Neurological: No Reproductive Disorders: No Genitourinary: Yes Prostate Problems Gastrointestinal: No Musculoskeletal: No Endocrine: No HEENT: No Cancer: Yes (stomach or prostate, patient is unsure) Psychosocial: No Integumentary: No Family Medical History No Pertinent Family Hx Physical Exam Vital Signs Vital Signs - First Documented 03/30/21 17:05 Temp 36.3 Pulse 76 Resp 16 B/P (MAP) 150/71 (97) Pulse Ox 96 O2 Delivery Room Air Capillary Refill : Less Than 3 Seconds Height, Weight, BMI Height: 5'7.00" Weight: 120lbs. 0.0oz. 54.153259hs; 26.00 BMI Method:Stated General Appearance: WD/WN, no apparent distress HEENT: PERRL/EOMI, normal ENT inspection Neck: full range of motion, normal inspection Cardiovascular: regular rate, rhythm, no edema Respiratory: lungs clear, normal breath sounds, no respiratory distress, no accessory muscle use Gastrointestinal: normal bowel sounds, non tender, soft Hips: left hip non-tender, left hip normal inspection, left hip normal range of motion, left hip no evidence of injury; right hip other (short, externally rotated ) Legs: left leg non-tender, left leg normal inspection, left leg normal range of motion; right leg limited range of motion, right leg soft tissue tenderness Knees: bilateral knee non-tender, bilateral knee normal inspection, bilateral knee normal range of motion Ankles: bilateral ankle non-tender, bilateral ankle normal inspection, bilateral ankle normal range of motion Feet: bilateral foot non-tender, bilateral foot normal inspection, bilateral foot normal range of motion Neurologic/Tendon: normal sensation, normal tendon functions Neurologic/Psychiatric: alert, normal mood/affect; No oriented x 3 (person and place ) Skin: normal color, warm/dry Progress/Results/Core Measures Results/Orders Lab Results Laboratory Tests Test 03/30/21 17:09 Range/Units White Blood Count 8.7 4.3-11.0 10^3/uL Red Blood Count 3.88 L 4.30-5.52 10^6/uL Hemoglobin 11.1 L 13.3-17.7 g/dL Hematocrit 36 L 40-54 % Mean Corpuscular Volume 92 80-99 fL Mean Corpuscular Hemoglobin 29 25-34 pg Mean Corpuscular Hemoglobin Concent 31 L 32-36 g/dL Red Cell Distribution Width 14.1 10.0-14.5 % Platelet Count 276 130-400 10^3/uL Mean Platelet Volume 9.3 9.0-12.2 fL Immature Granulocyte % (Auto) 0 % Neutrophils (%) (Auto) 46 42-75 % Lymphocytes (%) (Auto) 40 12-44 % Monocytes (%) (Auto) 8 0-12 % Eosinophils (%) (Auto) 4 0-10 % Basophils (%) (Auto) 1 0-10 % Neutrophils # (Auto) 4.0 1.8-7.8 10^3/uL Lymphocytes # (Auto) 3.4 1.0-4.0 10^3/uL Monocytes # (Auto) 0.7 0.0-1.0 10^3/uL Eosinophils # (Auto) 0.4 H 0.0-0.3 10^3/uL Basophils # (Auto) 0.1 0.0-0.1 10^3/uL Immature Granulocyte # (Auto) 0.0 0.0-0.1 10^3/uL Sodium Level 140 135-145 MMOL/L Potassium Level 4.4 3.6-5.0 MMOL/L Chloride Level 105 98-107 MMOL/L Carbon Dioxide Level 21 21-32 MMOL/L Anion Gap 14 5-14 MMOL/L Blood Urea Nitrogen 15 7-18 MG/DL Creatinine 1.06 0.60-1.30 MG/DL Estimat Glomerular Filtration Rate 68 BUN/Creatinine Ratio 14 Glucose Level 106 H 70-105 MG/DL Calcium Level 9.2 8.5-10.1 MG/DL Corrected Calcium 9.4 8.5-10.1 MG/DL Total Bilirubin 0.4 0.1-1.0 MG/DL Aspartate Amino Transf (AST/SGOT) 18 5-34 U/L Alanine Aminotransferase (ALT/SGPT) 10 0-55 U/L Alkaline Phosphatase 71 40-136 U/L Total Protein 6.8 6.4-8.2 GM/DL Albumin 3.7 3.2-4.5 GM/DL My Orders Orders - SMOOTH VELARDE BUFFER INFLATED PAD Hip, Right, 2 Views (03/30/21 17:09) Cbc With Automated Diff (03/30/21 17:09) Comprehensive Metabolic Panel (03/30/21 17:09) Ct Head/Cervical Spine Wo (03/30/21 17:09) Warren Cath (03/30/21 18:05) Ed Admission (Communication) (03/30/21 18:53) Nothing By Mouth (03/31/21 Breakfast) Vital Signs/I&O 03/30/21 17:05 Temp 36.3 Pulse 76 Resp 16 B/P (MAP) 150/71 (97) Pulse Ox 96 O2 Delivery Room Air Blood Pressure Mean: 97 Progress Progress Note : Progress Note Patient examined and in no acute distress. Neurovascular intact distal to injury. Denies need for pain medication at this time. Ice applied to right hip. Images shows intertrochanteric fracture. Discussed case with Dr. Contreras. Will admit to hospitalist and manage acute fracture. Plan for procedure tomorrow. Discussed POC with patient and POA. They are agreeable with plan. Diagnostic Imaging Diagonstic Imaging: Xray Comments [facility] [place], [place] NAME: SELENA JARAMILLO [facility] REC#: [id number] PT STATUS: REG ER : 1945 PHYSICIAN: SMOOTH VELARDE BUFFER INFLATED PAD ADMIT DATE: 03/30/21/ER Signed Date of Exam:03/30/21 HIP, RIGHT, 2 VIEWS EXAM: Right hip radiograph. EXAM DATE: 03/30/2021. COMPARISON: CT 09/18/2018. HISTORY: Right hip pain after fall. TECHNIQUE: Two views of the right hip. FINDINGS: There appears to be an acute mildly displaced fracture through the intertrochanteric right femur. Mild joint space narrowing at the right hip. Multiple surgical clips are seen within the pelvis. Soft tissues are normal. IMPRESSION: Likely acute fracture of the intertrochanteric right femur. Dictated by: Dictated on workstation # [id number] Dict: 03/30/211816 Trans: 03/30/211834 [facility] [id number] Interpreted by: MICHELLE POLLACK DO Electronically signed by: MICHELLE POLLACK DO 03/30/211834 Reviewed: Reviewed by Wa Diagonstic Imaging: CT Plain Films/CT/US/NM/MRI: head Comments [facility] [place] [place] NAME: SELENA JARAMILLO [facility] REC#: [id number] PT STATUS: ADM IN : 1945 PHYSICIAN: SMOOTH VELARDE APRN ADMIT DATE: 03/30/21 Signed Date of Exam:03/30/21 CT HEAD/CERVICAL SPINE WO PROCEDURE: CT head and CT cervical spine without contrast. TECHNIQUE: Multiple contiguous axial images were obtained through the brain and cervical spine without the use of intravenous contrast. Sagittal and coronal reformations through the cervical spine were then performed. Auto Exposure Controls were utilized during the CT exam to meet ALARA standards for radiation dose reduction. INDICATION: Fall. Altered mental status. Pain. COMPARISON: None. FINDINGS: CT HEAD: Old small left frontal lobe infarct is noted. The ventricles and cortical sulci are diffusely prominent, compatible with age-related volume loss. There are confluent areas of abnormal, low attenuation in the periventricular white matter. This is consistent with small vessel ischemic changes; age-indeterminate. There is no prior study available for comparison. There is no midline shift or mass-effect. No acute intra-axial hemorrhage is seen. There are no abnormal areas of increased or decreased density to suggest acute hemorrhage or edema. No extra-axial masses or collections are present. The bony calvarium is intact. The visualized paranasal sinuses are unremarkable. The mastoid air cells are partially opacified on the right. CT CERVICAL SPINE: Evaluation with static alignment shows exaggerated lordosis of the cervical spine. This may be related patient positioning, as well as underlying spasm. Additionally, there is mild multilevel grade 1 retrolisthesis at the C3-C4, C4-C5 and C6-C7 levels. There is no evidence of jumped facets. Vertebral body heights are maintained. There is no acute fracture. No bony fragments are seen within the spinal canal. There are moderate multilevel degenerative changes, consistent with intervertebral disc height loss as well as multilevel anterior and posterior endplate osteophyte formations. There is also multilevel facet arthropathy. These changes appear greatest at the C6-C7 level. Prevertebral and paravertebral soft tissue structures are unremarkable. Note is made of calcified carotid atherosclerosis. Included portions of the lung apices are clear. IMPRESSION: 1. No acute intracranial abnormality. No CT evidence of mass, acute infarct or intracranial hemorrhage. 2. Small vessel ischemic changes in the periventricular and subcortical white matter; likely chronic. 3. 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 4. No acute fracture or dislocation of the cervical spine. 5. Moderate multilevel degenerative changes. Dictated by: Dictated on workstation # [id number] Dict: 03/30/21 174 Trans: 03/31/21900 [facility] [phone] Interpreted by: JANICE CALZADA MD Electronically signed by: JANICE CALZADA MD 03/31/21900 Reviewed: Reviewed by Wa Departure Communication (Admissions) Time/Spoke to Admitting Phy: 18:27 Dr. Morse Time/Spoke to Consulting Phy: 18:29 Dr. Contreras Impression Primary Impression: Intertrochanteric fracture of right femur Additional Impression: Fall on same level Disposition: ADMITTED INPATIENT Condition: Stable Admissions Decision to Admit Reason: Admit from ER (General) Decision to Admit/Date: Mar 30, 2021 Time/Decision to Admit Time: 18:00 Departure-Patient Inst. Referrals: [facility] (PCP/Family) Primary Care Physician SMOOTH VELARDE BUFFER INFLATED PAD Mar 30, 2021 17:14
[2021-03-30 17:23] LABS: BASOPHILS # (AUTO) 0.1 10^3/uL (0.0-0.1); BASOPHILS % (AUTO) 1 % (0-10); EOSINOPHILS # (AUTO) 0.4 10^3/uL (0.0-0.3); EOSINOPHILS % (AUTO) 4 % (0-10); HEMATOCRIT 36 % (40-54); HEMOGLOBIN 11.1 g/dL (13.3-17.7); LYMPHOCYTES # (AUTO) 3.4 10^3/uL (1.0-4.0); LYMPHOCYTES % (AUTO) 40 % (12-44); MEAN CORPUSCULAR HEMOGLOBIN 29 pg (25-34); MEAN CORPUSCULAR HGB CONC 31 g/dL (32-36); MEAN CORPUSCULAR VOLUME 92 fL (80-99); MEAN PLATELET VOLUME 9.3 fL (9.0-12.2); MONOCYTES # (AUTO) 0.7 10^3/uL (0.0-1.0); MONOCYTES % (AUTO) 8 % (0-12); NEUTROPHILS % (AUTO) 46 % (42-75); PLATELET COUNT 276 10^3/uL (130-400); WHITE BLOOD COUNT 8.7 10^3/uL (4.3-11.0)
[2021-03-30 17:37] LABS: ALBUMIN 3.7 GM/DL (3.2-4.5)
[2021-03-30 17:38] LABS: POTASSIUM 4.4 MMOL/L (3.6-5.0)
[2021-03-30 17:39] LABS: CALCIUM 9.2 MG/DL (8.5-10.1)
[2021-03-30 17:40] LABS: TOTAL PROTEIN 6.8 GM/DL (6.4-8.2)
[2021-03-30 17:42] LABS: BILIRUBIN,TOTAL 0.4 MG/DL (0.1-1.0)
[2021-03-30 17:44] LABS: CREATININE SERUM 1.06 MG/DL (0.60-1.30)
--- NOTE | 2021-03-30 17:56 | Diagnostic Imaging Report ---
PROCEDURE: CT head and CT cervical spine without contrast. TECHNIQUE: Multiple contiguous axial images were obtained through the brain and cervical spine without the use of intravenous contrast. Sagittal and coronal reformations through the cervical spine were then performed. Auto Exposure Controls were utilized during the CT exam to meet ALARA standards for radiation dose reduction. INDICATION: Fall. Altered mental status. Pain. COMPARISON: None. FINDINGS: CT HEAD: Old small left frontal lobe infarct is noted. The ventricles and cortical sulci are diffusely prominent, compatible with age-related volume loss. There are confluent areas of abnormal, low attenuation in the periventricular white matter. This is consistent with small vessel ischemic changes; age-indeterminate. There is no prior study available for comparison. There is no midline shift or mass-effect. No acute intra-axial hemorrhage is seen. There are no abnormal areas of increased or decreased density to suggest acute hemorrhage or edema. No extra-axial masses or collections are present. The bony calvarium is intact. The visualized paranasal sinuses are unremarkable. The mastoid air cells are partially opacified on the right. CT CERVICAL SPINE: Evaluation with static alignment shows exaggerated lordosis of the cervical spine. This may be related patient positioning, as well as underlying spasm. Additionally, there is mild multilevel grade 1 retrolisthesis at the C3-C4, C4-C5 and C6-C7 levels. There is no evidence of jumped facets. Vertebral body heights are maintained. There is no acute fracture. No bony fragments are seen within the spinal canal. There are moderate multilevel degenerative changes, consistent with intervertebral disc height loss as well as multilevel anterior and posterior endplate osteophyte formations. There is also multilevel facet arthropathy. These changes appear greatest at the C6-C7 level. Prevertebral and paravertebral soft tissue structures are unremarkable. Note is made of calcified carotid atherosclerosis. Included portions of the lung apices are clear. IMPRESSION: 1. No acute intracranial abnormality. No CT evidence of mass, acute infarct or intracranial hemorrhage. 2. Small vessel ischemic changes in the periventricular and subcortical white matter; likely chronic. 3. 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 4. No acute fracture or dislocation of the cervical spine. 5. Moderate multilevel degenerative changes. Dictated by: Dictated on workstation # [id number]
--- NOTE | 2021-03-30 18:24 | Diagnostic Imaging Report ---
EXAM: Right hip radiograph. EXAM DATE: 03/30/2021. COMPARISON: CT 09/18/2018. HISTORY: Right hip pain after fall. TECHNIQUE: Two views of the right hip. FINDINGS: There appears to be an acute mildly displaced fracture through the intertrochanteric right femur. Mild joint space narrowing at the right hip. Multiple surgical clips are seen within the pelvis. Soft tissues are normal. IMPRESSION: Likely acute fracture of the intertrochanteric right femur. Dictated by: Dictated on workstation # [id number]
[2021-03-30 20:17] VITALS: BP 159/72
[2021-03-30] MEDS ORDERED: ONDANSETRON 4 MG/2 ML (SDV) Z0FRAN IVP PRN (21:15)
[2021-03-30] MEDS ORDERED: LOPERAMIDE 2 MG (IMODIUM) TABLET PO PRN (21:15)
[2021-03-30] MEDS ORDERED: MELATONIN 3 MG TABLET PO PRN (21:15)
[2021-03-30] MEDS ORDERED: diphenhydrAMINE 25 MG TAB (BENADRYL) PO PRN (21:15)
[2021-03-30] MEDS ORDERED: cloNIDine 0.1 MG (CATAPRES) TAB PO PRN (21:15)
[2021-03-30] MEDS ORDERED: HALOPERIDOL 5 MG/ML (HALDOL) VIAL IM PRN (21:15)
[2021-03-30] MEDS ORDERED: ACETAMINOPHEN 500 MG TAB (TYLENOL) PO PRN (21:15)
[2021-03-30] MEDS ORDERED: ALPRAZolam 0.25 MG (XANAX) TAB PO PRN (21:15)
[2021-03-30] MEDS ORDERED: HALOPERIDOL 2 MG (HALDOL) TABLET PO PRN (21:15)
[2021-03-30] MEDS ORDERED: LORazepam INJ 2 MG/ML (ATIVAN) VIAL IVP PRN (21:15)
[2021-03-30] MEDS ORDERED: DOCUSATE SODIUM 100 MG (COLACE) CAP PO PRN (21:15)
[2021-03-30] MEDS ORDERED: CALCIUM CARBONATE 500 MG (TUMS) TAB.CHEW PO PRN (21:15)
[2021-03-30 22:07] VITALS: BP 150/71
[2021-03-30] MEDS: NS IV 1000 ML 1,000 ML IV SCH (23:03)
[2021-03-31] VITALS (19 sets, daily range): BP systolic 92–157; BP diastolic 52–88
[2021-03-31] MEDS: morphine INJ 10 MG/ML 1ML (SYR OR VIAL) IVP PRN ×2 (05:53→09:05)
[2021-03-31 06:12] LABS: BASOPHILS % (AUTO) 1 % (0-10); EOSINOPHILS % (AUTO) 0 % (0-10); HEMATOCRIT 31 % (40-54); HEMOGLOBIN 10.1 g/dL (13.3-17.7); LYMPHOCYTES # (AUTO) 1.3 10^3/uL (1.0-4.0); LYMPHOCYTES % (AUTO) 16 % (12-44); MEAN CORPUSCULAR HEMOGLOBIN 30 pg (25-34); MEAN CORPUSCULAR HGB CONC 33 g/dL (32-36); MEAN CORPUSCULAR VOLUME 91 fL (80-99); MEAN PLATELET VOLUME 12.5 fL (9.0-12.2); MONOCYTES # (AUTO) 0.6 10^3/uL (0.0-1.0); MONOCYTES % (AUTO) 7 % (0-12); NEUTROPHILS # (AUTO) 5.9 10^3/uL (1.8-7.8); NEUTROPHILS % (AUTO) 76 % (42-75); PLATELET COUNT 130 10^3/uL (130-400); WHITE BLOOD COUNT 7.8 10^3/uL (4.3-11.0)
[2021-03-31] MEDS: RT-ALBUTEROL/IPRATROPIUM 3 ML (DUONEB) VIAL INH SCH ×2 (07:02→20:56)
[2021-03-31] MEDS: polyethylene glycoL POWDER 17 GM (MIRALAX) PACK PO SCH ×2 (07:53→19:24)
[2021-03-31] MEDS: SENNA W/DOCUSATE (SENOKOT S) TABLET PO SCH ×2 (07:53→19:24)
[2021-03-31 07:55] LABS: BILIRUBIN,TOTAL 0.5 MG/DL (0.1-1.0); CALCIUM 8.7 MG/DL (8.5-10.1); CREATININE SERUM 0.96 MG/DL (0.60-1.30); POTASSIUM 4.1 MMOL/L (3.6-5.0)
--- NOTE | 2021-03-31 08:04 | Consultation - Ortho ---
Consult - Ortho Subjective Date of Exam 03/31/21 Chief Complaint Right Hip Pain HPI/Events since last exam Had fall from standing height. Immediate pain and inability to bear weight. Seen in ER and diagnosed with right intertrochanteric femur fracture. I was asked to manage the fracture. Medical, Surgical History see admit H&P Social History see admit H&P Family History see admit H&P Review of Systems see admit H&P Allergies: Coded Allergies: Penicillins (Verified Allergy, Unknown, 09/09/18) Home Meds Active Scripts Prednisone (Prednisone) 10 Mg Tab.ds.pk, 10 MG PO DAILY, #21 EA Take 6 tabs(60mg)daily,decrease by 1 tab(10MG)daily. Prov:NILAM MORSE DO 06/25/19 Ipratropium/Albuterol Sulfate (Iprat-Albut 0.5-3(2.5) mg/3 ml) 3 Ml Ampul.neb, 3 ML INH RTBID, #90 INHALER Prov:NILAM MORSE DO 06/25/19 Reported Medications Acetaminophen (Tylenol Extra Strength) 500 Mg Tablet, 1000 MG PO Q6H PRN for PAIN-MILD (1-4), TAB 06/18/19 Atorvastatin Calcium (Atorvastatin Calcium) 40 Mg Tablet, 20 MG PO HS, TAB TAKES 1/2 (40MG) TABLET 06/18/19 Budesonide/Formoterol Fumarate (Symbicort 160-4.5 Mcg Inhaler) 10.2 Gm Hfa.aer.ad, 2 PUFF IH BID, INHALER 06/15/19 Potassium Chloride (Potassium Chloride) 20 Meq Tab.er.prt, 10 MEQ PO BID, TAB TAKES 1/2 (20MEQ) TABLET 06/15/19 Aspirin (Aspir 81) 81 Mg Tablet.dr, 81 MG PO DAILY, TAB 11/05/18 Furosemide (Furosemide) 20 Mg Tablet, 20 MG PO DAILY, TAB 11/05/18 Pantoprazole Sodium (Protonix) 40 Mg Tablet.dr, 40 MG PO DAILY, TAB 11/05/18 Sucralfate (Sucralfate) 1 Gm Tablet, 1 GM PO ACHS, TAB 11/05/18 Albuterol Sulfate (PROAIR HFA) 1 Puff Puff, 2 PUFF IH QID PRN for SHORTNESS OF BREATH, INHALER 09/10/18 Objective Exam Right Hip: Skin intact, leg held in external rotation, dorsiflexes ankle, pulses palpable Vital Signs Vital Signs Date Time Temp Pulse Resp B/P (MAP) Pulse Ox O2 Delivery O2 Flow Rate FiO2 03/31/21 07:04 95 Room Air 03/31/21 04:25 36.4 83 18 157/72 (100) 97 Room Air 03/31/21 00:41 37.6 86 18 127/61 (83) 97 Room Air 03/30/21 22:07 36.3 76 96 03/30/21 21:00 96 Nasal Cannula 03/30/21 20:17 36.5 73 20 159/72 (101) 97 Room Air 03/30/21 19:57 36.6 72 16 151/74 98 Room Air 03/30/21 17:05 36.3 76 16 150/71 (97) 96 Room Air I & O 03/31/21 07:00 Intake Total 0 ml Output Total 1200 ml Balance -1200 ml Lab Results Laboratory Tests 03/30/21 17:09: White Blood Count 8.7, Red Blood Count 3.88L, Hemoglobin 11.1L, Hematocrit 36L, Mean Corpuscular Volume 92, Mean Corpuscular Hemoglobin 29, Mean Corpuscular Hemoglobin Concent 31L, Red Cell Distribution Width 14.1, Platelet Count 276, Mean Platelet Volume 9.3, Immature Granulocyte % (Auto) 0, Neutrophils (%) ( Auto) 46, Lymphocytes (%) (Auto) 40, Monocytes (%) (Auto) 8, Eosinophils (%) (Auto) 4, Basophils (%) (Auto) 1, Neutrophils # (Auto) 4.0, Lymphocytes # (Auto) 3.4, Monocytes # (Auto) 0.7, Eosinophils # (Auto) 0.4H, Basophils # (Auto) 0.1, Immature Granulocyte # (Auto) 0.0, Sodium Level 140, Potassium Level 4.4, Chloride Level 105, Carbon Dioxide Level 21, Anion Gap 14, Blood Urea Nitrogen 15, Creatinine 1.06, Estimat Glomerular Filtration Rate 68, BUN/Creatinine Ratio 14, Glucose Level 106H, Calcium Level 9.2, Corrected Calcium 9.4, Total Bilirubin 0.4, Aspartate Amino Transf (AST/SGOT) 18, Alanine Aminotransferase (ALT/SGPT) 10, Alkaline Phosphatase 71, Total Protein 6.8, Albumin 3.7 03/31/21 05:59: White Blood Count 7.8, Red Blood Count 3.37L, Hemoglobin 10.1L, Hematocrit 31L, Mean Corpuscular Volume 91, Mean Corpuscular Hemoglobin 30, Mean Corpuscular Hemoglobin Concent 33, Red Cell Distribution Width 14.1, Platelet Count 130, Mean Platelet Volume 12.5H, Immature Granulocyte % (Auto) 0, Neutrophils (%) (Auto) 76H, Lymphocytes (%) (Auto) 16, Monocytes (%) (Auto) 7, Eosinophils (%) (Auto) 0, Basophils (%) (Auto) 1, Neutrophils # (Auto) 5.9, Lymphocytes # (Auto) 1.3, Monocytes # (Auto) 0.6, Eosinophils # (Auto) 0.0, Basophils # (Auto) 0.0, Immature Granulocyte # (Auto) 0.0 03/31/21 07:20: Sodium Level 138, Potassium Level 4.1, Chloride Level 108H, Carbon Dioxide Level 19L, Anion Gap 11, Blood Urea Nitrogen 13, Creatinine 0.96, Estimat Glomerular Filtration Rate 76, BUN/Creatinine Ratio 14, Glucose Level 123H, Calcium Level 8.7, Corrected Calcium 9.5, Total Bilirubin 0.5, Aspartate Amino Transf (AST/SGOT) 16, Alanine Aminotransferase (ALT/SGPT) 9, Alkaline Phosphatase 59, Total Protein 6.0L, Albumin 3.0L Imaging 2 views of the right hip dated 03/30/21 were reviewed from PACS and demonstrated a displaced intertrochanteric femur fracture Assessment and Plan Assessment Right Intertrochanteric Femur Fracture Problem List Right Intertrochanteric Femur Fracture Plan I have recommended proceeding with reduction and fixation of the right intertrochanteric femur fracture. Nature of the procedure and the postoperative course as well as risks and benefits were discussed with patient's POA. Questions were answered. Consent to be obtained. Will tentatively schedule for later today. Final Diagonsis Right Intertrochanteric Femur Fracture Level of the visit: Level 3 ADE RYAN MD Mar 31, 2021 08:04
[2021-03-31] MEDS ORDERED: CLINDAMYCIN 600 MG/50 ML IVPB 50 ML IV ONE ×2 (08:15→12:14)
[2021-03-31] MEDS: NS IV 1000 ML 1,000 ML IV SCH ×2 (08:49→10:26)
[2021-03-31] MEDS ORDERED: TIOT18CA2 IH (10:53)
[2021-03-31] MEDS ORDERED: ASPI-1238 PO (10:53)
[2021-03-31] MEDS ORDERED: SERT-412 PO (10:53)
[2021-03-31] MEDS ORDERED: ACHD5005 PO (10:53)
[2021-03-31] MEDS ORDERED: BUDE10.2 IH (10:53)
[2021-03-31] MEDS ORDERED: MIRT7.5T8 PO (10:53)
[2021-03-31] MEDS ORDERED: LIDO700A45 TP (10:53)
[2021-03-31] MEDS ORDERED: SEVOFLURANE (ULTANE) 15 ML INHAL SOLN ONE (11:35)
[2021-03-31] MEDS ORDERED: proPOfol 200 MG/20 ML (DIPRIVAN) VIAL IV ONE (11:35)
[2021-03-31] MEDS ORDERED: ROCURONIUM 10 MG/ML 5 ML SYRINGE IV ONE (11:35)
[2021-03-31] MEDS ORDERED: ONDANSETRON 4 MG/2 ML (SDV) Z0FRAN ONE (11:35)
[2021-03-31] MEDS ORDERED: LIDOCAINE PF 2% 5 ML (XYLOCAINE) VIAL ONE (11:35)
[2021-03-31] MEDS ORDERED: fentaNYL INJ 100 MCG/2 ML AMP ONE (11:36)
[2021-03-31] MEDS ORDERED: MIDAZOLAM 2 MG/2 ML (VERSED) VIAL ONE (11:36)
[2021-03-31] MEDS: LACTATED RINGERS 1,000 ML IV PRN ×2 (12:10→13:37)
[2021-03-31] MEDS ORDERED: BUPIVACAINE 0.5% 30 ML (SENSORCAINE) VIAL ONE (12:22)
[2021-03-31] MEDS ORDERED: KETAMINE SYRINGE 50 MG/5 ML SYRINGE ONE (12:30)
[2021-03-31] MEDS ORDERED: PHENYLEPHRINE 100 MCG/ML 10 ML (ANESTHESIA) SYR ONE (13:04)
[2021-03-31] MEDS ORDERED: BUPIVACAINE 0.25% 30 ML (SENSORCAINE) VIAL ONE (13:41)
--- NOTE | 2021-03-31 14:07 | Operative Report - Ortho ---
Operative Report Surgeon (s)/Brush And Broom Clipper (s) Surgeon DAE RYAN MD Brush And Broom Clipper n/a Pre-Operative Diagnosis Right Intertrochanteric Femur Fracture Post-Operative Diagnosis same Operative Report Date of Procedure: Mar 31, 2021 Name of Procedure Performed: Intramedullary nailing of right intertrochanteric femur fracture Description & Findings After obtaining informed consent and marking the patient in the preoperative holding area, the patient was administered IV antibiotics and taken to the operating room. Anesthesia was induced. Patient was transferred to the fracture table. Surgical timeout was taken. The right lower extremity was placed in the traction spar and the left was placed in the well leg crane. Fracture was reducted using traction and internal rotation. The right lower extremity was prepped and draped in the usual sterile fashion. Incision was made just proximal to the greater trochanter. Blunt dissection was performed down to the tip of the trochanter. A guide wire was placed through a trochanteric entry point. Position of the wire was confirmed using C-arm. An entry reamer was then placed over the guidewire and reamed to the level of the lesser trochanter. A trochanteric gamma nail with a 120 degree angle was selected and assembled on the back table. Nail was inserted through the trochanteric entry point and seated by hand. Position of the nail was confirmed using C-arm. A guide wire was placed for the cephalomedullary screw. Version of the wire was obtained on the lateral. Measurement was taken and the reamer was set to 105 mm. Reamer was used over the guidewire and then the cephalomedullary screw was placed. Position of the cephalomedullary screw was confirmed on C-arm. Set screw was then tightened onto the cephalomedullary screw and then backed off 1/4 turn. Attention was then turned to the distal screw and using the provided guides, a 35 mm screw was placed through the dynamic portion of the distal slot. Final C arm images were obtained, demonstrated appropriate placement of hardware with adequate reduction, and were transferred to PACS. Incision sites were irrigated with normal saline. Closed subcutaneously with 2- 0 vicryl and skin was closed with delmis. Dressed with xeroform, 4x4s, ABD, and tape. Patient tolerated the procedure well and was stable to the recovery room. Anesthesia Type Spinal Estimated Blood Loss 100 mL Specimen(s) collected/removed None ADE RYAN MD Mar 31, 2021 14:07
--- NOTE | 2021-03-31 14:08 | Diagnostic Imaging Report ---
INDICATION: Right hip fracture IMPRESSION: 57 seconds of fluoroscopy was used for fixation of the right hip fracture. 3 images were obtained which shows satisfactory alignment. Dictated by: Dictated on workstation # [id number]
--- NOTE | 2021-03-31 14:12 | Physical Therapy Progress Note ---
Therapy Progress Note Patient currently in surgery. PT to begin in PRANAV Somers PT Mar 31, 2021 14:12
--- NOTE | 2021-03-31 14:19 | Occ Therapy Progress Note ---
Therapy Progress Note OT orders received, pt having surgery today. OT will initiate evaluation and tx tomorrow. CAMILLE MURO OT Mar 31, 2021 14:19
[2021-03-31] MEDS ORDERED: ONDANSETRON 4 MG/2 ML (SDV) Z0FRAN IVP PRN (14:30)
--- NOTE | 2021-03-31 15:42 | History & Physical-Hospitalist ---
REGINA BURNHAM Arnel 03/31/21 1542: History of Present Illness HPI/Chief Complaint CC: R hip fx HPI: Mr. Li is a 75 y/o male with a PMHx of osteoporosis and COPD who presented to [facility] after a fall resulting in an intertrochanteric fracture of his right femur. He is a poor historian and his son who was present provided most of the history. Mr. Li was A&Ox1, oriented only to person. He was at [facility] where he was found on the floor. He reports he had a sharp pain over his right hip that had been ongoing since his fall. His son reports this is his second fall in the last couple weeks. He complains of sharp pain over his hip with nothing making it better and movement making in worse. He complained of associated numbness in his RLE. He denies radiation of the pain. He says the pain was constant since the time of his fall and rates the severity as an 8/10. Source: patient, family Exam Limitations: other (Poor historian) Date Seen 03/31/21 Time Seen by a Provider: 09:20 Attending Physician Roxanne Morse DO [facility] Referring Physician Date of Admission Mar 30, 2021 at 18:55 Home Medications & Allergies Home Medications Reviewed patient Home Medication Reconciliation performed by pharmacy medication reconciliations automotive paint technician and/or nursing. Patients Allergies have been reviewed. Allergies Allergies Coded Allergies Penicillins (Verified Allergy, Unknown, 09/09/18) Past Szubimx-Wfdjvb-Pawlrz Hx Patient Social History Tobacco Use?: Yes Tobacco type used: Cigarettes Smoking Status: Current Everyday Smoker (1.5 PPD for 52 years) Use of E-Cig and/or Vaping dev: No Substance use?: No Alcohol Use?: No Pt feels they are or have been: No Immunizations Up To Date Date of Influenza Vaccine: Feb 06, 2019 PED Vaccines UTD: Yes Date of Pneumonia Vaccine: Nov 06, 2015 Seasonal Allergies Seasonal Allergies: No Current Status Advance Directives: Yes Advance Directive Location: Copy from prev record Communicates: Verbally Primary Language: Omani Preferred Spoken Language: Omani Is interpretation needed?: No Sensory deficits: Hearing impairment Additional sensory deficits: Pt. very [place]. Hearing aides in place. Implanted or Applied Medical D: None Past Medical History Surgeries: Bowel Surgery Currently Using CPAP: No Currently Using BIPAP: No Prostate Problems PMHx: COPD Prostate cancer s/p surgical treatment HLD PSurgHx: Prostate Family Medical History No Pertinent Family Hx (Family history asked of patient and his son. Both repo rted that any FH was unknown.) Review of Systems Constitutional: chills, fever Respiratory: No cough, No dyspnea on exertion Cardiovascular: No chest pain, No palpitations Gastrointestinal: abdominal pain; No nausea, No vomiting Physical Exam Physical Exam Vital Signs Vital Signs - First Documented 03/30/21 17:05 Temp 36.3 Pulse 76 Resp 16 B/P (MAP) 150/71 (97) Pulse Ox 96 O2 Delivery Room Air Capillary Refill : Less Than 3 SecondsLess Than 3 Seconds Height, Weight, BMI Height: 5'7.00" Weight: 120lbs. 0.0oz. [id number]; 20.78 BMI Method:Stated General Appearance: No Apparent Distress, Thin HEENT: PERRL/EOMI, Moist Mucous Membranes; No Scleral Icterus (L), No Scleral Icterus (R) Neck: Normal Inspection, Non Tender; No Lymphadenopathy (L), No Lymphadenopathy (R) Respiratory: Chest Non Tender, Lungs Clear, Normal Breath Sounds, No Accessory Muscle Use, No Respiratory Distress Cardiovascular: Regular Rate, Rhythm, No Murmur, Normal Peripheral Pulses Gastrointestinal: Normal Bowel Sounds, Non Tender (Patient reported subjectie tenderness. 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 Assessment/Plan Assessment and Plan Assessment R hip fracture - Intertrochanteric fx of R femur - Repaired today by Dr. Contreras Osteoporosis COPD Dementia Plan Surgery today with Dr. Contreras PT and OT as tolerated Possible detention facility discharge Address dementia Clinical Quality Measures DVT/VTE Risk/Contraindication: Contraindications-Pharm: Other *list below* Other: or ROXANNE MORSE DO 04/01/21 0558: History of Present Illness HPI/Chief Complaint Chief complaint: Right hip fracture History of present illness: This is a 75-year-old white male who has had a very slow decline who has dementia who presents with right hip fracture status post fall. He will undergo repair today. No details obtained due to dementia Source: patient Exam Limitations: clinical condition Past Ayjbzns-Qdaunk-Bsqjfl Hx Patient Social History Marrital Status: single Employed/Student: retired Tobacco type used: Cigarettes Smoking Status: Current Everyday Smoker (1.5 PPD for 52 years) Past Medical History Dementia Review of Systems ROS-Unable to Obtain: Dementia Constitutional: see HPI EENTM: no symptoms reported Physical Exam Physical Exam General Appearance: No Apparent Distress, Chronically ill, Thin Eyes: Right Eye Normal Inspection, Right Eye PERRL HEENT: PERRL/EOMI, Normal ENT Inspection, Pharynx Normal, Moist Mucous Membrane s Neck: Full Range of Motion, Normal Inspection, Non Tender Respiratory: Chest Non Tender, Lungs Clear, Normal Breath Sounds, No Accessory Muscle Use, No Respiratory Distress Cardiovascular: Regular Rate, Rhythm, No Edema, No Gallop, No JVD, No Murmur, Normal Peripheral Pulses Gastrointestinal: Normal Bowel Sounds, No Organomegaly, No Pulsatile Mass, Non Tender, Soft Back: Normal Inspection, No CVA Tenderness, No Vertebral Tenderness Extremity: Normal Capillary Refill, Normal Inspection, Normal Range of Motion (Except right leg), Non Tender, No Calf Tenderness, No Pedal Edema Neurologic/Psychiatric: Alert, Oriented x3, No Motor/Sensory Deficits, Normal Mood/Affect Skin: Normal Color, Warm/Dry Lymphatic: No Adenopathy Assessment/Plan Admission Diagnosis Assessment: Right hip fracture Dementia Frail status Slow decline overall with chronic debility Plan: Hip fracture repair Supportive care Admission Status: Inpatient Order (span 2 midnights) Reason for Inpatient Admission: Hip fracture Supervisory-Addendum Brief Verification & Attestation Participated in pt care: history, MDM, physical Personally performed: exam, history, MDM, supervision of care Care discussed with: Medical Student Procedures: n/a Results interpretation: Verified all documentation Verification and Attestation of Medical Student E/M Service A medical student performed and documented this service in my presence. I reviewed and verified all information documented by the medical student and made modifications to such information, when appropriate. I personally performed the physical exam and medical decision making. Roxanne Morse, Apr 01, 2021,05:58 REGINA BURNHAM Mar 31, 2021 15:42 ROXANNE MORSE DO Apr 01, 2021 05:58
[2021-04-01 00:20] VITALS: BP 118/56
[2021-04-01] MEDS: NS IV 1000 ML 1,000 ML IV SCH ×3 (00:52→21:08)
[2021-04-01 03:40] VITALS: BP 116/59
[2021-04-01 06:20] LABS: BASOPHILS # (AUTO) 0.1 10^3/uL (0.0-0.1); BASOPHILS % (AUTO) 1 % (0-10); EOSINOPHILS % (AUTO) 0 % (0-10); HEMATOCRIT 25 % (40-54); HEMOGLOBIN 7.8 g/dL (13.3-17.7); LYMPHOCYTES # (AUTO) 1.4 10^3/uL (1.0-4.0); LYMPHOCYTES % (AUTO) 14 % (12-44); MEAN CORPUSCULAR HGB CONC 32 g/dL (32-36); MEAN CORPUSCULAR VOLUME 91 fL (80-99); MEAN PLATELET VOLUME 10.1 fL (9.0-12.2); MONOCYTES # (AUTO) 1.3 10^3/uL (0.0-1.0); MONOCYTES % (AUTO) 12 % (0-12); NEUTROPHILS # (AUTO) 7.7 10^3/uL (1.8-7.8); NEUTROPHILS % (AUTO) 73 % (42-75); PLATELET COUNT 228 10^3/uL (130-400); WHITE BLOOD COUNT 10.6 10^3/uL (4.3-11.0)
[2021-04-01 06:21] LABS: MEAN CORPUSCULAR HEMOGLOBIN 28 pg (25-34)
[2021-04-01 06:43] LABS: ALBUMIN 2.8 GM/DL (3.2-4.5); BILIRUBIN,TOTAL 0.6 MG/DL (0.1-1.0); CALCIUM 8.4 MG/DL (8.5-10.1); CREATININE SERUM 0.9 MG/DL (0.60-1.30); POTASSIUM 3.7 MMOL/L (3.6-5.0); TOTAL PROTEIN 5.5 GM/DL (6.4-8.2)
[2021-04-01] MEDS: RT-ALBUTEROL/IPRATROPIUM 3 ML (DUONEB) VIAL INH SCH ×2 (07:38→20:45)
[2021-04-01 08:04] VITALS: BP 116/56
--- NOTE | 2021-04-01 08:44 | Progress Note - Ortho ---
Progress Note Subjective Date of Exam 04/01/21 Chief Complaint POD #1 R Hip Gamma Nail HPI/Events since last exam Doing well this AM. No signs of discomfort. No questions about procedure. Review of Systems not obtained Allergies: Coded Allergies: Penicillins (Verified Allergy, Unknown, 09/09/18) Home Meds Reported Medications Budesonide/Formoterol Fumarate (Symbicort 160-4.5 Mcg Inhaler) 10.2 Gm Hfa.aer.ad, 2 PUFF IH BID, EA 03/31/21 Tiotropium [place] (Spiriva) 1 Inh Aerp, 1 INH IH DAILY, EA 03/31/21 Sertraline HCl (Sertraline HCl) 25 Mg Tablet, 25 MG PO DAILY, TAB 03/31/21 Mirtazapine (Mirtazapine) 7.5 Mg Tablet, 7.5 MG PO HS, TAB 03/31/21 Hydrocodone/Acetaminophen (Hydrocodone-Acetamin 5-325 mg) 1 Each Tablet, 1 TAB PO TID, TAB 03/31/21 Lidocaine (Lidocaine 5% Patch) 1 Each Adh..patch, 1 EACH TP DAILY PRN for PAIN- BREAKTHROUGH MDD 2, PATCH APPLY TO BACK 03/31/21 Aspirin (Aspirin EC) 81 Mg Tablet.dr, 81 MG PO DAILY, TAB 03/31/21 Pantoprazole Sodium (Protonix) 40 Mg Tablet.dr, 40 MG PO DAILY, TAB 11/05/18 Sucralfate (Sucralfate) 1 Gm Tablet, 1 GM PO ACHS, TAB 11/05/18 Albuterol Sulfate (PROAIR HFA) 1 Puff Puff, 2 PUFF IH Q6H PRN for SHORTNESS OF BREATH, INHALER 09/10/18 Discontinued Reported Medications Acetaminophen (Tylenol Extra Strength) 500 Mg Tablet, 1000 MG PO Q6H PRN for PAIN-MILD (1-4), TAB 06/18/19 Atorvastatin Calcium (Atorvastatin Calcium) 40 Mg Tablet, 20 MG PO HS, TAB TAKES 1/2 (40MG) TABLET 06/18/19 Budesonide/Formoterol Fumarate (Symbicort 160-4.5 Mcg Inhaler) 10.2 Gm Hfa.aer.ad, 2 PUFF IH BID, INHALER 06/15/19 Potassium Chloride (Potassium Chloride) 20 Meq Tab.er.prt, 10 MEQ PO BID, TAB TAKES 1/2 (20MEQ) TABLET 06/15/19 Furosemide (Furosemide) 20 Mg Tablet, 20 MG PO DAILY, TAB 11/05/18 Discontinued Scripts Prednisone (Prednisone) 10 Mg Tab.ds.pk, 10 MG PO DAILY, #21 EA Take 6 tabs(60mg)daily,decrease by 1 tab(10MG)daily. Prov:NILAM MORSE DO 06/25/19 Ipratropium/Albuterol Sulfate (Iprat-Albut 0.5-3(2.5) mg/3 ml) 3 Ml Ampul.neb, 3 ML INH RTBID, #90 INHALER Prov:NILAM MORSE DO 06/25/19 Objective Exam Right Hip: Dressing C/D/I, + DF of ankle, no s/s of DVT Vital Signs Vital Signs Date Time Temp Pulse Resp B/P (MAP) Pulse Ox O2 Delivery O2 Flow Rate FiO2 04/01/21 08:04 37.0 104 20 116/56 (76) 93 Room Air 04/01/21 03:40 37.6 107 20 116/59 (78) 94 Room Air 04/01/21 00:20 36.9 110 17 118/56 (76) 93 Room Air 03/31/21 21:25 112 116/88 (97) 03/31/21 21:10 105 119/70 (86) 03/31/21 20:59 95 Room Air 03/31/21 20:55 102 119/69 (86) 03/31/21 20:40 103 117/72 (87) 03/31/21 20:25 108 121/66 (84) 03/31/21 20:10 103 113/66 (82) 03/31/21 20:00 36.6 106 20 106/55 (72) 94 Room Air 03/31/21 19:24 Room Air 03/31/21 16:00 35.7 94 18 93/54 (67) 92 Room Air 03/31/21 14:50 Room Air 03/31/21 14:50 36.3 20 92/54 (67) 93 Room Air 03/31/21 14:45 Room Air 03/31/21 14:40 20 96/54 (68) 93 Room Air 03/31/21 14:30 20 93/52 (66) 92 Room Air 03/31/21 14:30 Room Air 03/31/21 14:20 20 99/55 (70) 97 OxyMask 2 03/31/21 14:15 OxyMask 2 03/31/21 14:10 20 94/55 (68) 100 OxyMask 3 03/31/21 14:00 OxyMask 3 03/31/21 14:00 20 95/53 (67) 100 OxyMask 3 03/31/21 13:54 36.3 16 112/63 (79) 99 OxyMask 3 03/31/21 13:54 OxyMask 3 03/31/21 11:29 36.6 76 18 110/59 (76) 95 Room Air I & O 04/01/21 07:00 Intake Total 2675 ml Output Total 1225 ml Balance 1450 ml Lab Results Laboratory Tests 03/31/21 09:10: SARS-CoV-2 RNA (RT-PCR) Not Detected 04/01/21 05:42: White Blood Count 10.6, Red Blood Count 2.74L, Hemoglobin 7.8#L, Hematocrit 25L, Mean Corpuscular Volume 91, Mean Corpuscular Hemoglobin 28, Mean Corpuscular Hemoglobin Concent 32, Red Cell Distribution Width 14.2, Platelet Count 228, Mean Platelet Volume 10.1, Immature Granulocyte % (Auto) 1, Neutrophils (%) (Auto) 73, Lymphocytes (%) (Auto) 14, Monocytes (%) (Auto) 12, Eosinophils (%) (Auto) 0, Basophils (%) (Auto) 1, Neutrophils # (Auto) 7.7, Lymphocytes # (Auto) 1.4, Monocytes # (Auto) 1.3H, Eosinophils # (Auto) 0.0, Basophils # (Auto) 0.1, Immature Granulocyte # (Auto) 0.1, Sodium Level 138, Potassium Level 3.7, Chloride Level 108H, Carbon Dioxide Level 18L, Anion Gap 12, Blood Urea Nitrogen 11, Creatinine 0.90, Estimat Glomerular Filtration Rate 82, BUN/Creatinine Ratio 12, Glucose Level 113H, Calcium Level 8.4L, Corrected Calcium 9.4, Total Bilirubin 0.6, Aspartate Amino Transf (AST/SGOT) 16, Alanine Aminotransferase (ALT/SGPT) 11, Alkaline Phosphatase 48, Total Protein 5.5L, Albumin 2.8L Assessment and Plan Assessment s/p Intramedullary Nailing of Right Intertrochanteric Femur Fracture Problem List s/p Intramedullary Nailing of Right Intertrochanteric Femur Fracture Plan PT/OT; DVT Prophylaxis; Consider swing bed for strengthening if patient able to participate in program. Final Diagonsis s/p Intramedullary Nailing of Right Intertrochanteric Femur Fracture Level of the visit: Level 3 (global) Clinical Quality Measures DVT/VTE Risk/Contraindication: Contraindications-Pharm: Other *list below* Other: or ADE RYAN MD Apr 01, 2021 08:44
[2021-04-01] MEDS: polyethylene glycoL POWDER 17 GM (MIRALAX) PACK PO SCH ×2 (08:45→21:08)
[2021-04-01] MEDS: SENNA W/DOCUSATE (SENOKOT S) TABLET PO SCH ×2 (08:45→21:08)
--- NOTE | 2021-04-01 10:41 | Physical Therapy Evaluation ---
PT Evaluation-General Medical Diagnosis Admission Date Mar 30, 2021 at 18:55 Medical Diagnosis: right hip fracture Onset Date: Mar 30, 2021 Therapy Diagnosis Therapy Diagnosis: debility/weakness Height/Weight Height (Feet): 5 Height (Inches): 7.00 Weight (Pounds): 120 Weight (Ounces): 0.0 Precautions Precautions/Isolations: Fall Prevention, Standard Precautions Weight Bear Status Right Lower Extremity: Right Weight Bearing/Tolerated Left Lower Extremity: Left Full Weight Bearing Referral Physician: Ben Reason for Referral: Evaluation/Treatment Medical History Pertinent Medical History: COPD, Dementia, Smoking Current History EMS from [place] due to unwitnessed fall Reviewed History: Yes Social History Home: [facility] Prior Level of Function SCALE: Activities may be completed with or without assistive devices. 6-Gzwhebbbsn-vcpaggy completes the activity by him/herself with no assistance from a helper. 5-Set-up or Clean-up Assistance-helper sets up or cleans up; patient completes activity. [place] assists only prior to or following the activity. 4-Supervision or Touching Assistance-helper provides verbal cues and/or touching/steadying and/or contact guard assistance as patient completes activity. Assistance may be provided throughout the activity or intermittently. 3-Partial/Moderate Assistance-helper does LESS THAN HALF the effort. [place] lifts, holds or supports trunk or limbs, but provides less than half the effort. 2-Substantial/Maximal Assistance-helper does MORE THAN HALF the effort. [place] lifts or holds trunk or limbs and provides more than half the effort. 6-Myxtohkow-syyslw does ALL the effort. Patient does none of the effort to complete the activity. Or, the assistance of 2 or more helpers is required for the patient to complete the activity. If activity was not attempted, code reason: 7-Patient Refused. 9-Not Applicable-not attempted and the patient did not perform the activity before the current illness, exacerbation or injury. 10-Not Attempted due to Environmental Limitations-(lack of equipment, weather restraints, etc.). 88-Not Attempted due to Medical Conditions or Safety Concerns. Bed Mobility: 4 Transfers (B,C,W/C): 4 Gait: 4 Indoor Mobility (Ambulation): Needed Some Help Stairs: Not Applicalbe Prior Devices Use: Manual wheelchair, Walker PT Evaluation-Current Subjective Family present, patient confused. Family agrees to PT. Pain Numeric Pain Scale: 10-Worst Possible Pain Location: Right Location Body Site: Hip Pain Description: Acute Comment: FLACC Objective Patient Orientation: Confused Attachments: IV ROM/Strength ROM Lower Extremities left LE WFL/right LE limited due to pain Strength Lower Extremities right LE 3-/5 grossly/left LE 3/5 grossly ( no formal testing due to inability to follow direction) Integumentary/Posture Integumentary refer to nursing notes Bladder Incontinence: Yes Posture kyphotic Neuromuscular (Tone, Coordination, Reflexes) grossly intact (noted tremors bilateral hands) Sensory Vision: Functional Hearing: Impaired Transfers Roll Left to Right (QC): 1 Sit to Lying (QC): 1 Lying to Sitting/Side of Bed(Q: 1 Sit to Stand (QC): 1 (Patient attempted to stand to FWW, however, would not weight bear right LE with transfer to chair) Chair/Mln-wr-Fbwim Xfer(QC): 1 Gait Does the Patient Walk?: No and Walking Goal IS indicated Walk 10 feet (QC): 88 Walk 50 ft with 2 Turns(QC): 88 Walk 150 ft (QC): 88 Balance Sitting Static: Fair Sitting Dynamic: Fair Standing Static: Poor Standing Dynamic: Poor Assessment/Needs 75 y.o. male, will benefit from skilled PT to address functional strength and mobility to improve current LOF. Patient has dementia with difficulty following, or understanding, right hip pain and his ability to WBAT. PT to begin frequency 6/wk and increase to 11/wk as patient improves with pain control and tolerance of activity. Family present and agrees. 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 Goals Shelter Goals PT Shelter Goals Time Frame: May 07, 2021 Roll Left & Right (QC): 3 Sit to Lying (QC): 3 Lying-Sitting on Side/Bed(QC): 3 Sit to Stand (QC): 3 Chair/Bhf-lf-Fpawz Xfer(QC): 3 Toilet Transfer (QC): 3 Walk 10 feet (QC): 3 Walk 50ft with 2 Turns (QC): 3 PT Plan Problem List Problem List: Activity Tolerance, Functional Strength, Safety, Balance, Gait, Transfer, Bed Mobility Treatment/Plan Treatment Plan: Continue Plan of Care Treatment Plan: Bed Mobility, Education, Functional Activity [place], Functional Strength, Gait, Safety, Therapeutic Exercise, Transfers Treatment Duration: May 07, 2021 Frequency: 6 times per week (then increase to 11/wk as patient tolerates) Estimated Hrs Per Day: .25 hour per day Patient and/or Family Agrees t: Yes Discharge Recommendations Therapy Discharge Recommendati: Other, See Comments ([facility]) Time/GCodes Time In: 830 Time Out: 850 Total Billed Treatment Time: 20 Total Billed Treatment 1 visit EVModC 20 min PRANAV SAMANO PT Apr 01, 2021 10:41
[2021-04-01] MEDS: ASPIRIN E.C. 81 MG (ECOTRIN) TAB PO SCH ×2 (10:58→21:08)
[2021-04-01] MEDS ORDERED: CYANOCOBALAMIN INJ 1000 MCG/ML IM ONE (12:00)
[2021-04-01] MEDS ORDERED: IRON SUCROSE 200 MG/10 ML (VENOFER) VIAL IV ONE (12:00)
[2021-04-01 12:02] VITALS: BP 119/67
--- NOTE | 2021-04-01 13:36 | Progress Note - Hospitalist ---
REGINA BURNHAM 04/01/21 1336: Subjective HPI/CC On Admission Date Seen by Provider: Apr 01, 2021 Time Seen by Provider: 08:12 Chief complaint: Right hip fracture Subjective/Events-last exam Mr. Li is 1 day s/p R hip fx repair with Dr. Contreras. He continues to be A&Ox1, only oriented to self. He does not know where he, why he is in the hospital, or what year it is. He says that he does not have any pain this morning and that he does not have any issues. A detailed history was difficult to be obtained d/t patient mentation. A limited ROS was obtained. Review of Systems Pulmonary: No Dyspnea, No Cough Cardiovascular: No: Chest Pain Musculoskeletal: No: leg pain Focused Exam Capillary Refill: Less Than 3 Seconds Peripheral Pulses: 2+ Radial Pulses (R), 2+ Radial Pulses (L) Objective Exam Vital Signs Vital Signs Date Time Temp Pulse Resp B/P (MAP) Pulse Ox O2 Delivery O2 Flow Rate FiO2 04/01/21 12:02 37.0 96 18 119/67 (84) 97 Room Air 03/31/21 14:20 2 Capillary Refill : Less Than 3 SecondsLess Than 3 Seconds General Appearance: No Apparent Distress, Thin HEENT: PERRL/EOMI, Moist Mucous Membranes; No Scleral Icterus (L), No Scleral Icterus (R) Neck: Normal Inspection, Non Tender Respiratory: Chest Non Tender, Lungs Clear, Normal Breath Sounds, No Accessory Muscle Use, No Respiratory Distress Cardiovascular: Regular Rate, Rhythm, No Murmur, Normal Peripheral Pulses Gastrointestinal: Non Tender, Soft Extremity: Normal Capillary Refill, Normal Inspection, Non Tender, Other (Dressing on R hip) Neurologic/Psychiatric: Alert; No Oriented x3 (Oriented x1 as described in HPI); 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 Assessment/Plan Assessment and Plan Assess & Plan/Chief Complaint Assessment R hip fracture - Intertrochanteric fx of R femur - Repaired yesterday by Dr. Contreras Osteoporosis COPD Dementia Plan PT and OT as tolerated Possible snf facility discharge Address dementia D/c soon Clinical Quality Measures DVT/VTE Risk/Contraindication: Contraindications-Pharm: Other *list below* Other: or ROXANNE MORSE DO 04/02/21 0621: Subjective Subjective/Events-last exam Patient up in chair Dementia is severe Son insisting on DC home with him Review of Systems General: Fatigue, Malaise Musculoskeletal: leg pain Neurological: Confusion Objective Exam General Appearance: No Apparent Distress, WD/WN, Chronically ill, Thin Respiratory: Lungs Clear, Normal Breath Sounds Cardiovascular: Regular Rate, Rhythm Neurologic/Psychiatric: Alert, Oriented x3, No Motor/Sensory Deficits, Normal Mood/Affect Assessment/Plan Assessment and Plan Assess & Plan/Chief Complaint Dementia is severe Iron infusions Supervisory-Addendum Brief Verification & Attestation Participated in pt care: history, MDM, physical Personally performed: exam, history, MDM, supervision of care Care discussed with: Medical Student Procedures: n/a Results interpretation: Verified all documentation Verification and Attestation of Medical Student E/M Service A medical student performed and documented this service in my presence. I reviewed and verified all information documented by the medical student and made modifications to such information, when appropriate. I personally performed the physical exam and medical decision making. Roxanne Morse, Apr 02, 2021,06:20 REGINA BURNHAM Apr 01, 2021 13:36 ROXANNE MORSE DO Apr 02, 2021 06:21
--- NOTE | 2021-04-01 14:17 | Anesthesia-Regional Post-Op ---
Regional Patient Condition Mental Status: Alert, Oriented x3 Circulation: Same as Pre-Op Headache: Absent Sensation: Full Recovery Motor Block: Absent Post Op Complications Complications None Follow Up Care/Instructions Patient Instructions None needed. Anesthesia/Patient Condition Patient is doing well, no complaints, stable vital signs, no apparent adverse anesthesia problems. No complications reported per nursing. ABNER AMAYA CRNA Apr 01, 2021 14:17
--- NOTE | 2021-04-01 15:17 | Occupational Therapy Eval ---
OT Evaluation-General/PLF Medical Diagnosis Admission Date Mar 30, 2021 at 18:55 Medical Diagnosis: right hip fracture Onset Date: Mar 30, 2021 Therapy Diagnosis Therapy Diagnosis: decreased ADL status Height/Weight Height (Feet): 5 Height (Inches): 7.00 Weight (Pounds): 120 Weight (Ounces): 0.0 Precautions Precautions/Isolations: Fall Prevention, Standard Precautions Referral Physician: Ben Referral Reason: Evaluation/Treatment Medical History Pertinent Medical History: COPD, Dementia, Smoking Additional Medical History osteoporosis, prostate cancer s/p surgical intervention, COPD, HLD Current History ED from [facility] following unwitnessed fall. s/p IM nail R hip 03/31/21 Social History Home: Long-Term ADL-Prior Level of Function SCALE: Activities may be completed with or without assistive devices. 9-Riycorosrw-rliifkp completes the activity by him/herself with no assistance from a helper. 5-Set-up or Clean-up Assistance-helper sets up or cleans up; patient completes activity. [place] assists only prior to or following the activity. 4-Supervision or Touching Assistance-helper provides verbal cues and/or touching/steadying and/or contact guard assistance as patient completes activity. Assistance may be provided throughout the activity or intermittently. 3-Partial/Moderate Assistance-helper does LESS THAN HALF the effort. [place] lifts, holds or supports trunk or limbs, but provides less than half the effort. 2-Substantial/Maximal Assistance-helper does MORE THAN HALF the effort. [place] lifts or holds trunk or limbs and provides more than half the effort. 5-Hgilxpmvd-lkekgb does ALL the effort. Patient does none of the effort to complete the activity. Or, the assistance of 2 or more helpers is required for the patient to complete the activity. If activity was not attempted, code reason: 7-Patient Refused. 9-Not Applicable-not attempted and the patient did not perform the activity before the current illness, exacerbation or injury. 10-Not Attempted due to Environmental Limitations-(lack of equipment, weather restraints, etc.). 88-Not Attempted due to Medical Conditions or Safety Concerns. ADL PLOF Comments Pt unable to provide information about PLOF. Per chart review, pt arrived from [place]. Self Care: Needed Some Help Functional Cognition: Needed Some Help OT Current Status Subjective Pt up in chair, initially agreeable to OT evaluation but later refused all activities provided, even with education. Mental Status/Objective Patient Orientation: Person Current Upper Extremity ROM WFL, BUE shoulder flexion to approx 150 degrees ADL-Treatment Eating (QC): 5 (Pt able to eat chicken strips without assistance. Pt would require assistance opening sauce containers.) Shower/Bathe Self (QC): 1 (based on clincial judgment, assist x2 required for task.) Lower Body Dressing (QC): 1 (based on clincial judgment, assist x2 required for task.) On/Off Footwear (QC): 1 (based on clincial judgment.) Toileting Hygiene (QC): 1 (based on clincial judgment, assist x2 required for task.) Other Treatments Pt up in recliner. OT educated pt on purpose and benefit of OT, he verbalized understanding. Pt provided information about PLOF to his ability, but accuracy of information unknown. Pt initially indicates he was able to take care of himself and was living with family, but later states he had assistance at the [facility]. Pt finished wiht lunch, able to eat 1 chicken strip and some of his mashed potatoes. PT states he doesn't want any more. Based on clinical judgment, pt would require assistance opening sauce containers. OT offered ADLs, pt adamantly declined. OT also encouraged pt to complete BUE exercises, but he again adamantly refused. OT educated pt on purpose and benefit of OT, but he continued to declined activities on this date. Per PT evaluation, pt required t otal assistance with rolling, sit to lying, lying to sitting, and sit to stand transfers. Post tx, pt up in recliner, call light in reach and all needs met. Education OT Patient Education: Correct positioning, Energy conservation, Modified ADL techniques, Progress toward Goal/Update tx plan, Purpose of tx/functional activities, Rehab process Teaching Recipient: Patient Teaching Methods: Discussion Response to Teaching: Reinforcement Needed OT Usp Goals Sewer Connector Goals Time Frame: Apr 15, 2021 Eating (QC): 5 Oral Hygiene (QC): 5 Toileting Hygiene (QC): 2 Shower/Bathe Self (QC): 2 Upper Body Dressing (QC): 3 Lower Body Dressing (QC): 2 On/Off Footwear (QC): 2 Additional Goals: 1-Demonstrate ADL Tasks, 2-Verbalize Understanding, 3- ImproveStrength/[place] 1=Demonstrate adherence to instructed precautions during ADL tasks. 2=Patient will verbalize/demonstrate understanding of assistive devices/modifications for ADL. 3=Patient will improve strength/tolerance for activity to enable patient to perform ADL's. OT Education/Plan Problem List/Assessment Assessment: Decreased Activ Tolerance, Decreased Safety Aware, Decreased UE Strength, Impaired Cognition, Impaired Funct Balance, Impaired I ADL's, Impaired Self-Care Skills Discharge Recommendations Plan/Recommendations: Continue POC Therapy Discharge Recommendati: Other, See Comments ([place]) Treatment Plan/Plan of Care Patient would benefit from OT for education, treatment and training to promote independence in ADL's, mobility, safety and/or upper extremity function for ADL's. Plan of Care: ADL Retraining, Functional Mobility, UE Funct Exercise/Act Treatment Duration: Apr 15, 2021 Frequency: 3 times per week (3-5 times a week) Rehab Potential: Guarded Time/GCodes Start Time: 13:33 Stop Time: 13:43 Total Time Billed (hr/min): 10 Billed Treatment Time 1, CAMILLE GARAY OT Apr 01, 2021 15:17
[2021-04-01 16:00] VITALS: BP 115/59
[2021-04-01 19:37] VITALS: BP 121/62
[2021-04-02] VITALS (9 sets, daily range): BP systolic 99–122; BP diastolic 51–63
[2021-04-02 06:02] LABS: BASOPHILS # (AUTO) 0.1 10^3/uL (0.0-0.1); BASOPHILS % (AUTO) 1 % (0-10); EOSINOPHILS # (AUTO) 0.2 10^3/uL (0.0-0.3); EOSINOPHILS % (AUTO) 2 % (0-10); HEMATOCRIT 22 % (40-54); LYMPHOCYTES # (AUTO) 1.6 10^3/uL (1.0-4.0); LYMPHOCYTES % (AUTO) 16 % (12-44); MEAN CORPUSCULAR HEMOGLOBIN 29 pg (25-34); MEAN CORPUSCULAR HGB CONC 32 g/dL (32-36); MEAN CORPUSCULAR VOLUME 91 fL (80-99); MONOCYTES # (AUTO) 1.1 10^3/uL (0.0-1.0); MONOCYTES % (AUTO) 12 % (0-12); NEUTROPHILS # (AUTO) 6.7 10^3/uL (1.8-7.8); NEUTROPHILS % (AUTO) 69 % (42-75); PLATELET COUNT 225 10^3/uL (130-400); WHITE BLOOD COUNT 9.7 10^3/uL (4.3-11.0)
[2021-04-02 06:07] LABS: HEMOGLOBIN 6.9 g/dL (13.3-17.7)
[2021-04-02 06:14] LABS: ALBUMIN 2.5 GM/DL (3.2-4.5); POTASSIUM 3.7 MMOL/L (3.6-5.0)
[2021-04-02 06:15] LABS: CALCIUM 8.1 MG/DL (8.5-10.1)
[2021-04-02 06:16] LABS: TOTAL PROTEIN 5.1 GM/DL (6.4-8.2)
[2021-04-02 06:18] LABS: BILIRUBIN,TOTAL 0.4 MG/DL (0.1-1.0)
[2021-04-02 06:20] LABS: CREATININE SERUM 0.84 MG/DL (0.60-1.30)
[2021-04-02] MEDS ORDERED: CYANOCOBALAMIN INJ 1000 MCG/ML IM ONE (06:45)
[2021-04-02] MEDS ORDERED: NS IV 500 ML 500 ML IV SCH ×2 (06:45)
[2021-04-02] MEDS: RT-ALBUTEROL/IPRATROPIUM 3 ML (DUONEB) VIAL INH SCH ×2 (07:39→19:17)
[2021-04-02] MEDS: ASPIRIN E.C. 81 MG (ECOTRIN) TAB PO SCH ×2 (08:53→21:25)
[2021-04-02] MEDS: SENNA W/DOCUSATE (SENOKOT S) TABLET PO SCH ×2 (08:53→21:25)
[2021-04-02] MEDS: polyethylene glycoL POWDER 17 GM (MIRALAX) PACK PO SCH ×2 (08:54→21:25)
--- NOTE | 2021-04-02 10:19 | Physical Therapy Progress Note ---
Therapy Progress Note PT held this date. Hgb 6.9, supine BP 99/60, waiting on transfusion. CARLOTA DOWNEY DPT Apr 02, 2021 10:19
--- NOTE | 2021-04-02 11:08 | Progress Note - Hospitalist ---
Subjective HPI/CC On Admission Date Seen by Provider: Apr 02, 2021 Time Seen by Provider: 11:00 Chief complaint: Right hip fracture Subjective/Events-last exam Patient doing about the same Sleeps a lot Giving 1 unit of blood Son at bedside Talk to son about hospice since he wants to take him home that would give him additional resources Objective Exam Vital Signs Vital Signs Date Time Temp Pulse Resp B/P (MAP) Pulse Ox O2 Delivery O2 Flow Rate FiO2 04/03/21 03:44 36.8 84 17 16/67 (50) 90 Room Air 03/31/21 14:20 2 Capillary Refill : Less Than 3 SecondsLess Than 3 Seconds General Appearance: No Apparent Distress, WD/WN, Chronically ill, Thin, Other (Sleeping) Respiratory: Lungs Clear Cardiovascular: Regular Rate, Rhythm Results/Procedures Lab Patient resulted labs reviewed. Assessment/Plan Assessment and Plan Assess & Plan/Chief Complaint Assessment: Status post fracture Severe debility Postop anemia from acute blood loss receiving transfusion Iron deficiency anemia receiving iron infusions Dementia Plan: Transfuse Hospice candidate Clinical Quality Measures DVT/VTE Risk/Contraindication: Contraindications-Pharm: Other *list below* Other: or NILAM MORSE DO Apr 02, 2021 11:08
[2021-04-03] VITALS (8 sets, daily range): BP systolic 16–116; BP diastolic 56–69
[2021-04-03 06:58] LABS: BASOPHILS # (AUTO) 0.1 10^3/uL (0.0-0.1); BASOPHILS % (AUTO) 1 % (0-10); EOSINOPHILS # (AUTO) 0.3 10^3/uL (0.0-0.3); EOSINOPHILS % (AUTO) 4 % (0-10); HEMATOCRIT 24 % (40-54); HEMOGLOBIN 7.7 g/dL (13.3-17.7); LYMPHOCYTES # (AUTO) 1.8 10^3/uL (1.0-4.0); LYMPHOCYTES % (AUTO) 18 % (12-44); MEAN CORPUSCULAR HEMOGLOBIN 29 pg (25-34); MEAN CORPUSCULAR HGB CONC 33 g/dL (32-36); MEAN CORPUSCULAR VOLUME 87 fL (80-99); MEAN PLATELET VOLUME 9.9 fL (9.0-12.2); MONOCYTES # (AUTO) 1.1 10^3/uL (0.0-1.0); MONOCYTES % (AUTO) 12 % (0-12); NEUTROPHILS # (AUTO) 6.5 10^3/uL (1.8-7.8); NEUTROPHILS % (AUTO) 66 % (42-75); PLATELET COUNT 256 10^3/uL (130-400); WHITE BLOOD COUNT 9.8 10^3/uL (4.3-11.0)
[2021-04-03 07:07] LABS: ALBUMIN 2.4 GM/DL (3.2-4.5); CHLORIDE 110 MMOL/L (98-107); POTASSIUM 3.5 MMOL/L (3.6-5.0); SODIUM 139 MMOL/L (135-145)
[2021-04-03 07:09] LABS: GLUCOSE 107 MG/DL (70-105); TOTAL PROTEIN 4.7 GM/DL (6.4-8.2)
[2021-04-03 07:10] LABS: CARBON DIOXIDE 18 MMOL/L (21-32)
[2021-04-03 07:11] LABS: BILIRUBIN,TOTAL 0.6 MG/DL (0.1-1.0)
[2021-04-03 07:13] LABS: ALKALINE PHOSPHATASE 45 U/L (40-136); CREATININE SERUM 0.82 MG/DL (0.60-1.30); GFR ESTIMATED 91
[2021-04-03 07:14] LABS: BUN/CREATININE RATIO 13
[2021-04-03 07:16] LABS: ALANINE AMINOTRANSFERASE < 6 U/L (0-55)
[2021-04-03] MEDS: RT-ALBUTEROL/IPRATROPIUM 3 ML (DUONEB) VIAL INH SCH ×4 (08:14→21:21)
[2021-04-03] MEDS: ASPIRIN E.C. 81 MG (ECOTRIN) TAB PO SCH ×2 (08:36→20:02)
[2021-04-03] MEDS: SENNA W/DOCUSATE (SENOKOT S) TABLET PO SCH ×2 (08:36→20:02)
[2021-04-03] MEDS: polyethylene glycoL POWDER 17 GM (MIRALAX) PACK PO SCH ×2 (08:36→20:02)
[2021-04-03] MEDS ORDERED: IRON SUCROSE 200 MG/10 ML (VENOFER) VIAL IV SCH (09:00)
--- NOTE | 2021-04-03 09:11 | Physical Therapy Progress Note ---
Therapy Progress Note Nursing hold this date as Pt's Hgb is 7.7 and he is requiring oxygen now. Nursing reports that the discharge plan is likely home with hospice. CARLOTA DOWNEY DPT Apr 03, 2021 09:11
--- NOTE | 2021-04-03 10:51 | Progress Note - Hospitalist ---
Subjective HPI/CC On Admission Date Seen by Provider: Apr 03, 2021 Time Seen by Provider: 11:00 Chief complaint: Right hip fracture Subjective/Events-last exam Patient asleep Son at bedside Hemoglobin noted Supportive care Talked about hospice options Objective Exam Vital Signs Vital Signs Date Time Temp Pulse Resp B/P (MAP) Pulse Ox O2 Delivery O2 Flow Rate FiO2 04/03/21 19:23 37.1 93 20 113/58 (76) 96 Nasal Cannula 1.50 04/03/21 09:43 24 Capillary Refill : Less Than 3 SecondsLess Than 3 Seconds General Appearance: No Apparent Distress, WD/WN, Chronically ill, Thin Respiratory: Lungs Clear, Normal Breath Sounds Cardiovascular: Regular Rate, Rhythm Results/Procedures Lab Laboratory Tests 04/03/21 06:40 Patient resulted labs reviewed. Assessment/Plan Assessment and Plan Assess & Plan/Chief Complaint Assessment: Status post fracture Severe debility Postop anemia from acute blood loss receiving transfusion Iron deficiency anemia receiving iron infusions Dementia Plan: Transfuse Hospice candidate 04/03/2021: Discuss hospice with son Clinical Quality Measures DVT/VTE Risk/Contraindication: Contraindications-Pharm: Other *list below* Other: or NILAM MORSE DO Apr 03, 2021 10:51
[2021-04-03] MEDS ORDERED: FLU QUAD HIGH DOSE 240 MCG/0.7 ML 2021-22 (FLUZONE) IM ONE (13:00)
[2021-04-03] MEDS: morphine INJ 10 MG/ML 1ML (SYR OR VIAL) IVP PRN (20:02)
[2021-04-04] MEDS: RT-ALBUTEROL/IPRATROPIUM 3 ML (DUONEB) VIAL INH SCH ×3 (02:55→09:58)
[2021-04-04] MEDS: morphine INJ 10 MG/ML 1ML (SYR OR VIAL) IVP PRN (04:08)
[2021-04-04 04:09] VITALS: BP 116/62
[2021-04-04 06:22] LABS: BASOPHILS # (AUTO) 0.1 10^3/uL (0.0-0.1); BASOPHILS % (AUTO) 1 % (0-10); EOSINOPHILS # (AUTO) 0.5 10^3/uL (0.0-0.3); EOSINOPHILS % (AUTO) 6 % (0-10); HEMATOCRIT 23 % (40-54); HEMOGLOBIN 7.4 g/dL (13.3-17.7); LYMPHOCYTES # (AUTO) 1.5 10^3/uL (1.0-4.0); LYMPHOCYTES % (AUTO) 17 % (12-44); MEAN CORPUSCULAR HEMOGLOBIN 28 pg (25-34); MEAN CORPUSCULAR HGB CONC 32 g/dL (32-36); MEAN CORPUSCULAR VOLUME 89 fL (80-99); MEAN PLATELET VOLUME 9.5 fL (9.0-12.2); MONOCYTES # (AUTO) 1.1 10^3/uL (0.0-1.0); MONOCYTES % (AUTO) 12 % (0-12); NEUTROPHILS # (AUTO) 5.6 10^3/uL (1.8-7.8); NEUTROPHILS % (AUTO) 63 % (42-75); PLATELET COUNT 301 10^3/uL (130-400); WHITE BLOOD COUNT 8.8 10^3/uL (4.3-11.0)
[2021-04-04 06:37] LABS: ALBUMIN 2.4 GM/DL (3.2-4.5); BILIRUBIN,TOTAL 0.6 MG/DL (0.1-1.0); CALCIUM 8.3 MG/DL (8.5-10.1); CREATININE SERUM 0.9 MG/DL (0.60-1.30); POTASSIUM 3.4 MMOL/L (3.6-5.0); TOTAL PROTEIN 4.8 GM/DL (6.4-8.2)
[2021-04-04] MEDS ORDERED: KCL 20 MEQ TAB (K-DUR) PO SCH (07:15)
[2021-04-04 07:42] VITALS: BP 103/51
[2021-04-04] MEDS: ASPIRIN E.C. 81 MG (ECOTRIN) TAB PO SCH (09:17)
[2021-04-04] MEDS: SENNA W/DOCUSATE (SENOKOT S) TABLET PO SCH (09:17)
[2021-04-04] MEDS: polyethylene glycoL POWDER 17 GM (MIRALAX) PACK PO SCH (09:17)
--- NOTE | 2021-04-04 09:25 | Progress Note - Ortho ---
Progress Note Subjective Date of Exam 04/04/21 Chief Complaint POD #4 R Hip Gamma Nail HPI/Events since last exam Not much progress with therapy. Arrangments being made for possible hospice. Patient without complaints or difficulties. Review of Systems not obtained Allergies: Coded Allergies: Penicillins (Verified Allergy, Unknown, 09/09/18) Home Meds Reported Medications Budesonide/Formoterol Fumarate (Symbicort 160-4.5 Mcg Inhaler) 10.2 Gm Hfa.aer.ad, 2 PUFF IH BID, EA 03/31/21 Tiotropium [place] (Spiriva) 1 Inh Aerp, 1 INH IH DAILY, EA 03/31/21 Sertraline HCl (Sertraline HCl) 25 Mg Tablet, 25 MG PO DAILY, TAB 03/31/21 Mirtazapine (Mirtazapine) 7.5 Mg Tablet, 7.5 MG PO HS, TAB 03/31/21 Hydrocodone/Acetaminophen (Hydrocodone-Acetamin 5-325 mg) 1 Each Tablet, 1 TAB PO TID, TAB 03/31/21 Lidocaine (Lidocaine 5% Patch) 1 Each Adh..patch, 1 EACH TP DAILY PRN for PAIN-BREAKTHROUGH MDD 2, PATCH APPLY TO BACK 03/31/21 Aspirin (Aspirin EC) 81 Mg Tablet.dr, 81 MG PO DAILY, TAB 03/31/21 Pantoprazole Sodium (Protonix) 40 Mg Tablet.dr, 40 MG PO DAILY, TAB 11/05/18 Sucralfate (Sucralfate) 1 Gm Tablet, 1 GM PO ACHS, TAB 11/05/18 Albuterol Sulfate (PROAIR HFA) 1 Puff Puff, 2 PUFF IH Q6H PRN for SHORTNESS OF BREATH, INHALER 09/10/18 Discontinued Reported Medications Acetaminophen (Tylenol Extra Strength) 500 Mg Tablet, 1000 MG PO Q6H PRN for PAIN-MILD (1-4), TAB 06/18/19 Atorvastatin Calcium (Atorvastatin Calcium) 40 Mg Tablet, 20 MG PO HS, TAB TAKES 1/2 (40MG) TABLET 06/18/19 Budesonide/Formoterol Fumarate (Symbicort 160-4.5 Mcg Inhaler) 10.2 Gm Hfa.aer.ad, 2 PUFF IH BID, INHALER 06/15/19 Potassium Chloride (Potassium Chloride) 20 Meq Tab.er.prt, 10 MEQ PO BID, TAB TAKES 1/2 (20MEQ) TABLET 06/15/19 Furosemide (Furosemide) 20 Mg Tablet, 20 MG PO DAILY, TAB 11/05/18 Discontinued Scripts Prednisone (Prednisone) 10 Mg Tab.ds.pk, 10 MG PO DAILY, #21 EA Take 6 tabs(60mg)daily,decrease by 1 tab(10MG)daily. Prov:NILAM MORSE DO 06/25/19 Ipratropium/Albuterol Sulfate (Iprat-Albut 0.5-3(2.5) mg/3 ml) 3 Ml Ampul.neb, 3 ML INH RTBID, #90 INHALER Prov:NILAM MORSE DO 06/25/19 Objective Exam Right Hip: Dressing C/D/I, +DF, no s/s of DVT Vital Signs Vital Signs Date Time Temp Pulse Resp B/P (MAP) Pulse Ox O2 Delivery O2 Flow Rate FiO2 04/04/21 07:42 36.5 82 18 103/51 (68) 93 Nasal Cannula 1.00 04/04/21 07:22 93 Nasal Cannula 1.00 04/04/21 07:20 Nasal Cannula 1.00 04/04/21 04:09 37.1 88 18 116/62 (80) 93 Nasal Cannula 1.00 04/03/21 23:28 36.9 89 16 98/56 (70) 94 Nasal Cannula 1.00 04/03/21 21:21 93 Nasal Cannula 1.00 04/03/21 20:00 Nasal Cannula 1.00 04/03/21 19:23 37.1 93 20 113/58 (76) 96 Nasal Cannula 1.50 04/03/21 18:39 93 Nasal Cannula 1.00 04/03/21 15:30 37.0 96 20 105/59 (74) 95 Nasal Cannula 1.00 04/03/21 14:48 93 Nasal Cannula 1.00 04/03/21 11:17 36.6 84 18 114/69 (84) 97 Nasal Cannula 1.00 04/03/21 09:43 37.2 96 93 24 I & O 04/04/21 07:00 Intake Total 643 ml Balance 643 ml Lab Results Laboratory Tests 04/04/21 06:06: White Blood Count 8.8, Red Blood Count 2.62L, Hemoglobin 7.4L, Hematocrit 23L, Mean Corpuscular Volume 89, Mean Corpuscular Hemoglobin 28, Mean Corpuscular Hemoglobin Concent 32, Red Cell Distribution Width 15.5H, Platelet Count 301, Mean Platelet Volume 9.5, Immature Granulocyte % (Auto) 1, Neutrophils (%) (Auto) 63, Lymphocytes (%) (Auto) 17, Monocytes (%) (Auto) 12, Eosinophils (%) (Auto) 6, Basophils (%) (Auto) 1, Neutrophils # (Auto) 5.6, Lymphocytes # (Auto) 1.5, Monocytes # (Auto) 1.1H, Eosinophils # (Auto) 0.5H, Basophils # (Auto) 0.1, Immature Granulocyte # (Auto) 0.0, Sodium Level 141, Potassium Level 3.4L, Chloride Level 112H, Carbon Dioxide Level 19L, Anion Gap 10, Blood Urea Nitrogen 9, Creatinine 0.90, Estimat Glomerular Filtration Rate 82, BUN/Creatinine Ratio 10, Glucose Level 103, Calcium Level 8.3L, Corrected Calcium 9.6, Total Bilirubin 0.6, Aspartate Amino Transf (AST/SGOT) 12, Alanine Aminotransferase (ALT/SGPT) 7, Alkaline Phosphatase 41, Total Protein 4.8L, Albumin 2.4L Microbiology 03/31/21 MRSA Screen - Final, Complete MRSA not isolated Assessment and Plan Assessment s/p IM nailing of R IT Femur Fx Problem List s/p IM nailing of R IT Femur Fx Plan DVT Prophylaxis [place] out 2 weeks from date of surgery Recommend F/U with me with x-rays ~1 month from date of surgery Final Diagonsis s/p IM nailing of R IT Femur Fx Level of the visit: Level 3 (global postop) Clinical Quality Measures DVT/VTE Risk/Contraindication: Contraindications-Pharm: Other *list below* Other: or ADE RYAN MD Apr 04, 2021 09:25
--- NOTE | 2021-04-04 10:04 | Physical Therapy Daily Note ---
PT Daily Note-Current Subjective Patient agrees to up to recliner. More alert on this date. Pain Numeric Pain Scale: 5-Moderate Pain Location: Right Location Body Site: Hip Pain Description: Acute Comment: FLACC Mental Status Patient Orientation: Confused Attachments: Oxygen Transfers SCALE: Activities may be completed with or without assistive devices. 5-Qiylacmqlj-ikjznur completes the activity by him/herself with no assistance from a helper. 5-Set-up or Clean-up Assistance-helper sets up or cleans up; patient completes activity. [place] assists only prior to or following the activity. 4-Supervision or Touching Assistance-helper provides verbal cues and/or touching/steadying and/or contact guard assistance as patient completes activity . Assistance may be provided throughout the activity or intermittently. 3-Partial/Moderate Assistance-helper does LESS THAN HALF the effort. [place] lifts, holds or supports trunk or limbs, but provides less than half the effort. 2-Substantial/Maximal Assistance-helper does MORE THAN HALF the effort. [place] lifts or holds trunk or limbs and provides more than half the effort. 1-Mmscrlypp-woarjc does ALL the effort. Patient does none of the effort to complete the activity. Or, the assistance of 2 or more helpers is required for the patient to complete the activity. If activity was not attempted, code reason: 7-Patient Refused. 9-Not Applicable-not attempted and the patient did not perform the activity before the current illness, exacerbation or injury. 10-Not Attempted due to Environmental Limitations-(lack of equipment, weather restraints, etc.). 88-Not Attempted due to Medical Conditions or Safety Concerns. Lying to Sitting/Side of Bed(Q: 2 Sit to Stand (QC): 2 Chair/Fat-au-Qlyfb Xfer(QC): 2 Weight Bearing Right Lower Extremity: Right Weight Bearing/Tolerated Left Lower Extremity: Left Full Weight Bearing Gait Training Does the Patient Walk?: No and Walking Goal IS indicated Exercises Seated Therapy Exercises: Long arc quads Seated Reps: 12 (AAROM) Assessment Patient up to recliner and tolerates minimal activity. Increase SOA with activity. Breakfast in situ PT Back Maker Goals Senior Living Goals PT Senior Living Goals Time Frame: May 07, 2021 Roll Left & Right (QC): 3 Sit to Lying (QC): 3 Lying-Sitting on Side/Bed(QC): 3 Sit to Stand (QC): 3 Chair/Mmv-qm-Vdwbu Xfer(QC): 3 Toilet Transfer (QC): 3 Walk 10 feet (QC): 3 Walk 50ft with 2 Turns (QC): 3 PT Plan Treatment/Plan Treatment Plan: Continue Plan of Care Treatment Plan: Bed Mobility, Education, Functional Activity [place], Functional Strength, Gait, Safety, Therapeutic Exercise, Transfers Treatment Duration: May 07, 2021 Frequency: 6 times per week Estimated Hrs Per Day: .25 hour per day Patient and/or Family Agrees t: Yes Time/GCodes Time In: 800 Time Out: 816 Total Billed Treatment Time: 16 Total Billed Treatment 1 visit FA 16 min PRANAV SAMANO PT Apr 04, 2021 10:04
[2021-04-04 11:59] VITALS: BP 95/57
--- NOTE | 2021-04-04 13:36 | Discharge Summary ---
Discharge Summary Hospital Course Hospital Course Date of Admission: Mar 30, 2021 at 18:55 Admission Diagnosis : [facility] [place]: [facility]21 Discharge Diagnosis: 04/04/21 Hospital Course: 75 year old male with history of osteoporosis, COPD, tobacco use, MDD, GERD, dementia presented after found down [facility] his [facility] with right hip pain. Initial workup notable for negative CT head and hip XR with right intertrochanteric femur fracture. Patient underwent intramedullary nail placement 03/31 and pain was well-controlled post-operatively. Hospital course complicated by drop in hemoglobin requiring 1 uPRBCs as well as hypoxia to high 80s on room air, on NC while admitted. Given patient's mental status and poor functional capacity, goals of care were discussed and the family elected to take patient home with [facility] on 04/04/21. Inhalers, PPI, and antidepressants continued at discharge. Labs and Pending Lab Test: Laboratory Tests 04/04/21 06:06: White Blood Count 8.8, Red Blood Count 2.62L, Hemoglobin 7.4L, Hematocrit 23L, Mean Corpuscular Volume 89, Mean Corpuscular Hemoglobin 28, Mean Corpuscular Hemoglobin Concent 32, Red Cell Distribution Width 15.5H, Platelet Count 301, Mean Platelet Volume 9.5, Immature Granulocyte % (Auto) 1, Neutrophils (%) (Auto) 63, Lymphocytes (%) (Auto) 17, Monocytes (%) (Auto) 12, Eosinophils (%) (Auto) 6, Basophils (%) (Auto) 1, Neutrophils # (Auto) 5.6, Lymphocytes # (Auto) 1.5, Monocytes # (Auto) 1.1H, Eosinophils # (Auto) 0.5H, Basophils # (Auto) 0.1, Immature Granulocyte # (Auto) 0.0, Sodium Level 141, Potassium Level 3.4L, Chloride Level 112H, Carbon Dioxide Level 19L, Anion Gap 10, Blood Urea Nitrogen 9, Creatinine 0.90, Estimat Glomerular Filtration Rate 82, BUN/Creatinine Ratio 10, Glucose Level 103, Calcium Level 8.3L, Corrected Calcium 9.6, Total Bilirubin 0.6, Aspartate Amino Transf (AST/SGOT) 12, Alanine Aminotransferase (ALT/SGPT) 7, Alkaline Phosphatase 41, Total Protein 4.8L, Albumin 2.4L Microbiology 03/31/21 MRSA Screen - Final, Complete MRSA not isolated Home Meds Active Reported Symbicort 160-4.5 Mcg Inhaler (Budesonide/Formoterol Fumarate) 10.2 Gm Hfa.aer.ad 2 Puff IH BID Spiriva (Tiotropium [place]) 1 Inh Aerp 1 Inh IH DAILY Sertraline HCl 25 Mg Tablet 25 Mg PO DAILY Mirtazapine 7.5 Mg Tablet 7.5 Mg PO HS Hydrocodone-Acetamin 5-325 mg (Hydrocodone/Acetaminophen) 1 Each Tablet 1 Tab PO TID Lidocaine 5% Patch (Lidocaine) 1 Each Adh..patch 1 Each TP DAILY PRN MDD 2 APPLY TO BACK Protonix (Pantoprazole Sodium) 40 Mg Tablet.dr 40 Mg PO DAILY Sucralfate 1 Gm Tablet 1 Gm PO ACHS Proair Hfa (Albuterol Sulfate) 1 Puff Puff 2 Puff IH Q6H PRN Assessment/Pt DC Instructions Right hip fracture Anemia Acute Hypoxic Respiratory Failure Debility Discharge Diet: No Restrictions Activity as Tolerated: Yes Consulations Consultations Orthopedic Surgery Discharge Physical Examination Allergies: Coded Allergies: Penicillins (Verified Allergy, Unknown, 09/09/18) General Appearance: No Apparent Distress HEENT: Moist Mucous Membranes Respiratory: Chest Non Tender, Lungs Clear (Diminished right-sided lung sounds) Cardiovascular: Regular Rate, Rhythm, No Edema, No Murmur Gastrointestinal: Normal Bowel Sounds Extremity: Other (Bandage in place over right hip ) Skin: Normal Color, Warm/Dry Neurologic/Psychiatric: Alert, Oriented x3, Other (Hard of hearing) Clinical Quality Measures DVT/VTE Risk/Contraindication: Contraindications-Pharm: Other *list below* Other: or HERON ROMERO MD Apr 04, 2021 13:30
--- NOTE | 2021-04-04 13:59 | Occ Therapy Progress Note ---
Therapy Progress Note OT attempted tx. Pt laying in bed, eyes closed. Pt easily awoken but had difficulty understanding therapist due to [place]. OT encouraged pt to perform exercises to which he replied "you can". OT informed pt she would like him to participate, but he refused, stating "I'm not doing it". OT attempted to provide education on purpose and benefit of OT, but pt had difficulty understanding due to [place], even when OT spoke louder. Per pt's nurse, pt is discharging from the hospital later today. OT will attempt tx again tomorrow if pt is still admitted. 1, refusal [id number] CAMILLE MURO OT Apr 04, 2021 13:59
== END 2021-04-04 16:38 | disposition hospice, home (50) | DRG 481 ==
LOC: EDUNIT# 17:05 → ER 17:06 → 4TH 18:55
PROVIDERS: ADMIT Internal Medicine; ATTEND Family Medicine
PROC: 0QS636Z Reposition Right Upper Femur with Intramedullary Internal Fixation Device, Percutaneous Approach (ICD-10-PCS; principal; 2021-03-31 12:34)
DX: S72.141A Displaced intertrochanteric fracture of right femur, initial encounter for closed fracture (principal); D62 Acute posthemorrhagic anemia; W18.30XA Fall on same level, unspecified, initial encounter; F17.210 Nicotine dependence, cigarettes, uncomplicated; J44.9 Chronic obstructive pulmonary disease, unspecified; M81.0 Age-related osteoporosis without current pathological fracture; Z20.822 Contact with and (suspected) exposure to COVID-19; F03.90 Unspecified dementia, unspecified severity, without behavioral disturbance, psychotic disturbance, mood disturbance, and anxiety; R53.81 Other malaise; F32.9 Major depressive disorder, single episode, unspecified; K21.9 Gastro-esophageal reflux disease without esophagitis; Z79.82 Long term (current) use of aspirin; Z79.899 Other long term (current) drug therapy
CPT/HCPCS: 36415; 51702; 70450; 72125; 73502; 76000; 80053; 82607; 83540; 85025; 86850; 86900; 86901; 86920; 87081; 87636; 94640; 94664; 94760